=== PATIENT | male | born 1990 | race Caucasian/White ===

== ENCOUNTER 2017-10-29 21:27 | Emergency (ER) | payer MEDICAID, SELFPAY ==
[2017-10-29] VITALS (7 sets, daily range): BP systolic 128–172; BP diastolic 77–96; PULSE 71–96; RESP 14–24; TEMP 36.8; O2SAT 96–100; BMI 29.5
--- NOTE | 2017-10-29 21:34 | RAD_ITS ---
STUDY: X-RAY - LEFT ELBOW REASON FOR EXAM: Male, 26 years old. Fall. TECHNIQUE: 3 view(s) of the elbow. COMPARISON: None. FINDINGS: Exam limited by suboptimal positioning because of pain. There is fracture dislocation of the elbow. There is complete dislocation with the radius and ulna dorsal and cephalad to normal position. A displaced fracture fragment is seen probably off of the olecranon. Nondisplaced fracture of the radial head not excluded. Prominent soft tissue swelling. RAD/Elbow 2 Views IMPRESSION: Complete dislocation of the elbow along with at least one displaced fracture fragment. Note that the exam is limited by suboptimal positioning. Electronically Signed: Tyrel Velazquez MD at 22:34 EDT , Service support ,
[2017-10-29] MEDS: 0.9% Normal Saline 1,000 ML 150 ML IV (21:39)
[2017-10-29] MEDS: Ondansetron 4 MG/2 ML Vial IV (21:39)
[2017-10-29] MEDS: HYDROmorphone 1 MG/ML Syringe IV (21:40)
--- NOTE | 2017-10-29 22:53 | RAD_ITS ---
STUDY: X-RAY - LEFT ELBOW REASON FOR EXAM: Male, 26 years old. Post reduction TECHNIQUE: 2 view(s) of the elbow. COMPARISON: Prereduction study of earlier this date FINDINGS: Osseous structures are viewed through cast material. Film positioning is suboptimal. There has been interval reduction of previously noted proximal radial and ulnar dislocations. There is a small fracture fragment of the anterior elbow region, site of origin most likely the coronoid process. The soft tissue structures are unremarkable. RAD/Elbow 2 Views IMPRESSION: Interval reduction of previously noted radial and ulnar dislocations. Small calcific fragment of the anterior elbow joint, site of origin most likely the coronoid process. Electronically Signed: Vasiliy Reynoso MD at 23:45 EDT , Service support ,
--- NOTE | 2017-10-29 22:55 | ED.VISSUMM ---
- ER Visit Summary Date of Service: 10/29/17 Chief Complaint: Left elbow pain History of Present Illness: The patient is a 26 M who states he was skateboarding when he fell injuring the left elbow. EMS notes an obvious dislocation. He was placed in an air splint and transported. Patient states that he last had a cookie around 2000 hours. He states that he does not drink alcohol. He is a smoker. He denies any significant medical problems. He does note that he had prior ORIF of this elbow when he was a child at [facility]. Physical Examination: Afebrile vital signs are stable Gen: Well-nourished well-developed Head: Normocephalic atraumatic Eyes: Perrl EOMI ENT: TMs clear no rhinorrhea moist mucous membranes Neck: Supple no lymphadenopathy no JVD nontender CVS: Regular rate rhythm no murmurs normal S1-S2 Respiratory: No distress clear to auscultation bilaterally chest nontender Abdomen: Soft nontender nondistended normal bowel sounds no masses Back: Nontender Extremity: The left elbow is obviously posteriorly dislocated. There is deformity and limited range of motion. He is neurovascularly intact distally pain particular attention to the radial ulnar and median nerves and radial and ulnar pulses. He has excellent capillary refill. There does not appear to be any breaks in the skin. Skin: Normal color no rash Neuro: alert orientated ?3 CN II-XII intact normal strength sensation reflexes gait cerebellar Psych: Normal affect normal mood Test Results: X-rays revealed a complete elbow dislocation with associated fracture. Emergency Department Course and Treatment: Patient received IV fluids Dilaudid and Zofran. Patient is an ASA classification 1 as well as a Mallampati score of 1. Patient provided informed consent for the use of propofol for procedural sedation. Patient received 1 mg/kg of propofol followed by 0.5 mg/kg aliquots until adequate sedation was achieved. Once adequate sedation was achieved the elbow was easily reduced. It was splinted in a posterior Ortho-Glass splint at 90? and a small anterior piece was added for support. Postreduction films were obtained. Patient was allowed to recover. He remains neurovascularly intact. Patient will need to follow-up with orthopedics as soon as possible. The patient is a recovering heroin addict does not wish to have opiates at home. I will write for some ibuprofen and Tylenol. Impression: 1. Left elbow dislocation and fracture 2. Procedural sedation by emergency physician 3. Reduction of dislocation by emergency physician 4. Splint by emergency physician This note was generated with [employer] dictation software. It may contain incorrect words, spelling, and punctuation that were not noted in review of the chart prior to signing ED Disposition - Plan for ED Patient: Disposition: Home or Assisted Living Chief Complaint: Other, Pain/Inj Instructions: ED Fx Elbow Prescriptions: Acetaminophen [Tylenol Extra Strength] 500 - 1,000 mg PO Q6H PRN PRN #50 tab PRN Reason: Pain Ibuprofen [Motrin] 800 mg PO TID PRN PRN #30 tab PRN Reason: Pain Referrals: Fortino Adrian DO [STAFF PHYSICIAN] - (call on to arrange follow up)
[2017-10-29] MEDS: Propofol 200 MG/20 ML Vial 150 MG IV BOLUS (23:16)
[2017-10-29] MEDS: Propofol 200 MG/20 ML Vial 100 MG IV BOLUS (23:19)
[2017-10-29] MEDS: Ketorolac 30 MG/ML Syringe IV (23:24)
[2017-10-29] MEDS: Ibuprofen 400 MG Tablet 1600 MG PO (23:38)
[2017-10-29] MEDS: Acetaminophen 500 MG Tablet 1000 MG PO (23:39)
== END 2017-10-29 23:44 | disposition home or self-care (01) ==
PROVIDERS: Emergency Provider Emergency Medicine
DX: S42.402A Unspecified fracture of lower end of left humerus, initial encounter for closed fracture (principal); V00.131A Fall from skateboard, initial encounter; Y93.51 Activity, roller skating (inline) and skateboarding; Y92.9 Unspecified place or not applicable; F17.200 Nicotine dependence, unspecified, uncomplicated; F11.21 Opioid dependence, in remission
CPT/HCPCS: 24600; 29405; 73070; 96361; 96374; 96375; 99152; 99285; J7030; A4216; J2405

== ENCOUNTER 2017-10-30 13:14 | Emergency (ER) | payer MEDICAID, SELFPAY ==
[2017-10-30 13:15] VITALS: BP 146/102; PULSE 86; RESP 17; TEMP 36.3; O2SAT 99; BMI 28.3
[2017-10-30 13:30] VITALS: BP 135/80; PULSE 80; RESP 14; O2SAT 98
--- NOTE | 2017-10-30 13:45 | ED.DCSUM_ITS ---
- ER Visit Summary Date of Service: 10/30/17 Chief Complaint: [Swelling to left hand and paresthesias] History of Present Illness: The patient is a 26 M [presents the emergency department with complaint of swelling to his left hand and paresthesias to his thumb and hyperthenar eminence of his left hand. Patient was seen in the emergency department last evening after sustaining a fall and fracturing and dislocating his elbow. Patient had the elbow reduced and was splinted. Patient was advised to return if increased swelling, worsening pain, paresthesias or condition should worsen in any way. Patient states that he is a recovering drug addict and did not take the prescription of Percocet that he was offered. Patient's been using ibuprofen for the discomfort. Patient does not feel that the pain is any worse than it was last night however there is some increased swelling to his hand and he became concerned about. 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 Cranial nerves II through XII grossly intact. TMs clear. Mucous membranes moist. No adenopathy. Cardiovascular-regular rate and rhythm without murmur or ectopy Lungs-clear to auscultation, chest wall stable without crepitus or subcu emphysema Abdomen-normoactive bowel sounds, soft, nontender, no rebound or rigidity, no peritoneal signs. Extremities-intact ?4, normal range of motion, normal pulses. Left arm-patient has a long-arm splint in place and patient does have the arm in a sling. The sling was removed and patient has edema noted of the fingers of the hand. Patient has cap refill of less than 3 seconds. Patient has normal range of motion of the digits. The compartments of the forearm are soft on my examination as I was able to feel them between the posterior volar portions of the splint. Test Results: [None indicated] Emergency Department Course and Treatment: [] Treatment Plan: [Patient follow-up with orthopedics. Patient advised to keep the arm elevated and ice to the area. At this point there is no evidence for compartment syndrome.] Disposition: [Discharged home in stable condition] Impression: [Left elbow pain status post fracture dislocation of left elbow] Edema left hand This note was generated with Dragon dictation software. It may contain incorrect words, spelling, and punctuation that were not noted in review of the chart prior to signing ED Disposition - Plan for ED Patient: Chief Complaint: Upper Extremity Injury Referrals: Care Physician,No Primary [Primary Care Provider] -
--- NOTE | 2017-10-30 13:48 | ED.DEP ---
ED Disposition - Plan for ED Patient: Chief Complaint: Upper Extremity Injury Instructions: ED Fx Elbow Referrals: Care Physician,No Primary [Primary Care Provider] - Additional Instructions: see Surgeon you were advised to follow up with
[2017-10-30 13:58] VITALS: BP 128/78; PULSE 86; RESP 14; O2SAT 99
[2017-10-30] MEDS: Ibuprofen 400 MG Tablet 800 MG PO (14:04)
== END 2017-10-30 14:13 | disposition home or self-care (01) ==
LOC: ED 14:12
PROVIDERS: Emergency Provider Emergency Medicine
DX: S42.402A Unspecified fracture of lower end of left humerus, initial encounter for closed fracture (principal); W19.XXXA Unspecified fall, initial encounter; Y93.9 Activity, unspecified; Y92.9 Unspecified place or not applicable; R60.0 Localized edema; Z72.0 Tobacco use
CPT/HCPCS: 99283

== ENCOUNTER 2017-11-01 16:35 | Emergency (ER) | payer MEDICAID, SELFPAY ==
[2017-11-01 16:36] VITALS: BP 159/84; PULSE 93; RESP 16; TEMP 36.2; O2SAT 98; BMI 28.0
--- NOTE | 2017-11-01 18:02 | CT_ITS ---
CT of the left upper extremity INDICATION: Trauma TECHNIQUE: CT of the left elbow was performed in axial plane without contrast followed by sagittal and coronal reconstructions. Radiographic technique was optimized to limit patient radiation dose. DLP was 622.07. FINDINGS: There is a comminuted intraarticular fracture of the the coronoid process of the ulna with separation of the fracture fragments and tiny bony fragments within the joint space in association with joint effusion. There also appears to be a very subtle chip or avulsed cortical fracture of the anterior medial humeral epicondyle CT/Extremity Upper without Contra IMPRESSION: Limited displaced fracture of the coronoid process of the ulna and possible chip fracture of the anterior medial humeral epicondyle Electronically Signed: Octavio Mahajan MD at 18:51 EDT , Service support ,
--- NOTE | 2017-11-01 19:00 | ED.DCSUM_ITS ---
- ER Visit Summary Date of Service: 11/01/17 Chief Complaint: Need a CT of my elbow History of Present Illness: The patient is a [address] Adrian. He had a fracture dislocation of his left elbow on October 28. Saw Dr. Adrian in the office today and he ordered a CT for operative planning but they were unable to obtain this as an outpatient so is presented here for the study. Patient reports she has sharp, burning pain in his left elbow that is 10 out of 10 when he sits up is 5 out of 10 after ibuprofen and Tylenol. Denies any paresthesias distally. Physical Examination: Vitals: Stable. Afebrile. General: Well-nourished and well-developed. Head: Normocephalic atraumatic. Neck: Supple, no lymphadenopathy. No JVD. Nontender. Cardiovascular: Regular rate and rhythm. No murmurs. Respiratory: No respiratory distress. Clear to auscultation bilaterally. Abdominal: Soft, nontender, nondistended, normal bowel sounds. No guarding, rebound, or peritoneal signs. Back: Nontender. Extremities: Left arm is in a long-arm posterior splint. He has less than 2 second capillary refill in his fingers. He has normal sensation light touch. Skin: Normal color, no rash. Neurologic: Alert and oriented ?3. Cranial nerves II through XII are intact. Normal strength and sensation. Psych: Normal affect. Test Results: CT of his left elbow shows a minimally displaced fracture of the coronoid process and possible chip fracture of the anterior medial humeral epicondyle. Emergency Department Course and Treatment: Patient's resting comfortably without complaint. Treatment Plan: Patient will be discharged instructions for Dr. Adrian as previously scheduled. Disposition: To home in improved and stable condition. Impression: 1. Left elbow fracture, repeat visit. This note was generated with [employer] dictation software. It may contain incorrect words, spelling, and punctuation that were not noted in review of the chart prior to signing ED Disposition - Plan for ED Patient: Disposition: Home or Assisted Living Chief Complaint: Upper Extremity Injury Instructions: ED Fx Elbow Referrals: Fortino Adrian DO [STAFF PHYSICIAN] - Keep Gabino appointment
[2017-11-01 19:15] VITALS: RESP 18
--- NOTE | 2017-11-01 19:15 | NURSING ---
pt states he understands d/c instructions and will follow up with lashawn
== END 2017-11-01 19:15 | disposition home or self-care (01) ==
LOC: ED 18:06
PROVIDERS: Emergency Provider Emergency Medicine
DX: S42.132A Displaced fracture of coracoid process, left shoulder, initial encounter for closed fracture (principal); X58.XXXA Exposure to other specified factors, initial encounter; Z72.0 Tobacco use
CPT/HCPCS: 73200; 99282

== ENCOUNTER 2017-11-06 21:30 | Emergency (ER) | payer MEDICAID, SELFPAY ==
[2017-11-06 21:31] VITALS: BP 144/81; PULSE 62; RESP 14; TEMP 36.5; O2SAT 98; BMI 28.5
== END 2017-11-06 21:48 | disposition left against medical advice (07) ==
LOC: ED 21:45
PROVIDERS: Emergency Provider Emergency Medicine
DX: R69 Illness, unspecified (principal)

== ENCOUNTER 2019-02-06 20:12 | Observation (INO) | payer MEDICAID, SELFPAY ==
[2019-02-06 20:13] VITALS: BP 148/100; PULSE 88; RESP 16; TEMP 36.7; O2SAT 100; BMI 22.7
--- NOTE | 2019-02-06 20:47 | ED.DCSUM_ITS ---
History of Present Illness Chief Complaint: Substance Abuse Informant: Patient Context: Gradual Onset Timing: Intermittent Maximum Severity: Severe Narrative: Patient is a 28-year-old male with history of IV drug abuse and hepatitis C presenting with request for detox. He states that he has been using IV heroin multiple times a day for the past year. He is also been using meth quite regularly but not as much. He states he last use this morning. He is currently complaining of stomach cramps, headache and chills as well as nausea. He states he last detoxed in 2018 when he was in long term. At that time he was clean for 10 months. He denies any regular alcohol use. He denies any recent fever, chills or other complaints. Past Medical History - Allergies and Home Meds Allergies/Adverse Reactions: Allergies latex Allergy (Verified 11/06/17 21:36) Hives Penicillins [PCN] Allergy (Verified 11/06/17 21:36) Anaphylaxis venom-honey bee [bee venom (honey bee)] Allergy (Verified 11/06/17 21:36) Swelling Past Medical History: - - Hepatitis C, IVDU Surgical History: noncontributory, - - Cholecystectomy, R ORIF Clavicle, RUE ganglion cyst, Reconstruction LUE. Smoking Status: Current every day smoker - Family History Maternal Family History: Reports: Diabetes, Heart Disease, Hypertension Paternal Family History: Reports: Diabetes, Heart Disease, Hypertension Sibling Family History: Reports: No pertinent history Review of Systems All systems negative except as indicated General: Reports: Chills, Malaise Gastrointestinal: Reports: Abdominal pain, Nausea, Vomiting Physical Exam Vital Signs/Narrative: Vital Signs Temp Pulse Resp BP Pulse Ox 02/06/19 20:13 98.1 F 88 16 148/100 H 100 Inital Vital Signs reviewed: Yes General: Well nourished, Well developed, No Acute Distress Head: Normocephalic, Atraumatic Eyes: Perrl, EOMI ENT: Moist mucous membranes, No rhinorrhea Neck: Supple, Nontender Cardiovascular: Regular rate, Regular rhythm Respiratory: No distress, Chest nontender Abdomen: Soft, Nondistended, Normal bowel sounds, Tender - diffuse, mild . Negative for: Guarding, Rebound tenderness Back: Nontender, Normal Inspection Extremities: Nontender, No edema Skin: Normal color, No rash, - - Track ruiz on the left upper extremity, no surrounding cellulitic changes Neurological: Alert, Oriented x3, Cranial nerves II-XII grossly intact, Normal Strength, Normal Sensation Psychological: Normal affect, Normal Mood Diagnostic/Tx/Re-eval Laboratory Data 02/06/19 02/06/19 02/06/19 21:30 21:30 21:30 WBC 5.7 RBC 4.73 Hgb 13.4 Hct 42.5 MCV 89.9 MCH 28.3 MCHC 31.5 L RDW Std Deviation 47.6 H RDW Coeff of Vanesas 14.5 Plt Count 239 MPV 9.6 Immature Gran % (Auto) 0.900 Neut % (Auto) 41.5 L Lymph % (Auto) 46.4 H Coffee % (Auto) 6.5 Eos % (Auto) 4.0 Baso % (Auto) 0.7 Absolute Neuts (auto) 2.4 Absolute Lymphs (auto) 2.66 Nucleated RBC % 0 Differential Comment SCANNED PT 12.7 INR 1.0 Sodium Potassium Chloride Carbon Dioxide Anion Gap BUN Creatinine Estim Creat Clear Calc Est GFR (MDRD) Af Amer Est GFR (MDRD) Non-Af BUN/Creatinine Ratio Glucose Calcium Total Bilirubin AST ALT Alkaline Phosphatase Total Protein Albumin Globulin Albumin/Globulin Ratio Urine Opiates Screen Urine Methadone Screen Ur Barbiturates Screen Ur Phencyclidine Scrn Ur Amphetamines Screen U Methamphetamin-MDMA U Benzodiazepines Scrn Urine Cocaine Screen U Cannabinoids Screen Ur Drug Screen Comment Ethyl Alcohol 17.0 02/06/19 02/06/19 21:30 21:40 WBC RBC Hgb Hct MCV MCH MCHC RDW Std Deviation RDW Coeff of Vanessa Plt Count MPV Immature Gran % (Auto) Neut % (Auto) Lymph % (Auto) Coffee % (Auto) Eos % (Auto) Baso % (Auto) Absolute Neuts (auto) Absolute Lymphs (auto) Nucleated RBC % Differential Comment PT INR Sodium 138 Potassium 3.9 Chloride 102 Carbon Dioxide 32.0 Anion Gap 4 L BUN 12 Creatinine 0.84 Estim Creat Clear Calc 132.96 Est GFR (MDRD) Af Amer 140 Est GFR (MDRD) Non-Af 116 BUN/Creatinine Ratio 14.3 Glucose 84 Calcium 8.8 Total Bilirubin 1.60 H AST 564 H ALT 1549 H Alkaline Phosphatase 592 H Total Protein 7.2 Albumin 3.0 L Globulin 4.2 Albumin/Globulin Ratio 0.7 L Urine Opiates Screen NEGATIVE Urine Methadone Screen NEGATIVE Ur Barbiturates Screen NEGATIVE Ur Phencyclidine Scrn NEGATIVE Ur Amphetamines Screen POSITIVE H U Methamphetamin-MDMA NEGATIVE U Benzodiazepines Scrn NEGATIVE Urine Cocaine Screen NEGATIVE U Cannabinoids Screen NEGATIVE Ur Drug Screen Comment Ethyl Alcohol - Medical Decision Making Patient is evaluated for opioid withdrawal. Presentation and symptoms are consistent with this. Tox panel is negative for opioids the patient states he been using heroin. Patient also admits to methamphetamine use. She was given clonidine and Zofran for symptomatic treatment. Screening lab work is obtained which shows a transaminitis but no other acute process. Patient does have a known history of hepatitis which is likely causing this transaminitis. Patient is admitted to hospitalist service for detox. He is agreeable with this plan. He is stable for the general medical floor at time of disposition. Patient denies regular alcohol use and I am not concerned for alcohol withdrawal at this time. ED Disposition - Plan for ED Patient: Disposition: Acute Care Hospital [facility] Diagnosis: Opioid withdrawal syndrome, Polysubstance (including opioids) dependence, daily use, Transaminitis
[2019-02-06] MEDS: Ondansetron ODT 4 MG Tablet PO (21:00)
[2019-02-06] MEDS: Clonidine HCl 0.1 MG, Clonidine HCl 0.2 MG 0.3 MG PO (21:25)
[2019-02-06 21:34] LABS: Absolute Lymphocyte Count 2.66 X10^3/uL (0.83-4.51); Absolute Neutrophil Count 2.4 X10^3/uL (2.0-7.7); Basophil# 0.04 X10^3/uL; Basophil% 0.7 % (0-1); Eosinophil# 0.23 X10^3/uL; Hematocrit 42.5 % (40-54); Hemoglobin 13.4 g/dL (13.0-16.5); Lymphocyte # 2.66 X10^3/ul (4.0); Lymphocyte % 46.4 % (19-41); Mean Corp Hgb Conc 31.5 g/dL (32-36); Mean Corpuscular Hgb 28.3 pg (27.0-32.0); Mean Corpuscular Volume 89.9 fL (80-94); Mean Platelet Vol. 9.6 fl (6.2-12.0); Monocyte# 0.37 X10^3/uL; Monocyte% 6.5 % (0-10); NRBC Flagged by Analyzer 0 % (0-5); Neutrophil # 2.38 X10^3/uL (2.7-7.7); Neutrophil % 41.5 % (47-70); POSITIVE MORPHOLOGY YES; Platelet Count 239 K/mm3 (150-450); RBC Distribution Width CV 14.5 % (11.6-14.6); RBC Distribution Width SD 47.6 fl (35.1-43.9); Red Blood Count 4.73 M/mm3 (4.6-6.2); White Blood Count 5.7 K/mm3 (4.4-11.0)
[2019-02-06 21:37] LABS: Differential Indicated SCAN CRITERIA MET
[2019-02-06 21:53] LABS: Differential Comment SCANNED
[2019-02-06 21:56] LABS: Prothrombin Time (Protime)PT. 12.7 SECONDS (11.7-14.9)
[2019-02-06 22:15] LABS: ALB/GLOB Ratio 0.7 RATIO (0.9-2.4); AST(SGOT) 564 U/L (15-37); Alanine Aminotransfer ALT/SGPT 1549 U/L (16-61); Alkaline Phosphatase 592 U/L (45-117); Anion Gap 4 (5-15); BUN 12 mg/dL (7-18); BUN/Creat Ratio 14.3 RATIO (10-20); Calcium,Total 8.8 mg/dL (8.5-10.1); Chloride 102 mmol/L (98-107); Creatinine, Serum 0.84 mg/dL (0.70-1.30); EST Glomerular Filtration Rate 116 mL/min (>60); Est Glom Filt Rate - Afr Amer 140 mL/min (>60); Estimated Creatinine Clearance 132.96 ml/min; Globulin 4.2 g/dL (2.2-4.2); Glucose 84 mg/dL (74-106); Potassium 3.9 mmol/L (3.5-5.1); Protein, Total 7.2 g/dL (6.4-8.2); Sodium Level 138 mmol/L (136-145)
[2019-02-06 22:15] LABS: Amphetamine Urine VISTA POSITIVE (<1000 ng/mL); Barbiturate Urine VISTA NEGATIVE (< 200 ng/mL); Benzodiazepine Urine VISTA NEGATIVE (< 200 ng/mL); Cocaine Urine VISTA NEGATIVE (< 300 ng/mL); Ecstacy Urine VISTA NEGATIVE (< 500 ng/mL); Methadone Urine VISTA NEGATIVE (< 300 ng/mL); PCP Urine VISTA NEGATIVE (< 25 ng/mL); THC Urine VISTA NEGATIVE (< 50 ng/mL); Vista UDS pH Range 7
--- NOTE | 2019-02-06 22:56 | PCM.HP.STD ---
Problem List (1) Opioid withdrawal syndrome Status: Acute (2) Polysubstance (including opioids) dependence, daily use Status: Acute (3) Wound infection complicating hardware Status: Inactive Qualifiers: Encounter type: initial encounter Qualified Code(s): T84.7XXA - Infection and inflammatory reaction due to other internal orthopedic prosthetic devices, implants and grafts, initial encounter (4) Infection of clavicle Status: Inactive (5) Heroin abuse Status: Chronic (6) Tobacco use Status: Chronic (7) Methamphetamine abuse Status: Chronic (8) Hepatitis C Status: Chronic Qualifiers: Viral hepatitis chronicity: unspecified Hepatic coma status: without hepatic coma Qualified Code(s): B19.20 - Unspecified viral hepatitis C without hepatic coma History of Present Illness Date of Admission: 02/06/19 Chief Complaint: Opioid withdrawal symptoms The patient is a 28 year old M with history of chronic opioid use, IV heroin and methamphetamine, chronic hepatitis C came to ER for multiple symptoms of heroin withdrawal including stomach cramps, muscle aches and pains, headache, chills, nausea, restlessness and tremors. His last dose was in the morning today; more than 12 hours ago. He does have grams heroin every day since teenage. Patient also uses methamphetamine IV. Smokes a pack per day since teenage. Denies alcohol use. Patient was largest detox in 2018 when he was in the senior care. [] Past Medical History Past Medical History (Chronic Problems): Chronic Problems Heroin abuse (Chronic) Tobacco use (Chronic) Methamphetamine abuse (Chronic) Hepatitis C (Chronic) Allergies latex Allergy (Verified 11/06/17 21:36) Hives Penicillins [PCN] Allergy (Verified 11/06/17 21:36) Anaphylaxis venom-honey bee [bee venom (honey bee)] Allergy (Verified 11/06/17 21:36) Swelling Home Medications: Ambulatory Orders Medication Instructions Recorded NK 02/06/19 Surgical History: noncontributory, - - Cholecystectomy, R ORIF Clavicle, RUE ganglion cyst, Reconstruction LUE. Smoking Status: Current every day smoker - *Family History Maternal History Items: Diabetes, Heart Disease, Hypertension Paternal History Items: Diabetes, Heart Disease, Hypertension Sibling History Items: No pertinent history Review of Systems Constitutional: Reports: Chills, Malaise, Weakness HEENT: Reports: Head Aches. Denies: Sinus Congestion, Sinus Drainage Cardiovascular: Denies: Chest Pain, Palpitations Respiratory: Denies: Cough, Shortness of breath at rest, Sputum production Gastrointestinal: Reports: Abdominal Pain, Nausea. Denies: Vomiting Genitourinary: Denies: Dysuria, Frequency, Hematuria, Urgency Musculoskeletal: Reports: Muscle pain. Denies: Joint Pain, Joint Tenderness Skin: Denies: Rash, Wounds Neurological: Denies: Numbness, Tingling, Focal weakness Psychiatric: Reports: Anxiety. Denies: Depression, Homicidal Ideations, Suicidal Ideations Hematologic/ Lymphatic: Denies: Easy Bruising, Easy Bleeding VTE Information - Inpt Only VTE Present on Admission: No VTE Mechan Device Prophylaxis: None VTE Pharm Prophylaxis ordered?: No Reason prophylaxis not ordered:: Procedure Not Indicated - Low risk Patient Problems: Active and Suspected Problems Opioid withdrawal syndrome (Acute) Polysubstance (including opioids) dependence, daily use (Acute) - Physical Exam General: Alert, Oriented x3, Cooperative HEENT: Atraumatic, PERRLA, EOMI, Normocephalic Neck: Supple, No JVD, Negative Carotid Bruits Lungs: Clear to auscultation, Normal air movement, No rhonchi, No wheeze, No rales Cardiovascular: Regular rate, Regular Rhythm, Normal S1, Normal S2, No murmurs Abdomen: Bowel Sounds Present, Soft, Non Tender, Non-Distended Extremities: No edema, Capillary Refill Less than 3 Seconds Skin: No rashes, No breakdown Musculoskeletal: No Tenderness to Palpation of Joints or Extremities, Tenderness - Diffuse muscle tenderness. Neurological: Cranial nerves II-XII grossly intact, Deep Tendon Reflexes 2+/4 and Symmetrical, Neuro grossly intact, Motor Exam 5/5 strength throughout Psych/Mental Status: Normal Affect, Appropriate Vital Signs Temp Pulse Resp BP Pulse Ox 98.1 F 88 16 148/100 H 100 02/06/19 20:13 02/06/19 20:13 02/06/19 20:13 02/06/19 20:13 02/06/19 20:13 Oxygen Delivery Method Room Air Weight: 158 lb 4.67 oz Body Mass Index (BMI) 22.7 Laboratory Tests Past 24 Hrs 02/06/19 02/06/19 02/06/19 21:30 21:30 21:30 WBC 5.7 RBC 4.73 Hgb 13.4 Hct 42.5 MCV 89.9 MCH 28.3 MCHC 31.5 L RDW Std Deviation 47.6 H RDW Coeff of Vanessa 14.5 Plt Count 239 MPV 9.6 Immature Gran % (Auto) 0.900 Neut % (Auto) 41.5 L Lymph % (Auto) 46.4 H [place] % (Auto) 6.5 Eos % (Auto) 4.0 Baso % (Auto) 0.7 Absolute Neuts (auto) 2.4 Absolute Lymphs (auto) 2.66 Nucleated RBC % 0 Differential Comment SCANNED PT 12.7 INR 1.0 Sodium Potassium Chloride Carbon Dioxide Anion Gap BUN Creatinine Estim Creat Clear Calc Est GFR (MDRD) Af Amer Est GFR (MDRD) Non-Af BUN/Creatinine Ratio Glucose Calcium Total Bilirubin AST ALT Alkaline Phosphatase Total Protein Albumin Globulin Albumin/Globulin Ratio Urine Opiates Screen Urine Methadone Screen Ur Barbiturates Screen Ur Phencyclidine Scrn Ur Amphetamines Screen U Methamphetamin-MDMA U Benzodiazepines Scrn Urine Cocaine Screen U Cannabinoids Screen Ur Drug Screen Comment Ethyl Alcohol 17.0 02/06/19 02/06/19 21:30 21:40 WBC RBC Hgb Hct MCV MCH MCHC RDW Std Deviation RDW Coeff of Vanessa Plt Count MPV Immature Gran % (Auto) Neut % (Auto) Lymph % (Auto) [place] % (Auto) Eos % (Auto) Baso % (Auto) Absolute Neuts (auto) Absolute Lymphs (auto) Nucleated RBC % Differential Comment PT INR Sodium 138 Potassium 3.9 Chloride 102 Carbon Dioxide 32.0 Anion Gap 4 L BUN 12 Creatinine 0.84 Estim Creat Clear Calc 132.96 Est GFR (MDRD) Af Amer 140 Est GFR (MDRD) Non-Af 116 BUN/Creatinine Ratio 14.3 Glucose 84 Calcium 8.8 Total Bilirubin 1.60 H AST 564 H ALT 1549 H Alkaline Phosphatase 592 H Total Protein 7.2 Albumin 3.0 L Globulin 4.2 Albumin/Globulin Ratio 0.7 L Urine Opiates Screen NEGATIVE Urine Methadone Screen NEGATIVE Ur Barbiturates Screen NEGATIVE Ur Phencyclidine Scrn NEGATIVE Ur Amphetamines Screen POSITIVE H U Methamphetamin-MDMA NEGATIVE U Benzodiazepines Scrn NEGATIVE Urine Cocaine Screen NEGATIVE U Cannabinoids Screen NEGATIVE Ur Drug Screen Comment Ethyl Alcohol Assessment/Plan All Active Problems Opioid withdrawal syndrome (Acute) Polysubstance (including opioids) dependence, daily use (Acute) The patient is a 28 year old M with history of chronic opioid use, IV heroin and methamphetamine, chronic hepatitis C came to ER for multiple symptoms of heroin withdrawal including stomach cramps, muscle aches and pains, headache, chills, nausea, restlessness and tremors. 1. Acute opioid withdrawal syndrome: [facility]. Started on order set for stabilization of withdrawal syndrome with Librium scheduled and taper dose, clonidine, hydroxyzine, Motrin, methocarbamol, trazodone and clonidine. Labs reviewed. U tox positive of methamphetamine. 2. Polysubstance use including amphetamines urinary dependence, nicotine dependence/cigarette smoking: On nicotine patch. 3. Chronic hepatitis C with elevated transaminases: ALT 1549, AST 564, alkaline phosphatase 592. Albumin is 3.0. Right upper quadrant sonogram ordered for tomorrow a.m. 4. Patient has history of infection of hardware of right clavicle after clavicular fracture status post ORIF. 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 Hardware was removed on 11/07/18, wound culture consistent with MRSA. DVT prophylaxis: Low risk. Early ambulation encouraged. Laboratory Results 02/06/19 21:30: WBC 5.7, RBC 4.73, Hgb 13.4, Hct 42.5, MCV 89.9, MCH 28.3, MCHC 31.5 L, RDW Std Deviation 47.6 H, RDW Coeff of Vanessa 14.5, Plt Count 239, MPV 9.6, Immature Gran % (Auto) 0.900, Neut % (Auto) 41.5 L, Lymph % (Auto) 46.4 H, [place] % (Auto) 6.5, Eos % (Auto) 4.0, Baso % (Auto) 0.7, Absolute Neuts (auto) 2.4, Absolute Lymphs (auto) 2.66, Nucleated RBC % 0, Differential Comment SCANNED 02/06/19 21:30: PT 12.7, INR 1.0 02/06/19 21:30: Ethyl Alcohol consistent with .0 02/06/19 21:30: Sodium 138, Potassium 3.9, Chloride 102, Carbon Dioxide 32.0, Anion Gap 4 L, BUN 12, Creatinine 0.84, Estim Creat Clear Calc 132.96, Est GFR (MDRD) Af Amer 140, Est GFR (MDRD) Non-Af 116, BUN/Creatinine Ratio 14.3, Glucose 84, Calcium 8.8, Total Bilirubin 1.60 H, AST 564 H, ALT 1549 H, Alkaline Phosphatase 592 H, Total Protein 7.2, Albumin 3.0 L, Globulin 4.2, Albumin/Globulin Ratio 0.7 L 02/06/19 21:40: Urine Opiates Screen NEGATIVE, Urine Methadone Screen NEGATIVE, Ur Barbiturates Screen NEGATIVE, Ur Phencyclidine Scrn NEGATIVE, Ur Amphetamines Screen POSITIVE H, U Methamphetamin-MDMA NEGATIVE, U Benzodiazepines Scrn NEGATIVE, Urine Cocaine Screen NEGATIVE, U Cannabinoids Screen NEGATIVE, Ur Drug Screen Comment Code Visit Inpatient E&M: 67612 Init Hosp L3
[2019-02-07 00:04] VITALS: BMI 21.9; BMI 22.0
[2019-02-07 00:16] VITALS: BP 144/82; PULSE 71; RESP 20; TEMP 36.8; O2SAT 99
[2019-02-07] MEDS: traZODone 50 MG Tablet PO (00:53)
[2019-02-07] MEDS: chlordiazePOXIDE 25 MG Capsule PO ×3 (00:53→09:47)
[2019-02-07] MEDS: Buprenorphine HCl 2 MG TAB.SUBL 4 MG SL ×2 (00:55→09:47)
[2019-02-07 04:10] VITALS: BP 134/72; PULSE 50; RESP 18; TEMP 36.3; O2SAT 98
--- NOTE | 2019-02-07 06:56 | PN_ITS ---
Subjective: The patient is a 28-year-old male with a past medical history of polysubstance abuse, infection of his clavicle in the past, wound infection co mplicating orthopedic hardware in the past (hardware removed in October 2018), tobacco dependence and hep C. He presented to the emergency department at [facility] on 02/06/2019 complaining of stomach cramps, muscle aches and pains, headache, chills, nausea and restlessness presumed to be secondary to acute heroin withdrawal. He has been using heroin since he was a teenager. He also uses intravenous methamphetamine. His last detox was in 2018 when he was incarcerated and when he was released from jail he was sober for 10 months. Vital signs at presentation to the emergency department were temperature 98.1, pulse rate 88, blood pressure 148/100, respiratory rate 16 and he was 100% saturated on room air. CBC was unremarkable. CMP was significant for a total bilirubin of 1.6, AST of 564, ALT of 1549, alkaline phosphatase 592 and albumin of 3.0. Tox screen was positive for methamphetamine. He was admitted to [facility] for medical stabilization for acute opiate withdrawal. Security was called this AM because he was screaming in his room and disturbing other patients. He was also punching the keenan. His GF came in and when I attempted to enter the room he slammed the door in my face and said now is not a good time. He also thrust the door shut when the charge nurse entered the room. He had 2 knives with him and at least 1 syringe. His GF was obviously impaired. The police came up to the floor and he agreed to let them search his belongings for syringes and weapons. When the officer lifted a sweater on the ledge up he jumped up and said he wanted the muffin on the top of the sweater and then proceeded to shake the sweater and allow the muffin pieces to fall on the floor. While the door was a little open I saw ripped up paper on the floor and blankets and sheets on the floor. I felt he was a danger to the staff and myself and I suspect the GF brought drugs with her. Behavior was very bizarre and I asked the officers to please escort him out of the hospital and he was discharged. - Physical Exam Vital Signs Temp Pulse Resp BP Pulse Ox 97.3 F L 50 L 18 134/72 H 98 02/07/19 04:10 02/07/19 04:10 02/07/19 04:10 02/07/19 04:10 02/07/19 04:10 Oxygen Delivery Method Room Air Weight: 153 lb 3.54 oz Body Mass Index (BMI) 21.9 Intake and Output for Last 24 Hours 02/05/19 02/06/19 02/07/19 23:59 23:59 23:59 Intake Total 300 / 300 Balance 300 / 300 Laboratory Tests Past 24 Hrs 02/06/19 02/06/19 02/06/19 21:30 21:30 21:30 WBC 5.7 RBC 4.73 Hgb 13.4 Hct 42.5 MCV 89.9 MCH 28.3 MCHC 31.5 L RDW Std Deviation 47.6 H RDW Coeff of Vanessa 14.5 Plt Count 239 MPV 9.6 Immature Gran % (Auto) 0.900 Neut % (Auto) 41.5 L Lymph % (Auto) 46.4 H [place] % (Auto) 6.5 Eos % (Auto) 4.0 Baso % (Auto) 0.7 Absolute Neuts (auto) 2.4 Absolute Lymphs (auto) 2.66 Nucleated RBC % 0 Differential Comment SCANNED PT 12.7 INR 1.0 Sodium Potassium Chloride Carbon Dioxide Anion Gap BUN Creatinine Estim Creat Clear Calc Est GFR (MDRD) Af Amer Est GFR (MDRD) Non-Af BUN/Creatinine Ratio Glucose Calcium Total Bilirubin AST ALT Alkaline Phosphatase Total Protein Albumin Globulin Albumin/Globulin Ratio Urine Opiates Screen Urine Methadone Screen Ur Barbiturates Screen Ur Phencyclidine Scrn Ur Amphetamines Screen U Methamphetamin-MDMA U Benzodiazepines Scrn Urine Cocaine Screen U Cannabinoids Screen Ur Drug Screen Comment Ethyl Alcohol 17.0 02/06/19 02/06/19 21:30 21:40 WBC RBC Hgb Hct MCV MCH MCHC RDW Std Deviation RDW Coeff of Vanessa Plt Count MPV Immature Gran % (Auto) Neut % (Auto) Lymph % (Auto) [place] % (Auto) Eos % (Auto) Baso % (Auto) Absolute Neuts (auto) Absolute Lymphs (auto) Nucleated RBC % Differential Comment PT INR Sodium 138 Potassium 3.9 Chloride 102 Carbon Dioxide 32.0 Anion Gap 4 L BUN 12 Creatinine 0.84 Estim Creat Clear Calc 132.96 Est GFR (MDRD) Af Amer 140 Est GFR (MDRD) Non-Af 116 BUN/Creatinine Ratio 14.3 Glucose 84 Calcium 8.8 Total Bilirubin 1.60 H AST 564 H ALT 1549 H Alkaline Phosphatase 592 H Total Protein 7.2 Albumin 3.0 L Globulin 4.2 Albumin/Globulin Ratio 0.7 L Urine Opiates Screen NEGATIVE Urine Methadone Screen NEGATIVE Ur Barbiturates Screen NEGATIVE Ur Phencyclidine Scrn NEGATIVE Ur Amphetamines Screen POSITIVE H U Methamphetamin-MDMA NEGATIVE U Benzodiazepines Scrn NEGATIVE Urine Cocaine Screen NEGATIVE U Cannabinoids Screen NEGATIVE Ur Drug Screen Comment Ethyl Alcohol Medical Necessity - Tobacco Use Smoking Status: Current every day smoker Assessment/Plan All Active Problems Opioid withdrawal syndrome (Acute) Polysubstance (including opioids) dependence, daily use (Acute) Transaminitis (Acute) Impressions 1. acute opiate withdrawal 2. polysubstance abuse 3. aggressive behavior - putting hospital personnel at risk DC
--- NOTE | 2019-02-07 07:03 | US_ITS ---
STUDY: ABDOMINAL ULTRASOUND - RIGHT UPPER QUADRANT REASON FOR VISIT: Male, 28 years old hepatitis C TECHNIQUE: Ultrasound evaluation of the right upper quadrant was performed with real-time and static momin-scale imaging. TECHNICAL QUALITY: Adequate. COMPARISON: None. FINDINGS: Liver: The liver measures 16.3 cm. There is normal echogenicity of the liver. The bile ducts are within normal limits. There is hepatic color flow. The direction of portal flow is hepatopetal. There is no demonstrated mass lesion. Gallbladder: Status post cholecystectomy. Common Bile Duct (C.B.D.): The common bile duct measures 3.2 mm. Pancreas: Normal size of the head, body and tail of the pancreas. There is normal echogenicity of the pancreas. There is no demonstrated pancreatic mass or cyst. Right Kidney: Normal size of the right kidney. The right kidney measures 11.9 x 6.2 x 4.7 cm. Normal renal cortex. The right cortex measures 1.3 cm. There is no demonstrated renal mass or cyst. There is no right hydronephrosis. US/Liver IMPRESSION: Normal right upper quadrant ultrasound examination. Electronically Signed: Dillan Chavez DO at 8:47 EDT Tel [phone], Service support ,
[2019-02-07 08:38] LABS: Prothrombin Time (Protime)PT. 12.8 SECONDS (11.7-14.9)
[2019-02-07 09:40] VITALS: BP 136/94; PULSE 64; RESP 18; TEMP 36.5; O2SAT 98
[2019-02-07] MEDS: Ibuprofen 600 MG Tablet 400 MG PO (09:47)
[2019-02-07] MEDS: Methocarbamol 750 MG Tablet PO (09:47)
--- NOTE | 2019-02-07 10:10 | NURSING ---
Pt heard yelling/screaming, this nurse entered room. Pt in bathroom, talking on phone and yelling, pounded bathroom wall with arm. Pt came out of the bathroom, visitor at bedside. Pt yelled loudly at visitor to leave his room and pt began putting his clothes on stating he was leaving, stating I have to go see my girlfriend. Pt's visitor left room and went into hallway. Pt sat on floor, rocking back and forth and crying I just don't know what to do!. Pt called girlfriend again on phone, pt talking calmly at this time. Pt talked calmly to staff about wanting to see/talk to his girlfriend. Pt walking around in room with keren on, noted 2 pocket knives in pt's backpocket. When asked about them, pt easily gave them up to this nurse and 2 pocket knives were locked up in business support administrator room and pt told that he will get knives back when he leaves. Pt also pulled a syringe out of his pocket and asked if he could put syringe in sharps container. Syringe disposed of in sharps container. Pt calm at this time, told this nurse to tell his male visitor to come back at 1500. Security up on floor and talked to patient. Pt remains calm at this time.
--- NOTE | 2019-02-07 10:56 | NURSING ---
At 1005 this RN was walking near pt room and heard very loud bang- pt was in his bathroom and used his hand to hit the wall and was yelling at his friend, the one who brought pt to hospital. Due to loud yelling difficult to understand what was going on- however, pt stated something about can't live without his girl and that he doesn't want anyone else. This RN called security at 1008 and Sam came to unit. In the mean time pt exited bathroom and sat down on the floor at the end of his bed and yelled at the top of his voice that he really wants to do this but that he cannot if he doesn't have his . Other patient on unit and staff were disturbed by this interruption. Sam on unit and spoke with pt and his friend. Friend left and girlfriend agreed to come to hospital to see pt. Pt returned to bed after hearing this with no further issues. It was found that pt had 2 knives in his back pocket and a syringe that he discarded into the sharps container. Knives were locked up by primary nurse in room. Due to safety concerns for pt, staff and visitors- pt was placed on room camera. Girlfriend arrived at 1048.
--- NOTE | 2019-02-07 14:00 | NURSING ---
Police and security on floor at this time. Pt's female visitor left room and went down elevators off of 3rd floor. Security followed female visitor when she left.
--- NOTE | 2019-02-07 14:20 | NURSING ---
2 knives that had previously been locked up given to police officers at this time. Pt escorted off floor by security and two police officers.
--- NOTE | 2019-02-07 15:12 | NURSING ---
Girlfriend left pt's room to use bathroom and then came to nurses' desk inquiring what room Mark Darling is in. This RN notified her which room and then she entered room and closed door. Room camera not able to see pt and girlfriend in room and could see things moving toward bottom of camera. Papers were strewn about room- Dr. Potter attempted to enter pt's room to complete assessment and pt yelled, this is not a good time and ran toward door to close it. Staff could not see pt on camera and this RN entered room to ensure safety of patient and visitor. Pt again ran toward door yelling this is not a good time. He was holding a sheet. Girlfriend was in background and placed hands on her cheeks and states, oh my God!. Pt closed door. This RN again looked at camera and could not see pt or girlfriend. Concerned for pt safety and visitor safety security was called with police accompaniment. Dr. Potter on unit at this time and aware of situation. Dr. Potter states that due to concerns for safety for staff and patient that he will be d/c'ed at this time. Girlfriend left immediately. Pt sat in bed eating food from his tray and became upset when police picked up his sweatshirt because he voiced concern over needing the muffin. Patient d/c'ed from unit with police escort.
[2019-02-08 20:18] LABS: Hepatitis A AB, Total Positive (Negative); Hepatitis A IgM Antibody Positive (Negative); Hepatitis B Core AB IgM Negative (Negative); Hepatitis B Core Ab Total Negative (Negative); Hepatitis C Ab >11.0 s/co ratio (0.0-0.9)
--- NOTE | 2019-02-09 07:50 | DS.PCM_ITS ---
Discharge Date and Diagnosis Date of Admission: 02/06/19 Date of Discharge: 02/07/19 - Primary Discharge Diagnosis Acute opiate withdrawal Abnormal LFTs - Secondary Discharge Diagnosis Chronic Problems Opiate dependence Tobacco dependence Methamphetamine abuse (Chronic) Polysubstance abuse Hepatitis C (Chronic) Hospital Course and Treatment Imaging Results: Clinical Impression(s) from Imaging Studies Liver Ultrasound 02/07/19 07:03 IMPRESSION: Normal right upper quadrant ultrasound examination. Electronically Signed: Dillan DO Scott at 8:47 EDT Tel [phone], Service support , None Operations: None Procedures: None Summary of Care Provided: The patient is a 28-year-old male with a past medical history of polysubstance abuse, infection of his clavicle in the past following orthopedic repair of clavicle fracture (hardware removed in October 2018), tobacco dependence and hep C. He presented to the emergency department at [facility] on 02/06/2019 complaining of stomach cramps, muscle aches and pains, headache, chills, nausea and restlessness presumed to be secondary to acute heroin withdrawal. He has been using heroin since he was a teenager. He also uses intravenous methamphetamine. His last detox was in 2018 when he was incarcerated and when he was released from long-term he was sober for 10 months. Vital signs at presentation to the emergency department were temperature 98.1, pulse rate 88, blood pressure 148/100, respiratory rate 16 and he was 100% saturated on room air. CBC was unremarkable. CMP was significant for a total bilirubin of 1.6, AST of 564, ALT of 1549, alkaline phosphatase 592 and albumin of 3.0. Tox screen was positive for methamphetamine. He was admitted to [facility] for medical stabilization for acute opiate withdrawal. On 02/07/2019 in the a.m. security had to be called because he was screaming over the phone to his girlfriend, punching keenan and creating a disturbance to other patients. He was found to have syringes in the pocket of his jeans. He also had 2 knives on his person. He did surrender the knives and the syringes he offered were disposed of. The girlfriend later came in to visit and he shut the door to his room. When I knocked and attempted to enter the room the door was slammed in my face and he yelled this is not a good time. Floor was littered with torn up papers, blankets, sheets and other paraphernalia. When the charge nurse attempted to enter the room the same thing happened. The police were once again summoned and we entered the room. His GF was obviously impaired and she left the room but, could not figure out how to get off the third floor and out of the hospital and she was found wandering the halls and had to be directed out. He had glassy eyes and implored me to let him stay. I explained that in order for me to continue treating him for opiate withdrawal he would need to allow the police to search his belongings for drug paraphernalia and illegal substances, he would have to submit to a repeat drug screen and if his behavior degenerated again he would be immediately discharged. He was agreeable to my conditions. While the police were searching his belongings a sweater was lifted off the ledge and it had a muffin on top of it. He leaped off the bed grabbed a sweater and said I want that muffin and then proceeded to shake it out onto the floor. I highly suspect that the GF brought drugs to the hospital and they were both high. I felt his behavior was aggressive and he brought knives and syringes to the hospital with him. The police had to be summoned twice and I felt hospital personnel were at risk. He was discharged and the police escorted him out of the hospital. He has been seen at [facility] in the past and I suggested he follow up there if he truly wants to get clean. This note was generated with [employer] dictation software. It may contain incorrect words, spelling, and punctuation that were not noted in checking the note before signing. - Physical Exam Vital Signs Temp Pulse Resp BP Pulse Ox 97.7 F L 64 18 136/94 H 98 02/07/19 09:40 02/07/19 09:40 02/07/19 09:40 02/07/19 09:40 02/07/19 09:40 Oxygen Delivery Method Room Air Weight: 153 lb 3.54 oz Body Mass Index (BMI) 21.9 Intake and Output for Last 24 Hours 02/07/19 02/08/19 02/09/19 23:59 23:59 23:59 Intake Total 300 / 300 Balance 300 / 300 Home Medications: Medications to take at Discharge NK 02/06/19 Primary Care Physician: Care Physician,No Primary [Primary Care Provider] - Disposition: Home Minutes spent on discharge:: 30 Patient Condition:: Stable Medical Necessity - Tobacco Use Smoking Status: Current every day smoker Tobacco Use: Cigarettes Meaningful Use Info Meaningful Use Diagnoses (Choose all that apply): None applicable Code Visit Inpatient E&M: 97399 Disch Hosp
[2019-02-09 16:12] LABS: HEPATITIS B SURFACE AG Positive (Negative); Hep B Surface Antibodies Non Reactive (.)
== END 2019-02-07 14:21 | disposition home or self-care (01) ==
LOC: ED 20:50 → MS3 23:13
PROVIDERS: Admitting Provider Internal Medicine; Emergency Provider Emergency Medicine; Referring Provider Internal Medicine; Visit Provider Internal Medicine
DX: F11.23 Opioid dependence with withdrawal (principal); R94.5 Abnormal results of liver function studies; B18.2 Chronic viral hepatitis C; F15.20 Other stimulant dependence, uncomplicated; F17.210 Nicotine dependence, cigarettes, uncomplicated; Z86.14 Personal history of Methicillin resistant Staphylococcus aureus infection
CPT/HCPCS: 36415; 76705; 80053; 80307; 80320; 85025; 85610; 86704; 86705; 86706; 86708; 86709; 86803; 87340; 99218; 99284; A4216; G0378; G0480

== ENCOUNTER 2019-03-11 02:32 | Emergency (ER) | payer MEDICAID, SELFPAY ==
[2019-03-11 02:32] VITALS: BMI 22.7
[2019-03-11 02:33] VITALS: BP 161/101; PULSE 88; RESP 15; TEMP 36.4; O2SAT 98; BMI 23.6
--- NOTE | 2019-03-11 02:38 | ED.RN ---
PT REPORTS THAT HE WEARS GLASSES BUT DOES NOT HAVE THEM WITH HIM. UNABLE TO COMPLETE ACCURATE VISUAL ACUITY. DR. COHEN INFORMED.
--- NOTE | 2019-03-11 02:47 | ED.VIS.GEN ---
History of Present Illness Chief Complaint: Eye Problem Narrative: This patient is a 28-year-old male who presents with left eye pain. He was poked in the left eye with a finger yesterday. He complains of intermittent waxing and waning pain watering and blurry vision. No foreign body. 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 No history of prior similar symptoms. Past Medical History - Allergies and Home Meds Allergies/Adverse Reactions: Allergies latex Allergy (Verified 03/11/19 02:32) Hives Penicillins [PCN] Allergy (Verified 03/11/19 02:32) Anaphylaxis venom-honey bee [bee venom (honey bee)] Allergy (Verified 03/11/19 02:32) Swelling Primary Care Physician: Care Physician,No Primary [Primary Care Provider] - Past Medical History: None Surgical History: noncontributory, - - Cholecystectomy, R ORIF Clavicle, RUE ganglion cyst, Reconstruction LUE. Smoking Status: Current every day smoker - Family History Maternal Family History: Reports: Diabetes, Heart Disease, Hypertension Paternal Family History: Reports: Diabetes, Heart Disease, Hypertension Sibling Family History: Reports: No pertinent history Review of Systems All systems negative except as indicated General: Denies: Fever Eyes: Reports: Blurred vision - left, - - Left eye pain Cardiovascular: Denies: Chest pain Respiratory: Denies: Dyspnea Gastrointestinal: Denies: Nausea, Vomiting Skin: Denies: Rash Neurological: Denies: Headache Physical Exam Vital Signs/Narrative: Vital Signs Temp Pulse Resp BP Pulse Ox 03/11/19 02:33 97.6 F L 88 15 161/101 H 98 Inital Vital Signs reviewed: Yes General: Well nourished, Well developed Head: Normocephalic Eyes: EOMI, - - Left eye conjunctival injection, extraocular motion intact without pain or palsy, light sensitivity noted, pupils are equally round and reactive to light, no hyphema, slit-lamp examination shows a large area of dye uptake consistent with a large corneal abrasion from approximately the 2:00 to 5 o'clock position Cardiovascular: Regular rate Respiratory: No distress Skin: Normal color Neurological: Alert Psychological: Normal affect Diagnostic/Tx/Re-eval - Medical Decision Making Patient had tetracaine instilled left eye and had marked relief of symptoms. Floor seen instilled and slit-lamp examination performed which does show a corneal abrasion. Patient was given ophthalmic antibiotics here instructed on their use and referred to ophthalmology for follow-up ED Disposition - Plan for ED Patient: Disposition: Home or Assisted Living Diagnosis: Corneal abrasion Instructions: ED Corneal Abrasion Referrals: Care Physician,No Primary [Primary Care Provider] - Octavio Mccall MD [STAFF PHYSICIAN] -
[2019-03-11] MEDS: Fluorescein 1 MG STRIP 1 STRIP EACH EYE (02:49)
[2019-03-11] MEDS: Tetracaine 0.5% Ophthalmic Bottle 1 DRP EACH EYE (02:50)
[2019-03-11] MEDS: Gentamicin Sulfate 1 OPTH.BTL 1 DRP LEFT EYE (03:02)
== END 2019-03-11 03:12 | disposition home or self-care (01) ==
PROVIDERS: Emergency Provider Emergency Medicine
DX: S05.02XA Injury of conjunctiva and corneal abrasion without foreign body, left eye, initial encounter (principal); X58.XXXA Exposure to other specified factors, initial encounter; Y93.9 Activity, unspecified; Y92.9 Unspecified place or not applicable; F17.200 Nicotine dependence, unspecified, uncomplicated
CPT/HCPCS: 99283

== ENCOUNTER 2019-04-19 23:15 | Emergency (ER) | payer MEDICAID, SELFPAY ==
[2019-04-19 23:16] VITALS: BP 171/98; PULSE 115; RESP 16; TEMP 37.3; O2SAT 99; BMI 23.4
--- NOTE | 2019-04-20 00:08 | ED.DCSUM_ITS ---
History of Present Illness Chief Complaint: Substance Abuse Informant: Patient Onset: Hours - 12 Context: Gradual Onset Timing: Continuous Quality: shaky, malaise, achy Location: all over Current Severity: Moderate Maximum Severity: Moderate Worsened by: nothing Relieved by: typically by IV narcotic Narrative: Patient presents in withdrawal, he has not used in 12 hours and usually feels withdrawal symptoms starting in 4 or 5 after use, daily use for 10 months now, l onger history of using heroin/fentanyl. He is wanting detox. No recent illness. Takes no prescriptions. Has history of hepatitis C. No suicidal ideation. - Past Medical History (1) Polysubstance (including opioids) dependence, daily use Status: Chronic (2) Hepatitis C Status: Chronic (3) Methamphetamine abuse Status: Suspected Past Medical History - Allergies and Home Meds Allergies/Adverse Reactions: Allergies latex Allergy (Verified 04/19/19 23:17) Hives Penicillins [PCN] Allergy (Verified 04/19/19 23:17) Anaphylaxis venom-honey bee [bee venom (honey bee)] Allergy (Verified 04/19/19 23:17) Swelling Primary Care Physician: Care Physician,No Primary [Primary Care Provider] - Surgical History: noncontributory, - - Cholecystectomy, R ORIF Clavicle, RUE ganglion cyst, Reconstruction LUE. Lives: Alone Smoking Status: Current every day smoker Drugs: Heroin - Family History Maternal Family History: Reports: Diabetes, Heart Disease, Hypertension Paternal Family History: Reports: Diabetes, Heart Disease, Hypertension Sibling Family History: Reports: No pertinent history Review of Systems General: Reports: Malaise. Denies: Chills, Fever, Sweats Eyes: Denies: Visual changes - bilaterally, Diplopia ENT: Denies: Rhinorrhea, Sore throat Cardiovascular: Denies: Chest pain, Palpitations Respiratory: Denies: Dyspnea, Cough, Dyspnea on exertion Gastrointestinal: Denies: Abdominal pain, Nausea, Vomiting, Diarrhea, Melena, Hematochezia Genitourinary: Denies: Dysuria, Hematuria, Frequency Musculoskeletal: Reports: Arthralgias, Back pain. Denies: Extremity Pain Skin: Denies: Rash, Wounds Neurological: Reports: - - shaky. Denies: Headache, Weakness, Numbness Physical Exam Vital Signs/Narrative: Vital Signs Temp Pulse Resp BP Pulse Ox 04/19/19 23:16 99.1 F 115 H 16 171/98 H 99 Inital Vital Signs reviewed: Yes General: Well nourished, Well developed, No Acute Distress Head: Normocephalic, Atraumatic Eyes: Perrl, EOMI ENT: Moist mucous membranes, No rhinorrhea Neck: Supple, Nontender Cardiovascular: Regular rate, Regular rhythm, No murmurs, Tachycardia Respiratory: No distress, CTA bilaterally, Chest nontender Abdomen: Soft, Nontender, Nondistended, Normal bowel sounds Back: Nontender, Normal Inspection Extremities: Nontender, No edema Skin: Normal color, No rash, No Trauma Neurological: Alert, Oriented x3, Cranial nerves II-XII grossly intact, Normal Strength, Normal Sensation, Normal Gait Psychological: Normal affect, Normal Mood Diagnostic/Tx/Re-eval - Medical Decision Making I discussed with hospitalist Dr. Potter. She refuses to admit the patient, due to relatively recent admission for same in which his behavior was aggressive and inappropriate, and he threatened staff. The patient remembers this and understands that his behavior was inappropriate, he thought that he was allowed to come back after he fixed his behavior. At this point since I am unable to admit the patient, he will need to be referred to outpatient rehabilitation services. He was given medications for his withdrawal tonight. ED Disposition - Plan for ED Patient: Disposition: Home or Assisted Living Diagnosis: Opiate abuse, continuous, Opiate withdrawal Instructions: Opiate Abuse, Narcotic Withdrawal Referrals: [facility] [STAFF PHYSICIAN] - As soon as possible
[2019-04-20 00:36] VITALS: RESP 15
== END 2019-04-20 00:30 | disposition home or self-care (01) ==
PROVIDERS: Emergency Provider Emergency Medicine
DX: F11.23 Opioid dependence with withdrawal (principal); F15.10 Other stimulant abuse, uncomplicated; F17.200 Nicotine dependence, unspecified, uncomplicated; B19.20 Unspecified viral hepatitis C without hepatic coma
CPT/HCPCS: 99282

== ENCOUNTER 2019-04-24 14:13 | Emergency (ER) | payer MEDICAID, SELFPAY ==
[2019-04-24 14:15] VITALS: BP 156/110; PULSE 120; RESP 17; TEMP 36.8; O2SAT 99; BMI 22.6
--- NOTE | 2019-04-24 14:27 | RAD_ITS ---
STUDY: X-RAY - RIGHT FOOT CLINICAL: Male, 28 years old. Bilateral foot pain. TECHNIQUE: 3 view(s) of the foot. COMPARISON: None. FINDINGS: Normal talus, calcaneus, and tarsal bones. Normal visualized subtalar, talonavicular, calcaneocuboid, tarsal and tarsometatarsal articulations. Normal metatarsi. Normal metatarsophalangeal joint of the great toe. Normal tibial and fibular sesamoid bones. Normal interphalangeal joint of the great toe. Normal phalanges of the great toe. Normal second through fifth metatarsophalangeal joints. Normal interphalangeal joints and phalanges of the lesser toes. The soft tissue structures are unremarkable. RAD/Foot min 3 Views IMPRESSION: No acute abnormality. Electronically Signed: Kurt Reid MD at 15:22 EST , Service support ,
--- NOTE | 2019-04-24 14:27 | RAD_ITS ---
STUDY: X-RAY - LEFT FOOT CLINICAL: Male, 28 years old. Bilateral foot pain, getting worse. TECHNIQUE: 3 view(s) of the foot. COMPARISON: None. FINDINGS: Generalized osteopenia. Normal talus, calcaneus, and tarsal bones. Normal visualized subtalar, talonavicular, calcaneocuboid, tarsal and tarsometatarsal articulations. Normal metatarsi. Normal metatarsophalangeal joint of the great toe. Normal tibial and fibular sesamoid bones. Normal interphalangeal joint of the great toe. Normal phalanges of the great toe. Normal second through fifth metatarsophalangeal joints. Normal interphalangeal joints and phalanges of the lesser toes. The soft tissue structures are unremarkable. RAD/Foot min 3 Views IMPRESSION: Osteopenia with no acute finding. Electronically Signed: Kurt Reid MD at 15:17 EST , Service support ,
--- NOTE | 2019-04-24 14:29 | ED.VISSUMM ---
- ER Visit Summary Date of Service: 04/24/19 Chief Complaint: Nausea vomiting History of Present Illness: The patient is a 28 M who presents with nausea and vomiting that began today. Patient states he is unable to keep anything down. Patient states that the emesis is stomach contents and undigested food. Patient also admits to loose and watery diarrhea. Patient denies any melena or hematochezia. Patient denies any abdominal pain. Patient denies any dysuria or hematuria. Patient also complains of bilateral foot pain. Patient states that all of his toes hurt with palpation. Patient denies any trauma or injury. Patient has a history of hepatitis C. Physical Examination: Vital signs are stable except for tachycardia of 120. Patient is afebrile. Patient is in no acute distress. Oral mucosa is pink and moist. Neck is supple. Trachea is midline. There is no JVD. Heart was regular and tachycardic. Lungs are clear and equal bilaterally. Abdomen is soft. Bowel sounds are normal. There is mild diffuse tenderness. There is no rebound or guarding noted. Cranial nerves II through XII are intact. There are no focal motor or sensory deficits noted. Musculoskeletal exam reveals tenderness and mild erythema of the digits of both feet. There is no deformity. There is no warmth noted. Pedal pulses are equal bilaterally. Capillary refill was less than 2 seconds in all digits. Test Results: CBC and basic metabolic profile were obtained and were within normal limits. X-rays of both feet were obtained. There is no acute process noted. There is no evidence of osteomyelitis. These were interpreted by the radiologist and myself. Emergency Department Course and Treatment: Patient was given IV fluids here. Patient was feeling better on reevaluation. Patient was instructed to follow-up with his primary care physician in 5 to 7 days. Patient understood and was agreeable with the plan. All questions were answered. Disposition: Discharge home Impression: 1. Nausea and vomiting 2. Bilateral foot pain This note was generated with [employer] dictation software. It may contain incorrect words, spelling, and punctuation that were not noted in review of the chart prior to signing ED Disposition - Plan for ED Patient: Disposition: Home or Assisted Living Diagnosis: Nausea and vomiting, Bilateral foot pain Instructions: VOMITING (6y-Adult) Referrals: Care Physician,Macy Primary [Primary Care Provider] - Susan Sousa [NON-STAFF] - 5-7 Days
[2019-04-24] MEDS: 0.9% Normal Saline 1,000 ML 1000 ML IV (14:49)
[2019-04-24 15:14] LABS: Absolute Lymphocyte Count 0.77 X10^3/uL (0.83-4.51); Absolute Neutrophil Count 7.2 X10^3/uL (2.0-7.7); Basophil# 0.04 X10^3/uL; Basophil% 0.5 % (0-1); Eosinophil# 0.23 X10^3/uL; Eosinophils% 2.6 % (0-5); Hematocrit 47.4 % (40-54); Hemoglobin 15.4 g/dL (13.0-16.5); Lymphocyte # 0.77 X10^3/ul (4.0); Lymphocyte % 8.8 % (19-41); Mean Corp Hgb Conc 32.5 g/dL (32-36); Mean Corpuscular Hgb 28.8 pg (27.0-32.0); Mean Corpuscular Volume 88.6 fL (80-94); Mean Platelet Vol. 9.6 fl (6.2-12.0); Monocyte# 0.49 X10^3/uL; Monocyte% 5.6 % (0-10); NRBC Flagged by Analyzer 0 % (0-5); Neutrophil # 7.17 X10^3/uL (2.7-7.7); Platelet Count 229 K/mm3 (150-450); RBC Distribution Width SD 42.2 fl (35.1-43.9); Red Blood Count 5.35 M/mm3 (4.6-6.2); White Blood Count 8.7 K/mm3 (4.4-11.0)
--- NOTE | 2019-04-24 15:16 | ED.RN ---
PT DROWSY, HAS TO BE AWAKENED FREQUENTLY DURING ASSESSMENT. AWAKENS AND ANSWERS APPROPRIATELY TO VOICE.
[2019-04-24 15:21] LABS: Anion Gap 5 (5-15); BUN 19 mg/dL (7-18); BUN/Creat Ratio 20.8 RATIO (10-20); Calcium,Total 9.2 mg/dL (8.5-10.1); Chloride 99 mmol/L (98-107); Creatinine, Serum 0.91 mg/dL (0.70-1.30); EST Glomerular Filtration Rate 105 mL/min (>60); Est Glom Filt Rate - Afr Amer 127 mL/min (>60); Estimated Creatinine Clearance 122.51 ml/min; Glucose 93 mg/dL (74-106); Sodium Level 139 mmol/L (136-145)
--- NOTE | 2019-04-24 15:40 | ED.RN ---
pt left prior to receiving discharge instructions. pt removed own IV.
== END 2019-04-24 15:42 | disposition home or self-care (01) ==
PROVIDERS: Emergency Provider Emergency Medicine
DX: R11.2 Nausea with vomiting, unspecified (principal); M79.672 Pain in left foot; M79.671 Pain in right foot; B19.20 Unspecified viral hepatitis C without hepatic coma; F11.90 Opioid use, unspecified, uncomplicated; F15.90 Other stimulant use, unspecified, uncomplicated; Z72.0 Tobacco use
CPT/HCPCS: 73630; 80048; 85025; 96360; 99285; J7030; A4216

== ENCOUNTER 2019-07-14 12:40 | Inpatient (IN) | payer SELFPAY ==
[2019-07-14 12:41] VITALS: BP 156/89; PULSE 105; RESP 16; TEMP 36.8; O2SAT 99; BMI 23.6
--- NOTE | 2019-07-14 13:09 | ED.DCSUM_ITS ---
- ER Visit Summary Date of Service: 07/14/19 Chief Complaint: [Request for detox from alcohol and opiates] History of Present Illness: The patient is a 28 M [presents to the emergency department asking for detox for alcohol and opiates. Patient states that over the last 3 weeks he has been drinking about 1/5 of vodka daily. He last used around 1 AM. Patient also has been using opiates for the last year daily. He has been using fentanyl and heroin. Patient also has a slight cough that has had for about a week and a half. He denies fever. He denies exposure to coronavirus or recent travel. Patient complains of some slight jitteriness and mild nausea. His last detox/rehab was about 3 years ago.] Physical Examination: [HEENT-PERRLA, EOMI. Cranial nerves II through XII grossly intact. TMs clear. Mucous membranes moist. No adenopathy. Cardiovascular-regular rate and rhythm without murmur or ectopy Lungs-clear to auscultation, chest wall stable without crepitus or subcu emphysema Abdomen-normoactive bowel sounds, soft, nontender, no rebound or rigidity, no peritoneal signs. Extremities-intact ?4, normal range of motion, normal pulses, atraumatic] Test Results: [Urine toxicology screen ordered and pending] Emergency Department Course and Treatment: [] Treatment Plan: [Patient case was discussed with Dr. Piter To who is the hospitalist on-call and he will admit patient.] Disposition: [Admit] Impression: [Detox from alcohol and opiates Alcohol abuse with risk of alcohol withdrawal Opiate abuse] This note was generated with [employer] dictation software. It may contain incorrect words, spelling, and punctuation that were not noted in review of the chart prior to signing ED Disposition - Plan for ED Patient: Referrals: Care Physician,No Primary [Primary Care Provider] -
--- NOTE | 2019-07-14 13:32 | NURSING ---
MED SURG ETOH ABUSE, OPIATE ABUSE, DETOX RAMY
--- NOTE | 2019-07-14 13:39 | HP.PCM_ITS ---
Problem List (1) Opioid withdrawal syndrome Status: Acute History of Present Illness Date of Admission: 07/14/19 Chief Complaint: alcohol and opiate withdrawl The patient is a 28 year old M who presents today seeking treatment for alcohol and opiate withdrawal. Patient drinks 1/5 of vodka per day and injects roughly a gram of heroin and/or fentanyl per day. Last use was 12 and 14 hours ago respectively. Since then, patient has been having congestion, rhinorrhea, abdominal cramps, nausea, myalgias. Patient states that he wants to get back to his family and wants to undergo treatment. Patient last quit about 12 months ago and was clean for 10 months and then resume to using opiates and then start adding alcohol on top of that. He said he is never quit both of them simultaneously before. Patient also states that he has been having some upper respiratory type symptoms. Denies any fever. And that is having a cough but is nonproductive. [] Past Medical History Past Medical History (Chronic Problems): Chronic Problems Polysubstance (including opioids) dependence, daily use (Chronic) Heroin abuse (Chronic) Tobacco use (Chronic) Hepatitis C (Chronic) Allergies latex Allergy (Verified 07/14/19 12:42) Hives Penicillins [PCN] Allergy (Verified 07/14/19 12:42) Anaphylaxis venom-honey bee [bee venom (honey bee)] Allergy (Verified 07/14/19 12:42) Swelling Home Medications: Ambulatory Orders Medication Instructions Recorded NK 02/06/19 Surgical History: noncontributory, - - Cholecystectomy, R ORIF Clavicle, RUE ganglion cyst, Reconstruction LUE. Smoking Status: Current every day smoker Tobacco Use: Cigarettes, Chew - *Family History Maternal History Items: Diabetes, Heart Disease, Hypertension Paternal History Items: Diabetes, Heart Disease, Hypertension Sibling History Items: No pertinent history Review of Systems Constitutional: Denies: Anorexia, Chills, Fever, Night Sweats Eyes: Denies: Blurred vision, Double vision HEENT: Reports: Head Aches, Sinus Congestion. Denies: Sinus Drainage Cardiovascular: Denies: Chest Pain, Palpitations Respiratory: Reports: Cough. Denies: Shortness of Breath, Sputum production Gastrointestinal: Reports: Abdominal Pain, Nausea. Denies: Vomiting Genitourinary: Denies: Dysuria Musculoskeletal: Denies: Joint Pain, Joint Tenderness Skin: Denies: Rash, Wounds Neurological: Denies: Numbness, Tingling, Focal weakness Psychiatric: Denies: Anxiety, Depression Hematologic/ Lymphatic: Denies: Easy Bruising, Easy Bleeding, Hx of blood clot Comment: All review of systems were negative except as mentioned above in the history of present illness and the other review of systems. VTE Information - Inpt Only VTE Present on Admission: No VTE Pharm Prophylaxis ordered?: No Reason prophylaxis not ordered:: Treatment Not Indicated - Physical Exam Vitals/I&O's: Vital Signs Temp Pulse Resp BP Pulse Ox 36.8 C 105 H 16 156/89 H 99 07/14/19 12:41 07/14/19 12:41 07/14/19 12:41 07/14/19 12:41 07/14/19 12:41 Oxygen Delivery Method Room Air Weight: 72.575 kg Body Mass Index (BMI) 23.6 General: Alert, Cooperative, No apparent distress HEENT: Atraumatic, Normocephalic Oral: Moist Mucosa, No Gingival or Mucosal Lesions/ Ulcerations Neck: No Nodes, Trachea Midline Lungs: Clear to auscultation, Normal air movement, No rhonchi, No wheeze, No rales Cardiovascular: Regular rate, Regular Rhythm, Normal S1, Normal S2, No murmurs Abdomen: Bowel Sounds Present, Soft, Non Tender, Non-Distended, No Hepato- splenomegaly Extremities: No edema, No Calf Tenderness Skin: No rashes, No breakdown Musculoskeletal: No Tenderness to Palpation of Joints or Extremities, No Muscle Wasting Psych/Mental Status: Normal Affect, Agitated Assessment/Plan All Active Problems Opioid withdrawal syndrome (Acute) Transaminitis (Acute) 1. Acute opiate withdrawal: I feel most of his symptoms are prime more attributable to opiate withdrawal rather than alcohol withdrawal, least at this time. Plan is to initiate buprenorphine taper. Patient is open to returning to [facility] as he states that he had help with that when he saw them previously. Patient will have other agents to help other somatic complaints. Informed that he would not be receiving buprenorphine upon discharge from this hospitalization 2. Acute alcohol withdrawal: As above, cannot delineate the opiate versus alcohol withdrawal symptoms though I feel that most of his symptoms, now, are attributable to opiate withdrawal. Patient will be on phenobarbital taper. Thiamine and folate 3. Hepatitis C: Patient has shared needles in the past but none recently. States that he has been checked for HIV in the past but that is been negative. Patient states that he very seldomly reuses needles. Will check HIV but also hepatitis C viral load. And if elevated patient will need to follow-up with the appropriate specialist. 4. VTE prophylaxis: Low risk and not indicated. 5. Advanced care planning: Asked patient if he want CPR in the event of cardiac arrest. He stated that he would not. Stated that if it is his heart goes out than it is time to go. I did tell him that I would encourage him to be full CODE STATUS but he continue to insist on being DNR Comfort Care arrest. I told him that he is certainly able and willing to change his mind any time. Inpatient E&M: 44899 Init Hosp L2
[2019-07-14 13:43] VITALS: BP 156/98; PULSE 91; RESP 16; TEMP 36.6; O2SAT 100
--- NOTE | 2019-07-14 14:02 | CM.ED ---
Social Work Consult: Substance Abuse Informant: Self-Referral Patient left for acute unit prior to this social services being able to speak with patient. Per medical team patient being admitted for medical management of withdrawal symptoms. Telephone call to Christine at [facility], voicemail left that patient needs to be assessed. Updated Gael Valle social services on [facility] on above information. Dianne Alarcon [employer], [place]
--- NOTE | 2019-07-14 14:12 | NURSING ---
This nurse into room to start admission process. This nurse explained to patient that all of his belongings were to be locked in tote in room. Patient stated that he was keeping his cell phone. This nurse reminded patient of the Plan of Care Agreement for Addiction Medicine Program and that he signed form in ER and agreed to this. Pt stated that it says nothing about his cell phone. This nurse then stated that she would go print a copy for the patient for him to have. Pt grabbed his belonging and left. This nurse asked patient to sign AMA form, patient stated I don't have to sign anything. Pt left unit with all belongings.
--- NOTE | 2019-07-14 14:20 | CM.ED ---
Social Work Updated that patient left the hospital due to not wanting to following the treatment plan for medically assisted withdrawal management. Confirmed with nursing staff in ED that agreement for [facility] was read and gone over with patient and patient did verbalize understanding to this. Patient did sign the treatment plan/agreement while in ED. Telephone call to Christine King updated on above information. Dianne Alarcon MSW, NEAL
--- NOTE | 2019-07-14 14:24 | PCM.DC.SUM ---
Discharge Date and Diagnosis Date of Admission: 07/14/19 Date of Discharge: 07/14/19 - Primary Discharge Diagnosis opiate withdrawal alcohol withdrawal - Secondary Discharge Diagnosis Chronic Problems Polysubstance (including opioids) dependence, daily use (Chronic) Heroin abuse (Chronic) Tobacco use (Chronic) Hepatitis C (Chronic) Hospital Course and Treatment Operations: None Summary of Care Provided: The patient is a 28 year old M presents seeking treatment for alcohol and opiate withdrawal. Please see the history and physical for further details. Patient was told that he was given phenobarbital as well as buprenorphine. History is a patient at the floor, he was told that he is can have his belongings locked up and then stated that he was leaving and left AGAINST MEDICAL ADVICE. [] - Physical Exam Vitals/I&O's: Vital Signs Temp Pulse Resp BP Pulse Ox 36.6 C 91 16 156/98 H 100 07/14/19 13:43 07/14/19 13:43 07/14/19 13:43 07/14/19 13:43 07/14/19 13:43 Oxygen Delivery Method Room Air Weight: 72.575 kg Body Mass Index (BMI) 23.6 Home Medications: Medications to take at Discharge NK 02/06/19 Primary Care Physician: Care Physician,No Primary [Primary Care Provider] - Minutes spent on discharge:: 32 Medical Necessity - Tobacco Use Smoking Status: Current every day smoker Tobacco Use: Cigarettes, Chew Meaningful Use Info Meaningful Use Diagnoses (Choose all that apply): None applicable OBSV E&M: 18442 Observ/hosp same date L2
== END 2019-07-14 14:10 | disposition left against medical advice (07) | DRG 894 ==
LOC: ED 13:16 → MS3 14:14
PROVIDERS: Emergency Provider Emergency Medicine
DX: F11.23 Opioid dependence with withdrawal (principal); F10.239 Alcohol dependence with withdrawal, unspecified; B19.20 Unspecified viral hepatitis C without hepatic coma; F17.210 Nicotine dependence, cigarettes, uncomplicated; Z66 Do not resuscitate
CPT/HCPCS: 99285

== ENCOUNTER 2019-07-19 12:55 | Emergency (ER) | payer SELFPAY ==
[2019-07-19 12:55] VITALS: BP 160/87; PULSE 106; RESP 18; TEMP 36.4; O2SAT 96; BMI 23.6
--- NOTE | 2019-07-19 13:14 | ED.DCSUM_ITS ---
History of Present Illness Chief Complaint: Substance Abuse Detail of Chief Complaint: Opiates, methamphetamine and alcohol use Informant: Patient Onset: - - Patient has been using for years Context: Sudden Onset Timing: Continuous Quality: Patient is asking for help Location: Not applicable Current Severity: Moderate Maximum Severity: Moderate Worsened by: Homeless, and left AMA 07/14/2019 Relieved by: Nothing Associated Symptoms: No social support Narrative: Patient is 28-year-old male who has been homeless for the past 2 to 3 months. States he has not seen his 3 or 12-year-old child in 1 year. 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 He has no steady employment. He does admit to smoking and illicit drug use. He states he has been injecting for 4 years. He injected at 0400. He had knowledge that he was seen here at the hospital and had left. He left AGAINST MEDICAL ADVICE prior to going to the floor. Patient states he is homeless. He states he needs help. He is come to the realization if he does not get help he probably will . Prior similar symptoms: Yes Recent Illness/Hospitalization: Yes - Past Medical History (1) Hepatitis C Status: Chronic (2) Heroin abuse Status: Chronic (3) Polysubstance (including opioids) dependence, daily use Status: Chronic (4) Tobacco use Status: Chronic (5) Methamphetamine abuse Status: Suspected (6) Infection of clavicle Status: Inactive Past Medical History - Allergies and Home Meds Allergies/Adverse Reactions: Allergies latex Allergy (Verified 07/19/19 12:58) Hives Penicillins [PCN] Allergy (Verified 07/19/19 12:58) Anaphylaxis venom-honey bee [bee venom (honey bee)] Allergy (Verified 07/19/19 12:58) Swelling Primary Care Physician: Care Physician,No Primary [Primary Care Provider] - Prior records reviewed: Yes Surgical History: noncontributory, - - Cholecystectomy, R ORIF Clavicle, RUE ganglion cyst, Reconstruction LUE. Lives: Homeless Smoking Status: Current every day smoker Alcohol: Occasional Drugs: Heroin, - - Methamphetamine - Family History Maternal Family History: Reports: Diabetes, Heart Disease, Hypertension Paternal Family History: Reports: Diabetes, Heart Disease, Hypertension Sibling Family History: Reports: No pertinent history Review of Systems General: Reports: Malaise. Denies: Chills, Fever, Subjective, Sweats Eyes: Denies: Visual changes - bilaterally, Blurred Vision - bilaterally ENT: Denies: Bilateral ear pain, Rhinorrhea, Sore throat Cardiovascular: Denies: Chest pain, Palpitations Respiratory: Denies: Dyspnea, Cough, Sputum, Dyspnea on exertion Gastrointestinal: Denies: Abdominal pain, Nausea, Vomiting, Diarrhea Genitourinary: Denies: Dysuria, Hematuria, Frequency Musculoskeletal: Denies: Myalgias, Arthralgias, Neck pain, Back pain, Swelling, Extremity Pain Skin: Denies: Rash, Wounds Neurological: Denies: Headache, Weakness, Numbness Psych: Reports: Depression. Denies: Suicidal thoughts, Suicidal ideations Hematologic: Denies: Easy bruising, Easy bleeding Physical Exam Vital Signs/Narrative: Vital Signs Temp Pulse Resp BP Pulse Ox 07/19/19 12:55 97.6 F L 106 H 18 160/87 H 96 Inital Vital Signs reviewed: Yes General: Well nourished, Well developed, No Acute Distress Head: Normocephalic, Atraumatic Eyes: Perrl, EOMI ENT: Moist mucous membranes, No rhinorrhea Neck: Supple, Nontender Cardiovascular: Regular rate, Regular rhythm, No murmurs Respiratory: No distress, CTA bilaterally, Chest nontender Abdomen: Soft, Nontender, Nondistended, Normal bowel sounds Back: Nontender, Normal Inspection Extremities: Nontender, No edema, - - Has bruising secondary to injection left antecubital fossa. There is no erythema, warmth, induration or lymphangitis. There is no lymphadenopathy. Skin: Normal color, No rash Neurological: Alert, Oriented x3, Cranial nerves II-XII grossly intact, Normal Strength, Normal Sensation Psychological: Normal affect, Normal Mood Diagnostic/Tx/Re-eval - Medical Decision Making Since patient left AMA he is not a candidate for inpatient detox at the present time. [facility] was called and they take calls only Saturday through Saturday. Charge nurse is working on other options. I was informed there is no delinquency prevention social worker restrictive preparation operator. There are no resources presently to help patient will have him contact [facility] tomorrow. I ED Disposition - Plan for ED Patient: Disposition: Home or Assisted Living Diagnosis: Use of nonprescription opiate drugs Instructions: Opiate Abuse Referrals: Care Physician,No Primary [Primary Care Provider] - [facility] [STAFF PHYSICIAN] - 1 Day
--- NOTE | 2019-07-19 13:21 | NURSING ---
CALLED [facility], NO ONE AVAILABLE AFTER HOURS NO WORM FARMER OR CASE MANAGEMENT AVAILABLE
--- NOTE | 2019-07-19 14:52 | ED.RN ---
Pt refused to leave department at discharge stating he wanted to be admitted to detox. He was informed he was not being admitted to the program related to his recent history in the program. Pt was tearful and stated he was leaving the hospital without being admitted. He was escorted out of department by HRO.
== END 2019-07-19 14:45 | disposition home or self-care (01) ==
PROVIDERS: Emergency Provider Emergency Medicine
DX: F11.90 Opioid use, unspecified, uncomplicated (principal); F15.90 Other stimulant use, unspecified, uncomplicated; F10.99 Alcohol use, unspecified with unspecified alcohol-induced disorder; Z86.19 Personal history of other infectious and parasitic diseases; Z59.0 Homelessness; F17.200 Nicotine dependence, unspecified, uncomplicated
CPT/HCPCS: 99281; 99282

== ENCOUNTER 2019-07-28 21:33 | Emergency (ER) | payer SELFPAY ==
[2019-07-28 21:36] VITALS: BP 179/111; PULSE 108; RESP 16; TEMP 35.6; O2SAT 96; BMI 25.4
[2019-07-28 22:40] VITALS: RESP 16
[2019-07-28 22:47] LABS: Absolute Lymphocyte Count 2.01 X10^3/uL (0.83-4.51); Absolute Neutrophil Count 5.1 X10^3/uL (2.0-7.7); Basophil# 0.06 X10^3/uL; Basophil% 0.8 % (0-1); Eosinophils% 2.5 % (0-5); Hematocrit 41.6 % (40-54); Hemoglobin 13.8 g/dL (13.0-16.5); Lymphocyte # 2.01 X10^3/ul (4.0); Lymphocyte % 25.2 % (19-41); Mean Corp Hgb Conc 33.2 g/dL (32-36); Mean Corpuscular Hgb 29.7 pg (27.0-32.0); Mean Corpuscular Volume 89.5 fL (80-94); Mean Platelet Vol. 8.7 fl (6.2-12.0); Monocyte# 0.58 X10^3/uL; Monocyte% 7.3 % (0-10); NRBC Flagged by Analyzer 0 % (0-5); Neutrophil # 5.09 X10^3/uL (2.7-7.7); Neutrophil % 63.8 % (47-70); Platelet Count 234 K/mm3 (150-450); RBC Distribution Width SD 42.5 fl (35.1-43.9); Red Blood Count 4.65 M/mm3 (4.6-6.2)
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
[2019-07-28 23:06] LABS: Anion Gap 5 (5-15); BUN 21 mg/dL (7-18); BUN/Creat Ratio 27.2 RATIO (10-20); Calcium,Total 9.5 mg/dL (8.5-10.1); Chloride 101 mmol/L (98-107); Creatinine, Serum 0.77 mg/dL (0.70-1.30); EST Glomerular Filtration Rate 127 mL/min (>60); Est Glom Filt Rate - Afr Amer 153 mL/min (>60); Estimated Creatinine Clearance 142.83 ml/min; Glucose 107 mg/dL (74-106); Potassium 4.3 mmol/L (3.5-5.1); Sodium Level 138 mmol/L (136-145)
--- NOTE | 2019-07-28 23:14 | ED.RN ---
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
--- NOTE | 2019-07-28 23:21 | ED.DCSUM_ITS ---
History of Present Illness Chief Complaint: Substance Abuse Detail of Chief Complaint: Substance abuse/dependency and suicidal ideation Informant: Patient Onset: Days Conflict: Family, Financial Timing: - - Uncertain Current Severity: Moderate Maximum Severity: Severe Worsened by: Situational factors Relieved by: Nothing Associated Symptoms: Depressed, Change in Eating, Change in sleeping, Decreased Interest, Guilt, Suicidal Thoughts, Angry. Negative for: Decreased Concentration, Hopelessness, Increased activity, Pressured Speech, Agitated, Hostile, Threatening, Confusion, Paranoia, Visual Hallucinations, Auditory Hallucinations Specific plan (suicidal thought): No specific plan Narrative: Patient is a 28-year-old male who has history of polysubstance abuse. He was seen earlier this month and admitted for detox. He left after he was seen by the hospitalist. He was seen by me on July 18 and left because there was no options for outpatient treatment. He was referred to [facility] and they have been working with him. Multiple attempts have been made to place him. He apparently left prior to placement at [facility]. He presents now tearful, depressed, sad and states he will harm himself if he does not get help. He does have 2 children. Is not seeing this children some time. He is not employed presently. He does admit to IV drug use i.e. opiates and methamphetamine. He has no signs or symptoms of infection. Prior similar symptoms: Yes Recent Illness/Hospitalization: Yes - Past Medical History (1) Hepatitis C Status: Chronic (2) Heroin abuse Status: Chronic (3) Polysubstance (including opioids) dependence, daily use Status: Chronic (4) Tobacco use Status: Chronic (5) Methamphetamine abuse Status: Suspected (6) Infection of clavicle Status: Inactive (7) Wound infection complicating hardware Status: Inactive Past Medical History - Allergies and Home Meds Allergies/Adverse Reactions: Allergies latex Allergy (Verified 07/28/19 21:41) Hives Penicillins [PCN] Allergy (Verified 07/28/19 21:41) Anaphylaxis venom-honey bee [bee venom (honey bee)] Allergy (Verified 07/28/19 21:41) Swelling Primary Care Physician: Care Physician,No Primary [Primary Care Provider] - Prior records reviewed: Yes Surgical History: noncontributory, - - Cholecystectomy, R ORIF Clavicle, RUE ganglion cyst, Reconstruction LUE. Lives: Alone Smoking Status: Current some day smoker Alcohol: Occasional Drugs: Heroin, - - Amphetamine - Family History Maternal Family History: Reports: Diabetes, Heart Disease, Hypertension Paternal Family History: Reports: Diabetes, Heart Disease, Hypertension Sibling Family History: Reports: No pertinent history Review of Systems General: Denies: Chills, Fever, Malaise, Sweats Eyes: Denies: Visual changes - bilaterally, Blurred Vision - bilaterally ENT: Denies: Rhinorrhea, Sore throat Cardiovascular: Denies: Chest pain, Palpitations Respiratory: Denies: Dyspnea, Cough, Sputum, Dyspnea on exertion Gastrointestinal: Denies: Abdominal pain, Nausea, Vomiting, Diarrhea Musculoskeletal: Denies: Myalgias, Arthralgias, Neck pain, Back pain, Extremity Pain Skin: Denies: Rash, Wounds Neurological: Denies: Headache, Weakness, Numbness Psych: Reports: Depression, Anxiety, Suicidal thoughts, Suicidal ideations Endocrine: Denies: Polyuria, Polydipsia Hematologic: Denies: Easy bruising, Easy bleeding Physical Exam Vital Signs/Narrative: Vital Signs Temp Pulse Resp BP Pulse Ox 07/28/19 22:40 16 07/28/19 21:36 96.1 F L 108 H 16 179/111 H 96 Inital Vital Signs reviewed: Yes General: Well nourished, Well developed Head: Normocephalic, Atraumatic Eyes: Perrl, EOMI ENT: Moist mucous membranes, No rhinorrhea Neck: Supple, Nontender Cardiovascular: Regular rate, Regular rhythm, No murmurs Respiratory: No distress, CTA bilaterally, Chest nontender Abdomen: Soft, Nontender, Nondistended, Normal bowel sounds Back: Nontender, Normal Inspection Extremities: Nontender, No Edema Skin: Normal color, No rash Neurological: Alert, Oriented x3, Cranial nerves II-XII grossly intact, Normal Strength, Normal Sensation Psych: Depressed, Irritable, Labile, Poverty of Speech, Suicidal thoughts, Limited Insight, Poor Judgement. Negative for: Normal Speech Pattern, Logical sequential goal directed thoughts, No suicidal or homicidal ideation, Normal Stable Appropriate Affect, Good Insight, Good Judgement, Normal Appearance, Homicidal thoughts, Hallucinations, Delusions, Paranoid Ideation Diagnostic/Tx/Re-eval Laboratory Results 07/28/19 07/28/19 07/28/19 22:40 22:40 22:40 WBC 8.0 RBC 4.65 Hgb 13.8 Hct 41.6 MCV 89.5 MCH 29.7 MCHC 33.2 RDW Std Deviation 42.5 RDW Coeff of Vanessa 13.0 Plt Count 234 MPV 8.7 Immature Gran % (Auto) 0.400 Neut % (Auto) 63.8 Lymph % (Auto) 25.2 [place] % (Auto) 7.3 Eos % (Auto) 2.5 Baso % (Auto) 0.8 Absolute Neuts (auto) 5.1 Absolute Lymphs (auto) 2.01 Nucleated RBC % 0 Sodium 138 Potassium 4.3 Chloride 101 Carbon Dioxide 32.0 Anion Gap 5 BUN 21 H Creatinine 0.77 Estim Creat Clear Calc 142.83 Est GFR (MDRD) Af Amer 153 Est GFR (MDRD) Non-Af 127 BUN/Creatinine Ratio 27.2 H Glucose 107 H Calcium 9.5 Urine Opiates Screen Urine Methadone Screen Ur Barbiturates Screen Ur Phencyclidine Scrn Ur Amphetamines Screen U Methamphetamin-MDMA U Benzodiazepines Scrn Urine Cocaine Screen U Cannabinoids Screen Ur Drug Screen Comment Ethyl Alcohol 3.0 07/28/19 23:10 WBC RBC Hgb Hct MCV MCH MCHC RDW Std Deviation RDW Coeff of Vanessa Plt Count MPV Immature Gran % (Auto) Neut % (Auto) Lymph % (Auto) [place] % (Auto) Eos % (Auto) Baso % (Auto) Absolute Neuts (auto) Absolute Lymphs (auto) Nucleated RBC % Sodium Potassium Chloride Carbon Dioxide Anion Gap BUN Creatinine Estim Creat Clear Calc Est GFR (MDRD) Af Amer Est GFR (MDRD) Non-Af BUN/Creatinine Ratio Glucose Calcium Urine Opiates Screen NEGATIVE Urine Methadone Screen NEGATIVE Ur Barbiturates Screen NEGATIVE Ur Phencyclidine Scrn NEGATIVE Ur Amphetamines Screen POSITIVE H U Methamphetamin-MDMA NEGATIVE U Benzodiazepines Scrn NEGATIVE Urine Cocaine Screen NEGATIVE U Cannabinoids Screen NEGATIVE Ur Drug Screen Comment Ethyl Alcohol [place] tests are remarkable for positive amphetamine screen. EKG was done 1 week ago and reason why it was not repeated. EKG was unremarkable at that time. Restraints applied: No Patient was seen by case management. They believe he would benefit from in hospital psychiatric treatment. In light of this appropriate tests were ordered to facilitate placement in psychiatric facility. The social security specialist on for the counseling center/crisis center is presently interviewing patient by phone because of the pandemic. Disposition to be made by night physician once the compressed gas plant worker has completed his or her evaluation of patient. ED Disposition - Plan for ED Patient: Diagnosis: Depression with suicidal ideation, Drug addiction Referrals: Care Physician,No Primary [Primary Care Provider] -
[2019-07-28 23:37] LABS: Amphetamine Urine VISTA POSITIVE (<1000 ng/mL); Barbiturate Urine VISTA NEGATIVE (< 200 ng/mL); Benzodiazepine Urine VISTA NEGATIVE (< 200 ng/mL); Cocaine Urine VISTA NEGATIVE (< 300 ng/mL); Ecstacy Urine VISTA NEGATIVE (< 500 ng/mL); Methadone Urine VISTA NEGATIVE (< 300 ng/mL); PCP Urine VISTA NEGATIVE (< 25 ng/mL); THC Urine VISTA NEGATIVE (< 50 ng/mL); Vista UDS pH Range 7
[2019-07-29] VITALS (10 sets, daily range): BP systolic 133–164; BP diastolic 74–132; PULSE 14–110; RESP 16–18; TEMP 37; O2SAT 98–100
[2019-07-29 05:54] LABS: AST(SGOT) 144 U/L (15-37); Alanine Aminotransfer ALT/SGPT 121 U/L (16-61); Albumin, Serum 3.6 g/dL (3.2-5.0); Alkaline Phosphatase 129 U/L (45-117); Bilirubin, Direct 0.12 mg/dL (0.00-0.30); Globulin 3.5 g/dL (2.2-4.2); Protein, Total 7.1 g/dL (6.4-8.2)
[2019-07-29] MEDS: Clonidine HCl 0.1 MG, Clonidine HCl 0.2 MG 0.3 MG PO (05:56)
[2019-07-29] MEDS: Ondansetron ODT 4 MG Tablet PO (05:57)
--- NOTE | 2019-07-29 05:57 | EKG12_ITS ---
Test Reason : MHC Blood Pressure : / mmHG Vent. Rate : 080 BPM Atrial Rate : 080 BPM P-R Int : 158 ms QRS Dur : 110 ms QT Int : 364 ms P-R-T Axes : 064 051 058 degrees QTc Int : 419 ms Normal sinus rhythm Normal ECG Confirmed by DANNY MEZA, MATHEW ([id number]), image editor CHUY JAMES ([id number]) on 08/04/2019 2:01:33 PM Referred By: DARRELL Confirmed By:EILEEN DELGADO MD
--- NOTE | 2019-07-29 06:15 | ED.RN ---
ADDITIONAL LABS AND TESTING REQUESTED BY [facility] WAS SENT AND RECEIVED VIA FAX
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
[2019-07-29] MEDS: Ziprasidone IM 20 MG/ML VIAL IM (07:22)
--- NOTE | 2019-07-29 07:59 | ED.RN ---
PER MARIA LUISA THE DOCTOR IS REVIEWING HIS CHART CURRENTLY AND I WILL CALL YOU.
--- NOTE | 2019-07-29 10:11 | CM.ED ---
Social Work Florinda from Crisis informing this social and political studies professor that [facility] is declining patient due to stating that patient needs to go through detox. This social and political studies professor updating Florinda on social work assessment and that patient has been admitted at [facility] multiple times in the recent past and walked out prior to finishing the detox program and also [facility] and patient walked out on prior to a determination, but then [facility] called patient and informed patient that [facility] would not accept patient at this time. Florinda was not aware of above information and plans to call [facility] back. Updated medical team. Dianne Alarcon MSW, NEAL
--- NOTE | 2019-07-29 11:25 | CM.ED ---
Social Work Telephone call from Florinda at crisis. Patient is currently on waiting list at [facility]. Dianne DANIEL, NEAL
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
--- NOTE | 2019-07-29 16:00 | CM.ED ---
Social Work Telephone call to Florinda Santiago. Florinda has not received an update on patient case at this time. Patient continues to be on waiting list. Dianne DANIEL, NEAL
--- NOTE | 2019-07-29 18:39 | CM.ED ---
Social Work Telephone call to Jack, Mark. Patient continues to be 5th on list at [facility]. Updated medical team. Dianne Alarcon TRANSFER CAR OPERATOR, NELA
[2019-07-29] MEDS: MELATONIN 3 MG TABLET PO (22:49)
[2019-07-30] VITALS (14 sets, daily range): BP systolic 146–168; BP diastolic 90–94; PULSE 88–108; RESP 14–16; TEMP 37.2; O2SAT 97–99
[2019-07-30] MEDS: MELATONIN 3 MG TABLET PO (00:25)
--- NOTE | 2019-07-30 09:21 | ED.RN ---
SEE DOWNTIME DOCUMENTATION FROM [id number]
--- NOTE | 2019-07-30 09:29 | ED.RN ---
LUKAS WITH CRISIS IS CALLING [facility] TO FIND OUT IF THEY HAVE ANY UPDATED INFORMATION ON A BED FOR THE PT
[2019-07-30] MEDS: LORazepam 1 MG Tablet PO (09:57)
--- NOTE | 2019-07-30 15:00 | CM.ED ---
SOCIAL WORK RECEIVED CALL FROM DIANNE WITH [facility]. PER DIANNE, UNABLE TO FIND PLACEMENT FOR PATIENT. AWAITING BED AT [facility] PER CRISIS. Oliva RAUSCH, RAISER HELPER, MORTGAGE OR LOAN UNDERWRITER.
--- NOTE | 2019-07-30 17:24 | ED.RN ---
PER TOY WITH CRISIS; [facility] IS CHANGING THE WAY THEY ARE ADMITTING PTS BECAUSE OF COVID 19. THEY ARE ONLY ACCEPTING ONE PT A DAY, SO HE WILL BE HERE UNTIL AT LEAST SATURDAY
[2019-07-30] MEDS: Ziprasidone IM 20 MG/ML VIAL IM (18:53)
[2019-07-31] VITALS (15 sets, daily range): BP systolic 136–156; BP diastolic 60–108; PULSE 72–87; RESP 14–19; O2SAT 95–99
--- NOTE | 2019-07-31 00:08 | ED.RN ---
MELATONIN NOT GIVEN PT HAS BEEN SLEEPING IN BED.
[2019-07-31] MEDS: MELATONIN 3 MG TABLET PO ×2 (01:32→19:38)
--- NOTE | 2019-07-31 05:07 | ED.RN ---
PT REMAINS SLEEPING,SITTER AT THE BEDSIDE.
[2019-07-31] MEDS: Ziprasidone IM 20 MG/ML VIAL IM (11:18)
--- NOTE | 2019-07-31 11:49 | CM.ED ---
Social Work Spoke with Shanti at the [facility], Shanti speaking with the director at [facility] to assist in placement due to the extended period of waiting on bed. Dianne DANIEL, NEAL
[2019-07-31] MEDS: DiphenhydrAMINE 25 MG Capsule 50 MG PO (13:57)
[2019-07-31] MEDS: LORazepam 1 MG Tablet PO (13:57)
--- NOTE | 2019-07-31 21:17 | CM.ED ---
Social Work Telephone call from Gisela bailon. Gisela asking to speak with patient. Gisela speaking with patient and then speaking with this home health care social worker. Gisela stating that patient continues to be on list at [facility]. Updated medical team. Dianne DANIEL, NEAL
[2019-08-01] VITALS (10 sets, daily range): BP systolic 124–150; BP diastolic 64–78; PULSE 75–81; RESP 14–18; O2SAT 96–98
[2019-08-01] MEDS: DiphenhydrAMINE 25 MG Capsule 50 MG PO (02:01)
[2019-08-01] MEDS: MELATONIN 3 MG TABLET PO (02:01)
[2019-08-01] MEDS: LORazepam 1 MG Tablet PO (05:40)
--- NOTE | 2019-08-01 08:46 | ED.RN ---
ADRIEL WITH CRISIS ALLA CALL [facility] TO SEE ABOUT THEIR BED ASSIGNMENTS AFTER SHIFT CHANGE
[2019-08-01] MEDS: LORazepam 0.5 MG Tablet PO (14:22)
--- NOTE | 2019-08-01 14:51 | CM.ED ---
SOCIAL WORK UPDATED BY AUDIO PRODUCTION INSTRUCTORADRIEL- PATIENT TO BE SAFETY PLANNED HOME WITH FOLLOW UP FROM [facility] AND THE [facility]SELING [facility]. STAFF UPDATED. Oliva RAUSCH, LARD RENDERER, [employer] [facility].
--- NOTE | 2019-08-01 16:17 | ED.RN ---
Discussed discharge paperwork with pt, pt gives verbal understanding of paperwork, denies any questions. Safety plan discussed over the phone with reinforcing steel worker, then handed to pt by karen social work coordinator.
== END 2019-08-01 16:22 | disposition home or self-care (01) ==
PROVIDERS: Emergency Medicine; Emergency Provider Emergency Medicine
DX: R45.851 Suicidal ideations (principal); F19.10 Other psychoactive substance abuse, uncomplicated; F32.9 Major depressive disorder, single episode, unspecified; F17.200 Nicotine dependence, unspecified, uncomplicated
CPT/HCPCS: 80048; 80076; 80307; 80320; 85025; 93005; 96372; 99285; G0480; J3486

== ENCOUNTER 2019-08-09 22:20 | Emergency (ER) | payer SELFPAY ==
[2019-08-09 22:21] VITALS: BP 166/111; PULSE 113; RESP 18; TEMP 36.1; O2SAT 99; BMI 24.3
--- NOTE | 2019-08-09 22:44 | ED.VIS.UPPEX ---
History of Present Illness Chief Complaint: Upper Extremity Injury Informant: Patient Onset: Yesterday Context: Gradual Onset Timing: Continuous Quality of Pain: - - sore and itchy Location: left wrist/hand Current Severity: Moderate Maximum Severity: Moderate Worsened by: palpation Relieved by: leaving alone Associated Symptoms: Negative for: Parasthesia, Weakness, Loss of Funtion Narrative: IV drug abuser with history of hepatitis C he states that he is right-hand dominant and only injects at the left antecubital fossa and did not inject in the area of interest, developed redness that is painful and itchy at the dorsum of his left wrist, more ulnar aspect, also involving the dorsum of the hand just proximal to the affected area of the wrist. He denies any fevers or systemic symptoms. Denies any obvious etiology of this, like something touching the area. He has an unknown allergy to penicillins that was when I was young. He had MRSA abscess in the past. - Past Medical History (1) Hepatitis C Status: Chronic (2) Heroin abuse Status: Chronic (3) Polysubstance (including opioids) dependence, daily use Status: Chronic (4) Methamphetamine abuse Status: Chronic Past Medical History - Allergies and Home Meds Allergies/Adverse Reactions: Allergies latex Allergy (Verified 08/09/19 22:23) Hives Penicillins [PCN] Allergy (Verified 08/09/19 22:23) Anaphylaxis venom-honey bee [bee venom (honey bee)] Allergy (Verified 08/09/19 22:23) Swelling Primary Care Physician: Care Physician,No Primary [Primary Care Provider] - Surgical History: noncontributory, - - Cholecystectomy, R ORIF Clavicle, RUE ganglion cyst, Reconstruction LUE. Smoking Status: Current some day smoker Drugs: Heroin - Family History Maternal Family History: Reports: Diabetes, Heart Disease, Hypertension Paternal Family History: Reports: Diabetes, Heart Disease, Hypertension Sibling Family History: Reports: No pertinent history Review of Systems General: Denies: Chills, Fever, Sweats Musculoskeletal: Reports: Extremity Pain Skin: Reports: Rash. Denies: Abscess Neurological: Denies: Headache, Weakness, Numbness Physical Exam Vital Signs/Narrative: Vital Signs Temp Pulse Resp BP Pulse Ox 08/09/19 22:21 96.9 F L 113 H 18 166/111 H 99 General: Well nourished, Well developed, - - nad Head: Normocephalic, Atraumatic Extremeties: Full range of motion of the left wrist and all digits of the hand. There is no erythema over the finger joints or MCP J's. Skin: Rash - Erythema to the dorsum of the left wrist as per HPI. There is a tattoo over this area it is not new. There is one point in the middle of the tattoo, the center of the erythema, that is the most tender. The other areas of erythema are very minimally tender. There is no induration, there is no palpable early abscess underneath of this. It is mildly swollen, and there is no fluctuance. There is no lymphangitis. There is no epitrochlear lymphadenopathy. Neurological: Alert, Oriented x3, Cranial nerves II-XII grossly intact, Normal Strength, Normal Sensation, Normal Gait Psychological: Normal affect, Normal Mood Diagnostic/Tx/Re-eval - Medical Decision Making I advised patient that the possibilities are a strep cellulitis or an early MRSA infection although I can palpate nothing underneath to suggest this is definitely an early abscess. Attempting I&D would be pointless given the exam at this time. The erythema is approximately 6-8 cm in length, so I think strep is more likely than staph if this is infectious. However given his history of MRSA, I think it would be chen to cover for both. Therefore as I advised the patient, I recommend taking and finishing 10-day prescriptions for both cephalexin and Bactrim. He tells me I am broke. Therefore I offered an injection of Ancef, and a good Rx card to help him cover these inexpensive antibiotics. For unknown reasons, prior to receiving any medications here in the ER, the patient left prior to treatment or discharge. ED Disposition - Plan for ED Patient: Disposition: Home or Assisted Living Diagnosis: Cellulitis of left wrist Instructions: ED Cellulitis Prescriptions: Smz/Tmp Ds [Bactrim Ds] 1 tab PO BID #20 tab Prescription Printed Cephalexin [Keflex] 500 mg PO Q6 #40 cap Prescription Printed Referrals: Susan Sousa [NON-STAFF] - 3-5 Days if not improving (or may return to ER)
--- NOTE | 2019-08-09 22:57 | ED.RN ---
PT WALKED OUT, AMA, TOLD THE ETIQUETTE COACH HE WAS LEAVING. WAS SEEN BY THE DR. DID NOT GET ANY MEDS.
== END 2019-08-09 22:59 | disposition home or self-care (01) ==
LOC: ED 22:52
PROVIDERS: Emergency Provider Emergency Medicine
DX: L03.114 Cellulitis of left upper limb (principal); F15.10 Other stimulant abuse, uncomplicated; B19.20 Unspecified viral hepatitis C without hepatic coma; Z86.14 Personal history of Methicillin resistant Staphylococcus aureus infection; F17.200 Nicotine dependence, unspecified, uncomplicated
CPT/HCPCS: 99281

== ENCOUNTER 2019-09-17 02:22 | Emergency (ER) | payer SELFPAY ==
[2019-09-17 02:23] VITALS: BP 154/107; PULSE 95; RESP 16; TEMP 36.9; O2SAT 100; BMI 25.7
--- NOTE | 2019-09-17 02:42 | ED.VIS.EYE ---
History of Present Illness Chief Complaint: Eye Problem Informant: Patient Location: Left Eye Onset: Days - 2 Context: Gradual Onset Timing: Continuous Current Severity: Moderate Maximum Severity: Moderate Worsened by: nothing Relieved by: nothing Associated Symptoms - Eyes: Drainage, Eyelid swelling, Redness Visual Changes: left: Blurred vision - only when watering History of injury: No Visual correction: None Narrative: No URI symptoms or cold symptoms. He has been painting a house for the last couple weeks, states he had no pain to her chemical splash into his eyes. The right eye is unaffected. He is healthy otherwise. Does not wear glasses or contacts. Does not have foreign body sensation. Sometimes discharge is thick sometimes it is watery. - Past Medical History (1) Hepatitis C Status: Chronic (2) Heroin abuse Status: Chronic (3) Methamphetamine abuse Status: Chronic (4) Polysubstance (including opioids) dependence, daily use Status: Chronic Past Medical History - Allergies and Home Meds Allergies/Adverse Reactions: Allergies latex Allergy (Verified 08/09/19 22:23) Hives Penicillins [PCN] Allergy (Verified 08/09/19 22:23) Anaphylaxis venom-honey bee [bee venom (honey bee)] Allergy (Verified 08/09/19 22:23) Swelling Primary Care Physician: Care Physician,No Primary [Primary Care Provider] - Surgical History: noncontributory, - - Cholecystectomy, R ORIF Clavicle, RUE ganglion cyst, Reconstruction LUE. Smoking Status: Current every day smoker - Family History Maternal Family History: Reports: Diabetes, Heart Disease, Hypertension Paternal Family History: Reports: Diabetes, Heart Disease, Hypertension Sibling Family History: Reports: No pertinent history Review of Systems General: Denies: Chills, Fever, Sweats Eyes: Reports: - - Left eye redness, swelling, discharge. See HPI. ENT: Denies: Bilateral ear pain, Rhinorrhea, Sore throat Respiratory: Denies: Cough Skin: Denies: Rash, Wounds Physical Exam Eyelid: Left eyelid everted, No foreign body, Edema to left eyelid - Diffuse without tenderness; no external cellulitis Left Conjunctiva/Sclera: No foreign body, Chemosis - Mild, Diffuse focal injection - Diffuse injection both bulbar and palpebral, - - Watery, without purulent exudate Left Cornea: Normal inspection - Grossly, No foreign body Extraocular Motion: Normal exam, No pain, No palsy, No nystagmus Pupils: Normal accomodation, PERRL Vital Signs/Narrative: Vital Signs Temp Pulse Resp BP Pulse Ox 09/17/19 02:23 98.5 F 95 16 154/107 H 100 General: Well nourished, Well developed Head: Normocephalic, Atraumatic Skin: Normal color, No rash, No Trauma Neurological: Alert, Oriented x3, Cranial nerves II-XII grossly intact, Normal Strength, Normal Sensation, Normal Gait Psychological: Normal affect, Normal Mood Diagnostic/Tx/Re-eval - Medical Decision Making I discussed with patient that we would be getting his visual acuity prior to assuming that this is conjunctivitis and giving him antibiotic ointment. However, less than 10 minutes after that, the patient was tired of waiting and eloped, according to staff. Physician: Elopement ED Disposition - Plan for ED Patient: Diagnosis: Conjunctivitis, left eye
--- OUTSIDE RECORDS SUMMARY | 2020-02-09 15:09 | XMS RPT_ITS | CCD ---
:1990 External Reference #:[id number] Author Organization [facility] Care Team Providers Name Role Phone ALANNALISA, R Unavailable Unavailable PHYSICIAN Unavailable Unavailable Annie DIMAS Unavailable Unavailable Kim Dooley Unavailable Curtis Gilman Unavailable Unavailable Андрей Unavailable Unavailable PROVIDER Unavailable Unavailable No Unavailable Unavailable Kim Dooley Unavailable Allergies Reported Allergen Reaction(s) Severity Date of Onset Location Bee anaphylaxis Critical, Critical 09-13-2016 - [facility] (1 4830) penicillin anaphylaxis Critical, Critical 09-13-2016 [facility] (5 8168) Problems Active Problems Category Problem Name Status Date Location Fracture of upper limb Displaced fracture of Active [address] [place] [address] shaft of right Sports Medici ne and clavicle, initial Orthopaedi cs (79050) encounter for closed fracture Hepatitis Unspecified viral Active 11-12-2017 - [facility] hepatitis C without (36234) hepatic coma Sprains and strains Ulnar collateral Active 11-12-2017 - [facility] ligament sprain of (83873) left elbow, initial encounter Substance-related Nicotine dependence, Active 11-12-2017 - [facility] disorders unspecified, (28033) uncomplicated Unclassified Acquired absence of Active 11-12-2017 - [facility] other specified parts (27038 ) of digestive tract Unclassified Unknown / UNK(Unknown) Active 10-24-[address] - [facility] [place] [place] ([address]45) Past or Other Problems Category Problem Name Status Date Location Unclassified RIGHT CLAVICLE 11-13-[address] - [facility] BREAK,WOUND CARE,WOUND (0000 0) VAC,MRSA Unclassified POST SURGICAL 10-24-2016 - [facility] INFECTION/FRACTURE OF (53874 ) CLAVICLE,... Results Result Name Value Range Unit Interpretation Flag Date [facility] 2019[facility] CNPN Telephone (UCWSTR) Normal 12-29-2019 [facility] MARIELAAMOSENSLINDSAY ([id number]) 1990 [facility] Date Time Provider Department (16253) 12/29/19 LINETTE BRITO) [facility] During your visit today, we recorded the following informati on about you: Noelle French Ma 12/29/2019 11:34 AM Signed ----- Message from Linette Brito (Pa) sent at 12/29/2019 11:30 A M EDT ----- Let patient know syphilis testing negative. Noelle French Ma 12/29/2019 11:35 AM Signed Patient given results and verbalized understanding of instru ctions given.; Noelle Stephenson RN, RN 12/29/2019 12:56 PM Signed Patient notified of results and provider's instructions. P atient verbalizes understanding. Jessica Stephenson RN Allergies As of Date: 12/29/2019 Noted Allergy Reaction LATEX 11/18/2017 4 - Hives PENICILLINS 11/11/2017 16 - Unknown VENOM-HONEY BEE 07/13/2016 7 - Swelling Date Reviewed: 12/28/2019 Reviewed by: Danica Ferrari Ma - Fully Assessed Reason for Visit: Results [95] Problem List As Of Date 12/29/2019 Noted Resolved Depressive disorder [F32.9] 08/30/2015 Anxiety disorder [F41.9] 08/30/2015 Daytime somnolence [R40.0] 08/30/2015 Hepatitis C virus infection without hepatic com*08/30/2015 Opioid dependence in remission (HCC) [F11.21] 08/30/2015 Encounter Status:Closed by JESSICA STEPHENSON on 12/29/19 syphilis ttl w/reflx on 2019-12-28 Syphilis Interp Cannot exclude recent Normal [facility] Treponemal infection if [place] (42585) specimen collected within 7 to 10 days after appearance of suspect lesions or 2 to 3 weeks after an exposure. Clinical correlation is required. Comment: Performed By: #### SYPHTX ## ## [facility] [address] [place], [place] [address] Syphilis Screen Non Reactive Non Reactive Normal 12-28-19 [facility] [place] (65139) Comment: Performed By: #### SYPHTX ## ## [facility] [address] [place], [place] [address] progress on 2019-11 PROGRESS HNO ID: [id number] Normal 12-28-2019 [place] Author: Tristan Zhang [facility] Service: ? [place] Author Type: Physician ([id number]) Type: Progress Notes Filed: 12/28/2019 10:05 AM Note Text: Patient presents with: Rash: MARÍA hands x 2 days HPI: Rash: Location: Worst on the left palm, also between the right fin gers, few scattered spots on body, lower legs, feet. Duration: 2 days Pruritis: Yes Pain: No Change: NO Bleeding/ulceration/blister/pustule: Red bumps Contacts with rash: No Exposure: No new soaps, detergents, fabric softeners, lotion s. 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 Mayte nge in medications: No. Recent illness: No; denies fever, malaise, or sore throat. Treatment: None. PAST MEDICAL HISTORY Diagnosis Date - Anxiety disorder 08/30/2015 - Depressive disorder 08/30/2015 - Hepatitis C virus infection without hepatic coma 08/30/2015 - Opioid dependence in remission (HCC) 08/30/2015 10 years since 2005 - Renal calculi MEDICATIONS: No prescriptions on file. ALLERGIES: ALLERGIES Allergen Reactions - Latex Hives - Penicillins Unknown - Venom-Honey Bee Swelling VITALS: BP 136/86 Pulse 73 Temp 36.5 ?C (97.7 ?F) (Left Tympanic ) Resp 16 Wt 84.4 kg (186 lb) SpO2 97% BMI 28.07 kg/m? PHYSICAL EXAM: GEN: pleasant, no acute distress, alert SKIN: Left palm has deep erythematous 2-3mm papular rash con centrated over the thenar eminence, potentially evolving into vesicles . There are a few tiny erythematous spots on the right hand interdigital s kin, dorsal and lateral right foot, and lower leg. ASSESSMENT/PLAN: 1. Rash of hands - ICD9: 782.1, ICD10: R21 (primary diagnosi s) Few rashes erupt on the palms and feet. Discussed hand foot and mouth disease and methods to reduce spread. Differential also incl udes contact dermatitis, dyshidrotic eczema, syphilis, and id reaction. - SYPHILIS TOTAL W/REFLEX 2. History of hepatitis - ICD9: V12.09, ICD10: Z86.19 Type not specified. Reports infection resolved without treat ment. HIV testing has been negative. With the same partner for 2 years . - SYPHILIS TOTAL W/REFLEX 3. Genital warts - ICD9: 078.11, ICD10: A63.0 Requests help with treatment for genital warts. He has no PC P. - CONSULT TO UROLOGY Tristan Zhang MD cnov on 2019-12-28 CNOV Office Visit (UCWSTR) Normal 12-28-[address] [place] [address] LINDSAY Malagon ([id number]) 1990 [facility] Date Time Provider Department ([id number]) 12/28/19 9:30 AM TRISTAN ZHANG [facility] During your visit today, we recorded the following informati on about you: Temperature Pulse Respiration Blood pressure 97.7 degrees 73/minute 16/minute 136/86 Weight 84.4 kg Tristan Zhang MD 12/28/2019 10:05 AM Signed Patient presents with: Rash: MARÍA hands x 2 days HPI: Rash: Location: Worst on the left palm, also between the right fin gers, few scattered spots on body, lower legs, feet. Duration: 2 days Pruritis: Yes Pain: No Change: NO Bleeding/ulceration/blister/pustule: Red bumps Contacts with rash: No Exposure: No new soaps, detergents, fabric softeners, lotion s. 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 Change in medications: No. Recent illness: No; denies fever, malaise, or sore throat. Treatment: None. PAST MEDICAL HISTORY Diagnosis Date - Anxiety disorder 08/30/2015 - Depressive disorder 08/30/2015 - Hepatitis C virus infection without hepatic coma 08/30/2015 - Opioid dependence in remission (HCC) 08/30/2015 10 years since 2005 - Renal calculi MEDICATIONS: No prescriptions on file. ALLERGIES: ALLERGIES Allergen Reactions - Latex Hives - Penicillins Unknown - Venom-Honey Bee Swelling VITALS: BP 136/86 Pulse 73 Temp 36.5 ?C (97.7 ?F) (Left Tympanic ) Resp 16 Wt 84.4 kg (186 lb) SpO2 97% BMI 28.07 kg/m? PHYSICAL EXAM: GEN: pleasant, no acute distress, alert SKIN: Left palm has deep erythematous 2-3mm papular rash con centrated over the thenar eminence, potentially evolving into v esicles. There are a few tiny erythematous spots on the right hand interdigital skin, dors al and lateral right foot, and lower leg. ASSESSMENT/PLAN: 1. Rash of hands - ICD9: 782.1, ICD10: R21 (primary diagnosi s) Few rashes erupt on the palms and feet. Discusse d hand foot and mouth disease and methods to reduce spread. Differential also includ es contact dermatitis, dyshidrotic eczema, syphilis, and id reaction. - SYPHILIS TOTAL W/REFLEX 2. History of hepatitis - ICD9: V12.09, ICD10: Z86.19 Type not specified. Reports infection resolved w ithout treatment. HIV testing has been negative. With the same partner for 2 years. - SYPHILIS TOTAL W/REFLEX 3. Genital warts - ICD9: 078.11, ICD10: A63.0 Requests help with treatment for genital warts. He has no PC P. - CONSULT TO UROLOGY Tristan Zhang MD Referring Provider: SELF [200] Allergies As of Date: 12/28/2019 Noted Allergy Reaction LATEX 11/18/2017 4 - Hives PENICILLINS 11/11/2017 16 - Unknown VENOM-HONEY BEE 07/13/2016 7 - Swelling Date Reviewed: 12/28/2019 Reviewed by: Danica Ferrari Ma - Fully Assessed Reason for Visit: Rash [1087] Cmt: MARÍA hands x 2 days Primary Visit Diagnosis:Rash of hands [R21] Other Visit Diagnoses:History of hepatitis [Z86.19] Genital warts [A63.0] Order(s):SYPHILIS TOTAL W/REFLEX [SQSYPHTX] Order #: [id number] FUTURE CONSULT TO UROLOGY [9041] Order #: [id number]: 1 FUTURE Problem List As Of Date 12/28/2019 Noted Resolved Depressive disorder [F32.9] 08/30/2015 Anxiety disorder [F41.9] 08/30/2015 Daytime somnolence [R40.0] 08/30/2015 Hepatitis C virus infection without hepatic com*08/30/2015 Opioid dependence in remission (HCC) [F11.21] 08/30/2015 Medications Discontinued During This Encounter Prescriptions - escitalopram oxalate (LEXAPRO) 10 mg tablet (Discontinued) Take 1 tablet by mouth once daily. - escitalopram oxalate (LEXAPRO) 10 mg tablet (Discontinued) Take 10 mg by mouth once daily. - buPROPion XL (WELLBUTRIN XL) 150 mg 24 hr tablet (Disconti nued) Take 1 tablet by mouth once daily. - IBUPROFEN IB ORAL (Discontinued) Take by mouth. Letter Text Encounter Status:Closed by TRISTAN ZHANG MD on 12/28/19 culture urine on 14-11-10 CULTURE URINE CULTURE URINE --> Status: F [facility] growth (<1,000 CFU/ml). (75640) Comment: Order Comment: Specimen Sour ce Comment:Urine, clean catch Performed By: #### C/UR #### [employer] [address] [place] [id number] drugs of abuse on Opiates, Ur Negative Normal 11-05-2018 [facility] (23327) Comment: Performed By: #### CUA2, DRG A4 #### [address] [place] [address] Phencyclidine (PCP), Ur Negative Normal 2018 [facility] (45459) Comment: Result Comment: The expected value for all of the drugs listed above is Negative. The following drugs or drug groups have been screened for by Immunoassay at the fo llowing thresholds: Amphetamine class (1000 ng/m L), Barbiturates (200 ng/mL), Benzodiazepines (200 ng/mL), Cocaine (300 ng/mL), Methadone (300 ng/mL), Opiat es (300 ng/mL), Oxycodone (100 ng/mL), and P CP (25 ng/mL). NOTE: These results are for medical treatment only. Analysis performed using non -forensic procedures. POSITIVE results are NOT con firmed by a more specific alternative method unless re quested. If confirmation is needed, request confirmation under separate order. Performed By: #### CUA2, DRG A4 #### [address] [address] Methadone, Ur Negative Normal 11-05-2018 [facility] (65123) Comment: Performed By: #### CUA2, DRG A4 #### [address] [place] [address] Benzodiazepines, Ur Negative Normal 11-05-2018 [facility] (39282) Comment: Performed By: #### CUA2, DRG A4 #### [address] [place] [address] Cocaine, Ur Negative Normal 11-05-2018 [facility] (81602) Comment: Performed By: #### CUA2, DRG A4 #### [address] [place] [address] Amphetamines, Ur Negative Normal 11-05-2018 [facility] (25535) Comment: Performed By: #### CUA2, DRG A4 #### [address] [place] [address] Barbiturates, Ur Negative Normal 11-05-2018 [facility] (61592) Comment: Performed By: #### CUA2, DRG A4 #### [facility] [address] [place] [address] Oxycodone/Oxymorphine,Ur Negative Normal 11-05 [facility] (39632) Comment: Performed By: #### CUA2, DRG A4 #### [facility] [address] [place] [address] ct abdomen/pelvis w/o contrast on 2018-11-05 CT Abdomen/Pelvis w/o Patient Name: LINDSAY DARLING Normal 11-05-2018 [facility] (74209) CT Exam Date/Time 11/05/2018 12:58:[address] Abdomen/Pelvis (No PO, No IV) Ordering Physician MD ALEXYS, [facility] Accession Number [id number] CPT4 Codes 09931 (CT Abdomen/Pelvis (No PO, No IV)) Reason For Exam FLANK PAIN, STONE DISEASE SUSPECTED Report CT abdomen and pelvis without contrast HISTORY: Flank pain Protocol: 3 mm axial images without intravenous contrast The liver, spleen, pancreas, adrenals, and kidneys are maira l. Gallbladder has been removed. No evidence of bowel inflammat ion or bowel obstruction. No free fluid. Bladder is unremarkable. IMPRESSION: Normal examination. Report Dictated on Final Dictated: 11/05/2018 1:35 pm Dictating Physician: MD RICHARDS MALAY Signed Date and Time: 11/05/2018 1:37 pm Signed by: MD RICHARDS MALAY Transcribed Date and Time: 11/05/2018 1:35 complete urinalysis on 2018-11-05 Appearance (U) Sl. Cloudy Normal 11-05-2018 [facility] (16419) Comment: Result Comment: Reference Ra nge: Clear Performed By: #### CUA2, DRG A4 #### [facility] [address] [place] [address] Bilirubin,Urine Negative Normal 11-05-2018 [facility] (96020) Comment: Result Comment: Reference Ra nge: Negative Performed By: #### CUA2, DRG A4 #### [facility] [address] [place] [address] Color (U) Yellow Normal 11-05-2018 [facility] (72012) Comment: Result Comment: Reference Ra nge: Lt. Yellow Performed By: #### CUA2, DRG A4 #### [address] [place] [address] Glucose Ql (U) NEG (Normal) Normal 11-05-2018 [facility] (64483) Comment: Result Comment: Reference Ra nge: Normal (<70) Performed By: #### CUA2, DRG A4 #### [address] [address] Ketone,Urine Negative Normal 11-05-2018 [facility] (96933) Comment: Result Comment: Reference Ra nge: Negative Performed By: #### CUA2, DRG A4 #### [address] [address] Leukocytes,Urine NEG Normal 11-05-2018 [facility] (27583) Comment: Result Comment: Reference Ra nge: Negative Performed By: #### CUA2, DRG A4 #### [address] [address] Nitrites,Urine NEG Normal 11-05-2018 [facility] (96533) Comment: Result Comment: Reference Ra nge: Negative Performed By: #### CUA2, DRG A4 #### [address] [place] [address] Occult Blood,Urine Negative Normal 11-05-2018 [facility] (51868) Comment: Result Comment: Reference Ra nge: Negative Performed By: #### CUA2, DRG A4 #### [address] [place] [address] pH (U) 8.0 5.0-8.0 Normal 11-05-2018 [facility] (43466) Comment: Performed By: #### CUA2, DRG A4 #### [address] [address] Protein (U) [Mass/Vol] NEG mg/dL Normal 019 [facility] (03226) Comment: Result Comment: Reference Ra nge: Negative Performed By: #### CUA2, DRG A4 #### [address] [place] [address] Specific Hatley,Urine 1.010 1.005-1.030 Normal 11-05 [facility] (65882) Comment: Performed By: #### CUA2, DRG A4 #### [address] [place] [address] Urobilinogen,Urine Normal (0.2) Normal 11-06-19 [facility] (79660) Comment: Result Comment: Reference Ra nge: Normal (0-1) Performed By: #### CUA2, DRG A4 #### [address] [address] basic metabolic panel on 2018-11-05 Calcium [Mass/Vol] 9.4 8.4-10.4 mg/dL Normal 11-05-2018 [facility] (41665) Comment: Performed By: #### BMP3 #### [address] [address] Anion gap [Moles/Vol] 7 Normal 11-06-19 [facility] (22637) Comment: Performed By: #### BMP3 #### [address] [address] CO2 [Moles/Vol] 30 22-30 mmol/L Normal 11-05-2018 [facility] (32281) Comment: Performed By: #### BMP3 #### [address] [place] [address] Creatinine [Mass/Vol] 0.59 0.52-1.25 mg/dL Normal 11-06-19 [facility] (77061) Comment: Performed By: #### BMP3 #### [address] [place] [address] GFR/1.73 sq M > 60.0 >60 mL/min/{1.73_m2} Normal 9 [facility] predicted among Syst em (16803) blacks MDRD (S/P/Bld) [Vol rate/Area] Comment: Performed By: #### BMP3 #### [employer] [address] [place] [address] GFR/1.73 sq M > 60.0 >60 mL/min/{1.73_m2} Normal 9 [facility] predicted among Syst em (77045) non-blacks MDRD (S/P/Bld) [Vol rate/Area] Comment: Result Comment: Source- MDRD equation with creatinine calibration to IDMS(NKDEP) eGFR not recommended for carmine g dose adjustment Performed By: #### BMP3 #### [employer] [facility] [address] Glucose [Mass/Vol] 105 70-100 mg/dL High 11-05-2018 [employer] (39881) Comment: Performed By: #### BMP3 #### [employer] [facility] [address] Urea nitrogen [Mass/Vol] 12 7-20 mg/dL Normal 11-05 [employer] (04545) Comment: Performed By: #### BMP3 #### [employer] [facility] [address] Chloride [Moles/Vol] 101 98-107 mmol/L Normal 9 [employer] (17515) Comment: Performed By: #### BMP3 #### [employer] [address] [place] [address] Potassium [Moles/Vol] 3.9 3.5-5.1 mmol/L Normal 11-06-19 19 [employer] (79701) Comment: Performed By: #### BMP3 #### [employer] [address] [place] [address] Sodium [Moles/Vol] 137 135-145 mmol/L Normal 11-05-2018 [employer] (96291) Comment: Performed By: #### BMP3 #### [employer] [address] [place] [address], [place] [address] replaced document: (p) culture, fungus w / [id number] on 2016-12-21 GE use only - for . Invalid Interpretation 12-21-2016 - [facility] [employer] import Code 12-21-2016 [facility] and when terms are not O rthopaedics (17036) otherwise specified wound culture on 13-12-18 WOUND CULTURE GRAM STAIN Normal 12-15-2016 [facility] FEW WBC'S [place] (00 000) FEW GRAM POSITIVE COCCI FEW GRAM POSITIVE BACILLUS ORGANISM 1: DIPHTHEROIDS QUANTITATION MODERATE ID TO FOLLOW NOT VIABLE FOR SENSITIVITY Comment: Order Comment: [place]: M Performed By: #### L500.0140 0, L500.30726, L500.47790, L500.53131, L550.00839 ####[facility] [id number] [place], [place] [address]Zy# [phone] gfr est on IF AMER Greater than 60 Normal 12-16-[address] [place] [address] (56659) Comment: Order Comment: [place]: M Performed By: #### L500.0140 0, L500.38429, L500.66285, L500.75265, L550.04546 ####[facility] [id number] [place] [address]Ty# [phone] IF non-AFR AMER Greater than 60 Normal 12-16-[address] [place] [address] (66028) Comment: Order Comment: [place]: M Performed By: #### L500.0140 0, L500.65988, L500.42313, L500.89671, L550.17738 ####[facility] [id number] [place], [place] [address]Rq# [phone] cmp on 2016-12-15 Alanine aminotransferase (ALT) 45 13-61 IU/L Normal 12-15-[address] [facility] [place] (00 000) Comment: Order Comment: [place]: M Performed By: #### L500.0140 0, L500.10478, L500.13193, L500.96729, L550.83933 ####[facility] [id number] [place], [place] [address]Hl# [phone] Albumin 3.4 3.2-5.0 GM/DL Normal 12-15-2016 [facility] (45158) Comment: Order Comment: [place]: M Performed By: #### L500.0140 0, L500.36443, L500.16953, L500.65267, L550.41504 ####[facility] [id number] [place], [place] [address]Df# [phone] Albumin/Globulin Ratio 0.9 0.8-2.0 {ratio} Normal 017 [facility] (00 000) Comment: Order Comment: [place]: M Performed By: #### L500.0140 0, L500.01436, L500.08813, L500.89606, L550.13862 ####[facility] [id number] [place], [place] [address]Kj# [phone] ALK PHOS 130 45-117 U/L High 12-15-2016 [facility] (72341) Comment: Order Comment: [place]: M Performed By: #### L500.0140 0, L500.49082, L500.18409, L500.51755, L550.53582 ####[facility] [id number] [place], [place] [address]Oq# [phone] Anion gap 9 5-16 MMOL/L Normal 12-15-2016 [facility] (89801) Comment: Order Comment: [place]: M Performed By: #### L500.0140 0, L500.96043, L500.96818, L500.33871, L550.58359 ####[facility] [id number] [place], [place] [address]Ie# [phone] BILI TOTAL 0.3 0.2-1.0 MG/DL Normal 12-15-2016 [facility] (12014) Comment: Order Comment: [place]: M Performed By: #### L500.0140 0, L500.84955, L500.57536, L500.50440, L550.79914 ####[facility] [id number] [place], [place] [address]Xa# [phone] BUN/Creatinine Ratio 18 15-24 mg/mg Normal 7 [facility] (12365) Comment: Order Comment: [place]: M Performed By: #### L500.0140 0, L500.45426, L500.40027, L500.41164, L550.39026 ####[facility] [id number] [place], [place] [address]Sv# [phone] Calcium 9.8 8.5-10.1 MG/DL Normal 12-15-2016 [facility] (97564) Comment: Order Comment: [place]: M Performed By: #### L500.0140 0, L500.99766, L500.91607, L500.81511, L550.67029 ####[facility] [id number] [place], [place] [address]Fw# [phone] Chloride 100 98-107 MMOL/L Normal 12-15-2016 [facility] (33750) Comment: Order Comment: [place]: M Performed By: #### L500.0140 0, L500.13753, L500.89157, L500.24804, L550.10148 ####[facility] [id number] [place], [place] [address]Ow# [phone] CO2 30 21-32 MMOL/L Normal 12-15-2016 [facility] (57252) Comment: Order Comment: [place]: M Performed By: #### L500.0140 0, L500.58733, L500.39280, L500.18787, L550.33061 ####[facility] [id number] [place], [place] [address]Dc# [phone] Creatinine 0.867 0.670-1.170 MG/DL Normal 12-15-2016 [facility] (38981) Comment: Order Comment: [place]: M Result Comment: Patients rec eiving either N-Acetylcysteine (NAC) orMetamizole prior to venipu ncture, may have falsely depressedresults. Performed By: #### L500.0140 0, L500.37653, L500.81487, L500.26469, L550.26775 ####[facility] [id number] [place], [place] [address]Es# [phone] Globulin 3.6 2.2-4.2 GM/DL Normal 12-15-2016 [facility] (57516) Comment: Order Comment: [place]: M Performed By: #### L500.0140 0, L500.87712, L500.79833, L500.99199, L550.51661 ####[facility] [id number] [place], [place] [address]Mw# [phone] Glucose mass conc 98 70-100 MG/DL Normal 12-15-2016 [facility] (25262) Comment: Order Comment: [place]: M Result Comment: 95-342-Tndno l Fasting; 184-256-Qpuaxwtn Fasting; greaterthan 126 on more than one result- Diabetes. ADA guidelines Performed By: #### L500.0140 0, L500.62479, L500.22385, L500.94228, L550.44178 ####[facility] [id number] [place], [place] [address]Og# [phone] Potassium molar conc 4.3 3.5-5.1 MMOL/L Normal 7 [facility] (74497) Comment: Order Comment: [place]: M Performed By: #### L500.0140 0, L500.68597, L500.57463, L500.62536, L550.25047 ####[facility] [facility] [id number] [place], [place] [address]Ad# [phone] Protein 7.0 6.0-8.5 GM/DL Normal 12-15-2016 [facility] (24789) Comment: Order Comment: [place]: M Performed By: #### L500.0140 0, L500.07716, L500.05992, L500.55388, L550.64207 ####[facility] TOTXIVGMSU7771 [place], [place] [address]Hr# [phone] SGOT (AST) 30 8-34 U/L Normal 12-15-2016 [facility] (59754) Comment: Order Comment: [place]: M Performed By: #### L500.0140 0, L500.59211, L500.65338, L500.63656, L550.89644 ####[facility] [place] [address]Ed# [phone] Sodium 139 136-145 MMOL/L Normal 12-15-2016 [facility] (96941) Comment: Order Comment: [place]: M Performed By: #### L500.0140 0, L500.92530, L500.97144, L500.74462, L550.21724 ####[address] [address]Jx# [phone] Urea nitrogen 16 7-26 MG/DL Normal 12-15-2016 [facility] (49444) Comment: Order Comment: [place]: M Performed By: #### L500.0140 0, L500.14512, L500.66654, L500.08459, L550.10903 ####[facility] [place] [address]Lu# [phone] cbc w/diff on 12-15 BASO ABS 0.10 0-0.2 K/CU MM Normal 12-15-2016 [facility] (45001) Comment: Order Comment: [place]: M Performed By: #### L500.0140 0, L500.11565, L500.11371, L500.70181, L550.92640 ####[place] [place], [place] [address]Fh# [phone] Basophils/100 WBC Auto (Bld) 1.4 0-2 % Normal 0 12-15-2016 [facility] (72835) Comment: Order Comment: [place]: M Performed By: #### L500.0140 0, L500.62614, L500.89086, L500.56086, L550.40938 ####[facility] JNJXCMREIG2109 [place], [place] [address]Xr# [phone] EOS ABS 0.40 0-0.5 K/CU MM Normal 12-15-2016 [facility] [place] (86553) Comment: Order Comment: [place]: M Performed By: #### L500.0140 0, L500.32064, L500.71263, L500.43152, L550.29438 ####[facility] RLLCUBQKOZ9891 [place], [place] [address]Ud# [phone] Eosinophils/100 leukocytes 6.1 0-5 % High [facility] (00784) Comment: Order Comment: [place]: M Performed By: #### L500.0140 0, L500.16317, L500.47497, L500.24758, L550.65225 ####[facility] NEBHTITGZS6659 [place], [place] [address]Vk# [phone] Erythrocyte distribution 13.1 11-14.5 % Normal 12-[address] [facility] width Auto Ratio (RBC) [place] (42973) Comment: Order Comment: [place]: M Performed By: #### L500.0140 0, L500.19322, L500.74543, L500.80693, L550.94705 ####[facility] SVAEWIFZRC4962 [place], [place] [address]Rb# [phone] Erythrocytes (RBC) 4.41 4.50-6.00 M/CU MM Low 12-15-2016 [facility] (87143) Comment: Order Comment: [place]: M Performed By: #### L500.0140 0, L500.27927, L500.43262, L500.07059, L550.80412 ####[facility] OMFYHHJOCA4739 [place], [place] [address]Kf# [phone] Erythrocytes (RBC) 0.0 Less than 1 % Normal [address] [place] [address] (96961) Comment: Order Comment: [place]: M Performed By: #### L500.0140 0, L500.43237, L500.96378, L500.33608, L550.50762 ####[facility] SBTVFJSNJN2707 [place], [place] [address]Ll# [phone] Hematocrit (HCT) 37.4 41.0-53.0 % Low 12-15-2016 [facility] (58197) Comment: Order Comment: [place]: M Performed By: #### L500.0140 0, L500.44462, L500.35420, L500.93442, L550.12858 ####[address] [address]Sk# [phone] Hemoglobin mass conc (Bld) 12.4 13.5-17.5 G/DL Low [facility] (00 000) Comment: Order Comment: [place]: M Performed By: #### L500.0140 0, L500.04130, L500.25714, L500.60024, L550.41687 ####[facility] [id number] [place], [place] [address]Af# [phone] IMMATR GRAN ABS 0.10 Less than 2 K/CU MM Normal 12-15-2016 [facility] (00 000) Comment: Order Comment: [place]: M Performed By: #### L500.0140 0, L500.54402, L500.58472, L500.22069, L550.46285 ####[facility] EUHEWHNNLO7093 [place], [place] [address]Et# [phone] IMMATURE GRAN % 0.8 Less than 2 % Normal 12-15-2016 [facility] (50766) Comment: Order Comment: [place]: M Performed By: #### L500.0140 0, L500.20604, L500.39743, L500.21284, L550.72565 ####[facility] SSBICGJLRS6026 [place], [place] [address]Ad# [phone] Lymphocytes 3.60 0.9-4.4 K/CU MM Normal 12-15-2016 [facility] (22660) Comment: Order Comment: [place]: M Performed By: #### L500.0140 0, L500.06505, L500.18801, L500.10576, L550.96544 ####[facility] [place], [place] [address]Bi# [phone] Lymphocytes/100 leukocytes 56.6 20-40 % High [facility] (04712) Comment: Order Comment: [place]: M Performed By: #### L500.0140 0, L500.33679, L500.05420, L500.58975, L550.37937 ####[address] [place], [place] [address]Iv# [phone] MCHC mass conc (RBC) 33.2 32.0-36.0 GM/DL Normal 7 [facility] (00 000) Comment: Order Comment: [place]: M Performed By: #### L500.0140 0, L500.86426, L500.20230, L500.32854, L550.35314 ####[facility] SQLYBCZQEE0969 [place], [place] [address]Ql# [phone] MCV 84.8 80.0-99.0 fl Normal 12-15-2016 [facility] (01039) Comment: Order Comment: [place]: M Performed By: #### L500.0140 0, L500.68078, L500.76796, L500.02856, L550.60540 ####[facility] ULZYKOTZJB9003 [place], [place] [address]Qa# [phone] MONO ABS 0.50 0.1-1.1 K/CU MM Normal 12-15-2016 [facility] (80052) Comment: Order Comment: [place]: M Performed By: #### L500.0140 0, L500.13983, L500.50252, L500.77316, L550.39741 ####[facility] LKEBWVOYPA3061 [place], [place] [address]Mk# [phone] Monocytes/100 leukocytes 8.5 2-10 % Normal 12-15 [facility] (40773) Comment: Order Comment: [place]: M Performed By: #### L500.0140 0, L500.28428, L500.89088, L500.89863, L550.46161 ####[facility] XEVBPADCRS6074 [place], [place] [address]Xh# [phone] Neutrophils 1.70 2.0-8.3 K/CU MM Low 12-15-2016 [facility] (68697) Comment: Order Comment: [place]: M Performed By: #### L500.0140 0, L500.23359, L500.28619, L500.30398, L550.77557 ####[facility] [address]GBYL[address] [place] [address]Gf# [phone] Neutrophils/100 WBC Auto (Bld) 26.6 45-75 % Low 12-15-2016 [facility] (00 000) Comment: Order Comment: [place]: M Performed By: #### L500.0140 0, L500.79060, L500.78739, L500.00360, L550.24937 ####[facility] VJBTXIECLL8093 [place], [place] [address]Dr# [phone] Platelet mean volume (PMV) 8.8 9.4-12.4 fL Low [facility] (67030) Comment: Order Comment: [place]: M Performed By: #### L500.0140 0, L500.83240, L500.68551, L500.18044, L550.51001 ####[facility] VIKZARTSRB6989 [place], [place] [address]Eb# [phone] Platelets 242 150-450 K/CU MM Normal 12-15-2016 [facility] (83423) Comment: Order Comment: [place]: M Performed By: #### L500.0140 0, L500.69925, L500.42340, L500.17416, L550.13722 ####[facility] NMNSFZFDLT5672 [place], [place] [address]Yz# [phone] WBC (Leukocytes) 6.4 4.5-11.0 K/CU MM Normal 12-15-2016 [facility] (76584) Comment: Order Comment: [place]: M Performed By: #### L500.0140 0, L500.20308, L500.85082, L500.01048, L550.64090 ####[facility] RHWMVTWYIL1881 [place], [place] [address]Zn# [phone] gfr est on IF AMER Greater than 60 Normal 12-14-[address] [place] [address] (42566) Comment: Order Comment: [place]: M Performed By: #### L500.0140 0, L500.22711, L500.68136, L500.60490, L550.09144 ####[facility] VTMVJXGYCP3315 [place], [place] [address]Yh# [phone] IF non-AFR AMER Greater than 60 Normal 12-14-[address] [place] [address] (59812) Comment: Order Comment: [place]: M Performed By: #### L500.0140 0, L500.96749, L500.76686, L500.82961, L550.79148 ####[facility] [address]YNL[address] [place] [address]Lq# [phone] cmp on 2016-12-13 Alanine aminotransferase (ALT) 46 13-61 IU/L Normal 12-13-2016 [facility] (00 000) Comment: Order Comment: [place]: M Performed By: #### L500.0140 0, L500.59058, L500.66384, L500.45471, L550.80174 ####[facility] NLBDLIXUZM8394 [place], [place] [address]Zr# [phone] Albumin 3.4 3.2-5.0 GM/DL Normal 12-13-2016 [facility] (44712) Comment: Order Comment: [place]: M Performed By: #### L500.0140 0, L500.43563, L500.62055, L500.85190, L550.72391 ####[facility] BRHLJQJUMP6186 [place], [place] [address]Lf# [phone] Albumin/Globulin Ratio 1.0 0.8-2.0 {ratio} Normal 017 [facility] (00 000) Comment: Order Comment: [place]: M Performed By: #### L500.0140 0, L500.78199, L500.68176, L500.66831, L550.15022 ####[facility] VUNBZINYOQ1233 [place], [place] [address]Qh# [phone] ALK PHOS 114 45-117 U/L Normal 12-13-2016 [facility] (07879) Comment: Order Comment: [place]: M Performed By: #### L500.0140 0, L500.96316, L500.97629, L500.03412, L550.19969 ####[facility] FOMTXSSQTB6026 [place], [place] [address]Ac# [phone] Anion gap 9 5-16 MMOL/L Normal 12-13-2016 [facility] (08884) Comment: Order Comment: [place]: M Performed By: #### L500.0140 0, L500.48041, L500.48614, L500.63879, L550.12893 ####[facility] WDGXXODFND8994 [place], [place] [address]Jd# [phone] BILI TOTAL 0.3 0.2-1.0 MG/DL Normal 12-13-2016 [facility] (98657) Comment: Order Comment: [place]: M Performed By: #### L500.0140 0, L500.50282, L500.28448, L500.95318, L550.96426 ####[facility] FNQPMQLTGX4176 [place], [place] [address]Ix# [phone] BUN/Creatinine Ratio 19 15-24 mg/mg Normal 7 [facility] (15206) Comment: Order Comment: [place]: M Performed By: #### L500.0140 0, L500.91265, L500.81233, L500.50960, L550.71128 ####[facility] BXEZZDZZUV8945 [place], [place] [address]Ji# [phone] Calcium 9.2 8.5-10.1 MG/DL Normal 12-13-2016 [facility] (47105) Comment: Order Comment: [place]: M Performed By: #### L500.0140 0, L500.00396, L500.40722, L500.48122, L550.89923 ####[facility] TVLYDRADRF4504 [place], [place] [address]Ug# [phone] Chloride 102 98-107 MMOL/L Normal 12-13-2016 [facility] (24023) Comment: Order Comment: [place]: M Performed By: #### L500.0140 0, L500.03785, L500.74626, L500.28184, L550.40857 ####[facility] JQMVHGFWSQ7496 [place], [place] [address]Ay# [phone] CO2 27 21-32 MMOL/L Normal 12-13-2016 [facility] (14810) Comment: Order Comment: [place]: M Performed By: #### L500.0140 0, L500.08951, L500.13764, L500.93520, L550.58188 ####[facility] ARWJTIQUED1753 [place], [place] [address]Pg# [phone] Creatinine 0.774 0.670-1.170 MG/DL Normal 12-13-2016 [facility] (54648) Comment: Order Comment: [place]: M Result Comment: Patients rec eiving either N-Acetylcysteine (NAC) orMetamizole prior to venipu ncture, may have falsely depressedresults. Performed By: #### L500.0140 0, L500.68051, L500.84939, L500.74644, L550.91504 ####[facility] BRDEVIWFLE9342 [place], [place] [address]Gr# [phone] Globulin 3.3 2.2-4.2 GM/DL Normal 12-13-2016 [facility] (68415) Comment: Order Comment: [place]: M Performed By: #### L500.0140 0, L500.77119, L500.48130, L500.60398, L550.94514 ####[facility] OZNUMMMKJS0052 [place], [place] [address]Na# [phone] Glucose mass conc 83 70-100 MG/DL Normal 12-13-2016 [facility] (93932) Comment: Order Comment: [place]: M Result Comment: 09-403-Qstcf l Fasting; 452-287-Rxenfqmq Fasting; greaterthan 126 on more than one result- Diabetes. ADA guidelines Performed By: #### L500.0140 0, L500.44398, L500.96269, L500.54715, L550.56625 ####[facility] WORGHYQBBP7194 [place], [place] [address]Es# [phone] Potassium molar conc 4.5 3.5-5.1 MMOL/L Normal 7 [facility] (72414) Comment: Order Comment: [place]: M Performed By: #### L500.0140 0, L500.47196, L500.77689, L500.63993, L550.80287 ####[facility] RBRSTLXKLC1314 [place], [place] [address]Jb# [phone] Protein 6.7 6.0-8.5 GM/DL Normal 12-13-2016 [facility] (97142) Comment: Order Comment: [place]: M Performed By: #### L500.0140 0, L500.03355, L500.87891, L500.95140, L550.21532 ####[facility] QIUXMUGIYG3934 [place], [place] [address]Io# [phone] SGOT (AST) 30 8-34 U/L Normal 12-13-2016 [facility] (85291) Comment: Order Comment: [place]: M Performed By: #### L500.0140 0, L500.20740, L500.92718, L500.60806, L550.81468 ####[facility] AFJDTGYXUC3956 [place], [place] [address]Es# [phone] Sodium 137 136-145 MMOL/L Normal 12-13-2016 [facility] (24536) Comment: Order Comment: [place]: M Performed By: #### L500.0140 0, L500.49401, L500.13261, L500.12494, L550.43349 ####[facility] CGMCHIWODJ1659 [place], [place] [address]Tq# [phone] Urea nitrogen 15 7-26 MG/DL Normal 12-13-2016 [facility] (88391) Comment: Order Comment: [place]: M Performed By: #### L500.0140 0, L500.10808, L500.60758, L500.42331, L550.57252 ####[facility] ZLUIVYCAHA8714 [place], [place] [address]Zu# [phone] cbc w/diff on 12-13 BASO ABS 0.10 0-0.2 K/CU MM Normal 12-13-2016 [facility] (25176) Comment: Order Comment: [place]: M Performed By: #### L500.0140 0, L500.27694, L500.39255, L500.10217, L550.20555 ####[facility] JAETSMHDUU5996 [place], [place] [address]Dn# [phone] Basophils/100 WBC Auto (Bld) 1.2 0-2 % Normal 0 12-13-2016 [facility] (11906) Comment: Order Comment: [place]: M Performed By: #### L500.0140 0, L500.63750, L500.00502, L500.11850, L550.32189 ####[facility] APPSLEJFUP1881 [place], [place] [address]Nk# [phone] EOS ABS 0.30 0-0.5 K/CU MM Normal 12-13-2016 [facility] [place] (70855) Comment: Order Comment: [place]: M Performed By: #### L500.0140 0, L500.26876, L500.64224, L500.39485, L550.74842 ####[address] [address]Fo# [phone] Eosinophils/100 leukocytes 4.5 0-5 % Normal [facility] (04924) Comment: Order Comment: [place]: M Performed By: #### L500.0140 0, L500.95934, L500.32483, L500.45527, L550.65122 ####[facility] WTJVCJBLJZ5464 [place], [place] [address]Hk# [phone] Erythrocyte distribution 13.3 11-14.5 % Normal 12-[address] [facility] width Auto Ratio (RBC) [place] (55650) Comment: Order Comment: [place]: M Performed By: #### L500.0140 0, L500.80385, L500.17444, L500.77978, L550.65676 ####[facility] BVVCXEPNTG[address] [place] [address]Rm# [phone] Erythrocytes (RBC) 0.0 Less than 1 % Normal 7 [facility] (65812) Comment: Order Comment: [place]: M Performed By: #### L500.0140 0, L500.69379, L500.55829, L500.27250, L550.58782 ####[facility] EKTSOCDVTK6929 [place], [place] [address]Xf# [phone] Erythrocytes (RBC) 4.24 4.50-6.00 M/CU MM Low 12-13-2016 [facility] (48191) Comment: Order Comment: [place]: M Performed By: #### L500.0140 0, L500.08878, L500.19735, L500.86827, L550.36300 ####[facility] VXDJEQTLTO2971 [place], [place] [address]Gq# [phone] Hematocrit (HCT) 36.8 41.0-53.0 % Low 12-13-2016 [facility] (24089) Comment: Order Comment: [place]: M Performed By: #### L500.0140 0, L500.77547, L500.01068, L500.93039, L550.89426 ####[facility] FNTVBBZODN0434 [place], [place] [address]Ca# [phone] Hemoglobin mass conc (Bld) 12.0 13.5-17.5 G/DL Low [facility] (00 000) Comment: Order Comment: [place]: M Performed By: #### L500.0140 0, L500.49744, L500.20609, L500.53320, L550.34930 ####[facility] JLMTAWXPIR0174 [place], [place] [address]Ns# [phone] IMMATR GRAN ABS 0.00 Less than 2 K/CU MM Normal 12-13-2016 [facility] (00 000) Comment: Order Comment: [place]: M Performed By: #### L500.0140 0, L500.87817, L500.11159, L500.18283, L550.18467 ####[facility] UPDMMGOBFQ6628 [place], [place] [address]Xz# [phone] IMMATURE GRAN % 0.5 Less than 2 % Normal 12-13-2016 [facility] (47776) Comment: Order Comment: [place]: M Performed By: #### L500.0140 0, L500.38680, L500.64584, L500.36544, L550.65666 ####[facility] HLNQQILERA9059 [place], [place] [address]Ce# [phone] Lymphocytes 4.10 0.9-4.4 K/CU MM Normal 12-13-2016 [facility] (77708) Comment: Order Comment: [place]: M Performed By: #### L500.0140 0, L500.67609, L500.05644, L500.81508, L550.73076 ####[facility] [place], [place] [address]Dj# [phone] Lymphocytes/100 leukocytes 63.2 20-40 % High [facility] (68702) Comment: Order Comment: [place]: M Performed By: #### L500.0140 0, L500.31156, L500.04319, L500.25075, L550.51313 ####[facility] PAJLLCNWCA2626 [place], [place] [address]Jn# [phone] MCHC mass conc (RBC) 32.6 32.0-36.0 GM/DL Normal 7 [facility] (00 000) Comment: Order Comment: [place]: M Performed By: #### L500.0140 0, L500.31014, L500.35441, L500.29525, L550.75681 ####[facility] JWJTGEVAQQ7295 [place], [place] [address]Mi# [phone] MCV 86.8 80.0-99.0 fl Normal 12-13-2016 [facility] (95517) Comment: Order Comment: [place]: M Performed By: #### L500.0140 0, L500.88155, L500.41389, L500.83191, L550.41297 ####[facility] HTYEWNLVUD3102 [place], [place] [address]Gh# [phone] MONO ABS 0.50 0.1-1.1 K/CU MM Normal 12-13-2016 [facility] (59159) Comment: Order Comment: [place]: M Performed By: #### L500.0140 0, L500.63442, L500.20927, L500.54849, L550.73050 ####[facility] GAFUKPTEHY2242 [place], [place] [address]Uy# [phone] Monocytes/100 leukocytes 7.6 2-10 % Normal 12-13 [facility] (85047) Comment: Order Comment: [place]: M Performed By: #### L500.0140 0, L500.40850, L500.90092, L500.11097, L550.28948 ####[address] [address]Pk# [phone] Neutrophils 1.50 2.0-8.3 K/CU MM Low 12-13-2016 [facility] (30688) Comment: Order Comment: [place]: M Performed By: #### L500.0140 0, L500.12332, L500.60221, L500.97975, L550.94618 ####[address] [address]Ya# [phone] Neutrophils/100 WBC Auto (Bld) 23.0 45-75 % Low 12-13-2016 [facility] (00 000) Comment: Order Comment: [place]: M Performed By: #### L500.0140 0, L500.96538, L500.47412, L500.28826, L550.53035 ####[address] [address]Na# [phone] Platelet mean volume (PMV) 9.1 9.4-12.4 fL Low [facility] (65039) Comment: Order Comment: [place]: M Performed By: #### L500.0140 0, L500.71873, L500.42492, L500.15909, L550.86953 ####[facility] AKSTXOITUU0113 [place], [place] [address]Xd# [phone] Platelets 233 150-450 K/CU MM Normal 12-13-2016 [facility] (17859) Comment: Order Comment: [place]: M Performed By: #### L500.0140 0, L500.91595, L500.92551, L500.64714, L550.38876 ####[facility] YURKLPOPFI4853 [place], [place] [address]Tu# [phone] WBC (Leukocytes) 6.5 4.5-11.0 K/CU MM Normal 12-13-2016 [facility] (74049) Comment: Order Comment: [place]: M Performed By: #### L500.0140 0, L500.96281, L500.70786, L500.14234, L550.68987 ####[address] [address]Mc# [phone] mrsa pcr on 2016-11 MRSA PCR NEGATIVE NEGATIVE Normal 12-08-2016 [facility] (08322) Comment: Order Comment: [place]: M Result Comment: PLEASE NOTE: TESTING DONE BY PCR TECHNOLOGY. Performed By: #### L500.0140 0, L500.53857, L500.03112, L500.93337, L550.52136 ####[facility] [id number] [place], [place] [address]Lw# [phone] SA PCR NEGATIVE NEGATIVE Normal 12-08-2016 [facility] (58242) Comment: Order Comment: [place]: M Result Comment: PLEASE NOTE: TESTING DONE BY PCR TECHNOLOGY. Performed By: #### L500.0140 0, L500.78712, L500.81492, L500.50465, L550.93086 ####[facility] [id number] [place] [address]Bh# [phone] gfr est on IF AMER Greater than 60 Normal 12-09-[address] [place] [address] ([id number]) Comment: Order Comment: [place]: M Performed By: #### L500.0140 0, L500.68485, L500.14302, L500.11917, L550.99816 ####[facility] [id number] [place], [place] [address]Hb# [phone] IF non-AFR AMER Greater than 60 Normal 12-09-[address] [place] [address] ([id number]) Comment: Order Comment: [place]: M Performed By: #### L500.0140 0, L500.41882, L500.61246, L500.94640, L550.73406 ####[facility] [id number] [place], [place] [address]Si# [phone] cmp on 2016-12-08 Alanine aminotransferase (ALT) 61 13-61 IU/L Normal 12-08-2016 [facility] (00 000) Comment: Order Comment: [place]: M Performed By: #### L500.0140 0, L500.03090, L500.06667, L500.10913, L550.69878 ####[facility] [id number] [place], [place] [address]Ve# [phone] Albumin 4.0 3.2-5.0 GM/DL Normal 12-08-2016 [facility] (17176) Comment: Order Comment: [place]: M Performed By: #### L500.0140 0, L500.67739, L500.38722, L500.85622, L550.88095 ####[facility] [id number] [place], [place] [address]Zb# [phone] Albumin/Globulin Ratio 1.0 0.8-2.0 {ratio} Normal [address] [place] [address] (00 000) Comment: Order Comment: [place]: M Performed By: #### L500.0140 0, L500.78590, L500.00673, L500.26704, L550.14203 ####[facility] [id number] [place], [place] [address]Nl# [phone] ALK PHOS 139 45-117 U/L High 12-08-2016 [facility] ([id number]) Comment: Order Comment: [place]: M Performed By: #### L500.0140 0, L500.80625, L500.78217, L500.33775, L550.02022 ####[facility] [id number] [place], [place] [address]Dq# [phone] Anion gap 5 5-16 MMOL/L Normal 12-08-2016 [facility] (67027) Comment: Order Comment: [place]: M Performed By: #### L500.0140 0, L500.18968, L500.99778, L500.89803, L550.47341 ####[facility] [id number] [place] [address]In# [phone] BILI TOTAL 0.4 0.2-1.0 MG/DL Normal 12-08-2016 [facility] (28404) Comment: Order Comment: [place]: M Performed By: #### L500.0140 0, L500.51637, L500.36282, L500.17623, L550.81107 ####[facility] [id number] [place], [place] [address]Bl# [phone] BUN/Creatinine Ratio 17 15-24 mg/mg Normal 7 [facility] (62057) Comment: Order Comment: [place]: M Performed By: #### L500.0140 0, L500.32796, L500.97020, L500.54209, L550.07302 ####[facility] [id number] [place], [place] [address]Yq# [phone] Calcium 9.4 8.5-10.1 MG/DL Normal 12-08-2016 [facility] (57059) Comment: Order Comment: [place]: M Performed By: #### L500.0140 0, L500.93360, L500.17345, L500.76847, L550.68758 ####[facility] [id number] [place], [place] [address]Fs# [phone] Chloride 99 98-107 MMOL/L Normal 12-08-2016 [facility] (09909) Comment: Order Comment: [place]: M Performed By: #### L500.0140 0, L500.61274, L500.49371, L500.04316, L550.69734 ####[facility] [id number] [place], [place] [address]Gc# [phone] CO2 32 21-32 MMOL/L Normal 12-08-2016 [facility] (40127) Comment: Order Comment: [place]: M Performed By: #### L500.0140 0, L500.70340, L500.64375, L500.54359, L550.37866 ####[facility] [id number] [place], [place] [address]Ro# [phone] Creatinine 0.784 0.670-1.170 MG/DL Normal 12-08-2016 [facility] (11604) Comment: Order Comment: [place]: M Result Comment: Patients rec eiving either N-Acetylcysteine (NAC) orMetamizole prior to venipu ncture, may have falsely depressedresults. Performed By: #### L500.0140 0, L500.49869, L500.69793, L500.65103, L550.66931 ####[facility] KWMYNMMJOZ8714 [place], [place] [address]Wv# [phone] Globulin 4.1 2.2-4.2 GM/DL Normal 12-08-2016 [facility] (95129) Comment: Order Comment: [place]: M Performed By: #### L500.0140 0, L500.47206, L500.19640, L500.73662, L550.75218 ####[facility] QWZQWBDEOT2488 [place], [place] [address]In# [phone] Glucose mass conc 89 70-100 MG/DL Normal 12-08-2016 [facility] (43999) Comment: Order Comment: [place]: M Result Comment: 50-048-Asdhc l Fasting; 959-072-Appcqcbo Fasting; greaterthan 126 on more than one result- Diabetes. ADA guidelines Performed By: #### L500.0140 0, L500.55082, L500.14263, L500.17564, L550.65765 ####[facility] JVCIJJAPKE1158 [place], [place] [address]Hu# [phone] Potassium molar conc 4.5 3.5-5.1 MMOL/L Normal 7 [facility] (16326) Comment: Order Comment: [place]: M Performed By: #### L500.0140 0, L500.92256, L500.07441, L500.92711, L550.58603 ####[facility] [id number] [place], [place] [address]Kw# [phone] Protein 8.1 6.0-8.5 GM/DL Normal 12-08-2016 [facility] (33083) Comment: Order Comment: [place]: M Performed By: #### L500.0140 0, L500.99876, L500.97484, L500.85707, L550.33918 ####[facility] [id number] [place], [place] [address]Kz# [phone] SGOT (AST) 42 8-34 U/L High 12-08-2016 [facility] (31603) Comment: Order Comment: [place]: M Performed By: #### L500.0140 0, L500.72361, L500.02964, L500.27406, L550.32932 ####[facility] QWUFNGHKIE8026 [place], [place] [address]Of# [phone] Sodium 136 136-145 MMOL/L Normal 12-08-2016 [facility] (10508) Comment: Order Comment: [place]: M Performed By: #### L500.0140 0, L500.18635, L500.43305, L500.93828, L550.85307 ####[facility] HOFDZCYRVW4862 [place], [place] [address]Ns# [phone] Urea nitrogen 13 7-26 MG/DL Normal 12-08-2016 [facility] (83001) Comment: Order Comment: [place]: M Performed By: #### L500.0140 0, L500.89894, L500.64433, L500.79576, L550.02326 ####[facility] GWPONZRUMJ4373 [place], [place] [address]Ud# [phone] cbc w/diff on 12-08 BASO ABS 0.10 0-0.2 K/CU MM Normal 12-08-2016 [facility] (47854) Comment: Order Comment: [place]: M Performed By: #### L500.0140 0, L500.68142, L500.16148, L500.34403, L550.49904 ####[facility] [id number] [place], [place] [address]Ko# [phone] Basophils/100 WBC Auto (Bld) 1.1 0-2 % Normal 0 12-08-2016 [facility] (17185) Comment: Order Comment: [place]: M Performed By: #### L500.0140 0, L500.63040, L500.21704, L500.72161, L550.64962 ####[facility] [id number] [place], [place] [address]Sb# [phone] EOS ABS 0.30 0-0.5 K/CU MM Normal 12-08-2016 [facility] (69794) Comment: Order Comment: [place]: M Performed By: #### L500.0140 0, L500.97662, L500.57309, L500.32733, L550.56345 ####[facility] TIYKHFXVZS5041 [place], [place] [address]On# [phone] Eosinophils/100 leukocytes 3.3 0-5 % Normal [facility] (09991) Comment: Order Comment: [place]: M Performed By: #### L500.0140 0, L500.80883, L500.32870, L500.98244, L550.13434 ####[facility] [id number] [place], [place] [address]Eq# [phone] Erythrocyte distribution 13.3 11-14.5 % Normal 12-[address] [facility] width Auto Ratio (RBC) [place] (19535) Comment: Order Comment: [place]: M Performed By: #### L500.0140 0, L500.97362, L500.84463, L500.18666, L550.55639 ####[facility] JDPAOVDNRS8728 [place], [place] [address]Vg# [phone] Erythrocytes (RBC) 4.66 4.50-6.00 M/CU MM Normal 12-08-2016 [facility] (00 000) Comment: Order Comment: [place]: M Performed By: #### L500.0140 0, L500.80522, L500.50848, L500.42745, L550.32474 ####[facility] JDSDQPVQKZ9545 [place], [place] [address]Sz# [phone] Erythrocytes (RBC) 0.0 Less than 1 % Normal [address] [place] [address] ([address]70) Comment: Order Comment: [place]: M Performed By: #### L500.0140 0, L500.29589, L500.64036, L500.31139, L550.07890 ####[facility] [id number] [place], [place] [address]At# [phone] Hematocrit (HCT) 39.8 41.0-53.0 % Low 12-08-2016 [facility] (91751) Comment: Order Comment: [place]: M Performed By: #### L500.0140 0, L500.28282, L500.07022, L500.17110, L550.56361 ####[facility] XJTVHFVBNH4204 [place], [place] [address]Ph# [phone] Hemoglobin mass conc (Bld) 13.1 13.5-17.5 G/DL Low [facility] (00 000) Comment: Order Comment: [place]: M Performed By: #### L500.0140 0, L500.07080, L500.05798, L500.44298, L550.40887 ####[facility] ZFMHVYOVSE2471 [place], [place] [address]Yp# [phone] IMMATR GRAN ABS 0.00 Less than 2 K/CU MM Normal 12-08-2016 [facility] (00 000) Comment: Order Comment: [place]: M Performed By: #### L500.0140 0, L500.58264, L500.40133, L500.00656, L550.82903 ####[address] [place], [place] [address]Ml# [phone] IMMATURE GRAN % 0.5 Less than 2 % Normal 12-08-2016 [facility] (34523) Comment: Order Comment: [place]: M Performed By: #### L500.0140 0, L500.32251, L500.29624, L500.55399, L550.85703 ####[facility] ODWSPMGXFH9065 [place], [place] [address]Rh# [phone] Lymphocytes 3.90 0.9-4.4 K/CU MM Normal 12-08-2016 [facility] (47646) Comment: Order Comment: [place]: M Performed By: #### L500.0140 0, L500.75224, L500.66105, L500.72229, L550.70798 ####[facility] [id number] [place] [address]Lv# [phone] Lymphocytes/100 leukocytes 52.3 20-40 % High [facility] (16070) Comment: Order Comment: [place]: M Performed By: #### L500.0140 0, L500.77219, L500.24217, L500.26803, L550.54716 ####[facility] HYRCXGAMWP6376 [place], [place] [address]Xk# [phone] MCHC mass conc (RBC) 32.9 32.0-36.0 GM/DL Normal 7 [facility] (00 000) Comment: Order Comment: [place]: M Performed By: #### L500.0140 0, L500.71386, L500.05356, L500.19942, L550.63512 ####[facility] IKQBLXHXMG4994 [place], [place] [address]Hl# [phone] MCV 85.4 80.0-99.0 fl Normal 12-08-2016 [facility] (15738) Comment: Order Comment: [place]: M Performed By: #### L500.0140 0, L500.71323, L500.07903, L500.03387, L550.62606 ####[facility] OBYHBBKHPO1342 [place], [place] [address]Uk# [phone] MONO ABS 0.70 0.1-1.1 K/CU MM Normal 12-08-2016 [facility] (06262) Comment: Order Comment: [place]: M Performed By: #### L500.0140 0, L500.44569, L500.99831, L500.04362, L550.38687 ####[facility] HYZLWVGMON3869 [place], [place] [address]Bo# [phone] Monocytes/100 leukocytes 9.6 2-10 % Normal 12-08 [facility] (46632) Comment: Order Comment: [place]: M Performed By: #### L500.0140 0, L500.02267, L500.05800, L500.62949, L550.49430 ####[facility] AMIUFTDNEO1478 [place], [place] [address]Qd# [phone] Neutrophils 2.50 2.0-8.3 K/CU MM Normal 12-08-2016 [facility] (19406) Comment: Order Comment: [place]: M Performed By: #### L500.0140 0, L500.85277, L500.02853, L500.62266, L550.50298 ####[facility] DMDYNPNSFG4883 [place], [place] [address]Re# [phone] Neutrophils/100 WBC Auto (Bld) 33.2 45-75 % Low 12-08-2016 [facility] (00 000) Comment: Order Comment: [place]: M Performed By: #### L500.0140 0, L500.23879, L500.49604, L500.25969, L550.54778 ####[facility] QFKOAXJEXI2203 [place], [place] [address]Mu# [phone] Platelet mean volume (PMV) 8.4 9.4-12.4 fL Low [facility] (17883) Comment: Order Comment: [place]: M Performed By: #### L500.0140 0, L500.02434, L500.18994, L500.74292, L550.86906 ####[facility] NICWYGAPXH5899 [place], [place] [address]Ub# [phone] Platelets 309 150-450 K/CU MM Normal 12-08-2016 [facility] [place] (57355) Comment: Order Comment: [place]: M Performed By: #### L500.0140 0, L500.89509, L500.95506, L500.75335, L550.54808 ####[facility] TZCIUYQEWP3273 [place], [place] [address]Yb# [phone] WBC (Leukocytes) 7.5 4.5-11.0 K/CU MM Normal 12-08-2016 [facility] [place] (35200) Comment: Order Comment: [place]: M Performed By: #### L500.0140 0, L500.02702, L500.55319, L500.66100, L550.22114 ####[facility] DATUUXVJRS8212 [place], [place] [address]Vj# [phone] gfr est on IF AMER Greater than 60 Normal 12-07-[address] [place] [address] (57[address]) Comment: Order Comment: [place]: M Performed By: #### L500.0140 0, L500.02733, L500.56093, L500.37756, L550.79147 ####[facility] VUHZZTGHJL1742 [place], [place] [address]Hg# [phone] IF non-AFR AMER Greater than 60 Normal 12-07-[address] [place] [address] (40231) Comment: Order Comment: [place]: M Performed By: #### L500.0140 0, L500.05350, L500.91841, L500.04537, L550.90545 ####[facility] IRLWHPURGE[address] [place] [address]Py# [phone] cmp on 2016-12-06 Alanine aminotransferase (ALT) 52 13-61 IU/L Normal 12-06-2016 [facility] (00 000) Comment: Order Comment: [place]: M Performed By: #### L500.0140 0, L500.54184, L500.23656, L500.01669, L550.19979 ####[facility] [id number] [place], [place] [address]Cu# [phone] Albumin 3.2 3.2-5.0 GM/DL Normal 12-06-2016 [facility] (49278) Comment: Order Comment: [place]: M Performed By: #### L500.0140 0, L500.37672, L500.71423, L500.54958, L550.40617 ####[facility] POAMHIRGCH9185 [place], [place] [address]Qe# [phone] Albumin/Globulin Ratio 0.9 0.8-2.0 {ratio} Normal [address] [place] [address] (00 000) Comment: Order Comment: [place]: M Performed By: #### L500.0140 0, L500.28437, L500.70715, L500.75113, L550.10896 ####[facility] XLRLBDLWZL8205 [place], [place] [address]Am# [phone] ALK PHOS 127 45-117 U/L High 12-06-2016 [facility] (16330) Comment: Order Comment: [place]: M Performed By: #### L500.0140 0, L500.93257, L500.83841, L500.12410, L550.96150 ####[facility] NFZNGVNMBA5373 [place], [place] [address]Bn# [phone] Anion gap 9 5-16 MMOL/L Normal 12-06-2016 [facility] (61616) Comment: Order Comment: [place]: M Performed By: #### L500.0140 0, L500.59358, L500.11865, L500.04722, L550.16358 ####[facility] SVVQKDSNRH8872 [place], [place] [address]Te# [phone] BILI TOTAL 0.4 0.2-1.0 MG/DL Normal 12-06-2016 [facility] (74031) Comment: Order Comment: [place]: M Performed By: #### L500.0140 0, L500.84866, L500.81122, L500.72477, L550.49696 ####[facility] NXSHZPFJBA4112 [place], [place] [address]Yo# [phone] BUN/Creatinine Ratio 23 15-24 mg/mg Normal 7 [facility] (18009) Comment: Order Comment: [place]: M Performed By: #### L500.0140 0, L500.00535, L500.74486, L500.75300, L550.01265 ####[facility] HNTTSRQPYG3378 [place], [place] [address]Mp# [phone] Calcium 9.2 8.5-10.1 MG/DL Normal 12-06-2016 [facility] (49103) Comment: Order Comment: [place]: M Performed By: #### L500.0140 0, L500.09562, L500.72371, L500.17578, L550.77135 ####[facility] ZZMSPHUAPM8707 [place], [place] [address]To# [phone] Chloride 101 98-107 MMOL/L Normal 12-06-2016 [facility] (98165) Comment: Order Comment: [place]: M Performed By: #### L500.0140 0, L500.88406, L500.45084, L500.87299, L550.90551 ####[facility] NTCWOHTNOR2268 [place], [place] [address]Ht# [phone] CO2 28 21-32 MMOL/L Normal 12-06-2016 [facility] (62716) Comment: Order Comment: [place]: M Performed By: #### L500.0140 0, L500.87129, L500.93629, L500.88771, L550.53908 ####[facility] IEKGZWENHT6773 [place], [place] [address]Nn# [phone] Creatinine 0.726 0.670-1.170 MG/DL Normal 12-06-2016 [facility] (97299) Comment: Order Comment: [place]: M Result Comment: Patients rec eiving either N-Acetylcysteine (NAC) orMetamizole prior to venipu ncture, may have falsely depressedresults. Performed By: #### L500.0140 0, L500.61346, L500.30839, L500.55699, L550.49792 ####[facility] EWYAQQWROV5628 [place], [place] [address]Gr# [phone] Globulin 3.5 2.2-4.2 GM/DL Normal 12-06-2016 [facility] (75042) Comment: Order Comment: [place]: M Performed By: #### L500.0140 0, L500.05837, L500.26633, L500.49417, L550.53195 ####[facility] MTGHSZFFVV5036 [place], [place] [address]Cz# [phone] Glucose mass conc 85 70-100 MG/DL Normal 12-06-2016 [facility] (13218) Comment: Order Comment: [place]: M Result Comment: 04-644-Sdmzk l Fasting; 595-760-Dhhzdkxz Fasting; greaterthan 126 on more than one result- Diabetes. ADA guidelines Performed By: #### L500.0140 0, L500.48056, L500.60702, L500.87572, L550.10448 ####[facility] HFEQEVBWSY5659 [place], [place] [address]Yo# [phone] Potassium molar conc 4.4 3.5-5.1 MMOL/L Normal 7 [facility] (20546) Comment: Order Comment: [place]: M Performed By: #### L500.0140 0, L500.63180, L500.20180, L500.54343, L550.95448 ####[facility] WETCXTKMTY7713 [place], [place] [address]Zd# [phone] Protein 6.7 6.0-8.5 GM/DL Normal 12-06-2016 [facility] (59076) Comment: Order Comment: [place]: M Performed By: #### L500.0140 0, L500.31705, L500.61094, L500.14109, L550.19450 ####[facility] FOFIXFEOPR6267 [place], [place] [address]Bk# [phone] SGOT (AST) 37 8-34 U/L High 12-06-2016 [facility] (16809) Comment: Order Comment: [place]: M Performed By: #### L500.0140 0, L500.27319, L500.01955, L500.74023, L550.12618 ####[facility] [id number] [place], [place] [address]Pg# [phone] Sodium 138 136-145 MMOL/L Normal 12-06-2016 [facility] (87681) Comment: Order Comment: [place]: M Performed By: #### L500.0140 0, L500.80959, L500.12483, L500.95590, L550.12785 ####[address] [place], [place] [address]Os# [phone] Urea nitrogen 17 7-26 MG/DL Normal 12-06-2016 [facility] (22306) Comment: Order Comment: [place]: M Performed By: #### L500.0140 0, L500.08405, L500.53366, L500.40148, L550.52076 ####[address] [address]Wk# [phone] cbc w/diff on 12-06 EOS ABS 0.29 0-0.5 K/CU MM Normal 12-06-2016 [facility] (63801) Comment: Order Comment: [place]: M Performed By: #### L500.0140 0, L500.61397, L500.47494, L500.38502, L550.57650 ####[address] [place], [place] [address]Fl# [phone] Eosinophils/100 leukocytes 4.0 0-5 % Normal [facility] (29902) Comment: Order Comment: [place]: M Performed By: #### L500.0140 0, L500.20722, L500.11363, L500.75594, L550.49491 ####[facility] [place], [place] [address]Cx# [phone] Lymphocytes 3.96 0.9-4.4 K/CU MM Normal 12-06-2016 [facility] (32341) Comment: Order Comment: [place]: M Performed By: #### L500.0140 0, L500.46890, L500.16448, L500.76922, L550.66874 ####[address] [address]Ti# [phone] Lymphocytes PRESENT Normal 12-06-2016 [facility] (29566) Comment: Order Comment: [place]: M Performed By: #### L500.0140 0, L500.88821, L500.83257, L500.75593, L550.94290 ####[address] [address]Uy# [phone] Lymphocytes/100 leukocytes 55.0 20-40 % High [facility] (90156) Comment: Order Comment: [place]: M Performed By: #### L500.0140 0, L500.88524, L500.41497, L500.36282, L550.72589 ####[address] [address]Vt# [phone] MONO ABS 0.72 0.1-1.1 K/CU MM Normal 12-06-2016 [facility] (06852) Comment: Order Comment: [place]: M Performed By: #### L500.0140 0, L500.10821, L500.91145, L500.72741, L550.87763 ####[address] [address]Aa# [phone] Monocytes/100 leukocytes 10.0 2-10 % Normal 12-06 [facility] (38339) Comment: Order Comment: [place]: M Performed By: #### L500.0140 0, L500.77823, L500.40048, L500.54498, L550.38697 ####[address] [address]Yj# [phone] Neutrophils 2.23 2.0-8.3 K/CU MM Normal 12-06-2016 [facility] (39349) Comment: Order Comment: [place]: M Performed By: #### L500.0140 0, L500.45027, L500.11718, L500.40480, L550.99083 ####[address] [address]Tg# [phone] Neutrophils/100 WBC Auto (Bld) 31.0 45-75 % Low 12-06-2016 [facility] (00 000) Comment: Order Comment: [place]: M Performed By: #### L500.0140 0, L500.75021, L500.21857, L500.53188, L550.20163 ####[facility] NWWBCLNAUF4212 [place], [place] [address]Fo# [phone] PLT EST ADEQUATE Normal 12-06-2016 [facility] (70623) Comment: Order Comment: [place]: M Performed By: #### L500.0140 0, L500.57923, L500.19230, L500.26660, L550.00424 ####[facility] YSDYMJGHWQ5103 [place], [place] [address]Yf# [phone] POLY 1+ Normal 12-06-2016 [facility] (97685) Comment: Order Comment: [place]: M Performed By: #### L500.0140 0, L500.24768, L500.98553, L500.46067, L550.02478 ####[facility] [id number] [place], [place] [address]Vf# [phone] Erythrocyte distribution 13.2 11-14.5 % Normal 12-[address] [facility] width Auto Ratio (RBC) [place] (19955) Comment: Order Comment: [place]: M Performed By: #### L500.0140 0, L500.45582, L500.83020, L500.22945, L550.61167 ####[facility] VVGGRXWQPO6148 [place], [place] [address]Bj# [phone] Erythrocytes (RBC) 0.0 Less than 1 % Normal 7 [facility] (73039) Comment: Order Comment: [place]: M Performed By: #### L500.0140 0, L500.81797, L500.92162, L500.91645, L550.42214 ####[facility] [id number] [place], [place] [address]Fq# [phone] Erythrocytes (RBC) 4.25 4.50-6.00 M/CU MM Low 12-06-2016 [facility] (52317) Comment: Order Comment: [place]: M Performed By: #### L500.0140 0, L500.80001, L500.57525, L500.75092, L550.27563 ####[facility] UWBFXYYKCT6075 [place], [place] [address]Uc# [phone] Hematocrit (HCT) 36.3 41.0-53.0 % Low 12-06-2016 [facility] (47962) Comment: Order Comment: [place]: M Performed By: #### L500.0140 0, L500.74180, L500.47149, L500.04702, L550.31625 ####[facility] VDETLCWBJH5181 [place], [place] [address]Du# [phone] Hemoglobin mass conc (Bld) 12.1 13.5-17.5 G/DL Low [facility] (00 000) Comment: Order Comment: [place]: M Performed By: #### L500.0140 0, L500.82811, L500.46605, L500.43506, L550.83251 ####[facility] XLUUTANVLG5851 [place], [place] [address]Zk# [phone] MCHC mass conc (RBC) 33.3 32.0-36.0 GM/DL Normal 7 [facility] (00 000) Comment: Order Comment: [place]: M Performed By: #### L500.0140 0, L500.29648, L500.39282, L500.57645, L550.67685 ####[facility] [id number] [place], [place] [address]Pd# [phone] MCV 85.4 80.0-99.0 fl Normal 12-06-2016 [facility] (70278) Comment: Order Comment: [place]: M Performed By: #### L500.0140 0, L500.90457, L500.29928, L500.56551, L550.29866 ####[facility] [id number] [place], [place] [address]Gf# [phone] Platelet mean volume (PMV) 9.1 9.4-12.4 fL Low [facility] (72270) Comment: Order Comment: [place]: M Performed By: #### L500.0140 0, L500.79916, L500.53079, L500.97026, L550.31861 ####[facility] [id number] [place], [place] [address]El# [phone] Platelets 259 150-450 K/CU MM Normal 12-06-2016 [facility] (38467) Comment: Order Comment: [place]: M Performed By: #### L500.0140 0, L500.47468, L500.94725, L500.99327, L550.36019 ####[facility] [id number] [place], [place] [address]Ek# [phone] WBC (Leukocytes) 7.2 4.5-11.0 K/CU MM Normal 12-06-2016 [facility] (55539) Comment: Order Comment: [place]: M Performed By: #### L500.0140 0, L500.81828, L500.91656, L500.74500, L550.69130 ####[facility] [id number] [place], [place] [address]Qk# [phone] hcv genotyping on 2 HCV GENOTYPE TNP Normal 11-26-2016 [facility] (10114) Comment: Order Comment: [place]: M Result Comment: Specimen has insufficient hepatitis C virus RNA to obtaingenotyping results. Th is genotyping assay should only beused for known HCV positive patients with H CV RNA levelsabove 1000 IU/mL. Performed By: #### L500.0140 0, L500.97977, L500.68955, L500.33188, L550.53402 ####[facility] [id number] [place], [place] [address]Yp# [phone] NOTE HCV GTYPE: TNP Normal 11-26-2016 [facility] (99946) Comment: Order Comment: [place]: M Result Comment: This test wa s developed and its performance characteristicsdetermined by [facility]. It has not been cleared or approvedby the U.S. Food and Drug Admin istration.The FDA has determined that such clearance or approval isnot necessary. This test is used for clinical purposes. Itshould not be re garded as investigational or for research.Performed At: [facility] [address] [id number] Joaquín Dougherty [id number] Performed By: #### L500.0140 0, L500.95212, L500.68181, L500.69996, L550.49009 ####[facility] [id number] [place], [place] [address]Dz# [phone] gfr est on IF AMER Greater than 60 Normal 11-27-[address] [place] [address] ([address]) Comment: Order Comment: [place]: M Performed By: #### L500.0140 0, L500.62551, L500.56886, L500.87845, L550.07984 ####[facility] [id number] [place], [place] [address]Rc# [phone] IF non-AFR AMER Greater than 60 Normal 11-27-[address] [place] [address] ([address]) Comment: Order Comment: [place]: M Performed By: #### L500.0140 0, L500.73174, L500.31104, L500.79298, L550.18684 ####[facility] [id number] [place], [place] [address]Ic# [phone] cmp on 2016-11-26 Alanine aminotransferase (ALT) 37 13-61 IU/L Normal 11-26-2016 [facility] (00 000) Comment: Order Comment: [place]: M Performed By: #### L500.0140 0, L500.44562, L500.65405, L500.31190, L550.86605 ####[facility] [id number] [place], [place] [address]Sg# [phone] Albumin 2.9 3.2-5.0 GM/DL Low 11-26-2016 [facility] (74853) Comment: Order Comment: [place]: M Performed By: #### L500.0140 0, L500.72834, L500.48987, L500.63176, L550.94178 ####[facility] HOSP[facility] [id number] [place], [place] [address]Em# [phone] Albumin/Globulin Ratio 0.9 0.8-2.0 {ratio} Normal 017 [facility] (00 000) Comment: Order Comment: [place]: M Performed By: #### L500.0140 0, L500.53494, L500.34775, L500.66188, L550.14204 ####[facility] JJXWTALYSH6034 [place], [place] [address]Dq# [phone] ALK PHOS 127 45-117 U/L High 11-26-2016 [facility] (51120) Comment: Order Comment: [place]: M Performed By: #### L500.0140 0, L500.96076, L500.06873, L500.07531, L550.93128 ####[facility] COBDMKIGKY8669 [place], [place] [address]Sq# [phone] Anion gap 7 5-16 MMOL/L Normal 11-26-2016 [facility] (66913) Comment: Order Comment: [place]: M Performed By: #### L500.0140 0, L500.28320, L500.56665, L500.47466, L550.33207 ####[facility] [id number] [place], [place] [address]Bx# [phone] BILI TOTAL 0.3 0.2-1.0 MG/DL Normal 11-26-2016 [facility] (41829) Comment: Order Comment: [place]: M Performed By: #### L500.0140 0, L500.86947, L500.66169, L500.84279, L550.63738 ####[facility] HJMPMMXSFT0291 [place], [place] [address]Ys# [phone] BUN/Creatinine Ratio 12 15-24 mg/mg Low 7 [facility] (86479) Comment: Order Comment: [place]: M Performed By: #### L500.0140 0, L500.98642, L500.39367, L500.01462, L550.40069 ####[facility] ZZLRRMGVPW4812 [place], [place] [address]Ba# [phone] Calcium 8.5 8.5-10.1 MG/DL Normal 11-26-2016 [facility] (93448) Comment: Order Comment: [place]: M Performed By: #### L500.0140 0, L500.99582, L500.78524, L500.14951, L550.04856 ####[facility] KMRYGLONPN9503 [place], [place] [address]Av# [phone] Chloride 105 98-107 MMOL/L Normal 11-26-2016 [facility] (26367) Comment: Order Comment: [place]: M Performed By: #### L500.0140 0, L500.29480, L500.44584, L500.20046, L550.68185 ####[facility] JNQBUHPUSP8911 [place], [place] [address]Rq# [phone] CO2 28 21-32 MMOL/L Normal 11-26-2016 [facility] (39314) Comment: Order Comment: [place]: M Performed By: #### L500.0140 0, L500.47930, L500.40921, L500.23977, L550.83690 ####[facility] HQKEXXJMNR2839 [place], [place] [address]Ft# [phone] Creatinine 0.646 0.670-1.170 MG/DL Low 11-26-2016 [facility] (91259) Comment: Order Comment: [place]: M Result Comment: Patients rec eiving either N-Acetylcysteine (NAC) orMetamizole prior to venipu ncture, may have falsely depressedresults. Performed By: #### L500.0140 0, L500.37191, L500.74893, L500.17989, L550.10601 ####[facility] IQMIUCLGLN2996 [place], [place] [address]Uo# [phone] Globulin 3.1 2.2-4.2 GM/DL Normal 11-26-2016 [facility] (08757) Comment: Order Comment: [place]: M Performed By: #### L500.0140 0, L500.07798, L500.22745, L500.81369, L550.96505 ####[facility] PQBQUTCMRT1277 [place], [place] [address]Hv# [phone] Glucose mass conc 91 70-100 MG/DL Normal 11-26-2016 [facility] (90449) Comment: Order Comment: [place]: M Result Comment: 43-440-Mpuzz l Fasting; 127-453-Rgycdadf Fasting; greaterthan 126 on more than one result- Diabetes. ADA guidelines Performed By: #### L500.0140 0, L500.10889, L500.99278, L500.07103, L550.10153 ####[facility] WWDISFXLUZ2113 [place], [place] [address]Ie# [phone] Potassium molar conc 4.0 3.5-5.1 MMOL/L Normal 7 [facility] (06889) Comment: Order Comment: [place]: M Performed By: #### L500.0140 0, L500.24861, L500.02298, L500.08641, L550.38107 ####[facility] NBTNSTUONE5924 [place], [place] [address]Mb# [phone] Protein 6.0 6.0-8.5 GM/DL Normal 11-26-2016 [facility] (80839) Comment: Order Comment: [place]: M Performed By: #### L500.0140 0, L500.67812, L500.13969, L500.21314, L550.72273 ####[facility] PSJRXXNLNF5002 [place], [place] [address]Wm# [phone] SGOT (AST) 27 8-34 U/L Normal 11-26-2016 [facility] (13406) Comment: Order Comment: [place]: M Performed By: #### L500.0140 0, L500.34253, L500.33936, L500.23129, L550.45177 ####[facility] ATGYQJAGCQ1824 [place], [place] [address]Co# [phone] Sodium 140 136-145 MMOL/L Normal 11-26-2016 [facility] (57056) Comment: Order Comment: [place]: M Performed By: #### L500.0140 0, L500.07860, L500.03270, L500.96738, L550.52257 ####[facility] EGPDFIKMXR5146 [place], [place] [address]Zl# [phone] Urea nitrogen 8 7-26 MG/DL Normal 11-26-2016 [facility] (66060) Comment: Order Comment: [place]: M Performed By: #### L500.0140 0, L500.02817, L500.03498, L500.44581, L550.00495 ####[facility] QCTPZODYEZ0165 [place], [place] [address]Zu# [phone] cbc w/diff on 11-26 BASO ABS 0.10 0-0.2 K/CU MM Normal 11-26-2016 [facility] (79557) Comment: Order Comment: [place]: M Performed By: #### L500.0140 0, L500.03888, L500.28700, L500.64620, L550.61626 ####[facility] CFJJXZHCKZ7173 [place], [place] [address]Nx# [phone] Basophils/100 WBC Auto (Bld) 1.0 0-2 % Normal 0 11-26-2016 [facility] (05018) Comment: Order Comment: [place]: M Performed By: #### L500.0140 0, L500.56325, L500.10097, L500.04868, L550.05988 ####[address] [address]Oq# [phone] EOS ABS 0.50 0-0.5 K/CU MM Normal 11-26-2016 [facility] (94494) Comment: Order Comment: [place]: M Performed By: #### L500.0140 0, L500.42401, L500.09464, L500.93276, L550.42468 ####[address] [address]Ca# [phone] Eosinophils/100 leukocytes 11.0 0-5 % High [facility] (91565) Comment: Order Comment: [place]: M Performed By: #### L500.0140 0, L500.80262, L500.61530, L500.96618, L550.19896 ####[address] [address]Ce# [phone] IMMATR GRAN ABS 0.00 Less than 2 K/CU MM Normal 11-26-2016 [facility] (00 000) Comment: Order Comment: [place]: M Performed By: #### L500.0140 0, L500.50353, L500.51553, L500.10313, L550.40511 ####[address] [address]Zw# [phone] IMMATURE GRAN % 0.8 Less than 2 % Normal 11-26-2016 [facility] (53582) Comment: Order Comment: [place]: M Performed By: #### L500.0140 0, L500.75913, L500.97730, L500.37689, L550.31096 ####[facility] [place], [place] [address]Io# [phone] Lymphocytes PRESENT Normal 11-26-2016 [facility] (75277) Comment: Order Comment: [place]: M Performed By: #### L500.0140 0, L500.23924, L500.80593, L500.30038, L550.42748 ####[address] [address]Rn# [phone] Lymphocytes 2.30 0.9-4.4 K/CU MM Normal 11-26-2016 [facility] (12436) Comment: Order Comment: [place]: M Performed By: #### L500.0140 0, L500.97141, L500.23983, L500.61786, L550.58450 ####[address] [address]Da# [phone] Lymphocytes/100 leukocytes 47.9 20-40 % High [facility] (11144) Comment: Order Comment: [place]: M Performed By: #### L500.0140 0, L500.25239, L500.82900, L500.04398, L550.65855 ####[address] [place], [place] [address]Hc# [phone] MONO ABS 0.30 0.1-1.1 K/CU MM Normal 11-26-2016 [facility] (83349) Comment: Order Comment: [place]: M Performed By: #### L500.0140 0, L500.99483, L500.27375, L500.27211, L550.38249 ####[address] [place], [place] [address]Vx# [phone] Monocytes/100 leukocytes 7.0 2-10 % Normal 11-26 [facility] (27612) Comment: Order Comment: [place]: M Performed By: #### L500.0140 0, L500.05634, L500.45543, L500.03693, L550.77333 ####[facility] HLYGJAOBLH2238 [place], [place] [address]Wc# [phone] Neutrophils 1.60 2.0-8.3 K/CU MM Low 11-26-2016 [facility] (40550) Comment: Order Comment: [place]: M Performed By: #### L500.0140 0, L500.59344, L500.48925, L500.96267, L550.92426 ####[facility] FUQXGAEVIO6593 [place], [place] [address]Hf# [phone] Neutrophils/100 WBC Auto (Bld) 32.3 45-75 % Low 11-26-2016 [facility] (00 000) Comment: Order Comment: [place]: M Performed By: #### L500.0140 0, L500.52083, L500.88767, L500.26166, L550.01918 ####[facility] ITBWTDHHJK0055 [place], [place] [address]Kc# [phone] PLT EST SLT DECREASED Normal 11-26-2016 [facility] (18171) Comment: Order Comment: [place]: M Performed By: #### L500.0140 0, L500.63065, L500.82417, L500.28206, L550.32590 ####[facility] EVHRZFIMVQ1823 [place], [place] [address]Ss# [phone] POLY 1+ Normal 11-26-2016 [facility] (48519) Comment: Order Comment: [place]: M Performed By: #### L500.0140 0, L500.93621, L500.28731, L500.31442, L550.83982 ####[facility] WRNCSUEACC4786 [place], [place] [address]Dm# [phone] Erythrocyte distribution 12.9 11-14.5 % Normal 11-[address] [facility] width Auto Ratio (RBC) [place] (36331) Comment: Order Comment: [place]: M Performed By: #### L500.0140 0, L500.28518, L500.82257, L500.43312, L550.35812 ####[facility] KMTIPXTNLS0055 [place], [place] [address]Zt# [phone] Erythrocytes (RBC) 3.81 4.50-6.00 M/CU MM Low 11-26-2016 [facility] (66061) Comment: Order Comment: [place]: M Performed By: #### L500.0140 0, L500.10005, L500.12768, L500.71797, L550.71418 ####[facility] ZYSOZUKPSN8813 [place], [place] [address]Zq# [phone] Erythrocytes (RBC) 0.0 Less than 1 % Normal 7 [facility] (77182) Comment: Order Comment: [place]: M Performed By: #### L500.0140 0, L500.89242, L500.18175, L500.08762, L550.22169 ####[facility] NHXVZJPHKR0026 [place], [place] [address]Yt# [phone] Hematocrit (HCT) 31.9 41.0-53.0 % Low 11-26-2016 [facility] (93978) Comment: Order Comment: [place]: M Performed By: #### L500.0140 0, L500.31680, L500.63776, L500.33735, L550.15752 ####[facility] XYOZJJIMBA4267 [place], [place] [address]Oh# [phone] Hemoglobin mass conc (Bld) 11.0 13.5-17.5 G/DL Low [facility] (00 000) Comment: Order Comment: [place]: M Performed By: #### L500.0140 0, L500.08061, L500.06734, L500.98264, L550.30243 ####[facility] XMLRSBGZWO9848 [place], [place] [address]Qu# [phone] MCHC mass conc (RBC) 34.5 32.0-36.0 GM/DL Normal 7 [facility] (00 000) Comment: Order Comment: [place]: M Performed By: #### L500.0140 0, L500.59169, L500.55117, L500.69906, L550.29210 ####[facility] FQTEDTHIQV1302 [place], [place] [address]Bl# [phone] MCV 83.7 80.0-99.0 fl Normal 11-26-2016 [facility] (72256) Comment: Order Comment: [place]: M Performed By: #### L500.0140 0, L500.07224, L500.93157, L500.70191, L550.29842 ####[address] [place], [place] [address]Wm# [phone] Platelet mean volume (PMV) 9.3 9.4-12.4 fL Low [facility] (00854) Comment: Order Comment: [place]: M Performed By: #### L500.0140 0, L500.57921, L500.25011, L500.37357, L550.19202 ####[facility] BRSMJICEZS2588 [place], [place] [address]Zn# [phone] Platelets 148 150-450 K/CU MM Low 11-26-2016 [facility] (66314) Comment: Order Comment: [place]: M Performed By: #### L500.0140 0, L500.57423, L500.68699, L500.48623, L550.73061 ####[facility] LPNYZWYNBM5733 [place], [place] [address]Jr# [phone] WBC (Leukocytes) 4.8 4.5-11.0 K/CU MM Normal 11-26-2016 [facility] (52806) Comment: Order Comment: [place]: M Performed By: #### L500.0140 0, L500.64049, L500.12976, L500.55087, L550.18842 ####[facility] CNTPUJDWJB3402 [place], [place] [address]Nd# [phone] gfr est on IF AMER Greater than 60 Normal 11-25-[address] [place] [address] (70[address]) Comment: Order Comment: [place]: M Performed By: #### L500.0140 0, L500.50381, L500.87997, L500.63008, L550.79710 ####[facility] UZJXECSSDN6437 [place], [place] [address]Tv# [phone] IF non-AFR AMER Greater than 60 Normal 11-25-[address] [place] [address] ([address]) Comment: Order Comment: [place]: M Performed By: #### L500.0140 0, L500.89663, L500.14756, L500.28953, L550.95445 ####[facility] HTHHHMHBDC5950 [place], [place] [address]Yt# [phone] cmp on 2016-11-24 Alanine aminotransferase (ALT) 36 13-61 IU/L Normal 11-24-2016 [facility] (00 000) Comment: Order Comment: [place]: M Performed By: #### L500.0140 0, L500.67428, L500.91196, L500.54906, L550.75124 ####[facility] BXYFRHFDKU3366 [place], [place] [address]Yg# [phone] Albumin 3.1 3.2-5.0 GM/DL Low 11-24-2016 [facility] (42068) Comment: Order Comment: [place]: M Performed By: #### L500.0140 0, L500.41029, L500.69057, L500.05964, L550.39655 ####[facility] DOSZSYRXHS7241 [place], [place] [address]Fy# [phone] Albumin/Globulin Ratio 1.0 0.8-2.0 {ratio} Normal [address] [place] [address] (00 000) Comment: Order Comment: [place]: M Performed By: #### L500.0140 0, L500.25374, L500.89390, L500.71672, L550.18465 ####[facility] CMCSMNXNPX9552 [place], [place] [address]Dz# [phone] ALK PHOS 136 45-117 U/L High 11-24-2016 [facility] (39442) Comment: Order Comment: [place]: M Performed By: #### L500.0140 0, L500.63532, L500.63445, L500.87002, L550.51054 ####[facility] HRTPLDALWX9744 [place], [place] [address]Cq# [phone] Anion gap 6 5-16 MMOL/L Normal 11-24-2016 [facility] (71406) Comment: Order Comment: [place]: M Performed By: #### L500.0140 0, L500.29850, L500.76450, L500.29529, L550.15085 ####[facility] GDFOEVODPT0341 [place], [place] [address]Kn# [phone] BILI TOTAL 0.4 0.2-1.0 MG/DL Normal 11-24-2016 [facility] (99584) Comment: Order Comment: [place]: M Performed By: #### L500.0140 0, L500.85498, L500.17162, L500.58943, L550.46381 ####[facility] JSFTQDNUQC1226 [place], [place] [address]Rp# [phone] BUN/Creatinine Ratio 12 15-24 mg/mg Low 7 [facility] (19463) Comment: Order Comment: [place]: M Performed By: #### L500.0140 0, L500.45694, L500.80149, L500.32056, L550.45043 ####[facility] BDSFTIYGBD9601 [place], [place] [address]Ky# [phone] Calcium 8.6 8.5-10.1 MG/DL Normal 11-24-2016 [facility] (47532) Comment: Order Comment: [place]: M Performed By: #### L500.0140 0, L500.33820, L500.58995, L500.93808, L550.52462 ####[facility] DJVWULUBFY4173 [place], [place] [address]Ks# [phone] Chloride 103 98-107 MMOL/L Normal 11-24-2016 [facility] (49324) Comment: Order Comment: [place]: M Performed By: #### L500.0140 0, L500.36176, L500.45614, L500.93304, L550.56381 ####[facility] SXWVIMNXGQ2852 [place], [place] [address]Vg# [phone] CO2 30 21-32 MMOL/L Normal 11-24-2016 [facility] (48327) Comment: Order Comment: [place]: M Performed By: #### L500.0140 0, L500.94471, L500.77048, L500.45063, L550.09316 ####[facility] HENMPOSEDZ4251 [place], [place] [address]Vm# [phone] Creatinine 0.992 0.670-1.170 MG/DL Normal 11-24-2016 [facility] (09644) Comment: Order Comment: [place]: M Result Comment: Patients rec eiving either N-Acetylcysteine (NAC) orMetamizole prior to venipu ncture, may have falsely depressedresults. Performed By: #### L500.0140 0, L500.12515, L500.00119, L500.40460, L550.26899 ####[facility] TLFTUAWSKD4369 [place], [place] [address]Up# [phone] Globulin 3.2 2.2-4.2 GM/DL Normal 11-24-2016 [facility] (76158) Comment: Order Comment: [place]: M Performed By: #### L500.0140 0, L500.58677, L500.28395, L500.69570, L550.73535 ####[facility] NMEPLVXVFG9340 [place], [place] [address]Gn# [phone] Glucose mass conc 99 70-100 MG/DL Normal 11-24-2016 [facility] (22824) Comment: Order Comment: [place]: M Result Comment: 76-233-Dhnrk l Fasting; 731-757-Vfgybfck Fasting; greaterthan 126 on more than one result- Diabetes. ADA guidelines Performed By: #### L500.0140 0, L500.46952, L500.98155, L500.99545, L550.78800 ####[facility] UNXLLYOLBS0429 [place], [place] [address]Bg# [phone] Potassium molar conc 4.0 3.5-5.1 MMOL/L Normal 7 [facility] (50174) Comment: Order Comment: [place]: M Performed By: #### L500.0140 0, L500.32070, L500.84003, L500.39901, L550.36103 ####[facility] EYWLGDRZEG8254 [place], [place] [address]Ic# [phone] Protein 6.3 6.0-8.5 GM/DL Normal 11-24-2016 [facility] (65742) Comment: Order Comment: [place]: M Performed By: #### L500.0140 0, L500.84804, L500.20666, L500.67167, L550.98117 ####[facility] HMTNGVSVII0600 [place], [place] [address]Eb# [phone] SGOT (AST) 27 8-34 U/L Normal 11-24-2016 [facility] (67186) Comment: Order Comment: [place]: M Performed By: #### L500.0140 0, L500.47064, L500.99645, L500.34123, L550.92602 ####[facility] NOQLBXSMER4038 [place], [place] [address]Oc# [phone] Sodium 139 136-145 MMOL/L Normal 11-24-2016 [facility] (09614) Comment: Order Comment: [place]: M Performed By: #### L500.0140 0, L500.62170, L500.13797, L500.80517, L550.34307 ####[facility] ATBSJYTINJ2913 [place], [place] [address]Eo# [phone] Urea nitrogen 12 7-26 MG/DL Normal 11-24-2016 [facility] (22943) Comment: Order Comment: [place]: M Performed By: #### L500.0140 0, L500.36559, L500.91132, L500.10540, L550.16417 ####[address] [place], [place] [address]Ug# [phone] cbc w/diff on 11-24 BAND % 20.0 0-7 % High 11-24-2016 [facility] (95732) Comment: Order Comment: [place]: M Performed By: #### L500.0140 0, L500.70742, L500.15600, L500.70098, L550.47192 ####[facility] [place], [place] [address]Iz# [phone] BAND ABS 0.90 K/CU MM Normal 11-24-2016 [facility] (83357) Comment: Order Comment: [place]: M Performed By: #### L500.0140 0, L500.55145, L500.91351, L500.20878, L550.87798 ####[facility] RQOGKUXZBJ4458 [place], [place] [address]Au# [phone] EOS ABS 0.50 0-0.5 K/CU MM Normal 11-24-2016 [facility] (96581) Comment: Order Comment: [place]: M Performed By: #### L500.0140 0, L500.17570, L500.07717, L500.95773, L550.16165 ####[facility] NUZWSSEQCQ9202 [place], [place] [address]Ob# [phone] Eosinophils/100 leukocytes 11.0 0-5 % High [facility] (22542) Comment: Order Comment: [place]: M Performed By: #### L500.0140 0, L500.54496, L500.39458, L500.89036, L550.84696 ####[facility] [id number] [place] [address]Zn# [phone] Lymphocytes PRESENT Normal 11-24-2016 [facility] (25213) Comment: Order Comment: [place]: M Performed By: #### L500.0140 0, L500.34233, L500.74077, L500.82780, L550.97353 ####[address] [address]Cm# [phone] Lymphocytes 1.98 0.9-4.4 K/CU MM Normal 11-24-2016 [facility] (49481) Comment: Order Comment: [place]: M Performed By: #### L500.0140 0, L500.05456, L500.63571, L500.42697, L550.72882 ####[address] [place], [place] [address]Dm# [phone] Lymphocytes/100 leukocytes 44.0 20-40 % High [facility] (27677) Comment: Order Comment: [place]: M Performed By: #### L500.0140 0, L500.37917, L500.51524, L500.30533, L550.86012 ####[address] [address]Cg# [phone] MONO ABS 0.27 0.1-1.1 K/CU MM Normal 11-24-2016 [facility] (62292) Comment: Order Comment: [place]: M Performed By: #### L500.0140 0, L500.25433, L500.03307, L500.26556, L550.77877 ####[facility] EMTHJFGYCS5206 [place], [place] [address]Zd# [phone] Monocytes/100 leukocytes 6.0 2-10 % Normal 11-24 [facility] (39274) Comment: Order Comment: [place]: M Performed By: #### L500.0140 0, L500.57848, L500.77300, L500.45386, L550.41898 ####[address] [place], [place] [address]Sb# [phone] Neutrophils 0.86 2.0-8.3 K/CU MM Low 11-24-2016 [facility] (90485) Comment: Order Comment: [place]: M Performed By: #### L500.0140 0, L500.75930, L500.83155, L500.95455, L550.19382 ####[address] [place], [place] [address]Ot# [phone] Neutrophils/100 WBC Auto (Bld) 19.0 45-75 % Low 11-24-2016 [facility] (00 000) Comment: Order Comment: [place]: M Performed By: #### L500.0140 0, L500.90981, L500.95564, L500.79760, L550.40755 ####[facility] [id number] [place], [place] [address]Kn# [phone] PLT EST ADEQUATE Normal 11-24-2016 [facility] (25423) Comment: Order Comment: [place]: M Performed By: #### L500.0140 0, L500.89200, L500.81888, L500.74436, L550.23938 ####[facility] [id number] [place], [place] [address]Va# [phone] POLY 1+ Normal 11-24-2016 [facility] (05347) Comment: Order Comment: [place]: M Performed By: #### L500.0140 0, L500.38509, L500.20974, L500.50589, L550.39546 ####[facility] [id number] [place], [place] [address]Qi# [phone] Erythrocyte distribution 13.1 11-14.5 % Normal 11-[address] [facility] width Auto Ratio (RBC) [place] (36111) Comment: Order Comment: [place]: M Performed By: #### L500.0140 0, L500.83237, L500.80909, L500.87270, L550.04251 ####[facility] [id number] [place], [place] [address]Oy# [phone] Erythrocytes (RBC) 3.85 4.50-6.00 M/CU MM Low 11-24-2016 [facility] (73523) Comment: Order Comment: [place]: M Performed By: #### L500.0140 0, L500.07971, L500.30266, L500.71960, L550.20462 ####[facility] [id number] [place], [place] [address]Ce# [phone] Erythrocytes (RBC) 0.0 Less than 1 % Normal [address] [place] [address] ([address]) Comment: Order Comment: [place]: M Performed By: #### L500.0140 0, L500.43626, L500.21348, L500.02350, L550.45850 ####[facility] [id number] [place], [place] [address]Tc# [phone] Hematocrit (HCT) 33.0 41.0-53.0 % Low 11-24-2016 [facility] (96215) Comment: Order Comment: [place]: M Performed By: #### L500.0140 0, L500.17066, L500.56305, L500.03482, L550.50731 ####[facility] [id number] [place], [place] [address]Bf# [phone] Hemoglobin mass conc (Bld) 11.1 13.5-17.5 G/DL Low [facility] (00 000) Comment: Order Comment: [place]: M Performed By: #### L500.0140 0, L500.79147, L500.17365, L500.86522, L550.50978 ####[facility] [id number] [place], [place] [address]At# [phone] MCHC mass conc (RBC) 33.6 32.0-36.0 GM/DL Normal 201 7 [facility] ( 000) Comment: Order Comment: [place]: M Performed By: #### L500.0140 0, L500.18353, L500.35028, L500.82830, L550.51986 ####[facility] [id number] [place], [place] [address]Gu# [phone] MCV 85.7 80.0-99.0 fl Normal 11-24-2016 [facility] (96616) Comment: Order Comment: [place]: M Performed By: #### L500.0140 0, L500.42088, L500.68220, L500.92523, L550.53415 ####[facility] [id number] [place], [place] [address]Vy# [phone] Platelet mean volume (PMV) 9.4 9.4-12.4 fL Normal [facility] ( 000) Comment: Order Comment: [place]: M Performed By: #### L500.0140 0, L500.75459, L500.49023, L500.40174, L550.28364 ####[facility] [id number] [place], [place] [address]Ji# [phone] Platelets 163 150-450 K/CU MM Normal 11-24-2016 [facility] (71967) Comment: Order Comment: [place]: M Performed By: #### L500.0140 0, L500.87435, L500.78013, L500.93755, L550.16461 ####[facility] YNDRNYYORS2926 [place], [place] [address]Et# [phone] WBC (Leukocytes) 4.5 4.5-11.0 K/CU MM Normal 11-24-2016 [facility] [place] (37751) Comment: Order Comment: [place]: M Performed By: #### L500.0140 0, L500.15597, L500.60573, L500.74452, L550.81165 ####[facility] [id number] [place], [place] [address]Nf# [phone] wound culture on 13-11-27 WOUND CULTURE GRAM STAIN RARE WBC'S NO ORGANISMS N ormal 11-23-2016 [facility] SEENORGANISM 1: [facility] AUREUS,METHICILLIN ( 66154) RESISQUANTITATION FEWSTAPH AUREUS,METHICILLIN RESIS: REACTION AMPICILLIN >8 R AMP/SULBACTAM (UNASYN) 16/8 R AUGMENTIN (AMOX/K CLVULANATE) <4/2 R CEFAZOLIN <8 R CHLORAMPHENICOL <8 S CLINDAMYCIN <0.5 R ERYTHROMYCIN >4 R GENTAMICIN <4 S IMIPENEM <4 R LINEZOLID 2 S OXACILLIN >2 R PENICILLIN >8 R RIFAMPIN <1 S TETRACYCLINE <4 S TRIMETH/SULFA <0.5/9.5 S VANCOMYCIN 2 S LEVOFLOXACIN <2 S MEROPENEM <4 R DAPTOMYCIN <0.5 S MOXIFLOXACIN <2 SORGANISM 2: STAPHYLOCOCCUS COAGULASE NEGQUANTITATION RAREID TO FOLLOW SENSITIVITY NOT DONE ; NORMAL SKIN FLORAORGANISM 3: GAMMA HEMOLYTIC STREPTOCOCCUSQUANTITATION FEWID TO FOLLOW NOT VIABLE FOR SENSITIVITY ; NORMAL SKIN KRISHNA Comment: Order Comment: [place]: M Performed By: #### L500.0140 0, L500.87872, L500.52483, L500.71015, L550.04666 ####[facility] [id number] [place], [place] [address]Vx# [phone] microbiology: (p) acid fast bact cult/sm on 2016-11-23 AFBCS . 11-23-11-23-2 017 [facility] (97609) gfr est on IF AMER Greater than 60 Normal 11-23-[address] [place] [address] (57589) Comment: Order Comment: [place]: M Performed By: #### L500.0140 0, L500.51032, L500.14044, L500.22811, L550.94172 ####[facility] [id number] [place], [place] [address]Kz# [phone] IF non-AFR AMER Greater than 60 Normal 11-23-[address] [place] [address] (54681) Comment: Order Comment: [place]: M Performed By: #### L500.0140 0, L500.99916, L500.05682, L500.58402, L550.34752 ####[facility] [id number] [place], [place] [address]Ht# [phone] cmp on 2016-11-22 Alanine aminotransferase (ALT) 37 13-61 IU/L Normal 11-22-2016 [facility] (00 000) Comment: Order Comment: [place]: M Performed By: #### L500.0140 0, L500.69675, L500.35887, L500.10083, L550.99802 ####[facility] [id number] [place], [place] [address]Tk# [phone] Albumin 3.4 3.2-5.0 GM/DL Normal 11-22-2016 [facility] (79795) Comment: Order Comment: [place]: M Performed By: #### L500.0140 0, L500.93571, L500.15575, L500.13817, L550.39914 ####[facility] QOPZXRHAQF4556 [place], [place] [address]Dp# [phone] Albumin/Globulin Ratio 1.0 0.8-2.0 {ratio} Normal [address] [place] [address] (00 000) Comment: Order Comment: [place]: M Performed By: #### L500.0140 0, L500.45803, L500.66617, L500.91631, L550.45961 ####[facility] KWUGANZXFO7942 [place], [place] [address]Rz# [phone] ALK PHOS 148 45-117 U/L High 11-22-2016 [facility] (37502) Comment: Order Comment: [place]: M Performed By: #### L500.0140 0, L500.34553, L500.94054, L500.94420, L550.00642 ####[facility] BLEUDBHGMS7839 [place], [place] [address]Lu# [phone] Anion gap 5 5-16 MMOL/L Normal 11-22-2016 [facility] (37057) Comment: Order Comment: [place]: M Performed By: #### L500.0140 0, L500.46500, L500.44066, L500.53856, L550.08589 ####[facility] PXHYSKPJGB7018 [place], [place] [address]Mn# [phone] BILI TOTAL 0.4 0.2-1.0 MG/DL Normal 11-22-2016 [facility] (68392) Comment: Order Comment: [place]: M Performed By: #### L500.0140 0, L500.81380, L500.11911, L500.81688, L550.84001 ####[facility] PYJSQEBSBW9144 [place], [place] [address]Am# [phone] BUN/Creatinine Ratio 19 15-24 mg/mg Normal 7 [facility] (15196) Comment: Order Comment: [place]: M Performed By: #### L500.0140 0, L500.96960, L500.50089, L500.23886, L550.44544 ####[facility] [id number] [place], [place] [address]Bt# [phone] Calcium 9.1 8.5-10.1 MG/DL Normal 11-22-2016 [facility] (27593) Comment: Order Comment: [place]: M Performed By: #### L500.0140 0, L500.51140, L500.76737, L500.18927, L550.81900 ####[facility] [id number] [place], [place] [address]Ma# [phone] Chloride 101 98-107 MMOL/L Normal 11-22-2016 [facility] (43326) Comment: Order Comment: [place]: M Performed By: #### L500.0140 0, L500.84733, L500.35440, L500.15092, L550.39477 ####[facility] [id number] [place], [place] [address]Aa# [phone] CO2 31 21-32 MMOL/L Normal 11-22-2016 [facility] (80043) Comment: Order Comment: [place]: M Performed By: #### L500.0140 0, L500.33441, L500.36983, L500.97443, L550.33491 ####[facility] IMIOTRZGRH1287 [place], [place] [address]Wx# [phone] Creatinine 0.738 0.670-1.170 MG/DL Normal 11-22-2016 [facility] (49223) Comment: Order Comment: [place]: M Result Comment: Patients rec eiving either N-Acetylcysteine (NAC) orMetamizole prior to venipu ncture, may have falsely depressedresults. Performed By: #### L500.0140 0, L500.76191, L500.75680, L500.79094, L550.71818 ####[facility] [id number] [place], [place] [address]Zk# [phone] Globulin 3.3 2.2-4.2 GM/DL Normal 11-22-2016 [facility] (73945) Comment: Order Comment: [place]: M Performed By: #### L500.0140 0, L500.76386, L500.96759, L500.78118, L550.52918 ####[facility] ESFVBEQVAI5759 [place], [place] [address]Tp# [phone] Glucose mass conc 97 70-100 MG/DL Normal 11-22-2016 [facility] (54135) Comment: Order Comment: [place]: M Result Comment: 89-434-Qyqyg l Fasting; 816-169-Cysdqkcr Fasting; greaterthan 126 on more than one result- Diabetes. ADA guidelines Performed By: #### L500.0140 0, L500.52580, L500.03360, L500.68755, L550.43124 ####[facility] WNVBGNSTVG9758 [place], [place] [address]Mj# [phone] Potassium molar conc 4.1 3.5-5.1 MMOL/L Normal 7 [facility] (24877) Comment: Order Comment: [place]: M Performed By: #### L500.0140 0, L500.13571, L500.29818, L500.72670, L550.33512 ####[facility] NUVSXVTFUO3078 [place], [place] [address]Xy# [phone] Protein 6.7 6.0-8.5 GM/DL Normal 11-22-2016 [facility] (18147) Comment: Order Comment: [place]: M Performed By: #### L500.0140 0, L500.22337, L500.81167, L500.87354, L550.15740 ####[facility] [id number] [place], [place] [address]Np# [phone] SGOT (AST) 30 8-34 U/L Normal 11-22-2016 [facility] (43997) Comment: Order Comment: [place]: M Performed By: #### L500.0140 0, L500.78496, L500.09618, L500.69278, L550.48020 ####[facility] [id number] [place], [place] [address]Um# [phone] Sodium 136 136-145 MMOL/L Normal 11-22-2016 [facility] (42787) Comment: Order Comment: [place]: M Performed By: #### L500.0140 0, L500.87351, L500.38462, L500.48631, L550.53875 ####[address] [place], [place] [address]Yu# [phone] Urea nitrogen 14 7-26 MG/DL Normal 11-22-2016 [facility] (30317) Comment: Order Comment: [place]: M Performed By: #### L500.0140 0, L500.12896, L500.81840, L500.44777, L550.63303 ####[address] [address]Nm# [phone] cbc w/diff on 11-22 BASO ABS 0.10 0-0.2 K/CU MM Normal 11-22-2016 [facility] (93536) Comment: Order Comment: [place]: M Performed By: #### L500.0140 0, L500.10943, L500.40528, L500.85506, L550.26998 ####[address] [address]Ri# [phone] Basophils/100 WBC Auto (Bld) 1.5 0-2 % Normal 0 11-22-2016 [facility] (14526) Comment: Order Comment: [place]: M Performed By: #### L500.0140 0, L500.26255, L500.80412, L500.64785, L550.67743 ####[facility] AFMEFFULPA4493 [place], [place] [address]Uu# [phone] EOS ABS 0.50 0-0.5 K/CU MM Normal 11-22-2016 [facility] (26722) Comment: Order Comment: [place]: M Performed By: #### L500.0140 0, L500.04574, L500.49685, L500.44350, L550.85476 ####[address] [address]Su# [phone] Eosinophils/100 leukocytes 9.0 0-5 % High [facility] (98083) Comment: Order Comment: [place]: M Performed By: #### L500.0140 0, L500.14361, L500.07322, L500.05897, L550.26814 ####[facility] JFHJZLYWIU7679 [place], [place] [address]Pf# [phone] IMMATR GRAN ABS 0.00 Less than 2 K/CU MM Normal 11-22-2016 [facility] (00 000) Comment: Order Comment: [place]: M Performed By: #### L500.0140 0, L500.24123, L500.96675, L500.96536, L550.13198 ####[address] [address]Jy# [phone] IMMATURE GRAN % 0.8 Less than 2 % Normal 11-22-2016 [facility] (89059) Comment: Order Comment: [place]: M Performed By: #### L500.0140 0, L500.24126, L500.11637, L500.39608, L550.65319 ####[address] [address]Qs# [phone] Lymphocytes 2.40 0.9-4.4 K/CU MM Normal 11-22-2016 [facility] (51938) Comment: Order Comment: [place]: M Performed By: #### L500.0140 0, L500.66029, L500.28200, L500.26118, L550.86913 ####[address] [address]Lk# [phone] Lymphocytes/100 leukocytes 46.3 20-40 % High [facility] (95206) Comment: Order Comment: [place]: M Performed By: #### L500.0140 0, L500.07342, L500.72254, L500.86928, L550.25548 ####[address] [address]Rj# [phone] MONO ABS 0.40 0.1-1.1 K/CU MM Normal 11-22-2016 [facility] (84989) Comment: Order Comment: [place]: M Performed By: #### L500.0140 0, L500.85624, L500.36733, L500.76893, L550.46077 ####[address] [place], [place] [address]Vb# [phone] Monocytes/100 leukocytes 7.5 2-10 % Normal 11-22 [facility] (49878) Comment: Order Comment: [place]: M Performed By: #### L500.0140 0, L500.57358, L500.19169, L500.12342, L550.17169 ####[address] [address]Xa# [phone] NC/NC NORMOCYTIC Normal 11-22-2016 [facility] (05451) Comment: Order Comment: [place]: M Performed By: #### L500.0140 0, L500.23706, L500.24980, L500.24994, L550.87092 ####[facility] [place], [place] [address]Qk# [phone] Neutrophils 1.80 2.0-8.3 K/CU MM Low 11-22-2016 [facility] (57176) Comment: Order Comment: [place]: M Performed By: #### L500.0140 0, L500.16993, L500.97390, L500.47778, L550.93599 ####[facility] [id number] [place], [place] [address]Dk# [phone] Neutrophils/100 WBC Auto (Bld) 34.9 45-75 % Low 11-22-2016 [facility] (00 000) Comment: Order Comment: [place]: M Performed By: #### L500.0140 0, L500.34620, L500.32927, L500.32189, L550.28202 ####[facility] GSPQRQIBGI3998 [place], [place] [address]Pd# [phone] PLT EST ADEQUATE Normal 11-22-2016 [facility] (55519) Comment: Order Comment: [place]: M Performed By: #### L500.0140 0, L500.22455, L500.69682, L500.28743, L550.73954 ####[facility] [id number] [place], [place] [address]Ev# [phone] POLY 1+ Normal 11-22-2016 [facility] (07348) Comment: Order Comment: [place]: M Performed By: #### L500.0140 0, L500.98839, L500.87608, L500.51250, L550.46450 ####[address] [address]Mw# [phone] Erythrocyte distribution 12.8 11-14.5 % Normal 11-[address] [facility] width Auto Ratio (RBC) [place] (63367) Comment: Order Comment: [place]: M Performed By: #### L500.0140 0, L500.28142, L500.13012, L500.40196, L550.63733 ####[facility] BKSKHAUULQ5795 [place], [place] [address]Jf# [phone] Erythrocytes (RBC) 4.24 4.50-6.00 M/CU MM Low 11-22-2016 [facility] (84019) Comment: Order Comment: [place]: M Performed By: #### L500.0140 0, L500.15743, L500.17833, L500.49455, L550.92364 ####[facility] JSJEVQBOQF0576 [place], [place] [address]Bu# [phone] Erythrocytes (RBC) 0.0 Less than 1 % Normal [address] [facility] [place] (95840) Comment: Order Comment: [place]: M Performed By: #### L500.0140 0, L500.96671, L500.05571, L500.66935, L550.98169 ####[facility] GHHIUBYTRU4141 [place], [place] [address]Xk# [phone] Hematocrit (HCT) 35.9 41.0-53.0 % Low 11-22-2016 [facility] (54839) Comment: Order Comment: [place]: M Performed By: #### L500.0140 0, L500.50400, L500.43623, L500.22301, L550.03975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 Facility:[facility] 12-18-2016 [facility] CARE,WOUND VAC,MRSA 10-24-2016 - Emergency POST SURGICAL BETINA R ALANNALISA Facility:[facility] 10-24-2016 department patient INFECTION/FRACTURE NONE PHYSICIAN E MAIN visit OF CLAVICLE,... JOSEMANUEL DIMAS 11-12-2017 Patient encounter Nondisplaced Rogelio Chiang [facility] Heal th fracture of head of UNKNOWN PROVIDER Syst em (08897) left radius, initial PCP No encounter for closed fracture Procedures Procedure Name Date Provider Location Urinalysis 09-14-2016 - 09-14-2016 [facility] (97283) Plan of Treatment Plan Description Date Location Appointment Appointment 09-27-2016 - 09-27-2016 [facility] (85297) Appointment Appointment 09-14-2016 - 09-14-2016 [facility] (34323) Appointment Appointment 09-13-2016 - 09-13-2016 [facility] (54974) no information [facility] and Orth[facility]ics ([id number]) Payers Payer Name Policy Number Location [facility] [id number] [facility] hospital ([id number]) [employer] [facility] ([id number]) [facility] [id number] [facility] ([id number]) The following information is from the original human readable contentNo Payer Records FoundNo Payer Records FoundNo Payer Records Found Summary Purpose Family History No Family History Records FoundNo Family History Records FoundNo Family History Records FoundNo Family History Records FoundNo Family History Records Found Advance Directives No Advanced Directives Records FoundNo Advanced Directives Records FoundNo Advanced Directives Records FoundNo Advanced Directives Records FoundNo Advanced Directives Records Found Additional Source Comments FOR RECORDS PERTAINING TO PATIENTS WHO ARE OR HAVE BEEN ENROLLED IN A CHEMICAL DEPENDENCY/SUBSTANCE ABUSE PROGRAM, SOME INFORMATION MAY BE OMITTED. This clinical summary was aggregated from multiple sources. Caution should be exercised in using it in the provision of clinical care. This summary normalizes information from multiple sources, and as a consequence, information in this document may materially changethe coding, format and clinical context of patient data. In addition, data may be omittedin some cases. CLINICAL DECISIONS SHOULD BE BASED ON THE PRIMARY CLINICAL RECORDS. [facility] provides no warranty or guarantee of the accuracy or completeness of information in this document. UNRECOGNIZED CONTENT PROVIDED BELOW FOR UNRECOGNIZED SECTION No Status Records FoundNo Status Records FoundNo Status Records FoundNo Status Records FoundNo Status Records Found UNRECOGNIZED CONTENT PROVIDED BELOW FOR UNRECOGNIZED SECTION INFORMATION SOURCE DATE CREATED AUTHOR AUTHOR'S ORGANIZATIO N 10/23/2017 [facility] ation DATE CREATED AUTHOR AUTHOR'S ORGANIZATIO N 10/23/2017 [facility] DATE CREATED AUTHOR AUTHOR'S ORGANIZATIO N 11/16/2017 [facility] DATE CREATED AUTHOR AUTHOR'S ORGANIZATIO N 11/12/2018 [facility] DATE CREATED AUTHOR AUTHOR'S ORGANIZATIO N 12/29/2019 [facility] black
--- OUTSIDE RECORDS SUMMARY | 2020-02-09 15:10 | XMS RPT_ITS | CCD ---
:1990 External Reference #:[id number] Author Organization [facility] Care Team Providers Name Role Phone ALANNALISA, R Unavailable Unavailable PHYSICIAN Unavailable Unavailable Annie DIMAS Unavailable Unavailable Kim Dooley Unavailable Curtis Gilman Unavailable Unavailable Андрей Unavailable Unavailable PROVIDER Unavailable Unavailable No Unavailable Unavailable Kim Dooley Unavailable Allergies Reported Allergen Reaction(s) Severity Date of Onset Location Bee anaphylaxis Critical, Critical 09-13-2016 - [facility] (9 0509) penicillin anaphylaxis Critical, Critical 09-13-2016 [facility] (1 5692) Problems Active Problems Category Problem Name Status Date Location Fracture of upper limb Displaced fracture of Active [address] [place] [address] shaft of right Sports Medici ne and clavicle, initial Orthopaedi cs (01847) encounter for closed fracture Hepatitis Unspecified viral Active 11-12-2017 - 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 Results Result Name Value Range Unit Interpretation Flag Date [facility] CNPN Telephone (UCWSTR) Normal 12-29-2019 [place] [facility] MARIELAAMOSENSLINDSAY ([id number]) 1990 [facility] Date Time Provider Department (98940) 12/29/19 LINETTE BRITO) [facility] During your visit today, we recorded the [...] 2019-12-28 Syphilis Interp Cannot exclude recent Normal [facility] Treponemal infection if [place] (57911) specimen collected within 7 to 10 days after appearance of suspect lesions or 2 to 3 weeks after an exposure. Clinical correlation is required. Comment: Performed By: #### SYPHTX ## ## [facility] [address] [place], [place] [address] Syphilis Screen Non Reactive Non Reactive Normal 12-28-19 [facility] Rslt [place] (16451) Comment: Performed By: #### SYPHTX ## ## [facility] [address] [place], [place] [address] progress on 2019-11 PROGRESS HNO ID: [id number] Normal 12-28-2019 [place] Author: Tristan Zhang [facility] Service: ? [place] Author Type: Physician ([id number]) Type: Progress Notes Filed: 12/28/2019 10:05 AM [...] CNOV Office Visit (UCWSTR) Normal 12-28-[address] [place] [address] LINDSAY Malagon ([id number]) 1990 [facility] Date Time Provider Department (88950) 12/28/19 9:30 AM TRISTAN ZHANG [facility] During your visit today, we recorded the [...] - Swelling Date Reviewed: 12/28/2019 Reviewed by: Daniac Ferrari Ma - Fully Assessed Reason for Visit: Rash [1087] Cmt: MARÍA hands x 2 days Primary Visit Diagnosis:Rash of hands [R21] Other Visit Diagnoses:History of hepatitis [Z86.19] Genital warts [A63.0] Order(s):SYPHILIS TOTAL W/REFLEX [SQSYPHTX] Order #: [id number] FUTURE CONSULT TO UROLOGY [9041] Order #: [id number]: 1 FUTURE Problem List As Of Date [...] CULTURE URINE --> Status: F [facility] (<1,000 CFU/ml). (24688) Comment: Order Comment: Specimen Sour ce Comment:Urine, clean catch Performed By: #### C/UR #### [facility] [address] [place] [id number] drugs of abuse on Opiates, Ur Negative Normal 11-05-2018 [facility] (19322) Comment: Performed By: #### CUA2, DRG A4 #### [address] [place] [address] Phencyclidine (PCP), Ur Negative Normal 2018 [facility] (40666) Comment: Result Comment: The expected value for [...] Performed By: #### CUA2, DRG A4 #### [address] [address] Methadone, Ur Negative Normal 11-05-2018 [facility] (46079) Comment: Performed By: #### CUA2, DRG A4 #### [address] [place] [address] Benzodiazepines, Ur Negative Normal 11-05-2018 [facility] (09169) Comment: Performed By: #### CUA2, DRG A4 #### [address] [place] [address] Cocaine, Ur Negative Normal 11-05-[address] [facility] (97090) Comment: Performed By: #### CUA2, DRG A4 #### [address] [place] [address] Amphetamines, Ur Negative Normal 11-05-2018 [facility] (09746) Comment: Performed By: #### CUA2, DRG A4 #### [address] [place] [address] Barbiturates, Ur Negative Normal 11-05-2018 [facility] (80040) Comment: Performed By: #### CUA2, DRG A4 #### [facility] [address] [place] [address] Oxycodone/Oxymorphine,Ur Negative Normal 11-05 [facility] (37621) Comment: Performed By: #### CUA2, DRG A4 #### [facility] [address] [place] [address] ct abdomen/pelvis w/o contrast on 2018-11-05 CT Abdomen/Pelvis w/o Patient Name: LINDSAY DARLING Normal 11-05-2018 [facility] (80725) CT Exam Date/Time 11/05/2018 12:58:[address] Abdomen/Pelvis (No PO, No IV) Ordering Physician MD ALEXYS, [facility] Accession Number [id number] CPT4 Codes 42723 (CT Abdomen/Pelvis (No PO, No IV)) Reason [...] 2018-11-05 Appearance (U) Sl. Cloudy Normal 11-05-2018 [facility] (49562) Comment: Result Comment: Reference Ra nge: Clear Performed By: #### CUA2, DRG A4 #### [facility] [address] [place] [address] Bilirubin,Urine Negative Normal 11-05-2018 [facility] (54188) Comment: Result Comment: Reference Ra nge: Negative Performed By: #### CUA2, DRG A4 #### [facility] [address] [place] [address] Color (U) Yellow Normal 11-05-2018 [facility] (23231) Comment: Result Comment: Reference Ra nge: Lt. Yellow Performed By: #### CUA2, DRG A4 #### [address] [place] [address] Glucose Ql (U) NEG (Normal) Normal 11-05-2018 [facility] (22346) Comment: Result Comment: Reference Ra nge: Normal (<70) Performed By: #### CUA2, DRG A4 #### [address] [address] Ketone,Urine Negative Normal 11-05-2018 [facility] (36850) Comment: Result Comment: Reference Ra nge: Negative Performed By: #### CUA2, DRG A4 #### [address] [address] Leukocytes,Urine NEG Normal 11-05-2018 [facility] (25778) Comment: Result Comment: Reference Ra nge: Negative Performed By: #### CUA2, DRG A4 #### [address] [address] Nitrites,Urine NEG Normal 11-05-2018 [facility] (88966) Comment: Result Comment: Reference Ra nge: Negative Performed By: #### CUA2, DRG A4 #### [address] [place] [address] Occult Blood,Urine Negative Normal 11-05-2018 [facility] (08090) Comment: Result Comment: Reference Ra nge: Negative Performed By: #### CUA2, DRG A4 #### [address] [place] [address] pH (U) 8.0 5.0-8.0 Normal 11-05-2018 [facility] (20959) Comment: Performed By: #### CUA2, DRG A4 #### [address] [address] Protein (U) [Mass/Vol] NEG mg/dL Normal 019 [facility] (23860) Comment: Result Comment: Reference Ra nge: Negative Performed By: #### CUA2, DRG A4 #### [address] [place] [address] Specific [place],Urine 1.010 1.005-1.030 Normal 11-05 [facility] (74141) Comment: Performed By: #### CUA2, DRG A4 #### [address] [place] [address] Urobilinogen,Urine Normal (0.2) Normal 11-06-19 [facility] (08064) Comment: Result Comment: Reference Ra nge: Normal (0-1) Performed By: #### CUA2, DRG A4 #### [address] [address] basic metabolic panel on 2018-11-05 Calcium [Mass/Vol] 9.4 8.4-10.4 mg/dL Normal 11-05-2018 [facility] (36976) Comment: Performed By: #### BMP3 #### [address] [address] Anion gap [Moles/Vol] 7 Normal 11-06-19 [facility] (39119) Comment: Performed By: #### BMP3 #### [address] [address] CO2 [Moles/Vol] 30 22-30 mmol/L Normal 11-05-2018 [facility] (63760) Comment: Performed By: #### BMP3 #### [address] [place] [address] Creatinine [Mass/Vol] 0.59 0.52-1.25 mg/dL Normal 11-06-19 [facility] (85496) Comment: Performed By: #### BMP3 #### [address] [place] [address] GFR/1.73 sq M > 60.0 >60 mL/min/{1.73_m2} Normal 9 [facility] predicted among Syst em (21241) blacks MDRD (S/P/Bld) [Vol rate/Area] Comment: Performed By: #### BMP3 #### [facility] [employer] [address] [place] [address] GFR/1.73 sq M > 60.0 >60 mL/min/{1.73_m2} Normal 9 [facility] predicted among Syst em (01982) non-blacks MDRD (S/P/Bld) [Vol rate/Area] Comment: Result Comment: Source- MDRD equation with creatinine calibration to IDMS(NKDEP) eGFR not recommended for carmine g dose adjustment Performed By: #### BMP3 #### [employer] [place] [address] Glucose [Mass/Vol] 105 70-100 mg/dL High 11-05-2018 [employer] [employer] (47797) Comment: Performed By: #### BMP3 #### [employer] [facility] [place] [address] Urea nitrogen [Mass/Vol] 12 7-20 mg/dL Normal 11-05 [facility] (75878) Comment: Performed By: #### BMP3 #### [employer] [place] [address] Chloride [Moles/Vol] 101 98-107 mmol/L Normal 9 [facility] (25966) Comment: Performed By: #### BMP3 #### [facility] [address] [place] [address] Potassium [Moles/Vol] 3.9 3.5-5.1 mmol/L Normal 11-06-19 19 [facility] [employer] (52404) Comment: Performed By: #### BMP3 #### [facility] [address] [place] [address] Sodium [Moles/Vol] 137 135-145 mmol/L Normal 11-05-2018 [facility] (77463) Comment: Performed By: #### BMP3 #### [employer] [employer] [address] [place] [address], [place] [address] replaced document: (p) culture, fungus w / [id number] on 2016-12-21 GE use only - for . Invalid Interpretation 12-21-2016 - [facility] [employer] import Code 12-21-2016 [facility] and when terms are not O rthopaedics (40177) otherwise specified wound culture on 13-12-18 WOUND CULTURE GRAM STAIN Normal 12-15-2016 [facility] FEW WBC'S [place] (00 000) FEW GRAM POSITIVE COCCI FEW GRAM POSITIVE BACILLUS ORGANISM 1: DIPHTHEROIDS QUANTITATION MODERATE ID TO FOLLOW NOT VIABLE FOR SENSITIVITY Comment: Order Comment: [place]: M Performed By: #### L500.0140 0, L500.06015, L500.99565, L500.25287, L550.11293 ####[facility] MLGZABXRYH7045 [place], [place] [address]Oz# [phone] gfr est on IF AMER Greater than 60 Normal 12-16-[address] [place] [address] (20663) Comment: Order Comment: [place]: M Performed By: #### L500.0140 0, L500.59706, L500.79304, L500.26143, L550.67684 ####[facility] [address] [place] [address]Ro# [phone] IF non-AFR AMER Greater than 60 Normal 12-16-[address] [place] [address] (07140) Comment: Order Comment: [place]: M Performed By: #### L500.0140 0, L500.54591, L500.17957, L500.09616, L550.98104 ####[facility] XEXTBUGWXZ2161 [place], [place] [address]Vh# [phone] cmp on 2016-12-15 Alanine aminotransferase (ALT) 45 13-61 IU/L Normal 12-15-2016 [facility] [place] (00 000) Comment: Order Comment: [place]: M Performed By: #### L500.0140 0, L500.59450, L500.33062, L500.51802, L550.45092 ####[facility] KXXVMJCSZR4187 [place], [place] [address]Js# [phone] Albumin 3.4 3.2-5.0 GM/DL Normal 12-15-2016 [facility] (52297) Comment: Order Comment: [place]: M Performed By: #### L500.0140 0, L500.19780, L500.36347, L500.61046, L550.01255 ####[facility] UKGMOUWSOP3648 [place], [place] [address]Jx# [phone] Albumin/Globulin Ratio 0.9 0.8-2.0 {ratio} Normal 017 [facility] (00 000) Comment: Order Comment: [place]: M Performed By: #### L500.0140 0, L500.86646, L500.82971, L500.44487, L550.35156 ####[facility] NLDOHUBUBR2722 [place], [place] [address]Bk# [phone] ALK PHOS 130 45-117 U/L High 12-15-2016 [facility] (53497) Comment: Order Comment: [place]: M Performed By: #### L500.0140 0, L500.94813, L500.83688, L500.64367, L550.61632 ####[facility] VHWFORRRFR3903 [place], [place] [address]Zv# [phone] Anion gap 9 5-16 MMOL/L Normal 12-15-2016 [facility] (96227) Comment: Order Comment: [place]: M Performed By: #### L500.0140 0, L500.38949, L500.02305, L500.65478, L550.82627 ####[facility] HMEITOZZKY5936 [place], [place] [address]Iw# [phone] BILI TOTAL 0.3 0.2-1.0 MG/DL Normal 12-15-2016 [facility] (52665) Comment: Order Comment: [place]: M Performed By: #### L500.0140 0, L500.60996, L500.25292, L500.36663, L550.53100 ####[facility] QFMLCSFEEA4606 [place], [place] [address]Re# [phone] BUN/Creatinine Ratio 18 15-24 mg/mg Normal 7 [facility] (68196) Comment: Order Comment: [place]: M Performed By: #### L500.0140 0, L500.92451, L500.23436, L500.64111, L550.61392 ####[facility] PMVGWJIMRI5845 [place], [place] [address]Vr# [phone] Calcium 9.8 8.5-10.1 MG/DL Normal 12-15-2016 [facility] (64521) Comment: Order Comment: [place]: M Performed By: #### L500.0140 0, L500.97601, L500.98263, L500.14328, L550.88545 ####[facility] FQYCVBJLSX3147 [place], [place] [address]Hi# [phone] Chloride 100 98-107 MMOL/L Normal 12-15-2016 [facility] (95515) Comment: Order Comment: [place]: M Performed By: #### L500.0140 0, L500.02150, L500.30279, L500.90195, L550.43792 ####[facility] ULGTLAAZIE4933 [place], [place] [address]Fh# [phone] CO2 30 21-32 MMOL/L Normal 12-15-2016 [facility] (16272) Comment: Order Comment: [place]: M Performed By: #### L500.0140 0, L500.41583, L500.11098, L500.66783, L550.44662 ####[facility] YLWUAEBDYJ3831 [place], [place] [address]Bm# [phone] Creatinine 0.867 0.670-1.170 MG/DL Normal 12-15-2016 [facility] (09664) Comment: Order Comment: [place]: M Result Comment: Patients rec eiving either N-Acetylcysteine (NAC) orMetamizole prior to venipu ncture, may have falsely depressedresults. Performed By: #### L500.0140 0, L500.50353, L500.68085, L500.44311, L550.87023 ####[facility] VDYYLVESMI3351 [place], [place] [address]Tt# [phone] Globulin 3.6 2.2-4.2 GM/DL Normal 12-15-2016 [facility] (07623) Comment: Order Comment: [place]: M Performed By: #### L500.0140 0, L500.21428, L500.86102, L500.11165, L550.83439 ####[facility] SIUMUSOVHV6687 [place], [place] [address]Ds# [phone] Glucose mass conc 98 70-100 MG/DL Normal 12-15-2016 [facility] (39015) Comment: Order Comment: [place]: M Result Comment: 87-623-Iumpe l Fasting; 688-254-Ieeeooxz Fasting; greaterthan 126 on more than one result- Diabetes. ADA guidelines Performed By: #### L500.0140 0, L500.13150, L500.39130, L500.25506, L550.78265 ####[facility] CVJPHZZENW2508 [place], [place] [address]Lx# [phone] Potassium molar conc 4.3 3.5-5.1 MMOL/L Normal 7 [facility] (73992) Comment: Order Comment: [place]: M Performed By: #### L500.0140 0, L500.24721, L500.04406, L500.64002, L550.12731 ####[facility] UUMRNNGMTS1163 [place], [place] [address]Ut# [phone] Protein 7.0 6.0-8.5 GM/DL Normal 12-15-2016 [facility] (62102) Comment: Order Comment: [place]: M Performed By: #### L500.0140 0, L500.92888, L500.59267, L500.89355, L550.94677 ####[facility] MMZYFBQLOA4755 [place], [place] [address]Sj# [phone] SGOT (AST) 30 8-34 U/L Normal 12-15-2016 [facility] (00887) Comment: Order Comment: [place]: M Performed By: #### L500.0140 0, L500.22658, L500.18687, L500.57931, L550.10121 ####[facility] [place] [address]Sq# [phone] Sodium 139 136-145 MMOL/L Normal 12-15-2016 [facility] (95720) Comment: Order Comment: [place]: M Performed By: #### L500.0140 0, L500.55437, L500.96867, L500.44143, L550.59877 ####[address] [address]Zf# [phone] Urea nitrogen 16 7-26 MG/DL Normal 12-15-2016 [facility] (64544) Comment: Order Comment: [place]: M Performed By: #### L500.0140 0, L500.72113, L500.46761, L500.72612, L550.19391 ####[facility] [place] [address]Af# [phone] cbc w/diff on 12-15 BASO ABS 0.10 0-0.2 K/CU MM Normal 12-15-2016 [facility] (82273) Comment: Order Comment: [place]: M Performed By: #### L500.0140 0, L500.29559, L500.02682, L500.01453, L550.39677 ####[address] [place], [place] [address]Go# [phone] Basophils/100 WBC Auto (Bld) 1.4 0-2 % Normal 0 12-15-2016 [facility] (61345) Comment: Order Comment: [place]: M Performed By: #### L500.0140 0, L500.28424, L500.19430, L500.11760, L550.17875 ####[facility] VQWPEZPZER3275 [place], [place] [address]Fu# [phone] EOS ABS 0.40 0-0.5 K/CU MM Normal 12-15-2016 [facility] [place] (09989) Comment: Order Comment: [place]: M Performed By: #### L500.0140 0, L500.60364, L500.97105, L500.41878, L550.08849 ####[facility] DAZZXCHAXE1728 [place], [place] [address]Ve# [phone] Eosinophils/100 leukocytes 6.1 0-5 % High [facility] (26568) Comment: Order Comment: [place]: M Performed By: #### L500.0140 0, L500.86307, L500.29577, L500.76097, L550.36356 ####[facility] YQJUUSPRCX0517 [place], [place] [address]Sy# [phone] Erythrocyte distribution 13.1 11-14.5 % Normal 12-15 [facility] width Auto Ratio (RBC) [place] (07245) Comment: Order Comment: [place]: M Performed By: #### L500.0140 0, L500.54152, L500.23550, L500.25445, L550.91219 ####[facility] CWZIABNRSA3830 [place], [place] [address]Cy# [phone] Erythrocytes (RBC) 4.41 4.50-6.00 M/CU MM Low 12-15-2016 [facility] (70301) Comment: Order Comment: [place]: M Performed By: #### L500.0140 0, L500.79577, L500.93008, L500.13076, L550.30247 ####[facility] YSIBBKYZGO4524 [place], [place] [address]Jt# [phone] Erythrocytes (RBC) 0.0 Less than 1 % Normal [address] [place] [address] (17157) Comment: Order Comment: [place]: M Performed By: #### L500.0140 0, L500.48028, L500.55870, L500.22383, L550.57145 ####[facility] SDOQJHVQHO4494 [place], [place] [address]Nj# [phone] Hematocrit (HCT) 37.4 41.0-53.0 % Low 12-15-2016 [facility] (16270) Comment: Order Comment: [place]: M Performed By: #### L500.0140 0, L500.26753, L500.80117, L500.53724, L550.37838 ####[address] [address]Xm# [phone] Hemoglobin mass conc (Bld) 12.4 13.5-17.5 G/DL Low [facility] (00 000) Comment: Order Comment: [place]: M Performed By: #### L500.0140 0, L500.88611, L500.62881, L500.50368, L550.81797 ####[facility] DULYBOXLPY5732 [place], [place] [address]Lf# [phone] IMMATR GRAN ABS 0.10 Less than 2 K/CU MM Normal 12-15-2016 [facility] (00 000) Comment: Order Comment: [place]: M Performed By: #### L500.0140 0, L500.33261, L500.01876, L500.67844, L550.74824 ####[facility] MLXBMDNRIN0826 [place], [place] [address]Dj# [phone] IMMATURE GRAN % 0.8 Less than 2 % Normal 12-15-2016 [facility] (81116) Comment: Order Comment: [place]: M Performed By: #### L500.0140 0, L500.04086, L500.17499, L500.93131, L550.64980 ####[facility] OIKWSWHHKQ5896 [place], [place] [address]Kl# [phone] Lymphocytes 3.60 0.9-4.4 K/CU MM Normal 12-15-2016 [facility] (11672) Comment: Order Comment: [place]: M Performed By: #### L500.0140 0, L500.23541, L500.73604, L500.19901, L550.87483 ####[facility] [place], [place] [address]Nr# [phone] Lymphocytes/100 leukocytes 56.6 20-40 % High [facility] (67898) Comment: Order Comment: [place]: M Performed By: #### L500.0140 0, L500.59243, L500.68708, L500.58389, L550.95993 ####[address] [place], [place] [address]Ot# [phone] MCHC mass conc (RBC) 33.2 32.0-36.0 GM/DL Normal 7 [facility] (00 000) Comment: Order Comment: [place]: M Performed By: #### L500.0140 0, L500.12938, L500.00427, L500.99104, L550.09405 ####[facility] RYJIZAQKNM3433 [place], [place] [address]Fx# [phone] MCV 84.8 80.0-99.0 fl Normal 12-15-2016 [facility] (46243) Comment: Order Comment: [place]: M Performed By: #### L500.0140 0, L500.33156, L500.94743, L500.29287, L550.02692 ####[facility] BAIOFDUAFH1398 [place], [place] [address]Dr# [phone] MONO ABS 0.50 0.1-1.1 K/CU MM Normal 12-15-2016 [facility] (12160) Comment: Order Comment: [place]: M Performed By: #### L500.0140 0, L500.60393, L500.18664, L500.78584, L550.21207 ####[facility] SEJTGMSURP0579 [place], [place] [address]Hq# [phone] Monocytes/100 leukocytes 8.5 2-10 % Normal 12-15 [facility] (41671) Comment: Order Comment: [place]: M Performed By: #### L500.0140 0, L500.60070, L500.45494, L500.08551, L550.75212 ####[facility] SPXJZZAMAU0507 [place], [place] [address]Wc# [phone] Neutrophils 1.70 2.0-8.3 K/CU MM Low 12-15-2016 [facility] (69437) Comment: Order Comment: [place]: M Performed By: #### L500.0140 0, L500.36666, L500.39151, L500.60675, L550.65672 ####[facility] ZBGBMCDCQU[address] [place] [address]Ku# [phone] Neutrophils/100 WBC Auto (Bld) 26.6 45-75 % Low 12-15-2016 [facility] (00 000) Comment: Order Comment: [place]: M Performed By: #### L500.0140 0, L500.10608, L500.07003, L500.09228, L550.85486 ####[facility] WRUEVUILVH9714 [place], [place] [address]Lp# [phone] Platelet mean volume (PMV) 8.8 9.4-12.4 fL Low [facility] (31826) Comment: Order Comment: [place]: M Performed By: #### L500.0140 0, L500.24970, L500.80778, L500.85193, L550.71516 ####[facility] DEWHOAHJKT9104 [place], [place] [address]Lx# [phone] Platelets 242 150-450 K/CU MM Normal 12-15-2016 [facility] (37697) Comment: Order Comment: [place]: M Performed By: #### L500.0140 0, L500.89899, L500.48695, L500.18289, L550.07652 ####[facility] WXDMEIBQLI6663 [place], [place] [address]Tv# [phone] WBC (Leukocytes) 6.4 4.5-11.0 K/CU MM Normal 12-15-2016 [facility] (24617) Comment: Order Comment: [place]: M Performed By: #### L500.0140 0, L500.92787, L500.77544, L500.77093, L550.05773 ####[facility] [id number] [place], [place] [address]Wy# [phone] gfr est on IF AMER Greater than 60 Normal 12-14-[address] [place] [address] ([id number]) Comment: Order Comment: [place]: M Performed By: #### L500.0140 0, L500.96751, L500.94869, L500.58589, L550.87678 ####[facility] [id number] [place], [place] [address]Va# [phone] IF non-AFR AMER Greater than 60 Normal 12-14-[address] [place] [address] ([id number]) Comment: Order Comment: [place]: M Performed By: #### L500.0140 0, L500.66538, L500.98480, L500.07220, L550.83288 ####[facility] [id number] [place] [address]Vn# [phone] cmp on 2016-12-13 Alanine aminotransferase (ALT) 46 13-61 IU/L Normal 12-13-2016 [facility] (00 000) Comment: Order Comment: [place]: M Performed By: #### L500.0140 0, L500.29469, L500.42385, L500.36205, L550.45093 ####[facility] EVOGRGCBPL6807 [place], [place] [address]Xv# [phone] Albumin 3.4 3.2-5.0 GM/DL Normal 12-13-2016 [facility] (32186) Comment: Order Comment: [place]: M Performed By: #### L500.0140 0, L500.67318, L500.50637, L500.56724, L550.00149 ####[facility] OKRSLOEMRK0059 [place], [place] [address]Tr# [phone] Albumin/Globulin Ratio 1.0 0.8-2.0 {ratio} Normal 017 [facility] (00 000) Comment: Order Comment: [place]: M Performed By: #### L500.0140 0, L500.82076, L500.58406, L500.26138, L550.78663 ####[facility] WAHFSUKJBL0146 [place], [place] [address]Ld# [phone] ALK PHOS 114 45-117 U/L Normal 12-13-2016 [facility] (56914) Comment: Order Comment: [place]: M Performed By: #### L500.0140 0, L500.09828, L500.75849, L500.35940, L550.13641 ####[facility] GCIAGHSJDQ8397 [place], [place] [address]Uu# [phone] Anion gap 9 5-16 MMOL/L Normal 12-13-2016 [facility] (82423) Comment: Order Comment: [place]: M Performed By: #### L500.0140 0, L500.08589, L500.11558, L500.91533, L550.66764 ####[facility] GBEQFTKJHC0079 [place], [place] [address]Os# [phone] BILI TOTAL 0.3 0.2-1.0 MG/DL Normal 12-13-2016 [facility] (06991) Comment: Order Comment: [place]: M Performed By: #### L500.0140 0, L500.70580, L500.58998, L500.14989, L550.54841 ####[facility] LIXOPSMSUY2325 [place], [place] [address]Pu# [phone] BUN/Creatinine Ratio 19 15-24 mg/mg Normal 7 [facility] (39283) Comment: Order Comment: [place]: M Performed By: #### L500.0140 0, L500.05198, L500.31123, L500.20315, L550.04282 ####[facility] YOICQFAQLV2939 [place], [place] [address]If# [phone] Calcium 9.2 8.5-10.1 MG/DL Normal 12-13-2016 [facility] (44013) Comment: Order Comment: [place]: M Performed By: #### L500.0140 0, L500.99050, L500.75299, L500.90882, L550.27021 ####[facility] SNDLIYSEHK8208 [place], [place] [address]Ky# [phone] Chloride 102 98-107 MMOL/L Normal 12-13-2016 [facility] (45540) Comment: Order Comment: [place]: M Performed By: #### L500.0140 0, L500.92532, L500.43777, L500.73177, L550.48401 ####[facility] ZACOTPYBLX4239 [place], [place] [address]Se# [phone] CO2 27 21-32 MMOL/L Normal 12-13-2016 [facility] (30791) Comment: Order Comment: [place]: M Performed By: #### L500.0140 0, L500.77570, L500.86823, L500.50724, L550.68546 ####[facility] YBWNXHMLRC4902 [place], [place] [address]Iw# [phone] Creatinine 0.774 0.670-1.170 MG/DL Normal 12-13-2016 [facility] (65823) Comment: Order Comment: [place]: M Result Comment: Patients rec eiving either N-Acetylcysteine (NAC) orMetamizole prior to venipu ncture, may have falsely depressedresults. Performed By: #### L500.0140 0, L500.61494, L500.00726, L500.66370, L550.23371 ####[facility] KACVNHVOUH4733 [place], [place] [address]Of# [phone] Globulin 3.3 2.2-4.2 GM/DL Normal 12-13-2016 [facility] (26296) Comment: Order Comment: [place]: M Performed By: #### L500.0140 0, L500.44683, L500.95506, L500.56410, L550.70141 ####[facility] QQUYJGSOZX1220 [place], [place] [address]Pb# [phone] Glucose mass conc 83 70-100 MG/DL Normal 12-13-2016 [facility] (60312) Comment: Order Comment: [place]: M Result Comment: 06-903-Vyriq l Fasting; 755-214-Kmfrqswp Fasting; greaterthan 126 on more than one result- Diabetes. ADA guidelines Performed By: #### L500.0140 0, L500.33916, L500.97486, L500.14326, L550.86201 ####[facility] NXLDPEEGPU0123 [place], [place] [address]Cf# [phone] Potassium molar conc 4.5 3.5-5.1 MMOL/L Normal 7 [facility] (18375) Comment: Order Comment: [place]: M Performed By: #### L500.0140 0, L500.90044, L500.88462, L500.60382, L550.93862 ####[facility] CLFLFPXUOG1245 [place], [place] [address]Vy# [phone] Protein 6.7 6.0-8.5 GM/DL Normal 12-13-2016 [facility] (41159) Comment: Order Comment: [place]: M Performed By: #### L500.0140 0, L500.01507, L500.90541, L500.76629, L550.31751 ####[facility] BMRMGFIIYN4545 [place], [place] [address]As# [phone] SGOT (AST) 30 8-34 U/L Normal 12-13-2016 [facility] (65936) Comment: Order Comment: [place]: M Performed By: #### L500.0140 0, L500.82877, L500.02636, L500.65816, L550.89891 ####[facility] HQDEHYZKDJ1883 [place], [place] [address]Hx# [phone] Sodium 137 136-145 MMOL/L Normal 12-13-2016 [facility] (46015) Comment: Order Comment: [place]: M Performed By: #### L500.0140 0, L500.66662, L500.30607, L500.94028, L550.56606 ####[facility] KBUVYNNPWL1776 [place], [place] [address]Tm# [phone] Urea nitrogen 15 7-26 MG/DL Normal 12-13-2016 [facility] (17729) Comment: Order Comment: [place]: M Performed By: #### L500.0140 0, L500.46915, L500.88954, L500.67974, L550.90763 ####[facility] JWIVMXHKCC1203 [place], [place] [address]Jy# [phone] cbc w/diff on 12-13 BASO ABS 0.10 0-0.2 K/CU MM Normal 12-13-2016 [facility] (17981) Comment: Order Comment: [place]: M Performed By: #### L500.0140 0, L500.79983, L500.20244, L500.65543, L550.20868 ####[facility] MXPSMGTSUT6607 [place], [place] [address]Xa# [phone] Basophils/100 WBC Auto (Bld) 1.2 0-2 % Normal 0 12-13-2016 [facility] (66249) Comment: Order Comment: [place]: M Performed By: #### L500.0140 0, L500.70355, L500.14356, L500.82313, L550.79153 ####[facility] CERCTUXVPJ0419 [place], [place] [address]Nj# [phone] EOS ABS 0.30 0-0.5 K/CU MM Normal 12-13-2016 [facility] [place] (04767) Comment: Order Comment: [place]: M Performed By: #### L500.0140 0, L500.91753, L500.61810, L500.85713, L550.88591 ####[address] [address]Ad# [phone] Eosinophils/100 leukocytes 4.5 0-5 % Normal [facility] (09733) Comment: Order Comment: [place]: M Performed By: #### L500.0140 0, L500.50044, L500.88120, L500.99151, L550.04452 ####[facility] EHNHCBUROS1133 [place], [place] [address]Lk# [phone] Erythrocyte distribution 13.3 11-14.5 % Normal 12-13 [facility] width Auto Ratio (RBC) [place] (52252) Comment: Order Comment: [place]: M Performed By: #### L500.0140 0, L500.55798, L500.87717, L500.19714, L550.84987 ####[facility] [address]IMX[address]MO[address] [place] [address]Wg# [phone] Erythrocytes (RBC) 0.0 Less than 1 % Normal 7 [facility] (25448) Comment: Order Comment: [place]: M Performed By: #### L500.0140 0, L500.51529, L500.63672, L500.23220, L550.74218 ####[facility] YXRXJPHKOE8970 [place], [place] [address]Kd# [phone] Erythrocytes (RBC) 4.24 4.50-6.00 M/CU MM Low 12-13-2016 [facility] (06021) Comment: Order Comment: [place]: M Performed By: #### L500.0140 0, L500.94882, L500.03909, L500.35904, L550.05852 ####[facility] VXHMZIOKWE8582 [place], [place] [address]Ki# [phone] Hematocrit (HCT) 36.8 41.0-53.0 % Low 12-13-2016 [facility] (09496) Comment: Order Comment: [place]: M Performed By: #### L500.0140 0, L500.90630, L500.97916, L500.37322, L550.45759 ####[facility] TXRWEZWVKF3006 [place], [place] [address]Dw# [phone] Hemoglobin mass conc (Bld) 12.0 13.5-17.5 G/DL Low [facility] (00 000) Comment: Order Comment: [place]: M Performed By: #### L500.0140 0, L500.81152, L500.20067, L500.42203, L550.56238 ####[facility] QBNWCYERJL7795 [place], [place] [address]At# [phone] IMMATR GRAN ABS 0.00 Less than 2 K/CU MM Normal 12-13-2016 [facility] (00 000) Comment: Order Comment: [place]: M Performed By: #### L500.0140 0, L500.34556, L500.96912, L500.29774, L550.64491 ####[facility] IFVCSASEFE1871 [place], [place] [address]Ru# [phone] IMMATURE GRAN % 0.5 Less than 2 % Normal 12-13-2016 [facility] (98935) Comment: Order Comment: [place]: M Performed By: #### L500.0140 0, L500.92063, L500.43573, L500.37427, L550.06637 ####[facility] JIZZLXALZB1513 [place], [place] [address]Iw# [phone] Lymphocytes 4.10 0.9-4.4 K/CU MM Normal 12-13-2016 [facility] (17941) Comment: Order Comment: [place]: M Performed By: #### L500.0140 0, L500.58524, L500.55408, L500.83186, L550.46633 ####[facility]1320 [place], [place] [address]Yp# [phone] Lymphocytes/100 leukocytes 63.2 20-40 % High [facility] (41719) Comment: Order Comment: [place]: M Performed By: #### L500.0140 0, L500.15269, L500.91102, L500.55421, L550.34693 ####[facility] MHCSBNCLOH8460 [place], [place] [address]Rr# [phone] MCHC mass conc (RBC) 32.6 32.0-36.0 GM/DL Normal 7 [facility] (00 000) Comment: Order Comment: [place]: M Performed By: #### L500.0140 0, L500.00943, L500.66539, L500.70982, L550.71332 ####[facility] ZCPSQFRNDD4479 [place], [place] [address]Dh# [phone] MCV 86.8 80.0-99.0 fl Normal 12-13-2016 [facility] (52798) Comment: Order Comment: [place]: M Performed By: #### L500.0140 0, L500.36292, L500.44615, L500.00713, L550.08466 ####[facility] OJIPVBFIVF8794 [place], [place] [address]Ta# [phone] MONO ABS 0.50 0.1-1.1 K/CU MM Normal 12-13-2016 [facility] (86865) Comment: Order Comment: [place]: M Performed By: #### L500.0140 0, L500.66057, L500.08974, L500.38576, L550.36648 ####[facility] INFCATZUPT5705 [place], [place] [address]Yo# [phone] Monocytes/100 leukocytes 7.6 2-10 % Normal 12-13 [facility] (43012) Comment: Order Comment: [place]: M Performed By: #### L500.0140 0, L500.35936, L500.21009, L500.41574, L550.86424 ####[address] [address]Wd# [phone] Neutrophils 1.50 2.0-8.3 K/CU MM Low 12-13-2016 [facility] (27459) Comment: Order Comment: [place]: M Performed By: #### L500.0140 0, L500.61906, L500.11958, L500.72211, L550.77970 ####[address] [address]Zc# [phone] Neutrophils/100 WBC Auto (Bld) 23.0 45-75 % Low 12-13-2016 [facility] (00 000) Comment: Order Comment: [place]: M Performed By: #### L500.0140 0, L500.78459, L500.46750, L500.61514, L550.13181 ####[address] [address]Vn# [phone] Platelet mean volume (PMV) 9.1 9.4-12.4 fL Low [facility] (18425) Comment: Order Comment: [place]: M Performed By: #### L500.0140 0, L500.17866, L500.59690, L500.47533, L550.08265 ####[facility] KAQQVBHZFW5335 [place], [place] [address]Bi# [phone] Platelets 233 150-450 K/CU MM Normal 12-13-2016 [facility] (55918) Comment: Order Comment: [place]: M Performed By: #### L500.0140 0, L500.27734, L500.25795, L500.67504, L550.14705 ####[facility] ALPJASRNVI1233 [place], [place] [address]Hw# [phone] WBC (Leukocytes) 6.5 4.5-11.0 K/CU MM Normal 12-13-2016 [facility] (70664) Comment: Order Comment: [place]: M Performed By: #### L500.0140 0, L500.90706, L500.03246, L500.30333, L550.79671 ####[address] [address]Te# [phone] mrsa pcr on 2016-11 MRSA PCR NEGATIVE NEGATIVE Normal 12-08-2016 [facility] (55602) Comment: Order Comment: [place]: M Result Comment: PLEASE NOTE: TESTING DONE BY PCR TECHNOLOGY. Performed By: #### L500.0140 0, L500.09061, L500.28964, L500.47255, L550.24126 ####[facility] RGZIBJLZZM3422 [place], [place] [address]Dg# [phone] SA PCR NEGATIVE NEGATIVE Normal 12-08-2016 [facility] (53284) Comment: Order Comment: [place]: M Result Comment: PLEASE NOTE: TESTING DONE BY PCR TECHNOLOGY. Performed By: #### L500.0140 0, L500.15308, L500.53684, L500.91308, L550.89933 ####[facility] SUBCOFOCAN[address] [place] [address]Dp# [phone] gfr est on IF AMER Greater than 60 Normal 12-09-[address] [place] [address] (71281) Comment: Order Comment: [place]: M Performed By: #### L500.0140 0, L500.68615, L500.07258, L500.27322, L550.54465 ####[facility] ZRJEADTVTL7951 [place], [place] [address]Im# [phone] IF non-AFR AMER Greater than 60 Normal 12-09-[address] [place] [address] ([address]) Comment: Order Comment: [place]: M Performed By: #### L500.0140 0, L500.57739, L500.68404, L500.87211, L550.12283 ####[facility] VYBESROYJX4853 [place], [place] [address]Cp# [phone] cmp on 2016-12-08 Alanine aminotransferase (ALT) 61 13-61 IU/L Normal 12-08-2016 [facility] (00 000) Comment: Order Comment: [place]: M Performed By: #### L500.0140 0, L500.37485, L500.45250, L500.12756, L550.15608 ####[facility] XWJLSWOEIL0028 [place], [place] [address]Ai# [phone] Albumin 4.0 3.2-5.0 GM/DL Normal 12-08-2016 [facility] (46707) Comment: Order Comment: [place]: M Performed By: #### L500.0140 0, L500.34451, L500.79386, L500.96507, L550.35011 ####[facility] CZBOOUKRZZ2920 [place], [place] [address]Fd# [phone] Albumin/Globulin Ratio 1.0 0.8-2.0 {ratio} Normal [address] [place] [address] (00 000) Comment: Order Comment: [place]: M Performed By: #### L500.0140 0, L500.77181, L500.12206, L500.77229, L550.59804 ####[facility] KPLAZZAHDR5542 [place], [place] [address]Sc# [phone] ALK PHOS 139 45-117 U/L High 12-08-2016 [facility] (30502) Comment: Order Comment: [place]: M Performed By: #### L500.0140 0, L500.25091, L500.49963, L500.93614, L550.02760 ####[facility] TOVOGIJLRW0532 [place], [place] [address]Ke# [phone] Anion gap 5 5-16 MMOL/L Normal 12-08-2016 [facility] (67094) Comment: Order Comment: [place]: M Performed By: #### L500.0140 0, L500.76370, L500.80761, L500.25895, L550.39710 ####[facility] [address]KSVCAEVT[address] [place] [address]Cw# [phone] BILI TOTAL 0.4 0.2-1.0 MG/DL Normal 12-08-2016 [facility] (88415) Comment: Order Comment: [place]: M Performed By: #### L500.0140 0, L500.14076, L500.59124, L500.45282, L550.97149 ####[facility] DXOXPDJPKI6115 [place], [place] [address]Gd# [phone] BUN/Creatinine Ratio 17 15-24 mg/mg Normal 7 [facility] (95389) Comment: Order Comment: [place]: M Performed By: #### L500.0140 0, L500.79138, L500.36685, L500.40381, L550.44143 ####[facility] LQNSRZJMRO5366 [place], [place] [address]Qk# [phone] Calcium 9.4 8.5-10.1 MG/DL Normal 12-08-2016 [facility] (12155) Comment: Order Comment: [place]: M Performed By: #### L500.0140 0, L500.46662, L500.82883, L500.57052, L550.35458 ####[facility] ZKLMHVRSEX5801 [place], [place] [address]Aw# [phone] Chloride 99 98-107 MMOL/L Normal 12-08-2016 [facility] (35556) Comment: Order Comment: [place]: M Performed By: #### L500.0140 0, L500.69835, L500.69833, L500.35651, L550.18182 ####[facility] UUUMKDDUCC8696 [place], [place] [address]Pn# [phone] CO2 32 21-32 MMOL/L Normal 12-08-2016 [facility] (65276) Comment: Order Comment: [place]: M Performed By: #### L500.0140 0, L500.96729, L500.79271, L500.72103, L550.92052 ####[facility] UPIJSBWXYU4815 [place], [place] [address]Xh# [phone] Creatinine 0.784 0.670-1.170 MG/DL Normal 12-08-2016 [facility] (35530) Comment: Order Comment: [place]: M Result Comment: Patients rec eiving either N-Acetylcysteine (NAC) orMetamizole prior to venipu ncture, may have falsely depressedresults. Performed By: #### L500.0140 0, L500.89082, L500.20801, L500.30691, L550.59953 ####[facility] ELUAQGUFAW9903 [place], [place] [address]Hj# [phone] Globulin 4.1 2.2-4.2 GM/DL Normal 12-08-2016 [facility] (17141) Comment: Order Comment: [place]: M Performed By: #### L500.0140 0, L500.15243, L500.55537, L500.29803, L550.29052 ####[facility] EHMLNDIYOG3475 [place], [place] [address]Oh# [phone] Glucose mass conc 89 70-100 MG/DL Normal 12-08-2016 [facility] (28803) Comment: Order Comment: [place]: M Result Comment: 73-382-Smprk l Fasting; 372-014-Qxpahmbo Fasting; greaterthan 126 on more than one result- Diabetes. ADA guidelines Performed By: #### L500.0140 0, L500.43030, L500.66296, L500.07496, L550.29270 ####[facility] VCDZENSEJJ3374 [place], [place] [address]Yl# [phone] Potassium molar conc 4.5 3.5-5.1 MMOL/L Normal 7 [facility] (96132) Comment: Order Comment: [place]: M Performed By: #### L500.0140 0, L500.51393, L500.00461, L500.11672, L550.01625 ####[facility] IQMRBALAKE9498 [place], [place] [address]Rf# [phone] Protein 8.1 6.0-8.5 GM/DL Normal 12-08-2016 [facility] (24129) Comment: Order Comment: [place]: M Performed By: #### L500.0140 0, L500.30528, L500.38257, L500.59498, L550.35317 ####[facility] SQNGMCLBDS1146 [place], [place] [address]Jm# [phone] SGOT (AST) 42 8-34 U/L High 12-08-2016 [facility] (67671) Comment: Order Comment: [place]: M Performed By: #### L500.0140 0, L500.25351, L500.73757, L500.36346, L550.63803 ####[facility] EWVMPSGUVW8054 [place], [place] [address]Xc# [phone] Sodium 136 136-145 MMOL/L Normal 12-08-2016 [facility] (30402) Comment: Order Comment: [place]: M Performed By: #### L500.0140 0, L500.51541, L500.25781, L500.14642, L550.46180 ####[facility] FRMSPKMAIH1933 [place], [place] [address]Mh# [phone] Urea nitrogen 13 7-26 MG/DL Normal 12-08-2016 [facility] (83396) Comment: Order Comment: [place]: M Performed By: #### L500.0140 0, L500.68326, L500.03033, L500.68334, L550.98068 ####[facility] JGWFBOYERG5017 [place], [place] [address]Db# [phone] cbc w/diff on 12-08 BASO ABS 0.10 0-0.2 K/CU MM Normal 12-08-2016 [facility] (99508) Comment: Order Comment: [place]: M Performed By: #### L500.0140 0, L500.00636, L500.42819, L500.12229, L550.58351 ####[facility] QJDILRIPDQ5691 [place], [place] [address]St# [phone] Basophils/100 WBC Auto (Bld) 1.1 0-2 % Normal 0 12-08-2016 [facility] (73322) Comment: Order Comment: [place]: M Performed By: #### L500.0140 0, L500.30333, L500.32784, L500.51704, L550.60490 ####[facility] YAIJNZOCTS0669 [place], [place] [address]Xp# [phone] EOS ABS 0.30 0-0.5 K/CU MM Normal 12-08-2016 [facility] (46352) Comment: Order Comment: [place]: M Performed By: #### L500.0140 0, L500.14632, L500.54599, L500.48255, L550.65982 ####[facility] OUGRONVOKA1360 [place], [place] [address]Iu# [phone] Eosinophils/100 leukocytes 3.3 0-5 % Normal [facility] (85631) Comment: Order Comment: [place]: M Performed By: #### L500.0140 0, L500.62218, L500.57927, L500.06067, L550.09426 ####[facility] SZBJEUJNHW7776 [place], [place] [address]Aq# [phone] Erythrocyte distribution 13.3 11-14.5 % Normal 12-08 [facility] width Auto Ratio (RBC) [place] (06533) Comment: Order Comment: [place]: M Performed By: #### L500.0140 0, L500.37143, L500.15600, L500.43556, L550.06808 ####[facility] JHCZHORQFN3395 [place], [place] [address]Kv# [phone] Erythrocytes (RBC) 4.66 4.50-6.00 M/CU MM Normal 12-08-2016 [facility] (00 000) Comment: Order Comment: [place]: M Performed By: #### L500.0140 0, L500.22826, L500.45376, L500.17741, L550.74159 ####[facility] EGQMWCXAKI3007 [place], [place] [address]Cx# [phone] Erythrocytes (RBC) 0.0 Less than 1 % Normal [address] [place] [address] ([address]) Comment: Order Comment: [place]: M Performed By: #### L500.0140 0, L500.49620, L500.86853, L500.50747, L550.34873 ####[facility] EMBCAPJNMS9254 [place], [place] [address]Az# [phone] Hematocrit (HCT) 39.8 41.0-53.0 % Low 12-08-2016 [facility] (11443) Comment: Order Comment: [place]: M Performed By: #### L500.0140 0, L500.38010, L500.24296, L500.17887, L550.10669 ####[facility] ALIOCKWPID8732 [place], [place] [address]Mm# [phone] Hemoglobin mass conc (Bld) 13.1 13.5-17.5 G/DL Low [facility] (00 000) Comment: Order Comment: [place]: M Performed By: #### L500.0140 0, L500.10400, L500.51830, L500.12291, L550.45650 ####[facility] RBROWAJRWO2146 [place], [place] [address]Di# [phone] IMMATR GRAN ABS 0.00 Less than 2 K/CU MM Normal 12-08-2016 [facility] (00 000) Comment: Order Comment: [place]: M Performed By: #### L500.0140 0, L500.62849, L500.33860, L500.03924, L550.24688 ####[place] [address] [place], [place] [address]Mc# [phone] IMMATURE GRAN % 0.5 Less than 2 % Normal 12-08-2016 [facility] (21507) Comment: Order Comment: [place]: M Performed By: #### L500.0140 0, L500.30747, L500.83985, L500.24892, L550.75073 ####[facility] [id number] [place], [place] [address]Ez# [phone] Lymphocytes 3.90 0.9-4.4 K/CU MM Normal 12-08-2016 [facility] ([address]407) Comment: Order Comment: [place]: M Performed By: #### L500.0140 0, L500.39292, L500.34018, L500.36460, L550.63402 ####[facility] [id number] [place] [address]Of# [phone] Lymphocytes/100 leukocytes 52.3 20-40 % High [facility] ([address]) Comment: Order Comment: [place]: M Performed By: #### L500.0140 0, L500.90744, L500.78887, L500.00759, L550.34012 ####[facility] [id number] [place], [place] [address]Dh# [phone] MCHC mass conc (RBC) 32.9 32.0-36.0 GM/DL Normal 7 [facility] (00 000) Comment: Order Comment: [place]: M Performed By: #### L500.0140 0, L500.98362, L500.42537, L500.56170, L550.27125 ####[facility] [id number] [place], [place] [address]Jv# [phone] MCV 85.4 80.0-99.0 fl Normal 12-08-2016 [facility] (18573) Comment: Order Comment: [place]: M Performed By: #### L500.0140 0, L500.98223, L500.83845, L500.49709, L550.19004 ####[facility] [id number] [place], [place] [address]Wj# [phone] MONO ABS 0.70 0.1-1.1 K/CU MM Normal 12-08-2016 [facility] (86329) Comment: Order Comment: [place]: M Performed By: #### L500.0140 0, L500.43782, L500.52251, L500.76499, L550.71597 ####[facility] [id number] [place], [place] [address]Lp# [phone] Monocytes/100 leukocytes 9.6 2-10 % Normal 12-08 [facility] (44690) Comment: Order Comment: [place]: M Performed By: #### L500.0140 0, L500.25726, L500.18578, L500.02987, L550.81935 ####[facility] [id number] [place], [place] [address]Yj# [phone] Neutrophils 2.50 2.0-8.3 K/CU MM Normal 12-08-2016 [facility] (76074) Comment: Order Comment: [place]: M Performed By: #### L500.0140 0, L500.56143, L500.68558, L500.52090, L550.94627 ####[facility] [id number] [place], [place] [address]Zq# [phone] Neutrophils/100 WBC Auto (Bld) 33.2 45-75 % Low 12-08-2016 [facility] (00 000) Comment: Order Comment: [place]: M Performed By: #### L500.0140 0, L500.67481, L500.86288, L500.86727, L550.02270 ####[facility] [id number] [place], [place] [address]Sg# [phone] Platelet mean volume (PMV) 8.4 9.4-12.4 fL Low [facility] (95666) Comment: Order Comment: [place]: M Performed By: #### L500.0140 0, L500.83239, L500.79884, L500.63527, L550.39821 ####[facility] [id number] [place], [place] [address]Km# [phone] Platelets 309 150-450 K/CU MM Normal 12-08-2016 [facility] ([address]) Comment: Order Comment: [place]: M Performed By: #### L500.0140 0, L500.77006, L500.28317, L500.70485, L550.73219 ####[facility] [id number] [place], [place] [address]Cx# [phone] WBC (Leukocytes) 7.5 4.5-11.0 K/CU MM Normal 12-08-2016 [facility] [place] ([address]) Comment: Order Comment: [place]: M Performed By: #### L500.0140 0, L500.03902, L500.40952, L500.16595, L550.41149 ####[facility] [id number] [place], [place] [address]Yn# [phone] gfr est on IF AMER Greater than 60 Normal 12-07-[address] [place] [address] (88502) Comment: Order Comment: [place]: M Performed By: #### L500.0140 0, L500.95549, L500.30511, L500.07412, L550.72799 ####[facility] QBLYWFNTYD4950 [place], [place] [address]Qf# [phone] IF non-AFR AMER Greater than 60 Normal 12-07-[address] [place] [address] (67765) Comment: Order Comment: [place]: M Performed By: #### L500.0140 0, L500.92919, L500.85051, L500.96917, L550.93175 ####[facility] [address]UN[address] [place] [address]Rk# [phone] cmp on 2016-12-06 Alanine aminotransferase (ALT) 52 13-61 IU/L Normal 12-06-2016 [facility] (00 000) Comment: Order Comment: [place]: M Performed By: #### L500.0140 0, L500.33715, L500.22874, L500.48500, L550.67696 ####[facility] YJYCZHCNZD9022 [place], [place] [address]Mw# [phone] Albumin 3.2 3.2-5.0 GM/DL Normal 12-06-2016 [facility] (85147) Comment: Order Comment: [place]: M Performed By: #### L500.0140 0, L500.89173, L500.79110, L500.04126, L550.56064 ####[facility] ELIDULHQPQ4480 [place], [place] [address]Yd# [phone] Albumin/Globulin Ratio 0.9 0.8-2.0 {ratio} Normal [address] [place] [address] (00 000) Comment: Order Comment: [place]: M Performed By: #### L500.0140 0, L500.94528, L500.60231, L500.84913, L550.27721 ####[facility] RRRHBUOIFF8945 [place], [place] [address]Nw# [phone] ALK PHOS 127 45-117 U/L High 12-06-2016 [facility] (85734) Comment: Order Comment: [place]: M Performed By: #### L500.0140 0, L500.81996, L500.54809, L500.66900, L550.00412 ####[facility] WPYCRLLFLN6801 [place], [place] [address]Sk# [phone] Anion gap 9 5-16 MMOL/L Normal 12-06-2016 [facility] (24355) Comment: Order Comment: [place]: M Performed By: #### L500.0140 0, L500.44738, L500.94179, L500.25563, L550.25452 ####[facility] KWFSEVTFYJ1165 [place], [place] [address]Dr# [phone] BILI TOTAL 0.4 0.2-1.0 MG/DL Normal 12-06-2016 [facility] (77837) Comment: Order Comment: [place]: M Performed By: #### L500.0140 0, L500.50183, L500.12823, L500.36558, L550.82633 ####[facility] UJIGTBPWJX0973 [place], [place] [address]Rd# [phone] BUN/Creatinine Ratio 23 15-24 mg/mg Normal 7 [facility] (22448) Comment: Order Comment: [place]: M Performed By: #### L500.0140 0, L500.85276, L500.05147, L500.74624, L550.58189 ####[facility] SBVYZYPYQY3610 [place], [place] [address]Ks# [phone] Calcium 9.2 8.5-10.1 MG/DL Normal 12-06-2016 [facility] (19399) Comment: Order Comment: [place]: M Performed By: #### L500.0140 0, L500.57935, L500.35475, L500.20668, L550.88367 ####[facility] NVQWATULTT5669 [place], [place] [address]Ed# [phone] Chloride 101 98-107 MMOL/L Normal 12-06-2016 [facility] (35115) Comment: Order Comment: [place]: M Performed By: #### L500.0140 0, L500.25415, L500.97159, L500.29883, L550.61350 ####[facility] FTPZLAFFLI8728 [place], [place] [address]Je# [phone] CO2 28 21-32 MMOL/L Normal 12-06-2016 [facility] (04574) Comment: Order Comment: [place]: M Performed By: #### L500.0140 0, L500.57048, L500.96914, L500.03410, L550.50012 ####[facility] OXTZIVNBDB5383 [place], [place] [address]Rm# [phone] Creatinine 0.726 0.670-1.170 MG/DL Normal 12-06-2016 [facility] (28249) Comment: Order Comment: [place]: M Result Comment: Patients rec eiving either N-Acetylcysteine (NAC) orMetamizole prior to venipu ncture, may have falsely depressedresults. Performed By: #### L500.0140 0, L500.41649, L500.61590, L500.26592, L550.41391 ####[facility] COTQVIXIGT0544 [place], [place] [address]Jf# [phone] Globulin 3.5 2.2-4.2 GM/DL Normal 12-06-2016 [facility] (82003) Comment: Order Comment: [place]: M Performed By: #### L500.0140 0, L500.51540, L500.41851, L500.28158, L550.71130 ####[facility] RCFDYBCGFO6805 [place], [place] [address]Ut# [phone] Glucose mass conc 85 70-100 MG/DL Normal 12-06-2016 [facility] (70254) Comment: Order Comment: [place]: M Result Comment: 66-232-Ohuhr l Fasting; 741-193-Furetewu Fasting; greaterthan 126 on more than one result- Diabetes. ADA guidelines Performed By: #### L500.0140 0, L500.52476, L500.58226, L500.06370, L550.46266 ####[facility] HJUIKLDAUQ1636 [place], [place] [address]Oc# [phone] Potassium molar conc 4.4 3.5-5.1 MMOL/L Normal 7 [facility] (68580) Comment: Order Comment: [place]: M Performed By: #### L500.0140 0, L500.33666, L500.20448, L500.19189, L550.80192 ####[facility] RGKAEAHVHO9629 [place], [place] [address]Pr# [phone] Protein 6.7 6.0-8.5 GM/DL Normal 12-06-2016 [facility] (96417) Comment: Order Comment: [place]: M Performed By: #### L500.0140 0, L500.50735, L500.54665, L500.77587, L550.10969 ####[facility] IDVCBJJFWQ0494 [place], [place] [address]Pd# [phone] SGOT (AST) 37 8-34 U/L High 12-06-2016 [facility] (69811) Comment: Order Comment: [place]: M Performed By: #### L500.0140 0, L500.11757, L500.54798, L500.41964, L550.60478 ####[facility] DMYXKJAZUT3232 [place], [place] [address]Mk# [phone] Sodium 138 136-145 MMOL/L Normal 12-06-2016 [facility] (19277) Comment: Order Comment: [place]: M Performed By: #### L500.0140 0, L500.54472, L500.06068, L500.14177, L550.02036 ####[address] [place], [place] [address]Nl# [phone] Urea nitrogen 17 7-26 MG/DL Normal 12-06-2016 [facility] (36304) Comment: Order Comment: [place]: M Performed By: #### L500.0140 0, L500.63316, L500.26786, L500.38643, L550.85499 ####[address] [address]Xq# [phone] cbc w/diff on 12-06 EOS ABS 0.29 0-0.5 K/CU MM Normal 12-06-2016 [facility] (25632) Comment: Order Comment: [place]: M Performed By: #### L500.0140 0, L500.38612, L500.63333, L500.47182, L550.83701 ####[address] [place], [place] [address]Wd# [phone] Eosinophils/100 leukocytes 4.0 0-5 % Normal [facility] (35748) Comment: Order Comment: [place]: M Performed By: #### L500.0140 0, L500.61786, L500.32426, L500.80237, L550.01654 ####[facility]13[address] [place], [place] [address]Lt# [phone] Lymphocytes 3.96 0.9-4.4 K/CU MM Normal 12-06-2016 [facility] (68541) Comment: Order Comment: [place]: M Performed By: #### L500.0140 0, L500.65118, L500.43162, L500.31856, L550.32791 ####[address] [address]Yd# [phone] Lymphocytes PRESENT Normal 12-06-2016 [facility] (58226) Comment: Order Comment: [place]: M Performed By: #### L500.0140 0, L500.00430, L500.00102, L500.03234, L550.84844 ####[address] [address]Ld# [phone] Lymphocytes/100 leukocytes 55.0 20-40 % High [facility] (73163) Comment: Order Comment: [place]: M Performed By: #### L500.0140 0, L500.68704, L500.07634, L500.22464, L550.57501 ####[address] [address]Gx# [phone] MONO ABS 0.72 0.1-1.1 K/CU MM Normal 12-06-2016 [facility] (08608) Comment: Order Comment: [place]: M Performed By: #### L500.0140 0, L500.96342, L500.75013, L500.03112, L550.66209 ####[address] [address]Pr# [phone] Monocytes/100 leukocytes 10.0 2-10 % Normal 12-06 [facility] (06263) Comment: Order Comment: [place]: M Performed By: #### L500.0140 0, L500.12808, L500.17169, L500.40496, L550.07891 ####[address] [address]Eu# [phone] Neutrophils 2.23 2.0-8.3 K/CU MM Normal 12-06-2016 [facility] (97013) Comment: Order Comment: [place]: M Performed By: #### L500.0140 0, L500.28424, L500.83102, L500.19223, L550.50752 ####[address] [address]Ex# [phone] Neutrophils/100 WBC Auto (Bld) 31.0 45-75 % Low 12-06-2016 [facility] (00 000) Comment: Order Comment: [place]: M Performed By: #### L500.0140 0, L500.90347, L500.48854, L500.09772, L550.08427 ####[facility] MRQDMAGUSM0436 [place], [place] [address]Rt# [phone] PLT EST ADEQUATE Normal 12-06-2016 [facility] (41983) Comment: Order Comment: [place]: M Performed By: #### L500.0140 0, L500.03483, L500.09350, L500.16969, L550.98424 ####[facility] CTXDEUJKLK5589 [place], [place] [address]Qs# [phone] POLY 1+ Normal 12-06-2016 [facility] (95948) Comment: Order Comment: [place]: M Performed By: #### L500.0140 0, L500.81737, L500.40007, L500.40502, L550.05476 ####[facility] SHTMZZXLAT8843 [place], [place] [address]We# [phone] Erythrocyte distribution 13.2 11-14.5 % Normal 12-06 [facility] width Auto Ratio (RBC) [place] (33497) Comment: Order Comment: [place]: M Performed By: #### L500.0140 0, L500.32480, L500.77688, L500.56152, L550.16923 ####[facility] LWXLLSLOTM2816 [place], [place] [address]Li# [phone] Erythrocytes (RBC) 0.0 Less than 1 % Normal 7 [facility] (27257) Comment: Order Comment: [place]: M Performed By: #### L500.0140 0, L500.87761, L500.58025, L500.59839, L550.54918 ####[facility] TPAHAPCDYI0917 [place], [place] [address]Vg# [phone] Erythrocytes (RBC) 4.25 4.50-6.00 M/CU MM Low 12-06-2016 [facility] (30087) Comment: Order Comment: [place]: M Performed By: #### L500.0140 0, L500.03301, L500.19870, L500.38040, L550.49776 ####[facility] JRPTLYMUNY0244 [place], [place] [address]Av# [phone] Hematocrit (HCT) 36.3 41.0-53.0 % Low 12-06-2016 [facility] (61313) Comment: Order Comment: [place]: M Performed By: #### L500.0140 0, L500.35151, L500.77679, L500.02953, L550.05046 ####[facility] WWCZNWKFHP0303 [place], [place] [address]Zt# [phone] Hemoglobin mass conc (Bld) 12.1 13.5-17.5 G/DL Low [facility] (00 000) Comment: Order Comment: [place]: M Performed By: #### L500.0140 0, L500.34950, L500.37315, L500.87225, L550.21172 ####[facility] MQHMHZQTXL0392 [place], [place] [address]Zq# [phone] MCHC mass conc (RBC) 33.3 32.0-36.0 GM/DL Normal 7 [facility] (00 000) Comment: Order Comment: [place]: M Performed By: #### L500.0140 0, L500.22441, L500.73974, L500.86860, L550.85383 ####[facility] ULAOLWAXUM9983 [place], [place] [address]Tp# [phone] MCV 85.4 80.0-99.0 fl Normal 12-06-2016 [facility] (36209) Comment: Order Comment: [place]: M Performed By: #### L500.0140 0, L500.41727, L500.54964, L500.20733, L550.33249 ####[facility] NXFHNKEZNV9403 [place], [place] [address]Kd# [phone] Platelet mean volume (PMV) 9.1 9.4-12.4 fL Low [facility] (89582) Comment: Order Comment: [place]: M Performed By: #### L500.0140 0, L500.50034, L500.47421, L500.00478, L550.16769 ####[facility] WQXLFOHDIM2353 [place], [place] [address]Dw# [phone] Platelets 259 150-450 K/CU MM Normal 12-06-2016 [facility] (67260) Comment: Order Comment: [place]: M Performed By: #### L500.0140 0, L500.71297, L500.09141, L500.80616, L550.57437 ####[facility] MGKVBBJFPE9139 [place], [place] [address]Wc# [phone] WBC (Leukocytes) 7.2 4.5-11.0 K/CU MM Normal 12-06-2016 [facility] (61147) Comment: Order Comment: [place]: M Performed By: #### L500.0140 0, L500.57688, L500.30902, L500.02476, L550.52769 ####[facility] TIKIKEFZSH1483 [place], [place] [address]Al# [phone] hcv genotyping on 2 HCV GENOTYPE TNP Normal 11-26-2016 [facility] (28259) Comment: Order Comment: [place]: M Result Comment: Specimen has insufficient hepatitis C virus RNA to obtaingenotyping results. Th is genotyping assay should only beused for known HCV positive patients with H CV RNA levelsabove 1000 IU/mL. Performed By: #### L500.0140 0, L500.61379, L500.28881, L500.37173, L550.76158 ####[facility] TGKUJRKAGG5874 [place], [place] [address]Ne# [phone] NOTE HCV GTYPE: TNP Normal 11-26-2016 [facility] (14017) Comment: Order Comment: [place]: M Result Comment: This test wa s developed and its performance characteristicsdetermined by [facility]. It has not been cleared or approvedby the U.S. Food and Drug Admin istration.The FDA has determined that such clearance or approval isnot necessary. This test is used for clinical purposes. Itshould not be re garded as investigational or for research.Performed At: [facility] [address] [id number] Joaquín Dougherty [id number] Performed By: #### L500.0140 0, L500.64403, L500.67245, L500.35482, L550.19250 ####[facility] GXDEOENTEB8399 [place], [place] [address]Ed# [phone] gfr est on IF AMER Greater than 60 Normal 11-27-[address] [place] [address] (97866) Comment: Order Comment: [place]: M Performed By: #### L500.0140 0, L500.05011, L500.01532, L500.58213, L550.13985 ####[facility] NOWOWTQGYS3574 [place], [place] [address]Ze# [phone] IF non-AFR AMER Greater than 60 Normal 11-27-[address] [place] [address] (51162) Comment: Order Comment: [place]: M Performed By: #### L500.0140 0, L500.48229, L500.88359, L500.02728, L550.01915 ####[facility] XRNWGNANSX0523 [place], [place] [address]Vq# [phone] cmp on 2016-11-26 Alanine aminotransferase (ALT) 37 13-61 IU/L Normal 11-26-2016 [facility] (00 000) Comment: Order Comment: [place]: M Performed By: #### L500.0140 0, L500.83785, L500.74273, L500.27324, L550.34835 ####[facility] WDRNBACSCC2471 [place], [place] [address]Bs# [phone] Albumin 2.9 3.2-5.0 GM/DL Low 11-26-2016 [facility] (32513) Comment: Order Comment: [place]: M Performed By: #### L500.0140 0, L500.63167, L500.47461, L500.19399, L550.47872 ####[facility] IOHAMHCEGB3166 [place], [place] [address]Zh# [phone] Albumin/Globulin Ratio 0.9 0.8-2.0 {ratio} Normal 017 [facility] (00 000) Comment: Order Comment: [place]: M Performed By: #### L500.0140 0, L500.24016, L500.30860, L500.84927, L550.02187 ####[facility] KOHHKWRMSN4391 [place], [place] [address]Af# [phone] ALK PHOS 127 45-117 U/L High 11-26-2016 [facility] (53686) Comment: Order Comment: [place]: M Performed By: #### L500.0140 0, L500.52157, L500.76160, L500.69979, L550.46601 ####[facility] GFEQCFJAWG3040 [place], [place] [address]Yu# [phone] Anion gap 7 5-16 MMOL/L Normal 11-26-2016 [facility] (66507) Comment: Order Comment: [place]: M Performed By: #### L500.0140 0, L500.91875, L500.21254, L500.22829, L550.18296 ####[facility] XAZUBFQGQG7983 [place], [place] [address]Na# [phone] BILI TOTAL 0.3 0.2-1.0 MG/DL Normal 11-26-2016 [facility] (61087) Comment: Order Comment: [place]: M Performed By: #### L500.0140 0, L500.11172, L500.92639, L500.41028, L550.34413 ####[facility] LTHIJHYCBK2544 [place], [place] [address]Tj# [phone] BUN/Creatinine Ratio 12 15-24 mg/mg Low 7 [facility] (79530) Comment: Order Comment: [place]: M Performed By: #### L500.0140 0, L500.43296, L500.93058, L500.19376, L550.27289 ####[facility] XMYIUWQTEL4293 [place], [place] [address]Px# [phone] Calcium 8.5 8.5-10.1 MG/DL Normal 11-26-2016 [facility] (14155) Comment: Order Comment: [place]: M Performed By: #### L500.0140 0, L500.06934, L500.05048, L500.23254, L550.99777 ####[facility] PQJCIMTCPR7630 [place], [place] [address]Zo# [phone] Chloride 105 98-107 MMOL/L Normal 11-26-2016 [facility] (07541) Comment: Order Comment: [place]: M Performed By: #### L500.0140 0, L500.15254, L500.03305, L500.84870, L550.74777 ####[facility] GBFZXYSUZG8124 [place], [place] [address]Hx# [phone] CO2 28 21-32 MMOL/L Normal 11-26-2016 [facility] (79145) Comment: Order Comment: [place]: M Performed By: #### L500.0140 0, L500.09220, L500.40421, L500.98625, L550.07193 ####[facility] LCIJDOWPUW6789 [place], [place] [address]Nn# [phone] Creatinine 0.646 0.670-1.170 MG/DL Low 11-26-2016 [facility] (07680) Comment: Order Comment: [place]: M Result Comment: Patients rec eiving either N-Acetylcysteine (NAC) orMetamizole prior to venipu ncture, may have falsely depressedresults. Performed By: #### L500.0140 0, L500.25600, L500.27963, L500.79764, L550.49294 ####[facility] HGHLEEJFVH3407 [place], [place] [address]Wa# [phone] Globulin 3.1 2.2-4.2 GM/DL Normal 11-26-2016 [facility] (36631) Comment: Order Comment: [place]: M Performed By: #### L500.0140 0, L500.84088, L500.13263, L500.27492, L550.05774 ####[facility] RZCHMCNHRY5189 [place], [place] [address]On# [phone] Glucose mass conc 91 70-100 MG/DL Normal 11-26-2016 [facility] (04353) Comment: Order Comment: [place]: M Result Comment: 30-222-Tokhm l Fasting; 859-073-Djhnissv Fasting; greaterthan 126 on more than one result- Diabetes. ADA guidelines Performed By: #### L500.0140 0, L500.06836, L500.96088, L500.76804, L550.93106 ####[facility] XDILHGCYJV2630 [place], [place] [address]Nv# [phone] Potassium molar conc 4.0 3.5-5.1 MMOL/L Normal 7 [facility] (05261) Comment: Order Comment: [place]: M Performed By: #### L500.0140 0, L500.87326, L500.85136, L500.37707, L550.25754 ####[facility] MLPZKLPFNI0135 [place], [place] [address]Hz# [phone] Protein 6.0 6.0-8.5 GM/DL Normal 11-26-2016 [facility] (20006) Comment: Order Comment: [place]: M Performed By: #### L500.0140 0, L500.19434, L500.80282, L500.48680, L550.55166 ####[facility] KJIMVUZOLM5815 [place], [place] [address]Ps# [phone] SGOT (AST) 27 8-34 U/L Normal 11-26-2016 [facility] (51824) Comment: Order Comment: [place]: M Performed By: #### L500.0140 0, L500.26806, L500.37995, L500.46057, L550.54018 ####[facility] BBJPNSAXWN8156 [place], [place] [address]Vh# [phone] Sodium 140 136-145 MMOL/L Normal 11-26-2016 [facility] (37127) Comment: Order Comment: [place]: M Performed By: #### L500.0140 0, L500.49110, L500.14097, L500.42611, L550.40157 ####[facility] FUYWEEUGCQ5933 [place], [place] [address]Wo# [phone] Urea nitrogen 8 7-26 MG/DL Normal 11-26-2016 [facility] (33525) Comment: Order Comment: [place]: M Performed By: #### L500.0140 0, L500.22957, L500.08473, L500.57703, L550.93235 ####[facility] AUQJSVOHNA3007 [place], [place] [address]Zo# [phone] cbc w/diff on 11-26 BASO ABS 0.10 0-0.2 K/CU MM Normal 11-26-2016 [facility] (75905) Comment: Order Comment: [place]: M Performed By: #### L500.0140 0, L500.96597, L500.58626, L500.96413, L550.57832 ####[facility] ZUXHHIDKRC6230 [place], [place] [address]Ps# [phone] Basophils/100 WBC Auto (Bld) 1.0 0-2 % Normal 0 11-26-2016 [facility] (90992) Comment: Order Comment: [place]: M Performed By: #### L500.0140 0, L500.56391, L500.81007, L500.99478, L550.67518 ####[address] [address]Ak# [phone] EOS ABS 0.50 0-0.5 K/CU MM Normal 11-26-2016 [facility] (52544) Comment: Order Comment: [place]: M Performed By: #### L500.0140 0, L500.35428, L500.75162, L500.92085, L550.33865 ####[address] [address]Vw# [phone] Eosinophils/100 leukocytes 11.0 0-5 % High [facility] (33985) Comment: Order Comment: [place]: M Performed By: #### L500.0140 0, L500.52303, L500.22026, L500.74996, L550.42816 ####[address] [address]Ri# [phone] IMMATR GRAN ABS 0.00 Less than 2 K/CU MM Normal 11-26-2016 [facility] (00 000) Comment: Order Comment: [place]: M Performed By: #### L500.0140 0, L500.29791, L500.79574, L500.62089, L550.91825 ####[address] [address]Cq# [phone] IMMATURE GRAN % 0.8 Less than 2 % Normal 11-26-2016 [facility] (15631) Comment: Order Comment: [place]: M Performed By: #### L500.0140 0, L500.47875, L500.97263, L500.39271, L550.23219 ####[facility]13[address] [place], [place] [address]Lw# [phone] Lymphocytes PRESENT Normal 11-26-2016 [facility] (78345) Comment: Order Comment: [place]: M Performed By: #### L500.0140 0, L500.69072, L500.85364, L500.55751, L550.22162 ####[address] [address]Zg# [phone] Lymphocytes 2.30 0.9-4.4 K/CU MM Normal 11-26-2016 [facility] (89511) Comment: Order Comment: [place]: M Performed By: #### L500.0140 0, L500.33404, L500.90644, L500.50562, L550.34232 ####[address] [address]Yj# [phone] Lymphocytes/100 leukocytes 47.9 20-40 % High [facility] (39041) Comment: Order Comment: [place]: M Performed By: #### L500.0140 0, L500.71012, L500.60355, L500.05900, L550.91962 ####[address] [place], [place] [address]Xr# [phone] MONO ABS 0.30 0.1-1.1 K/CU MM Normal 11-26-2016 [facility] (84703) Comment: Order Comment: [place]: M Performed By: #### L500.0140 0, L500.44566, L500.90260, L500.13750, L550.40868 ####[address] [place], [place] [address]Cb# [phone] Monocytes/100 leukocytes 7.0 2-10 % Normal 11-26 [facility] (87167) Comment: Order Comment: [place]: M Performed By: #### L500.0140 0, L500.81327, L500.34524, L500.63941, L550.23535 ####[facility] [id number] [place], [place] [address]Qm# [phone] Neutrophils 1.60 2.0-8.3 K/CU MM Low 11-26-2016 [facility] ([address]) Comment: Order Comment: [place]: M Performed By: #### L500.0140 0, L500.22779, L500.88840, L500.90364, L550.91857 ####[facility] [id number] [place], [place] [address]At# [phone] Neutrophils/100 WBC Auto (Bld) 32.3 45-75 % Low 11-26-2016 [facility] (00 000) Comment: Order Comment: [place]: M Performed By: #### L500.0140 0, L500.55691, L500.79919, L500.75740, L550.37449 ####[facility] [id number] [place], [place] [address]Tl# [phone] PLT EST SLT DECREASED Normal 11-26-2016 [facility] ([address]) Comment: Order Comment: [place]: M Performed By: #### L500.0140 0, L500.16946, L500.87005, L500.41902, L550.51164 ####[facility] [id number] [place], [place] [address]Vf# [phone] POLY 1+ Normal 11-26-2016 [facility] ([address]84) Comment: Order Comment: [place]: M Performed By: #### L500.0140 0, L500.52930, L500.21931, L500.56386, L550.66185 ####[facility] [id number] [place], [place] [address]Kr# [phone] Erythrocyte distribution 12.9 11-14.5 % Normal 11-26 [facility] width Auto Ratio (RBC) [place] ([address]) Comment: Order Comment: [place]: M Performed By: #### L500.0140 0, L500.33794, L500.49636, L500.62648, L550.76501 ####[facility] [id number] [place], [place] [address]Yp# [phone] Erythrocytes (RBC) 3.81 4.50-6.00 M/CU MM Low 11-26-2016 [facility] ([address]) Comment: Order Comment: [place]: M Performed By: #### L500.0140 0, L500.52141, L500.07406, L500.87482, L550.89448 ####[facility] [id number] [place], [place] [address]Mo# [phone] Erythrocytes (RBC) 0.0 Less than 1 % Normal 7 [facility] ([address]) Comment: Order Comment: [place]: M Performed By: #### L500.0140 0, L500.74360, L500.47701, L500.04855, L550.53159 ####[facility] [id number] [place], [place] [address]Vc# [phone] Hematocrit (HCT) 31.9 41.0-53.0 % Low 11-26-2016 [facility] ([address]) Comment: Order Comment: [place]: M Performed By: #### L500.0140 0, L500.54542, L500.54707, L500.95146, L550.92793 ####[facility] [id number] [place], [place] [address]Pu# [phone] Hemoglobin mass conc (Bld) 11.0 13.5-17.5 G/DL Low [facility] (00 000) Comment: Order Comment: [place]: M Performed By: #### L500.0140 0, L500.77116, L500.41789, L500.79501, L550.08203 ####[facility] [id number] [place], [place] [address]Lx# [phone] MCHC mass conc (RBC) 34.5 32.0-36.0 GM/DL Normal 7 [facility] (00 000) Comment: Order Comment: [place]: M Performed By: #### L500.0140 0, L500.30641, L500.63978, L500.60438, L550.87033 ####[facility] [id number] [place], [place] [address]Lt# [phone] MCV 83.7 80.0-99.0 fl Normal 11-26-2016 [facility] [facility] (31782) Comment: Order Comment: [place]: M Performed By: #### L500.0140 0, L500.68501, L500.61639, L500.33175, L550.31997 ####[address] [place], [place] [address]Hh# [phone] Platelet mean volume (PMV) 9.3 9.4-12.4 fL Low [facility] (80752) Comment: Order Comment: [place]: M Performed By: #### L500.0140 0, L500.98044, L500.94568, L500.08979, L550.52613 ####[facility] PIMTIOEBTW0152 [place], [place] [address]Ko# [phone] Platelets 148 150-450 K/CU MM Low 11-26-2016 [facility] (54749) Comment: Order Comment: [place]: M Performed By: #### L500.0140 0, L500.89659, L500.94153, L500.50665, L550.93800 ####[facility] RUQRVSPIZC7480 [place], [place] [address]Ku# [phone] WBC (Leukocytes) 4.8 4.5-11.0 K/CU MM Normal 11-26-2016 [facility] (23380) Comment: Order Comment: [place]: M Performed By: #### L500.0140 0, L500.30560, L500.57853, L500.41658, L550.21724 ####[facility] GWKXIEFVNM9638 [place], [place] [address]Ei# [phone] gfr est on IF AMER Greater than 60 Normal 11-25-[address] [place] [address] (68395) Comment: Order Comment: [place]: M Performed By: #### L500.0140 0, L500.63680, L500.49235, L500.86544, L550.63129 ####[facility] JQMRTCGZEZ3067 [place], [place] [address]Gi# [phone] IF non-AFR AMER Greater than 60 Normal 11-25-[address] [place] [address] (05151) Comment: Order Comment: [place]: M Performed By: #### L500.0140 0, L500.99095, L500.96020, L500.96313, L550.23187 ####[facility] TIDURYCESK3375 [place], [place] [address]Tl# [phone] cmp on 2016-11-24 Alanine aminotransferase (ALT) 36 13-61 IU/L Normal 11-24-2016 [facility] (00 000) Comment: Order Comment: [place]: M Performed By: #### L500.0140 0, L500.44676, L500.65584, L500.47165, L550.76694 ####[facility] KHHIBICDXU5077 [place], [place] [address]Gs# [phone] Albumin 3.1 3.2-5.0 GM/DL Low 11-24-2016 [facility] (03035) Comment: Order Comment: [place]: M Performed By: #### L500.0140 0, L500.36465, L500.43404, L500.80183, L550.16371 ####[facility] AAIDOURMNF8977 [place], [place] [address]Mz# [phone] Albumin/Globulin Ratio 1.0 0.8-2.0 {ratio} Normal [address] [place] [address] (00 000) Comment: Order Comment: [place]: M Performed By: #### L500.0140 0, L500.93814, L500.02348, L500.96484, L550.51538 ####[facility] ZISNLFLBEM5921 [place], [place] [address]Ij# [phone] ALK PHOS 136 45-117 U/L High 11-24-2016 [facility] (33979) Comment: Order Comment: [place]: M Performed By: #### L500.0140 0, L500.22589, L500.86185, L500.26631, L550.64014 ####[facility] YFFRWCHXBR4514 [place], [place] [address]Gl# [phone] Anion gap 6 5-16 MMOL/L Normal 11-24-2016 [facility] (32010) Comment: Order Comment: [place]: M Performed By: #### L500.0140 0, L500.91805, L500.58446, L500.01066, L550.03056 ####[facility] AIIMGMVCCY9658 [place], [place] [address]Gc# [phone] BILI TOTAL 0.4 0.2-1.0 MG/DL Normal 11-24-2016 [facility] (68659) Comment: Order Comment: [place]: M Performed By: #### L500.0140 0, L500.32673, L500.29388, L500.87381, L550.90831 ####[facility] NCSQFETRCG3338 [place], [place] [address]Ng# [phone] BUN/Creatinine Ratio 12 15-24 mg/mg Low 7 [facility] (44092) Comment: Order Comment: [place]: M Performed By: #### L500.0140 0, L500.93322, L500.64343, L500.29186, L550.37837 ####[facility] RLNRNFRFQP1360 [place], [place] [address]Xq# [phone] Calcium 8.6 8.5-10.1 MG/DL Normal 11-24-2016 [facility] (18222) Comment: Order Comment: [place]: M Performed By: #### L500.0140 0, L500.04246, L500.52476, L500.52792, L550.26036 ####[facility] HHFKENZPXE9220 [place], [place] [address]Kj# [phone] Chloride 103 98-107 MMOL/L Normal 11-24-2016 [facility] (24217) Comment: Order Comment: [place]: M Performed By: #### L500.0140 0, L500.56501, L500.76508, L500.85038, L550.18536 ####[facility] AUTJNUXPYB3714 [place], [place] [address]Le# [phone] CO2 30 21-32 MMOL/L Normal 11-24-2016 [facility] (48644) Comment: Order Comment: [place]: M Performed By: #### L500.0140 0, L500.35978, L500.73731, L500.19662, L550.12509 ####[facility] EXZAEQNSKN5714 [place], [place] [address]Ww# [phone] Creatinine 0.992 0.670-1.170 MG/DL Normal 11-24-2016 [facility] (95168) Comment: Order Comment: [place]: M Result Comment: Patients rec eiving either N-Acetylcysteine (NAC) orMetamizole prior to venipu ncture, may have falsely depressedresults. Performed By: #### L500.0140 0, L500.24344, L500.29511, L500.32019, L550.78714 ####[facility] PGUALKQUKI1860 [place], [place] [address]Qy# [phone] Globulin 3.2 2.2-4.2 GM/DL Normal 11-24-2016 [facility] (08890) Comment: Order Comment: [place]: M Performed By: #### L500.0140 0, L500.61782, L500.27426, L500.96752, L550.71076 ####[facility] EBNJDQKNUH6413 [place], [place] [address]Oj# [phone] Glucose mass conc 99 70-100 MG/DL Normal 11-24-2016 [facility] (80819) Comment: Order Comment: [place]: M Result Comment: 78-633-Etydl l Fasting; 781-381-Owntmpvk Fasting; greaterthan 126 on more than one result- Diabetes. ADA guidelines Performed By: #### L500.0140 0, L500.23327, L500.67798, L500.56042, L550.67461 ####[facility] FVSUXLUZGS7410 [place], [place] [address]Zg# [phone] Potassium molar conc 4.0 3.5-5.1 MMOL/L Normal 7 [facility] (01864) Comment: Order Comment: [place]: M Performed By: #### L500.0140 0, L500.17323, L500.94469, L500.04376, L550.12229 ####[facility] ECQRRBKCTH3640 [place], [place] [address]Jj# [phone] Protein 6.3 6.0-8.5 GM/DL Normal 11-24-2016 [facility] (58195) Comment: Order Comment: [place]: M Performed By: #### L500.0140 0, L500.54393, L500.67265, L500.80258, L550.54462 ####[facility] AIGIPZHXDH5087 [place], [place] [address]Vr# [phone] SGOT (AST) 27 8-34 U/L Normal 11-24-2016 [facility] (73802) Comment: Order Comment: [place]: M Performed By: #### L500.0140 0, L500.19168, L500.90380, L500.37023, L550.29605 ####[facility] JJJRXELEXA0060 [place], [place] [address]Lo# [phone] Sodium 139 136-145 MMOL/L Normal 11-24-2016 [facility] (15971) Comment: Order Comment: [place]: M Performed By: #### L500.0140 0, L500.05854, L500.32466, L500.31080, L550.59634 ####[facility] AOOSZZTFZJ2054 [place], [place] [address]Ec# [phone] Urea nitrogen 12 7-26 MG/DL Normal 11-24-2016 [facility] (03156) Comment: Order Comment: [place]: M Performed By: #### L500.0140 0, L500.61969, L500.38620, L500.57206, L550.23723 ####[address] [place], [place] [address]Un# [phone] cbc w/diff on 11-24 BAND % 20.0 0-7 % High 11-24-2016 [facility] (93502) Comment: Order Comment: [place]: M Performed By: #### L500.0140 0, L500.48366, L500.24841, L500.91070, L550.14333 ####[facility]13[address] [place], [place] [address]Zx# [phone] BAND ABS 0.90 K/CU MM Normal 11-24-2016 [facility] (21988) Comment: Order Comment: [place]: M Performed By: #### L500.0140 0, L500.47385, L500.11132, L500.14183, L550.19584 ####[facility] TXACRDZTIK2896 [place], [place] [address]Ie# [phone] EOS ABS 0.50 0-0.5 K/CU MM Normal 11-24-2016 [facility] (43244) Comment: Order Comment: [place]: M Performed By: #### L500.0140 0, L500.23822, L500.59057, L500.04945, L550.76996 ####[facility] TKJBSIYOGQ8203 [place], [place] [address]Uh# [phone] Eosinophils/100 leukocytes 11.0 0-5 % High [facility] (18959) Comment: Order Comment: [place]: M Performed By: #### L500.0140 0, L500.86221, L500.40206, L500.32181, L550.19000 ####[facility] [address]QNV[address]LKEM[address] [place] [address]Dd# [phone] Lymphocytes PRESENT Normal 11-24-2016 [facility] (85819) Comment: Order Comment: [place]: M Performed By: #### L500.0140 0, L500.97815, L500.13659, L500.67697, L550.68101 ####[address] [address]Wb# [phone] Lymphocytes 1.98 0.9-4.4 K/CU MM Normal 11-24-2016 [facility] (07332) Comment: Order Comment: [place]: M Performed By: #### L500.0140 0, L500.05335, L500.22992, L500.67860, L550.23524 ####[address] [place], [place] [address]El# [phone] Lymphocytes/100 leukocytes 44.0 20-40 % High [facility] (39427) Comment: Order Comment: [place]: M Performed By: #### L500.0140 0, L500.50572, L500.22597, L500.68781, L550.62734 ####[address] [address]Bm# [phone] MONO ABS 0.27 0.1-1.1 K/CU MM Normal 11-24-2016 [facility] (64214) Comment: Order Comment: [place]: M Performed By: #### L500.0140 0, L500.51059, L500.44499, L500.41211, L550.05912 ####[facility] PFYEAPQAUW0812 [place], [place] [address]Cx# [phone] Monocytes/100 leukocytes 6.0 2-10 % Normal 11-24 [facility] (31129) Comment: Order Comment: [place]: M Performed By: #### L500.0140 0, L500.33858, L500.53666, L500.38222, L550.96251 ####[address] [place], [place] [address]Gl# [phone] Neutrophils 0.86 2.0-8.3 K/CU MM Low 11-24-2016 [facility] (77239) Comment: Order Comment: [place]: M Performed By: #### L500.0140 0, L500.45190, L500.39105, L500.91731, L550.55342 ####[address] [place], [place] [address]Gc# [phone] Neutrophils/100 WBC Auto (Bld) 19.0 45-75 % Low 11-24-2016 [facility] (00 000) Comment: Order Comment: [place]: M Performed By: #### L500.0140 0, L500.17813, L500.51136, L500.71623, L550.14763 ####[facility] CEOAZKBIVR5441 [place], [place] [address]Nh# [phone] PLT EST ADEQUATE Normal 11-24-2016 [facility] (15011) Comment: Order Comment: [place]: M Performed By: #### L500.0140 0, L500.43046, L500.81093, L500.83409, L550.30875 ####[facility] DVGAHRYBTY7549 [place], [place] [address]Rv# [phone] POLY 1+ Normal 11-24-2016 [facility] (73425) Comment: Order Comment: [place]: M Performed By: #### L500.0140 0, L500.50189, L500.86632, L500.94414, L550.09548 ####[facility] EKMBOEROMU6611 [place], [place] [address]Cd# [phone] Erythrocyte distribution 13.1 11-14.5 % Normal 11-24 [facility] width Auto Ratio (RBC) [place] (57680) Comment: Order Comment: [place]: M Performed By: #### L500.0140 0, L500.18292, L500.34378, L500.23196, L550.55252 ####[facility] FVGXWHXHCR3170 [place], [place] [address]Tc# [phone] Erythrocytes (RBC) 3.85 4.50-6.00 M/CU MM Low 11-24-2016 [facility] (58408) Comment: Order Comment: [place]: M Performed By: #### L500.0140 0, L500.76415, L500.07548, L500.04600, L550.65643 ####[facility] AAPAJUYTVX2186 [place], [place] [address]Yk# [phone] Erythrocytes (RBC) 0.0 Less than 1 % Normal [address] [place] [address] (27439) Comment: Order Comment: [place]: M Performed By: #### L500.0140 0, L500.89473, L500.17128, L500.82380, L550.74237 ####[facility] EYIATVQIXJ0976 [place], [place] [address]Fn# [phone] Hematocrit (HCT) 33.0 41.0-53.0 % Low 11-24-2016 [facility] (55998) Comment: Order Comment: [place]: M Performed By: #### L500.0140 0, L500.63495, L500.57534, L500.44759, L550.36737 ####[facility] UIUFRMXYQF0457 [place], [place] [address]Nl# [phone] Hemoglobin mass conc (Bld) 11.1 13.5-17.5 G/DL Low [facility] (00 000) Comment: Order Comment: [place]: M Performed By: #### L500.0140 0, L500.88830, L500.99104, L500.11740, L550.01443 ####[facility] ZFEODBRFPN4606 [place], [place] [address]Tc# [phone] MCHC mass conc (RBC) 33.6 32.0-36.0 GM/DL Normal 201 7 [facility] ( 000) Comment: Order Comment: [place]: M Performed By: #### L500.0140 0, L500.94138, L500.64681, L500.74194, L550.70387 ####[facility] DPVFHKHGMR8320 [place], [place] [address]Up# [phone] MCV 85.7 80.0-99.0 fl Normal 11-24-2016 [facility] (11424) Comment: Order Comment: [place]: M Performed By: #### L500.0140 0, L500.25506, L500.12400, L500.82294, L550.63741 ####[facility] VORUFTXBWV4609 [place], [place] [address]Ot# [phone] Platelet mean volume (PMV) 9.4 9.4-12.4 fL Normal [facility] ( 000) Comment: Order Comment: [place]: M Performed By: #### L500.0140 0, L500.82936, L500.95591, L500.70106, L550.51188 ####[facility] NJQSMUANCD3759 [place], [place] [address]Xm# [phone] Platelets 163 150-450 K/CU MM Normal 11-24-2016 [facility] (14589) Comment: Order Comment: [place]: M Performed By: #### L500.0140 0, L500.93082, L500.82066, L500.54005, L550.18055 ####[facility] MIDWFKXNFL4850 [place], [place] [address]Fu# [phone] WBC (Leukocytes) 4.5 4.5-11.0 K/CU MM Normal 11-24-2016 [facility] [place] (35977) Comment: Order Comment: [place]: M Performed By: #### L500.0140 0, L500.06743, L500.56979, L500.32229, L550.91806 ####[facility] LJDFZVDXTZ8530 [place], [place] [address]Um# [phone] wound culture on 13-11-27 WOUND CULTURE GRAM STAIN RARE WBC'S NO ORGANISMS N ormal 11-23-2016 [facility] SEENORGANISM 1: 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 11-23-11-23-2 017 [facility] (33459) gfr est on IF AMER Greater than 60 Normal 11-23-[address] [place] [address] (58561) Comment: Order Comment: [place]: M Performed By: #### L500.0140 0, L500.63987, L500.63788, L500.42815, L550.66245 ####[facility] EVZDRMQRJL9383 [place], [place] [address]Kq# [phone] IF non-AFR AMER Greater than 60 Normal 11-23-[address] [place] [address] (06583) Comment: Order Comment: [place]: M Performed By: #### L500.0140 0, L500.77389, L500.64751, L500.02076, L550.84747 ####[facility] IPLMHZRJRX9165 [place], [place] [address]Bl# [phone] cmp on 2016-11-22 Alanine aminotransferase (ALT) 37 13-61 IU/L Normal 11-22-2016 [facility] (00 000) Comment: Order Comment: [place]: M Performed By: #### L500.0140 0, L500.63221, L500.64485, L500.15956, L550.52637 ####[facility] DGZUAUDWUO7112 [place], [place] [address]Qa# [phone] Albumin 3.4 3.2-5.0 GM/DL Normal 11-22-2016 [facility] (68643) Comment: Order Comment: [place]: M Performed By: #### L500.0140 0, L500.67072, L500.05368, L500.16870, L550.08160 ####[facility] QQQLRRSPFB8947 [place], [place] [address]Fr# [phone] Albumin/Globulin Ratio 1.0 0.8-2.0 {ratio} Normal [address] [place] [address] (00 000) Comment: Order Comment: [place]: M Performed By: #### L500.0140 0, L500.11659, L500.13147, L500.06439, L550.05770 ####[facility] INENCMBKSI4099 [place], [place] [address]Pq# [phone] ALK PHOS 148 45-117 U/L High 11-22-2016 [facility] (17529) Comment: Order Comment: [place]: M Performed By: #### L500.0140 0, L500.20174, L500.28765, L500.14691, L550.09336 ####[facility] MDRYOMZZAA0212 [place], [place] [address]Xb# [phone] Anion gap 5 5-16 MMOL/L Normal 11-22-2016 [facility] (30895) Comment: Order Comment: [place]: M Performed By: #### L500.0140 0, L500.40342, L500.01501, L500.99026, L550.18758 ####[facility] VZREJGZTVV3691 [place], [place] [address]Cf# [phone] BILI TOTAL 0.4 0.2-1.0 MG/DL Normal 11-22-2016 [facility] (92229) Comment: Order Comment: [place]: M Performed By: #### L500.0140 0, L500.50890, L500.46928, L500.60914, L550.61051 ####[facility] PIHWRCCHLA8326 [place], [place] [address]Dr# [phone] BUN/Creatinine Ratio 19 15-24 mg/mg Normal 7 [facility] (29165) Comment: Order Comment: [place]: M Performed By: #### L500.0140 0, L500.69067, L500.26994, L500.61917, L550.81198 ####[facility] VBWUEPPLVR9919 [place], [place] [address]Yq# [phone] Calcium 9.1 8.5-10.1 MG/DL Normal 11-22-2016 [facility] (30471) Comment: Order Comment: [place]: M Performed By: #### L500.0140 0, L500.02372, L500.67551, L500.92343, L550.94448 ####[facility] KEOVATCSKN9506 [place], [place] [address]Ke# [phone] Chloride 101 98-107 MMOL/L Normal 11-22-2016 [facility] (69646) Comment: Order Comment: [place]: M Performed By: #### L500.0140 0, L500.94297, L500.25522, L500.35639, L550.47169 ####[facility] RNPRBTLRWO0495 [place], [place] [address]Do# [phone] CO2 31 21-32 MMOL/L Normal 11-22-2016 [facility] (28103) Comment: Order Comment: [place]: M Performed By: #### L500.0140 0, L500.06095, L500.29743, L500.57136, L550.26910 ####[facility] MQBDAIHGRE3742 [place], [place] [address]Xg# [phone] Creatinine 0.738 0.670-1.170 MG/DL Normal 11-22-2016 [facility] (15921) Comment: Order Comment: [place]: M Result Comment: Patients rec eiving either N-Acetylcysteine (NAC) orMetamizole prior to venipu ncture, may have falsely depressedresults. Performed By: #### L500.0140 0, L500.15226, L500.26321, L500.27956, L550.58555 ####[facility] PHEXWKTDJR9068 [place], [place] [address]Jv# [phone] Globulin 3.3 2.2-4.2 GM/DL Normal 11-22-2016 [facility] (69252) Comment: Order Comment: [place]: M Performed By: #### L500.0140 0, L500.19160, L500.07249, L500.57593, L550.36546 ####[facility] HTNXPJUMEE1037 [place], [place] [address]Ip# [phone] Glucose mass conc 97 70-100 MG/DL Normal 11-22-2016 [facility] (77754) Comment: Order Comment: [place]: M Result Comment: 07-861-Gvuxv l Fasting; 819-423-Fujvftgj Fasting; greaterthan 126 on more than one result- Diabetes. ADA guidelines Performed By: #### L500.0140 0, L500.15950, L500.39228, L500.78396, L550.52157 ####[facility] ICQQLOWICX0757 [place], [place] [address]Ax# [phone] Potassium molar conc 4.1 3.5-5.1 MMOL/L Normal 7 [facility] (93072) Comment: Order Comment: [place]: M Performed By: #### L500.0140 0, L500.12321, L500.45282, L500.95246, L550.44799 ####[facility] LPUACAEDCO4535 [place], [place] [address]Vq# [phone] Protein 6.7 6.0-8.5 GM/DL Normal 11-22-2016 [facility] (42319) Comment: Order Comment: [place]: M Performed By: #### L500.0140 0, L500.59257, L500.47172, L500.53212, L550.88483 ####[facility] DTEGRYXXNM1293 [place], [place] [address]Hx# [phone] SGOT (AST) 30 8-34 U/L Normal 11-22-2016 [facility] (87840) Comment: Order Comment: [place]: M Performed By: #### L500.0140 0, L500.50716, L500.35218, L500.24997, L550.75926 ####[facility] RUEBPKJFBL9713 [place], [place] [address]El# [phone] Sodium 136 136-145 MMOL/L Normal 11-22-2016 [facility] (02132) Comment: Order Comment: [place]: M Performed By: #### L500.0140 0, L500.73102, L500.16013, L500.15581, L550.90710 ####[address] [place], [place] [address]Ig# [phone] Urea nitrogen 14 7-26 MG/DL Normal 11-22-2016 [facility] (56048) Comment: Order Comment: [place]: M Performed By: #### L500.0140 0, L500.87939, L500.82259, L500.77548, L550.74740 ####[address] [address]Zo# [phone] cbc w/diff on 11-22 BASO ABS 0.10 0-0.2 K/CU MM Normal 11-22-2016 [facility] (92015) Comment: Order Comment: [place]: M Performed By: #### L500.0140 0, L500.93990, L500.41204, L500.09666, L550.26117 ####[address] [address]Lq# [phone] Basophils/100 WBC Auto (Bld) 1.5 0-2 % Normal 0 11-22-2016 [facility] (22447) Comment: Order Comment: [place]: M Performed By: #### L500.0140 0, L500.01056, L500.76455, L500.54740, L550.59390 ####[facility] BWSDEEXJEC7529 [place], [place] [address]Hm# [phone] EOS ABS 0.50 0-0.5 K/CU MM Normal 11-22-2016 [facility] (99871) Comment: Order Comment: [place]: M Performed By: #### L500.0140 0, L500.92415, L500.61918, L500.13003, L550.83058 ####[address] [address]Qz# [phone] Eosinophils/100 leukocytes 9.0 0-5 % High [facility] (71968) Comment: Order Comment: [place]: M Performed By: #### L500.0140 0, L500.54088, L500.45014, L500.20692, L550.97856 ####[facility] GUHIOHDTRN0088 [place], [place] [address]Ac# [phone] IMMATR GRAN ABS 0.00 Less than 2 K/CU MM Normal 11-22-2016 [facility] (00 000) Comment: Order Comment: [place]: M Performed By: #### L500.0140 0, L500.32651, L500.97289, L500.69667, L550.61261 ####[address] [address]Gd# [phone] IMMATURE GRAN % 0.8 Less than 2 % Normal 11-22-2016 [facility] (60881) Comment: Order Comment: [place]: M Performed By: #### L500.0140 0, L500.77476, L500.69698, L500.63403, L550.81698 ####[address] [address]Zf# [phone] Lymphocytes 2.40 0.9-4.4 K/CU MM Normal 11-22-2016 [facility] (97870) Comment: Order Comment: [place]: M Performed By: #### L500.0140 0, L500.02278, L500.95511, L500.40119, L550.58846 ####[address] [address]Js# [phone] Lymphocytes/100 leukocytes 46.3 20-40 % High [facility] ([address]65) Comment: Order Comment: [place]: M Performed By: #### L500.0140 0, L500.28251, L500.13283, L500.26053, L550.97563 ####[address] [address]La# [phone] MONO ABS 0.40 0.1-1.1 K/CU MM Normal 11-22-2016 [facility] (81302) Comment: Order Comment: [place]: M Performed By: #### L500.0140 0, L500.61844, L500.59386, L500.21406, L550.06790 ####[id number] [place], [place] [address]Dj# [phone] Monocytes/100 leukocytes 7.5 2-10 % Normal 11-22 [facility] (66601) Comment: Order Comment: [place]: M Performed By: #### L500.0140 0, L500.13087, L500.53932, L500.16136, L550.39011 ####[address] [address]Sh# [phone] [place] NORMOCYTIC Normal 11-22-2016 [facility] ([address]791) Comment: Order Comment: [place]: M Performed By: #### L500.0140 0, L500.46511, L500.88428, L500.84253, L550.51995 ####[facility] [place], [place] [address]Gq# [phone] Neutrophils 1.80 2.0-8.3 K/CU MM Low 11-22-2016 [facility] ([address]4775) Comment: Order Comment: [place]: M Performed By: #### L500.0140 0, L500.49343, L500.47832, L500.01791, L550.14542 ####[facility] [id number] [place], [place] [address]Ei# [phone] Neutrophils/100 WBC Auto (Bld) 34.9 45-75 % Low 11-22-2016 [facility] (00 000) Comment: Order Comment: [place]: M Performed By: #### L500.0140 0, L500.03894, L500.99686, L500.71767, L550.32795 ####[facility] [id number] [place], [place] [address]Og# [phone] PLT EST ADEQUATE Normal 11-22-2016 [facility] (85533) Comment: Order Comment: [place]: M Performed By: #### L500.0140 0, L500.63686, L500.10022, L500.53265, L550.61236 ####[facility] [id number] [place], [place] [address]If# [phone] POLY 1+ Normal 11-22-2016 [facility] (12146) Comment: Order Comment: [place]: M Performed By: #### L500.0140 0, L500.88540, L500.14153, L500.67047, L550.96725 ####[address] [address]Wj# [phone] Erythrocyte distribution 12.8 11-14.5 % Normal 11-22 [facility] width Auto Ratio (RBC) [place] ([address]) Comment: Order Comment: [place]: M Performed By: #### L500.0140 0, L500.14449, L500.36706, L500.02983, L550.80894 ####[facility] [id number] [place], [place] [address]Kh# [phone] Erythrocytes (RBC) 4.24 4.50-6.00 M/CU MM Low 11-22-2016 [facility] (74049) Comment: Order Comment: [place]: M Performed By: #### L500.0140 0, L500.03895, L500.04489, L500.78767, L550.71037 ####[facility] [id number] [place], [place] [address]Rz# [phone] Erythrocytes (RBC) 0.0 Less than 1 % Normal 7 [facility] [place] ([address]) Comment: Order Comment: [place]: M Performed By: #### L500.0140 0, L500.06123, L500.82505, L500.74639, L550.51445 ####[facility] [address]FN[address]IUT8878 [place], [place] [address]Se# [phone] Hematocrit (HCT) 35.9 41.0-53.0 % Low 11-22-2016 [facility] (21061) Comment: Order Comment: [place]: M Performed By: #### L500.0140 0, L500.95901, L500.06460, L500.01297, L550.42407 ####[facility] YSBMAUTDLP9367 [place], [place] [address]Tl# [phone] Hemoglobin mass conc (Bld) 12.2 13.5-17.5 G/DL Low [facility] (00 000) Comment: Order Comment: [place]: M Performed By: #### L500.0140 0, L500.98997, L500.62849, L500.86127, L550.66745 ####[facility] SSDRAWDWAK7006 [place], [place] [address]De# [phone] MCHC mass conc (RBC) 34.0 32.0-36.0 GM/DL Normal 7 [facility] (00 000) Comment: Order Comment: [place]: M Performed By: #### L500.0140 0, L500.28188, L500.45908, L500.53925, L550.22701 ####[facility] ZWEARYMYNS0005 [place], [place] [address]Fm# [phone] MCV 84.7 80.0-99.0 fl Normal 11-22-2016 [facility] (15918) Comment: Order Comment: [place]: M Performed By: #### L500.0140 0, L500.54398, L500.38178, L500.58878, L550.41717 ####[facility] ZFKJBUPSCD8580 [place], [place] [address]Gv# [phone] Platelet mean volume (PMV) 9.0 9.4-12.4 fL Low [facility] (12577) Comment: Order Comment: [place]: M Performed By: #### L500.0140 0, L500.70582, L500.80332, L500.24817, L550.14155 ####[facility] SUAUPUXUTB8924 [place], [place] [address]Em# [phone] Platelets 189 150-450 K/CU MM Normal 11-22-2016 [facility] (63738) Comment: Order Comment: [place]: M Performed By: #### L500.0140 0, L500.87885, L500.21313, L500.30622, L550.91258 ####[address] [address]Mm# [phone] WBC (Leukocytes) 5.2 4.5-11.0 K/CU MM Normal 11-22-2016 [facility] (89299) Comment: Order Comment: [place]: M Performed By: #### L500.0140 0, L500.51745, L500.59009, L500.93051, L550.73784 ####[address] [address]Yt# [phone] ur drug abuse on 12-11-24 UR AMPH NEGATIVE Epoojg=5482 Normal 11-20-2016 [facility] (76722) Comment: Order Comment: [place]: M Performed By: #### L500.0140 0, L500.76824, L500.15920, L500.18149, L550.09211 ####[facility] EPLPAFYVQY5814 [place], [place] [address]Ss# [phone] UR ANNA NEGATIVE Cvafzd=851 Normal 11-20-2016 [facility] (91126) Comment: Order Comment: [place]: M Performed By: #### L500.0140 0, L500.10023, L500.37324, L500.01308, L550.76753 ####[facility] ENAMO[address] [place] [address]Vx# [phone] UR JANIS NEGATIVE Xhmmnp=733 Normal 11-20-2016 [facility] (32257) Comment: Order Comment: [place]: M Performed By: #### L500.0140 0, L500.61271, L500.68138, L500.26449, L550.16367 ####[facility] PCAAANOXLR4863 [place], [place] [address]Et# [phone] UR MOY/THC NEGATIVE Cutoff=50 Normal 11-20-2016 [facility] (62318) Comment: Order Comment: [place]: M Performed By: #### L500.0140 0, L500.93120, L500.94202, L500.31939, L550.96452 ####[address] [place], [place] [address]Gf# [phone] UR AFSHIN NEGATIVE Tlbvuu=873 Normal 11-20-2016 [facility] (69123) Comment: Order Comment: [place]: M Performed By: #### L500.0140 0, L500.10628, L500.21316, L500.67689, L550.27936 ####[facility] TMYDUZPDHI9038 [place], [place] [address]Mh# [phone] UR OPIAT POSITIVE Qusfeo=602 Normal 11-20-2016 [facility] (19118) Comment: Order Comment: [place]: M Performed By: #### L500.0140 0, L500.28795, L500.53348, L500.80771, L550.11545 ####[facility] FZPQYFJORO0659 [place], [place] [address]Hd# [phone] UR PCP NEGATIVE Cutoff=25 Normal 11-20-2016 [facility] (45038) Comment: Order Comment: [place]: M Performed By: #### L500.0140 0, L500.44193, L500.87808, L500.51651, L550.89299 ####[facility] YBUAOJLZWY5073 [place], [place] [address]Jy# [phone] DRAB COMMENT Normal 11-20-2016 [facility] (52279) Comment: Order Comment: [place]: M Result Comment: Urine Drugs of Abuse results are qualitative, providing apreliminary analytical resu lt. A positive result for anassay should be confirmed by another nonimmu nological,reference method. A negative result indicates that theassay mate rial is either not present, or present at levelsbelow the cutoff thres hold for the analytical method range(AMR) validation. Performed By: #### L500.0140 0, L500.78346, L500.94666, L500.11824, L550.02008 ####[facility] VOBTWKLFAQ5277 [place], [place] [address]Ja# [phone] wsr/mod on WSR/MOD 16 0-15 MM/HR High 11-17-2016 [facility] (30770) Comment: Order Comment: [place]: M: \ Performed By: #### L200.0720 0 ####[facility] LGMCBOQWZJ0603 [place], [place] [address]Hm# zinc on 2016-11-16 ZINC 79 56-134 ug/dL Normal 11-16-2016 [facility] (02922) Comment: Order Comment: [place]: M Result Comment: Detection Li jesus alberto = 5Performed At: [facility] Hqlchscamd9114 [place], [place] [address]Dqjpeew Joaquín Hayden [id number] Performed By: #### L550.0740 0 ####[facility] UEOQHGS4815 [place] [address]Qo# prealb on 2016-10-27 9 PREALB 30 20-40 MG/DL Normal 11-14-2016 [facility] (78122) Comment: Order Comment: [place]: M Performed By: #### L500.0140 0, L500.22882, L500.52960, L500.04979, L550.47532 ####[facility] XQLYZVHXEQ5760 [place], [place] [address]Sg# [phone] phos on 2016-11-14 Phosphate 4.9 2.5-4.9 MG/DL Normal 11-14-2016 [facility] (97404) Comment: Order Comment: [place]: M Performed By: #### L500.0140 0, L500.90717, L500.69965, L500.57349, L550.24572 ####[facility] SWHNJSMTWE3300 [place], [place] [address]Ep# [phone] magnesium on 11-14 Magnesium 2.2 1.6-2.6 MG/DL Normal 11-14-2016 [facility] (38735) Comment: Order Comment: [place]: M Performed By: #### L500.0140 0, L500.95251, L500.85104, L500.28697, L550.52262 ####[facility] FLSWKXGKUP4252 [place], [place] [address]Nh# [phone] hp.ims.con on 11-14 CONSULTATION-H&P This is a preliminary report Norm al 11-14-2016 [facility] only, as the practitioner review [place] and authentication has not ([address]) occurred. HP.IMS.CON [facility] Patient Normal 11-14-2016 [facility] Name: LINDSAY DARLING [address] [facility] [address] Date of : ([address]) [address] [address] Unit Number: [id number] Number: [id number] Patient Status: REG RCRAttending Doctor: Jeane Gilman DOService Date: 11/14/16 1258History of Present IllnessConsulted ProviderFiSierra murry MDHistory of Present IllnessSara is a 26 yr old male, with a history of IVDU as well as chronic Hep C (untreated), who has been transferred here from [facility] due to osteomyelitis of the rightclavicle, [...] fevers.Finally, he went to the hospital in [place], where he was taken up to the [...] fracture) MRSA wound infection.He was admitted at [place] and is now s.p removal of hardware from the right clavicle, on11/07.He was treated with IV Vanc while at [place], and a wound vac has been placed.Today, [...] IF AMER Greater than 60 Normal 11-15-[address] [place] [address] ([address]) Comment: Order Comment: [place]: M Performed By: #### L500.0140 0, L500.86219, L500.59938, L500.60277, L550.21605 ####[facility] XWIGDMNLUU6295 [place], [place] [address]Jj# [phone] IF non-AFR AMER Greater than 60 Normal 11-15-[address] [place] [address] ([address]) Comment: Order Comment: [place]: M Performed By: #### L500.0140 0, L500.82594, L500.13278, L500.95495, L550.81638 ####[facility] DYORFOFJPZ1611 [place], [place] [address]Tn# [phone] cmp on 2016-11-14 Alanine aminotransferase (ALT) 33 13-61 IU/L Normal 11-14-2016 [facility] (00 000) Comment: Order Comment: [place]: M Performed By: #### L500.0140 0, L500.64474, L500.52438, L500.39796, L550.01398 ####[facility] UJZQOZVXRD9426 [place], [place] [address]Lk# [phone] Albumin 3.8 3.2-5.0 GM/DL Normal 11-14-2016 [facility] (80018) Comment: Order Comment: [place]: M Performed By: #### L500.0140 0, L500.85216, L500.63998, L500.47435, L550.98588 ####[facility] SYCNWAEAXJ4733 [place], [place] [address]Lq# [phone] Albumin/Globulin Ratio 1.0 0.8-2.0 {ratio} Normal 017 [facility] (00 000) Comment: Order Comment: [place]: M Performed By: #### L500.0140 0, L500.67303, L500.60247, L500.29237, L550.45827 ####[facility] HRIZLJWQQK9985 [place], [place] [address]Re# [phone] ALK PHOS 123 45-117 U/L High 11-14-2016 [facility] (58701) Comment: Order Comment: [place]: M Performed By: #### L500.0140 0, L500.90794, L500.02066, L500.54584, L550.21761 ####[facility]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 Payers Payer Name Policy Number Location [facility] [id number] [facility] ([id number]) [employer] [facility] ([id number]) [facility] [id number] [facility] ([id number]) The following information is from the original [...] BE BASED ON THE PRIMARY CLINICAL RECORDS. [facility] provides no warranty or guarantee of the accuracy or completeness of information in this document. UNRECOGNIZED CONTENT PROVIDED BELOW FOR UNRECOGNIZED SECTION No Status Records FoundNo Status Records FoundNo Status Records FoundNo Status Records FoundNo Status Records Found UNRECOGNIZED CONTENT PROVIDED BELOW FOR UNRECOGNIZED SECTION INFORMATION SOURCE DATE CREATED AUTHOR AUTHOR'S ORGANIZATIO N 10/23/2017 [facility] DATE CREATED AUTHOR AUTHOR'S ORGANIZATIO N 10/23/2017 [facility] DATE CREATED AUTHOR AUTHOR'S ORGANIZATIO N 11/16/2017 [facility] DATE CREATED AUTHOR AUTHOR'S ORGANIZATIO N 11/12/2018 [facility] DATE CREATED AUTHOR AUTHOR'S ORGANIZATIO N 12/29/2019 [facility] black
== END 2019-09-17 03:04 | disposition home or self-care (01) ==
PROVIDERS: Emergency Provider Emergency Medicine
DX: H10.9 Unspecified conjunctivitis (principal); Z86.19 Personal history of other infectious and parasitic diseases; F17.200 Nicotine dependence, unspecified, uncomplicated
CPT/HCPCS: 99283

== ENCOUNTER 2019-09-21 23:31 | Inpatient (IN) | payer SELFPAY ==
[2019-09-21 23:32] VITALS: BP 151/100; PULSE 84; RESP 18; TEMP 36.7; O2SAT 97; BMI 23.8
[2019-09-22] VITALS (7 sets, daily range): BP systolic 134–158; BP diastolic 92–111; PULSE 71–82; RESP 16–18; TEMP 36.6–37.1; O2SAT 97–100; BMI 23.6
[2019-09-22] MEDS: LORazepam 1 MG Tablet PO (01:12)
[2019-09-22] MEDS: cloNIDine HCl 0.1 MG Tablet PO ×3 (01:12→21:39)
[2019-09-22] MEDS: traMADol 50 MG Tablet 100 MG PO (01:12)
--- NOTE | 2019-09-22 01:14 | ED.VIS.GEN ---
History of Present Illness Chief Complaint: Eye Problem Informant: Patient Onset: Weeks - 1-2 Timing: Continuous Quality: Irritated, red Location: Left thigh, now also the right for several days Current Severity: Moderate Maximum Severity: Moderate Worsened by: Nothing in particular Relieved by: Nothing. Using antibiotics have x5 days. Associated Symptoms: Discharge from left eye at times Narrative: Patient presents for several reasons. He states that he had paint accidentally get into his left eye a couple weeks ago, he was seen here in the emergency department by myself, he eloped but apparently he was given the antibiotic prior to leaving, he states he has been using it a couple times a day for the last 5 days and his eye continues to get worse without improvement. Now his right eye is bothering him. He has vision difficulty in the left only when he has discharge otherwise vision unaffected. No headaches with it. He is concerned about his eyes. He has not seen anybody else or seen an eye doctor for this. Additionally, he states if possible he would like to be admitted to detox to help get off of opiates. He has been using IV heroin/opiates daily for over 6 months, and states that he is concerned that if he does not get off of the street and stop using drugs, he will not be able to take care of his eyes. His last use was between 12 and 24 hours ago, and he feels like he is in withdrawal. He is very restless, a little nausea, yawning a lot, shaky/anxious. He denies any suicidal ideation or any other psychiatric issues. Denies any other physical issues. - Past Medical History (1) Hepatitis C Status: Chronic (2) Polysubstance (including opioids) dependence, daily use Status: Chronic Past Medical History - Allergies and Home Meds Allergies/Adverse Reactions: Allergies latex Allergy (Verified 09/21/19 23:35) Hives Penicillins [PCN] Allergy (Verified 09/21/19 23:35) Anaphylaxis venom-honey bee [bee venom (honey bee)] Allergy (Verified 09/21/19 23:35) Swelling Primary Care Physician: Care Physician,No Primary [Primary Care Provider] - Surgical History: - - Cholecystectomy, R ORIF Clavicle, RUE ganglion cyst, Reconstruction LUE. Smoking Status: Current every day smoker Drugs: Heroin - Family History Maternal Family History: Reports: Diabetes, Heart Disease, Hypertension Paternal Family History: Reports: Diabetes, Heart Disease, Hypertension Sibling Family History: Reports: No pertinent history Review of Systems General: Reports: Malaise - Shaky and restless. Denies: Chills, Fever, Sweats Eyes: Reports: Blurred vision - left - When discharge present, - - Red, swollen, irritated, painful eyes bilaterally. Denies: Diplopia ENT: Denies: Rhinorrhea, Sore throat Cardiovascular: Denies: Chest pain, Palpitations Respiratory: Denies: Dyspnea, Cough, Dyspnea on exertion Gastrointestinal: Reports: Nausea. Denies: Abdominal pain, Vomiting, Diarrhea, Melena, Hematochezia Genitourinary: Denies: Dysuria, Hematuria, Frequency Musculoskeletal: Denies: Back pain, Extremity Pain Skin: Denies: Rash, Wounds Neurological: Denies: Headache, Weakness, Numbness Psych: Reports: Anxiety. Denies: Suicidal thoughts Physical Exam Vital Signs/Narrative: Vital Signs Temp Pulse Resp BP Pulse Ox 09/21/19 23:32 98.1 F 84 18 151/100 H 97 Inital Vital Signs reviewed: Yes General: Well nourished, Well developed, No Acute Distress - But very restless with increased psychomotor activity. Lies down, sits up, gets out of bed, lies back down, throughout the entire evaluation Head: Normocephalic, Atraumatic Eyes: Perrl, EOMI, - - There is swelling of both palpebral and bulbar conjunctivae, especially on the left. Less prominent on the right. Chemosis is present bilaterally as well as significant conjunctival injection. There is no purulent discharge present. There is no tenderness in the periorbital areas or the eyelids. The left eyelids are a little swollen, it appears to be related to palpebral conjunctival inflammation. No significant photophobia. ENT: Moist mucous membranes, No rhinorrhea Neck: Supple, Nontender, No lymphadenopathy Cardiovascular: Regular rate, Regular rhythm, No murmurs Respiratory: No distress, CTA bilaterally, Chest nontender Abdomen: Soft, Nontender, Nondistended, Normal bowel sounds Back: Nontender, Normal Inspection Extremities: Nontender, No edema Skin: Normal color, No rash, No Trauma - No sign of infected track ruiz Neurological: Alert, Oriented x3, Cranial nerves II-XII grossly intact, Normal Strength, Normal Sensation, Normal Gait Psychological: Agitated Diagnostic/Tx/Re-eval Laboratory Results 09/22/19 09/22/19 09/22/19 01:20 01:20 01:20 WBC 7.6 RBC 4.96 Hgb 14.5 Hct 44.8 MCV 90.3 MCH 29.2 MCHC 32.4 RDW Std Deviation 41.4 RDW Coeff of Vanessa 12.5 Plt Count 232 MPV 9.4 Immature Gran % (Auto) 0.800 Neut % (Auto) 47.2 Lymph % (Auto) 41.2 H Traverse % (Auto) 7.6 Eos % (Auto) 2.4 Baso % (Auto) 0.8 Absolute Neuts (auto) 3.6 Absolute Lymphs (auto) 3.14 Nucleated RBC % 0 Differential Comment SCANNED Atypical Lymphocytes 1+ Sodium 141 Potassium 4.0 Chloride 106 Carbon Dioxide 33.0 H Anion Gap 2 L BUN 17 Creatinine 0.74 Estim Creat Clear Calc 148.62 Est GFR (MDRD) Af Amer 162 Est GFR (MDRD) Non-Af 134 BUN/Creatinine Ratio 23.1 H Glucose 99 Calcium 9.1 Total Bilirubin 0.30 Direct Bilirubin 0.08 AST 36 ALT 43 Alkaline Phosphatase 140 H Total Protein 7.5 Albumin 3.6 Globulin 3.9 Urine Opiates Screen Urine Methadone Screen Ur Barbiturates Screen Ur Phencyclidine Scrn Ur Amphetamines Screen U Methamphetamin-MDMA U Benzodiazepines Scrn Urine Cocaine Screen U Cannabinoids Screen Ur Drug Screen Comment Ethyl Alcohol < 3.0 09/22/19 01:20 WBC RBC Hgb Hct MCV MCH MCHC RDW Std Deviation RDW Coeff of Vanessa Plt Count MPV Immature Gran % (Auto) Neut % (Auto) Lymph % (Auto) Traverse % (Auto) Eos % (Auto) Baso % (Auto) Absolute Neuts (auto) Absolute Lymphs (auto) Nucleated RBC % Differential Comment Atypical Lymphocytes Sodium Potassium Chloride Carbon Dioxide Anion Gap BUN Creatinine Estim Creat Clear Calc Est GFR (MDRD) Af Amer Est GFR (MDRD) Non-Af BUN/Creatinine Ratio Glucose Calcium Total Bilirubin Direct Bilirubin AST ALT Alkaline Phosphatase Total Protein Albumin Globulin Urine Opiates Screen NEGATIVE Urine Methadone Screen NEGATIVE Ur Barbiturates Screen NEGATIVE Ur Phencyclidine Scrn NEGATIVE Ur Amphetamines Screen POSITIVE H U Methamphetamin-MDMA NEGATIVE U Benzodiazepines Scrn NEGATIVE Urine Cocaine Screen NEGATIVE U Cannabinoids Screen POSITIVE H Ur Drug Screen Comment Ethyl Alcohol - Medical Decision Making Drug screen as above, given that his opiate screen is negative he has probably been using mostly fentanyl or derivatives. He was treated for his withdrawal symptoms with Ativan, clonidine, Ultram. This did help. Still waiting on visual acuities, but since we are admitting him for detox after discussion with the hospitalist, I will not necessarily wait on them for disposition. ED Disposition - Plan for ED Patient: Disposition: Acute Care Hospital [facility] Diagnosis: Opioid withdrawal syndrome, Polysubstance (including opioids) dependence, daily use, Conjunctivitis, acute, bilateral Referrals: Care Physician,No Primary [Primary Care Provider] -
[2019-09-22 01:28] LABS: Absolute Lymphocyte Count 3.14 X10^3/uL (0.83-4.51); Absolute Neutrophil Count 3.6 X10^3/uL (2.0-7.7); Basophil# 0.06 X10^3/uL; Basophil% 0.8 % (0-1); Eosinophil# 0.18 X10^3/uL; Eosinophils% 2.4 % (0-5); Hematocrit 44.8 % (40-54); Hemoglobin 14.5 g/dL (13.0-16.5); Lymphocyte # 3.14 X10^3/ul (4.0); Lymphocyte % 41.2 % (19-41); Mean Corp Hgb Conc 32.4 g/dL (32-36); Mean Corpuscular Hgb 29.2 pg (27.0-32.0); Mean Corpuscular Volume 90.3 fL (80-94); Mean Platelet Vol. 9.4 fl (6.2-12.0); Monocyte# 0.58 X10^3/uL; Monocyte% 7.6 % (0-10); NRBC Flagged by Analyzer 0 % (0-5); Neutrophil # 3.61 X10^3/uL (2.7-7.7); Neutrophil % 47.2 % (47-70); POSITIVE MORPHOLOGY YES; Platelet Count 232 K/mm3 (150-450); RBC Distribution Width CV 12.5 % (11.6-14.6); RBC Distribution Width SD 41.4 fl (35.1-43.9); Red Blood Count 4.96 M/mm3 (4.6-6.2); White Blood Count 7.6 K/mm3 (4.4-11.0)
[2019-09-22 01:30] LABS: Differential Indicated SCAN CRITERIA MET
[2019-09-22 01:40] LABS: Amphetamine Urine VISTA POSITIVE (<1000 ng/mL); Barbiturate Urine VISTA NEGATIVE (< 200 ng/mL); Benzodiazepine Urine VISTA NEGATIVE (< 200 ng/mL); Cocaine Urine VISTA NEGATIVE (< 300 ng/mL); Ecstacy Urine VISTA NEGATIVE (< 500 ng/mL); Methadone Urine VISTA NEGATIVE (< 300 ng/mL); PCP Urine VISTA NEGATIVE (< 25 ng/mL); THC Urine VISTA POSITIVE (< 50 ng/mL); Vista UDS pH Range 6
[2019-09-22 01:53] LABS: AST(SGOT) 36 U/L (15-37); Alanine Aminotransfer ALT/SGPT 43 U/L (16-61); Albumin, Serum 3.6 g/dL (3.2-5.0); Alkaline Phosphatase 140 U/L (45-117); Anion Gap 2 (5-15); BUN 17 mg/dL (7-18); BUN/Creat Ratio 23.1 RATIO (10-20); Bilirubin, Direct 0.08 mg/dL (0.00-0.30); Calcium,Total 9.1 mg/dL (8.5-10.1); Chloride 106 mmol/L (98-107); Creatinine, Serum 0.74 mg/dL (0.70-1.30); EST Glomerular Filtration Rate 134 mL/min (>60); Est Glom Filt Rate - Afr Amer 162 mL/min (>60); Estimated Creatinine Clearance 148.62 ml/min; Globulin 3.9 g/dL (2.2-4.2); Glucose 99 mg/dL (74-106); Protein, Total 7.5 g/dL (6.4-8.2); Sodium Level 141 mmol/L (136-145)
[2019-09-22 01:56] LABS: Alcohol, Blood (Medical)-Serum < 3.0 mg/dL
[2019-09-22 02:09] LABS: Atypical Lymphocyte 1+ %; Differential Comment SCANNED
[2019-09-22 02:23] LABS: Prothrombin Time (Protime)PT. 12.9 SECONDS (11.7-14.9)
--- NOTE | 2019-09-22 03:13 | HP.PCM_ITS ---
Problem List (1) Opioid withdrawal syndrome Status: Acute (2) Polysubstance (including opioids) dependence, daily use Status: Chronic (3) Conjunctivitis, acute, bilateral Status: Acute (4) Heroin abuse Status: Chronic (5) Tobacco use Status: Chronic (6) Methamphetamine abuse Status: Chronic (7) Hepatitis C Status: Chronic Qualifiers: Viral hepatitis chronicity: unspecified Hepatic coma status: without hepatic coma Qualified Code(s): B19.20 - Unspecified viral hepatitis C without hepatic coma History of Present Illness Date of Admission: 09/22/19 Chief Complaint: Eye problem, acute opiate withdrawal. The patient is a 28 year old M with past medical history as mentioned above presented to the emergency room because of eye problems. His main presenting complaint was redness and irritation of the left eye that started around 2 weeks ago and now, he is having same symptoms on the right. Patient mentioned that he was painting at home and after that, he started having redness of the left thigh with itching for several days. He came to the emergency department 4 days ago when he left the ED AGAINST MEDICAL ADVICE but he was prescribed with antibiotic ointment and he has been using for 5 days. He mentioned that using the antibiotic ointment, there was no improvement and now he has the same problem with his right eye. Reported intermittent blurry vision and photophobia. He denied fever chills. He denied trauma to the eyes or splash. When he was down in the emergency department, he did mention to the ED physician that he wanted to be admitted for acute opioid withdrawal for medical stabilization. He has been using IV heroin daily for almost 4 years. His last use was yesterday which is around 24 hours ago. He mentioned that he was admitted twice last year for detoxification but he left AGAINST MEDICAL ADVICE on both times. At this time, he complained of being very restless, anxious, not able to sleep as well as only nausea and watery eyes. He complains of back ache that has been going on for several hours now. He did admit that he has been using methamphetamines as well. In the emergency department, his vital signs were stable. His routine blood work was unremarkable. Urine drug screen was positive for amphetamines and cannabinoids. Blood alcohol level was less than 3. He is being admitted for acute opioid withdrawal for medical stabilization and acute bilateral conjunctivitis. Past Medical History Past Medical History (Chronic Problems): Chronic Problems Polysubstance (including opioids) dependence, daily use (Chronic) Heroin abuse (Chronic) Tobacco use (Chronic) Methamphetamine abuse (Chronic) Hepatitis C (Chronic) Allergies latex Allergy (Verified 09/21/19 23:35) Hives Penicillins [PCN] Allergy (Verified 09/21/19 23:35) Anaphylaxis venom-honey bee [bee venom (honey bee)] Allergy (Verified 09/21/19 23:35) Swelling Home Medications: Ambulatory Orders Medication Instructions Recorded NK 09/21/19 Surgical History: cholecystectomy, - - Cholecystectomy, R ORIF Clavicle, RUE ganglion cyst, Reconstruction LUE. Psychiatric History: No pertinent psych hx Smoking Status: Current every day smoker Tobacco Use: Cigarettes Drugs: Heroin, - - Amphetamines. - *Family History Maternal History Items: Diabetes, Heart Disease, Hypertension Paternal History Items: Diabetes, Heart Disease, Hypertension Sibling History Items: No pertinent history Review of Systems Constitutional: Reports: Malaise. Denies: Anorexia, Chills, Fever, Weakness Eyes: Reports: Blurred vision, Conjunctivae Inflammation, Drainage, Pain. Denies: Double vision HEENT: Denies: Difficulty Hearing, Ear Pain, Nasal bleeding, Nasal Congestion, Sore Throat Cardiovascular: Denies: Chest Pain, Chest Pressure, Chest Tightness, Edema, Heaviness, Palpitations, Syncope Respiratory: Denies: Cough, Pleuritic Pain, Shortness of Breath, Sputum production, Wheezing Gastrointestinal: Denies: Abdominal Pain, Constipation, Diarrhea, Nausea, Vomiting Genitourinary: Denies: Dysuria, Frequency, Hematuria Musculoskeletal: Reports: Back Pain. Denies: Arm Pain, Foot Pain Skin: Denies: Dryness, Rash Neurological: Denies: Balance problems, Change in Speech, Slurred speech, Confusion, Focal weakness, Headaches, Incoordination, Numbness Psychiatric: Denies: Anxiety, Depression Endocrine: Denies: Change in Body Habitus, Polydipsia, Polyuria VTE Information - Inpt Only VTE Present on Admission: No VTE Mechan Device Prophylaxis: None VTE Pharm Prophylaxis ordered?: No Patient Problems: Active and Suspected Problems Conjunctivitis, acute, bilateral (Acute) - Physical Exam Vitals/I&O's: Vital Signs Temp Pulse Resp BP Pulse Ox 98.1 F 82 18 141/111 H 99 09/21/19 23:32 09/22/19 02:48 09/22/19 02:48 09/22/19 02:48 09/22/19 02:48 Oxygen Delivery Method Room Air Weight: 161 lb 9.581 oz Body Mass Index (BMI) 23.8 General: Alert, Oriented x3, Cooperative, - - Restless, anxious. HEENT: Atraumatic, PERRLA, Normocephalic, - - Significant conjunctival injection bilaterally, erythematous eyelid, mild edema. Oral: Moist Mucosa, No Gingival or Mucosal Lesions/ Ulcerations Neck: Supple, No JVD, Negative Carotid Bruits, Trachea Midline, Thyroid Normal Size and Texture Lungs: Clear to auscultation, Normal air movement, No rhonchi, No wheeze, No rales Cardiovascular: Regular rate, Regular Rhythm, Normal S1, Normal S2, PMI Normal Abdomen: Bowel Sounds Present, Soft, Non Tender, Non-Distended, No Hepato- splenomegaly Extremities: No clubbing, No cyanosis, No edema Skin: No rashes, No breakdown Lymphatic: No Cervical, Supraclavicular, or Inguinal Adenopathy Neurological: Cranial nerves II-XII grossly intact, Motor Exam 5/5 strength throughout Psych/Mental Status: Anxious, Restless, Alert and oriented to time, place, person, mood and affect Laboratory Results 09/22/19 01:20: WBC 7.6, RBC 4.96, Hgb 14.5, Hct 44.8, MCV 90.3, MCH 29.2, MCHC 32.4, RDW Std Deviation 41.4, RDW Coeff of Vanessa 12.5, Plt Count 232, MPV 9.4, Immature Gran % (Auto) 0.800, Neut % (Auto) 47.2, Lymph % (Auto) 41.2 H, Haywood % (Auto) 7.6, Eos % (Auto) 2.4, Baso % (Auto) 0.8, Absolute Neuts (auto) 3.6, Absolute Lymphs (auto) 3.14, Nucleated RBC % 0, Differential Comment SCANNED, Atypical Lymphocytes 1+ 09/22/19 01:20: Sodium 141, Potassium 4.0, Chloride 106, Carbon Dioxide 33.0 H, Anion Gap 2 L, BUN 17, Creatinine 0.74, Estim Creat Clear Calc 148.62, Est GFR (MDRD) Af Amer 162, Est GFR (MDRD) Non-Af 134, BUN/Creatinine Ratio 23.1 H, Glucose 99, Calcium 9.1, Total Bilirubin 0.30, Direct Bilirubin 0.08, AST 36, ALT 43, Alkaline Phosphatase 140 H, Total Protein 7.5, Albumin 3.6, Globulin 3.9 09/22/19 01:20: Ethyl Alcohol < 3.0 09/22/19 01:20: Urine Opiates Screen NEGATIVE, Urine Methadone Screen NEGATIVE, Ur Barbiturates Screen NEGATIVE, Ur Phencyclidine Scrn NEGATIVE, Ur Amphetamines Screen POSITIVE H, U Methamphetamin-MDMA NEGATIVE, U Benzodiazepines Scrn NEGATIVE, Urine Cocaine Screen NEGATIVE, U Cannabinoids Screen POSITIVE H, Ur Drug Screen Comment 09/22/19 02:05: PT 12.9, INR 1.0 Assessment/Plan All Active Problems Opioid withdrawal syndrome (Acute) Conjunctivitis, acute, bilateral (Acute) Is a 28 years old male patient presented to the emergency room because of eye symptoms, found to have acute bilateral conjunctivitis and he requested to be admitted for acute opioid withdrawal for medical stabilization. #1 acute opioid withdrawal: Patient has been using IV heroin daily, last use was 24 hours ago. He was admitted for medical stabilization twice in the past last year but he relapsed. Vital signs are stable. Routine blood work and urine drug screen reviewed as above. Plan: Admit to MedSurg floor, start medical stabilization protocol with tapering course of Subutex, PRN Catapres, Bentyl, Neurontin, Vistaril, ibuprofen, methocarbamol, Zofran, Tylenol. #2 acute bilateral conjunctivitis: Could be chemical conjunctivitis which may be complicated by secondary acute infection. Patient was on antibiotic ointment for 5 days. Plan: Start ciprofloxacin eyedrops, prednisolone eyedrops, recommend follow-up with ophthalmology as outpatient. #3 polysubstance abuse: Patient has been using IV heroin and amphetamines. Urine drug screen is positive for amphetamines and cannabinoids and strangely, it was negative for opioids. #4 chronic hepatitis C: Unknown if this was treated or not. LFT was unremarkable. #5 tobacco abuse: NicoDerm patch. #6 DVT prophylaxis: Low risk patient, no prophylaxis indicated. This note was generated with [employer] Fusion[employer] software. It may contain incorrect words, spelling, and punctuation that were not noted in checking the note before signing. Inpatient E&M: 17767 Init Hosp L2
[2019-09-22] MEDS: Ibuprofen 600 MG Tablet PO ×2 (04:23→17:12)
[2019-09-22] MEDS: Methocarbamol 750 MG Tablet 1500 MG PO ×2 (04:23→21:38)
[2019-09-22] MEDS: Gabapentin 300 MG Capsule PO ×2 (04:23→17:12)
[2019-09-22] MEDS: Ciprofloxacin 0.3% 2.5ml Bottle 2 DRP EACH EYE ×5 (04:30→21:39)
[2019-09-22] MEDS: prednisoLONE eye drops (1 mL) 1 DROP OPTH.BTL 1 DRP EACH EYE ×3 (04:31→21:39)
[2019-09-22] MEDS: Buprenorphine HCl 2 MG TAB.SUBL SL ×3 (04:33→21:32)
--- NOTE | 2019-09-22 09:46 | CASEMGMT ---
Social Work Note Pt is RAMP pt. SW placed a call to Christine at [facility] and left message stating pt will need to be seen. Pt is also listed as being self-pay. SW reviewed PFS notes. Per PFS notes, pt is ineligible for Medicaid, pt declined ER SP Deposit, and Declined HCAP form. [facility] 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
--- NOTE | 2019-09-22 12:28 | NURSING ---
called neil lyn with update
--- NOTE | 2019-09-22 12:50 | PN_ITS ---
Patient Problems: Active and Suspected Problems Conjunctivitis, acute, bilateral (Acute) Subjective: Patient seen and examined. Sitting up in bed eating breakfast. Denies current significant withdrawal symptoms. - Physical Exam Vitals/I&O's: Vital Signs Temp Pulse Resp BP Pulse Ox 98.1 F 76 16 150/97 H 100 09/22/19 12:24 09/22/19 12:24 09/22/19 12:24 09/22/19 12:24 09/22/19 12:24 Oxygen Delivery Method Room Air Weight: 159 lb 13.362 oz Body Mass Index (BMI) 23.6 Intake and Output for Last 24 Hours 09/20/19 09/21/19 09/22/19 23:59 23:59 23:59 Intake Total 400 / 400 Balance 400 / 400 General: Alert, Oriented x3, Cooperative HEENT: Atraumatic, PERRLA, EOMI, Normocephalic Neck: Supple, No JVD, Negative Carotid Bruits Lungs: Clear to auscultation, Normal air movement Cardiovascular: Regular rate, Regular Rhythm, Normal S1, Normal S2, No murmurs Abdomen: Bowel Sounds Present, Soft, Non Tender, Non-Distended Extremities: No clubbing, No cyanosis, No edema, Capillary Refill Less than 3 Seconds Skin: No rashes, No breakdown Musculoskeletal: No Tenderness to Palpation of Joints or Extremities Neurological: Cranial nerves II-XII grossly intact, Neuro grossly intact Psych/Mental Status: Normal Affect, Appropriate Laboratory Results 09/22/19 01:20: WBC 7.6, RBC 4.96, Hgb 14.5, Hct 44.8, MCV 90.3, MCH 29.2, MCHC 32.4, RDW Std Deviation 41.4, RDW Coeff of Vanessa 12.5, Plt Count 232, MPV 9.4, Immature Gran % (Auto) 0.800, Neut % (Auto) 47.2, Lymph % (Auto) 41.2 H, Trinity % (Auto) 7.6, Eos % (Auto) 2.4, Baso % (Auto) 0.8, Absolute Neuts (auto) 3.6, Absolute Lymphs (auto) 3.14, Nucleated RBC % 0, Differential Comment SCANNED, Atypical Lymphocytes 1+ 09/22/19 01:20: Sodium 141, Potassium 4.0, Chloride 106, Carbon Dioxide 33.0 H, Anion Gap 2 L, BUN 17, Creatinine 0.74, Estim Creat Clear Calc 148.62, Est GFR (MDRD) Af Amer 162, Est GFR (MDRD) Non-Af 134, BUN/Creatinine Ratio 23.1 H, Glucose 99, Calcium 9.1, Total Bilirubin 0.30, Direct Bilirubin 0.08, AST 36, ALT 43, Alkaline Phosphatase 140 H, Total Protein 7.5, Albumin 3.6, Globulin 3.9 09/22/19 01:20: Ethyl Alcohol < 3.0 09/22/19 01:20: Urine Opiates Screen NEGATIVE, Urine Methadone Screen NEGATIVE, Ur Barbiturates Screen NEGATIVE, Ur Phencyclidine Scrn NEGATIVE, Ur Amphetamines Screen POSITIVE H, U Methamphetamin-MDMA NEGATIVE, U Benzodiazepines Scrn NEGATIVE, Urine Cocaine Screen NEGATIVE, U Cannabinoids Screen POSITIVE H, Ur Drug Screen Comment 09/22/19 02:05: PT 12.9, INR 1.0 Current Medications Acetaminophen (Tylenol) 500 mg PO Q4H PRN PRN PRN Reason: Temp > 100.4 F Buprenorphine HCl (Buprenorphine Hcl) 4 mg SL Q8H LARA; Taper Stop: 09/25/19 04:29 Last Admin: 09/22/19 12:20 Dose: 4 mg Documented by: Ciprofloxacin HCl (Ciloxan) 2 drop EACH EYE Q4 LARA Last Admin: 09/22/19 10:55 Dose: 2 drop Documented by: Clonidine (Catapres) 0.1 mg PO Q8H PRN PRN PRN Reason: RESTLESSNESS Last Admin: 09/22/19 04:24 Dose: 0.1 mg Documented by: Dicyclomine HCl (Bentyl) 20 mg PO Q6H PRN PRN PRN Reason: Abdominal Discomfort Gabapentin (Neurontin) 300 mg PO Q8H PRN PRN PRN Reason: moderate to severe anxiety Last Admin: 09/22/19 04:23 Dose: 300 mg Documented by: Hydroxyzine Pamoate (Vistaril Pamoate Capsule) 50 mg PO Q6H PRN PRN PRN Reason: mild anxiety Ibuprofen (Motrin) 600 mg PO Q8H PRN PRN PRN Reason: Pain Score 1-10/10 Last Admin: 09/22/19 04:23 Dose: 600 mg Documented by: Loperamide HCl (Imodium) 2 mg PO Q4H PRN PRN PRN Reason: LOOSE STOOLS Methocarbamol (Methocarbamol) 1,500 mg PO Q6H PRN PRN PRN Reason: MUSCLE SPASM Last Admin: 09/22/19 04:23 Dose: 1,500 mg Documented by: Nicotine (Nicoderm Cq (Pbkc)) 21 mg TRANSDERM. DAILY [facility] Last Admin: 09/22/19 10:13 Dose: Not Given Documented by: Ondansetron HCl (Zofran Odt) 8 mg PO Q8H PRN PRN PRN Reason: NAUSEA Prednisolone Acetate (Pred Forte Eye Drops (1 Ml)) 1 drop EACH EYE TID [facility] Last Admin: 09/22/19 04:31 Dose: 1 drop Documented by: Sodium Chloride () 10 - 40 ml IV UD PRN PRN Reason: SALINE FLUSH Trazodone HCl (Desyrel) 100 mg PO QHS PRN PRN PRN Reason: INSOMNIA Medical Necessity - Tobacco Use Smoking Status: Current every day smoker Tobacco Use: Cigarettes Assessment/Plan All Active Problems Opioid withdrawal syndrome (Acute) Conjunctivitis, acute, bilateral (Acute) 1. Acute opioid withdrawal-medical stabilization per protocol. Subutex taper. PRN regimen for somatic complaints. [employer] consult. 2. Acute bilateral conjunctivitis-stable, continue ophthalmic Cipro and prednisone eyedrops. Outpatient follow-up with ophthalmology. 3. Polysubstance abuse-Tox screen positive for amphetamines, cannabinoids. Negative for opiates? 4. Chronic hepatitis C-outpatient follow-up. 5. Tobacco dependence-encouraged cessation. Nicotine replacement patch. DVT prophylaxis-not indicated, low risk This patient was seen by KAHLIL Reese under the supervision of Dr. Ochoa.
[2019-09-22] MEDS: 0.9% Saline Lock 10 ML Syringe IV (21:38)
[2019-09-22] MEDS: hydrOXYzine PAM 25 MG Capsule 50 MG PO (21:38)
[2019-09-22] MEDS: traZODone 100 MG Tablet PO (21:38)
[2019-09-23] MEDS: Ciprofloxacin 0.3% 2.5ml Bottle 2 DRP EACH EYE ×6 (02:09→20:30)
[2019-09-23 02:10] VITALS: BP 144/91; PULSE 65; RESP 16; TEMP 36.4; O2SAT 97
[2019-09-23] MEDS: 0.9% Saline Lock 10 ML Syringe IV (04:52)
[2019-09-23] MEDS: Gabapentin 300 MG Capsule PO (04:52)
[2019-09-23] MEDS: Buprenorphine HCl 2 MG TAB.SUBL SL ×3 (04:52→20:29)
[2019-09-23] MEDS: prednisoLONE eye drops (1 mL) 1 DROP OPTH.BTL 1 DRP EACH EYE ×3 (04:56→20:30)
[2019-09-23 09:02] VITALS: BP 153/86; PULSE 83; RESP 16; TEMP 36.9; O2SAT 97
[2019-09-23 09:06] VITALS: PULSE 90
--- NOTE | 2019-09-23 10:05 | PCM.PROGNOTE ---
<Samantha Pollock - Last Filed: 09/23/19 10:07> Patient Problems: Active and Suspected Problems Conjunctivitis, acute, bilateral (Acute) Subjective: Patient seen and examined. Flat affect. Patient has been unpleasant with the nursing staff this morning. When asking patient about withdrawal symptoms he became upset stating he was just asked these questions 5 minutes ago. He denies any symptoms at this time. - Physical Exam Vitals/I&O's: Vital Signs Temp Pulse Resp BP Pulse Ox 98.5 F 90 16 153/86 H 97 09/23/19 09:02 09/23/19 09:06 09/23/19 09:02 09/23/19 09:02 09/23/19 09:02 Oxygen Delivery Method Room Air Weight: 159 lb 13.362 oz Body Mass Index (BMI) 23.6 Intake and Output for Last 24 Hours 09/21/19 09/22/19 09/23/19 23:59 23:59 23:59 Intake Total 1050 / 1650 1000 / 1000 Balance 1050 / 1650 1000 / 1000 General: Alert, Oriented x3, Cooperative HEENT: Atraumatic, PERRLA, EOMI, Normocephalic Neck: Supple, No JVD, Negative Carotid Bruits Lungs: Clear to auscultation, Normal air movement Cardiovascular: Regular rate, No murmurs Abdomen: Bowel Sounds Present, Soft, Non Tender Extremities: No edema, Capillary Refill Less than 3 Seconds Skin: No rashes, No breakdown Musculoskeletal: No Tenderness to Palpation of Joints or Extremities Neurological: Cranial nerves II-XII grossly intact, Neuro grossly intact Psych/Mental Status: Flat Affect Current Medications Acetaminophen (Tylenol) 500 mg PO Q4H PRN PRN PRN Reason: Temp > 100.4 F Buprenorphine HCl (Buprenorphine Hcl) 2 mg SL Q8H LARA; Taper Stop: 09/25/19 04:29 Last Admin: 09/23/19 04:52 Dose: 2 mg Documented by: Ciprofloxacin HCl (Ciloxan) 2 drop EACH EYE Q4 LARA Last Admin: 09/23/19 09:11 Dose: 2 drop Documented by: Clonidine (Catapres) 0.1 mg PO Q8H PRN PRN PRN Reason: RESTLESSNESS Last Admin: 09/22/19 21:39 Dose: 0.1 mg Documented by: Dicyclomine HCl (Bentyl) 20 mg PO Q6H PRN PRN PRN Reason: Abdominal Discomfort Gabapentin (Neurontin) 300 mg PO Q8H PRN PRN PRN Reason: moderate to severe anxiety Last Admin: 09/23/19 04:52 Dose: 300 mg Documented by: Hydroxyzine Pamoate (Vistaril Pamoate Capsule) 50 mg PO Q6H PRN PRN PRN Reason: mild anxiety Last Admin: 09/22/19 21:38 Dose: 50 mg Documented by: Ibuprofen (Motrin) 600 mg PO Q8H PRN PRN PRN Reason: Pain Score 1-10/10 Last Admin: 09/22/19 17:12 Dose: 600 mg Documented by: Loperamide HCl (Imodium) 2 mg PO Q4H PRN PRN PRN Reason: LOOSE STOOLS Methocarbamol (Methocarbamol) 1,500 mg PO Q6H PRN PRN PRN Reason: MUSCLE SPASM Last Admin: 09/22/19 21:38 Dose: 1,500 mg Documented by: Nicotine (Nicoderm Cq (Pbkc)) 21 mg TRANSDERM. DAILY [facility] Last Admin: 09/22/19 17:09 Dose: 21 mg Documented by: Ondansetron HCl (Zofran Odt) 8 mg PO Q8H PRN PRN PRN Reason: NAUSEA Prednisolone Acetate (Pred Forte Eye Drops (1 Ml)) 1 drop EACH EYE TID [facility] Last Admin: 09/23/19 04:56 Dose: 1 drop Documented by: Sodium Chloride () 10 - 40 ml IV UD PRN PRN Reason: SALINE FLUSH Last Admin: 09/23/19 04:52 Dose: 10 ml Documented by: Trazodone HCl (Desyrel) 100 mg PO QHS PRN PRN PRN Reason: INSOMNIA Last Admin: 09/22/19 21:38 Dose: 100 mg Documented by: Medical Necessity - Tobacco Use Smoking Status: Current every day smoker Tobacco Use: Cigarettes Assessment/Plan All Active Problems Opioid withdrawal syndrome (Acute) Conjunctivitis, acute, bilateral (Acute) 1. Acute opioid withdrawal-medical stabilization per protocol. Subutex taper. PRN regimen for somatic complaints. [employer] consult. 2. Acute bilateral conjunctivitis-stable, continue ophthalmic Cipro and prednisone eyedrops. Outpatient follow-up with ophthalmology. 3. Polysubstance abuse-Tox screen positive for amphetamines, cannabinoids. Negative for opiates? 4. Chronic hepatitis C-outpatient follow-up. 5. Tobacco dependence-encouraged cessation. Nicotine replacement patch. DVT prophylaxis-not indicated, low risk This patient was seen by KAHLIL Reese under the supervision of Dr. Ochoa. <Jerrod Ochoa F - Last Filed: 09/23/19 12:41> - Physical Exam Vitals/I&O's: Vital Signs Temp Pulse Resp BP Pulse Ox 98.5 F 90 16 153/86 H 97 09/23/19 09:02 09/23/19 09:06 09/23/19 09:02 09/23/19 09:02 09/23/19 09:02 Oxygen Delivery Method Room Air Weight: 159 lb 13.362 oz Body Mass Index (BMI) 23.6 Intake and Output for Last 24 Hours 09/21/19 09/22/19 09/23/19 23:59 23:59 23:59 Intake Total 1050 / 1650 1000 / 1000 Balance 1050 / 1650 1000 / 1000 Current Medications Acetaminophen (Tylenol) 500 mg PO Q4H PRN PRN PRN Reason: Temp > 100.4 F Buprenorphine HCl (Buprenorphine Hcl) 2 mg SL Q8H LARA; Taper Stop: 09/25/19 04:29 Last Admin: 09/23/19 12:33 Dose: 2 mg Documented by: Ciprofloxacin HCl (Ciloxan) 2 drop EACH EYE Q4 LARA Last Admin: 09/23/19 09:11 Dose: 2 drop Documented by: Clonidine (Catapres) 0.1 mg PO Q8H PRN PRN PRN Reason: RESTLESSNESS Last Admin: 09/22/19 21:39 Dose: 0.1 mg Documented by: Dicyclomine HCl (Bentyl) 20 mg PO Q6H PRN PRN PRN Reason: Abdominal Discomfort Gabapentin (Neurontin) 300 mg PO Q8H PRN PRN PRN Reason: moderate to severe anxiety Last Admin: 09/23/19 04:52 Dose: 300 mg Documented by: Hydroxyzine Pamoate (Vistaril Pamoate Capsule) 50 mg PO Q6H PRN PRN PRN Reason: mild anxiety Last Admin: 09/22/19 21:38 Dose: 50 mg Documented by: Ibuprofen (Motrin) 600 mg PO Q8H PRN PRN PRN Reason: Pain Score 1-10/10 Last Admin: 09/22/19 17:12 Dose: 600 mg Documented by: Loperamide HCl (Imodium) 2 mg PO Q4H PRN PRN PRN Reason: LOOSE STOOLS Methocarbamol (Methocarbamol) 1,500 mg PO Q6H PRN PRN PRN Reason: MUSCLE SPASM Last Admin: 09/22/19 21:38 Dose: 1,500 mg Documented by: Nicotine (Nicoderm Cq (Pbkc)) 21 mg TRANSDERM. DAILY [facility] Last Admin: 09/23/19 12:33 Dose: Not Given Documented by: Ondansetron HCl (Zofran Odt) 8 mg PO Q8H PRN PRN PRN Reason: NAUSEA Prednisolone Acetate (Pred Forte Eye Drops (1 Ml)) 1 drop EACH EYE TID [facility] Last Admin: 09/23/19 04:56 Dose: 1 drop Documented by: Sodium Chloride () 10 - 40 ml IV UD PRN PRN Reason: SALINE FLUSH Last Admin: 09/23/19 04:52 Dose: 10 ml Documented by: Trazodone HCl (Desyrel) 100 mg PO QHS PRN PRN PRN Reason: INSOMNIA Last Admin: 09/22/19 21:38 Dose: 100 mg Documented by: Addendum: Dr. Ochoa I personally examined the patient and reviewed the chart. I agree with the above. 28-year-old male presents to the ER for left conjunctivitis that had begun about 2 weeks ago. He then started developing symptoms on the right eye. He initially did come to the ER 4 days prior to this current admission and left the ER AGAINST MEDICAL ADVICE. He was given eyedrops which she says he has been using. However he comes in because he has been using IV heroin daily for about 4 years and his last use was 24 hours prior to admission, and he would like detox for his opiate use. We will continue with the opiate withdrawal protocol, and recommend outpatient follow-up for his chronic hepatitis C. Will need to follow-up with 180 as an outpatient. Inpatient E&M: 64820 Subs Hosp L2
[2019-09-23 14:01] VITALS: BP 143/90; PULSE 89; RESP 18; TEMP 36.8; O2SAT 97
--- NOTE | 2019-09-23 14:37 | CASEMGMT ---
Social Work Note SW attempted to meet with pt to provide financial resources as pt is listed as self-pay, but pt soundly sleeping, didn't answer when this worker entered room. Per previous notes, PFS states pt ineligible for Medicaid, pt declined ER SP Deposit, and Declined HCAP form as pt was given these forms when pt was in the ED. Fang Valle CUT OFF MAN, CHILD LIFE ASSISTANT
--- NOTE | 2019-09-23 16:16 | ADDICTION ---
This social insurance adviser attempted to meet with patient on 09/22/2019 and 09/23/2019. Patient refused stating that this song writer has bad timing. I'm tired. This song writer will attempt to meet with patient at next visit.
[2019-09-23 17:43] VITALS: BP 149/90; PULSE 77; RESP 18; TEMP 36.8; O2SAT 97
[2019-09-23 20:33] VITALS: BP 150/96; PULSE 83; RESP 18; TEMP 36.9; O2SAT 96
[2019-09-23] MEDS: traZODone 100 MG Tablet PO (22:03)
[2019-09-23] MEDS: cloNIDine HCl 0.1 MG Tablet PO (22:03)
[2019-09-23] MEDS: Methocarbamol 750 MG Tablet 1500 MG PO (22:03)
[2019-09-24 02:29] VITALS: BP 143/91; PULSE 93; RESP 16; TEMP 36.8; O2SAT 97
[2019-09-24] MEDS: Ciprofloxacin 0.3% 2.5ml Bottle 2 DRP EACH EYE ×4 (02:33→13:47)
[2019-09-24] MEDS: Buprenorphine HCl 2 MG TAB.SUBL SL ×2 (04:54→16:19)
[2019-09-24] MEDS: prednisoLONE eye drops (1 mL) 1 DROP OPTH.BTL 1 DRP EACH EYE ×2 (04:56→13:47)
--- NOTE | 2019-09-24 09:59 | CASEMGMT ---
Social Work Note SW in to speak with pt regarding self-pay. Pt sleeping but did wake up when SW entered the room. SW introduced self and role at [facility]. Pt states I was sleeping and then proceeded to pull cover over his face when this worker began talking to him. SW provided pt with financial resources including HCAP, Medicaid Application, [employer], Susan Sousa, [employer], [employer]cription [employer] and Prescription assistance resources. Pt denied additional needs or concerns. [employer] to meet with pt again today. Fang Valle DRIER TENDER, DIESEL ENGINE ASSEMBLER
[2019-09-24 11:15] VITALS: BP 145/95; PULSE 68; RESP 16; TEMP 36.4; O2SAT 99
--- NOTE | 2019-09-24 12:12 | ADDICTION ---
This real estate underwriter attempted to meet with patient in his room to conduct ASAM assessment, discharge planning and to provide support. Upon this real estate underwriter's arrival, client stated I'd rather not do this and declined to complete assessment and discharge planning. He was not cooperative and this real estate underwriter was unable to evaluate ASAM during this patient's stay. This real estate underwriter informed his nurse, Cherri, of this visit as unit hospital social worker was not available.
--- NOTE | 2019-09-24 13:44 | PCM.PN.HOSP ---
Patient Problems: Active and Suspected Problems Conjunctivitis, acute, bilateral (Acute) Reason for Visit: opiate withdrawal Subjective: no complaints. pt denies active withdrawal symptoms. States he is tired and sleeping a lot. No n/v/d. no sob/cough/fever. No VERONICA. No anxiety/restlessness. No muscle cramps or musculoskeletal pain. Vitals/I&O's: Vital Signs Temp Pulse Resp BP Pulse Ox 97.6 F L 68 16 145/95 H 99 09/24/19 11:15 09/24/19 11:15 09/24/19 11:15 09/24/19 11:15 09/24/19 11:15 Oxygen Delivery Method Room Air Weight: 159 lb 13.362 oz Body Mass Index (BMI) 23.6 Intake and Output for Last 24 Hours 09/22/19 09/23/19 09/24/19 23:59 23:59 23:59 Intake Total 1050 / 1650 1000 / 1000 750 / 750 Balance 1050 / 1650 1000 / 1000 750 / 750 General: Alert, Oriented x3, Cooperative HEENT: Atraumatic, PERRLA, EOMI, Normocephalic Neck: Supple, No JVD, Negative Carotid Bruits Lungs: Clear to auscultation, Normal air movement Cardiovascular: Regular rate, No murmurs Abdomen: Bowel Sounds Present, Soft, Non Tender Extremities: No edema, Capillary Refill Less than 3 Seconds Skin: No rashes, No breakdown Musculoskeletal: No Tenderness to Palpation of Joints or Extremities Neurological: Cranial nerves II-XII grossly intact Psych/Mental Status: Normal Affect, Appropriate, Alert and oriented to time, place, person, mood and affect Current Medications Acetaminophen (Tylenol) 500 mg PO Q4H PRN PRN PRN Reason: Temp > 100.4 F Buprenorphine HCl (Buprenorphine Hcl) 2 mg SL Q12H LARA; Taper Stop: 09/25/19 04:29 Last Admin: 09/24/19 04:54 Dose: 2 mg Documented by: Ciprofloxacin HCl (Ciloxan) 2 drop EACH EYE Q4 LARA Last Admin: 09/24/19 11:11 Dose: 2 drop Documented by: Clonidine (Catapres) 0.1 mg PO Q8H PRN PRN PRN Reason: RESTLESSNESS Last Admin: 09/23/19 22:03 Dose: 0.1 mg Documented by: Dicyclomine HCl (Bentyl) 20 mg PO Q6H PRN PRN PRN Reason: Abdominal Discomfort Gabapentin (Neurontin) 300 mg PO Q8H PRN PRN PRN Reason: moderate to severe anxiety Last Admin: 09/23/19 04:52 Dose: 300 mg Documented by: Hydroxyzine Pamoate (Vistaril Pamoate Capsule) 50 mg PO Q6H PRN PRN PRN Reason: mild anxiety Last Admin: 09/22/19 21:38 Dose: 50 mg Documented by: Ibuprofen (Motrin) 600 mg PO Q8H PRN PRN PRN Reason: Pain Score 1-10/10 Last Admin: 09/22/19 17:12 Dose: 600 mg Documented by: Loperamide HCl (Imodium) 2 mg PO Q4H PRN PRN PRN Reason: LOOSE STOOLS Methocarbamol (Methocarbamol) 1,500 mg PO Q6H PRN PRN PRN Reason: MUSCLE SPASM Last Admin: 09/23/19 22:03 Dose: 1,500 mg Documented by: Nicotine (Nicoderm Cq (Pbkc)) 21 mg TRANSDERM. DAILY [facility] Last Admin: 09/24/19 11:11 Dose: 21 mg Documented by: Ondansetron HCl (Zofran Odt) 8 mg PO Q8H PRN PRN PRN Reason: NAUSEA Prednisolone Acetate (Pred Forte Eye Drops (1 Ml)) 1 drop EACH EYE TID [facility] Last Admin: 09/24/19 04:56 Dose: 1 drop Documented by: Sodium Chloride () 10 - 40 ml IV UD PRN PRN Reason: SALINE FLUSH Last Admin: 09/23/19 04:52 Dose: 10 ml Documented by: Trazodone HCl (Desyrel) 100 mg PO QHS PRN PRN PRN Reason: INSOMNIA Last Admin: 09/23/19 22:03 Dose: 100 mg Documented by: STROKE Vital Signs/Narrative: Vital Signs Temp Pulse Resp BP Pulse Ox 09/24/19 11:15 97.6 F L 68 16 145/95 H 99 Medical Necessity - Tobacco Use Smoking Status: Current every day smoker Tobacco Use: Cigarettes Assessment/Plan All Active Problems Opioid withdrawal syndrome (Acute) Conjunctivitis, acute, bilateral (Acute) 1. Acute opiate withdrawal - symptoms well controlled. continue subutex taper 2. BL conjunctivitis - cipro/prednisone. f/u opthalmo o/p 3. Polysubstance abuse - also with amphetamines and cannabis however negative for opiates 4. Chronic Hep C - f/u as o/p 5. Tobacco abuse - patch DVT ppx: early ambulation This patient was seen by Shabbir Solomon PA-C under the supervision of Doctor Ochoa.
--- NOTE | 2019-09-24 14:17 | CASEMGMT ---
Addendum entered by Fang Valle 09/24/19 14:52: ORVILLE received call from Christine at [facility]. Outpatient appointment has been scheduled for September 30, 2019 at 8:00am. Appointment added to discharge paperwork for pt. SW updated pt on appointment with [facility]. Pt states understanding, denied additional needs or concerns. Original Note: Social Work Note RN updated this worker that pt is now agreeable to outpatient appointment with [facility]. Per previous notes, [facility] did try and see pt today and pt didn't want to speak to [facility]. ORVILLE placed a call to Christine at [facility] and left message asking if outpatient appointment can be arranged for pt. SW waiting for call back. Fang Valle LUNG PULLER, CLINICAL DATA MANAGER
--- NOTE | 2019-09-24 14:30 | DCINST_ITS ---
- Discharge Diagnoses Current Active Problems: Current Active and Chronic Problems Polysubstance (including opioids) dependence, daily use (Chronic) Conjunctivitis, acute, bilateral (Acute) You will use the following diet at home:: No restrictions Your food should be the consistency of: Regular Your liquids should be the consistency of: Regular/Thin Discharge Activity: Return to Normal Activity Allergies/Adverse Reactions: Allergies latex Allergy (Verified 09/21/19 23:35) Hives Penicillins [PCN] Allergy (Verified 09/21/19 23:35) Anaphylaxis venom-honey bee [bee venom (honey bee)] Allergy (Verified 09/21/19 23:35) Swelling Medications to take at Discharge Ciprofloxacin 0.3% [Ciloxan] 2 drp EACH EYE Q4 bottle 09/24/19 Primary Care Physician: Care Physician,No Primary [Primary Care Provider] - Please follow up with your Primary Care Physician in: 1-2 weeks Test Results: Test results from this visit will be discussed in further detail at your follow- up appointment, if applicable. Please Follow Up With: [facility] Program When: 1 day Please Follow Up With: Opthalmology When: 1 week Proposed Discharge Date: 09/24/19
--- NOTE | 2019-09-24 14:31 | PCM.DC.SUM ---
<Shabbir Solomon - Last Filed: 09/24/19 14:31> Discharge Date and Diagnosis - Problem List Patient Problems: Active and Suspected Problems Conjunctivitis, acute, bilateral (Acute) Date of Admission: 09/22/19 Date of Discharge: 09/24/19 - Primary Discharge Diagnosis Acute Problems: Active Problems Opiate abuse with withdrawal Conjunctivitis, acute, bilateral (Acute) Polysubstance abuse Nicotine abuse Chronic Hep C - Secondary Discharge Diagnosis Chronic Problems: Chronic Problems Polysubstance (including opioids) dependence, daily use (Chronic) Heroin abuse (Chronic) Tobacco use (Chronic) Methamphetamine abuse (Chronic) Hepatitis C (Chronic) Hospital Course and Treatment Operations: None Procedures: None Summary of Care Provided: Hospital Course: The patient is a 28 year old M with pmhx of heroin abuse, hep C, nicotine abuse who presented to the ER for eye problems, and requesting detox from heroin. He was diagnosed with BL conjunctivitis and placed on cipro and pred forte drops and admitted to the detox program on subutex taper. He also admitted meth abuse and tested positive for amphetamines and cannabis. He completed the subutex taper over the course of an otherwise unremarkable admission. He was referred to the [facility] program at discharge. He has 5 more days of cipro drops to complete for conjunctivitis. He was discharged home in stable condition. This patient was seen by Shabbir Solomon PA-C under the supervision of Dr. Ochoa.[] Patient Problems: Active and Suspected Problems Conjunctivitis, acute, bilateral (Acute) - Physical Exam Vitals/I&O's: Vital Signs Temp Pulse Resp BP Pulse Ox 97.6 F L 68 16 145/95 H 99 09/24/19 11:15 09/24/19 11:15 09/24/19 11:15 09/24/19 11:15 09/24/19 11:15 Oxygen Delivery Method Room Air Weight: 159 lb 13.362 oz Body Mass Index (BMI) 23.6 Intake and Output for Last 24 Hours 09/22/19 09/23/19 09/24/19 23:59 23:59 23:59 Intake Total 1050 / 1650 1000 / 1000 750 / 750 Balance 1050 / 1650 1000 / 1000 750 / 750 General: Alert, Oriented x3, Cooperative HEENT: Atraumatic, PERRLA, EOMI, Normocephalic Neck: Supple, No JVD, Negative Carotid Bruits Lungs: Clear to auscultation, Normal air movement Cardiovascular: Regular rate, No murmurs Abdomen: Bowel Sounds Present, Soft, Non Tender Extremities: No edema, Capillary Refill Less than 3 Seconds Skin: No rashes, No breakdown Musculoskeletal: No Tenderness to Palpation of Joints or Extremities Neurological: Cranial nerves II-XII grossly intact Psych/Mental Status: Normal Affect, Appropriate Current Medications Acetaminophen (Tylenol) 500 mg PO Q4H PRN PRN PRN Reason: Temp > 100.4 F Buprenorphine HCl (Buprenorphine Hcl) 2 mg SL Q12H LARA; Taper Stop: 09/25/19 04:29 Last Admin: 09/24/19 04:54 Dose: 2 mg Documented by: Ciprofloxacin HCl (Ciloxan) 2 drop EACH EYE Q4 LARA Last Admin: 09/24/19 13:47 Dose: 2 drop Documented by: Clonidine (Catapres) 0.1 mg PO Q8H PRN PRN PRN Reason: RESTLESSNESS Last Admin: 09/23/19 22:03 Dose: 0.1 mg Documented by: Dicyclomine HCl (Bentyl) 20 mg PO Q6H PRN PRN PRN Reason: Abdominal Discomfort Gabapentin (Neurontin) 300 mg PO Q8H PRN PRN PRN Reason: moderate to severe anxiety Last Admin: 09/23/19 04:52 Dose: 300 mg Documented by: Hydroxyzine Pamoate (Vistaril Pamoate Capsule) 50 mg PO Q6H PRN PRN PRN Reason: mild anxiety Last Admin: 09/22/19 21:38 Dose: 50 mg Documented by: Ibuprofen (Motrin) 600 mg PO Q8H PRN PRN PRN Reason: Pain Score 1-10/10 Last Admin: 09/22/19 17:12 Dose: 600 mg Documented by: Loperamide HCl (Imodium) 2 mg PO Q4H PRN PRN PRN Reason: LOOSE STOOLS Methocarbamol (Methocarbamol) 1,500 mg PO Q6H PRN PRN PRN Reason: MUSCLE SPASM Last Admin: 09/23/19 22:03 Dose: 1,500 mg Documented by: Nicotine (Nicoderm Cq (Pbkc)) 21 mg TRANSDERM. DAILY [facility] Last Admin: 09/24/19 11:11 Dose: 21 mg Documented by: Ondansetron HCl (Zofran Odt) 8 mg PO Q8H PRN PRN PRN Reason: NAUSEA Prednisolone Acetate (Pred Forte Eye Drops (1 Ml)) 1 drop EACH EYE TID [facility] Last Admin: 09/24/19 13:47 Dose: 1 drop Documented by: Sodium Chloride () 10 - 40 ml IV UD PRN PRN Reason: SALINE FLUSH Last Admin: 09/23/19 04:52 Dose: 10 ml Documented by: Trazodone HCl (Desyrel) 100 mg PO QHS PRN PRN PRN Reason: INSOMNIA Last Admin: 09/23/19 22:03 Dose: 100 mg Documented by: Discharge Diet: No Restrictions Discharge Activity: Return to Normal Activity Home Medications: Medications to take at Discharge Ciprofloxacin 0.3% [Ciloxan] 2 drp EACH EYE Q4 bottle 09/24/19 Primary Care Physician: Care Physician,No Primary [Primary Care Provider] - Please follow up with your Primary Care Physician in: 1-2 weeks Please Follow Up With: [facility] Program When: 1 day Please Follow Up With: Opthalmology When: 1 week Disposition: Home Minutes spent on discharge:: 35 Patient Condition:: Stable Medical Necessity - Tobacco Use Smoking Status: Current every day smoker Tobacco Use: Cigarettes Meaningful Use Info Meaningful Use Diagnoses (Choose all that apply): None applicable <Jerrod Ochoa - Last Filed: 09/24/19 16:18> Discharge Date and Diagnosis - Primary Discharge Diagnosis Acute Problems: Active Problems Conjunctivitis, acute, bilateral (Acute) - Secondary Discharge Diagnosis Chronic Problems: Chronic Problems Polysubstance (including opioids) dependence, daily use (Chronic) Heroin abuse (Chronic) Tobacco use (Chronic) Methamphetamine abuse (Chronic) Hepatitis C (Chronic) Hospital Course and Treatment Summary of Care Provided: The patient is a 28 year old M [] - Physical Exam Vitals/I&O's: Vital Signs Temp Pulse Resp BP Pulse Ox 97.6 F L 68 16 145/95 H 99 09/24/19 11:15 09/24/19 11:15 09/24/19 11:15 09/24/19 11:15 09/24/19 11:15 Oxygen Delivery Method Room Air Weight: 159 lb 13.362 oz Body Mass Index (BMI) 23.6 Intake and Output for Last 24 Hours 09/22/19 09/23/19 09/24/19 23:59 23:59 23:59 Intake Total 1050 / 1650 1000 / 1000 750 / 750 Balance 1050 / 1650 1000 / 1000 750 / 750 Current Medications Acetaminophen (Tylenol) 500 mg PO Q4H PRN PRN PRN Reason: Temp > 100.4 F Buprenorphine HCl (Buprenorphine Hcl) 2 mg SL Q12H LARA; Taper Stop: 09/25/19 04:29 Last Admin: 09/24/19 04:54 Dose: 2 mg Documented by: Ciprofloxacin HCl (Ciloxan) 2 drop EACH EYE Q4 LARA Last Admin: 09/24/19 13:47 Dose: 2 drop Documented by: Clonidine (Catapres) 0.1 mg PO Q8H PRN PRN PRN Reason: RESTLESSNESS Last Admin: 09/23/19 22:03 Dose: 0.1 mg Documented by: Dicyclomine HCl (Bentyl) 20 mg PO Q6H PRN PRN PRN Reason: Abdominal Discomfort Gabapentin (Neurontin) 300 mg PO Q8H PRN PRN PRN Reason: moderate to severe anxiety Last Admin: 09/23/19 04:52 Dose: 300 mg Documented by: Hydroxyzine Pamoate (Vistaril Pamoate Capsule) 50 mg PO Q6H PRN PRN PRN Reason: mild anxiety Last Admin: 09/22/19 21:38 Dose: 50 mg Documented by: Ibuprofen (Motrin) 600 mg PO Q8H PRN PRN PRN Reason: Pain Score 1-10/10 Last Admin: 09/22/19 17:12 Dose: 600 mg Documented by: Loperamide HCl (Imodium) 2 mg PO Q4H PRN PRN PRN Reason: LOOSE STOOLS Methocarbamol (Methocarbamol) 1,500 mg PO Q6H PRN PRN PRN Reason: MUSCLE SPASM Last Admin: 09/23/19 22:03 Dose: 1,500 mg Documented by: Nicotine (Nicoderm Cq (Pbkc)) 21 mg TRANSDERM. DAILY [facility]ARA Last Admin: 09/24/19 11:11 Dose: 21 mg Documented by: Ondansetron HCl (Zofran Odt) 8 mg PO Q8H PRN PRN PRN Reason: NAUSEA Prednisolone Acetate (Pred Forte Eye Drops (1 Ml)) 1 drop EACH EYE TID LARA Last Admin: 09/24/19 13:47 Dose: 1 drop Documented by: Sodium Chloride () 10 - 40 ml IV UD PRN PRN Reason: SALINE FLUSH Last Admin: 09/23/19 04:52 Dose: 10 ml Documented by: Trazodone HCl (Desyrel) 100 mg PO QHS PRN PRN PRN Reason: INSOMNIA Last Admin: 09/23/19 22:03 Dose: 100 mg Documented by: Addendum: Dr. Ochoa I personally examined the patient and reviewed the chart. I agree with the above. 28-year-old male presents to the ER for left conjunctivitis that had begun about 2 weeks ago. He then started developing symptoms on the right eye. He initially did come to the ER 4 days prior to this current admission and left the ER AGAINST MEDICAL ADVICE. He was given eyedrops which she says he has been using. However he comes in because he has been using IV heroin daily for about 4 years and his last use was 24 hours prior to admission, and he would like detox for his opiate use. We will continue with the opiate withdrawal protocol, his last dose is this evening at 430 and he would like to go home. There was some issue with him not wanting to follow-up with any type of however it was stressed to him if he needs help he needs to see somebody as an outpatient he very reluctantly agreed to follow-up as an outpatient with 180. Inpatient E&M: [id number] [facility]
[2019-09-24 16:15] VITALS: BP 153/96; PULSE 90; RESP 18; TEMP 36.7; O2SAT 99
--- OUTSIDE RECORDS SUMMARY | 2020-02-09 16:49 | XMS RPT_ITS | CCD ---
:1990 External Reference #:[id number] Author Organization [facility] Care Team Providers Name Role Phone ALANNALISA, R Unavailable Unavailable PHYSICIAN Unavailable Unavailable Annie DIMAS Unavailable Unavailable Kim Dooley Unavailable Curtis Gilman Unavailable Unavailable Андрей Unavailable Unavailable PROVIDER Unavailable Unavailable No Unavailable Unavailable Kim Dooley Unavailable Allergies Reported Allergen Reaction(s) Severity Date of Onset Location Bee anaphylaxis Critical, Critical 09-13-2016 - [facility] (2 0243) penicillin anaphylaxis Critical, Critical 09-13-2016 [facility] (2 0369) Problems Active Problems Category Problem Name Status Date Location Fracture of upper limb Displaced fracture of Active [address] [place] [address] shaft of right Sports Medici ne and clavicle, initial Orthopaedi cs (91106) encounter for closed fracture Hepatitis Unspecified viral Active 11-12-2017 - [facility] hepatitis C without (14621) hepatic coma Sprains and strains Ulnar collateral Active 11-12-2017 - [facility] ligament sprain of (79402) left elbow, initial encounter Substance-related Nicotine dependence, Active 11-12-2017 - [facility] disorders unspecified, (86415) uncomplicated Unclassified 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 Results Result Name Value Range Unit Interpretation Flag Date [facility] CNPN Telephone (UCWSTR) Normal 12-29-2019 [facility] MARIELAAMOSENSLINDSAY ([id number]) 1990 [facility] Date Time Provider Department (61737) 12/29/19 LINETTE BRITO) [facility] During your visit today, we [...] - Swelling Date Reviewed: 12/28/2019 Reviewed by: Dnaica Ferrari Ma - Fully Assessed Reason for Visit: Results [95] Problem List As Of Date 12/29/2019 Noted Resolved Depressive disorder [F32.9] 08/30/2015 Anxiety disorder [F41.9] 08/30/2015 Daytime somnolence [R40.0] 08/30/2015 Hepatitis C virus infection without hepatic com*08/30/2015 Opioid dependence in remission (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 Clinical correlation is required. Comment: Performed By: #### SYPHTX ## ## [facility] [address] [place], [place] [address] Syphilis Screen Non Reactive Non Reactive Normal 12-28-19 [facility] Rslt [place] (95401) Comment: Performed By: #### SYPHTX ## ## [facility] [address] [place], [place] [address] progress on 2019-11 PROGRESS HNO ID: [id number] Normal 12-28-2019 [place] Author: Tristan Zhang [facility] Service: ? [place] Author Type: Physician ([id number]) Type: Progress Notes Filed: 12/28/2019 10:05 AM [...] 2019-12-28 CNOV Office Visit (UCWSTR) Normal 12-28-[address] [place] [address] LINDSAY Malagon ([id number]) 1990 [facility] Date Time Provider Department (68943) 12/28/19 9:30 AM TRISTAN ZHANG [facility] During your visit today, we [...] [A63.0] Order(s):SYPHILIS TOTAL W/REFLEX [SQSYPHTX] Order #: [id number] FUTURE CONSULT TO UROLOGY [9041] Order #: [id number]: 1 FUTURE Problem List As Of Date [...] CULTURE URINE --> Status: F Normal [facility]-2018 [facility] (<1,000 CFU/ml). (99140) Comment: Order Comment: Specimen Sour ce Comment:Urine, clean catch Performed By: #### C/UR #### [facility] [address] [place] [phone] drugs of abuse on Opiates, Ur Negative Normal 11-05-2018 [employer] [facility] (84548) Comment: Performed By: #### CUA2, DRG A4 #### [address] [place] [address] Phencyclidine (PCP), Ur Negative Normal 2018 [facility] (09129) Comment: Result Comment: The expected value for [...] Performed By: #### CUA2, DRG A4 #### [address] [address] Methadone, Ur Negative Normal 11-05-2018 [facility] (46627) Comment: Performed By: #### CUA2, DRG A4 #### [address] [place] [address] Benzodiazepines, Ur Negative Normal 11-05-2018 [facility] (59735) Comment: Performed By: #### CUA2, DRG A4 #### [address] [place] [address] Cocaine, Ur Negative Normal 11-05-2018 [facility] (70147) Comment: Performed By: #### CUA2, DRG A4 #### [address] [place] [address] Amphetamines, Ur Negative Normal 11-05-2018 [facility] (15932) Comment: Performed By: #### CUA2, DRG A4 #### [address] [place] [address] Barbiturates, Ur Negative Normal 11-05-2018 [facility] (19080) Comment: Performed By: #### CUA2, DRG A4 #### [facility] [address] [place] [address] Oxycodone/Oxymorphine,Ur Negative Normal 11-05 [facility] (21642) Comment: Performed By: #### CUA2, DRG A4 #### [facility] [address] [place] [address] ct abdomen/pelvis w/o contrast on 2018-11-05 CT Abdomen/Pelvis w/o Patient Name: LINDSAY DARLING Normal 11-05-2018 [facility] Contrast System (89317) CT Exam Date/Time 11/05/2018 12:58:[address] Abdomen/Pelvis (No PO, No IV) Ordering Physician MD ALEXYS, [facility] Accession Number [id number] CPT4 Codes 32900 (CT Abdomen/Pelvis (No PO, No IV)) Reason [...] 2018-11-05 Appearance (U) Sl. Cloudy Normal 11-05-2018 [facility] (86955) Comment: Result Comment: Reference Ra nge: Clear Performed By: #### CUA2, DRG A4 #### [facility] [address] [place] [address] Bilirubin,Urine Negative Normal 11-05-2018 [facility] (03999) Comment: Result Comment: Reference Ra nge: Negative Performed By: #### CUA2, DRG A4 #### [facility] [address] [facility] [place] [address] Color (U) Yellow Normal 11-05-2018 [facility] (47361) Comment: Result Comment: Reference Ra nge: Lt. Yellow Performed By: #### CUA2, DRG A4 #### [address] [facility] [place] [address] Glucose Ql (U) NEG (Normal) Normal 11-05-2018 [facility] (54300) Comment: Result Comment: Reference Ra nge: Normal (<70) Performed By: #### CUA2, DRG A4 #### [address] [address] Ketone,Urine Negative Normal 11-05-2018 [facility] (38411) Comment: Result Comment: Reference Ra nge: Negative Performed By: #### CUA2, DRG A4 #### [address] [address] Leukocytes,Urine NEG Normal 11-05-2018 [facility] (46512) Comment: Result Comment: Reference Ra nge: Negative Performed By: #### CUA2, DRG A4 #### [address] [address] Nitrites,Urine NEG Normal 11-05-2018 [facility] (20020) Comment: Result Comment: Reference Ra nge: Negative Performed By: #### CUA2, DRG A4 #### [address] [place] [address] Occult Blood,Urine Negative Normal 11-05-2018 [facility] (96154) Comment: Result Comment: Reference Ra nge: Negative Performed By: #### CUA2, DRG A4 #### [address] [place] [address] pH (U) 8.0 5.0-8.0 Normal 11-05-2018 [facility] (29160) Comment: Performed By: #### CUA2, DRG A4 #### [address] [address] Protein (U) [Mass/Vol] NEG mg/dL Normal 019 [facility] (09681) Comment: Result Comment: Reference Ra nge: Negative Performed By: #### CUA2, DRG A4 #### [address] [place] [address] Specific Fowler,Urine 1.010 1.005-1.030 Normal 11-05 [facility] (40722) Comment: Performed By: #### CUA2, DRG A4 #### [address] [place] [address] Urobilinogen,Urine Normal (0.2) Normal 11-06-19 [facility] (39764) Comment: Result Comment: Reference Ra nge: Normal (0-1) Performed By: #### CUA2, DRG A4 #### [address] [address] basic metabolic panel on 2018-11-05 Calcium [Mass/Vol] 9.4 8.4-10.4 mg/dL Normal 11-05-2018 [facility] (98977) Comment: Performed By: #### BMP3 #### [address] [address] Anion gap [Moles/Vol] 7 Normal 11-06-19 [facility] (64155) Comment: Performed By: #### BMP3 #### [address] [address] CO2 [Moles/Vol] 30 22-30 mmol/L Normal 11-05-2018 [facility] (29343) Comment: Performed By: #### BMP3 #### [address] [place] [address] Creatinine [Mass/Vol] 0.59 0.52-1.25 mg/dL Normal 11-06-19 [facility] (20904) Comment: Performed By: #### BMP3 #### [address] [place] [address] GFR/1.73 sq M > 60.0 >60 mL/min/{1.73_m2} Normal 9 [facility] predicted among Syst em (65500) blacks MDRD (S/P/Bld) [Vol rate/Area] Comment: Performed By: #### BMP3 #### [facility] [address] [place] [address] GFR/1.73 sq M > 60.0 >60 mL/min/{1.73_m2} Normal 9 [facility] predicted among Syst em (65793) non-blacks MDRD (S/P/Bld) [Vol rate/Area] Comment: Result Comment: Source- MDRD equation with creatinine calibration to IDMS(NKDEP) eGFR not recommended for carmine g dose adjustment Performed By: #### BMP3 #### [facility] [place] [address] Glucose [Mass/Vol] 105 70-100 mg/dL High 11-05-2018 [facility] (57163) Comment: Performed By: #### BMP3 #### [facility] [place] [address] Urea nitrogen [Mass/Vol] 12 7-20 mg/dL Normal 11-05 [facility] (54470) Comment: Performed By: #### BMP3 #### [facility] [place] [address] Chloride [Moles/Vol] 101 98-107 mmol/L Normal 9 [facility] (66685) Comment: Performed By: #### BMP3 #### [facility] [address] [place] [address] Potassium [Moles/Vol] 3.9 3.5-5.1 mmol/L Normal 11-06-19 19 [facility] (22105) Comment: Performed By: #### BMP3 #### [facility] [address] [place] [address] Sodium [Moles/Vol] 137 135-145 mmol/L Normal 11-05-2018 [facility] (18620) Comment: Performed By: #### BMP3 #### [facility] [address] [place] [address], [place] [address] replaced document: (p) culture, fungus w / [id number] on 2016-12-21 GE use only - for . Invalid Interpretation 12-21-2016 - [facility] [employer] import Code 12-21-2016 [facility] and when terms are not O rthopaedics (21474) otherwise specified wound culture on 13-12-18 WOUND CULTURE GRAM STAIN Normal 12-15-2016 [facility] FEW WBC'S [place] (00 000) FEW GRAM POSITIVE COCCI FEW GRAM POSITIVE BACILLUS ORGANISM 1: DIPHTHEROIDS QUANTITATION MODERATE ID TO FOLLOW NOT VIABLE FOR SENSITIVITY Comment: Order Comment: Boaz: M Performed By: #### L500.0140 0, L500.97276, L500.53343, L500.74580, L550.70361 ####[facility] [id number] [place], [place] [address]Xz# [phone] gfr est on IF AMER Greater than 60 Normal 12-16-[address] [place] [address] (23911) Comment: Order Comment: Boaz: M Performed By: #### L500.0140 0, L500.92374, L500.09911, L500.64370, L550.21207 ####[facility] [id number] [place] [address]Oa# [phone] IF non-AFR AMER Greater than 60 Normal 12-16-[address] [place] [address] (12693) Comment: Order Comment: Boaz: M Performed By: #### L500.0140 0, L500.56939, L500.05273, L500.37540, L550.66225 ####[facility] [address]VK2674 [place], [place] [address]Gq# [phone] cmp on 2016-12-15 Alanine aminotransferase (ALT) 45 13-61 IU/L Normal 12-15-2016 [facility] [place] (00 000) Comment: Order Comment: Boaz: M Performed By: #### L500.0140 0, L500.74554, L500.25599, L500.42911, L550.47380 ####[facility] [id number] [place], [place] [address]Zb# [phone] Albumin 3.4 3.2-5.0 GM/DL Normal 12-15-2016 [facility] (79750) Comment: Order Comment: Boaz: M Performed By: #### L500.0140 0, L500.90635, L500.42079, L500.02975, L550.02176 ####[facility] NDJRYRPQFD1762 [place], [place] [address]Kh# [phone] Albumin/Globulin Ratio 0.9 0.8-2.0 {ratio} Normal 017 [facility] (00 000) Comment: Order Comment: Boaz: M Performed By: #### L500.0140 0, L500.74924, L500.34247, L500.03396, L550.45861 ####[facility] [id number] [place], [place] [address]It# [phone] ALK PHOS 130 45-117 U/L High 12-15-2016 [facility] (45856) Comment: Order Comment: Boaz: M Performed By: #### L500.0140 0, L500.64724, L500.20304, L500.87271, L550.01357 ####[facility] [id number] [place], [place] [address]Lr# [phone] Anion gap 9 5-16 MMOL/L Normal 12-15-2016 [facility] (45940) Comment: Order Comment: Boaz: M Performed By: #### L500.0140 0, L500.77204, L500.19808, L500.85152, L550.34620 ####[facility] RCEPOLEZXU3994 [place], [place] [address]Ly# [phone] BILI TOTAL 0.3 0.2-1.0 MG/DL Normal 12-15-2016 [facility] (79360) Comment: Order Comment: Boaz: M Performed By: #### L500.0140 0, L500.19794, L500.21504, L500.54248, L550.37554 ####[facility] [id number] [place], [place] [address]Wq# [phone] BUN/Creatinine Ratio 18 15-24 mg/mg Normal 7 [facility] (51505) Comment: Order Comment: Boaz: M Performed By: #### L500.0140 0, L500.09378, L500.38477, L500.67512, L550.46115 ####[facility] CITAHHLBAW0622 [place], [place] [address]Yd# [phone] Calcium 9.8 8.5-10.1 MG/DL Normal 12-15-2016 [facility] (96308) Comment: Order Comment: Boaz: M Performed By: #### L500.0140 0, L500.66679, L500.77063, L500.27090, L550.73543 ####[facility] DRPLGEHEVR8824 [place], [place] [address]Sg# [phone] Chloride 100 98-107 MMOL/L Normal 12-15-2016 [facility] (67077) Comment: Order Comment: Boaz: M Performed By: #### L500.0140 0, L500.63131, L500.35773, L500.98656, L550.14807 ####[facility] [id number] [place], [place] [address]Pa# [phone] CO2 30 21-32 MMOL/L Normal 12-15-2016 [facility] (75501) Comment: Order Comment: Boaz: M Performed By: #### L500.0140 0, L500.05808, L500.37816, L500.65778, L550.33657 ####[facility] RYGKRBMZWL6836 [place], [place] [address]Em# [phone] Creatinine 0.867 0.670-1.170 MG/DL Normal 12-15-2016 [facility] (25260) Comment: Order Comment: Boaz: M Result Comment: Patients rec eiving either N-Acetylcysteine (NAC) orMetamizole prior to venipu ncture, may have falsely depressedresults. Performed By: #### L500.0140 0, L500.80401, L500.57814, L500.41082, L550.69526 ####[facility] LSYQTFSXSV7602 [place], [place] [address]Ht# [phone] Globulin 3.6 2.2-4.2 GM/DL Normal 12-15-2016 [facility] (06074) Comment: Order Comment: Boaz: M Performed By: #### L500.0140 0, L500.18774, L500.86475, L500.65707, L550.13886 ####[facility] TOQKTCTCDV9739 [place], [place] [address]Po# [phone] Glucose mass conc 98 70-100 MG/DL Normal 12-15-2016 [facility] (23199) Comment: Order Comment: Boaz: M Result Comment: 33-185-Kayed l Fasting; 441-222-Meruxlls Fasting; greaterthan 126 on more than one result- Diabetes. ADA guidelines Performed By: #### L500.0140 0, L500.04056, L500.64550, L500.95931, L550.46605 ####[facility] VNKWZIJUYW4193 [place], [place] [address]We# [phone] Potassium molar conc 4.3 3.5-5.1 MMOL/L Normal 7 [facility] (03103) Comment: Order Comment: Boaz: M Performed By: #### L500.0140 0, L500.39503, L500.71081, L500.99846, L550.87185 ####[facility] ELMHAWBIJE7379 [place], [place] [address]Vd# [phone] Protein 7.0 6.0-8.5 GM/DL Normal 12-15-2016 [facility] (96227) Comment: Order Comment: Boaz: M Performed By: #### L500.0140 0, L500.08491, L500.69355, L500.76019, L550.55838 ####[facility] CTEMNUSOIK4323 [place], [place] [address]Vk# [phone] SGOT (AST) 30 8-34 U/L Normal 12-15-2016 [facility] (20533) Comment: Order Comment: Boaz: M Performed By: #### L500.0140 0, L500.66533, L500.91265, L500.95066, L550.91078 ####[facility] [place] [address]Ex# [phone] Sodium 139 136-145 MMOL/L Normal 12-15-2016 [facility] (67539) Comment: Order Comment: Boaz: M Performed By: #### L500.0140 0, L500.98266, L500.73706, L500.67191, L550.64783 ####[address] [address]Dy# [phone] Urea nitrogen 16 7-26 MG/DL Normal 12-15-2016 [facility] (78696) Comment: Order Comment: Boaz: M Performed By: #### L500.0140 0, L500.22003, L500.11185, L500.66492, L550.11295 ####[facility] [place] [address]Zh# [phone] cbc w/diff on 12-15 BASO ABS 0.10 0-0.2 K/CU MM Normal 12-15-2016 [facility] (73588) Comment: Order Comment: Boaz: M Performed By: #### L500.0140 0, L500.21571, L500.57997, L500.99011, L550.42073 ####[address] [place], [place] [address]Dc# [phone] Basophils/100 WBC Auto (Bld) 1.4 0-2 % Normal 0 12-15-2016 [facility] (43357) Comment: Order Comment: Boaz: M Performed By: #### L500.0140 0, L500.83891, L500.64354, L500.17216, L550.53213 ####[facility] [id number] [place], [place] [address]Do# [phone] EOS ABS 0.40 0-0.5 K/CU MM Normal 12-15-2016 [facility] [place] (95573) Comment: Order Comment: Boaz: M Performed By: #### L500.0140 0, L500.22176, L500.43280, L500.96215, L550.15647 ####[facility] [id number] [place], [place] [address]Gz# [phone] Eosinophils/100 leukocytes 6.1 0-5 % High [facility] (54115) Comment: Order Comment: Boaz: M Performed By: #### L500.0140 0, L500.75316, L500.97554, L500.67759, L550.24584 ####[facility] [id number] [place], [place] [address]Tx# [phone] Erythrocyte distribution 13.1 11-14.5 % Normal 12-15 [facility] width Auto Ratio (RBC) [place] (08729) Comment: Order Comment: Boaz: M Performed By: #### L500.0140 0, L500.66180, L500.74475, L500.85483, L550.67873 ####[facility] [id number] [place], [place] [address]Zw# [phone] Erythrocytes (RBC) 4.41 4.50-6.00 M/CU MM Low 12-15-2016 [facility] (90002) Comment: Order Comment: Boaz: M Performed By: #### L500.0140 0, L500.86987, L500.06365, L500.42632, L550.21375 ####[facility] [id number] [place], [place] [address]Cn# [phone] Erythrocytes (RBC) 0.0 Less than 1 % Normal [address] [place] [address] (413[address]) Comment: Order Comment: Boaz: M Performed By: #### L500.0140 0, L500.01591, L500.11623, L500.07666, L550.74638 ####[facility] HHSHHDXFXC3924 [place], [place] [address]Na# [phone] Hematocrit (HCT) 37.4 41.0-53.0 % Low 12-15-2016 [facility] (62861) Comment: Order Comment: Boaz: M Performed By: #### L500.0140 0, L500.65564, L500.79778, L500.61308, L550.72606 ####[address] [address]Iy# [phone] Hemoglobin mass conc (Bld) 12.4 13.5-17.5 G/DL Low [facility] (00 000) Comment: Order Comment: Boaz: M Performed By: #### L500.0140 0, L500.41421, L500.19645, L500.51786, L550.70682 ####[facility] CODZPBIKWZ7413 [place], [place] [address]Yy# [phone] IMMATR GRAN ABS 0.10 Less than 2 K/CU MM Normal 12-15-2016 [facility] (00 000) Comment: Order Comment: Boaz: M Performed By: #### L500.0140 0, L500.82731, L500.38106, L500.42465, L550.64947 ####[facility] GOKFZSEXPH1496 [place], [place] [address]Wu# [phone] IMMATURE GRAN % 0.8 Less than 2 % Normal 12-15-2016 [facility] (93360) Comment: Order Comment: Boaz: M Performed By: #### L500.0140 0, L500.23901, L500.67103, L500.38167, L550.09487 ####[facility] ODQXXQMWLU7717 [place], [place] [address]Vx# [phone] Lymphocytes 3.60 0.9-4.4 K/CU MM Normal 12-15-2016 [facility] (62047) Comment: Order Comment: Boaz: M Performed By: #### L500.0140 0, L500.65525, L500.55737, L500.63619, L550.68744 ####[facility] [place], [place] [address]Xh# [phone] Lymphocytes/100 leukocytes 56.6 20-40 % High [facility] (99898) Comment: Order Comment: Boaz: M Performed By: #### L500.0140 0, L500.85793, L500.60493, L500.69280, L550.45643 ####[address] [place], [place] [address]Uj# [phone] MCHC mass conc (RBC) 33.2 32.0-36.0 GM/DL Normal 7 [facility] (00 000) Comment: Order Comment: Boaz: M Performed By: #### L500.0140 0, L500.03610, L500.92753, L500.90047, L550.27180 ####[facility] BBPFSPZXNV7689 [place], [place] [address]Jm# [phone] MCV 84.8 80.0-99.0 fl Normal 12-15-2016 [facility] (40578) Comment: Order Comment: Boaz: M Performed By: #### L500.0140 0, L500.34170, L500.36792, L500.18517, L550.95244 ####[facility] [id number] [place], [place] [address]Lk# [phone] MONO ABS 0.50 0.1-1.1 K/CU MM Normal 12-15-2016 [facility] (25846) Comment: Order Comment: Boaz: M Performed By: #### L500.0140 0, L500.12041, L500.58570, L500.55848, L550.37278 ####[facility] TRGQVHRPVJ4168 [place], [place] [address]Ra# [phone] Monocytes/100 leukocytes 8.5 2-10 % Normal 12-15 [facility] (43757) Comment: Order Comment: Boaz: M Performed By: #### L500.0140 0, L500.85713, L500.75347, L500.87208, L550.83317 ####[facility] [id number] [place], [place] [address]Mn# [phone] Neutrophils 1.70 2.0-8.3 K/CU MM Low 12-15-2016 [facility] (65457) Comment: Order Comment: Boaz: M Performed By: #### L500.0140 0, L500.43401, L500.68826, L500.38989, L550.57026 ####[facility] [address] [place] [address]At# [phone] Neutrophils/100 WBC Auto (Bld) 26.6 45-75 % Low 12-15-2016 [facility] (00 000) Comment: Order Comment: Boaz: M Performed By: #### L500.0140 0, L500.51261, L500.48810, L500.50166, L550.00971 ####[facility] [id number] [place], [place] [address]Hc# [phone] Platelet mean volume (PMV) 8.8 9.4-12.4 fL Low [facility] (21213) Comment: Order Comment: Boaz: M Performed By: #### L500.0140 0, L500.81115, L500.95745, L500.62130, L550.56425 ####[facility] [id number] [place], [place] [address]Ta# [phone] Platelets 242 150-450 K/CU MM Normal 12-15-2016 [facility] ([id number]) Comment: Order Comment: Boaz: M Performed By: #### L500.0140 0, L500.02498, L500.04093, L500.17339, L550.00041 ####[facility] [id number] [place], [place] [address]Ok# [phone] WBC (Leukocytes) 6.4 4.5-11.0 K/CU MM Normal 12-15-2016 [facility] ([id number]) Comment: Order Comment: Boaz: M Performed By: #### L500.0140 0, L500.17091, L500.60387, L500.64026, L550.58601 ####[facility] ZRUMYTSUNW7436 [place], [place] [address]Cv# [phone] gfr est on IF AMER Greater than 60 Normal 12-14-[address] [place] [address] (90151) Comment: Order Comment: Boaz: M Performed By: #### L500.0140 0, L500.31157, L500.23701, L500.56799, L550.96176 ####[facility] IWNUIKYZYL7005 [place], [place] [address]Vv# [phone] IF non-AFR AMER Greater than 60 Normal 12-14-[address] [place] [address] (46253) Comment: Order Comment: Boaz: M Performed By: #### L500.0140 0, L500.41385, L500.85996, L500.91168, L550.96941 ####[facility] [address] [place] [address]Sm# [phone] cmp on 2016-12-13 Alanine aminotransferase (ALT) 46 13-61 IU/L Normal 12-13-2016 [facility] (00 000) Comment: Order Comment: Boaz: M Performed By: #### L500.0140 0, L500.81103, L500.32231, L500.10318, L550.36982 ####[facility] TMQHMUZAAG5996 [place], [place] [address]Jb# [phone] Albumin 3.4 3.2-5.0 GM/DL Normal 12-13-2016 [facility] (41344) Comment: Order Comment: Boaz: M Performed By: #### L500.0140 0, L500.97635, L500.46871, L500.05939, L550.79806 ####[facility] DUHQGUJGFS8033 [place], [place] [address]Ot# [phone] Albumin/Globulin Ratio 1.0 0.8-2.0 {ratio} Normal 017 [facility] (00 000) Comment: Order Comment: Boaz: M Performed By: #### L500.0140 0, L500.65554, L500.90763, L500.54788, L550.01594 ####[facility] SOBXUPTBWI6326 [place], [place] [address]Xu# [phone] ALK PHOS 114 45-117 U/L Normal 12-13-2016 [facility] (48772) Comment: Order Comment: Boaz: M Performed By: #### L500.0140 0, L500.55032, L500.60281, L500.98599, L550.29940 ####[facility] GFLCNFKPWK9747 [place], [place] [address]Fw# [phone] Anion gap 9 5-16 MMOL/L Normal 12-13-2016 [facility] (64269) Comment: Order Comment: Boaz: M Performed By: #### L500.0140 0, L500.06910, L500.12152, L500.91584, L550.00712 ####[facility] LEAXQJILMS8128 [place], [place] [address]Jf# [phone] BILI TOTAL 0.3 0.2-1.0 MG/DL Normal 12-13-2016 [facility] (51906) Comment: Order Comment: Boaz: M Performed By: #### L500.0140 0, L500.89068, L500.51032, L500.59008, L550.99139 ####[facility] TXGZPADAJH8566 [place], [place] [address]Zi# [phone] BUN/Creatinine Ratio 19 15-24 mg/mg Normal 7 [facility] (70160) Comment: Order Comment: Boaz: M Performed By: #### L500.0140 0, L500.31058, L500.18803, L500.09527, L550.17307 ####[facility] ATIBLOFXNV2487 [place], [place] [address]Sf# [phone] Calcium 9.2 8.5-10.1 MG/DL Normal 12-13-2016 [facility] (83661) Comment: Order Comment: Boaz: M Performed By: #### L500.0140 0, L500.84346, L500.37481, L500.67504, L550.47871 ####[facility] AXAKEREYLZ9378 [place], [place] [address]Zv# [phone] Chloride 102 98-107 MMOL/L Normal 12-13-2016 [facility] (71294) Comment: Order Comment: Boaz: M Performed By: #### L500.0140 0, L500.89026, L500.16599, L500.27438, L550.93124 ####[facility] RBVTBEFDJV0924 [place], [place] [address]Gl# [phone] CO2 27 21-32 MMOL/L Normal 12-13-2016 [facility] (66928) Comment: Order Comment: Boaz: M Performed By: #### L500.0140 0, L500.31697, L500.17387, L500.57850, L550.81484 ####[facility] ZMKBLQNPLJ3574 [place], [place] [address]Hx# [phone] Creatinine 0.774 0.670-1.170 MG/DL Normal 12-13-2016 [facility] (72083) Comment: Order Comment: Boaz: M Result Comment: Patients rec eiving either N-Acetylcysteine (NAC) orMetamizole prior to venipu ncture, may have falsely depressedresults. Performed By: #### L500.0140 0, L500.06841, L500.46813, L500.93855, L550.60082 ####[facility] XZFOWJWHIK2882 [place], [place] [address]Gb# [phone] Globulin 3.3 2.2-4.2 GM/DL Normal 12-13-2016 [facility] (44469) Comment: Order Comment: Boaz: M Performed By: #### L500.0140 0, L500.26924, L500.88962, L500.02138, L550.01693 ####[facility] GTEXAVEDXZ3004 [place], [place] [address]Vz# [phone] Glucose mass conc 83 70-100 MG/DL Normal 12-13-2016 [facility] (00638) Comment: Order Comment: Boaz: M Result Comment: 13-704-Nbkne l Fasting; 265-154-Yjbnfhfr Fasting; greaterthan 126 on more than one result- Diabetes. ADA guidelines Performed By: #### L500.0140 0, L500.09337, L500.48992, L500.73080, L550.25443 ####[facility] XCENZSUPLF5529 [place], [place] [address]Yy# [phone] Potassium molar conc 4.5 3.5-5.1 MMOL/L Normal 7 [facility] (57184) Comment: Order Comment: Boaz: M Performed By: #### L500.0140 0, L500.80208, L500.58187, L500.08721, L550.94644 ####[facility] DUBLTWISLR6872 [place], [place] [address]Lv# [phone] Protein 6.7 6.0-8.5 GM/DL Normal 12-13-2016 [facility] (70420) Comment: Order Comment: Boaz: M Performed By: #### L500.0140 0, L500.66829, L500.28541, L500.83419, L550.72114 ####[facility] HMULTDHBNI0734 [place], [place] [address]Zc# [phone] SGOT (AST) 30 8-34 U/L Normal 12-13-2016 [facility] (18945) Comment: Order Comment: Boaz: M Performed By: #### L500.0140 0, L500.66043, L500.33093, L500.79251, L550.81359 ####[facility] XLYYYWUPIN3090 [place], [place] [address]Fh# [phone] Sodium 137 136-145 MMOL/L Normal 12-13-2016 [facility] (90355) Comment: Order Comment: Boaz: M Performed By: #### L500.0140 0, L500.93496, L500.22586, L500.52397, L550.03026 ####[facility] MGTLFUSDAP6725 [place], [place] [address]Dx# [phone] Urea nitrogen 15 7-26 MG/DL Normal 12-13-2016 [facility] (48591) Comment: Order Comment: Boaz: M Performed By: #### L500.0140 0, L500.94148, L500.51802, L500.23745, L550.68961 ####[facility] MTYNYBDNBC7600 [place], [place] [address]Sy# [phone] cbc w/diff on 12-13 BASO ABS 0.10 0-0.2 K/CU MM Normal 12-13-2016 [facility] (71132) Comment: Order Comment: Boaz: M Performed By: #### L500.0140 0, L500.61199, L500.92213, L500.58631, L550.60659 ####[facility] VJKQKWWILW9907 [place], [place] [address]Eq# [phone] Basophils/100 WBC Auto (Bld) 1.2 0-2 % Normal 0 12-13-2016 [facility] (08043) Comment: Order Comment: Boaz: M Performed By: #### L500.0140 0, L500.31955, L500.14664, L500.72465, L550.94825 ####[facility] MOYPTGCZIY0783 [place], [place] [address]Qm# [phone] EOS ABS 0.30 0-0.5 K/CU MM Normal 12-13-2016 [facility] [place] (16549) Comment: Order Comment: Boaz: M Performed By: #### L500.0140 0, L500.38030, L500.18686, L500.87998, L550.88839 ####[address] [address]Wd# [phone] Eosinophils/100 leukocytes 4.5 0-5 % Normal [facility] (31336) Comment: Order Comment: Boaz: M Performed By: #### L500.0140 0, L500.26297, L500.58748, L500.09795, L550.43262 ####[facility] VMTJYKZVSW5105 [place], [place] [address]Uf# [phone] Erythrocyte distribution 13.3 11-14.5 % Normal 12-13 [facility] width Auto Ratio (RBC) [place] (63865) Comment: Order Comment: Boaz: M Performed By: #### L500.0140 0, L500.06526, L500.85756, L500.57175, L550.89786 ####[facility] [address] [place] [address]Xw# [phone] Erythrocytes (RBC) 0.0 Less than 1 % Normal 7 [facility] (75338) Comment: Order Comment: Boaz: M Performed By: #### L500.0140 0, L500.73967, L500.13854, L500.27454, L550.86037 ####[facility] GFFRUXJIIM6889 [place], [place] [address]Eu# [phone] Erythrocytes (RBC) 4.24 4.50-6.00 M/CU MM Low 12-13-2016 [facility] (44631) Comment: Order Comment: Boaz: M Performed By: #### L500.0140 0, L500.21159, L500.06861, L500.98683, L550.96014 ####[facility] BUHREBBSXW6604 [place], [place] [address]In# [phone] Hematocrit (HCT) 36.8 41.0-53.0 % Low 12-13-2016 [facility] (81519) Comment: Order Comment: Boaz: M Performed By: #### L500.0140 0, L500.39648, L500.21031, L500.05147, L550.36290 ####[facility] OTKKIXSFAZ8504 [place], [place] [address]Ao# [phone] Hemoglobin mass conc (Bld) 12.0 13.5-17.5 G/DL Low [facility] (00 000) Comment: Order Comment: Boaz: M Performed By: #### L500.0140 0, L500.58050, L500.57368, L500.32962, L550.18227 ####[facility] LXCNXXYXFV9972 [place], [place] [address]Ff# [phone] IMMATR GRAN ABS 0.00 Less than 2 K/CU MM Normal 12-13-2016 [facility] (00 000) Comment: Order Comment: Boaz: M Performed By: #### L500.0140 0, L500.87810, L500.85638, L500.99106, L550.40097 ####[facility] STXXZAENHO5763 [place], [place] [address]Ac# [phone] IMMATURE GRAN % 0.5 Less than 2 % Normal 12-13-2016 [facility] (54249) Comment: Order Comment: Boaz: M Performed By: #### L500.0140 0, L500.81217, L500.02835, L500.11328, L550.48066 ####[facility] HVVDHBAUWZ8653 [place], [place] [address]Kz# [phone] Lymphocytes 4.10 0.9-4.4 K/CU MM Normal 12-13-2016 [facility] (87312) Comment: Order Comment: Boaz: M Performed By: #### L500.0140 0, L500.99446, L500.49126, L500.89589, L550.79690 ####[facility]13[address] [place], [place] [address]Lw# [phone] Lymphocytes/100 leukocytes 63.2 20-40 % High [facility] (25191) Comment: Order Comment: Boaz: M Performed By: #### L500.0140 0, L500.01232, L500.93936, L500.34569, L550.21271 ####[facility] JRKHOTQTXS0742 [place], [place] [address]Eq# [phone] MCHC mass conc (RBC) 32.6 32.0-36.0 GM/DL Normal 7 [facility] (00 000) Comment: Order Comment: Boaz: M Performed By: #### L500.0140 0, L500.10169, L500.72317, L500.41619, L550.81419 ####[facility] WBIHHMAQBD0951 [place], [place] [address]Pn# [phone] MCV 86.8 80.0-99.0 fl Normal 12-13-2016 [facility] (96938) Comment: Order Comment: Boaz: M Performed By: #### L500.0140 0, L500.82638, L500.49181, L500.76699, L550.76452 ####[facility] ABSTQYMBUP3009 [place], [place] [address]Lp# [phone] MONO ABS 0.50 0.1-1.1 K/CU MM Normal 12-13-2016 [facility] (80474) Comment: Order Comment: Boaz: M Performed By: #### L500.0140 0, L500.42451, L500.87354, L500.60838, L550.03764 ####[facility] WKLMAAHSQI1074 [place], [place] [address]Jt# [phone] Monocytes/100 leukocytes 7.6 2-10 % Normal 12-13 [facility] (35436) Comment: Order Comment: Boaz: M Performed By: #### L500.0140 0, L500.04657, L500.88588, L500.97463, L550.31816 ####[address] [address]Ug# [phone] Neutrophils 1.50 2.0-8.3 K/CU MM Low 12-13-2016 [facility] (48973) Comment: Order Comment: Boaz: M Performed By: #### L500.0140 0, L500.86662, L500.34516, L500.95291, L550.08838 ####[address] [address]Bi# [phone] Neutrophils/100 WBC Auto (Bld) 23.0 45-75 % Low 12-13-2016 [facility] (00 000) Comment: Order Comment: Boaz: M Performed By: #### L500.0140 0, L500.07433, L500.71063, L500.60728, L550.77849 ####[address] [address]Ev# [phone] Platelet mean volume (PMV) 9.1 9.4-12.4 fL Low [facility] (88988) Comment: Order Comment: Boaz: M Performed By: #### L500.0140 0, L500.90451, L500.72138, L500.44406, L550.40728 ####[facility] LYXWPFYAYE1862 [place], [place] [address]Mj# [phone] Platelets 233 150-450 K/CU MM Normal 12-13-2016 [facility] (15203) Comment: Order Comment: Boaz: M Performed By: #### L500.0140 0, L500.08034, L500.32448, L500.33813, L550.53611 ####[facility] KRTTSLLXQC7195 [place], [place] [address]Ez# [phone] WBC (Leukocytes) 6.5 4.5-11.0 K/CU MM Normal 12-13-2016 [facility] (14776) Comment: Order Comment: Boaz: M Performed By: #### L500.0140 0, L500.05266, L500.45011, L500.19071, L550.43275 ####[address] [address]Ho# [phone] mrsa pcr on 2016-11 MRSA PCR NEGATIVE NEGATIVE Normal 12-08-2016 [facility] (24246) Comment: Order Comment: Boaz: M Result Comment: PLEASE NOTE: TESTING DONE BY PCR TECHNOLOGY. Performed By: #### L500.0140 0, L500.43252, L500.82967, L500.80806, L550.73799 ####[facility] LKFVAODZRF1374 [place], [place] [address]Of# [phone] SA PCR NEGATIVE NEGATIVE Normal 12-08-2016 [facility] (87862) Comment: Order Comment: Boaz: M Result Comment: PLEASE NOTE: TESTING DONE BY PCR TECHNOLOGY. Performed By: #### L500.0140 0, L500.16863, L500.42824, L500.16519, L550.33953 ####[facility] [address] [place] [address]Cf# [phone] gfr est on IF AMER Greater than 60 Normal 12-09-[address] [place] [address] (16485) Comment: Order Comment: Boaz: M Performed By: #### L500.0140 0, L500.70142, L500.20977, L500.35434, L550.50684 ####[facility] YQBFWFOQAD2662 [place], [place] [address]He# [phone] IF non-AFR AMER Greater than 60 Normal 12-09-[address] [place] [address] (92284) Comment: Order Comment: Boaz: M Performed By: #### L500.0140 0, L500.54845, L500.59010, L500.88241, L550.44833 ####[facility] ILSPVHXTVU3989 [place], [place] [address]Pm# [phone] cmp on 2016-12-08 Alanine aminotransferase (ALT) 61 13-61 IU/L Normal 12-08-2016 [facility] (00 000) Comment: Order Comment: Boaz: M Performed By: #### L500.0140 0, L500.02576, L500.43952, L500.87925, L550.91898 ####[facility] FGUDNDZIUZ4746 [place], [place] [address]Ji# [phone] Albumin 4.0 3.2-5.0 GM/DL Normal 12-08-2016 [facility] (53161) Comment: Order Comment: Boaz: M Performed By: #### L500.0140 0, L500.95597, L500.71396, L500.81189, L550.08008 ####[facility] LLHUTPBERD2427 [place], [place] [address]Kv# [phone] Albumin/Globulin Ratio 1.0 0.8-2.0 {ratio} Normal [address] [place] [address] (00 000) Comment: Order Comment: Boaz: M Performed By: #### L500.0140 0, L500.56624, L500.86867, L500.72756, L550.47515 ####[facility] YFZVOULQBY8657 [place], [place] [address]Bm# [phone] ALK PHOS 139 45-117 U/L High 12-08-2016 [facility] (55672) Comment: Order Comment: Boaz: M Performed By: #### L500.0140 0, L500.94758, L500.94531, L500.59090, L550.30956 ####[facility] WXCHNCTTOU0940 [place], [place] [address]Qc# [phone] Anion gap 5 5-16 MMOL/L Normal 12-08-2016 [facility] (20972) Comment: Order Comment: Boaz: M Performed By: #### L500.0140 0, L500.15743, L500.69778, L500.95358, L550.43499 ####[facility] NVLZDANSTF[address] [place] [address]Oy# [phone] BILI TOTAL 0.4 0.2-1.0 MG/DL Normal 12-08-2016 [facility] (15048) Comment: Order Comment: Boaz: M Performed By: #### L500.0140 0, L500.57301, L500.14240, L500.30852, L550.11114 ####[facility] VEPMMIZEGW2451 [place], [place] [address]Te# [phone] BUN/Creatinine Ratio 17 15-24 mg/mg Normal 7 [facility] (81961) Comment: Order Comment: Boaz: M Performed By: #### L500.0140 0, L500.85619, L500.95594, L500.25915, L550.18364 ####[facility] OFLHICHLSU5486 [place], [place] [address]Hv# [phone] Calcium 9.4 8.5-10.1 MG/DL Normal 12-08-2016 [facility] (64980) Comment: Order Comment: Boaz: M Performed By: #### L500.0140 0, L500.03398, L500.24417, L500.47366, L550.22808 ####[facility] BCPCWCIGWR7786 [place], [place] [address]Pc# [phone] Chloride 99 98-107 MMOL/L Normal 12-08-2016 [facility] (67247) Comment: Order Comment: Boaz: M Performed By: #### L500.0140 0, L500.27065, L500.71829, L500.07308, L550.26627 ####[facility] NHXEJNYNKY6716 [place], [place] [address]Fu# [phone] CO2 32 21-32 MMOL/L Normal 12-08-2016 [facility] (19385) Comment: Order Comment: Boaz: M Performed By: #### L500.0140 0, L500.70625, L500.46834, L500.93429, L550.17863 ####[facility] ZWKWQCEXWR1414 [place], [place] [address]Ut# [phone] Creatinine 0.784 0.670-1.170 MG/DL Normal 12-08-2016 [facility] (76222) Comment: Order Comment: Boaz: M Result Comment: Patients rec eiving either N-Acetylcysteine (NAC) orMetamizole prior to venipu ncture, may have falsely depressedresults. Performed By: #### L500.0140 0, L500.80225, L500.83908, L500.21647, L550.03381 ####[facility] XFIMJHSPOR8290 [place], [place] [address]Df# [phone] Globulin 4.1 2.2-4.2 GM/DL Normal 12-08-2016 [facility] (96495) Comment: Order Comment: Boaz: M Performed By: #### L500.0140 0, L500.20043, L500.62423, L500.33438, L550.33651 ####[facility] EAGRLNJAWH5113 [place], [place] [address]Yk# [phone] Glucose mass conc 89 70-100 MG/DL Normal 12-08-2016 [facility] (43267) Comment: Order Comment: Boaz: M Result Comment: 21-189-Czhrc l Fasting; 600-795-Tckgusch Fasting; greaterthan 126 on more than one result- Diabetes. ADA guidelines Performed By: #### L500.0140 0, L500.83647, L500.14234, L500.76714, L550.78140 ####[facility] VEBUDWSFBL4069 [place], [place] [address]Vu# [phone] Potassium molar conc 4.5 3.5-5.1 MMOL/L Normal 7 [facility] (20832) Comment: Order Comment: Boaz: M Performed By: #### L500.0140 0, L500.49646, L500.71001, L500.78830, L550.07160 ####[facility] FSGWPDUNHD1270 [place], [place] [address]Rk# [phone] Protein 8.1 6.0-8.5 GM/DL Normal 12-08-2016 [facility] (18926) Comment: Order Comment: Boaz: M Performed By: #### L500.0140 0, L500.46687, L500.14127, L500.69563, L550.24516 ####[facility] ZXVMZLJMID2844 [place], [place] [address]Hp# [phone] SGOT (AST) 42 8-34 U/L High 12-08-2016 [facility] (17360) Comment: Order Comment: Boaz: M Performed By: #### L500.0140 0, L500.07955, L500.44641, L500.12896, L550.53429 ####[facility] SBROATPFCQ0500 [place], [place] [address]Pu# [phone] Sodium 136 136-145 MMOL/L Normal 12-08-2016 [facility] (40182) Comment: Order Comment: Boaz: M Performed By: #### L500.0140 0, L500.32082, L500.91848, L500.92449, L550.90152 ####[facility] IIZWBNDFOW7421 [place], [place] [address]Jt# [phone] Urea nitrogen 13 7-26 MG/DL Normal 12-08-2016 [facility] (81428) Comment: Order Comment: Boaz: M Performed By: #### L500.0140 0, L500.72838, L500.25451, L500.86563, L550.23844 ####[facility] FMRYVLXCEN1562 [place], [place] [address]Wp# [phone] cbc w/diff on 12-08 BASO ABS 0.10 0-0.2 K/CU MM Normal 12-08-2016 [facility] (77102) Comment: Order Comment: Boaz: M Performed By: #### L500.0140 0, L500.03937, L500.20455, L500.27254, L550.41569 ####[facility] WJQTVYIFIL7291 [place], [place] [address]Yj# [phone] Basophils/100 WBC Auto (Bld) 1.1 0-2 % Normal 0 12-08-2016 [facility] (19175) Comment: Order Comment: Boaz: M Performed By: #### L500.0140 0, L500.91569, L500.40598, L500.26085, L550.34445 ####[facility] ISUNWYYOUG4239 [place], [place] [address]Km# [phone] EOS ABS 0.30 0-0.5 K/CU MM Normal 12-08-2016 [facility] (29195) Comment: Order Comment: Boaz: M Performed By: #### L500.0140 0, L500.75156, L500.11964, L500.90649, L550.80041 ####[facility] TCHBXBKXIB3192 [place], [place] [address]Xe# [phone] Eosinophils/100 leukocytes 3.3 0-5 % Normal [facility] (96400) Comment: Order Comment: Boaz: M Performed By: #### L500.0140 0, L500.81575, L500.22997, L500.57845, L550.96344 ####[facility] HXTKJELJIF1887 [place], [place] [address]Zq# [phone] Erythrocyte distribution 13.3 11-14.5 % Normal 12-08 [facility] width Auto Ratio (RBC) [place] (23484) Comment: Order Comment: Boaz: M Performed By: #### L500.0140 0, L500.24010, L500.98594, L500.35046, L550.72974 ####[facility] [id number] [place], [place] [address]Im# [phone] Erythrocytes (RBC) 4.66 4.50-6.00 M/CU MM Normal 12-08-2016 [facility] (00 000) Comment: Order Comment: Boaz: M Performed By: #### L500.0140 0, L500.82968, L500.64968, L500.18477, L550.68751 ####[facility] [id number] [place], [place] [address]Yg# [phone] Erythrocytes (RBC) 0.0 Less than 1 % Normal [address] [place] [address] ([address]) Comment: Order Comment: Boaz: M Performed By: #### L500.0140 0, L500.41909, L500.30068, L500.57705, L550.52509 ####[facility] [id number] [place], [place] [address]Rx# [phone] Hematocrit (HCT) 39.8 41.0-53.0 % Low 12-08-2016 [facility] ([address]) Comment: Order Comment: Boaz: M Performed By: #### L500.0140 0, L500.09422, L500.48133, L500.85088, L550.87499 ####[facility] [id number] [place], [place] [address]He# [phone] Hemoglobin mass conc (Bld) 13.1 13.5-17.5 G/DL Low [facility] (00 000) Comment: Order Comment: Boaz: M Performed By: #### L500.0140 0, L500.25130, L500.74309, L500.81151, L550.36793 ####[facility] [id number] [place], [place] [address]Pk# [phone] IMMATR GRAN ABS 0.00 Less than 2 K/CU MM Normal 12-08-2016 [facility] (00 000) Comment: Order Comment: Boaz: M Performed By: #### L500.0140 0, L500.79156, L500.82187, L500.74716, L550.44730 ####[address] [place], [place] [address]Ot# [phone] IMMATURE GRAN % 0.5 Less than 2 % Normal 12-08-2016 [facility] ([address]) Comment: Order Comment: Boaz: M Performed By: #### L500.0140 0, L500.91317, L500.34599, L500.01816, L550.37709 ####[facility] [id number] [place], [place] [address]Ie# [phone] Lymphocytes 3.90 0.9-4.4 K/CU MM Normal 12-08-2016 [facility] ([address]74) Comment: Order Comment: Boaz: M Performed By: #### L500.0140 0, L500.52670, L500.68384, L500.83977, L550.24247 ####[facility] [id number] [place] [address]Oc# [phone] Lymphocytes/100 leukocytes 52.3 20-40 % High [facility] ([address]) Comment: Order Comment: Boaz: M Performed By: #### L500.0140 0, L500.83554, L500.62157, L500.32232, L550.46574 ####[facility] [id number] [place], [place] [address]Or# [phone] MCHC mass conc (RBC) 32.9 32.0-36.0 GM/DL Normal 7 [facility] (00 000) Comment: Order Comment: Boaz: M Performed By: #### L500.0140 0, L500.05349, L500.53256, L500.51494, L550.23742 ####[facility] [id number] [place], [place] [address]Ow# [phone] MCV 85.4 80.0-99.0 fl Normal 12-08-2016 [facility] ([address]) Comment: Order Comment: Boaz: M Performed By: #### L500.0140 0, L500.65430, L500.02752, L500.35042, L550.57066 ####[facility] [id number] [place], [place] [address]Vo# [phone] MONO ABS 0.70 0.1-1.1 K/CU MM Normal 12-08-2016 [facility] [facility] ([address]381) Comment: Order Comment: Boaz: M Performed By: #### L500.0140 0, L500.51457, L500.92173, L500.47937, L550.25247 ####[facility] VFDSADBFJD8758 [place], [place] [address]Gh# [phone] Monocytes/100 leukocytes 9.6 2-10 % Normal 12-08 [facility] (03920) Comment: Order Comment: Boaz: M Performed By: #### L500.0140 0, L500.94351, L500.95546, L500.34728, L550.88713 ####[facility] YMYJXICETA8343 [place], [place] [address]Tj# [phone] Neutrophils 2.50 2.0-8.3 K/CU MM Normal 12-08-2016 [facility] (87239) Comment: Order Comment: Boaz: M Performed By: #### L500.0140 0, L500.90449, L500.02853, L500.79504, L550.16784 ####[facility] CFEKYNAOAI5976 [place], [place] [address]Xa# [phone] Neutrophils/100 WBC Auto (Bld) 33.2 45-75 % Low 12-08-2016 [facility] (00 000) Comment: Order Comment: Boaz: M Performed By: #### L500.0140 0, L500.11127, L500.24221, L500.94097, L550.65241 ####[facility] EVEEGIVIPQ0833 [place], [place] [address]Ax# [phone] Platelet mean volume (PMV) 8.4 9.4-12.4 fL Low [facility] (75596) Comment: Order Comment: Boaz: M Performed By: #### L500.0140 0, L500.98542, L500.96079, L500.80717, L550.39243 ####[facility] KZFQNCEFCD2485 [place], [place] [address]Ki# [phone] Platelets 309 150-450 K/CU MM Normal 12-08-2016 [facility] [place] (28636) Comment: Order Comment: Boaz: M Performed By: #### L500.0140 0, L500.21215, L500.42416, L500.26654, L550.03637 ####[facility] MUPRXZAHDO3918 [place], [place] [address]Rz# [phone] WBC (Leukocytes) 7.5 4.5-11.0 K/CU MM Normal 12-08-2016 [facility] [place] (33372) Comment: Order Comment: Boaz: M Performed By: #### L500.0140 0, L500.88165, L500.01115, L500.30550, L550.75840 ####[facility] MUGPDRBORC4636 [place], [place] [address]Ju# [phone] gfr est on IF AMER Greater than 60 Normal 12-07-[address] [place] [address] (27818) Comment: Order Comment: Boaz: M Performed By: #### L500.0140 0, L500.43629, L500.07047, L500.59288, L550.95426 ####[facility] MKIFJQLPJJ6971 [place], [place] [address]Ou# [phone] IF non-AFR AMER Greater than 60 Normal 12-07-[address] [place] [address] (27080) Comment: Order Comment: Boaz: M Performed By: #### L500.0140 0, L500.65316, L500.68707, L500.63069, L550.50508 ####[facility] [address] [place] [address]Hq# [phone] cmp on 2016-12-06 Alanine aminotransferase (ALT) 52 13-61 IU/L Normal 12-06-2016 [facility] (00 000) Comment: Order Comment: Boaz: M Performed By: #### L500.0140 0, L500.84097, L500.00877, L500.74210, L550.54107 ####[facility] WLXYINHKID2076 [place], [place] [address]Zf# [phone] Albumin 3.2 3.2-5.0 GM/DL Normal 12-06-2016 [facility] (23177) Comment: Order Comment: Boaz: M Performed By: #### L500.0140 0, L500.82627, L500.51600, L500.15403, L550.35528 ####[facility] CVZAFFEKPU0822 [place], [place] [address]Dx# [phone] Albumin/Globulin Ratio 0.9 0.8-2.0 {ratio} Normal [address] [place] [address] (00 000) Comment: Order Comment: Boaz: M Performed By: #### L500.0140 0, L500.96377, L500.07808, L500.95497, L550.28365 ####[facility] JTHMOKUMUC1258 [place], [place] [address]Cc# [phone] ALK PHOS 127 45-117 U/L High 12-06-2016 [facility] (89458) Comment: Order Comment: Boaz: M Performed By: #### L500.0140 0, L500.32978, L500.09608, L500.88386, L550.36279 ####[facility] VUGXKUXUAH4555 [place], [place] [address]Kr# [phone] Anion gap 9 5-16 MMOL/L Normal 12-06-2016 [facility] (68599) Comment: Order Comment: Boaz: M Performed By: #### L500.0140 0, L500.25706, L500.69302, L500.82483, L550.87470 ####[facility] GQUUCLYOUY2951 [place], [place] [address]Wn# [phone] BILI TOTAL 0.4 0.2-1.0 MG/DL Normal 12-06-2016 [facility] (43180) Comment: Order Comment: Boaz: M Performed By: #### L500.0140 0, L500.60397, L500.25547, L500.89462, L550.75690 ####[facility] MPGNPWPVHA4492 [place], [place] [address]Zy# [phone] BUN/Creatinine Ratio 23 15-24 mg/mg Normal 7 [facility] (11812) Comment: Order Comment: Boaz: M Performed By: #### L500.0140 0, L500.48796, L500.67812, L500.84489, L550.30586 ####[facility] OVTEBZSVKQ0218 [place], [place] [address]Fy# [phone] Calcium 9.2 8.5-10.1 MG/DL Normal 12-06-2016 [facility] (17677) Comment: Order Comment: Boaz: M Performed By: #### L500.0140 0, L500.66561, L500.03653, L500.14915, L550.42889 ####[facility] WZFGCVOBDG1169 [place], [place] [address]Kp# [phone] Chloride 101 98-107 MMOL/L Normal 12-06-2016 [facility] (57132) Comment: Order Comment: Boaz: M Performed By: #### L500.0140 0, L500.25517, L500.92624, L500.21343, L550.77944 ####[facility] WAJXCGKYKI9588 [place], [place] [address]Fo# [phone] CO2 28 21-32 MMOL/L Normal 12-06-2016 [facility] (51306) Comment: Order Comment: Boaz: M Performed By: #### L500.0140 0, L500.84754, L500.20683, L500.84569, L550.41984 ####[facility] BIWNJNFHRV4034 [place], [place] [address]Kt# [phone] Creatinine 0.726 0.670-1.170 MG/DL Normal 12-06-2016 [facility] (25826) Comment: Order Comment: Boaz: M Result Comment: Patients rec eiving either N-Acetylcysteine (NAC) orMetamizole prior to venipu ncture, may have falsely depressedresults. Performed By: #### L500.0140 0, L500.99353, L500.65936, L500.47356, L550.47920 ####[facility] FQGHWWXPTB6174 [place], [place] [address]Xr# [phone] Globulin 3.5 2.2-4.2 GM/DL Normal 12-06-2016 [facility] (24436) Comment: Order Comment: Boaz: M Performed By: #### L500.0140 0, L500.98564, L500.87998, L500.92060, L550.09504 ####[facility] BWKILKFNWO1359 [place], [place] [address]Qr# [phone] Glucose mass conc 85 70-100 MG/DL Normal 12-06-2016 [facility] (85936) Comment: Order Comment: Boaz: M Result Comment: 62-164-Hfmnt l Fasting; 598-094-Jqybqcbp Fasting; greaterthan 126 on more than one result- Diabetes. ADA guidelines Performed By: #### L500.0140 0, L500.74120, L500.73931, L500.27152, L550.77583 ####[facility] MTQWFCGBKP9701 [place], [place] [address]Aj# [phone] Potassium molar conc 4.4 3.5-5.1 MMOL/L Normal 7 [facility] (96755) Comment: Order Comment: Boaz: M Performed By: #### L500.0140 0, L500.03073, L500.32225, L500.23315, L550.37414 ####[facility] GLQATVUZCC7798 [place], [place] [address]Am# [phone] Protein 6.7 6.0-8.5 GM/DL Normal 12-06-2016 [facility] (85814) Comment: Order Comment: Boaz: M Performed By: #### L500.0140 0, L500.45161, L500.44961, L500.17992, L550.85184 ####[facility] OJBLAMHLIP3710 [place], [place] [address]Lj# [phone] SGOT (AST) 37 8-34 U/L High 12-06-2016 [facility] (78805) Comment: Order Comment: Boaz: M Performed By: #### L500.0140 0, L500.09032, L500.81412, L500.01984, L550.49681 ####[facility] NXOHYCNVRI4756 [place], [place] [address]Hw# [phone] Sodium 138 136-145 MMOL/L Normal 12-06-2016 [facility] (24223) Comment: Order Comment: Boaz: M Performed By: #### L500.0140 0, L500.51624, L500.58710, L500.18839, L550.70993 ####[place] [place], [place] [address]Si# [phone] Urea nitrogen 17 7-26 MG/DL Normal 12-06-2016 [facility] (12169) Comment: Order Comment: Boaz: M Performed By: #### L500.0140 0, L500.44398, L500.41367, L500.12912, L550.42309 ####[address] [address]Oo# [phone] cbc w/diff on 12-06 EOS ABS 0.29 0-0.5 K/CU MM Normal 12-06-2016 [facility] (10815) Comment: Order Comment: Boaz: M Performed By: #### L500.0140 0, L500.97857, L500.08723, L500.54489, L550.23425 ####[address] [place], [place] [address]Ln# [phone] Eosinophils/100 leukocytes 4.0 0-5 % Normal [facility] (03729) Comment: Order Comment: Boaz: M Performed By: #### L500.0140 0, L500.25648, L500.00865, L500.26298, L550.25719 ####[facility] [place], [place] [address]Gv# [phone] Lymphocytes 3.96 0.9-4.4 K/CU MM Normal 12-06-2016 [facility] (16616) Comment: Order Comment: Boaz: M Performed By: #### L500.0140 0, L500.53237, L500.03749, L500.65690, L550.44677 ####[address] [address]Ml# [phone] Lymphocytes PRESENT Normal 12-06-2016 [facility] (50044) Comment: Order Comment: Boaz: M Performed By: #### L500.0140 0, L500.60867, L500.29908, L500.12253, L550.53502 ####[address] [address]Rr# [phone] Lymphocytes/100 leukocytes 55.0 20-40 % High [facility] (66698) Comment: Order Comment: Boaz: M Performed By: #### L500.0140 0, L500.91959, L500.69246, L500.34135, L550.34886 ####[address] [address]Yd# [phone] MONO ABS 0.72 0.1-1.1 K/CU MM Normal 12-06-2016 [facility] (33731) Comment: Order Comment: Boaz: M Performed By: #### L500.0140 0, L500.70919, L500.37403, L500.29200, L550.96128 ####[address] [address]Os# [phone] Monocytes/100 leukocytes 10.0 2-10 % Normal 12-06 [facility] (31427) Comment: Order Comment: Boaz: M Performed By: #### L500.0140 0, L500.51422, L500.86794, L500.26398, L550.51427 ####[address] [address]Ly# [phone] Neutrophils 2.23 2.0-8.3 K/CU MM Normal 12-06-2016 [facility] (24402) Comment: Order Comment: Boaz: M Performed By: #### L500.0140 0, L500.78002, L500.58950, L500.32226, L550.56331 ####[address] [address]Ya# [phone] Neutrophils/100 WBC Auto (Bld) 31.0 45-75 % Low 12-06-2016 [facility] (00 000) Comment: Order Comment: Boaz: M Performed By: #### L500.0140 0, L500.52591, L500.39685, L500.10712, L550.94546 ####[facility] ULNGOLJOKZ4762 [place], [place] [address]Tf# [phone] PLT EST ADEQUATE Normal 12-06-2016 [facility] (74538) Comment: Order Comment: Boaz: M Performed By: #### L500.0140 0, L500.36018, L500.76637, L500.43783, L550.79178 ####[facility] GLEVSSUGVD1373 [place], [place] [address]Ob# [phone] POLY 1+ Normal 12-06-2016 [facility] (26702) Comment: Order Comment: Boaz: M Performed By: #### L500.0140 0, L500.97798, L500.24383, L500.77345, L550.99514 ####[facility] YMJQOEAPGY8804 [place], [place] [address]Nl# [phone] Erythrocyte distribution 13.2 11-14.5 % Normal 12-06 [facility] width Auto Ratio (RBC) [place] (15583) Comment: Order Comment: Boaz: M Performed By: #### L500.0140 0, L500.98918, L500.15596, L500.75779, L550.87587 ####[facility] QDZXKTGTVY3205 [place], [place] [address]Pf# [phone] Erythrocytes (RBC) 0.0 Less than 1 % Normal 7 [facility] (37592) Comment: Order Comment: Boaz: M Performed By: #### L500.0140 0, L500.02286, L500.59573, L500.65825, L550.87004 ####[facility] PSPLURXFQJ4050 [place], [place] [address]Wm# [phone] Erythrocytes (RBC) 4.25 4.50-6.00 M/CU MM Low 12-06-2016 [facility] (33597) Comment: Order Comment: Boaz: M Performed By: #### L500.0140 0, L500.72873, L500.32028, L500.29691, L550.40586 ####[facility] AJRNCPVJFO7833 [place], [place] [address]Ue# [phone] Hematocrit (HCT) 36.3 41.0-53.0 % Low 12-06-2016 [facility] (64092) Comment: Order Comment: Boaz: M Performed By: #### L500.0140 0, L500.30959, L500.22305, L500.26623, L550.30801 ####[facility] GTZVGFASHB5930 [place], [place] [address]Jx# [phone] Hemoglobin mass conc (Bld) 12.1 13.5-17.5 G/DL Low [facility] (00 000) Comment: Order Comment: Boaz: M Performed By: #### L500.0140 0, L500.21882, L500.44787, L500.19327, L550.04395 ####[facility] OPMVHFGXQO8696 [place], [place] [address]Nr# [phone] MCHC mass conc (RBC) 33.3 32.0-36.0 GM/DL Normal 7 [facility] (00 000) Comment: Order Comment: Boaz: M Performed By: #### L500.0140 0, L500.86259, L500.48688, L500.52358, L550.60662 ####[facility] YUALGDWUYG8496 [place], [place] [address]Tl# [phone] MCV 85.4 80.0-99.0 fl Normal 12-06-2016 [facility] (16918) Comment: Order Comment: Boaz: M Performed By: #### L500.0140 0, L500.94026, L500.76208, L500.18485, L550.40570 ####[facility] RRERSGHLAX8127 [place], [place] [address]Tc# [phone] Platelet mean volume (PMV) 9.1 9.4-12.4 fL Low [facility] (32429) Comment: Order Comment: Boaz: M Performed By: #### L500.0140 0, L500.65406, L500.60617, L500.13127, L550.10622 ####[facility] BNTMJKEYJD8002 [place], [place] [address]Je# [phone] Platelets 259 150-450 K/CU MM Normal 12-06-2016 [facility] (54274) Comment: Order Comment: Boaz: M Performed By: #### L500.0140 0, L500.99896, L500.89263, L500.84376, L550.74403 ####[facility] RFHJTKAYHE1714 [place], [place] [address]Od# [phone] WBC (Leukocytes) 7.2 4.5-11.0 K/CU MM Normal 12-06-2016 [facility] (37284) Comment: Order Comment: Boaz: M Performed By: #### L500.0140 0, L500.55143, L500.83181, L500.77835, L550.36522 ####[facility] XXDBNYXTMY5317 [place], [place] [address]Gr# [phone] hcv genotyping on 2 HCV GENOTYPE TNP Normal 11-26-2016 [facility] (32216) Comment: Order Comment: Boaz: M Result Comment: Specimen has insufficient hepatitis C virus RNA to obtaingenotyping results. Th is genotyping assay should only beused for known HCV positive patients with H CV RNA levelsabove 1000 IU/mL. Performed By: #### L500.0140 0, L500.68149, L500.00193, L500.57351, L550.12421 ####[facility] GJHFGMJWRA3639 [place], [place] [address]Ll# [phone] NOTE HCV GTYPE: TNP Normal 11-26-2016 [facility] (26580) Comment: Order Comment: Boaz: M Result Comment: This test wa s developed and its performance characteristicsdetermined by [facility]. It has not been cleared or approvedby the U.S. Food and Drug Admin istration.The FDA has determined that such clearance or approval isnot necessary. This test is used for clinical purposes. Itshould not be re garded as investigational or for research.Performed At: [email or web address] [address] [id number] Joaquín Dougherty [id number] Performed By: #### L500.0140 0, L500.97885, L500.21896, L500.71418, L550.18893 ####[facility] XELAESMBTB9721 [place], [place] [address]Ug# [phone] gfr est on IF AMER Greater than 60 Normal 11-27-[address] [place] [address] (98008) Comment: Order Comment: Boaz: M Performed By: #### L500.0140 0, L500.89079, L500.81355, L500.12033, L550.21669 ####[facility] JYVSBEGHQQ7471 [place], [place] [address]Ho# [phone] IF non-AFR AMER Greater than 60 Normal 11-27-[address] [place] [address] (12539) Comment: Order Comment: Boaz: M Performed By: #### L500.0140 0, L500.76678, L500.52666, L500.88417, L550.85921 ####[facility] UGOIBNGCQT6884 [place], [place] [address]Px# [phone] cmp on 2016-11-26 Alanine aminotransferase (ALT) 37 13-61 IU/L Normal 11-26-2016 [facility] (00 000) Comment: Order Comment: Boaz: M Performed By: #### L500.0140 0, L500.30785, L500.34111, L500.76099, L550.64070 ####[facility] VBKTPFHLDT5413 [place], [place] [address]Uo# [phone] Albumin 2.9 3.2-5.0 GM/DL Low 11-26-2016 [facility] (73668) Comment: Order Comment: Boaz: M Performed By: #### L500.0140 0, L500.00933, L500.31465, L500.61119, L550.86373 ####[facility] EXELELJCLK2774 [place], [place] [address]Xt# [phone] Albumin/Globulin Ratio 0.9 0.8-2.0 {ratio} Normal 017 [facility] (00 000) Comment: Order Comment: Boaz: M Performed By: #### L500.0140 0, L500.43614, L500.08103, L500.32397, L550.33398 ####[facility] IFTRMDADTC6291 [place], [place] [address]Vx# [phone] ALK PHOS 127 45-117 U/L High 11-26-2016 [facility] (92078) Comment: Order Comment: Boaz: M Performed By: #### L500.0140 0, L500.22838, L500.80538, L500.15597, L550.04956 ####[facility] TVBOBVXHPY1658 [place], [place] [address]Ih# [phone] Anion gap 7 5-16 MMOL/L Normal 11-26-2016 [facility] (37166) Comment: Order Comment: Boaz: M Performed By: #### L500.0140 0, L500.81853, L500.19600, L500.67176, L550.11848 ####[facility] DWZDEQSFBM0350 [place], [place] [address]Fo# [phone] BILI TOTAL 0.3 0.2-1.0 MG/DL Normal 11-26-2016 [facility] (70342) Comment: Order Comment: Boaz: M Performed By: #### L500.0140 0, L500.99927, L500.59069, L500.40297, L550.27367 ####[facility] COKYXWRTQV9499 [place], [place] [address]Yy# [phone] BUN/Creatinine Ratio 12 15-24 mg/mg Low 7 [facility] (74722) Comment: Order Comment: Boaz: M Performed By: #### L500.0140 0, L500.02116, L500.13147, L500.22093, L550.41458 ####[facility] PJQICVMBGY2525 [place], [place] [address]Jy# [phone] Calcium 8.5 8.5-10.1 MG/DL Normal 11-26-2016 [facility] (62217) Comment: Order Comment: Boaz: M Performed By: #### L500.0140 0, L500.98259, L500.83448, L500.51345, L550.93576 ####[facility] AOGCLZUQGV0123 [place], [place] [address]Yz# [phone] Chloride 105 98-107 MMOL/L Normal 11-26-2016 [facility] (16630) Comment: Order Comment: Boaz: M Performed By: #### L500.0140 0, L500.00657, L500.31076, L500.71873, L550.98936 ####[facility] IVDXMYUSIZ9161 [place], [place] [address]Vq# [phone] CO2 28 21-32 MMOL/L Normal 11-26-2016 [facility] (98247) Comment: Order Comment: Boaz: M Performed By: #### L500.0140 0, L500.47638, L500.31027, L500.72782, L550.55776 ####[facility] PSZQUZSNOQ3222 [place], [place] [address]Jx# [phone] Creatinine 0.646 0.670-1.170 MG/DL Low 11-26-2016 [facility] (87985) Comment: Order Comment: Boaz: M Result Comment: Patients rec eiving either N-Acetylcysteine (NAC) orMetamizole prior to venipu ncture, may have falsely depressedresults. Performed By: #### L500.0140 0, L500.60405, L500.24124, L500.78489, L550.20316 ####[facility] RIRPCJBENF7769 [place], [place] [address]Ur# [phone] Globulin 3.1 2.2-4.2 GM/DL Normal 11-26-2016 [facility] (72282) Comment: Order Comment: Boaz: M Performed By: #### L500.0140 0, L500.68991, L500.58078, L500.42620, L550.69398 ####[facility] OFGEOKXDEW5378 [place], [place] [address]Li# [phone] Glucose mass conc 91 70-100 MG/DL Normal 11-26-2016 [facility] (94084) Comment: Order Comment: Boaz: M Result Comment: 28-682-Ylkvy l Fasting; 500-352-Zffkjsbw Fasting; greaterthan 126 on more than one result- Diabetes. ADA guidelines Performed By: #### L500.0140 0, L500.02351, L500.57229, L500.36473, L550.70195 ####[facility] LIXWVAUFTU3186 [place], [place] [address]Qq# [phone] Potassium molar conc 4.0 3.5-5.1 MMOL/L Normal 7 [facility] (92294) Comment: Order Comment: Boaz: M Performed By: #### L500.0140 0, L500.06654, L500.48241, L500.28365, L550.37890 ####[facility] IHJRNGIYIJ7904 [place], [place] [address]Ig# [phone] Protein 6.0 6.0-8.5 GM/DL Normal 11-26-2016 [facility] (44112) Comment: Order Comment: Boaz: M Performed By: #### L500.0140 0, L500.72949, L500.11918, L500.70143, L550.69341 ####[facility] RKNWEBDVGD5031 [place], [place] [address]Gy# [phone] SGOT (AST) 27 8-34 U/L Normal 11-26-2016 [facility] (72961) Comment: Order Comment: Boaz: M Performed By: #### L500.0140 0, L500.01680, L500.52289, L500.72368, L550.69357 ####[facility] FLRCUSWVIV1195 [place], [place] [address]Hm# [phone] Sodium 140 136-145 MMOL/L Normal 11-26-2016 [facility] (33099) Comment: Order Comment: Boaz: M Performed By: #### L500.0140 0, L500.38908, L500.45321, L500.39708, L550.56856 ####[facility] LAWYQDDNUT1100 [place], [place] [address]Fl# [phone] Urea nitrogen 8 7-26 MG/DL Normal 11-26-2016 [facility] (07443) Comment: Order Comment: Boaz: M Performed By: #### L500.0140 0, L500.73447, L500.23533, L500.74066, L550.50492 ####[facility] [id number] [place], [place] [address]Hs# [phone] cbc w/diff on 11-26 BASO ABS 0.10 0-0.2 K/CU MM Normal 11-26-2016 [facility] (80195) Comment: Order Comment: Boaz: M Performed By: #### L500.0140 0, L500.74250, L500.32104, L500.90307, L550.87536 ####[facility] [id number] [place], [place] [address]Lz# [phone] Basophils/100 WBC Auto (Bld) 1.0 0-2 % Normal 0 11-26-2016 [facility] ([address]) Comment: Order Comment: Boaz: M Performed By: #### L500.0140 0, L500.60940, L500.46343, L500.98489, L550.36687 ####[address] [address]Jz# [phone] EOS ABS 0.50 0-0.5 K/CU MM Normal 11-26-2016 [facility] ([address]3410) Comment: Order Comment: Boaz: M Performed By: #### L500.0140 0, L500.88664, L500.41862, L500.88281, L550.87425 ####[address] [address]Mg# [phone] Eosinophils/100 leukocytes 11.0 0-5 % High [facility] (86020) Comment: Order Comment: Boaz: M Performed By: #### L500.0140 0, L500.80596, L500.40096, L500.88890, L550.14280 ####[address] [address]Vw# [phone] IMMATR GRAN ABS 0.00 Less than 2 K/CU MM Normal 11-26-2016 [facility] (00 000) Comment: Order Comment: Boaz: M Performed By: #### L500.0140 0, L500.84502, L500.95556, L500.54453, L550.58365 ####[address] [address]Rr# [phone] IMMATURE GRAN % 0.8 Less than 2 % Normal 11-26-2016 [facility] (41529) Comment: Order Comment: Boaz: M Performed By: #### L500.0140 0, L500.76734, L500.74931, L500.04543, L550.83767 ####[facility] [place], [place] [address]Oi# [phone] Lymphocytes PRESENT Normal 11-26-2016 [facility] ([address]140) Comment: Order Comment: Boaz: M Performed By: #### L500.0140 0, L500.28509, L500.11397, L500.27692, L550.56873 ####[address] [address]Qu# [phone] Lymphocytes 2.30 0.9-4.4 K/CU MM Normal 11-26-2016 [facility] (50618) Comment: Order Comment: Boaz: M Performed By: #### L500.0140 0, L500.71098, L500.73168, L500.66828, L550.59229 ####[address] [address]Yl# [phone] Lymphocytes/100 leukocytes 47.9 20-40 % High [facility] (33456) Comment: Order Comment: Boaz: M Performed By: #### L500.0140 0, L500.22723, L500.74464, L500.42955, L550.23974 ####[address] [place], [place] [address]Yb# [phone] MONO ABS 0.30 0.1-1.1 K/CU MM Normal 11-26-2016 [facility] ([address]2799) Comment: Order Comment: Boaz: M Performed By: #### L500.0140 0, L500.59670, L500.46479, L500.65601, L550.70476 ####[address] [place], [place] [address]Mn# [phone] Monocytes/100 leukocytes 7.0 2-10 % Normal 11-26 [facility] ([address]351) Comment: Order Comment: Boaz: M Performed By: #### L500.0140 0, L500.79059, L500.38788, L500.80186, L550.26445 ####[facility] LGEJAOHSVE8172 [place], [place] [address]Ab# [phone] Neutrophils 1.60 2.0-8.3 K/CU MM Low 11-26-2016 [facility] (56949) Comment: Order Comment: Boaz: M Performed By: #### L500.0140 0, L500.52157, L500.90167, L500.03510, L550.33045 ####[facility] TXCWDXIOYG9665 [place], [place] [address]Nk# [phone] Neutrophils/100 WBC Auto (Bld) 32.3 45-75 % Low 11-26-2016 [facility] (00 000) Comment: Order Comment: Boaz: M Performed By: #### L500.0140 0, L500.42759, L500.51027, L500.84566, L550.09623 ####[facility] OWPSVMYTSL7127 [place], [place] [address]Xc# [phone] PLT EST SLT DECREASED Normal 11-26-2016 [facility] (07238) Comment: Order Comment: Boaz: M Performed By: #### L500.0140 0, L500.25439, L500.52382, L500.39349, L550.24441 ####[facility] MMHLUBLGJC5987 [place], [place] [address]Jv# [phone] POLY 1+ Normal 11-26-2016 [facility] (17023) Comment: Order Comment: Boaz: M Performed By: #### L500.0140 0, L500.33705, L500.97079, L500.84588, L550.78786 ####[facility] TGISHZQOKK0299 [place], [place] [address]Oq# [phone] Erythrocyte distribution 12.9 11-14.5 % Normal 11-26 [facility] width Auto Ratio (RBC) [place] (90441) Comment: Order Comment: Boaz: M Performed By: #### L500.0140 0, L500.51977, L500.31949, L500.30237, L550.26785 ####[facility] HYFNBVKNWY3409 [place], [place] [address]Zv# [phone] Erythrocytes (RBC) 3.81 4.50-6.00 M/CU MM Low 11-26-2016 [facility] (54798) Comment: Order Comment: Boaz: M Performed By: #### L500.0140 0, L500.44831, L500.99325, L500.93662, L550.71770 ####[facility] MNUXYVBRUP6797 [place], [place] [address]Hq# [phone] Erythrocytes (RBC) 0.0 Less than 1 % Normal 7 [facility] (83894) Comment: Order Comment: Boaz: M Performed By: #### L500.0140 0, L500.01067, L500.28507, L500.47523, L550.24834 ####[facility] HFFHYFEZYX1518 [place], [place] [address]Sx# [phone] Hematocrit (HCT) 31.9 41.0-53.0 % Low 11-26-2016 [facility] (82934) Comment: Order Comment: Boaz: M Performed By: #### L500.0140 0, L500.40355, L500.05001, L500.34499, L550.21577 ####[facility] QYOHNLZDQG3902 [place], [place] [address]Zj# [phone] Hemoglobin mass conc (Bld) 11.0 13.5-17.5 G/DL Low [facility] (00 000) Comment: Order Comment: Boaz: M Performed By: #### L500.0140 0, L500.13136, L500.05421, L500.65359, L550.14783 ####[facility] STKGHWTIMQ3641 [place], [place] [address]Ev# [phone] MCHC mass conc (RBC) 34.5 32.0-36.0 GM/DL Normal 7 [facility] (00 000) Comment: Order Comment: Boaz: M Performed By: #### L500.0140 0, L500.51966, L500.28677, L500.97157, L550.58282 ####[facility] UVFNLNQKAU3188 [place], [place] [address]Fp# [phone] MCV 83.7 80.0-99.0 fl Normal 11-26-2016 [facility] (62285) Comment: Order Comment: Boaz: M Performed By: #### L500.0140 0, L500.68202, L500.31286, L500.95280, L550.84821 ####[address] [place], [place] [address]Ox# [phone] Platelet mean volume (PMV) 9.3 9.4-12.4 fL Low [facility] (67275) Comment: Order Comment: Boaz: M Performed By: #### L500.0140 0, L500.62160, L500.28723, L500.44510, L550.36108 ####[facility] UPYOSTLAVK2287 [place], [place] [address]Jm# [phone] Platelets 148 150-450 K/CU MM Low 11-26-2016 [facility] (15918) Comment: Order Comment: Boaz: M Performed By: #### L500.0140 0, L500.39535, L500.62581, L500.45185, L550.35578 ####[facility] LTWOPLUSEE1849 [place], [place] [address]Jl# [phone] WBC (Leukocytes) 4.8 4.5-11.0 K/CU MM Normal 11-26-2016 [facility] (78352) Comment: Order Comment: Boaz: M Performed By: #### L500.0140 0, L500.66236, L500.88875, L500.40206, L550.63640 ####[facility] HGSFZZOMFH7280 [place], [place] [address]Zz# [phone] gfr est on IF AMER Greater than 60 Normal 11-25-[address] [place] [address] ([address]) Comment: Order Comment: Boaz: M Performed By: #### L500.0140 0, L500.01384, L500.42900, L500.07672, L550.52070 ####[facility] VDOTDZSVYY1148 [place], [place] [address]Ck# [phone] IF non-AFR AMER Greater than 60 Normal 11-25-[address] [place] [address] (81749) Comment: Order Comment: Boaz: M Performed By: #### L500.0140 0, L500.77656, L500.24787, L500.50769, L550.64300 ####[facility] VPCZEZBJVI1737 [place], [place] [address]Bv# [phone] cmp on 2016-11-24 Alanine aminotransferase (ALT) 36 13-61 IU/L Normal 11-24-2016 [facility] (00 000) Comment: Order Comment: Boaz: M Performed By: #### L500.0140 0, L500.59835, L500.19009, L500.46937, L550.19587 ####[facility] TBSLPLAPWA8307 [place], [place] [address]Jv# [phone] Albumin 3.1 3.2-5.0 GM/DL Low 11-24-2016 [facility] (19708) Comment: Order Comment: Boaz: M Performed By: #### L500.0140 0, L500.23904, L500.71002, L500.19911, L550.08208 ####[facility] EOXZYCVLWM5595 [place], [place] [address]Qg# [phone] Albumin/Globulin Ratio 1.0 0.8-2.0 {ratio} Normal [address] [place] [address] (00 000) Comment: Order Comment: Boaz: M Performed By: #### L500.0140 0, L500.12410, L500.56279, L500.12198, L550.19902 ####[facility] KKEOAAAWCZ4334 [place], [place] [address]Me# [phone] ALK PHOS 136 45-117 U/L High 11-24-2016 [facility] (78854) Comment: Order Comment: Boaz: M Performed By: #### L500.0140 0, L500.96459, L500.01874, L500.17858, L550.68395 ####[facility] BIDKVKPUEK3037 [place], [place] [address]Bm# [phone] Anion gap 6 5-16 MMOL/L Normal 11-24-2016 [facility] (23076) Comment: Order Comment: Boaz: M Performed By: #### L500.0140 0, L500.34754, L500.59089, L500.86250, L550.39605 ####[facility] AIETHCFBJD7730 [place], [place] [address]Pa# [phone] BILI TOTAL 0.4 0.2-1.0 MG/DL Normal 11-24-2016 [facility] (56410) Comment: Order Comment: Boaz: M Performed By: #### L500.0140 0, L500.29818, L500.89160, L500.23842, L550.26181 ####[facility] WGBWQMDUPB8641 [place], [place] [address]Dh# [phone] BUN/Creatinine Ratio 12 15-24 mg/mg Low 7 [facility] (95872) Comment: Order Comment: Boaz: M Performed By: #### L500.0140 0, L500.47371, L500.51805, L500.48397, L550.45907 ####[facility] CEPCNXBEDG2069 [place], [place] [address]Qw# [phone] Calcium 8.6 8.5-10.1 MG/DL Normal 11-24-2016 [facility] (24327) Comment: Order Comment: Boaz: M Performed By: #### L500.0140 0, L500.74111, L500.89005, L500.18149, L550.32655 ####[facility] XMYOYDAPDD0574 [place], [place] [address]Ow# [phone] Chloride 103 98-107 MMOL/L Normal 11-24-2016 [facility] (65288) Comment: Order Comment: Boaz: M Performed By: #### L500.0140 0, L500.53666, L500.07081, L500.53846, L550.43783 ####[facility] ARSXRWIUMZ6008 [place], [place] [address]Pu# [phone] CO2 30 21-32 MMOL/L Normal 11-24-2016 [facility] (11460) Comment: Order Comment: Boaz: M Performed By: #### L500.0140 0, L500.68805, L500.13737, L500.80339, L550.85535 ####[facility] LJXEMMDVIR9761 [place], [place] [address]Nv# [phone] Creatinine 0.992 0.670-1.170 MG/DL Normal 11-24-2016 [facility] (00631) Comment: Order Comment: Boaz: M Result Comment: Patients rec eiving either N-Acetylcysteine (NAC) orMetamizole prior to venipu ncture, may have falsely depressedresults. Performed By: #### L500.0140 0, L500.93273, L500.45627, L500.23670, L550.98376 ####[facility] VSKLJLMSAK6366 [place], [place] [address]Sn# [phone] Globulin 3.2 2.2-4.2 GM/DL Normal 11-24-2016 [facility] (61473) Comment: Order Comment: Boaz: M Performed By: #### L500.0140 0, L500.14436, L500.25264, L500.55105, L550.49012 ####[facility] INZTEFDJWT5229 [place], [place] [address]Bz# [phone] Glucose mass conc 99 70-100 MG/DL Normal 11-24-2016 [facility] (01231) Comment: Order Comment: Boaz: M Result Comment: 56-040-Irhbq l Fasting; 482-136-Rowkhmha Fasting; greaterthan 126 on more than one result- Diabetes. ADA guidelines Performed By: #### L500.0140 0, L500.30640, L500.93044, L500.77289, L550.70925 ####[facility] ZOJBXESIQR2009 [place], [place] [address]Sg# [phone] Potassium molar conc 4.0 3.5-5.1 MMOL/L Normal 7 [facility] (12495) Comment: Order Comment: Boaz: M Performed By: #### L500.0140 0, L500.36216, L500.02591, L500.46639, L550.98440 ####[facility] YMAYZDFKRV7842 [place], [place] [address]En# [phone] Protein 6.3 6.0-8.5 GM/DL Normal 11-24-2016 [facility] (09572) Comment: Order Comment: Boaz: M Performed By: #### L500.0140 0, L500.93476, L500.66274, L500.37945, L550.15667 ####[facility] RROGQIGZYZ2401 [place], [place] [address]Ha# [phone] SGOT (AST) 27 8-34 U/L Normal 11-24-2016 [facility] (11751) Comment: Order Comment: Boaz: M Performed By: #### L500.0140 0, L500.78909, L500.35690, L500.19660, L550.02076 ####[facility] CQVGCCMIOL2784 [place], [place] [address]Zi# [phone] Sodium 139 136-145 MMOL/L Normal 11-24-2016 [facility] (49897) Comment: Order Comment: Boaz: M Performed By: #### L500.0140 0, L500.55244, L500.86589, L500.38978, L550.63371 ####[facility] GXOTNJWGBX4183 [place], [place] [address]Hs# [phone] Urea nitrogen 12 7-26 MG/DL Normal 11-24-2016 [facility] (63979) Comment: Order Comment: Boaz: M Performed By: #### L500.0140 0, L500.57515, L500.93104, L500.32814, L550.82607 ####[address] [place], [place] [address]Bm# [phone] cbc w/diff on 11-24 BAND % 20.0 0-7 % High 11-24-2016 [facility] (85368) Comment: Order Comment: Boaz: M Performed By: #### L500.0140 0, L500.31743, L500.93577, L500.69496, L550.20235 ####[facility] [place], [place] [address]Qe# [phone] BAND ABS 0.90 K/CU MM Normal 11-24-2016 [facility] (47654) Comment: Order Comment: Boaz: M Performed By: #### L500.0140 0, L500.60410, L500.36652, L500.22328, L550.45867 ####[facility] AOOHZNQMDM7687 [place], [place] [address]Hh# [phone] EOS ABS 0.50 0-0.5 K/CU MM Normal 11-24-2016 [facility] (95835) Comment: Order Comment: Boaz: M Performed By: #### L500.0140 0, L500.94870, L500.07873, L500.58663, L550.57700 ####[facility] DSKPUMSPLU6081 [place], [place] [address]Dc# [phone] Eosinophils/100 leukocytes 11.0 0-5 % High [facility] (83153) Comment: Order Comment: Boaz: M Performed By: #### L500.0140 0, L500.26647, L500.39018, L500.89333, L550.37907 ####[facility] [address] [place] [address]Tn# [phone] Lymphocytes PRESENT Normal 11-24-2016 [facility] (40510) Comment: Order Comment: Boaz: M Performed By: #### L500.0140 0, L500.49333, L500.02842, L500.19405, L550.16099 ####[address] [address]Sa# [phone] Lymphocytes 1.98 0.9-4.4 K/CU MM Normal 11-24-2016 [facility] (47871) Comment: Order Comment: Boaz: M Performed By: #### L500.0140 0, L500.64809, L500.58446, L500.32707, L550.05712 ####[address] [place], [place] [address]Uf# [phone] Lymphocytes/100 leukocytes 44.0 20-40 % High [facility] (83654) Comment: Order Comment: Boaz: M Performed By: #### L500.0140 0, L500.76479, L500.61211, L500.50258, L550.92294 ####[address] [address]Mh# [phone] MONO ABS 0.27 0.1-1.1 K/CU MM Normal 11-24-2016 [facility] (68861) Comment: Order Comment: Boaz: M Performed By: #### L500.0140 0, L500.24926, L500.46058, L500.66062, L550.44222 ####[facility] SDSKFVVPFB3956 [place], [place] [address]Xv# [phone] Monocytes/100 leukocytes 6.0 2-10 % Normal 11-24 [facility] (03173) Comment: Order Comment: Boaz: M Performed By: #### L500.0140 0, L500.30154, L500.65575, L500.40964, L550.03188 ####[address] [place], [place] [address]Ys# [phone] Neutrophils 0.86 2.0-8.3 K/CU MM Low 11-24-2016 [facility] (18338) Comment: Order Comment: Boaz: M Performed By: #### L500.0140 0, L500.73271, L500.91775, L500.93276, L550.13974 ####[address] [place], [place] [address]Sc# [phone] Neutrophils/100 WBC Auto (Bld) 19.0 45-75 % Low 11-24-2016 [facility] (00 000) Comment: Order Comment: Boaz: M Performed By: #### L500.0140 0, L500.89310, L500.62138, L500.15463, L550.14123 ####[facility] EMOURJDNHG2087 [place], [place] [address]Eh# [phone] PLT EST ADEQUATE Normal 11-24-2016 [facility] (20629) Comment: Order Comment: Boaz: M Performed By: #### L500.0140 0, L500.07160, L500.71554, L500.19561, L550.56828 ####[facility] ONDFNTWUDJ3256 [place], [place] [address]Mx# [phone] POLY 1+ Normal 11-24-2016 [facility] (57726) Comment: Order Comment: Boaz: M Performed By: #### L500.0140 0, L500.41620, L500.24898, L500.40572, L550.85517 ####[facility] SAQFLBQVNS1941 [place], [place] [address]Kh# [phone] Erythrocyte distribution 13.1 11-14.5 % Normal 11-24 [facility] width Auto Ratio (RBC) [place] (26889) Comment: Order Comment: Boaz: M Performed By: #### L500.0140 0, L500.00998, L500.50977, L500.35329, L550.72591 ####[facility] MHAWQUCQFH9692 [place], [place] [address]Kp# [phone] Erythrocytes (RBC) 3.85 4.50-6.00 M/CU MM Low 11-24-2016 [facility] (22244) Comment: Order Comment: Boaz: M Performed By: #### L500.0140 0, L500.33067, L500.68015, L500.62126, L550.48333 ####[facility] WRDNQNUDVI3332 [place], [place] [address]Ki# [phone] Erythrocytes (RBC) 0.0 Less than 1 % Normal [address] [place] [address] (586[address]) Comment: Order Comment: Boaz: M Performed By: #### L500.0140 0, L500.68000, L500.54470, L500.41051, L550.89040 ####[facility] URTDEJVWTA3735 [place], [place] [address]Of# [phone] Hematocrit (HCT) 33.0 41.0-53.0 % Low 11-24-2016 [facility] (45177) Comment: Order Comment: Boaz: M Performed By: #### L500.0140 0, L500.84823, L500.35058, L500.61085, L550.00823 ####[facility] VRVQFTCSJA1315 [place], [place] [address]Fb# [phone] Hemoglobin mass conc (Bld) 11.1 13.5-17.5 G/DL Low [facility] (00 000) Comment: Order Comment: Boaz: M Performed By: #### L500.0140 0, L500.86905, L500.61897, L500.69740, L550.04203 ####[facility] OVMXGUZPFS8272 [place], [place] [address]Lp# [phone] MCHC mass conc (RBC) 33.6 32.0-36.0 GM/DL Normal 201 7 [facility] ( 000) Comment: Order Comment: Boaz: M Performed By: #### L500.0140 0, L500.40786, L500.13730, L500.57426, L550.28278 ####[facility] OFQTMBBMRK0030 [place], [place] [address]Ac# [phone] MCV 85.7 80.0-99.0 fl Normal 11-24-2016 [facility] (78560) Comment: Order Comment: Boaz: M Performed By: #### L500.0140 0, L500.66679, L500.63266, L500.41779, L550.33146 ####[facility] BVTEELMBVA1273 [place], [place] [address]Pn# [phone] Platelet mean volume (PMV) 9.4 9.4-12.4 fL Normal [facility] ( 000) Comment: Order Comment: Boaz: M Performed By: #### L500.0140 0, L500.93338, L500.93417, L500.24672, L550.84474 ####[facility] OJXWQDZCVK9322 [place], [place] [address]Bp# [phone] Platelets 163 150-450 K/CU MM Normal 11-24-2016 [facility] (25915) Comment: Order Comment: Boaz: M Performed By: #### L500.0140 0, L500.91446, L500.53668, L500.30698, L550.14163 ####[facility] RYBOFBLQKV9241 [place], [place] [address]Jg# [phone] WBC (Leukocytes) 4.5 4.5-11.0 K/CU MM Normal 11-24-2016 [facility] [place] (16999) Comment: Order Comment: Boaz: M Performed By: #### L500.0140 0, L500.59405, L500.87777, L500.71369, L550.17042 ####[facility] ZOOGCXNZWQ9808 [place], [place] [address]Dh# [phone] wound culture on 13-11-27 WOUND CULTURE GRAM STAIN RARE WBC'S NO ORGANISMS N ormal 11-23-2016 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 RJTNDWLILJ2505 [place], [place] [address]Ho# [phone] microbiology: (p) acid fast bact cult/sm on 2016-11-23 AFBCS . 11-23-11-23-2 017 [facility] (50237) gfr est on IF AMER Greater than 60 Normal 11-23-[address] [place] [address] (07978) Comment: Order Comment: Boaz: M Performed By: #### L500.0140 0, L500.61340, L500.18199, L500.11867, L550.76746 ####[facility] OSETHZXIAF1093 [place], [place] [address]Nt# [phone] IF non-AFR AMER Greater than 60 Normal 11-23-[address] [place] [address] (08728) Comment: Order Comment: Boaz: M Performed By: #### L500.0140 0, L500.20347, L500.07314, L500.12718, L550.88046 ####[facility] SHLILEFPJP2913 [place], [place] [address]In# [phone] cmp on 2016-11-22 Alanine aminotransferase (ALT) 37 13-61 IU/L Normal 11-22-2016 [facility] (00 000) Comment: Order Comment: Boaz: M Performed By: #### L500.0140 0, L500.41957, L500.77349, L500.47016, L550.80318 ####[facility] VZYSMVZFBI6176 [place], [place] [address]Gc# [phone] Albumin 3.4 3.2-5.0 GM/DL Normal 11-22-2016 [facility] (80095) Comment: Order Comment: Boaz: M Performed By: #### L500.0140 0, L500.00864, L500.41072, L500.01955, L550.74043 ####[facility] IVEXZQGGCS5953 [place], [place] [address]Sk# [phone] Albumin/Globulin Ratio 1.0 0.8-2.0 {ratio} Normal [address] [place] [address] (00 000) Comment: Order Comment: Boaz: M Performed By: #### L500.0140 0, L500.31028, L500.83608, L500.21506, L550.89309 ####[facility] RIWLBQSZJO2755 [place], [place] [address]Jm# [phone] ALK PHOS 148 45-117 U/L High 11-22-2016 [facility] (03883) Comment: Order Comment: Boaz: M Performed By: #### L500.0140 0, L500.07902, L500.25436, L500.60092, L550.38438 ####[facility] KEKIJXXJOS5339 [place], [place] [address]Vj# [phone] Anion gap 5 5-16 MMOL/L Normal 11-22-2016 [facility] (75899) Comment: Order Comment: Boaz: M Performed By: #### L500.0140 0, L500.24055, L500.01389, L500.37664, L550.18862 ####[facility] BSEYHGKKMJ2352 [place], [place] [address]Vh# [phone] BILI TOTAL 0.4 0.2-1.0 MG/DL Normal 11-22-2016 [facility] (81785) Comment: Order Comment: Boaz: M Performed By: #### L500.0140 0, L500.95379, L500.03166, L500.92811, L550.99720 ####[facility] EOCOZXTBOJ7381 [place], [place] [address]Sn# [phone] BUN/Creatinine Ratio 19 15-24 mg/mg Normal 7 [facility] (44658) Comment: Order Comment: Boaz: M Performed By: #### L500.0140 0, L500.89369, L500.48298, L500.01256, L550.49369 ####[facility] SKYGHTPVPD8344 [place], [place] [address]Aj# [phone] Calcium 9.1 8.5-10.1 MG/DL Normal 11-22-2016 [facility] (77967) Comment: Order Comment: Boaz: M Performed By: #### L500.0140 0, L500.86005, L500.16546, L500.25701, L550.47847 ####[facility] WWGOAVRROL4540 [place], [place] [address]Py# [phone] Chloride 101 98-107 MMOL/L Normal 11-22-2016 [facility] (99127) Comment: Order Comment: Boaz: M Performed By: #### L500.0140 0, L500.66164, L500.67583, L500.65946, L550.19785 ####[facility] [id number] [place], [place] [address]Rr# [phone] CO2 31 21-32 MMOL/L Normal 11-22-2016 [facility] ([id number]) Comment: Order Comment: Boaz: M Performed By: #### L500.0140 0, L500.88675, L500.65339, L500.75855, L550.58703 ####[facility] [id number] [place], [place] [address]Rr# [phone] Creatinine 0.738 0.670-1.170 MG/DL Normal 11-22-2016 [facility] ([id number]) Comment: Order Comment: Boaz: M Result Comment: Patients rec eiving either N-Acetylcysteine (NAC) orMetamizole prior to venipu ncture, may have falsely depressedresults. Performed By: #### L500.0140 0, L500.81618, L500.00658, L500.26787, L550.96346 ####[facility] [id number] [place], [place] [address]Aj# [phone] Globulin 3.3 2.2-4.2 GM/DL Normal 11-22-2016 [facility] ([id number]) Comment: Order Comment: Boaz: M Performed By: #### L500.0140 0, L500.42749, L500.64996, L500.65613, L550.58544 ####[facility] [id number] [place], [place] [address]We# [phone] Glucose mass conc 97 70-100 MG/DL Normal 11-22-2016 [facility] (19763) Comment: Order Comment: Boaz: M Result Comment: 46-362-Zxkvb l Fasting; 189-240-Jyriqalj Fasting; greaterthan 126 on more than one result- Diabetes. ADA guidelines Performed By: #### L500.0140 0, L500.64700, L500.81686, L500.03006, L550.02721 ####[facility] [id number] [place], [place] [address]Ui# [phone] Potassium molar conc 4.1 3.5-5.1 MMOL/L Normal 7 [facility] (78591) Comment: Order Comment: Boaz: M Performed By: #### L500.0140 0, L500.97191, L500.73590, L500.57059, L550.66034 ####[facility] [id number] [place], [place] [address]Bn# [phone] Protein 6.7 6.0-8.5 GM/DL Normal 11-22-2016 [facility] ([id number]) Comment: Order Comment: Boaz: M Performed By: #### L500.0140 0, L500.96587, L500.04820, L500.15776, L550.82287 ####[facility] [id number] [place], [place] [address]Uc# [phone] SGOT (AST) 30 8-34 U/L Normal 11-22-2016 [facility] ([id number]) Comment: Order Comment: Boaz: M Performed By: #### L500.0140 0, L500.33588, L500.17119, L500.90022, L550.34875 ####[facility] [id number] [place], [place] [address]Xr# [phone] Sodium 136 136-145 MMOL/L Normal 11-22-2016 [facility] ([id number]) Comment: Order Comment: Boaz: M Performed By: #### L500.0140 0, L500.38375, L500.31304, L500.68466, L550.48673 ####[address] [place], [place] [address]Fg# [phone] Urea nitrogen 14 7-26 MG/DL Normal 11-22-2016 [facility] (00849) Comment: Order Comment: Boaz: M Performed By: #### L500.0140 0, L500.16540, L500.80620, L500.77600, L550.84801 ####[address] [address]Is# [phone] cbc w/diff on 11-22 BASO ABS 0.10 0-0.2 K/CU MM Normal 11-22-2016 [facility] (08976) Comment: Order Comment: Boaz: M Performed By: #### L500.0140 0, L500.74597, L500.66799, L500.82659, L550.43100 ####[address] [address]Gp# [phone] Basophils/100 WBC Auto (Bld) 1.5 0-2 % Normal 0 11-22-2016 [facility] (43240) Comment: Order Comment: Boaz: M Performed By: #### L500.0140 0, L500.29893, L500.67159, L500.04948, L550.91375 ####[facility] SDJZAGPFSV7348 [place], [place] [address]Uz# [phone] EOS ABS 0.50 0-0.5 K/CU MM Normal 11-22-2016 [facility] (03262) Comment: Order Comment: Boaz: M Performed By: #### L500.0140 0, L500.46873, L500.89585, L500.38965, L550.28016 ####[address] [address]Eg# [phone] Eosinophils/100 leukocytes 9.0 0-5 % High [facility] (59292) Comment: Order Comment: Boaz: M Performed By: #### L500.0140 0, L500.91184, L500.03622, L500.32952, L550.66036 ####[facility] DCBUQSXJHK1706 [place], [place] [address]Zc# [phone] IMMATR GRAN ABS 0.00 Less than 2 K/CU MM Normal 11-22-2016 [facility] (00 000) Comment: Order Comment: Boaz: M Performed By: #### L500.0140 0, L500.82462, L500.93690, L500.85507, L550.67413 ####[address] [address]Gy# [phone] IMMATURE GRAN % 0.8 Less than 2 % Normal 11-22-2016 [facility] (77453) Comment: Order Comment: Boaz: M Performed By: #### L500.0140 0, L500.42620, L500.90057, L500.46944, L550.55536 ####[address] [address]Ou# [phone] Lymphocytes 2.40 0.9-4.4 K/CU MM Normal 11-22-2016 [facility] (70827) Comment: Order Comment: Boaz: M Performed By: #### L500.0140 0, L500.81949, L500.31255, L500.97646, L550.70582 ####[address] [address]Vd# [phone] Lymphocytes/100 leukocytes 46.3 20-40 % High [facility] (93219) Comment: Order Comment: Boaz: M Performed By: #### L500.0140 0, L500.25795, L500.08508, L500.99183, L550.76769 ####[address] [address]Rw# [phone] MONO ABS 0.40 0.1-1.1 K/CU MM Normal 11-22-2016 [facility] (97269) Comment: Order Comment: Boaz: M Performed By: #### L500.0140 0, L500.31054, L500.89884, L500.20897, L550.40991 ####[address] [place], [place] [address]Qy# [phone] Monocytes/100 leukocytes 7.5 2-10 % Normal 11-22 [facility] (93566) Comment: Order Comment: Boaz: M Performed By: #### L500.0140 0, L500.05430, L500.05843, L500.09393, L550.45269 ####[address] [address]Tw# [phone] NC/NC NORMOCYTIC Normal 11-22-2016 [facility] (13521) Comment: Order Comment: Boaz: M Performed By: #### L500.0140 0, L500.88354, L500.33202, L500.87715, L550.90213 ####[facility] [place], [place] [address]Sk# [phone] Neutrophils 1.80 2.0-8.3 K/CU MM Low 11-22-2016 [facility] (79203) Comment: Order Comment: Boaz: M Performed By: #### L500.0140 0, L500.97939, L500.63044, L500.01462, L550.12260 ####[facility] HGXXFDXTWK6060 [place], [place] [address]Cy# [phone] Neutrophils/100 WBC Auto (Bld) 34.9 45-75 % Low 11-22-2016 [facility] (00 000) Comment: Order Comment: Boaz: M Performed By: #### L500.0140 0, L500.25418, L500.46811, L500.20148, L550.79766 ####[facility] YIKFOMORYX7861 [place], [place] [address]Pi# [phone] PLT EST ADEQUATE Normal 11-22-2016 [facility] (83880) Comment: Order Comment: Boaz: M Performed By: #### L500.0140 0, L500.63491, L500.08346, L500.48789, L550.15696 ####[facility] ZWOLYCTHFI4982 [place], [place] [address]Dz# [phone] POLY 1+ Normal 11-22-2016 [facility] (08564) Comment: Order Comment: Boaz: M Performed By: #### L500.0140 0, L500.32564, L500.38497, L500.63979, L550.83813 ####[address] [address]Dn# [phone] Erythrocyte distribution 12.8 11-14.5 % Normal 11-22 [facility] width Auto Ratio (RBC) [place] (80887) Comment: Order Comment: Boaz: M Performed By: #### L500.0140 0, L500.15371, L500.87103, L500.95396, L550.44931 ####[facility] SVIXVTDEMO9782 [place], [place] [address]Kk# [phone] Erythrocytes (RBC) 4.24 4.50-6.00 M/CU MM Low 11-22-2016 [facility] (64576) Comment: Order Comment: Boaz: M Performed By: #### L500.0140 0, L500.96252, L500.65325, L500.52339, L550.11528 ####[facility] VSFDKVHFDA4345 [place], [place] [address]Rs# [phone] Erythrocytes (RBC) 0.0 Less than 1 % Normal 7 [facility] [place] (14141) Comment: Order Comment: Boaz: M Performed By: #### L500.0140 0, L500.06285, L500.12672, L500.89922, L550.41615 ####[facility] ZAJQNRXLRT2845 [place], [place] [address]Pa# [phone] Hematocrit (HCT) 35.9 41.0-53.0 % Low 11-22-2016 [facility] (54743) Comment: Order Comment: Boaz: M Performed By: #### L500.0140 0, L500.23375, L500.94490, L500.42995, L550.58827 ####[facility] CEDJIUNCFU4511 [place], [place] [address]Oi# [phone] Hemoglobin mass conc (Bld) 12.2 13.5-17.5 G/DL Low [facility] (00 000) Comment: Order Comment: Boaz: M Performed By: #### L500.0140 0, L500.99992, L500.32956, L500.35402, L550.81094 ####[facility] FIUZLEEYDH0049 [place], [place] [address]Vy# [phone] MCHC mass conc (RBC) 34.0 32.0-36.0 GM/DL Normal 7 [facility] (00 000) Comment: Order Comment: Boaz: M Performed By: #### L500.0140 0, L500.37079, L500.67261, L500.58916, L550.90841 ####[facility] ZFXVTXMXVO9957 [place], [place] [address]Xq# [phone] MCV 84.7 80.0-99.0 fl Normal 11-22-2016 [facility] (90315) Comment: Order Comment: Boaz: M Performed By: #### L500.0140 0, L500.43093, L500.77968, L500.07767, L550.66129 ####[facility] PZEOBFOALE7495 [place], [place] [address]Oa# [phone] Platelet mean volume (PMV) 9.0 9.4-12.4 fL Low [facility] (15827) Comment: Order Comment: Boaz: M Performed By: #### L500.0140 0, L500.79133, L500.61213, L500.47132, L550.80811 ####[facility] SFLPONNOTS5153 [place], [place] [address]Pm# [phone] Platelets 189 150-450 K/CU MM Normal 11-22-2016 [facility] (36392) Comment: Order Comment: Boaz: M Performed By: #### L500.0140 0, L500.91373, L500.78333, L500.06149, L550.15815 ####[address] [address]Ny# [phone] WBC (Leukocytes) 5.2 4.5-11.0 K/CU MM Normal 11-22-2016 [facility] (18852) Comment: Order Comment: Boaz: M Performed By: #### L500.0140 0, L500.49621, L500.16130, L500.87059, L550.26833 ####[address] [address]Az# [phone] ur drug abuse on 12-11-24 UR AMPH NEGATIVE Sqqbqc=7187 Normal 11-20-2016 [facility] (71969) Comment: Order Comment: Boaz: M Performed By: #### L500.0140 0, L500.12826, L500.00281, L500.36916, L550.73071 ####[facility] EXSMXMZGZH0076 [place], [place] [address]Rl# [phone] UR ANNA NEGATIVE Qxnmmc=345 Normal 11-20-2016 [facility] (21079) Comment: Order Comment: Boaz: M Performed By: #### L500.0140 0, L500.49359, L500.44311, L500.22574, L550.40876 ####[facility] [address]FT[address] [place] [address]Yz# [phone] UR JANIS NEGATIVE Ukercm=194 Normal 11-20-2016 [facility] (45615) Comment: Order Comment: Boaz: M Performed By: #### L500.0140 0, L500.75783, L500.15382, L500.90228, L550.60085 ####[facility] ZQHLTMGRBL5970 [place], [place] [address]Ju# [phone] UR MOY/THC NEGATIVE Cutoff=50 Normal 11-20-2016 [facility] (42022) Comment: Order Comment: Boaz: M Performed By: #### L500.0140 0, L500.19739, L500.35800, L500.38804, L550.75186 ####[address] [place], [place] [address]Cr# [phone] UR AFSHIN NEGATIVE Vigahe=075 Normal 11-20-2016 [facility] (20081) Comment: Order Comment: Boaz: M Performed By: #### L500.0140 0, L500.21088, L500.64936, L500.67081, L550.02177 ####[facility] PCMIRAKYDS7047 [place], [place] [address]Fz# [phone] UR OPIAT POSITIVE Rmlqib=413 Normal 11-20-2016 [facility] (29577) Comment: Order Comment: Boaz: M Performed By: #### L500.0140 0, L500.31201, L500.19320, L500.22265, L550.32943 ####[facility] QEPIDTDKTE9908 [place], [place] [address]Sp# [phone] UR PCP NEGATIVE Cutoff=25 Normal 11-20-2016 [facility] (30528) Comment: Order Comment: Boaz: M Performed By: #### L500.0140 0, L500.57468, L500.65708, L500.74321, L550.26104 ####[facility] RRXLGNPADF7335 [place], [place] [address]Cp# [phone] DRAB COMMENT Normal 11-20-2016 [facility] (62803) Comment: Order Comment: Boaz: M Result Comment: Urine Drugs of Abuse results are qualitative, providing apreliminary analytical resu lt. A positive result for anassay should be confirmed by another nonimmu nological,reference method. A negative result indicates that theassay mate rial is either not present, or present at levelsbelow the cutoff thres hold for the analytical method range(AMR) validation. Performed By: #### L500.0140 0, L500.77406, L500.75139, L500.20182, L550.43416 ####[facility] JOCKDDFIAE7490 [place], [place] [address]Jz# [phone] wsr/mod on WSR/MOD 16 0-15 MM/HR High 11-17-2016 [facility] (47335) Comment: Order Comment: Boaz: M: \ Performed By: #### L200.0720 0 ####[facility] NRRUVZBPFY0656 [place], [place] [address]Cd# zinc on 2016-11-16 ZINC 79 56-134 ug/dL Normal 11-16-2016 [facility] (69863) Comment: Order Comment: Boaz: M Result Comment: Detection Li jesus alberto = 5Performed At: [facility] [address]gszsx[address] [place], [place] [address]Klfxoxu Joaquín Hayden [id number] Performed By: #### L550.0740 0 ####[facility] FKKIIRE0444 [place] [address]Qg# prealb on 2016-10-27 9 PREALB 30 20-40 MG/DL Normal 11-14-2016 [facility] (53560) Comment: Order Comment: Boaz: M Performed By: #### L500.0140 0, L500.00897, L500.96239, L500.55771, L550.41639 ####[facility] FXYUSPPGWN2041 [place], [place] [address]Co# [phone] phos on 2016-11-14 Phosphate 4.9 2.5-4.9 MG/DL Normal 11-14-2016 [facility] (89384) Comment: Order Comment: Boaz: M Performed By: #### L500.0140 0, L500.65115, L500.94382, L500.72966, L550.34697 ####[facility] XZFBDECGIF7854 [place], [place] [address]Ul# [phone] magnesium on 11-14 Magnesium 2.2 1.6-2.6 MG/DL Normal 11-14-2016 [facility] (81191) Comment: Order Comment: Boaz: M Performed By: #### L500.0140 0, L500.65449, L500.57792, L500.86743, L550.72249 ####[facility] XSANCGRHMA4300 [place], [place] [address]Pu# [phone] hp.ims.con on 11-14 CONSULTATION-H&P This is a preliminary report Norm al 11-14-2016 [facility] only, as the practitioner review [facility] [place] and authentication has not ([address]4821) occurred. HP.IMS.CON [facility] Patient Normal 11-14-2016 [facility] Name: LINDSAY DARLING [address] [facility] [address] Date of : ([address]) [address] [address] Unit Number: [id number] Number: [id number] Patient Status: REG RCRAttending Doctor: Jeane Gilman DOService Date: 11/14/16 1258History of Present IllnessConsulted ProviderFiSierra murry MDHistory of Present IllnessSara is a 26 yr old male, with a history of IVDU as well as chronic Hep C (untreated), who has been transferred here from [facility] due to osteomyelitis of the rightclavicle, with [...] fevers.Finally, he went to the hospital in [place], where he was taken up to the [...] fracture) MRSA wound infection.He was admitted at [place] and is now s.p removal of hardware from the right clavicle, on11/07.He was treated with IV Vanc while at [place], and a wound vac has been placed.Today, [...] IF AMER Greater than 60 Normal 11-15-[address] [place] [address] ([address]) Comment: Order Comment: Boaz: M Performed By: #### L500.0140 0, L500.09304, L500.97612, L500.78543, L550.68827 ####[facility] DWUXEDCYFR4888 [place], [place] [address]Us# [phone] IF non-AFR AMER Greater than 60 Normal 11-15-[address] [place] [address] ([address]) Comment: Order Comment: Boaz: M Performed By: #### L500.0140 0, L500.82245, L500.02202, L500.47200, L550.34242 ####[facility] KAVOUFJQYU0167 [place], [place] [address]Of# [phone] cmp on 2016-11-14 Alanine aminotransferase (ALT) 33 13-61 IU/L Normal 11-14-2016 [facility] (00 000) Comment: Order Comment: Boaz: M Performed By: #### L500.0140 0, L500.59486, L500.21749, L500.15528, L550.33807 ####[facility] KLEBMEUXWC5868 [place], [place] [address]Jc# [phone] Albumin 3.8 3.2-5.0 GM/DL Normal 11-14-2016 [facility] (35709) Comment: Order Comment: Boaz: M Performed By: #### L500.0140 0, L500.80222, L500.96433, L500.17989, L550.21613 ####[facility] DHKWZFNOUE4968 [place], [place] [address]Uk# [phone] Albumin/Globulin Ratio 1.0 0.8-2.0 {ratio} Normal 017 [facility] (00 000) Comment: Order Comment: Boaz: M Performed By: #### L500.0140 0, L500.56678, L500.70408, L500.21857, L550.12458 ####[facility] HUHRZLDWZW9965 [place], [place] [address]Qa# [phone] ALK PHOS 123 45-117 U/L High 11-14-2016 [facility] (84236) Comment: Order Comment: Boaz: M Performed By: #### L500.0140 0, L500.19045, L500.59312, L500.01215, L550.53675 ####[facility] YMSORIFVFO8146 [place], [place] [address]Yl# [phone] Anion gap 8 5-16 MMOL/L Normal 11-14-2016 [facility] (34285) Comment: Order Comment: Boaz: M Performed By: #### L500.0140 0, L500.39984, L500.79923, L500.23993, L550.85092 ####[facility] NDMZXXBMRZ1518 [place], [place] [address]By# [phone] BILI TOTAL 0.2 0.2-1.0 MG/DL Normal 11-14-2016 [facility] (82871) Comment: Order Comment: Boaz: M Performed By: #### L500.0140 0, L500.04988, L500.96474, L500.94421, L550.11935 ####[facility] QQCDDYZYNB9480 [place], [place] [address]Gn# [phone] BUN/Creatinine Ratio 27 15-24 mg/mg High 7 [facility] (47939) Comment: Order Comment: Boaz: M Performed By: #### L500.0140 0, L500.17791, L500.03563, L500.36159, L550.23196 ####[facility] YBDIKVNTIS9650 [place], [place] [address]Fq# [phone] Calcium 9.5 8.5-10.1 MG/DL Normal 11-14-2016 [facility] (79099) Comment: Order Comment: Boaz: M Performed By: #### L500.0140 0,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
--- OUTSIDE RECORDS SUMMARY | 2020-02-09 16:49 | XMS RPT_ITS | CCD ---
:1990 External Reference #:[id number] Author Organization [facility] Care Team Providers Name Role Phone ALANNALISA, R Unavailable Unavailable PHYSICIAN Unavailable Unavailable Annie DIMAS Unavailable Unavailable Kim Dooley Unavailable Curtis Gilman Unavailable Unavailable Андрей Unavailable Unavailable PROVIDER Unavailable Unavailable No Unavailable Unavailable Kim Dooley Unavailable Allergies Reported Allergen Reaction(s) Severity Date of Onset Location Bee anaphylaxis Critical, Critical 09-13-2016 - [facility] (0 7320) penicillin anaphylaxis Critical, Critical 09-13-2016 [facility] (7 2757) Problems Active Problems Category Problem Name Status Date Location Fracture of upper limb Displaced fracture of Active [address] [place] [address] shaft of right Sports Medici ne and clavicle, initial Orthopaedi cs (14498) encounter for closed fracture Hepatitis Unspecified viral Active 11-12-2017 - [facility] hepatitis C without (06059) hepatic coma Sprains and strains Ulnar collateral Active 11-12-2017 - [facility] ligament sprain of (94557) left elbow, initial encounter Substance-related Nicotine dependence, Active 11-12-2017 - [facility] disorders unspecified, (98053) uncomplicated Unclassified 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 [place] (24506) Past or Other Problems Category Problem Name Status Date Location Unclassified RIGHT CLAVICLE 11-13-2016 - [facility] [place] BREAK,WOUND CARE,WOUND (0000 0) VAC,MRSA Unclassified POST SURGICAL 10-24-2016 - [facility] INFECTION/FRACTURE OF (57050 ) CLAVICLE,... Results Result Name Value Range Unit Interpretation Flag [facility] CNPN Telephone (UCWSTR) Normal 12-29-[address] [place] [facility] MARIELAAMOSENSLINDSAY ([id number]) 1990 [facility] Date Time Provider Department (13908) 12/29/19 LINETTE BRITO) [facility] During your visit today, we recorded [...] 2019-12-28 Syphilis Interp Cannot exclude recent Normal [facility] Treponemal infection if [place] (28937) specimen collected within 7 to 10 days after appearance of suspect lesions or 2 to 3 weeks after an exposure. Clinical correlation is required. Comment: Performed By: #### SYPHTX ## ## [facility] [address] [place], [place] [address] Syphilis Screen Non Reactive Non Reactive Normal 12-28-19 [facility] Rslt [place] (15155) Comment: Performed By: #### SYPHTX ## ## [facility] [address] [place], [place] [address] progress on 2019-11 PROGRESS HNO ID: [id number] Normal 12-28-2019 [place] Author: Tristan Zhang [facility] Service: ? [place] Author Type: Physician ([id number]) Type: Progress Notes Filed: 12/28/2019 10:05 AM [...] 2019-12-28 CNOV Office Visit (UCWSTR) Normal 12-28-[address] [place] [address] LINDSAY Malagon ([id number]) 1990 [facility] Date Time Provider Department (10380) 12/28/19 9:30 AM TRISTAN ZHANG [facility] During your visit today, we recorded [...] [A63.0] Order(s):SYPHILIS TOTAL W/REFLEX [SQSYPHTX] Order #: [id number] FUTURE CONSULT TO UROLOGY [9041] Order #: [id number]: 1 FUTURE Problem List As Of Date [...] CULTURE URINE --> Status: F Normal [facility]-06-2018 [facility] (<1,000 CFU/ml). (53011) Comment: Order Comment: Specimen Sour ce Comment:Urine, clean catch Performed By: #### C/UR #### [facility] [address] [place] [id number] drugs of abuse on Opiates, Ur Negative Normal 11-05-2018 [facility] (98487) Comment: Performed By: #### CUA2, DRG A4 #### [address] [place] [address] Phencyclidine (PCP), Ur Negative Normal 2018 [facility] (94146) Comment: Result Comment: The expected value for [...] Performed By: #### CUA2, DRG A4 #### [address] [address] Methadone, Ur Negative Normal 11-05-2018 [facility] (44484) Comment: Performed By: #### CUA2, DRG A4 #### [address] [place] [address] Benzodiazepines, Ur Negative Normal 11-05-2018 [facility] (30485) Comment: Performed By: #### CUA2, DRG A4 #### [address] [place] [address] Cocaine, Ur Negative Normal 11-05-2018 [facility] (30971) Comment: Performed By: #### CUA2, DRG A4 #### [address] [place] [address] Amphetamines, Ur Negative Normal 11-05-2018 [facility] (08696) Comment: Performed By: #### CUA2, DRG A4 #### [address] [place] [address] Barbiturates, Ur Negative Normal 11-05-2018 [facility] (20727) Comment: Performed By: #### CUA2, DRG A4 #### [facility] [address] [place] [address] Oxycodone/Oxymorphine,Ur Negative Normal 11-05 [facility] (01849) Comment: Performed By: #### CUA2, DRG A4 #### [facility] [address] [place] [address] ct abdomen/pelvis w/o contrast on 2018-11-05 CT Abdomen/Pelvis w/o Patient Name: LINDSAY DARLING Normal 11-05-2018 [facility] (20175) CT Exam Date/Time 11/05/2018 12:58:[address] Abdomen/Pelvis (No PO, No IV) Ordering Physician MD ALEXYS, [facility] Accession Number [id number] CPT4 Codes 71629 (CT Abdomen/Pelvis (No PO, No IV)) Reason [...] 2018-11-05 Appearance (U) Sl. Cloudy Normal 11-05-2018 [facility] (42785) Comment: Result Comment: Reference Ra nge: Clear Performed By: #### CUA2, DRG A4 #### [facility] [address] [place] [address] Bilirubin,Urine Negative Normal 11-05-2018 [facility] (08961) Comment: Result Comment: Reference Ra nge: Negative Performed By: #### CUA2, DRG A4 #### [facility] [address] [place] [address] Color (U) Yellow Normal 11-05-2018 [facility] (35600) Comment: Result Comment: Reference Ra nge: Lt. Yellow Performed By: #### CUA2, DRG A4 #### [address] [place] [address] Glucose Ql (U) NEG (Normal) Normal 11-05-2018 [facility] (00916) Comment: Result Comment: Reference Ra nge: Normal (<70) Performed By: #### CUA2, DRG A4 #### [address] [address] Ketone,Urine Negative Normal 11-05-2018 [facility] (16914) Comment: Result Comment: Reference Ra nge: Negative Performed By: #### CUA2, DRG A4 #### [address] [address] Leukocytes,Urine NEG Normal 11-05-2018 [facility] (86019) Comment: Result Comment: Reference Ra nge: Negative Performed By: #### CUA2, DRG A4 #### [address] [address] Nitrites,Urine NEG Normal 11-05-2018 [facility] (43507) Comment: Result Comment: Reference Ra nge: Negative Performed By: #### CUA2, DRG A4 #### [address] [place] [address] Occult Blood,Urine Negative Normal 11-05-2018 [facility] (50026) Comment: Result Comment: Reference Ra nge: Negative Performed By: #### CUA2, DRG A4 #### [address] [place] [address] pH (U) 8.0 5.0-8.0 Normal 11-05-2018 [facility] (94104) Comment: Performed By: #### CUA2, DRG A4 #### [address] [address] Protein (U) [Mass/Vol] NEG mg/dL Normal 019 [facility] (71597) Comment: Result Comment: Reference Ra nge: Negative Performed By: #### CUA2, DRG A4 #### [address] [place] [address] Specific [place],Urine 1.010 1.005-1.030 Normal 11-05 [facility] (07259) Comment: Performed By: #### CUA2, DRG A4 #### [address] [place] [address] Urobilinogen,Urine Normal (0.2) Normal 11-06-19 [facility] (66444) Comment: Result Comment: Reference Ra nge: Normal (0-1) Performed By: #### CUA2, DRG A4 #### [address] [address] basic metabolic panel on 2018-11-05 Calcium [Mass/Vol] 9.4 8.4-10.4 mg/dL Normal 11-05-2018 [facility] (58174) Comment: Performed By: #### BMP3 #### [address] [address] Anion gap [Moles/Vol] 7 Normal 11-06-19 [facility] (39999) Comment: Performed By: #### BMP3 #### [address] [address] CO2 [Moles/Vol] 30 22-30 mmol/L Normal 11-05-2018 [facility] (73013) Comment: Performed By: #### BMP3 #### [address] [place] [address] Creatinine [Mass/Vol] 0.59 0.52-1.25 mg/dL Normal 11-06-19 [facility] (09960) Comment: Performed By: #### BMP3 #### [address] [place] [address] GFR/1.73 sq M > 60.0 >60 mL/min/{1.73_m2} Normal 9 [facility] predicted among Syst em (50927) blacks MDRD (S/P/Bld) [Vol rate/Area] Comment: Performed By: #### BMP3 #### [facility] [address] [place] [address] GFR/1.73 sq M > 60.0 >60 mL/min/{1.73_m2} Normal 9 [facility] predicted among Syst em (69039) non-blacks MDRD (S/P/Bld) [Vol rate/Area] Comment: Result Comment: Source- MDRD equation with creatinine calibration to IDMS(NKDEP) eGFR not recommended for carmine g dose adjustment Performed By: #### BMP3 #### [facility] [place] [address] Glucose [Mass/Vol] 105 70-100 mg/dL High 11-05-2018 [facility] (39035) Comment: Performed By: #### BMP3 #### [facility] [place] [address] Urea nitrogen [Mass/Vol] 12 7-20 mg/dL Normal 11-05 [facility] (62732) Comment: Performed By: #### BMP3 #### [facility] [place] [address] Chloride [Moles/Vol] 101 98-107 mmol/L Normal 9 [facility] (55611) Comment: Performed By: #### BMP3 #### [address] [place] [address] Potassium [Moles/Vol] 3.9 3.5-5.1 mmol/L Normal 11-06-19 19 [facility] (56054) Comment: Performed By: #### BMP3 #### [address] [place] [address] Sodium [Moles/Vol] 137 135-145 mmol/L Normal 11-05-2018 [facility] (58515) Comment: Performed By: #### BMP3 #### [facility] [address] [place] [address], [place] [address] replaced document: (p) culture, fungus w / [id number] on 2016-12-21 GE use only - for . Invalid Interpretation 12-21-2016 - [facility] Link[employer]ic import Code 12-21-2016 [facility] and when terms are not O rthopaedics (98480) otherwise specified wound culture on 13-12-18 WOUND CULTURE GRAM STAIN Normal 12-15-2016 [facility] FEW WBC'S [place] (00 000) FEW GRAM POSITIVE COCCI FEW GRAM POSITIVE BACILLUS ORGANISM 1: DIPHTHEROIDS QUANTITATION MODERATE ID TO FOLLOW NOT VIABLE FOR SENSITIVITY Comment: Order Comment: Cameron: M Performed By: #### L500.0140 0, L500.59166, L500.54355, L500.66909, L550.99707 ####[facility] [id number] [place], [place] [address]Kw# [phone] gfr est on IF AMER Greater than 60 Normal 12-16-[address] [place] [address] (34164) Comment: Order Comment: Cameron: M Performed By: #### L500.0140 0, L500.73620, L500.54599, L500.18273, L550.90959 ####[facility] [address] [place] [address]Tw# [phone] IF non-AFR AMER Greater than 60 Normal 12-16-[address] [place] [address] (23493) Comment: Order Comment: Cameron: M Performed By: #### L500.0140 0, L500.52395, L500.76392, L500.27550, L550.94176 ####[facility] TIXHBFBUGH[address]2 [place], [place] [address]Vi# [phone] cmp on 2016-12-15 Alanine aminotransferase (ALT) 45 13-61 IU/L Normal 12-15-2016 [facility] [place] (00 000) Comment: Order Comment: Cameron: M Performed By: #### L500.0140 0, L500.74537, L500.08754, L500.74897, L550.02746 ####[facility] GKFQXMOQWM9375 [place], [place] [address]Rt# [phone] Albumin 3.4 3.2-5.0 GM/DL Normal 12-15-2016 [facility] (03385) Comment: Order Comment: Cameron: M Performed By: #### L500.0140 0, L500.77406, L500.61008, L500.89470, L550.14313 ####[facility] TAEECTWCYF2566 [place], [place] [address]Xe# [phone] Albumin/Globulin Ratio 0.9 0.8-2.0 {ratio} Normal 017 [facility] (00 000) Comment: Order Comment: Cameron: M Performed By: #### L500.0140 0, L500.85176, L500.39387, L500.54859, L550.92138 ####[facility] [id number] [place], [place] [address]Sv# [phone] ALK PHOS 130 45-117 U/L High 12-15-2016 [facility] (55376) Comment: Order Comment: Cameron: M Performed By: #### L500.0140 0, L500.32939, L500.92167, L500.00951, L550.24904 ####[facility] ABBNEZRXBC5239 [place], [place] [address]Ou# [phone] Anion gap 9 5-16 MMOL/L Normal 12-15-2016 [facility] (59580) Comment: Order Comment: Cameron: M Performed By: #### L500.0140 0, L500.45542, L500.76052, L500.55533, L550.74633 ####[facility] [id number] [place], [place] [address]Kl# [phone] BILI TOTAL 0.3 0.2-1.0 MG/DL Normal 12-15-2016 [facility] (78965) Comment: Order Comment: Cameron: M Performed By: #### L500.0140 0, L500.70377, L500.69998, L500.44225, L550.07006 ####[facility] BJWIPQMBBT5581 [place], [place] [address]Uz# [phone] BUN/Creatinine Ratio 18 15-24 mg/mg Normal 7 [facility] (43894) Comment: Order Comment: Cameron: M Performed By: #### L500.0140 0, L500.67561, L500.50567, L500.26881, L550.49255 ####[facility] MNKASACYWO9470 [place], [place] [address]Jd# [phone] Calcium 9.8 8.5-10.1 MG/DL Normal 12-15-2016 [facility] (33950) Comment: Order Comment: Cameron: M Performed By: #### L500.0140 0, L500.75440, L500.80272, L500.45268, L550.80703 ####[facility] YLVEIUXEAY8703 [place], [place] [address]Us# [phone] Chloride 100 98-107 MMOL/L Normal 12-15-2016 [facility] (34998) Comment: Order Comment: Cameron: M Performed By: #### L500.0140 0, L500.54505, L500.31560, L500.74673, L550.64171 ####[facility] SIJJQRVCVJ5097 [place], [place] [address]Qc# [phone] CO2 30 21-32 MMOL/L Normal 12-15-2016 [facility] (73233) Comment: Order Comment: Cameron: M Performed By: #### L500.0140 0, L500.89418, L500.67203, L500.23031, L550.85125 ####[facility] WPCZXVAOXX4285 [place], [place] [address]Gg# [phone] Creatinine 0.867 0.670-1.170 MG/DL Normal 12-15-2016 [facility] (75118) Comment: Order Comment: Cameron: M Result Comment: Patients rec eiving either N-Acetylcysteine (NAC) orMetamizole prior to venipu ncture, may have falsely depressedresults. Performed By: #### L500.0140 0, L500.64199, L500.85823, L500.57566, L550.57225 ####[facility] SMTMYIEXSR7652 [place], [place] [address]Fq# [phone] Globulin 3.6 2.2-4.2 GM/DL Normal 12-15-2016 [facility] (46078) Comment: Order Comment: Cameron: M Performed By: #### L500.0140 0, L500.64675, L500.97139, L500.74210, L550.09142 ####[facility] FDNPYCCEGE8715 [place], [place] [address]Tn# [phone] Glucose mass conc 98 70-100 MG/DL Normal 12-15-2016 [facility] (90757) Comment: Order Comment: Cameron: M Result Comment: 95-204-Kocfd l Fasting; 773-813-Ckskxbgh Fasting; greaterthan 126 on more than one result- Diabetes. ADA guidelines Performed By: #### L500.0140 0, L500.27075, L500.83514, L500.04473, L550.38602 ####[facility] LCNSICFBSK8317 [place], [place] [address]Th# [phone] Potassium molar conc 4.3 3.5-5.1 MMOL/L Normal 7 [facility] (63395) Comment: Order Comment: Cameron: M Performed By: #### L500.0140 0, L500.70953, L500.78503, L500.18221, L550.06854 ####[facility] BOCLCPUOQW9644 [place], [place] [address]Nq# [phone] Protein 7.0 6.0-8.5 GM/DL Normal 12-15-2016 [facility] (79154) Comment: Order Comment: Cameron: M Performed By: #### L500.0140 0, L500.80405, L500.13712, L500.09239, L550.93094 ####[facility] VUBHQFHHPU2752 [place], [place] [address]Um# [phone] SGOT (AST) 30 8-34 U/L Normal 12-15-2016 [facility] (90996) Comment: Order Comment: Cameron: M Performed By: #### L500.0140 0, L500.34716, L500.38282, L500.15662, L550.25798 ####[facility] [place] [address]Iv# [phone] Sodium 139 136-145 MMOL/L Normal 12-15-2016 [facility] (16486) Comment: Order Comment: Cameron: M Performed By: #### L500.0140 0, L500.23267, L500.55178, L500.55229, L550.38782 ####[address] [address]Yj# [phone] Urea nitrogen 16 7-26 MG/DL Normal 12-15-2016 [facility] (27462) Comment: Order Comment: Cameron: M Performed By: #### L500.0140 0, L500.32014, L500.96400, L500.14545, L550.60009 ####[facility] [place] [address]Ep# [phone] cbc w/diff on 12-15 BASO ABS 0.10 0-0.2 K/CU MM Normal 12-15-2016 [facility] (17346) Comment: Order Comment: Cameron: M Performed By: #### L500.0140 0, L500.32417, L500.90929, L500.24938, L550.55446 ####[address] [place], [place] [address]Rj# [phone] Basophils/100 WBC Auto (Bld) 1.4 0-2 % Normal 0 12-15-2016 [facility] (01354) Comment: Order Comment: Cameron: M Performed By: #### L500.0140 0, L500.71037, L500.64503, L500.58070, L550.66089 ####[facility] BBVREVMUDY5150 [place], [place] [address]Lo# [phone] EOS ABS 0.40 0-0.5 K/CU MM Normal 12-15-2016 [facility] [place] (83305) Comment: Order Comment: Cameron: M Performed By: #### L500.0140 0, L500.03076, L500.92761, L500.61067, L550.62562 ####[facility] JVTRHPZZWL3479 [place], [place] [address]Ht# [phone] Eosinophils/100 leukocytes 6.1 0-5 % High [facility] (92891) Comment: Order Comment: Cameron: M Performed By: #### L500.0140 0, L500.05825, L500.04781, L500.37452, L550.01620 ####[facility] LKWANBOIVN1727 [place], [place] [address]Ag# [phone] Erythrocyte distribution 13.1 11-14.5 % Normal 12-15 [facility] width Auto Ratio (RBC) [place] (06915) Comment: Order Comment: Cameron: M Performed By: #### L500.0140 0, L500.86002, L500.70503, L500.79657, L550.88269 ####[facility] GPHXJSQIJR5460 [place], [place] [address]Qy# [phone] Erythrocytes (RBC) 4.41 4.50-6.00 M/CU MM Low 12-15-2016 [facility] (74638) Comment: Order Comment: Cameron: M Performed By: #### L500.0140 0, L500.19150, L500.69041, L500.66026, L550.98442 ####[facility] HTRRMAQDRN6531 [place], [place] [address]Sa# [phone] Erythrocytes (RBC) 0.0 Less than 1 % Normal [address] [place] [address] ([address]24) Comment: Order Comment: Cameron: M Performed By: #### L500.0140 0, L500.79934, L500.44697, L500.33496, L550.48128 ####[facility] XPHVPKJKDF5792 [place], [place] [address]Xe# [phone] Hematocrit (HCT) 37.4 41.0-53.0 % Low 12-15-2016 [facility] (83789) Comment: Order Comment: Cameron: M Performed By: #### L500.0140 0, L500.08931, L500.35226, L500.38324, L550.70346 ####[address] [address]Qp# [phone] Hemoglobin mass conc (Bld) 12.4 13.5-17.5 G/DL Low [facility] (00 000) Comment: Order Comment: Cameron: M Performed By: #### L500.0140 0, L500.44215, L500.47073, L500.94137, L550.62257 ####[facility] SYHOFECJHB0857 [place], [place] [address]Rw# [phone] IMMATR GRAN ABS 0.10 Less than 2 K/CU MM Normal 12-15-2016 [facility] (00 000) Comment: Order Comment: Cameron: M Performed By: #### L500.0140 0, L500.13156, L500.52008, L500.73502, L550.79732 ####[facility] UQNKTXBFUE6381 [place], [place] [address]Vh# [phone] IMMATURE GRAN % 0.8 Less than 2 % Normal 12-15-2016 [facility] (41729) Comment: Order Comment: Cameron: M Performed By: #### L500.0140 0, L500.69675, L500.43087, L500.56995, L550.07698 ####[facility] DKUAZXHNBJ7186 [place], [place] [address]Ap# [phone] Lymphocytes 3.60 0.9-4.4 K/CU MM Normal 12-15-2016 [facility] (37242) Comment: Order Comment: Cameron: M Performed By: #### L500.0140 0, L500.93987, L500.59657, L500.70991, L550.15066 ####[facility] [place], [place] [address]Rk# [phone] Lymphocytes/100 leukocytes 56.6 20-40 % High [facility] (16576) Comment: Order Comment: Cameron: M Performed By: #### L500.0140 0, L500.10336, L500.48872, L500.58350, L550.39182 ####[address] [place], [place] [address]Zz# [phone] MCHC mass conc (RBC) 33.2 32.0-36.0 GM/DL Normal 7 [facility] (00 000) Comment: Order Comment: Cameron: M Performed By: #### L500.0140 0, L500.18298, L500.26390, L500.80970, L550.59841 ####[facility] HQAOEUSHKB6321 [place], [place] [address]Rx# [phone] MCV 84.8 80.0-99.0 fl Normal 12-15-2016 [facility] (31704) Comment: Order Comment: Cameron: M Performed By: #### L500.0140 0, L500.65879, L500.43444, L500.92260, L550.56585 ####[facility] OWVDTDMBTH0877 [place], [place] [address]Sb# [phone] MONO ABS 0.50 0.1-1.1 K/CU MM Normal 12-15-2016 [facility] (61606) Comment: Order Comment: Cameron: M Performed By: #### L500.0140 0, L500.33695, L500.87526, L500.56035, L550.26163 ####[facility] UOPKNIREET[address] [place], [place] [address]Kn# [phone] Monocytes/100 leukocytes 8.5 2-10 % Normal 12-15 [facility] (90324) Comment: Order Comment: Cameron: M Performed By: #### L500.0140 0, L500.29369, L500.55170, L500.21207, L550.57093 ####[facility] MUSJNPJDMO0599 [place], [place] [address]Yo# [phone] Neutrophils 1.70 2.0-8.3 K/CU MM Low 12-15-2016 [facility] (39194) Comment: Order Comment: Cameron: M Performed By: #### L500.0140 0, L500.23126, L500.89925, L500.59493, L550.13492 ####[facility] [address]TDGGNHOVF[address] [place] [address]Ip# [phone] Neutrophils/100 WBC Auto (Bld) 26.6 45-75 % Low 12-15-2016 [facility] (00 000) Comment: Order Comment: Cameron: M Performed By: #### L500.0140 0, L500.10722, L500.44139, L500.78335, L550.80431 ####[facility] JLJKUBOMSZ4739 [place], [place] [address]Vj# [phone] Platelet mean volume (PMV) 8.8 9.4-12.4 fL Low [facility] (75324) Comment: Order Comment: Cameron: M Performed By: #### L500.0140 0, L500.09666, L500.04226, L500.79907, L550.90642 ####[facility] [id number] [place], [place] [address]Lx# [phone] Platelets 242 150-450 K/CU MM Normal 12-15-2016 [facility] ([id number]) Comment: Order Comment: Cameron: M Performed By: #### L500.0140 0, L500.31000, L500.26907, L500.66083, L550.90247 ####[facility] [id number] [place], [place] [address]Vd# [phone] WBC (Leukocytes) 6.4 4.5-11.0 K/CU MM Normal 12-15-2016 [facility] ([id number]) Comment: Order Comment: Cameron: M Performed By: #### L500.0140 0, L500.15461, L500.56733, L500.87151, L550.43966 ####[facility] [id number] [place], [place] [address]Ks# [phone] gfr est on IF AMER Greater than 60 Normal 12-14-[address] [place] [address] ([id number]) Comment: Order Comment: Cameron: M Performed By: #### L500.0140 0, L500.25347, L500.57016, L500.22521, L550.31826 ####[facility] [id number] [place], [place] [address]Lg# [phone] IF non-AFR AMER Greater than 60 Normal 12-14-[address] [place] [address] ([id number]) Comment: Order Comment: Cameron: M Performed By: #### L500.0140 0, L500.55382, L500.83727, L500.70831, L550.86861 ####[facility] [id number] [place] [address]Uo# [phone] cmp on 2016-12-13 Alanine aminotransferase (ALT) 46 13-61 IU/L Normal 12-13-2016 [facility] (00 000) Comment: Order Comment: Cameron: M Performed By: #### L500.0140 0, L500.07516, L500.36187, L500.23794, L550.20136 ####[facility] CJXVQOPGEE2014 [place], [place] [address]Xz# [phone] Albumin 3.4 3.2-5.0 GM/DL Normal 12-13-2016 [facility] (89051) Comment: Order Comment: Cameron: M Performed By: #### L500.0140 0, L500.87505, L500.76376, L500.78083, L550.87444 ####[facility] XOZZNBDNML3264 [place], [place] [address]Zz# [phone] Albumin/Globulin Ratio 1.0 0.8-2.0 {ratio} Normal 017 [facility] (00 000) Comment: Order Comment: Cameron: M Performed By: #### L500.0140 0, L500.53429, L500.12482, L500.98318, L550.57384 ####[facility] HPKTJBYARE3202 [place], [place] [address]Gj# [phone] ALK PHOS 114 45-117 U/L Normal 12-13-2016 [facility] (70944) Comment: Order Comment: Cameron: M Performed By: #### L500.0140 0, L500.08153, L500.82070, L500.07289, L550.50874 ####[facility] KCDXBDNYLS8234 [place], [place] [address]Hs# [phone] Anion gap 9 5-16 MMOL/L Normal 12-13-2016 [facility] (16048) Comment: Order Comment: Cameron: M Performed By: #### L500.0140 0, L500.85154, L500.46691, L500.68392, L550.19793 ####[facility] XWDIGPJBBI7825 [place], [place] [address]Mr# [phone] BILI TOTAL 0.3 0.2-1.0 MG/DL Normal 12-13-2016 [facility] (56177) Comment: Order Comment: Cameron: M Performed By: #### L500.0140 0, L500.69667, L500.10730, L500.08648, L550.81782 ####[facility] VUAVTJYTIT6250 [place], [place] [address]Jl# [phone] BUN/Creatinine Ratio 19 15-24 mg/mg Normal 7 [facility] (26796) Comment: Order Comment: Cameron: M Performed By: #### L500.0140 0, L500.37254, L500.87375, L500.07192, L550.81092 ####[facility] UEVVIUMQON6420 [place], [place] [address]Lp# [phone] Calcium 9.2 8.5-10.1 MG/DL Normal 12-13-2016 [facility] (35073) Comment: Order Comment: Cameron: M Performed By: #### L500.0140 0, L500.96454, L500.48636, L500.86430, L550.41885 ####[facility] YUZFESJWEA0015 [place], [place] [address]Nv# [phone] Chloride 102 98-107 MMOL/L Normal 12-13-2016 [facility] (85574) Comment: Order Comment: Cameron: M Performed By: #### L500.0140 0, L500.63894, L500.81527, L500.04699, L550.18804 ####[facility] DGZKNUDVMF2141 [place], [place] [address]Qg# [phone] CO2 27 21-32 MMOL/L Normal 12-13-2016 [facility] (18185) Comment: Order Comment: Cameron: M Performed By: #### L500.0140 0, L500.02938, L500.72137, L500.23802, L550.01958 ####[facility] NDMKENQBYQ5491 [place], [place] [address]Xt# [phone] Creatinine 0.774 0.670-1.170 MG/DL Normal 12-13-2016 [facility] (31845) Comment: Order Comment: Cameron: M Result Comment: Patients rec eiving either N-Acetylcysteine (NAC) orMetamizole prior to venipu ncture, may have falsely depressedresults. Performed By: #### L500.0140 0, L500.06586, L500.50744, L500.39156, L550.93397 ####[facility] TXERVLQPLZ6765 [place], [place] [address]Om# [phone] Globulin 3.3 2.2-4.2 GM/DL Normal 12-13-2016 [facility] (23907) Comment: Order Comment: Cameron: M Performed By: #### L500.0140 0, L500.69015, L500.32605, L500.55732, L550.35133 ####[facility] OZAUIFJBPM7956 [place], [place] [address]Ey# [phone] Glucose mass conc 83 70-100 MG/DL Normal 12-13-2016 [facility] (16829) Comment: Order Comment: Cameron: M Result Comment: 99-293-Kjwfi l Fasting; 724-820-Gyivoxod Fasting; greaterthan 126 on more than one result- Diabetes. ADA guidelines Performed By: #### L500.0140 0, L500.65093, L500.56118, L500.47784, L550.56291 ####[facility] MXXMBODDFY4575 [place], [place] [address]Mc# [phone] Potassium molar conc 4.5 3.5-5.1 MMOL/L Normal 7 [facility] (26200) Comment: Order Comment: Cameron: M Performed By: #### L500.0140 0, L500.35454, L500.43953, L500.22755, L550.74455 ####[facility] PTAZGYHXBC4933 [place], [place] [address]Oi# [phone] Protein 6.7 6.0-8.5 GM/DL Normal 12-13-2016 [facility] (28681) Comment: Order Comment: Cameron: M Performed By: #### L500.0140 0, L500.02382, L500.32407, L500.26656, L550.85755 ####[facility] JXHDYLRCLV0899 [place], [place] [address]Xt# [phone] SGOT (AST) 30 8-34 U/L Normal 12-13-2016 [facility] (11422) Comment: Order Comment: Cameron: M Performed By: #### L500.0140 0, L500.48496, L500.66734, L500.65085, L550.69117 ####[facility] UIODKVYZIM6672 [place], [place] [address]Zt# [phone] Sodium 137 136-145 MMOL/L Normal 12-13-2016 [facility] (47975) Comment: Order Comment: Cameron: M Performed By: #### L500.0140 0, L500.73930, L500.78686, L500.48736, L550.94015 ####[facility] RRPDTOOUTA0306 [place], [place] [address]Rf# [phone] Urea nitrogen 15 7-26 MG/DL Normal 12-13-2016 [facility] (70822) Comment: Order Comment: Cameron: M Performed By: #### L500.0140 0, L500.48191, L500.28478, L500.05240, L550.66461 ####[facility] UOIJWEKCSI2634 [place], [place] [address]Zh# [phone] cbc w/diff on 12-13 BASO ABS 0.10 0-0.2 K/CU MM Normal 12-13-2016 [facility] (47187) Comment: Order Comment: Cameron: M Performed By: #### L500.0140 0, L500.34876, L500.11408, L500.77276, L550.52851 ####[facility] WYLZTMDGXN9721 [place], [place] [address]Ev# [phone] Basophils/100 WBC Auto (Bld) 1.2 0-2 % Normal 0 12-13-2016 [facility] (47232) Comment: Order Comment: Cameron: M Performed By: #### L500.0140 0, L500.60155, L500.90425, L500.19520, L550.12130 ####[facility] LKMSDDNXHI1394 [place], [place] [address]Ug# [phone] EOS ABS 0.30 0-0.5 K/CU MM Normal 12-13-2016 [facility] [place] (06643) Comment: Order Comment: Cameron: M Performed By: #### L500.0140 0, L500.06397, L500.53322, L500.67775, L550.80109 ####[address] [address]Gs# [phone] Eosinophils/100 leukocytes 4.5 0-5 % Normal [facility] (82251) Comment: Order Comment: Cameron: M Performed By: #### L500.0140 0, L500.44812, L500.45977, L500.85926, L550.72796 ####[facility] QLFBHSQZMN1920 [place], [place] [address]Vu# [phone] Erythrocyte distribution 13.3 11-14.5 % Normal 12-13 [facility] width Auto Ratio (RBC) [place] (90918) Comment: Order Comment: Cameron: M Performed By: #### L500.0140 0, L500.74528, L500.17866, L500.89359, L550.96027 ####[facility] [address] [place] [address]Ox# [phone] Erythrocytes (RBC) 0.0 Less than 1 % Normal 7 [facility] (46374) Comment: Order Comment: Cameron: M Performed By: #### L500.0140 0, L500.57305, L500.03212, L500.80564, L550.43004 ####[facility] YFGNWCHQTT5443 [place], [place] [address]Pt# [phone] Erythrocytes (RBC) 4.24 4.50-6.00 M/CU MM Low 12-13-2016 [facility] (51034) Comment: Order Comment: Cameron: M Performed By: #### L500.0140 0, L500.47579, L500.70905, L500.16218, L550.23893 ####[facility] SUZSEJVCVB1239 [place], [place] [address]Lb# [phone] Hematocrit (HCT) 36.8 41.0-53.0 % Low 12-13-2016 [facility] (82339) Comment: Order Comment: Cameron: M Performed By: #### L500.0140 0, L500.93051, L500.36943, L500.31642, L550.40890 ####[facility] MXJQKRKVIR2033 [place], [place] [address]Ct# [phone] Hemoglobin mass conc (Bld) 12.0 13.5-17.5 G/DL Low [facility] (00 000) Comment: Order Comment: Cameron: M Performed By: #### L500.0140 0, L500.67661, L500.51101, L500.18137, L550.99627 ####[facility] ATKAZUDDBS5315 [place], [place] [address]Rb# [phone] IMMATR GRAN ABS 0.00 Less than 2 K/CU MM Normal 12-13-2016 [facility] (00 000) Comment: Order Comment: Cameron: M Performed By: #### L500.0140 0, L500.30097, L500.99024, L500.36639, L550.19100 ####[facility] QPALAHMAFP1330 [place], [place] [address]We# [phone] IMMATURE GRAN % 0.5 Less than 2 % Normal 12-13-2016 [facility] (13237) Comment: Order Comment: Cameron: M Performed By: #### L500.0140 0, L500.73827, L500.59704, L500.84286, L550.81000 ####[facility] PCDAKYBGEH1853 [place], [place] [address]Il# [phone] Lymphocytes 4.10 0.9-4.4 K/CU MM Normal 12-13-2016 [facility] (65656) Comment: Order Comment: Cameron: M Performed By: #### L500.0140 0, L500.31589, L500.34496, L500.77755, L550.50108 ####[facility]13[address] [place], [place] [address]Ls# [phone] Lymphocytes/100 leukocytes 63.2 20-40 % High [facility] (38988) Comment: Order Comment: Cameron: M Performed By: #### L500.0140 0, L500.98471, L500.71529, L500.26125, L550.43605 ####[facility] YVGAILMIDV4973 [place], [place] [address]Sj# [phone] MCHC mass conc (RBC) 32.6 32.0-36.0 GM/DL Normal 7 [facility] (00 000) Comment: Order Comment: Cameron: M Performed By: #### L500.0140 0, L500.59880, L500.48865, L500.63230, L550.85010 ####[facility] BWAFIKKWGT2324 [place], [place] [address]Hu# [phone] MCV 86.8 80.0-99.0 fl Normal 12-13-2016 [facility] (09602) Comment: Order Comment: Cameron: M Performed By: #### L500.0140 0, L500.01984, L500.36182, L500.83704, L550.97989 ####[facility] SDPQMBENBD6421 [place], [place] [address]Ou# [phone] MONO ABS 0.50 0.1-1.1 K/CU MM Normal 12-13-2016 [facility] (48942) Comment: Order Comment: Cameron: M Performed By: #### L500.0140 0, L500.82837, L500.95559, L500.34973, L550.77007 ####[facility] ZFMPPYHMQQ8306 [place], [place] [address]Gn# [phone] Monocytes/100 leukocytes 7.6 2-10 % Normal 12-13 [facility] (35810) Comment: Order Comment: Cameron: M Performed By: #### L500.0140 0, L500.10433, L500.20104, L500.84083, L550.68183 ####[address] [address]Cp# [phone] Neutrophils 1.50 2.0-8.3 K/CU MM Low 12-13-2016 [facility] (75368) Comment: Order Comment: Cameron: M Performed By: #### L500.0140 0, L500.24283, L500.57860, L500.93123, L550.97905 ####[address] [address]Zz# [phone] Neutrophils/100 WBC Auto (Bld) 23.0 45-75 % Low 12-13-2016 [facility] (00 000) Comment: Order Comment: Cameron: M Performed By: #### L500.0140 0, L500.67065, L500.89818, L500.84864, L550.82064 ####[address] [address]Jd# [phone] Platelet mean volume (PMV) 9.1 9.4-12.4 fL Low [facility] (07175) Comment: Order Comment: Cameron: M Performed By: #### L500.0140 0, L500.24768, L500.31164, L500.46086, L550.55087 ####[facility] HXTQOCAQWY1469 [place], [place] [address]Pa# [phone] Platelets 233 150-450 K/CU MM Normal 12-13-2016 [facility] (24630) Comment: Order Comment: Cameron: M Performed By: #### L500.0140 0, L500.88950, L500.92024, L500.09792, L550.86123 ####[facility] MFPUMRXOIX2984 [place], [place] [address]Yj# [phone] WBC (Leukocytes) 6.5 4.5-11.0 K/CU MM Normal 12-13-2016 [facility] (88413) Comment: Order Comment: Cameron: M Performed By: #### L500.0140 0, L500.32433, L500.39257, L500.96229, L550.03722 ####[address] [address]Od# [phone] mrsa pcr on 2016-11 MRSA PCR NEGATIVE NEGATIVE Normal 12-08-2016 [facility] (75567) Comment: Order Comment: Cameron: M Result Comment: PLEASE NOTE: TESTING DONE BY PCR TECHNOLOGY. Performed By: #### L500.0140 0, L500.60333, L500.27286, L500.07958, L550.32113 ####[facility] MRPCUJCHTS1240 [place], [place] [address]Eg# [phone] SA PCR NEGATIVE NEGATIVE Normal 12-08-2016 [facility] (54529) Comment: Order Comment: Cameron: M Result Comment: PLEASE NOTE: TESTING DONE BY PCR TECHNOLOGY. Performed By: #### L500.0140 0, L500.36513, L500.77750, L500.35955, L550.50423 ####[facility] SE[address]RAXKFJ[address] [place] [address]Hb# [phone] gfr est on IF AMER Greater than 60 Normal 12-09-[address] [place] [address] (23191) Comment: Order Comment: Cameron: M Performed By: #### L500.0140 0, L500.71526, L500.44972, L500.88586, L550.67628 ####[facility] XAAXZJDMHR6551 [place], [place] [address]Qq# [phone] IF non-AFR AMER Greater than 60 Normal 12-09-[address] [place] [address] (66070) Comment: Order Comment: Cameron: M Performed By: #### L500.0140 0, L500.22329, L500.15500, L500.54718, L550.24317 ####[facility] FNPRWLFQFE6117 [place], [place] [address]Ow# [phone] cmp on 2016-12-08 Alanine aminotransferase (ALT) 61 13-61 IU/L Normal 12-08-2016 [facility] (00 000) Comment: Order Comment: Cameron: M Performed By: #### L500.0140 0, L500.85604, L500.16517, L500.88718, L550.54141 ####[facility] OXGKJUWKUR2847 [place], [place] [address]Tl# [phone] Albumin 4.0 3.2-5.0 GM/DL Normal 12-08-2016 [facility] (07346) Comment: Order Comment: Cameron: M Performed By: #### L500.0140 0, L500.79163, L500.62969, L500.30419, L550.73713 ####[facility] RKHOIQDVOM6375 [place], [place] [address]Wy# [phone] Albumin/Globulin Ratio 1.0 0.8-2.0 {ratio} Normal [address] [place] [address] (00 000) Comment: Order Comment: Cameron: M Performed By: #### L500.0140 0, L500.92561, L500.09556, L500.31269, L550.63081 ####[facility] AFCLVKRRLA4824 [place], [place] [address]Qu# [phone] ALK PHOS 139 45-117 U/L High 12-08-2016 [facility] (71437) Comment: Order Comment: Cameron: M Performed By: #### L500.0140 0, L500.30966, L500.93474, L500.43458, L550.77088 ####[facility] DIUSOXRRMA8087 [place], [place] [address]Od# [phone] Anion gap 5 5-16 MMOL/L Normal 12-08-2016 [facility] (34716) Comment: Order Comment: Cameron: M Performed By: #### L500.0140 0, L500.00114, L500.53107, L500.53276, L550.73483 ####[facility] CR[address]QT[address] [place] [address]Oi# [phone] BILI TOTAL 0.4 0.2-1.0 MG/DL Normal 12-08-2016 [facility] (28977) Comment: Order Comment: Cameron: M Performed By: #### L500.0140 0, L500.67422, L500.92745, L500.28857, L550.79375 ####[facility] WIVTPJERYN0611 [place], [place] [address]Kf# [phone] BUN/Creatinine Ratio 17 15-24 mg/mg Normal 7 [facility] (78980) Comment: Order Comment: Cameron: M Performed By: #### L500.0140 0, L500.25749, L500.24151, L500.62367, L550.38469 ####[facility] FZFYXAQEUQ1601 [place], [place] [address]Dk# [phone] Calcium 9.4 8.5-10.1 MG/DL Normal 12-08-2016 [facility] (51161) Comment: Order Comment: Cameron: M Performed By: #### L500.0140 0, L500.08327, L500.68793, L500.58541, L550.01115 ####[facility] PLIMUQGDZM2210 [place], [place] [address]Tv# [phone] Chloride 99 98-107 MMOL/L Normal 12-08-2016 [facility] (58683) Comment: Order Comment: Cameron: M Performed By: #### L500.0140 0, L500.28373, L500.94358, L500.20568, L550.63295 ####[facility] CTDTHPLHNW3902 [place], [place] [address]Vf# [phone] CO2 32 21-32 MMOL/L Normal 12-08-2016 [facility] (63451) Comment: Order Comment: Cameron: M Performed By: #### L500.0140 0, L500.29286, L500.64803, L500.38383, L550.26780 ####[facility] KICZORNWBH0045 [place], [place] [address]Et# [phone] Creatinine 0.784 0.670-1.170 MG/DL Normal 12-08-2016 [facility] (27556) Comment: Order Comment: Cameron: M Result Comment: Patients rec eiving either N-Acetylcysteine (NAC) orMetamizole prior to venipu ncture, may have falsely depressedresults. Performed By: #### L500.0140 0, L500.01140, L500.04578, L500.97753, L550.04323 ####[facility] SYQFNZUOXX7501 [place], [place] [address]Xd# [phone] Globulin 4.1 2.2-4.2 GM/DL Normal 12-08-2016 [facility] (90151) Comment: Order Comment: Cameron: M Performed By: #### L500.0140 0, L500.29546, L500.35541, L500.49301, L550.38599 ####[facility] YOBLJADQNY6165 [place], [place] [address]Cz# [phone] Glucose mass conc 89 70-100 MG/DL Normal 12-08-2016 [facility] (12102) Comment: Order Comment: Cameron: M Result Comment: 52-332-Mzbtj l Fasting; 389-173-Lwldturi Fasting; greaterthan 126 on more than one result- Diabetes. ADA guidelines Performed By: #### L500.0140 0, L500.20004, L500.84368, L500.90636, L550.32159 ####[facility] AUTRUWWTAV0976 [place], [place] [address]Wx# [phone] Potassium molar conc 4.5 3.5-5.1 MMOL/L Normal 7 [facility] (52273) Comment: Order Comment: Cameron: M Performed By: #### L500.0140 0, L500.99598, L500.26970, L500.15563, L550.29881 ####[facility] NKUJJTUJYZ7165 [place], [place] [address]Nf# [phone] Protein 8.1 6.0-8.5 GM/DL Normal 12-08-2016 [facility] (81006) Comment: Order Comment: Cameron: M Performed By: #### L500.0140 0, L500.36549, L500.00000, L500.70936, L550.87002 ####[facility] PWJBMJNMZQ9803 [place], [place] [address]Np# [phone] SGOT (AST) 42 8-34 U/L High 12-08-2016 [facility] (93430) Comment: Order Comment: Cameron: M Performed By: #### L500.0140 0, L500.89453, L500.54736, L500.98943, L550.54943 ####[facility] AFIJUNXHAH1118 [place], [place] [address]Dh# [phone] Sodium 136 136-145 MMOL/L Normal 12-08-2016 [facility] (24583) Comment: Order Comment: Cameron: M Performed By: #### L500.0140 0, L500.01930, L500.91394, L500.04473, L550.22507 ####[facility] VLDBRKXGLJ3976 [place], [place] [address]Jr# [phone] Urea nitrogen 13 7-26 MG/DL Normal 12-08-2016 [facility] (97353) Comment: Order Comment: Cameron: M Performed By: #### L500.0140 0, L500.67998, L500.82451, L500.60767, L550.41099 ####[facility] OTJTVKLLHB1742 [place], [place] [address]Ml# [phone] cbc w/diff on 12-08 BASO ABS 0.10 0-0.2 K/CU MM Normal 12-08-2016 [facility] (81274) Comment: Order Comment: Cameron: M Performed By: #### L500.0140 0, L500.93836, L500.15659, L500.48433, L550.45446 ####[facility] AJCAJBUVAI6565 [place], [place] [address]Zu# [phone] Basophils/100 WBC Auto (Bld) 1.1 0-2 % Normal 0 12-08-2016 [facility] (14196) Comment: Order Comment: Cameron: M Performed By: #### L500.0140 0, L500.73300, L500.29345, L500.73669, L550.97947 ####[facility] GVKGHLBPIW4669 [place], [place] [address]Wi# [phone] EOS ABS 0.30 0-0.5 K/CU MM Normal 12-08-2016 [facility] (32546) Comment: Order Comment: Cameron: M Performed By: #### L500.0140 0, L500.65205, L500.73621, L500.96954, L550.77555 ####[facility] FZJWMXLJKX2555 [place], [place] [address]Ly# [phone] Eosinophils/100 leukocytes 3.3 0-5 % Normal [facility] (20478) Comment: Order Comment: Cameron: M Performed By: #### L500.0140 0, L500.18075, L500.04361, L500.44901, L550.12292 ####[facility] EEGDWIIFPC8120 [place], [place] [address]Tz# [phone] Erythrocyte distribution 13.3 11-14.5 % Normal 12-08 [facility] width Auto Ratio (RBC) [place] (00018) Comment: Order Comment: Cameron: M Performed By: #### L500.0140 0, L500.64222, L500.33496, L500.36635, L550.07804 ####[facility] [id number] [place], [place] [address]Tt# [phone] Erythrocytes (RBC) 4.66 4.50-6.00 M/CU MM Normal 12-08-2016 [facility] (00 000) Comment: Order Comment: Cameron: M Performed By: #### L500.0140 0, L500.86935, L500.93072, L500.83432, L550.94140 ####[facility] [id number] [place], [place] [address]Rp# [phone] Erythrocytes (RBC) 0.0 Less than 1 % Normal [address] [place] [address] ([address]) Comment: Order Comment: Cameron: M Performed By: #### L500.0140 0, L500.22301, L500.36790, L500.18190, L550.42874 ####[facility] [id number] [place], [place] [address]Lh# [phone] Hematocrit (HCT) 39.8 41.0-53.0 % Low 12-08-2016 [facility] ([address]) Comment: Order Comment: Cameron: M Performed By: #### L500.0140 0, L500.57013, L500.72524, L500.69470, L550.09113 ####[facility] [id number] [place], [place] [address]Ut# [phone] Hemoglobin mass conc (Bld) 13.1 13.5-17.5 G/DL Low [facility] (00 000) Comment: Order Comment: Cameron: M Performed By: #### L500.0140 0, L500.27703, L500.05928, L500.74300, L550.25402 ####[facility] [id number] [place], [place] [address]Zj# [phone] IMMATR GRAN ABS 0.00 Less than 2 K/CU MM Normal 12-08-2016 [facility] (00 000) Comment: Order Comment: Cameron: M Performed By: #### L500.0140 0, L500.84813, L500.67212, L500.58470, L550.34558 ####[address] [id number] [place], [place] [address]Jo# [phone] IMMATURE GRAN % 0.5 Less than 2 % Normal 12-08-2016 [facility] (23447) Comment: Order Comment: Cameron: M Performed By: #### L500.0140 0, L500.05791, L500.61004, L500.58048, L550.86107 ####[facility] [id number] [place], [place] [address]Nm# [phone] Lymphocytes 3.90 0.9-4.4 K/CU MM Normal 12-08-2016 [facility] ([address]31) Comment: Order Comment: Cameron: M Performed By: #### L500.0140 0, L500.42577, L500.59546, L500.40281, L550.30463 ####[facility] [id number] [place] [address]At# [phone] Lymphocytes/100 leukocytes 52.3 20-40 % High [facility] (62925) Comment: Order Comment: Cameron: M Performed By: #### L500.0140 0, L500.62705, L500.62763, L500.34274, L550.57790 ####[facility] [id number] [place], [place] [address]Yc# [phone] MCHC mass conc (RBC) 32.9 32.0-36.0 GM/DL Normal 7 [facility] (00 000) Comment: Order Comment: Cameron: M Performed By: #### L500.0140 0, L500.31098, L500.96300, L500.02610, L550.23580 ####[facility] [id number] [place], [place] [address]Ub# [phone] MCV 85.4 80.0-99.0 fl Normal 12-08-2016 [facility] ([address]32) Comment: Order Comment: Cameron: M Performed By: #### L500.0140 0, L500.94891, L500.67015, L500.82997, L550.26542 ####[facility] [id number] [place], [place] [address]Mo# [phone] MONO ABS 0.70 0.1-1.1 K/CU MM Normal 12-08-2016 [facility] (51241) Comment: Order Comment: Cameron: M Performed By: #### L500.0140 0, L500.15589, L500.84417, L500.09830, L550.56541 ####[facility] [id number] [place], [place] [address]Zd# [phone] Monocytes/100 leukocytes 9.6 2-10 % Normal 12-08 [facility] (76862) Comment: Order Comment: Cameron: M Performed By: #### L500.0140 0, L500.20242, L500.44821, L500.92504, L550.33809 ####[facility] [id number] [place], [place] [address]Oa# [phone] Neutrophils 2.50 2.0-8.3 K/CU MM Normal 12-08-2016 [facility] (27848) Comment: Order Comment: Cameron: M Performed By: #### L500.0140 0, L500.31990, L500.70513, L500.39228, L550.93640 ####[facility] MCCCQUCORL3639 [place], [place] [address]Sk# [phone] Neutrophils/100 WBC Auto (Bld) 33.2 45-75 % Low 12-08-2016 [facility] (00 000) Comment: Order Comment: Cameron: M Performed By: #### L500.0140 0, L500.08443, L500.14050, L500.45442, L550.68003 ####[facility] AKAGYVQGGU3903 [place], [place] [address]Dn# [phone] Platelet mean volume (PMV) 8.4 9.4-12.4 fL Low [facility] (33758) Comment: Order Comment: Cameron: M Performed By: #### L500.0140 0, L500.23213, L500.75633, L500.03020, L550.90776 ####[facility] SORYDVFOVB7652 [place], [place] [address]Dm# [phone] Platelets 309 150-450 K/CU MM Normal 12-08-2016 [facility] [place] ([address]305) Comment: Order Comment: Cameron: M Performed By: #### L500.0140 0, L500.83295, L500.43775, L500.18381, L550.63194 ####[facility] MRNMVCNANC5323 [place], [place] [address]Qo# [phone] WBC (Leukocytes) 7.5 4.5-11.0 K/CU MM Normal 12-08-2016 [facility] [place] (42858) Comment: Order Comment: Cameron: M Performed By: #### L500.0140 0, L500.41990, L500.24347, L500.23737, L550.09508 ####[facility] FQYMEFGMSY2626 [place], [place] [address]Rz# [phone] gfr est on IF AMER Greater than 60 Normal 12-07-[address] [place] [address] ([address]47) Comment: Order Comment: Cameron: M Performed By: #### L500.0140 0, L500.47005, L500.61264, L500.29147, L550.16605 ####[facility] GDRTFATTPD7349 [place], [place] [address]Ky# [phone] IF non-AFR AMER Greater than 60 Normal 12-07-[address] [place] [address] ([address]) Comment: Order Comment: Cameron: M Performed By: #### L500.0140 0, L500.84759, L500.88948, L500.65723, L550.34565 ####[facility] CABLNRBOSU[address] [place] [address]Pa# [phone] cmp on 2016-12-06 Alanine aminotransferase (ALT) 52 13-61 IU/L Normal 12-06-2016 [facility] (00 000) Comment: Order Comment: Cameron: M Performed By: #### L500.0140 0, L500.06876, L500.97152, L500.26192, L550.42872 ####[facility] PMSALQUYPO6537 [place], [place] [address]Tu# [phone] Albumin 3.2 3.2-5.0 GM/DL Normal 12-06-2016 [facility] (64668) Comment: Order Comment: Cameron: M Performed By: #### L500.0140 0, L500.75565, L500.45441, L500.06461, L550.54516 ####[facility] FIBDGBPSWK0854 [place], [place] [address]Oy# [phone] Albumin/Globulin Ratio 0.9 0.8-2.0 {ratio} Normal [address] [place] [address] (00 000) Comment: Order Comment: Cameron: M Performed By: #### L500.0140 0, L500.44487, L500.04578, L500.31840, L550.64312 ####[facility] RAZKJSXWQL5709 [place], [place] [address]Cg# [phone] ALK PHOS 127 45-117 U/L High 12-06-2016 [facility] (55228) Comment: Order Comment: Cameron: M Performed By: #### L500.0140 0, L500.00830, L500.36404, L500.40682, L550.70792 ####[facility] PEWQKELXNJ9172 [place], [place] [address]Vp# [phone] Anion gap 9 5-16 MMOL/L Normal 12-06-2016 [facility] (68817) Comment: Order Comment: Cameron: M Performed By: #### L500.0140 0, L500.67269, L500.25966, L500.42231, L550.40587 ####[facility] SLGRPQGJKR5290 [place], [place] [address]Ks# [phone] BILI TOTAL 0.4 0.2-1.0 MG/DL Normal 12-06-2016 [facility] (89174) Comment: Order Comment: Cameron: M Performed By: #### L500.0140 0, L500.99809, L500.84937, L500.43866, L550.77515 ####[facility] ZPFDQINMJK5131 [place], [place] [address]Ng# [phone] BUN/Creatinine Ratio 23 15-24 mg/mg Normal 7 [facility] (12627) Comment: Order Comment: Cameron: M Performed By: #### L500.0140 0, L500.71629, L500.53725, L500.88404, L550.70066 ####[facility] HBFSNLUXKI4186 [place], [place] [address]Bf# [phone] Calcium 9.2 8.5-10.1 MG/DL Normal 12-06-2016 [facility] (23116) Comment: Order Comment: Cameron: M Performed By: #### L500.0140 0, L500.33324, L500.47263, L500.47109, L550.90426 ####[facility] DLMNEGPFHF1138 [place], [place] [address]Wz# [phone] Chloride 101 98-107 MMOL/L Normal 12-06-2016 [facility] (13633) Comment: Order Comment: Cameron: M Performed By: #### L500.0140 0, L500.99221, L500.79318, L500.65556, L550.64564 ####[facility] ZOMXXNOUSX2467 [place], [place] [address]Of# [phone] CO2 28 21-32 MMOL/L Normal 12-06-2016 [facility] (87399) Comment: Order Comment: Cameron: M Performed By: #### L500.0140 0, L500.38096, L500.69463, L500.89932, L550.83192 ####[facility] YWHCIDLRVT6748 [place], [place] [address]Dg# [phone] Creatinine 0.726 0.670-1.170 MG/DL Normal 12-06-2016 [facility] (58276) Comment: Order Comment: Cameron: M Result Comment: Patients rec eiving either N-Acetylcysteine (NAC) orMetamizole prior to venipu ncture, may have falsely depressedresults. Performed By: #### L500.0140 0, L500.83350, L500.06345, L500.21094, L550.15384 ####[facility] OUXEZEMNJR5751 [place], [place] [address]Uu# [phone] Globulin 3.5 2.2-4.2 GM/DL Normal 12-06-2016 [facility] (32396) Comment: Order Comment: Cameron: M Performed By: #### L500.0140 0, L500.33859, L500.25506, L500.56057, L550.87448 ####[facility] LYAAGVAVNB6895 [place], [place] [address]Lr# [phone] Glucose mass conc 85 70-100 MG/DL Normal 12-06-2016 [facility] (01331) Comment: Order Comment: Cameron: M Result Comment: 01-493-Ktcmi l Fasting; 516-491-Xqeveagq Fasting; greaterthan 126 on more than one result- Diabetes. ADA guidelines Performed By: #### L500.0140 0, L500.12500, L500.79613, L500.89423, L550.28336 ####[facility] ORVJANIABA7323 [place], [place] [address]In# [phone] Potassium molar conc 4.4 3.5-5.1 MMOL/L Normal 7 [facility] (01834) Comment: Order Comment: Cameron: M Performed By: #### L500.0140 0, L500.19797, L500.66460, L500.07611, L550.74559 ####[facility] RKMEECRFQK8548 [place], [place] [address]Jk# [phone] Protein 6.7 6.0-8.5 GM/DL Normal 12-06-2016 [facility] (22379) Comment: Order Comment: Cameron: M Performed By: #### L500.0140 0, L500.38666, L500.12956, L500.24207, L550.40246 ####[facility] RYCRTKNHNX3517 [place], [place] [address]An# [phone] SGOT (AST) 37 8-34 U/L High 12-06-2016 [facility] (02779) Comment: Order Comment: Cameron: M Performed By: #### L500.0140 0, L500.88491, L500.35989, L500.92595, L550.90003 ####[facility] KUWSDSNXLI2564 [place], [place] [address]Xo# [phone] Sodium 138 136-145 MMOL/L Normal 12-06-2016 [facility] (71306) Comment: Order Comment: Cameron: M Performed By: #### L500.0140 0, L500.73493, L500.24075, L500.20782, L550.72223 ####[place] [address] [place], [place] [address]Lp# [phone] Urea nitrogen 17 7-26 MG/DL Normal 12-06-2016 [facility] (79683) Comment: Order Comment: Cameron: M Performed By: #### L500.0140 0, L500.83368, L500.15658, L500.22452, L550.03557 ####[address] [address]Yz# [phone] cbc w/diff on 12-06 EOS ABS 0.29 0-0.5 K/CU MM Normal 12-06-2016 [facility] (86633) Comment: Order Comment: Cameron: M Performed By: #### L500.0140 0, L500.01552, L500.25980, L500.37306, L550.76237 ####[place] [address] [place], [place] [address]Ex# [phone] Eosinophils/100 leukocytes 4.0 0-5 % Normal [facility] (63189) Comment: Order Comment: Cameron: M Performed By: #### L500.0140 0, L500.21356, L500.22418, L500.46760, L550.49947 ####[facility] [place], [place] [address]Gz# [phone] Lymphocytes 3.96 0.9-4.4 K/CU MM Normal 12-06-2016 [facility] (19371) Comment: Order Comment: Cameron: M Performed By: #### L500.0140 0, L500.69145, L500.14759, L500.73632, L550.31932 ####[address] [address]Au# [phone] Lymphocytes PRESENT Normal 12-06-2016 [facility] (85262) Comment: Order Comment: Cameron: M Performed By: #### L500.0140 0, L500.07322, L500.63045, L500.19447, L550.71888 ####[address] [address]Pw# [phone] Lymphocytes/100 leukocytes 55.0 20-40 % High [facility] (80942) Comment: Order Comment: Cameron: M Performed By: #### L500.0140 0, L500.27378, L500.54353, L500.67141, L550.50179 ####[address] [address]Bj# [phone] MONO ABS 0.72 0.1-1.1 K/CU MM Normal 12-06-2016 [facility] (13255) Comment: Order Comment: Cameron: M Performed By: #### L500.0140 0, L500.52893, L500.79366, L500.99578, L550.59798 ####[address] [address]Zc# [phone] Monocytes/100 leukocytes 10.0 2-10 % Normal 12-06 [facility] (85822) Comment: Order Comment: Cameron: M Performed By: #### L500.0140 0, L500.60877, L500.98224, L500.34352, L550.12590 ####[address] [address]Ui# [phone] Neutrophils 2.23 2.0-8.3 K/CU MM Normal 12-06-2016 [facility] (38641) Comment: Order Comment: Cameron: M Performed By: #### L500.0140 0, L500.95701, L500.22832, L500.72750, L550.17845 ####[address] [address]Zz# [phone] Neutrophils/100 WBC Auto (Bld) 31.0 45-75 % Low 12-06-2016 [facility] (00 000) Comment: Order Comment: Cameron: M Performed By: #### L500.0140 0, L500.15658, L500.34065, L500.70922, L550.04767 ####[facility] SBIQFJFWRY2720 [place], [place] [address]Mz# [phone] PLT EST ADEQUATE Normal 12-06-2016 [facility] (13946) Comment: Order Comment: Cameron: M Performed By: #### L500.0140 0, L500.66805, L500.05740, L500.15503, L550.65874 ####[facility] NXRWGQNSUE2941 [place], [place] [address]Dn# [phone] POLY 1+ Normal 12-06-2016 [facility] (86723) Comment: Order Comment: Cameron: M Performed By: #### L500.0140 0, L500.57515, L500.71636, L500.45459, L550.06978 ####[facility] QQOFDITFFR7612 [place], [place] [address]Ht# [phone] Erythrocyte distribution 13.2 11-14.5 % Normal 12-06 [facility] width Auto Ratio (RBC) [place] (55635) Comment: Order Comment: Cameron: M Performed By: #### L500.0140 0, L500.72589, L500.33293, L500.15904, L550.72634 ####[facility] WVBFFPQXJC6906 [place], [place] [address]Ql# [phone] Erythrocytes (RBC) 0.0 Less than 1 % Normal 7 [facility] (73280) Comment: Order Comment: Cameron: M Performed By: #### L500.0140 0, L500.65227, L500.69541, L500.27336, L550.30048 ####[facility] RQCKKNYWDG9259 [place], [place] [address]Hg# [phone] Erythrocytes (RBC) 4.25 4.50-6.00 M/CU MM Low 12-06-2016 [facility] (15796) Comment: Order Comment: Cameron: M Performed By: #### L500.0140 0, L500.66039, L500.31737, L500.98010, L550.43825 ####[facility] QKQPDULOUD3436 [place], [place] [address]Xe# [phone] Hematocrit (HCT) 36.3 41.0-53.0 % Low 12-06-2016 [facility] (82396) Comment: Order Comment: Cameron: M Performed By: #### L500.0140 0, L500.17913, L500.29622, L500.36714, L550.61529 ####[facility] VQAMUJZSHT5792 [place], [place] [address]Om# [phone] Hemoglobin mass conc (Bld) 12.1 13.5-17.5 G/DL Low [facility] (00 000) Comment: Order Comment: Cameron: M Performed By: #### L500.0140 0, L500.49408, L500.69203, L500.86443, L550.40315 ####[facility] LGWLRCAERP9098 [place], [place] [address]Cj# [phone] MCHC mass conc (RBC) 33.3 32.0-36.0 GM/DL Normal 7 [facility] (00 000) Comment: Order Comment: Cameron: M Performed By: #### L500.0140 0, L500.35930, L500.32784, L500.16522, L550.56229 ####[facility] QSGPFPBNSL4926 [place], [place] [address]Gy# [phone] MCV 85.4 80.0-99.0 fl Normal 12-06-2016 [facility] (33650) Comment: Order Comment: Cameron: M Performed By: #### L500.0140 0, L500.37907, L500.78167, L500.86498, L550.12810 ####[facility] GASXKQIZCL4223 [place], [place] [address]Qg# [phone] Platelet mean volume (PMV) 9.1 9.4-12.4 fL Low [facility] (70209) Comment: Order Comment: Cameron: M Performed By: #### L500.0140 0, L500.44389, L500.37536, L500.75611, L550.88835 ####[facility] FPWBCXUPJS7595 [place], [place] [address]Mk# [phone] Platelets 259 150-450 K/CU MM Normal 12-06-2016 [facility] (93115) Comment: Order Comment: Cameron: M Performed By: #### L500.0140 0, L500.29503, L500.87260, L500.67674, L550.00557 ####[facility] QNGEBOLWVT5635 [place], [place] [address]Ms# [phone] WBC (Leukocytes) 7.2 4.5-11.0 K/CU MM Normal 12-06-2016 [facility] (73406) Comment: Order Comment: Cameron: M Performed By: #### L500.0140 0, L500.38819, L500.46628, L500.15150, L550.65308 ####[facility] GIQQFNDTSU3921 [place], [place] [address]Eb# [phone] hcv genotyping on 2 HCV GENOTYPE TNP Normal 11-26-2016 [facility] (95583) Comment: Order Comment: Cameron: M Result Comment: Specimen has insufficient hepatitis C virus RNA to obtaingenotyping results. Th is genotyping assay should only beused for known HCV positive patients with H CV RNA levelsabove 1000 IU/mL. Performed By: #### L500.0140 0, L500.81492, L500.27339, L500.44148, L550.45929 ####[facility] XWEDWNXADT0282 [place], [place] [address]Qm# [phone] NOTE HCV GTYPE: TNP Normal 11-26-2016 [facility] (68566) Comment: Order Comment: Cameron: M Result Comment: This test wa s developed and its performance characteristicsdetermined by [facility]. It has not been cleared or approvedby the U.S. Food and Drug Admin istration.The FDA has determined that such clearance or approval isnot necessary. This test is used for clinical purposes. Itshould not be re garded as investigational or for research.Performed At: [facility] [address] [id number] Joaquín Dougherty [id number] Performed By: #### L500.0140 0, L500.53448, L500.77481, L500.58484, L550.10926 ####[facility] TAWAIHUCAD4965 [place], [place] [address]Bc# [phone] gfr est on IF AMER Greater than 60 Normal 11-27-[address] [place] [address] (20589) Comment: Order Comment: Cameron: M Performed By: #### L500.0140 0, L500.89093, L500.50977, L500.62440, L550.81299 ####[facility] AGNCSISNRH6423 [place], [place] [address]Xz# [phone] IF non-AFR AMER Greater than 60 Normal 11-27-[address] [place] [address] (65969) Comment: Order Comment: Cameron: M Performed By: #### L500.0140 0, L500.71421, L500.29013, L500.02907, L550.23943 ####[facility] LLWXWQXPPH1285 [place], [place] [address]Bp# [phone] cmp on 2016-11-26 Alanine aminotransferase (ALT) 37 13-61 IU/L Normal 11-26-2016 [facility] (00 000) Comment: Order Comment: Cameron: M Performed By: #### L500.0140 0, L500.24431, L500.17596, L500.90746, L550.60416 ####[facility] JJKVDBDWDY4686 [place], [place] [address]Qu# [phone] Albumin 2.9 3.2-5.0 GM/DL Low 11-26-2016 [facility] (40737) Comment: Order Comment: Cameron: M Performed By: #### L500.0140 0, L500.67892, L500.64066, L500.54492, L550.66760 ####[facility] ESQQDUATAM3854 [place], [place] [address]Nq# [phone] Albumin/Globulin Ratio 0.9 0.8-2.0 {ratio} Normal 017 [facility] (00 000) Comment: Order Comment: Cameron: M Performed By: #### L500.0140 0, L500.57332, L500.59922, L500.83346, L550.20945 ####[facility] ISSHVZTTNK0272 [place], [place] [address]Pb# [phone] ALK PHOS 127 45-117 U/L High 11-26-2016 [facility] (01037) Comment: Order Comment: Cameron: M Performed By: #### L500.0140 0, L500.81914, L500.37956, L500.22821, L550.75967 ####[facility] JKSBGKFGDX7082 [place], [place] [address]Bq# [phone] Anion gap 7 5-16 MMOL/L Normal 11-26-2016 [facility] (71440) Comment: Order Comment: Cameron: M Performed By: #### L500.0140 0, L500.55131, L500.81967, L500.26122, L550.16128 ####[facility] AEYRDNWABM8656 [place], [place] [address]Yv# [phone] BILI TOTAL 0.3 0.2-1.0 MG/DL Normal 11-26-2016 [facility] (89287) Comment: Order Comment: Cameron: M Performed By: #### L500.0140 0, L500.86970, L500.62474, L500.96822, L550.49088 ####[facility] GGAWSLJNJP1061 [place], [place] [address]Jh# [phone] BUN/Creatinine Ratio 12 15-24 mg/mg Low 7 [facility] (79378) Comment: Order Comment: Cameron: M Performed By: #### L500.0140 0, L500.41928, L500.14110, L500.30580, L550.08444 ####[facility] AJDEVMECZA3175 [place], [place] [address]Tq# [phone] Calcium 8.5 8.5-10.1 MG/DL Normal 11-26-2016 [facility] (96127) Comment: Order Comment: Cameron: M Performed By: #### L500.0140 0, L500.90807, L500.60250, L500.85257, L550.38112 ####[facility] LUVDPYQCAX3657 [place], [place] [address]Tl# [phone] Chloride 105 98-107 MMOL/L Normal 11-26-2016 [facility] (20360) Comment: Order Comment: Cameron: M Performed By: #### L500.0140 0, L500.96862, L500.90323, L500.96002, L550.01823 ####[facility] QDSUFLBVMB8752 [place], [place] [address]Ba# [phone] CO2 28 21-32 MMOL/L Normal 11-26-2016 [facility] (39947) Comment: Order Comment: Cameron: M Performed By: #### L500.0140 0, L500.79977, L500.96038, L500.90591, L550.89505 ####[facility] PVBYZXZQPN8950 [place], [place] [address]Hr# [phone] Creatinine 0.646 0.670-1.170 MG/DL Low 11-26-2016 [facility] (26362) Comment: Order Comment: Cameron: M Result Comment: Patients rec eiving either N-Acetylcysteine (NAC) orMetamizole prior to venipu ncture, may have falsely depressedresults. Performed By: #### L500.0140 0, L500.86217, L500.25542, L500.98702, L550.97371 ####[facility] TTEMGMPJJL7443 [place], [place] [address]Kj# [phone] Globulin 3.1 2.2-4.2 GM/DL Normal 11-26-2016 [facility] (27674) Comment: Order Comment: Cameron: M Performed By: #### L500.0140 0, L500.63371, L500.27669, L500.78427, L550.28431 ####[facility] HSTRNKCVDQ9586 [place], [place] [address]Li# [phone] Glucose mass conc 91 70-100 MG/DL Normal 11-26-2016 [facility] (01730) Comment: Order Comment: Cameron: M Result Comment: 03-161-Ceghh l Fasting; 531-407-Aprtezuh Fasting; greaterthan 126 on more than one result- Diabetes. ADA guidelines Performed By: #### L500.0140 0, L500.50386, L500.33092, L500.89761, L550.96991 ####[facility] ACDZQSQWCP5502 [place], [place] [address]Pr# [phone] Potassium molar conc 4.0 3.5-5.1 MMOL/L Normal 7 [facility] (29864) Comment: Order Comment: Cameron: M Performed By: #### L500.0140 0, L500.51897, L500.14096, L500.29948, L550.93354 ####[facility] SMZRUXSNOV1629 [place], [place] [address]Fw# [phone] Protein 6.0 6.0-8.5 GM/DL Normal 11-26-2016 [facility] (52302) Comment: Order Comment: Cameron: M Performed By: #### L500.0140 0, L500.03812, L500.86814, L500.83177, L550.22610 ####[facility] LARHKMCIYU3862 [place], [place] [address]Vi# [phone] SGOT (AST) 27 8-34 U/L Normal 11-26-2016 [facility] (85972) Comment: Order Comment: Cameron: M Performed By: #### L500.0140 0, L500.86357, L500.94212, L500.94615, L550.78693 ####[facility] ZDJMORCQEG7182 [place], [place] [address]Xb# [phone] Sodium 140 136-145 MMOL/L Normal 11-26-2016 [facility] (92736) Comment: Order Comment: Cameron: M Performed By: #### L500.0140 0, L500.79716, L500.96210, L500.33157, L550.52158 ####[facility] JWSQQTHWHS4262 [place], [place] [address]Zo# [phone] Urea nitrogen 8 7-26 MG/DL Normal 11-26-2016 [facility] (92435) Comment: Order Comment: Cameron: M Performed By: #### L500.0140 0, L500.53110, L500.21567, L500.73167, L550.64731 ####[facility] [id number] [place], [place] [address]Zq# [phone] cbc w/diff on 11-26 BASO ABS 0.10 0-0.2 K/CU MM Normal 11-26-2016 [facility] (28899) Comment: Order Comment: Cameron: M Performed By: #### L500.0140 0, L500.87560, L500.16684, L500.30333, L550.69087 ####[facility] [id number] [place], [place] [address]Ya# [phone] Basophils/100 WBC Auto (Bld) 1.0 0-2 % Normal 0 11-26-2016 [facility] (01655) Comment: Order Comment: Cameron: M Performed By: #### L500.0140 0, L500.01360, L500.81000, L500.02799, L550.85343 ####[address] [address]Fz# [phone] EOS ABS 0.50 0-0.5 K/CU MM Normal 11-26-2016 [facility] (22396) Comment: Order Comment: Cameron: M Performed By: #### L500.0140 0, L500.01340, L500.40170, L500.16667, L550.72787 ####[address] [address]Fs# [phone] Eosinophils/100 leukocytes 11.0 0-5 % [facility] (66872) Comment: Order Comment: Cameron: M Performed By: #### L500.0140 0, L500.29764, L500.27770, L500.68056, L550.98827 ####[address] [address]Of# [phone] IMMATR GRAN ABS 0.00 Less than 2 K/CU MM Normal 11-26-2016 [facility] (00 000) Comment: Order Comment: Cameron: M Performed By: #### L500.0140 0, L500.11507, L500.46321, L500.60774, L550.77205 ####[address] [address]Ic# [phone] IMMATURE GRAN % 0.8 Less than 2 % Normal 11-26-2016 [facility] ([address]371) Comment: Order Comment: Cameron: M Performed By: #### L500.0140 0, L500.35900, L500.08775, L500.30295, L550.17300 ####[facility] [place], [place] [address]Vx# [phone] Lymphocytes PRESENT Normal 11-26-2016 [facility] (17124) Comment: Order Comment: Cameron: M Performed By: #### L500.0140 0, L500.16782, L500.62161, L500.87553, L550.08532 ####[address] [address]Sz# [phone] Lymphocytes 2.30 0.9-4.4 K/CU MM Normal 11-26-2016 [facility] (61388) Comment: Order Comment: Cameron: M Performed By: #### L500.0140 0, L500.90486, L500.24911, L500.01586, L550.71593 ####[address] [address]Wu# [phone] Lymphocytes/100 leukocytes 47.9 20-40 % High [facility] (87239) Comment: Order Comment: Cameron: M Performed By: #### L500.0140 0, L500.53870, L500.79724, L500.89290, L550.53388 ####[address] [place], [place] [address]Wi# [phone] MONO ABS 0.30 0.1-1.1 K/CU MM Normal 11-26-2016 [facility] ([address]) Comment: Order Comment: Cameron: M Performed By: #### L500.0140 0, L500.99958, L500.51851, L500.44171, L550.90332 ####[address] [place], [place] [address]Wg# [phone] Monocytes/100 leukocytes 7.0 2-10 % Normal 11-26 [facility] (17642) Comment: Order Comment: Cameron: M Performed By: #### L500.0140 0, L500.58178, L500.52471, L500.99182, L550.66178 ####[facility] [id number] [place], [place] [address]Kv# [phone] Neutrophils 1.60 2.0-8.3 K/CU MM Low 11-26-2016 [facility] (58405) Comment: Order Comment: Cameron: M Performed By: #### L500.0140 0, L500.41959, L500.22732, L500.61227, L550.13870 ####[facility] H[facility] [id number] [place], [place] [address]Fe# [phone] Neutrophils/100 WBC Auto (Bld) 32.3 45-75 % Low 11-26-2016 [facility] (00 000) Comment: Order Comment: Cameron: M Performed By: #### L500.0140 0, L500.60854, L500.07125, L500.20785, L550.94542 ####[facility] VXXOQYQDIJ0292 [place], [place] [address]Up# [phone] PLT EST SLT DECREASED Normal 11-26-2016 [facility] (71988) Comment: Order Comment: Cameron: M Performed By: #### L500.0140 0, L500.15587, L500.76610, L500.73934, L550.16935 ####[facility] XFYQNGUXZL2034 [place], [place] [address]Yg# [phone] POLY 1+ Normal 11-26-2016 [facility] (17073) Comment: Order Comment: Cameron: M Performed By: #### L500.0140 0, L500.62108, L500.37889, L500.78212, L550.47277 ####[facility] DUWPOBFOYK7101 [place], [place] [address]Jg# [phone] Erythrocyte distribution 12.9 11-14.5 % Normal 11-26 [facility] width Auto Ratio (RBC) [place] (51957) Comment: Order Comment: Cameron: M Performed By: #### L500.0140 0, L500.69692, L500.70783, L500.60983, L550.46478 ####[facility] YTQWUFNNKX2183 [place], [place] [address]Lv# [phone] Erythrocytes (RBC) 3.81 4.50-6.00 M/CU MM Low 11-26-2016 [facility] (08592) Comment: Order Comment: Cameron: M Performed By: #### L500.0140 0, L500.02798, L500.90749, L500.99271, L550.57909 ####[facility] NGMLUSIWUH3402 [place], [place] [address]Em# [phone] Erythrocytes (RBC) 0.0 Less than 1 % Normal 7 [facility] (35847) Comment: Order Comment: Cameron: M Performed By: #### L500.0140 0, L500.56933, L500.60972, L500.04704, L550.98359 ####[facility] NYMMWPENAA5323 [place], [place] [address]Qs# [phone] Hematocrit (HCT) 31.9 41.0-53.0 % Low 11-26-2016 [facility] (62994) Comment: Order Comment: Cameron: M Performed By: #### L500.0140 0, L500.72720, L500.15483, L500.10665, L550.60773 ####[facility] WLXNFGXQYP6855 [place], [place] [address]Lo# [phone] Hemoglobin mass conc (Bld) 11.0 13.5-17.5 G/DL Low [facility] (00 000) Comment: Order Comment: Cameron: M Performed By: #### L500.0140 0, L500.71815, L500.37014, L500.51164, L550.15124 ####[facility] CFSAMGUZUD8728 [place], [place] [address]Rx# [phone] MCHC mass conc (RBC) 34.5 32.0-36.0 GM/DL Normal 7 [facility] (00 000) Comment: Order Comment: Cameron: M Performed By: #### L500.0140 0, L500.48041, L500.37536, L500.54272, L550.11719 ####[facility] CCBSGRJEML2150 [place], [place] [address]Gd# [phone] MCV 83.7 80.0-99.0 fl Normal 11-26-2016 [facility] (31624) Comment: Order Comment: Cameron: M Performed By: #### L500.0140 0, L500.79951, L500.35997, L500.65768, L550.22307 ####[address] [place], [place] [address]Ly# [phone] Platelet mean volume (PMV) 9.3 9.4-12.4 fL Low [facility] (92396) Comment: Order Comment: Cameron: M Performed By: #### L500.0140 0, L500.21785, L500.43252, L500.56400, L550.76970 ####[facility] IZGAOIIFYU7309 [place], [place] [address]Vi# [phone] Platelets 148 150-450 K/CU MM Low 11-26-2016 [facility] (68910) Comment: Order Comment: Cameron: M Performed By: #### L500.0140 0, L500.03290, L500.56668, L500.60616, L550.96770 ####[facility] AYEHGBDVYZ8993 [place], [place] [address]Pl# [phone] WBC (Leukocytes) 4.8 4.5-11.0 K/CU MM Normal 11-26-2016 [facility] (12336) Comment: Order Comment: Cameron: M Performed By: #### L500.0140 0, L500.82378, L500.40347, L500.49615, L550.77926 ####[facility] TVJERYUKDO0339 [place], [place] [address]Rn# [phone] gfr est on IF AMER Greater than 60 Normal 11-25-[address] [place] [address] (23504) Comment: Order Comment: Cameron: M Performed By: #### L500.0140 0, L500.20703, L500.00458, L500.73668, L550.72349 ####[facility] CCMLSPCZXA5819 [place], [place] [address]Ef# [phone] IF non-AFR AMER Greater than 60 Normal 11-25-[address] [place] [address] (80736) Comment: Order Comment: Cameron: M Performed By: #### L500.0140 0, L500.73262, L500.94981, L500.29227, L550.94425 ####[facility] JZSYZKHHJZ9157 [place], [place] [address]Ez# [phone] cmp on 2016-11-24 Alanine aminotransferase (ALT) 36 13-61 IU/L Normal 11-24-2016 [facility] (00 000) Comment: Order Comment: Cameron: M Performed By: #### L500.0140 0, L500.43157, L500.57309, L500.31328, L550.20613 ####[facility] KPDMJLVPGH7713 [place], [place] [address]Ef# [phone] Albumin 3.1 3.2-5.0 GM/DL Low 11-24-2016 [facility] (37621) Comment: Order Comment: Cameron: M Performed By: #### L500.0140 0, L500.75661, L500.02915, L500.34515, L550.64614 ####[facility] XBKPDXUIEH3947 [place], [place] [address]Sk# [phone] Albumin/Globulin Ratio 1.0 0.8-2.0 {ratio} Normal [address] [place] [address] (00 000) Comment: Order Comment: Cameron: M Performed By: #### L500.0140 0, L500.78066, L500.28971, L500.88908, L550.18355 ####[facility] LNGRWZITPO9103 [place], [place] [address]Pt# [phone] ALK PHOS 136 45-117 U/L High 11-24-2016 [facility] (96971) Comment: Order Comment: Cameron: M Performed By: #### L500.0140 0, L500.91554, L500.41629, L500.75180, L550.99134 ####[facility] GABRRDWNMQ2930 [place], [place] [address]Ws# [phone] Anion gap 6 5-16 MMOL/L Normal 11-24-2016 [facility] (61566) Comment: Order Comment: Cameron: M Performed By: #### L500.0140 0, L500.89997, L500.02466, L500.21235, L550.30519 ####[facility] LOWXLBOYYB4745 [place], [place] [address]Bl# [phone] BILI TOTAL 0.4 0.2-1.0 MG/DL Normal 11-24-2016 [facility] (89434) Comment: Order Comment: Cameron: M Performed By: #### L500.0140 0, L500.59854, L500.93829, L500.01085, L550.60024 ####[facility] SALPFWSJFV6904 [place], [place] [address]Zw# [phone] BUN/Creatinine Ratio 12 15-24 mg/mg Low 7 [facility] (32232) Comment: Order Comment: Cameron: M Performed By: #### L500.0140 0, L500.27998, L500.85190, L500.45115, L550.69106 ####[facility] VCMYLQALLQ0054 [place], [place] [address]Ua# [phone] Calcium 8.6 8.5-10.1 MG/DL Normal 11-24-2016 [facility] (75736) Comment: Order Comment: Cameron: M Performed By: #### L500.0140 0, L500.52211, L500.68463, L500.68278, L550.48591 ####[facility] JMYAUBOTVA8377 [place], [place] [address]En# [phone] Chloride 103 98-107 MMOL/L Normal 11-24-2016 [facility] (08244) Comment: Order Comment: Cameron: M Performed By: #### L500.0140 0, L500.80809, L500.30446, L500.92082, L550.75655 ####[facility] TMCZVGGVPU1751 [place], [place] [address]Og# [phone] CO2 30 21-32 MMOL/L Normal 11-24-2016 [facility] (50485) Comment: Order Comment: Cameron: M Performed By: #### L500.0140 0, L500.83755, L500.78151, L500.24891, L550.10293 ####[facility] PRCKYHCACP9914 [place], [place] [address]Io# [phone] Creatinine 0.992 0.670-1.170 MG/DL Normal 11-24-2016 [facility] (11287) Comment: Order Comment: Cameron: M Result Comment: Patients rec eiving either N-Acetylcysteine (NAC) orMetamizole prior to venipu ncture, may have falsely depressedresults. Performed By: #### L500.0140 0, L500.39307, L500.43948, L500.01550, L550.11190 ####[facility] OPXWXGMOFS8625 [place], [place] [address]Ba# [phone] Globulin 3.2 2.2-4.2 GM/DL Normal 11-24-2016 [facility] (36532) Comment: Order Comment: Cameron: M Performed By: #### L500.0140 0, L500.93106, L500.59288, L500.31940, L550.89094 ####[facility] XVGAPBJZCM6573 [place], [place] [address]Sp# [phone] Glucose mass conc 99 70-100 MG/DL Normal 11-24-2016 [facility] (11920) Comment: Order Comment: Cameron: M Result Comment: 14-771-Fzdup l Fasting; 227-499-Mbwkioto Fasting; greaterthan 126 on more than one result- Diabetes. ADA guidelines Performed By: #### L500.0140 0, L500.48373, L500.44179, L500.82606, L550.59464 ####[facility] PRELGKHRPX3392 [place], [place] [address]Xz# [phone] Potassium molar conc 4.0 3.5-5.1 MMOL/L Normal 7 [facility] (32744) Comment: Order Comment: Cameron: M Performed By: #### L500.0140 0, L500.65736, L500.06961, L500.80074, L550.91388 ####[facility] BPFAERWNJY7207 [place], [place] [address]Lb# [phone] Protein 6.3 6.0-8.5 GM/DL Normal 11-24-2016 [facility] (45528) Comment: Order Comment: Cameron: M Performed By: #### L500.0140 0, L500.04982, L500.93958, L500.70304, L550.26655 ####[facility] KJEKNNFENL7622 [place], [place] [address]Mi# [phone] SGOT (AST) 27 8-34 U/L Normal 11-24-2016 [facility] (34934) Comment: Order Comment: Cameron: M Performed By: #### L500.0140 0, L500.93058, L500.75395, L500.91413, L550.30697 ####[facility] KCVFMXJEMN7048 [place], [place] [address]Lw# [phone] Sodium 139 136-145 MMOL/L Normal 11-24-2016 [facility] (16976) Comment: Order Comment: Cameron: M Performed By: #### L500.0140 0, L500.00231, L500.05462, L500.33237, L550.10995 ####[facility] KBNJKTZZQD8448 [place], [place] [address]Wm# [phone] Urea nitrogen 12 7-26 MG/DL Normal 11-24-2016 [facility] (13162) Comment: Order Comment: Cameron: M Performed By: #### L500.0140 0, L500.62304, L500.11886, L500.06634, L550.99539 ####[address] [place], [place] [address]Kx# [phone] cbc w/diff on 11-24 BAND % 20.0 0-7 % High 11-24-2016 [facility] (95794) Comment: Order Comment: Cameron: M Performed By: #### L500.0140 0, L500.86440, L500.24805, L500.63480, L550.66136 ####[facility] [place], [place] [address]Sp# [phone] BAND ABS 0.90 K/CU MM Normal 11-24-2016 [facility] (33079) Comment: Order Comment: Cameron: M Performed By: #### L500.0140 0, L500.63872, L500.58186, L500.78459, L550.00346 ####[facility] IKFITHPPHL6093 [place], [place] [address]Hq# [phone] EOS ABS 0.50 0-0.5 K/CU MM Normal 11-24-2016 [facility] (89356) Comment: Order Comment: Cameron: M Performed By: #### L500.0140 0, L500.12414, L500.41170, L500.83094, L550.52202 ####[facility] PHYROLNOQY3645 [place], [place] [address]Oq# [phone] Eosinophils/100 leukocytes 11.0 0-5 % High [facility] (02795) Comment: Order Comment: Cameron: M Performed By: #### L500.0140 0, L500.24868, L500.54387, L500.41127, L550.23522 ####[facility] KSSTPTIWSD[address] [place] [address]Wi# [phone] Lymphocytes PRESENT Normal 11-24-2016 [facility] (34593) Comment: Order Comment: Cameron: M Performed By: #### L500.0140 0, L500.23693, L500.88733, L500.94671, L550.51261 ####[address] [address]Va# [phone] Lymphocytes 1.98 0.9-4.4 K/CU MM Normal 11-24-2016 [facility] (20376) Comment: Order Comment: Cameron: M Performed By: #### L500.0140 0, L500.89204, L500.70917, L500.27357, L550.10255 ####[address] [place], [place] [address]Sx# [phone] Lymphocytes/100 leukocytes 44.0 20-40 % High [facility] (54364) Comment: Order Comment: Cameron: M Performed By: #### L500.0140 0, L500.43328, L500.66632, L500.47805, L550.65484 ####[address] [address]Wf# [phone] MONO ABS 0.27 0.1-1.1 K/CU MM Normal 11-24-2016 [facility] (65682) Comment: Order Comment: Cameron: M Performed By: #### L500.0140 0, L500.02469, L500.55522, L500.51279, L550.64028 ####[facility] BZIEDRKAMC3193 [place], [place] [address]Vr# [phone] Monocytes/100 leukocytes 6.0 2-10 % Normal 11-24 [facility] (27014) Comment: Order Comment: Cameron: M Performed By: #### L500.0140 0, L500.31042, L500.95582, L500.80068, L550.77138 ####[address] [place], [place] [address]Fj# [phone] Neutrophils 0.86 2.0-8.3 K/CU MM Low 11-24-2016 [facility] (51199) Comment: Order Comment: Cameron: M Performed By: #### L500.0140 0, L500.91158, L500.73961, L500.69772, L550.65772 ####[address] [place], [place] [address]Rd# [phone] Neutrophils/100 WBC Auto (Bld) 19.0 45-75 % Low 11-24-2016 [facility] (00 000) Comment: Order Comment: Cameron: M Performed By: #### L500.0140 0, L500.55670, L500.06125, L500.50575, L550.55813 ####[facility] ZRDYWHJDEJ1869 [place], [place] [address]Tr# [phone] PLT EST ADEQUATE Normal 11-24-2016 [facility] (53978) Comment: Order Comment: Cameron: M Performed By: #### L500.0140 0, L500.16531, L500.77319, L500.58175, L550.11474 ####[facility] RIZVDSFFRE4881 [place], [place] [address]Nv# [phone] POLY 1+ Normal 11-24-2016 [facility] (59994) Comment: Order Comment: Cameron: M Performed By: #### L500.0140 0, L500.33298, L500.28909, L500.58154, L550.72249 ####[facility] RKTEDNMEKN1671 [place], [place] [address]Kh# [phone] Erythrocyte distribution 13.1 11-14.5 % Normal 11-24 [facility] width Auto Ratio (RBC) [place] (02760) Comment: Order Comment: Cameron: M Performed By: #### L500.0140 0, L500.52088, L500.52638, L500.67805, L550.97094 ####[facility] FTKMHTIJGQ4173 [place], [place] [address]Fe# [phone] Erythrocytes (RBC) 3.85 4.50-6.00 M/CU MM Low 11-24-2016 [facility] (28422) Comment: Order Comment: Cameron: M Performed By: #### L500.0140 0, L500.38080, L500.02386, L500.72862, L550.55617 ####[facility] MJBXKNHOOJ1004 [place], [place] [address]Vj# [phone] Erythrocytes (RBC) 0.0 Less than 1 % Normal [address] [place] [address] ([address]) Comment: Order Comment: Cameron: M Performed By: #### L500.0140 0, L500.27177, L500.11328, L500.69460, L550.31716 ####[facility] EMKWZCYDRK4327 [place], [place] [address]To# [phone] Hematocrit (HCT) 33.0 41.0-53.0 % Low 11-24-2016 [facility] (47640) Comment: Order Comment: Cameron: M Performed By: #### L500.0140 0, L500.25903, L500.55023, L500.49626, L550.14134 ####[facility] OQRHFMAGYY3114 [place], [place] [address]He# [phone] Hemoglobin mass conc (Bld) 11.1 13.5-17.5 G/DL Low [facility] (00 000) Comment: Order Comment: Cameron: M Performed By: #### L500.0140 0, L500.20555, L500.23657, L500.36095, L550.04417 ####[facility] THRTUUMYGO9214 [place], [place] [address]Lb# [phone] MCHC mass conc (RBC) 33.6 32.0-36.0 GM/DL Normal 201 7 [facility] ( 000) Comment: Order Comment: Cameron: M Performed By: #### L500.0140 0, L500.52032, L500.30350, L500.95118, L550.92371 ####[facility] LBMPPTMGIC0573 [place], [place] [address]Gl# [phone] MCV 85.7 80.0-99.0 fl Normal 11-24-2016 [facility] (64141) Comment: Order Comment: Cameron: M Performed By: #### L500.0140 0, L500.78812, L500.73598, L500.82361, L550.83324 ####[facility] TWVZYERZFL9282 [place], [place] [address]Ko# [phone] Platelet mean volume (PMV) 9.4 9.4-12.4 fL Normal [facility] ( 000) Comment: Order Comment: Cameron: M Performed By: #### L500.0140 0, L500.15797, L500.34755, L500.73305, L550.88561 ####[facility] JFWMQQAGLJ9181 [place], [place] [address]Ik# [phone] Platelets 163 150-450 K/CU MM Normal 11-24-2016 [facility] (66015) Comment: Order Comment: Cameron: M Performed By: #### L500.0140 0, L500.78585, L500.44832, L500.94010, L550.53261 ####[facility] HKHGHYARDZ4084 [place], [place] [address]En# [phone] WBC (Leukocytes) 4.5 4.5-11.0 K/CU MM Normal 11-24-2016 [facility] [place] (55182) Comment: Order Comment: Cameron: M Performed By: #### L500.0140 0, L500.21326, L500.93022, L500.52358, L550.98457 ####[facility] DJFUZZQCNL4056 [place], [place] [address]Sb# [phone] wound culture on 13-11-27 WOUND CULTURE GRAM STAIN RARE WBC'S NO ORGANISMS N ormal 11-23-2016 [facility] SEENORGANISM 1: [facility] AUREUS,METHICILLIN ( 72006) 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 11-23-11-23-2 017 [facility] (87545) gfr est on IF AMER Greater than 60 Normal 11-23-[address] [place] [address] (47087) Comment: Order Comment: Cameron: M Performed By: #### L500.0140 0, L500.13685, L500.42915, L500.06299, L550.96428 ####[facility] YSABGJWUYU3642 [place], [place] [address]Ne# [phone] IF non-AFR AMER Greater than 60 Normal 11-23-[address] [place] [address] (31159) Comment: Order Comment: Cameron: M Performed By: #### L500.0140 0, L500.41426, L500.77183, L500.68951, L550.78075 ####[facility] DTTIZVOGXP1334 [place], [place] [address]Xx# [phone] cmp on 2016-11-22 Alanine aminotransferase (ALT) 37 13-61 IU/L Normal 11-22-2016 [facility] (00 000) Comment: Order Comment: Cameron: M Performed By: #### L500.0140 0, L500.69497, L500.84724, L500.09343, L550.53065 ####[facility] RAOFCZWMNY3038 [place], [place] [address]Rm# [phone] Albumin 3.4 3.2-5.0 GM/DL Normal 11-22-2016 [facility] (79442) Comment: Order Comment: Cameron: M Performed By: #### L500.0140 0, L500.27367, L500.34300, L500.43578, L550.67334 ####[facility] XBEWFXKTQG3228 [place], [place] [address]Fb# [phone] Albumin/Globulin Ratio 1.0 0.8-2.0 {ratio} Normal [address] [place] [address] (00 000) Comment: Order Comment: Cameron: M Performed By: #### L500.0140 0, L500.03006, L500.90483, L500.79756, L550.83815 ####[facility] FRNLNIMIOX0335 [place], [place] [address]Vl# [phone] ALK PHOS 148 45-117 U/L High 11-22-2016 [facility] (84841) Comment: Order Comment: Cameron: M Performed By: #### L500.0140 0, L500.09489, L500.91855, L500.53216, L550.90449 ####[facility] BAQXYXROJN3554 [place], [place] [address]Ei# [phone] Anion gap 5 5-16 MMOL/L Normal 11-22-2016 [facility] (21483) Comment: Order Comment: Cameron: M Performed By: #### L500.0140 0, L500.00231, L500.47162, L500.10880, L550.86296 ####[facility] AKNQMYBYII9188 [place], [place] [address]Lz# [phone] BILI TOTAL 0.4 0.2-1.0 MG/DL Normal 11-22-2016 [facility] (46236) Comment: Order Comment: Cameron: M Performed By: #### L500.0140 0, L500.32064, L500.38729, L500.17072, L550.27362 ####[facility] FYKIVPKMTT5524 [place], [place] [address]Mn# [phone] BUN/Creatinine Ratio 19 15-24 mg/mg Normal 7 [facility] (67043) Comment: Order Comment: Cameron: M Performed By: #### L500.0140 0, L500.87494, L500.96786, L500.82465, L550.88180 ####[facility] YRGMXQNKTP0778 [place], [place] [address]Ew# [phone] Calcium 9.1 8.5-10.1 MG/DL Normal 11-22-2016 [facility] (07437) Comment: Order Comment: Cameron: M Performed By: #### L500.0140 0, L500.82070, L500.15814, L500.65046, L550.44183 ####[facility] NHDDSDJWOE2220 [place], [place] [address]In# [phone] Chloride 101 98-107 MMOL/L Normal 11-22-2016 [facility] (11803) Comment: Order Comment: Cameron: M Performed By: #### L500.0140 0, L500.12147, L500.99739, L500.52232, L550.44533 ####[facility] [id number] [place], [place] [address]Kr# [phone] CO2 31 21-32 MMOL/L Normal 11-22-2016 [facility] (15245) Comment: Order Comment: Cameron: M Performed By: #### L500.0140 0, L500.48534, L500.93738, L500.93314, L550.50080 ####[facility] [id number] [place], [place] [address]Ir# [phone] Creatinine 0.738 0.670-1.170 MG/DL Normal 11-22-2016 [facility] (03082) Comment: Order Comment: Cameron: M Result Comment: Patients rec eiving either N-Acetylcysteine (NAC) orMetamizole prior to venipu ncture, may have falsely depressedresults. Performed By: #### L500.0140 0, L500.96876, L500.56306, L500.88116, L550.69709 ####[facility] [id number] [place], [place] [address]Gu# [phone] Globulin 3.3 2.2-4.2 GM/DL Normal 11-22-2016 [facility] (70044) Comment: Order Comment: Cameron: M Performed By: #### L500.0140 0, L500.90306, L500.14327, L500.72506, L550.80425 ####[facility] [id number] [place], [place] [address]Nc# [phone] Glucose mass conc 97 70-100 MG/DL Normal 11-22-2016 [facility] (77933) Comment: Order Comment: Cameron: M Result Comment: 20-920-Lmkpv l Fasting; 766-259-Mwifmaeq Fasting; greaterthan 126 on more than one result- Diabetes. ADA guidelines Performed By: #### L500.0140 0, L500.01633, L500.19604, L500.98309, L550.33864 ####[facility] [id number] [place], [place] [address]Ow# [phone] Potassium molar conc 4.1 3.5-5.1 MMOL/L Normal 7 [facility] (01769) Comment: Order Comment: Cameron: M Performed By: #### L500.0140 0, L500.81015, L500.02793, L500.95670, L550.55541 ####[facility] [id number] [place], [place] [address]Qr# [phone] Protein 6.7 6.0-8.5 GM/DL Normal 11-22-2016 [facility] (52453) Comment: Order Comment: Cameron: M Performed By: #### L500.0140 0, L500.67921, L500.73747, L500.40807, L550.21724 ####[facility] [id number] [place], [place] [address]Os# [phone] SGOT (AST) 30 8-34 U/L Normal 11-22-2016 [facility] (65295) Comment: Order Comment: Cameron: M Performed By: #### L500.0140 0, L500.19415, L500.62982, L500.77357, L550.09613 ####[facility] [id number] [place], [place] [address]Vy# [phone] Sodium 136 136-145 MMOL/L Normal 11-22-2016 [facility] (15066) Comment: Order Comment: Cameron: M Performed By: #### L500.0140 0, L500.39815, L500.91831, L500.76161, L550.60013 ####[id number] [place], [place] [address]Kc# [phone] Urea nitrogen 14 7-26 MG/DL Normal 11-22-2016 [facility] (93637) Comment: Order Comment: Cameron: M Performed By: #### L500.0140 0, L500.54389, L500.46092, L500.17867, L550.49998 ####[address] [address]Cl# [phone] cbc w/diff on 11-22 BASO ABS 0.10 0-0.2 K/CU MM Normal 11-22-2016 [facility] (32955) Comment: Order Comment: Cameron: M Performed By: #### L500.0140 0, L500.09835, L500.18585, L500.55216, L550.16219 ####[address] [address]Mk# [phone] Basophils/100 WBC Auto (Bld) 1.5 0-2 % Normal 0 11-22-2016 [facility] (63453) Comment: Order Comment: Cameron: M Performed By: #### L500.0140 0, L500.25055, L500.59113, L500.80855, L550.72685 ####[facility] [id number] [place], [place] [address]Wf# [phone] EOS ABS 0.50 0-0.5 K/CU MM Normal 11-22-2016 [facility] (05699) Comment: Order Comment: Cameron: M Performed By: #### L500.0140 0, L500.28033, L500.30005, L500.75854, L550.56787 ####[address] [address]Cu# [phone] Eosinophils/100 leukocytes 9.0 0-5 % High [facility] (32247) Comment: Order Comment: Cameron: M Performed By: #### L500.0140 0, L500.85472, L500.28993, L500.94437, L550.42826 ####[facility] ZZPYKFPWPE7670 [place], [place] [address]Sf# [phone] IMMATR GRAN ABS 0.00 Less than 2 K/CU MM Normal 11-22-2016 [facility] (00 000) Comment: Order Comment: Cameron: M Performed By: #### L500.0140 0, L500.10538, L500.29081, L500.22029, L550.61266 ####[address] [address]Ml# [phone] IMMATURE GRAN % 0.8 Less than 2 % Normal 11-22-2016 [facility] (68475) Comment: Order Comment: Cameron: M Performed By: #### L500.0140 0, L500.44553, L500.47113, L500.21218, L550.69833 ####[address] [address]Rb# [phone] Lymphocytes 2.40 0.9-4.4 K/CU MM Normal 11-22-2016 [facility] (70651) Comment: Order Comment: Cameron: M Performed By: #### L500.0140 0, L500.21552, L500.12214, L500.30862, L550.86405 ####[address] [address]Ky# [phone] Lymphocytes/100 leukocytes 46.3 20-40 % High [facility] (87396) Comment: Order Comment: Cameron: M Performed By: #### L500.0140 0, L500.75065, L500.92078, L500.18627, L550.71308 ####[address] [address]Yb# [phone] MONO ABS 0.40 0.1-1.1 K/CU MM Normal 11-22-2016 [facility] (10783) Comment: Order Comment: Cameron: M Performed By: #### L500.0140 0, L500.98565, L500.60707, L500.62873, L550.79782 ####[address] [place], [place] [address]Vj# [phone] Monocytes/100 leukocytes 7.5 2-10 % Normal 11-22 [facility] (90213) Comment: Order Comment: Cameron: M Performed By: #### L500.0140 0, L500.78864, L500.92444, L500.08997, L550.22998 ####[address] [address]Dr# [phone] NC/NC NORMOCYTIC Normal 11-22-2016 [facility] (14710) Comment: Order Comment: Cameron: M Performed By: #### L500.0140 0, L500.78904, L500.65849, L500.15582, L550.25030 ####[facility] [place], [place] [address]Pv# [phone] Neutrophils 1.80 2.0-8.3 K/CU MM Low 11-22-2016 [facility] (01329) Comment: Order Comment: Cameron: M Performed By: #### L500.0140 0, L500.05508, L500.88401, L500.91122, L550.45017 ####[facility] ERBPHKQTDV1140 [place], [place] [address]Ci# [phone] Neutrophils/100 WBC Auto (Bld) 34.9 45-75 % Low 11-22-2016 [facility] (00 000) Comment: Order Comment: Cameron: M Performed By: #### L500.0140 0, L500.77004, L500.06793, L500.87857, L550.36792 ####[facility] KEVXMBSIOP0470 [place], [place] [address]Hn# [phone] PLT EST ADEQUATE Normal 11-22-2016 [facility] (24552) Comment: Order Comment: Cameron: M Performed By: #### L500.0140 0, L500.28164, L500.21734, L500.31173, L550.55413 ####[facility] GOXWHVLOKU6017 [place], [place] [address]Wl# [phone] POLY 1+ Normal 11-22-2016 [facility] (21413) Comment: Order Comment: Cameron: M Performed By: #### L500.0140 0, L500.78512, L500.06917, L500.62401, L550.55821 ####[address] [address]Wu# [phone] Erythrocyte distribution 12.8 11-14.5 % Normal 11-22 [facility] width Auto Ratio (RBC) [facility] (20191) Comment: Order Comment: Cameron: M Performed By: #### L500.0140 0, L500.05625, L500.51042, L500.27488, L550.25686 ####[facility] LKHQYLWZVF9896 [place], [place] [address]Oi# [phone] Erythrocytes (RBC) 4.24 4.50-6.00 M/CU MM Low 11-22-2016 [facility] (94532) Comment: Order Comment: Cameron: M Performed By: #### L500.0140 0, L500.61158, L500.42154, L500.96075, L550.07643 ####[facility] TRVYDVAQDS5235 [place], [place] [address]Aq# [phone] Erythrocytes (RBC) 0.0 Less than 1 % Normal 7 [facility] [place] (56796) Comment: Order Comment: Cameron: M Performed By: #### L500.0140 0, L500.69223, L500.08959, L500.72698, L550.51668 ####[facility] DDBRTPERLE4821 [place], [place] [address]Hs# [phone] Hematocrit (HCT) 35.9 41.0-53.0 % Low 11-22-2016 [facility] (88977) Comment: Order Comment: Cameron: M Performed By: #### L500.0140 0, L500.94983, L500.91384, L500.53798, L550.04036 ####[facility] VGKYBZRJDV1427 [place], [place] [address]Wc# [phone] Hemoglobin mass conc (Bld) 12.2 13.5-17.5 G/DL Low [facility] (00 000) Comment: Order Comment: Cameron: M Performed By: #### L500.0140 0, L500.10185, L500.14367, L500.30499, L550.50343 ####[facility] QUBSFEXKNL7752 [place], [place] [address]Ns# [phone] MCHC mass conc (RBC) 34.0 32.0-36.0 GM/DL Normal 7 [facility] (00 000) Comment: Order Comment: Cameron: M Performed By: #### L500.0140 0, L500.16800, L500.37881, L500.11515, L550.62924 ####[facility] MXOSHVNNVI6165 [place], [place] [address]Qt# [phone] MCV 84.7 80.0-99.0 fl Normal 11-22-2016 [facility] (94238) Comment: Order Comment: Cameron: M Performed By: #### L500.0140 0, L500.20248, L500.49488, L500.89665, L550.73724 ####[facility] CPAUBJLDHX4997 [place], [place] [address]Ed# [phone] Platelet mean volume (PMV) 9.0 9.4-12.4 fL Low [facility] (37021) Comment: Order Comment: Cameron: M Performed By: #### L500.0140 0, L500.26343, L500.29651, L500.68983, L550.85916 ####[facility] SWVGDBMWCN5664 [place], [place] [address]Jt# [phone] Platelets 189 150-450 K/CU MM Normal 11-22-2016 [facility] (41079) Comment: Order Comment: Cameron: M Performed By: #### L500.0140 0, L500.07794, L500.65805, L500.33685, L550.51198 ####[address] [address]Nk# [phone] WBC (Leukocytes) 5.2 4.5-11.0 K/CU MM Normal 11-22-2016 [facility] (65149) Comment: Order Comment: Cameron: M Performed By: #### L500.0140 0, L500.52667, L500.83802, L500.42340, L550.22861 ####[address] [address]Br# [phone] ur drug abuse on 12-11-24 UR AMPH NEGATIVE Yifzdr=9677 Normal 11-20-2016 [facility] (08013) Comment: Order Comment: Cameron: M Performed By: #### L500.0140 0, L500.26418, L500.41442, L500.50905, L550.79960 ####[facility] VZWEGBEVSN3587 [place], [place] [address]Jr# [phone] UR ANNA NEGATIVE Pdeyzz=540 Normal 11-20-2016 [facility] (09031) Comment: Order Comment: Cameron: M Performed By: #### L500.0140 0, L500.15154, L500.43095, L500.54909, L550.27674 ####[facility] VTKHQSQHTB[address] [place] [address]Kl# [phone] UR JANIS NEGATIVE Ucuvod=354 Normal 11-20-2016 [facility] (76596) Comment: Order Comment: Cameron: M Performed By: #### L500.0140 0, L500.80726, L500.56851, L500.03994, L550.29515 ####[facility] CUUTJGFIIB3690 [place], [place] [address]Dh# [phone] UR MOY/THC NEGATIVE Cutoff=50 Normal 11-20-2016 [facility] (94445) Comment: Order Comment: Cameron: M Performed By: #### L500.0140 0, L500.50808, L500.92987, L500.83643, L550.28431 ####[address] [place], [place] [address]Qg# [phone] UR AFSHIN NEGATIVE Ceaywe=026 Normal 11-20-2016 [facility] (84871) Comment: Order Comment: Cameron: M Performed By: #### L500.0140 0, L500.31484, L500.61762, L500.96628, L550.45347 ####[facility] YHGJXAXJSA0986 [place], [place] [address]Tx# [phone] UR OPIAT POSITIVE Gbzipy=419 Normal 11-20-2016 [facility] (40076) Comment: Order Comment: Cameron: M Performed By: #### L500.0140 0, L500.23060, L500.46480, L500.10653, L550.08759 ####[facility] YUCKVIDXAH6027 [place], [place] [address]Fz# [phone] UR PCP NEGATIVE Cutoff=25 Normal 11-20-2016 [facility] (17804) Comment: Order Comment: Cameron: M Performed By: #### L500.0140 0, L500.74622, L500.29793, L500.82472, L550.55509 ####[facility] GYNPFPMCDW8723 [place], [place] [address]Jd# [phone] DRAB COMMENT Normal 11-20-2016 [facility] (01415) Comment: Order Comment: Cameron: M Result Comment: Urine Drugs of Abuse results are qualitative, providing apreliminary analytical resu lt. A positive result for anassay should be confirmed by another nonimmu nological,reference method. A negative result indicates that theassay mate rial is either not present, or present at levelsbelow the cutoff thres hold for the analytical method range(AMR) validation. Performed By: #### L500.0140 0, L500.95355, L500.76421, L500.38183, L550.59229 ####[facility] ZKONFRUPVG1875 [place], [place] [address]Wl# [phone] wsr/mod on WSR/MOD 16 0-15 MM/HR High 11-17-2016 [facility] (98522) Comment: Order Comment: Cameron: M: \ Performed By: #### L200.0720 0 ####[facility] ZIAHHYFQQH1284 [place], [place] [address]Sj# zinc on 2016-11-16 ZINC 79 56-134 ug/dL Normal 11-16-2016 [facility] (25251) Comment: Order Comment: Cameron: M Result Comment: Detection Li jesus alberto = 5Performed At: [facility] Imszpdyjge49[address] [place], [place] [address]Wslikyf Joaquín Hayden [id number] Performed By: #### L550.0740 0 ####[facility] ZUNPRCY0942 [place] [address]Hi# prealb on 2016-10-27 9 PREALB 30 20-40 MG/DL Normal 11-14-2016 [facility] (14283) Comment: Order Comment: Cameron: M Performed By: #### L500.0140 0, L500.23070, L500.55353, L500.99373, L550.89531 ####[facility] CKDFJZJFMB2413 [place], [place] [address]Gc# [phone] phos on 2016-11-14 Phosphate 4.9 2.5-4.9 MG/DL Normal 11-14-2016 [facility] (81678) Comment: Order Comment: Cameron: M Performed By: #### L500.0140 0, L500.81349, L500.10231, L500.78559, L550.75335 ####[facility] JQNNSCPXSA9627 [place], [place] [address]Jm# [phone] magnesium on 11-14 Magnesium 2.2 1.6-2.6 MG/DL Normal 11-14-2016 [facility] (47531) Comment: Order Comment: Cameron: M Performed By: #### L500.0140 0, L500.49939, L500.54796, L500.67399, L550.70449 ####[facility] SWKGGMGEFU8997 [place], [place] [address]Cy# [phone] hp.ims.con on 11-14 CONSULTATION-H&P This is a preliminary report Norm al 11-14-2016 [facility] only, as the practitioner review [facility] and authentication has not (84327) occurred. HP.IMS.CON [facility] Patient Normal 11-14-2016 [facility] Name: LINDSAY DARLING [id number] [facility] Date of : ([address]) [address] [address] Unit Number: [id number] Number: [id number] Patient Status: REG RCRAttending Doctor: Jeane Gilman DOService Date: 11/14/16 1258History of Present IllnessConsulted ProviderFiSierra murry MDHistory of Present IllnessSara is a 26 yr old male, with a history of IVDU as well as chronic Hep C (untreated), who has been transferred here from [facility] due to osteomyelitis of the rightclavicle, [...] fevers.Finally, he went to the hospital in [place], where he was taken up to the [...] fracture) MRSA wound infection.He was admitted at [place] and is now s.p removal of hardware from the right clavicle, on11/07.He was treated with IV Vanc while at [place], and a wound vac has been placed.Today, [...] IF AMER Greater than 60 Normal 11-15-[address] [place] [address] (45825) Comment: Order Comment: Cameron: M Performed By: #### L500.0140 0, L500.67350, L500.59380, L500.65311, L550.10853 ####[facility] MMKPSZQBAT1994 [place], [place] [address]Lx# [phone] IF non-AFR AMER Greater than 60 Normal 11-15-[address] [place] [address] (30688) Comment: Order Comment: Cameron: M Performed By: #### L500.0140 0, L500.00424, L500.13942, L500.40147, L550.48565 ####[facility] UIDESWQJFJ9809 [place], [place] [address]Ki# [phone] cmp on 2016-11-14 Alanine aminotransferase (ALT) 33 13-61 IU/L Normal 11-14-2016 [facility] (00 000) Comment: Order Comment: Cameron: M Performed By: #### L500.0140 0, L500.76662, L500.43663, L500.68042, L550.97855 ####[facility] DSKHRPLXVN1807 [place], [place] [address]Kf# [phone] Albumin 3.8 3.2-5.0 GM/DL Normal 11-14-2016 [facility] (76990) Comment: Order Comment: Cameron: M Performed By: #### L500.0140 0, L500.08134, L500.38976, L500.85363, L550.42386 ####[facility] QBYNDDJBEX7399 [place], [place] [address]Se# [phone] Albumin/Globulin Ratio 1.0 0.8-2.0 {ratio} Normal 017 [facility] (00 000) Comment: Order Comment: Cameron: M Performed By: #### L500.0140 0, L500.54074, L500.30350, L500.24027, L550.05681 ####[facility] JVMEBYGTYN4665 [place], [place] [address]Ow# [phone] ALK PHOS 123 45-117 U/L High 11-14-2016 [facility] (97256) Comment: Order Comment: Cameron: M Performed By: #### L500.0140 0, L500.35975, L500.56434, L500.94997, L550.08603 ####[facility] RIABAKOKNY9299 [place], [place] [address]Fv# [phone] Anion gap 8 5-16 MMOL/L Normal 11-14-2016 [facility] (32793) Comment: Order Comment: Cameron: M Performed By: #### L500.0140 0, L500.54371, L500.88801, L500.58574, L550.89908 ####[facility] VWQRETQHXB9834 [place], [place] [address]Re#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 of the accuracy or completeness of information in this document. UNRECOGNIZED CONTENT PROVIDED BELOW FOR UNRECOGNIZED SECTION No Status Records FoundNo Status Records FoundNo Status Records FoundNo Status Records FoundNo Status Records Found UNRECOGNIZED CONTENT PROVIDED BELOW FOR UNRECOGNIZED SECTION INFORMATION SOURCE DATE CREATED AUTHOR AUTHOR'S ORGANIZATIO N 10/23/2017 [facility] ation DATE CREATED AUTHOR AUTHOR'S ORGANIZATIO N 10/23/2017 [facility] DATE CREATED AUTHOR AUTHOR'S ORGANIZATIO N 11/16/2017 [facility] DATE CREATED AUTHOR AUTHOR'S ORGANIZATIO N 11/12/2018 [facility] DATE CREATED AUTHOR AUTHOR'S ORGANIZATIO N 12/29/2019 [facility] black
--- OUTSIDE RECORDS SUMMARY | 2020-02-09 16:50 | XMS RPT_ITS | CCD ---
:1990 External Reference #:[id number] Author Organization [facility] Care Team Providers Name Role Phone ALANNALISA, R Unavailable Unavailable PHYSICIAN Unavailable Unavailable Annie DIMAS Unavailable Unavailable Kim Dooley Unavailable Curtis Gilman Unavailable Unavailable Андрей Unavailable Unavailable PROVIDER Unavailable Unavailable No Unavailable Unavailable Kim Dooley Unavailable Allergies Reported Allergen Reaction(s) Severity Date of Onset Location Bee anaphylaxis Critical, Critical 09-13-2016 - [facility] (9 3195) penicillin anaphylaxis Critical, Critical 09-13-2016 [facility] (8 3037) Problems Active Problems Category Problem Name Status Date Location Fracture of upper limb Displaced fracture of Active [address] [place] [address] shaft of right Sports Medici ne and clavicle, initial Orthopaedi cs (24108) encounter for closed fracture Hepatitis Unspecified viral Active 11-12-2017 - [facility] hepatitis C without (74576) hepatic coma Sprains and strains Ulnar collateral Active 11-12-2017 - [facility] ligament sprain of (92996) left elbow, initial encounter Substance-related Nicotine dependence, Active 11-12-2017 - [facility] disorders unspecified, (18316) uncomplicated Unclassified 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 Results Result Name Value Range Unit Interpretation Flag [facility] 2019[facility] CNPN Telephone (UCWSTR) Normal 12-29-2019 [place] [facility] MARIELAAMOSENSLINDSAY ([id number]) 1990 [facility] Date Time Provider Department (79398) 12/29/19 LINETTE BRITO) [facility] During your visit today, we recorded [...] 2019-12-28 Syphilis Interp Cannot exclude recent Normal [facility] Treponemal infection if [place] (84223) specimen collected within 7 to 10 days after appearance of suspect lesions or 2 to 3 weeks after an exposure. Clinical correlation is required. Comment: Performed By: #### SYPHTX ## ## [facility] [address] [place], [place] [address] Syphilis Screen Non Reactive Non Reactive Normal 12-28-19 [facility] [place] (84266) Comment: Performed By: #### SYPHTX ## ## [facility] [address] [place], [place] [address] progress on 2019-11 PROGRESS HNO ID: [id number] Normal 12-28-2019 [place] Author: Tristan Zhang [facility] Service: ? [place] Author Type: Physician ([id number]) Type: Progress Notes Filed: 12/28/2019 10:05 AM [...] 2019-12-28 CNOV Office Visit (UCWSTR) Normal 12-28-[address] [place] [address] LINDSAY Malagon ([id number]) 1990 [facility] Date Time Provider Department ([id number]) 12/28/19 9:30 AM TRISTAN ZHANG [facility] During your visit today, we recorded [...] [A63.0] Order(s):SYPHILIS TOTAL W/REFLEX [SQSYPHTX] Order #: [id number] FUTURE CONSULT TO UROLOGY [9041] Order #: [id number]: 1 FUTURE Problem List As Of Date [...] CULTURE URINE --> Status: F Normal 11-06-2018 [facility] No growth (<1,000 CFU/ml). (89302) Comment: Order Comment: Specimen Sour ce Comment:Urine, clean catch Performed By: #### C/UR #### [facility] [address] [place] [address] drugs of abuse on Opiates, Ur Negative Normal 11-05-2018 [facility] (14427) Comment: Performed By: #### CUA2, DRG A4 #### [address] [place] [address] Phencyclidine (PCP), Ur Negative Normal 2018 [facility] (52994) Comment: Result Comment: The expected value for [...] By: #### CUA2, DRG A4 #### [address] [address] Methadone, Ur Negative Normal 11-05-2018 [facility] (90105) Comment: Performed By: #### CUA2, DRG A4 #### [address] [place] [address] Benzodiazepines, Ur Negative Normal 11-05-2018 [facility] (24124) Comment: Performed By: #### CUA2, DRG A4 #### [address] [place] [address] Cocaine, Ur Negative Normal 11-05-2018 [facility] (43415) Comment: Performed By: #### CUA2, DRG A4 #### [address] [place] [address] Amphetamines, Ur Negative Normal 11-05-2018 [facility] (20034) Comment: Performed By: #### CUA2, DRG A4 #### [address] [place] [address] Barbiturates, Ur Negative Normal 11-05-2018 [facility] (90417) Comment: Performed By: #### CUA2, DRG A4 #### [facility] [address] [place] [address] Oxycodone/Oxymorphine,Ur Negative Normal 11-05 [facility] (47013) Comment: Performed By: #### CUA2, DRG A4 #### [facility] [address] [place] [address] ct abdomen/pelvis w/o contrast on 2018-11-05 CT Abdomen/Pelvis w/o Patient Name: LINDSAY DARLING Normal 11-05-2018 [facility]rast System (22435) CT Exam Date/Time 11/05/2018 12:58:[address] Abdomen/Pelvis (No PO, No IV) Ordering Physician MD ALEXYS, [facility] Accession Number [id number] CPT4 Codes 79465 (CT Abdomen/Pelvis (No PO, No IV)) Reason [...] Appearance (U) Sl. Cloudy Normal 11-05-2018 [facility] (42588) Comment: Result Comment: Reference Ra nge: Clear Performed By: #### CUA2, DRG A4 #### [facility] [address] [place] [address] Bilirubin,Urine Negative Normal 11-05-2018 [facility] (56594) Comment: Result Comment: Reference Ra nge: Negative Performed By: #### CUA2, DRG A4 #### [facility] [address] [place] [address] Color (U) Yellow Normal 11-05-2018 [facility] (92976) Comment: Result Comment: Reference Ra nge: Lt. Yellow Performed By: #### CUA2, DRG A4 #### [address] [place] [address] Glucose Ql (U) NEG (Normal) Normal 11-05-2018 [facility] (82306) Comment: Result Comment: Reference Ra nge: Normal (<70) Performed By: #### CUA2, DRG A4 #### [address] [address] Ketone,Urine Negative Normal 11-05-2018 [facility] (37600) Comment: Result Comment: Reference Ra nge: Negative Performed By: #### CUA2, DRG A4 #### [address] [address] Leukocytes,Urine NEG Normal 11-05-2018 [facility] (59779) Comment: Result Comment: Reference Ra nge: Negative Performed By: #### CUA2, DRG A4 #### [address] [address] Nitrites,Urine NEG Normal 11-05-2018 [facility] (33915) Comment: Result Comment: Reference Ra nge: Negative Performed By: #### CUA2, DRG A4 #### [address] [place] [address] Occult Blood,Urine Negative Normal 11-05-2018 [facility] (37348) Comment: Result Comment: Reference Ra nge: Negative Performed By: #### CUA2, DRG A4 #### [address] [place] [address] pH (U) 8.0 5.0-8.0 Normal 11-05-2018 [facility] (94716) Comment: Performed By: #### CUA2, DRG A4 #### [address] [address] Protein (U) [Mass/Vol] NEG mg/dL Normal 019 [facility] (70756) Comment: Result Comment: Reference Ra nge: Negative Performed By: #### CUA2, DRG A4 #### [address] [place] [address] Specific [place],Urine 1.010 1.005-1.030 Normal 11-05 [facility] (75842) Comment: Performed By: #### CUA2, DRG A4 #### [address] [place] [address] Urobilinogen,Urine Normal (0.2) Normal 11-06-19 [facility] (06458) Comment: Result Comment: Reference Ra nge: Normal (0-1) Performed By: #### CUA2, DRG A4 #### [address] [address] basic metabolic panel on 2018-11-05 Calcium [Mass/Vol] 9.4 8.4-10.4 mg/dL Normal 11-05-2018 [facility] (68431) Comment: Performed By: #### BMP3 #### [address] [address] Anion gap [Moles/Vol] 7 Normal 11-06-19 [facility] (55697) Comment: Performed By: #### BMP3 #### [address] [address] CO2 [Moles/Vol] 30 22-30 mmol/L Normal 11-05-2018 [facility] (26947) Comment: Performed By: #### BMP3 #### [address] [place] [address] Creatinine [Mass/Vol] 0.59 0.52-1.25 mg/dL Normal 11-06-19 [facility] (75285) Comment: Performed By: #### BMP3 #### [address] [place] [address] GFR/1.73 sq M > 60.0 >60 mL/min/{1.73_m2} Normal 9 [facility] predicted among Syst em (89569) blacks MDRD (S/P/Bld) [Vol rate/Area] Comment: Performed By: #### BMP3 #### [facility] [address] [place] [address] GFR/1.73 sq M > 60.0 >60 mL/min/{1.73_m2} Normal 9 [facility] predicted among Syst em (54170) non-blacks MDRD (S/P/Bld) [Vol rate/Area] Comment: Result Comment: Source- MDRD equation with creatinine calibration to IDMS(NKDEP) eGFR not recommended for carmine g dose adjustment Performed By: #### BMP3 #### [facility] [place] [address] Glucose [Mass/Vol] 105 70-100 mg/dL High 11-05-2018 [facility] (43260) Comment: Performed By: #### BMP3 #### [facility] [place] [address] Urea nitrogen [Mass/Vol] 12 7-20 mg/dL Normal 11-05 [facility] (25064) Comment: Performed By: #### BMP3 #### [facility] [place] [address] Chloride [Moles/Vol] 101 98-107 mmol/L Normal 9 [facility] (47438) Comment: Performed By: #### BMP3 #### [facility] [address] [place] [address] Potassium [Moles/Vol] 3.9 3.5-5.1 mmol/L Normal 11-06-19 19 [facility] (82591) Comment: Performed By: #### BMP3 #### [facility] [address] [place] [address] Sodium [Moles/Vol] 137 135-145 mmol/L Normal 11-05-2018 [facility] (25896) Comment: Performed By: #### BMP3 #### [facility] [address] [place] [address], [place] [address] replaced document: (p) culture, fungus w / [id number] on 2016-12-21 GE use only - for . Invalid Interpretation 12-21-2016 - [facility] [employer] import Code 12-21-2016 [facility] and when terms are not O rthopaedics (73831) otherwise specified wound culture on 13-12-18 WOUND CULTURE GRAM STAIN Normal 12-15-2016 [facility] FEW WBC'S [place] (00 000) FEW GRAM POSITIVE COCCI FEW GRAM POSITIVE BACILLUS ORGANISM 1: DIPHTHEROIDS QUANTITATION MODERATE ID TO FOLLOW NOT VIABLE FOR SENSITIVITY Comment: Order Comment: [place]: M Performed By: #### L500.0140 0, L500.76413, L500.68325, L500.25087, L550.38708 ####[facility] [id number] [place], [place] [address]Yk# [phone] gfr est on IF AMER Greater than 60 Normal 12-16-[address] [place] [address] (96970) Comment: Order Comment: [place]: M Performed By: #### L500.0140 0, L500.00277, L500.10223, L500.91069, L550.08728 ####[facility] [id number] [place] [address]Mu# [phone] IF non-AFR AMER Greater than 60 Normal 12-16-[address] [place] [address] (87365) Comment: Order Comment: [place]: M Performed By: #### L500.0140 0, L500.38933, L500.70476, L500.37921, L550.02136 ####[facility] [id number] [place], [place] [address]Gd# [phone] cmp on 2016-12-15 Alanine aminotransferase (ALT) 45 13-61 IU/L Normal 12-15-2016 [facility] [place] (00 000) Comment: Order Comment: [place]: M Performed By: #### L500.0140 0, L500.06021, L500.93143, L500.82938, L550.77173 ####[facility] [id number] [place], [place] [address]Yq# [phone] Albumin 3.4 3.2-5.0 GM/DL Normal 12-15-2016 [facility] (81413) Comment: Order Comment: [place]: M Performed By: #### L500.0140 0, L500.70494, L500.95813, L500.01841, L550.12940 ####[facility] [id number] [place], [place] [address]Ft# [phone] Albumin/Globulin Ratio 0.9 0.8-2.0 {ratio} Normal 017 [facility] (00 000) Comment: Order Comment: [place]: M Performed By: #### L500.0140 0, L500.25861, L500.47678, L500.93075, L550.07861 ####[facility] [id number] [place], [place] [address]Gp# [phone] ALK PHOS 130 45-117 U/L High 12-15-2016 [facility] (40961) Comment: Order Comment: [place]: M Performed By: #### L500.0140 0, L500.47796, L500.92894, L500.92295, L550.11206 ####[facility] [id number] [place], [place] [address]Qy# [phone] Anion gap 9 5-16 MMOL/L Normal 12-15-2016 [facility] (49272) Comment: Order Comment: [place]: M Performed By: #### L500.0140 0, L500.07904, L500.14230, L500.45079, L550.78945 ####[facility] [id number] [place], [place] [address]Hh# [phone] BILI TOTAL 0.3 0.2-1.0 MG/DL Normal 12-15-2016 [facility] (95823) Comment: Order Comment: [place]: M Performed By: #### L500.0140 0, L500.65616, L500.09163, L500.07264, L550.40694 ####[facility] [id number] [place], [place] [address]Fw# [phone] BUN/Creatinine Ratio 18 15-24 mg/mg Normal 7 [facility] (53962) Comment: Order Comment: [place]: M Performed By: #### L500.0140 0, L500.40832, L500.56815, L500.71908, L550.27258 ####[facility] [id number] [place], [place] [address]Rk# [phone] Calcium 9.8 8.5-10.1 MG/DL Normal 12-15-2016 [facility] (15255) Comment: Order Comment: [place]: M Performed By: #### L500.0140 0, L500.73366, L500.54469, L500.31608, L550.29080 ####[facility] [id number] [place], [place] [address]Oa# [phone] Chloride 100 98-107 MMOL/L Normal 12-15-2016 [facility] (42448) Comment: Order Comment: [place]: M Performed By: #### L500.0140 0, L500.86538, L500.40926, L500.21674, L550.05120 ####[facility] [id number] [place], [place] [address]Ka# [phone] CO2 30 21-32 MMOL/L Normal 12-15-2016 [facility] (75025) Comment: Order Comment: [place]: M Performed By: #### L500.0140 0, L500.56539, L500.02591, L500.92825, L550.32760 ####[facility] [id number] [place], [place] [address]Ms# [phone] Creatinine 0.867 0.670-1.170 MG/DL Normal 12-15-2016 [facility] (03028) Comment: Order Comment: [place]: M Result Comment: Patients rec eiving either N-Acetylcysteine (NAC) orMetamizole prior to venipu ncture, may have falsely depressedresults. Performed By: #### L500.0140 0, L500.72341, L500.89486, L500.73063, L550.40628 ####[facility] [id number] [place], [place] [address]Ps# [phone] Globulin 3.6 2.2-4.2 GM/DL Normal 12-15-2016 [facility] (03851) Comment: Order Comment: [place]: M Performed By: #### L500.0140 0, L500.23829, L500.88312, L500.88208, L550.75971 ####[facility] [id number] [place], [place] [address]An# [phone] Glucose mass conc 98 70-100 MG/DL Normal 12-15-2016 [facility] (12269) Comment: Order Comment: [place]: M Result Comment: 57-999-Vqgpa l Fasting; 071-675-Tablpxkn Fasting; greaterthan 126 on more than one result- Diabetes. ADA guidelines Performed By: #### L500.0140 0, L500.98334, L500.06942, L500.02790, L550.36387 ####[facility] [id number] [place], [place] [address]Xb# [phone] Potassium molar conc 4.3 3.5-5.1 MMOL/L Normal 7 [facility] (00918) Comment: Order Comment: [place]: M Performed By: #### L500.0140 0, L500.34017, L500.29070, L500.66689, L550.20589 ####[facility] [id number] [place], [place] [address]Af# [phone] Protein 7.0 6.0-8.5 GM/DL Normal 12-15-2016 [facility] (71266) Comment: Order Comment: [place]: M Performed By: #### L500.0140 0, L500.93943, L500.86358, L500.01191, L550.75752 ####[facility] [id number] [place], [place] [address]Fr# [phone] SGOT (AST) 30 8-34 U/L Normal 12-15-2016 [facility] (05691) Comment: Order Comment: [place]: M Performed By: #### L500.0140 0, L500.94414, L500.15033, L500.18164, L550.12790 ####[facility] [place] [address]Ld# [phone] Sodium 139 136-145 MMOL/L Normal 12-15-2016 [facility] (54292) Comment: Order Comment: [place]: M Performed By: #### L500.0140 0, L500.19183, L500.84936, L500.79959, L550.32711 ####[address] [address]Ig# [phone] Urea nitrogen 16 7-26 MG/DL Normal 12-15-2016 [facility] (61269) Comment: Order Comment: [place]: M Performed By: #### L500.0140 0, L500.17766, L500.23065, L500.58104, L550.75147 ####[facility] [place] [address]Dr# [phone] cbc w/diff on 12-15 BASO ABS 0.10 0-0.2 K/CU MM Normal 12-15-2016 [facility] (21109) Comment: Order Comment: [place]: M Performed By: #### L500.0140 0, L500.77679, L500.62871, L500.59845, L550.06714 ####[address] [place], [place] [address]Zd# [phone] Basophils/100 WBC Auto (Bld) 1.4 0-2 % Normal 0 12-15-2016 [facility] (55222) Comment: Order Comment: [place]: M Performed By: #### L500.0140 0, L500.55331, L500.86798, L500.30973, L550.22073 ####[facility] [id number] [place], [place] [address]Ne# [phone] EOS ABS 0.40 0-0.5 K/CU MM Normal 12-15-2016 [facility] [place] (61092) Comment: Order Comment: [place]: M Performed By: #### L500.0140 0, L500.71742, L500.45675, L500.79184, L550.22806 ####[facility] [id number] [place], [place] [address]Lx# [phone] Eosinophils/100 leukocytes 6.1 0-5 % High [facility] (74122) Comment: Order Comment: [place]: M Performed By: #### L500.0140 0, L500.17904, L500.76933, L500.40761, L550.04265 ####[facility] [id number] [place], [place] [address]Gs# [phone] Erythrocyte distribution 13.1 11-14.5 % Normal 12-15 [facility] width Auto Ratio (RBC) [place] (24808) Comment: Order Comment: [place]: M Performed By: #### L500.0140 0, L500.01195, L500.58963, L500.97996, L550.03844 ####[facility] [id number] [place], [place] [address]Bp# [phone] Erythrocytes (RBC) 4.41 4.50-6.00 M/CU MM Low 12-15-2016 [facility] (61605) Comment: Order Comment: [place]: M Performed By: #### L500.0140 0, L500.74360, L500.03636, L500.44654, L550.60701 ####[facility] [id number] [place], [place] [address]Xg# [phone] Erythrocytes (RBC) 0.0 Less than 1 % Normal [address] [place] [address] (77916) Comment: Order Comment: [place]: M Performed By: #### L500.0140 0, L500.05700, L500.97294, L500.03908, L550.81887 ####[facility] [id number] [place], [place] [address]Mx# [phone] Hematocrit (HCT) 37.4 41.0-53.0 % Low 12-15-2016 [facility] (68330) Comment: Order Comment: [place]: M Performed By: #### L500.0140 0, L500.92974, L500.84409, L500.74222, L550.68551 ####[address] [address]Ye# [phone] Hemoglobin mass conc (Bld) 12.4 13.5-17.5 G/DL Low [facility] (00 000) Comment: Order Comment: [place]: M Performed By: #### L500.0140 0, L500.97958, L500.38923, L500.53195, L550.81802 ####[facility] [id number] [place], [place] [address]Ji# [phone] IMMATR GRAN ABS 0.10 Less than 2 K/CU MM Normal 12-15-2016 [facility] (00 000) Comment: Order Comment: [place]: M Performed By: #### L500.0140 0, L500.71032, L500.29872, L500.78666, L550.69532 ####[facility] LICJYZTAUY9482 [place], [place] [address]In# [phone] IMMATURE GRAN % 0.8 Less than 2 % Normal 12-15-2016 [facility] (97574) Comment: Order Comment: [place]: M Performed By: #### L500.0140 0, L500.05670, L500.36357, L500.82753, L550.47204 ####[facility] [id number] [place], [place] [address]Rd# [phone] Lymphocytes 3.60 0.9-4.4 K/CU MM Normal 12-15-2016 [facility] (05970) Comment: Order Comment: [place]: M Performed By: #### L500.0140 0, L500.89343, L500.52515, L500.50793, L550.01987 ####[facility] [place], [place] [address]Is# [phone] Lymphocytes/100 leukocytes 56.6 20-40 % High [facility] (66206) Comment: Order Comment: [place]: M Performed By: #### L500.0140 0, L500.22314, L500.58308, L500.81625, L550.60883 ####[address] [place], [place] [address]Mq# [phone] MCHC mass conc (RBC) 33.2 32.0-36.0 GM/DL Normal 7 [facility] (00 000) Comment: Order Comment: [place]: M Performed By: #### L500.0140 0, L500.90278, L500.73333, L500.94166, L550.32982 ####[facility] [id number] [place], [place] [address]Vt# [phone] MCV 84.8 80.0-99.0 fl Normal 12-15-2016 [facility] (89959) Comment: Order Comment: [place]: M Performed By: #### L500.0140 0, L500.76249, L500.29325, L500.86003, L550.20050 ####[facility] [id number] [place], [place] [address]Yz# [phone] MONO ABS 0.50 0.1-1.1 K/CU MM Normal 12-15-2016 [facility] (39804) Comment: Order Comment: [place]: M Performed By: #### L500.0140 0, L500.38123, L500.71515, L500.05192, L550.41691 ####[facility] [id number] [place], [place] [address]Lv# [phone] Monocytes/100 leukocytes 8.5 2-10 % Normal 12-15 [facility] (25402) Comment: Order Comment: [place]: M Performed By: #### L500.0140 0, L500.96690, L500.86719, L500.41136, L550.90216 ####[facility] [id number] [place], [place] [address]Tn# [phone] Neutrophils 1.70 2.0-8.3 K/CU MM Low 12-15-2016 [facility] (56162) Comment: Order Comment: [place]: M Performed By: #### L500.0140 0, L500.78153, L500.20223, L500.95199, L550.98827 ####[facility] [id number] [place] [address]Zw# [phone] Neutrophils/100 WBC Auto (Bld) 26.6 45-75 % Low 12-15-2016 [facility] (00 000) Comment: Order Comment: [place]: M Performed By: #### L500.0140 0, L500.75066, L500.73678, L500.52808, L550.51840 ####[facility] [id number] [place], [place] [address]Ac# [phone] Platelet mean volume (PMV) 8.8 9.4-12.4 fL Low [facility] (71759) Comment: Order Comment: [place]: M Performed By: #### L500.0140 0, L500.86709, L500.78431, L500.84794, L550.88700 ####[facility] [id number] [place], [place] [address]Zj# [phone] Platelets 242 150-450 K/CU MM Normal 12-15-2016 [facility] ([id number]) Comment: Order Comment: [place]: M Performed By: #### L500.0140 0, L500.98134, L500.95798, L500.33875, L550.64778 ####[facility] [id number] [place], [place] [address]Ag# [phone] WBC (Leukocytes) 6.4 4.5-11.0 K/CU MM Normal 12-15-2016 [facility] ([id number]) Comment: Order Comment: [place]: M Performed By: #### L500.0140 0, L500.73434, L500.13474, L500.13876, L550.39304 ####[facility] [id number] [place], [place] [address]Wr# [phone] gfr est on IF AMER Greater than 60 Normal 12-14-[address] [place] [address] (81747) Comment: Order Comment: [place]: M Performed By: #### L500.0140 0, L500.30646, L500.40711, L500.54724, L550.95819 ####[facility] ARLRSYTKPD9217 [place], [place] [address]Sz# [phone] IF non-AFR AMER Greater than 60 Normal 12-14-[address] [place] [address] (50807) Comment: Order Comment: [place]: M Performed By: #### L500.0140 0, L500.22895, L500.52392, L500.05488, L550.62941 ####[facility] [id number] [place] [address]Kp# [phone] cmp on 2016-12-13 Alanine aminotransferase (ALT) 46 13-61 IU/L Normal 12-13-2016 [facility] (00 000) Comment: Order Comment: [place]: M Performed By: #### L500.0140 0, L500.81960, L500.00167, L500.38789, L550.07340 ####[facility] FOUBKQFBPC9012 [place], [place] [address]Rg# [phone] Albumin 3.4 3.2-5.0 GM/DL Normal 12-13-2016 [facility] (26241) Comment: Order Comment: [place]: M Performed By: #### L500.0140 0, L500.21031, L500.50823, L500.04402, L550.10509 ####[facility] LNNKQJIELW4647 [place], [place] [address]Iy# [phone] Albumin/Globulin Ratio 1.0 0.8-2.0 {ratio} Normal 017 [facility] (00 000) Comment: Order Comment: [place]: M Performed By: #### L500.0140 0, L500.75682, L500.58641, L500.46038, L550.83263 ####[facility] CFEKXCSVVI2194 [place], [place] [address]Fn# [phone] ALK PHOS 114 45-117 U/L Normal 12-13-2016 [facility] (44858) Comment: Order Comment: [place]: M Performed By: #### L500.0140 0, L500.51910, L500.79630, L500.87724, L550.24368 ####[facility] CBTYIYGTZD6465 [place], [place] [address]Hq# [phone] Anion gap 9 5-16 MMOL/L Normal 12-13-2016 [facility] (18011) Comment: Order Comment: [place]: M Performed By: #### L500.0140 0, L500.88861, L500.96532, L500.49996, L550.74567 ####[facility] UTMKCLHASM8560 [place], [place] [address]Xi# [phone] BILI TOTAL 0.3 0.2-1.0 MG/DL Normal 12-13-2016 [facility] (09421) Comment: Order Comment: [place]: M Performed By: #### L500.0140 0, L500.85596, L500.46590, L500.24784, L550.33196 ####[facility] HTTDIPTNBI1012 [place], [place] [address]Zm# [phone] BUN/Creatinine Ratio 19 15-24 mg/mg Normal 7 [facility] (94508) Comment: Order Comment: [place]: M Performed By: #### L500.0140 0, L500.63481, L500.61197, L500.98778, L550.35450 ####[facility] LEATPFRRXZ6635 [place], [place] [address]Qn# [phone] Calcium 9.2 8.5-10.1 MG/DL Normal 12-13-2016 [facility] (45488) Comment: Order Comment: [place]: M Performed By: #### L500.0140 0, L500.71933, L500.11980, L500.35197, L550.46909 ####[facility] PGWWLHWQFW5638 [place], [place] [address]To# [phone] Chloride 102 98-107 MMOL/L Normal 12-13-2016 [facility] (77764) Comment: Order Comment: [place]: M Performed By: #### L500.0140 0, L500.49693, L500.59874, L500.93017, L550.72504 ####[facility] FCOTFPKVRQ1837 [place], [place] [address]Bl# [phone] CO2 27 21-32 MMOL/L Normal 12-13-2016 [facility] (48343) Comment: Order Comment: [place]: M Performed By: #### L500.0140 0, L500.45934, L500.03261, L500.95275, L550.90889 ####[facility] FYEHZHAKFV8101 [place], [place] [address]Nc# [phone] Creatinine 0.774 0.670-1.170 MG/DL Normal 12-13-2016 [facility] (75778) Comment: Order Comment: [place]: M Result Comment: Patients rec eiving either N-Acetylcysteine (NAC) orMetamizole prior to venipu ncture, may have falsely depressedresults. Performed By: #### L500.0140 0, L500.85685, L500.07342, L500.13682, L550.57818 ####[facility] XTDLVCQWWR5120 [place], [place] [address]Re# [phone] Globulin 3.3 2.2-4.2 GM/DL Normal 12-13-2016 [facility] (17322) Comment: Order Comment: [place]: M Performed By: #### L500.0140 0, L500.27452, L500.86359, L500.64829, L550.15642 ####[facility] ZDWLQDGVVF9620 [place], [place] [address]Wp# [phone] Glucose mass conc 83 70-100 MG/DL Normal 12-13-2016 [facility] (08119) Comment: Order Comment: [place]: M Result Comment: 83-915-Ppgli l Fasting; 792-084-Sfrxduwr Fasting; greaterthan 126 on more than one result- Diabetes. ADA guidelines Performed By: #### L500.0140 0, L500.11225, L500.61516, L500.01976, L550.49462 ####[facility] ZXKMCUXOLM4952 [place], [place] [address]Re# [phone] Potassium molar conc 4.5 3.5-5.1 MMOL/L Normal 7 [facility] (80809) Comment: Order Comment: [place]: M Performed By: #### L500.0140 0, L500.65147, L500.39132, L500.28030, L550.86153 ####[facility] IFNTGZTPXB0732 [place], [place] [address]Yn# [phone] Protein 6.7 6.0-8.5 GM/DL Normal 12-13-2016 [facility] (60079) Comment: Order Comment: [place]: M Performed By: #### L500.0140 0, L500.44762, L500.58561, L500.52541, L550.82467 ####[facility] ZCRBXVYMYQ4236 [place], [place] [address]Rt# [phone] SGOT (AST) 30 8-34 U/L Normal 12-13-2016 [facility] (48065) Comment: Order Comment: [place]: M Performed By: #### L500.0140 0, L500.18694, L500.33655, L500.07337, L550.49519 ####[facility] FSNQRQLWOR6578 [place], [place] [address]Bj# [phone] Sodium 137 136-145 MMOL/L Normal 12-13-2016 [facility] (28348) Comment: Order Comment: [place]: M Performed By: #### L500.0140 0, L500.68027, L500.82350, L500.10466, L550.18753 ####[facility] UARYHAUYEX2476 [place], [place] [address]Fc# [phone] Urea nitrogen 15 7-26 MG/DL Normal 12-13-2016 [facility] (07382) Comment: Order Comment: [place]: M Performed By: #### L500.0140 0, L500.58896, L500.60520, L500.65853, L550.60260 ####[facility] GANGHKUMKA3248 [place], [place] [address]Mr# [phone] cbc w/diff on 12-13 BASO ABS 0.10 0-0.2 K/CU MM Normal 12-13-2016 [facility] (52311) Comment: Order Comment: [place]: M Performed By: #### L500.0140 0, L500.63462, L500.06429, L500.34012, L550.41482 ####[facility] CKUDNRUKBR9409 [place], [place] [address]Xw# [phone] Basophils/100 WBC Auto (Bld) 1.2 0-2 % Normal 0 12-13-2016 [facility] (60441) Comment: Order Comment: [place]: M Performed By: #### L500.0140 0, L500.37683, L500.05542, L500.78813, L550.87824 ####[facility] QCMVEPKMCZ8231 [place], [place] [address]Sm# [phone] EOS ABS 0.30 0-0.5 K/CU MM Normal 12-13-2016 [facility] [place] (50234) Comment: Order Comment: [place]: M Performed By: #### L500.0140 0, L500.46521, L500.52740, L500.79022, L550.42747 ####[address] [address]Ec# [phone] Eosinophils/100 leukocytes 4.5 0-5 % Normal [facility] (38700) Comment: Order Comment: [place]: M Performed By: #### L500.0140 0, L500.73435, L500.04809, L500.99317, L550.79476 ####[facility] AGFTSWZGAG1923 [place], [place] [address]Ih# [phone] Erythrocyte distribution 13.3 11-14.5 % Normal 12-13 [facility] width Auto Ratio (RBC) [place] (05848) Comment: Order Comment: [place]: M Performed By: #### L500.0140 0, L500.50003, L500.70576, L500.17332, L550.44126 ####[facility] QGCSLTGVNF[address] [place] [address]Rf# [phone] Erythrocytes (RBC) 0.0 Less than 1 % Normal 7 [facility] (76581) Comment: Order Comment: [place]: M Performed By: #### L500.0140 0, L500.39419, L500.31269, L500.28234, L550.72439 ####[facility] JZSAIAVVCM4819 [place], [place] [address]Iv# [phone] Erythrocytes (RBC) 4.24 4.50-6.00 M/CU MM Low 12-13-2016 [facility] (23928) Comment: Order Comment: [place]: M Performed By: #### L500.0140 0, L500.05635, L500.09069, L500.31930, L550.97073 ####[facility] UVABPKONGZ8035 [place], [place] [address]Bp# [phone] Hematocrit (HCT) 36.8 41.0-53.0 % Low 12-13-2016 [facility] (18020) Comment: Order Comment: [place]: M Performed By: #### L500.0140 0, L500.93797, L500.54348, L500.48358, L550.23443 ####[facility] TZCKXKAURP5942 [place], [place] [address]Mw# [phone] Hemoglobin mass conc (Bld) 12.0 13.5-17.5 G/DL Low [facility] (00 000) Comment: Order Comment: [place]: M Performed By: #### L500.0140 0, L500.11609, L500.77720, L500.55272, L550.49034 ####[facility] LVVJDNLSWM7137 [place], [place] [address]Sp# [phone] IMMATR GRAN ABS 0.00 Less than 2 K/CU MM Normal 12-13-2016 [facility] (00 000) Comment: Order Comment: [place]: M Performed By: #### L500.0140 0, L500.89069, L500.72375, L500.05966, L550.39855 ####[facility] CKGAGYMWFX5836 [place], [place] [address]Yj# [phone] IMMATURE GRAN % 0.5 Less than 2 % Normal 12-13-2016 [facility] (86492) Comment: Order Comment: [place]: M Performed By: #### L500.0140 0, L500.90786, L500.23140, L500.47858, L550.77271 ####[facility] OBMBDULPJA4275 [place], [place] [address]Vd# [phone] Lymphocytes 4.10 0.9-4.4 K/CU MM Normal 12-13-2016 [facility] (29795) Comment: Order Comment: [place]: M Performed By: #### L500.0140 0, L500.28379, L500.83761, L500.70625, L550.71886 ####[facility]1320 [place], [place] [address]Ag# [phone] Lymphocytes/100 leukocytes 63.2 20-40 % High [facility] (60691) Comment: Order Comment: [place]: M Performed By: #### L500.0140 0, L500.95865, L500.17039, L500.03633, L550.21677 ####[facility] BUWDYDLGAY2595 [place], [place] [address]Hc# [phone] MCHC mass conc (RBC) 32.6 32.0-36.0 GM/DL Normal 7 [facility] (00 000) Comment: Order Comment: [place]: M Performed By: #### L500.0140 0, L500.03501, L500.10272, L500.52238, L550.15906 ####[facility] EHJTQAAVWB6619 [place], [place] [address]Lj# [phone] MCV 86.8 80.0-99.0 fl Normal 12-13-2016 [facility] (02365) Comment: Order Comment: [place]: M Performed By: #### L500.0140 0, L500.20852, L500.40391, L500.79081, L550.90323 ####[facility] CZXCBDNRSB9560 [place], [place] [address]Sq# [phone] MONO ABS 0.50 0.1-1.1 K/CU MM Normal 12-13-2016 [facility] (39969) Comment: Order Comment: [place]: M Performed By: #### L500.0140 0, L500.46498, L500.98246, L500.35327, L550.11469 ####[facility] CJKZJGFDQI6090 [place], [place] [address]Ru# [phone] Monocytes/100 leukocytes 7.6 2-10 % Normal 12-13 [facility] (18603) Comment: Order Comment: [place]: M Performed By: #### L500.0140 0, L500.09683, L500.54737, L500.28973, L550.77404 ####[address] [address]Fk# [phone] Neutrophils 1.50 2.0-8.3 K/CU MM Low 12-13-2016 [facility] (18120) Comment: Order Comment: [place]: M Performed By: #### L500.0140 0, L500.78687, L500.59526, L500.19026, L550.85489 ####[address] [address]Bm# [phone] Neutrophils/100 WBC Auto (Bld) 23.0 45-75 % Low 12-13-2016 [facility] (00 000) Comment: Order Comment: [place]: M Performed By: #### L500.0140 0, L500.31003, L500.53544, L500.14930, L550.42350 ####[address] [address]Bn# [phone] Platelet mean volume (PMV) 9.1 9.4-12.4 fL Low [facility] (29292) Comment: Order Comment: [place]: M Performed By: #### L500.0140 0, L500.17587, L500.09449, L500.66173, L550.07385 ####[facility] DEGGUJDSNK0872 [place], [place] [address]Wo# [phone] Platelets 233 150-450 K/CU MM Normal 12-13-2016 [facility] (28397) Comment: Order Comment: [place]: M Performed By: #### L500.0140 0, L500.22462, L500.70958, L500.83426, L550.05905 ####[facility] HROFDYBIQS6560 [place], [place] [address]Zj# [phone] WBC (Leukocytes) 6.5 4.5-11.0 K/CU MM Normal 12-13-2016 [facility] (04675) Comment: Order Comment: [place]: M Performed By: #### L500.0140 0, L500.31713, L500.11233, L500.89030, L550.49777 ####[address] [address]Ok# [phone] mrsa pcr on 2016-11 MRSA PCR NEGATIVE NEGATIVE Normal 12-08-2016 [facility] (76771) Comment: Order Comment: [place]: M Result Comment: PLEASE NOTE: TESTING DONE BY PCR TECHNOLOGY. Performed By: #### L500.0140 0, L500.61804, L500.84579, L500.74326, L550.03158 ####[facility] QDJGISCYGI3272 [place], [place] [address]Iw# [phone] SA PCR NEGATIVE NEGATIVE Normal 12-08-2016 [facility] (51475) Comment: Order Comment: [place]: M Result Comment: PLEASE NOTE: TESTING DONE BY PCR TECHNOLOGY. Performed By: #### L500.0140 0, L500.76381, L500.51067, L500.90494, L550.83549 ####[facility] [address]XFCWZXEHJ[address] [place] [address]Yh# [phone] gfr est on IF AMER Greater than 60 Normal 12-09-[address] [place] [address] (50699) Comment: Order Comment: [place]: M Performed By: #### L500.0140 0, L500.17190, L500.27134, L500.72761, L550.53415 ####[facility] HNEIGFAOWS8805 [place], [place] [address]Uy# [phone] IF non-AFR AMER Greater than 60 Normal 12-09-[address] [place] [address] (36585) Comment: Order Comment: [place]: M Performed By: #### L500.0140 0, L500.38280, L500.08988, L500.43153, L550.27023 ####[facility] TTMJSEHGTD3756 [place], [place] [address]Yd# [phone] cmp on 2016-12-08 Alanine aminotransferase (ALT) 61 13-61 IU/L Normal 12-08-2016 [facility] (00 000) Comment: Order Comment: [place]: M Performed By: #### L500.0140 0, L500.60120, L500.42456, L500.52627, L550.23828 ####[facility] NDHWWYTMCR7832 [place], [place] [address]La# [phone] Albumin 4.0 3.2-5.0 GM/DL Normal 12-08-2016 [facility] (16431) Comment: Order Comment: [place]: M Performed By: #### L500.0140 0, L500.74603, L500.00644, L500.08288, L550.46091 ####[facility] EXHTPGKRJU8311 [place], [place] [address]We# [phone] Albumin/Globulin Ratio 1.0 0.8-2.0 {ratio} Normal [address] [place] [address] (00 000) Comment: Order Comment: [place]: M Performed By: #### L500.0140 0, L500.40907, L500.99082, L500.19153, L550.28830 ####[facility] USCMVMZYJZ7525 [place], [place] [address]Bz# [phone] ALK PHOS 139 45-117 U/L High 12-08-2016 [facility] (90554) Comment: Order Comment: [place]: M Performed By: #### L500.0140 0, L500.28717, L500.13469, L500.38161, L550.33716 ####[facility] POLDVQIVAG8217 [place], [place] [address]Ox# [phone] Anion gap 5 5-16 MMOL/L Normal 12-08-2016 [facility] (09740) Comment: Order Comment: [place]: M Performed By: #### L500.0140 0, L500.22102, L500.58940, L500.17840, L550.75957 ####[facility] FRFYACMVQI[address] [place] [address]Kh# [phone] BILI TOTAL 0.4 0.2-1.0 MG/DL Normal 12-08-2016 [facility] (05346) Comment: Order Comment: [place]: M Performed By: #### L500.0140 0, L500.61877, L500.77980, L500.26497, L550.41122 ####[facility] QELXDTDVAL3186 [place], [place] [address]Xj# [phone] BUN/Creatinine Ratio 17 15-24 mg/mg Normal 7 [facility] (16261) Comment: Order Comment: [place]: M Performed By: #### L500.0140 0, L500.82226, L500.37946, L500.97812, L550.99982 ####[facility] ISSMENWNUL0148 [place], [place] [address]Gs# [phone] Calcium 9.4 8.5-10.1 MG/DL Normal 12-08-2016 [facility] (74281) Comment: Order Comment: [place]: M Performed By: #### L500.0140 0, L500.43356, L500.87594, L500.49590, L550.77579 ####[facility] IHEWFEGFVZ1003 [place], [place] [address]Rj# [phone] Chloride 99 98-107 MMOL/L Normal 12-08-2016 [facility] (08670) Comment: Order Comment: [place]: M Performed By: #### L500.0140 0, L500.36321, L500.44359, L500.37337, L550.62450 ####[facility] VAJLFWVPVZ8749 [place], [place] [address]Pf# [phone] CO2 32 21-32 MMOL/L Normal 12-08-2016 [facility] (83489) Comment: Order Comment: [place]: M Performed By: #### L500.0140 0, L500.87875, L500.65389, L500.22371, L550.53470 ####[facility] XGPLUOCUEP4474 [place], [place] [address]Cz# [phone] Creatinine 0.784 0.670-1.170 MG/DL Normal 12-08-2016 [facility] (19810) Comment: Order Comment: [place]: M Result Comment: Patients rec eiving either N-Acetylcysteine (NAC) orMetamizole prior to venipu ncture, may have falsely depressedresults. Performed By: #### L500.0140 0, L500.62720, L500.96707, L500.17531, L550.58128 ####[facility] WXTBLSKVGI3074 [place], [place] [address]Ur# [phone] Globulin 4.1 2.2-4.2 GM/DL Normal 12-08-2016 [facility] (59861) Comment: Order Comment: [place]: M Performed By: #### L500.0140 0, L500.25611, L500.75915, L500.92885, L550.26213 ####[facility] ANJJNKOHGY5833 [place], [place] [address]Go# [phone] Glucose mass conc 89 70-100 MG/DL Normal 12-08-2016 [facility] (85396) Comment: Order Comment: [place]: M Result Comment: 57-307-Ghkir l Fasting; 986-887-Snivvjlv Fasting; greaterthan 126 on more than one result- Diabetes. ADA guidelines Performed By: #### L500.0140 0, L500.41398, L500.49698, L500.64438, L550.77242 ####[facility] UIOXXIYVRH4540 [place], [place] [address]Dy# [phone] Potassium molar conc 4.5 3.5-5.1 MMOL/L Normal 7 [facility] (74905) Comment: Order Comment: [place]: M Performed By: #### L500.0140 0, L500.01712, L500.05161, L500.56726, L550.75516 ####[facility] KPJFRMVLZA4426 [place], [place] [address]Zr# [phone] Protein 8.1 6.0-8.5 GM/DL Normal 12-08-2016 [facility] (82012) Comment: Order Comment: [place]: M Performed By: #### L500.0140 0, L500.68639, L500.17100, L500.90995, L550.03622 ####[facility] SMKYTMLWKN7536 [place], [place] [address]Bd# [phone] SGOT (AST) 42 8-34 U/L High 12-08-2016 [facility] (13734) Comment: Order Comment: [place]: M Performed By: #### L500.0140 0, L500.48094, L500.91401, L500.00533, L550.16277 ####[facility] EPFJMMNBET0440 [place], [place] [address]Kn# [phone] Sodium 136 136-145 MMOL/L Normal 12-08-2016 [facility] (89089) Comment: Order Comment: [place]: M Performed By: #### L500.0140 0, L500.41449, L500.65365, L500.90350, L550.00128 ####[facility] QEZFNQDRPI4347 [place], [place] [address]Zb# [phone] Urea nitrogen 13 7-26 MG/DL Normal 12-08-2016 [facility] (85662) Comment: Order Comment: [place]: M Performed By: #### L500.0140 0, L500.27889, L500.18353, L500.65133, L550.04358 ####[facility] AAKCZTWCHD9838 [place], [place] [address]Fo# [phone] cbc w/diff on 12-08 BASO ABS 0.10 0-0.2 K/CU MM Normal 12-08-2016 [facility] (81990) Comment: Order Comment: [place]: M Performed By: #### L500.0140 0, L500.65170, L500.16297, L500.80180, L550.23377 ####[facility] IBURCOQLOA7454 [place], [place] [address]Oj# [phone] Basophils/100 WBC Auto (Bld) 1.1 0-2 % Normal 0 12-08-2016 [facility] (64995) Comment: Order Comment: [place]: M Performed By: #### L500.0140 0, L500.35179, L500.92205, L500.94257, L550.98321 ####[facility] HTLCKJKEKU3008 [place], [place] [address]Dt# [phone] EOS ABS 0.30 0-0.5 K/CU MM Normal 12-08-2016 [facility] (73533) Comment: Order Comment: [place]: M Performed By: #### L500.0140 0, L500.00119, L500.64499, L500.02600, L550.73899 ####[facility] FOCLJKRPNN1411 [place], [place] [address]Gk# [phone] Eosinophils/100 leukocytes 3.3 0-5 % Normal [facility] (39674) Comment: Order Comment: [place]: M Performed By: #### L500.0140 0, L500.94970, L500.04593, L500.02205, L550.23620 ####[facility] [id number] [place], [place] [address]Ii# [phone] Erythrocyte distribution 13.3 11-14.5 % Normal 12-08 [facility] width Auto Ratio (RBC) [place] (12573) Comment: Order Comment: [place]: M Performed By: #### L500.0140 0, L500.84760, L500.54692, L500.59714, L550.19346 ####[facility] [id number] [place], [place] [address]Fg# [phone] Erythrocytes (RBC) 4.66 4.50-6.00 M/CU MM Normal 12-08-2016 [facility] (00 000) Comment: Order Comment: [place]: M Performed By: #### L500.0140 0, L500.99362, L500.78806, L500.02746, L550.76963 ####[facility] [id number] [place], [place] [address]Cc# [phone] Erythrocytes (RBC) 0.0 Less than 1 % Normal [address] [place] [address] ([address]) Comment: Order Comment: [place]: M Performed By: #### L500.0140 0, L500.31310, L500.26259, L500.53366, L550.54001 ####[facility] [id number] [place], [place] [address]Pb# [phone] Hematocrit (HCT) 39.8 41.0-53.0 % Low 12-08-2016 [facility] (03480) Comment: Order Comment: [place]: M Performed By: #### L500.0140 0, L500.10354, L500.09017, L500.95769, L550.96749 ####[facility] [id number] [place], [place] [address]Kw# [phone] Hemoglobin mass conc (Bld) 13.1 13.5-17.5 G/DL Low [facility] (00 000) Comment: Order Comment: [place]: M Performed By: #### L500.0140 0, L500.44591, L500.36254, L500.19464, L550.06377 ####[facility] [id number] [place], [place] [address]Xk# [phone] IMMATR GRAN ABS 0.00 Less than 2 K/CU MM Normal 12-08-2016 [facility] (00 000) Comment: Order Comment: [place]: M Performed By: #### L500.0140 0, L500.30779, L500.49708, L500.09332, L550.54485 ####[address] [place], [place] [address]Sy# [phone] IMMATURE GRAN % 0.5 Less than 2 % Normal 12-08-2016 [facility] (81267) Comment: Order Comment: [place]: M Performed By: #### L500.0140 0, L500.28271, L500.89583, L500.84388, L550.42658 ####[facility] [id number] [place], [place] [address]Fr# [phone] Lymphocytes 3.90 0.9-4.4 K/CU MM Normal 12-08-2016 [facility] ([address]65) Comment: Order Comment: [place]: M Performed By: #### L500.0140 0, L500.74105, L500.15204, L500.98975, L550.17153 ####[facility] [id number] [place] [address]Fc# [phone] Lymphocytes/100 leukocytes 52.3 20-40 % High [facility] (73558) Comment: Order Comment: [place]: M Performed By: #### L500.0140 0, L500.39646, L500.12338, L500.26320, L550.21392 ####[facility] [id number] [place], [place] [address]Ai# [phone] MCHC mass conc (RBC) 32.9 32.0-36.0 GM/DL Normal 7 [facility] (00 000) Comment: Order Comment: [place]: M Performed By: #### L500.0140 0, L500.85867, L500.01145, L500.34479, L550.15756 ####[facility] [id number] [place], [place] [address]Bo# [phone] MCV 85.4 80.0-99.0 fl Normal 12-08-2016 [facility] ([address]762) Comment: Order Comment: [place]: M Performed By: #### L500.0140 0, L500.38082, L500.97397, L500.24880, L550.83991 ####[facility] GYPWGKJCNA6917 [place], [place] [address]Kq# [phone] MONO ABS 0.70 0.1-1.1 K/CU MM Normal 12-08-2016 [facility] (03981) Comment: Order Comment: [place]: M Performed By: #### L500.0140 0, L500.57221, L500.49865, L500.51335, L550.75239 ####[facility] AONWYIQRJH4682 [place], [place] [address]Ro# [phone] Monocytes/100 leukocytes 9.6 2-10 % Normal 12-08 [facility] (11563) Comment: Order Comment: [place]: M Performed By: #### L500.0140 0, L500.67106, L500.33100, L500.41865, L550.63002 ####[facility] EYTHXUGGYZ8043 [place], [place] [address]Te# [phone] Neutrophils 2.50 2.0-8.3 K/CU MM Normal 12-08-2016 [facility] (69771) Comment: Order Comment: [place]: M Performed By: #### L500.0140 0, L500.98419, L500.09692, L500.25935, L550.90183 ####[facility] CZMXHMNJOJ7646 [place], [place] [address]Xi# [phone] Neutrophils/100 WBC Auto (Bld) 33.2 45-75 % Low 12-08-2016 [facility] (00 000) Comment: Order Comment: [place]: M Performed By: #### L500.0140 0, L500.46795, L500.46694, L500.20193, L550.35317 ####[facility] QPEOHLLMEB6531 [place], [place] [address]Gc# [phone] Platelet mean volume (PMV) 8.4 9.4-12.4 fL Low [facility] (24065) Comment: Order Comment: [place]: M Performed By: #### L500.0140 0, L500.67400, L500.16980, L500.98851, L550.97046 ####[facility] XJHZMBTLWA5680 [place], [place] [address]Kr# [phone] Platelets 309 150-450 K/CU MM Normal 12-08-2016 [facility] [place] (59539) Comment: Order Comment: [place]: M Performed By: #### L500.0140 0, L500.59150, L500.58510, L500.14448, L550.49546 ####[facility] [id number] [place], [place] [address]Zg# [phone] WBC (Leukocytes) 7.5 4.5-11.0 K/CU MM Normal 12-08-2016 [facility] [place] (23692) Comment: Order Comment: [place]: M Performed By: #### L500.0140 0, L500.12237, L500.53047, L500.81138, L550.93464 ####[facility] EVJABRXFXD5024 [place], [place] [address]Xv# [phone] gfr est on IF AMER Greater than 60 Normal 12-07-[address] [place] [address] (17863) Comment: Order Comment: [place]: M Performed By: #### L500.0140 0, L500.31944, L500.09303, L500.31304, L550.29476 ####[facility] ZKYEEWBYBQ2746 [place], [place] [address]Aj# [phone] IF non-AFR AMER Greater than 60 Normal 12-07-[address] [place] [address] (75375) Comment: Order Comment: [place]: M Performed By: #### L500.0140 0, L500.31679, L500.57032, L500.70232, L550.51391 ####[facility] [address]IL[address] [place] [address]Ly# [phone] cmp on 2016-12-06 Alanine aminotransferase (ALT) 52 13-61 IU/L Normal 12-06-2016 [facility] (00 000) Comment: Order Comment: [place]: M Performed By: #### L500.0140 0, L500.47615, L500.91260, L500.61262, L550.69672 ####[facility] [id number] [place], [place] [address]Vr# [phone] Albumin 3.2 3.2-5.0 GM/DL Normal 12-06-2016 [facility] (00578) Comment: Order Comment: [place]: M Performed By: #### L500.0140 0, L500.30877, L500.47855, L500.91862, L550.95826 ####[facility] XRBLINHCHH6777 [place], [place] [address]Sf# [phone] Albumin/Globulin Ratio 0.9 0.8-2.0 {ratio} Normal [address] [place] [address] (00 000) Comment: Order Comment: [place]: M Performed By: #### L500.0140 0, L500.38830, L500.43788, L500.26975, L550.72436 ####[facility] [id number] [place], [place] [address]Il# [phone] ALK PHOS 127 45-117 U/L High 12-06-2016 [facility] (29891) Comment: Order Comment: [place]: M Performed By: #### L500.0140 0, L500.74079, L500.22976, L500.68654, L550.99313 ####[facility] IZPVWNEBJU6997 [place], [place] [address]Kf# [phone] Anion gap 9 5-16 MMOL/L Normal 12-06-2016 [facility] (42560) Comment: Order Comment: [place]: M Performed By: #### L500.0140 0, L500.23683, L500.26185, L500.58763, L550.27945 ####[facility] MGMDZRUSGF3565 [place], [place] [address]Gh# [phone] BILI TOTAL 0.4 0.2-1.0 MG/DL Normal 12-06-2016 [facility] (97914) Comment: Order Comment: [place]: M Performed By: #### L500.0140 0, L500.27829, L500.40121, L500.13909, L550.33308 ####[facility] CEBPGNLHJV7797 [place], [place] [address]Zo# [phone] BUN/Creatinine Ratio 23 15-24 mg/mg Normal 7 [facility] (64778) Comment: Order Comment: [place]: M Performed By: #### L500.0140 0, L500.88451, L500.24736, L500.72984, L550.04207 ####[facility] APNCVJEFWD6296 [place], [place] [address]Hs# [phone] Calcium 9.2 8.5-10.1 MG/DL Normal 12-06-2016 [facility] (80367) Comment: Order Comment: [place]: M Performed By: #### L500.0140 0, L500.02208, L500.58490, L500.56914, L550.03217 ####[facility] PVKDHDUJQB2449 [place], [place] [address]Go# [phone] Chloride 101 98-107 MMOL/L Normal 12-06-2016 [facility] (13836) Comment: Order Comment: [place]: M Performed By: #### L500.0140 0, L500.10871, L500.91832, L500.51625, L550.81047 ####[facility] GQXZDPTVLG6521 [place], [place] [address]Pn# [phone] CO2 28 21-32 MMOL/L Normal 12-06-2016 [facility] (25568) Comment: Order Comment: [place]: M Performed By: #### L500.0140 0, L500.08057, L500.09191, L500.62174, L550.62911 ####[facility] GJAFQNGMOF6990 [place], [place] [address]Db# [phone] Creatinine 0.726 0.670-1.170 MG/DL Normal 12-06-2016 [facility] (17337) Comment: Order Comment: [place]: M Result Comment: Patients rec eiving either N-Acetylcysteine (NAC) orMetamizole prior to venipu ncture, may have falsely depressedresults. Performed By: #### L500.0140 0, L500.05098, L500.59815, L500.33440, L550.22166 ####[facility] CQOWBSRWUR4200 [place], [place] [address]En# [phone] Globulin 3.5 2.2-4.2 GM/DL Normal 12-06-2016 [facility] (25708) Comment: Order Comment: [place]: M Performed By: #### L500.0140 0, L500.89857, L500.88534, L500.12681, L550.79897 ####[facility] IBUOWWWXBA8398 [place], [place] [address]Km# [phone] Glucose mass conc 85 70-100 MG/DL Normal 12-06-2016 [facility] (89909) Comment: Order Comment: [place]: M Result Comment: 84-613-Mqmcx l Fasting; 462-139-Zhsbinzv Fasting; greaterthan 126 on more than one result- Diabetes. ADA guidelines Performed By: #### L500.0140 0, L500.58340, L500.68278, L500.26160, L550.64891 ####[facility] GDDSQKMPHZ8728 [place], [place] [address]Ep# [phone] Potassium molar conc 4.4 3.5-5.1 MMOL/L Normal 7 [facility] (52370) Comment: Order Comment: [place]: M Performed By: #### L500.0140 0, L500.28767, L500.22315, L500.25302, L550.87574 ####[facility] MFOUDLYBRF0574 [place], [place] [address]Nb# [phone] Protein 6.7 6.0-8.5 GM/DL Normal 12-06-2016 [facility] (32661) Comment: Order Comment: [place]: M Performed By: #### L500.0140 0, L500.03789, L500.31044, L500.25502, L550.98896 ####[facility] YIWYNCIVCC4530 [place], [place] [address]Oe# [phone] SGOT (AST) 37 8-34 U/L High 12-06-2016 [facility] (96808) Comment: Order Comment: [place]: M Performed By: #### L500.0140 0, L500.55829, L500.45563, L500.06085, L550.24627 ####[facility] CEFIQZHUZQ5886 [place], [place] [address]Px# [phone] Sodium 138 136-145 MMOL/L Normal 12-06-2016 [facility] (92352) Comment: Order Comment: [place]: M Performed By: #### L500.0140 0, L500.52959, L500.91752, L500.68130, L550.72084 ####[address] [place], [place] [address]Te# [phone] Urea nitrogen 17 7-26 MG/DL Normal 12-06-2016 [facility] (22877) Comment: Order Comment: [place]: M Performed By: #### L500.0140 0, L500.47884, L500.05113, L500.47285, L550.37115 ####[address] [address]Cw# [phone] cbc w/diff on 12-06 EOS ABS 0.29 0-0.5 K/CU MM Normal 12-06-2016 [facility] (62133) Comment: Order Comment: [place]: M Performed By: #### L500.0140 0, L500.56440, L500.03501, L500.65839, L550.52536 ####[address] [place], [place] [address]Ks# [phone] Eosinophils/100 leukocytes 4.0 0-5 % Normal [facility] (05399) Comment: Order Comment: [place]: M Performed By: #### L500.0140 0, L500.76837, L500.31720, L500.34470, L550.20116 ####[facility] [place], [place] [address]Dj# [phone] Lymphocytes 3.96 0.9-4.4 K/CU MM Normal 12-06-2016 [facility] (47414) Comment: Order Comment: [place]: M Performed By: #### L500.0140 0, L500.96676, L500.14471, L500.00808, L550.66711 ####[address] [address]Bb# [phone] Lymphocytes PRESENT Normal 12-06-2016 [facility] (06860) Comment: Order Comment: [place]: M Performed By: #### L500.0140 0, L500.10202, L500.37001, L500.84032, L550.26580 ####[address] [address]Ub# [phone] Lymphocytes/100 leukocytes 55.0 20-40 % High [facility] (69818) Comment: Order Comment: [place]: M Performed By: #### L500.0140 0, L500.94284, L500.29244, L500.91908, L550.81421 ####[address] [address]Wq# [phone] MONO ABS 0.72 0.1-1.1 K/CU MM Normal 12-06-2016 [facility] (34118) Comment: Order Comment: [place]: M Performed By: #### L500.0140 0, L500.70553, L500.08897, L500.83138, L550.51420 ####[address] [address]Eh# [phone] Monocytes/100 leukocytes 10.0 2-10 % Normal 12-06 [facility] (53527) Comment: Order Comment: [place]: M Performed By: #### L500.0140 0, L500.47511, L500.18312, L500.69289, L550.71020 ####[address] [address]Vv# [phone] Neutrophils 2.23 2.0-8.3 K/CU MM Normal 12-06-2016 [facility] (50150) Comment: Order Comment: [place]: M Performed By: #### L500.0140 0, L500.46551, L500.79086, L500.24857, L550.84675 ####[address] [address]Du# [phone] Neutrophils/100 WBC Auto (Bld) 31.0 45-75 % Low 12-06-2016 [facility] (00 000) Comment: Order Comment: [place]: M Performed By: #### L500.0140 0, L500.21444, L500.15332, L500.86292, L550.40265 ####[facility] JTWGFQHQAX8650 [place], [place] [address]Su# [phone] PLT EST ADEQUATE Normal 12-06-2016 [facility] (02726) Comment: Order Comment: [place]: M Performed By: #### L500.0140 0, L500.79518, L500.86414, L500.31353, L550.32283 ####[facility] HDLPSKBQMN5943 [place], [place] [address]Es# [phone] POLY 1+ Normal 12-06-2016 [facility] (05294) Comment: Order Comment: [place]: M Performed By: #### L500.0140 0, L500.56877, L500.45469, L500.33958, L550.58317 ####[facility] HCIRWTKEYU6426 [place], [place] [address]Zq# [phone] Erythrocyte distribution 13.2 11-14.5 % Normal 12-06 [facility] width Auto Ratio (RBC) [place] (85546) Comment: Order Comment: [place]: M Performed By: #### L500.0140 0, L500.30753, L500.34569, L500.98945, L550.95085 ####[facility] SQKFELRTBE9570 [place], [place] [address]Bg# [phone] Erythrocytes (RBC) 0.0 Less than 1 % Normal 7 [facility] (78204) Comment: Order Comment: [place]: M Performed By: #### L500.0140 0, L500.19870, L500.65076, L500.29044, L550.82947 ####[facility] VZKXESCNRO5449 [place], [place] [address]Uj# [phone] Erythrocytes (RBC) 4.25 4.50-6.00 M/CU MM Low 12-06-2016 [facility] (71716) Comment: Order Comment: [place]: M Performed By: #### L500.0140 0, L500.43298, L500.17322, L500.59271, L550.38937 ####[facility] FXRSYDZHJY7479 [place], [place] [address]Ay# [phone] Hematocrit (HCT) 36.3 41.0-53.0 % Low 12-06-2016 [facility] (49686) Comment: Order Comment: [place]: M Performed By: #### L500.0140 0, L500.77821, L500.10020, L500.73962, L550.22567 ####[facility] JXBMMIXYNG5848 [place], [place] [address]Dw# [phone] Hemoglobin mass conc (Bld) 12.1 13.5-17.5 G/DL Low [facility] (00 000) Comment: Order Comment: [place]: M Performed By: #### L500.0140 0, L500.31053, L500.57442, L500.33415, L550.74083 ####[facility] WBWGJYYITO0367 [place], [place] [address]Yo# [phone] MCHC mass conc (RBC) 33.3 32.0-36.0 GM/DL Normal 7 [facility] (00 000) Comment: Order Comment: [place]: M Performed By: #### L500.0140 0, L500.57327, L500.32961, L500.87819, L550.60958 ####[facility] TMERKYTSCG7811 [place], [place] [address]Dx# [phone] MCV 85.4 80.0-99.0 fl Normal 12-06-2016 [facility] (20103) Comment: Order Comment: [place]: M Performed By: #### L500.0140 0, L500.66476, L500.37868, L500.24446, L550.20681 ####[facility] VMHZSRSZMB5474 [place], [place] [address]Oc# [phone] Platelet mean volume (PMV) 9.1 9.4-12.4 fL Low [facility] (67002) Comment: Order Comment: [place]: M Performed By: #### L500.0140 0, L500.93514, L500.35808, L500.47528, L550.59338 ####[facility] MUYMDHHPWN4077 [place], [place] [address]Lz# [phone] Platelets 259 150-450 K/CU MM Normal 12-06-2016 [facility] (67505) Comment: Order Comment: [place]: M Performed By: #### L500.0140 0, L500.86927, L500.11245, L500.87337, L550.01036 ####[facility] [id number] [place], [place] [address]Xd# [phone] WBC (Leukocytes) 7.2 4.5-11.0 K/CU MM Normal 12-06-2016 [facility] (44904) Comment: Order Comment: [place]: M Performed By: #### L500.0140 0, L500.00840, L500.76166, L500.90519, L550.50762 ####[facility] DMDWBGJDJT6136 [place], [place] [address]Xa# [phone] hcv genotyping on 2 HCV GENOTYPE TNP Normal 11-26-2016 [facility] (66472) Comment: Order Comment: [place]: M Result Comment: Specimen has insufficient hepatitis C virus RNA to obtaingenotyping results. Th is genotyping assay should only beused for known HCV positive patients with H CV RNA levelsabove 1000 IU/mL. Performed By: #### L500.0140 0, L500.95835, L500.54750, L500.04040, L550.68449 ####[facility] VKGUPGDBHH7184 [place], [place] [address]El# [phone] NOTE HCV GTYPE: TNP Normal 11-26-2016 [facility] (53292) Comment: Order Comment: [place]: M Result Comment: This test wa s developed and its performance characteristicsdetermined by [facility]. It has not been cleared or approvedby the U.S. Food and Drug Admin istration.The FDA has determined that such clearance or approval isnot necessary. This test is used for clinical purposes. Itshould not be re garded as investigational or for research.Performed At: [facility] [address] [id number] Joaquín Dougherty [id number] Performed By: #### L500.0140 0, L500.77123, L500.24333, L500.68037, L550.37377 ####[facility] XULDBSIJGQ7565 [place], [place] [address]Vs# [phone] gfr est on IF AMER Greater than 60 Normal 11-27-[address] [place] [address] (80422) Comment: Order Comment: [place]: M Performed By: #### L500.0140 0, L500.18993, L500.65824, L500.64489, L550.72014 ####[facility] EHETACQNVX3406 [place], [place] [address]Oz# [phone] IF non-AFR AMER Greater than 60 Normal 11-27-[address] [place] [address] (81377) Comment: Order Comment: [place]: M Performed By: #### L500.0140 0, L500.12800, L500.85291, L500.84916, L550.51028 ####[facility] GKKCUARPPE9652 [place], [place] [address]Ge# [phone] cmp on 2016-11-26 Alanine aminotransferase (ALT) 37 13-61 IU/L Normal 11-26-2016 [facility] (00 000) Comment: Order Comment: [place]: M Performed By: #### L500.0140 0, L500.26023, L500.27698, L500.88496, L550.51662 ####[facility] AXGRLNUFTS7689 [place], [place] [address]El# [phone] Albumin 2.9 3.2-5.0 GM/DL Low 11-26-2016 [facility] (21397) Comment: Order Comment: [place]: M Performed By: #### L500.0140 0, L500.49439, L500.80878, L500.30026, L550.55453 ####[facility] GCZTVAWOLV5289 [place], [place] [address]Kq# [phone] Albumin/Globulin Ratio 0.9 0.8-2.0 {ratio} Normal 017 [facility] (00 000) Comment: Order Comment: [place]: M Performed By: #### L500.0140 0, L500.67717, L500.83715, L500.39974, L550.93171 ####[facility] KAGVMDWNKO3729 [place], [place] [address]Jb# [phone] ALK PHOS 127 45-117 U/L High 11-26-2016 [facility] (00746) Comment: Order Comment: [place]: M Performed By: #### L500.0140 0, L500.24436, L500.39117, L500.32566, L550.22697 ####[facility] IPVCJYWPSK6428 [place], [place] [address]Ob# [phone] Anion gap 7 5-16 MMOL/L Normal 11-26-2016 [facility] (22652) Comment: Order Comment: [place]: M Performed By: #### L500.0140 0, L500.71214, L500.63022, L500.54239, L550.20763 ####[facility] GCDGNYSPJN5373 [place], [place] [address]Lu# [phone] BILI TOTAL 0.3 0.2-1.0 MG/DL Normal 11-26-2016 [facility] (72081) Comment: Order Comment: [place]: M Performed By: #### L500.0140 0, L500.09499, L500.99831, L500.93797, L550.78462 ####[facility] HBAIEHMAAW5827 [place], [place] [address]Fd# [phone] BUN/Creatinine Ratio 12 15-24 mg/mg Low 7 [facility] (61740) Comment: Order Comment: [place]: M Performed By: #### L500.0140 0, L500.71620, L500.78161, L500.84374, L550.06002 ####[facility] UMDUFRALJW1470 [place], [place] [address]Cm# [phone] Calcium 8.5 8.5-10.1 MG/DL Normal 11-26-2016 [facility] (16579) Comment: Order Comment: [place]: M Performed By: #### L500.0140 0, L500.88881, L500.23364, L500.60243, L550.20678 ####[facility] RWLPEEZSEN2979 [place], [place] [address]Wg# [phone] Chloride 105 98-107 MMOL/L Normal 11-26-2016 [facility] (82889) Comment: Order Comment: [place]: M Performed By: #### L500.0140 0, L500.78863, L500.49767, L500.01462, L550.73344 ####[facility] MHSZHPWMOL0262 [place], [place] [address]Gw# [phone] CO2 28 21-32 MMOL/L Normal 11-26-2016 [facility] (62302) Comment: Order Comment: [place]: M Performed By: #### L500.0140 0, L500.85571, L500.17697, L500.03743, L550.70291 ####[facility] GIOGLHCIFR2018 [place], [place] [address]Dg# [phone] Creatinine 0.646 0.670-1.170 MG/DL Low 11-26-2016 [facility] (59293) Comment: Order Comment: [place]: M Result Comment: Patients rec eiving either N-Acetylcysteine (NAC) orMetamizole prior to venipu ncture, may have falsely depressedresults. Performed By: #### L500.0140 0, L500.98085, L500.52905, L500.68694, L550.79209 ####[facility] BTHZJZBNDT9455 [place], [place] [address]Wc# [phone] Globulin 3.1 2.2-4.2 GM/DL Normal 11-26-2016 [facility] (37716) Comment: Order Comment: [place]: M Performed By: #### L500.0140 0, L500.91692, L500.72345, L500.76500, L550.39201 ####[facility] TMSSMPIIGB7549 [place], [place] [address]Ag# [phone] Glucose mass conc 91 70-100 MG/DL Normal 11-26-2016 [facility] (89791) Comment: Order Comment: [place]: M Result Comment: 35-561-Mlbmm l Fasting; 580-179-Wrifzqus Fasting; greaterthan 126 on more than one result- Diabetes. ADA guidelines Performed By: #### L500.0140 0, L500.72366, L500.33795, L500.36122, L550.70221 ####[facility] IBWGPLHTMZ9835 [place], [place] [address]Rp# [phone] Potassium molar conc 4.0 3.5-5.1 MMOL/L Normal 7 [facility] (06844) Comment: Order Comment: [place]: M Performed By: #### L500.0140 0, L500.31294, L500.83984, L500.10012, L550.90311 ####[facility] VXCLQGPHFX1746 [place], [place] [address]Yw# [phone] Protein 6.0 6.0-8.5 GM/DL Normal 11-26-2016 [facility] (81373) Comment: Order Comment: [place]: M Performed By: #### L500.0140 0, L500.81290, L500.40608, L500.49623, L550.58077 ####[facility] [id number] [place], [place] [address]Ms# [phone] SGOT (AST) 27 8-34 U/L Normal 11-26-2016 [facility] (21703) Comment: Order Comment: [place]: M Performed By: #### L500.0140 0, L500.37914, L500.09307, L500.05372, L550.95073 ####[facility] [id number] [place], [place] [address]Dz# [phone] Sodium 140 136-145 MMOL/L Normal 11-26-2016 [facility] (84210) Comment: Order Comment: [place]: M Performed By: #### L500.0140 0, L500.71334, L500.76164, L500.55745, L550.33680 ####[facility] [id number] [place], [place] [address]Fg# [phone] Urea nitrogen 8 7-26 MG/DL Normal 11-26-2016 [facility] (76902) Comment: Order Comment: [place]: M Performed By: #### L500.0140 0, L500.15198, L500.58649, L500.89652, L550.75843 ####[facility] [id number] [place], [place] [address]Xt# [phone] cbc w/diff on 11-26 BASO ABS 0.10 0-0.2 K/CU MM Normal 11-26-2016 [facility] (11762) Comment: Order Comment: [place]: M Performed By: #### L500.0140 0, L500.31598, L500.67768, L500.46674, L550.83030 ####[facility] [id number] [place], [place] [address]Go# [phone] Basophils/100 WBC Auto (Bld) 1.0 0-2 % Normal 0 11-26-2016 [facility] (65288) Comment: Order Comment: [place]: M Performed By: #### L500.0140 0, L500.75823, L500.75870, L500.84915, L550.62742 ####[address] [address]Lt# [phone] EOS ABS 0.50 0-0.5 K/CU MM Normal 11-26-2016 [facility] (29932) Comment: Order Comment: [place]: M Performed By: #### L500.0140 0, L500.28603, L500.74681, L500.59527, L550.38356 ####[address] [address]Bx# [phone] Eosinophils/100 leukocytes 11.0 0-5 % [facility] (39670) Comment: Order Comment: [place]: M Performed By: #### L500.0140 0, L500.25868, L500.12355, L500.95989, L550.70026 ####[address] [address]Gy# [phone] IMMATR GRAN ABS 0.00 Less than 2 K/CU MM Normal 11-26-2016 [facility] (00 000) Comment: Order Comment: [place]: M Performed By: #### L500.0140 0, L500.83456, L500.00510, L500.01915, L550.73948 ####[address] [address]Cp# [phone] IMMATURE GRAN % 0.8 Less than 2 % Normal 11-26-2016 [facility] (09448) Comment: Order Comment: [place]: M Performed By: #### L500.0140 0, L500.76555, L500.96645, L500.50242, L550.69027 ####[facility] [place], [place] [address]Iv# [phone] Lymphocytes PRESENT Normal 11-26-2016 [facility] (50497) Comment: Order Comment: [place]: M Performed By: #### L500.0140 0, L500.37137, L500.90156, L500.23524, L550.02968 ####[address] [address]Gp# [phone] Lymphocytes 2.30 0.9-4.4 K/CU MM Normal 11-26-2016 [facility] (06832) Comment: Order Comment: [place]: M Performed By: #### L500.0140 0, L500.81066, L500.00395, L500.60354, L550.70554 ####[address] [address]Da# [phone] Lymphocytes/100 leukocytes 47.9 20-40 % [facility] (21443) Comment: Order Comment: [place]: M Performed By: #### L500.0140 0, L500.14519, L500.54701, L500.78414, L550.37388 ####[address] [place], [place] [address]Wv# [phone] MONO ABS 0.30 0.1-1.1 K/CU MM Normal 11-26-2016 [facility] (89004) Comment: Order Comment: [place]: M Performed By: #### L500.0140 0, L500.80797, L500.37742, L500.55532, L550.79647 ####[address] [place], [place] [address]Pc# [phone] Monocytes/100 leukocytes 7.0 2-10 % Normal 11-26 [facility] (54513) Comment: Order Comment: [place]: M Performed By: #### L500.0140 0, L500.09528, L500.14418, L500.02154, L550.23443 ####[facility] [id number] [place], [place] [address]Lh# [phone] Neutrophils 1.60 2.0-8.3 K/CU MM Low 11-26-2016 [facility] (63450) Comment: Order Comment: [place]: M Performed By: #### L500.0140 0, L500.01378, L500.87337, L500.62424, L550.23968 ####[facility] [id number] [place], [place] [address]Bf# [phone] Neutrophils/100 WBC Auto (Bld) 32.3 45-75 % Low 11-26-2016 [facility] (00 000) Comment: Order Comment: [place]: M Performed By: #### L500.0140 0, L500.73870, L500.44163, L500.02312, L550.08552 ####[facility] [id number] [place], [place] [address]Dl# [phone] PLT EST SLT DECREASED Normal 11-26-2016 [facility] (92323) Comment: Order Comment: [place]: M Performed By: #### L500.0140 0, L500.85276, L500.08740, L500.62702, L550.13032 ####[facility] [id number] [place], [place] [address]Ib# [phone] POLY 1+ Normal 11-26-2016 [facility] (98992) Comment: Order Comment: [place]: M Performed By: #### L500.0140 0, L500.80813, L500.38665, L500.63083, L550.44819 ####[facility] [id number] [place], [place] [address]On# [phone] Erythrocyte distribution 12.9 11-14.5 % Normal 11-26 [facility] width Auto Ratio (RBC) [place] (61731) Comment: Order Comment: [place]: M Performed By: #### L500.0140 0, L500.57469, L500.75311, L500.62315, L550.76422 ####[facility] [id number] [place], [place] [address]Cs# [phone] Erythrocytes (RBC) 3.81 4.50-6.00 M/CU MM Low 11-26-2016 [facility] (16056) Comment: Order Comment: [place]: M Performed By: #### L500.0140 0, L500.49099, L500.69161, L500.07189, L550.19100 ####[facility] [id number] [place], [place] [address]Ha# [phone] Erythrocytes (RBC) 0.0 Less than 1 % Normal 7 [facility] (66279) Comment: Order Comment: [place]: M Performed By: #### L500.0140 0, L500.69138, L500.53192, L500.69425, L550.32096 ####[facility] OGOMZWZHYT0632 [place], [place] [address]Ol# [phone] Hematocrit (HCT) 31.9 41.0-53.0 % Low 11-26-2016 [facility] (43115) Comment: Order Comment: [place]: M Performed By: #### L500.0140 0, L500.74743, L500.82646, L500.07135, L550.13037 ####[facility] RDNVMVYROZ2128 [place], [place] [address]Bk# [phone] Hemoglobin mass conc (Bld) 11.0 13.5-17.5 G/DL Low [facility] (00 000) Comment: Order Comment: [place]: M Performed By: #### L500.0140 0, L500.55014, L500.72709, L500.67072, L550.06430 ####[facility] [id number] [place], [place] [address]Bq# [phone] MCHC mass conc (RBC) 34.5 32.0-36.0 GM/DL Normal 7 [facility] (00 000) Comment: Order Comment: [place]: M Performed By: #### L500.0140 0, L500.13411, L500.25171, L500.46116, L550.72951 ####[facility] [id number] [place], [place] [address]Nh# [phone] MCV 83.7 80.0-99.0 fl Normal 11-26-2016 [facility] (91540) Comment: Order Comment: [place]: M Performed By: #### L500.0140 0, L500.50853, L500.21613, L500.82350, L550.59001 ####[address] [place], [place] [address]Gv# [phone] Platelet mean volume (PMV) 9.3 9.4-12.4 fL Low [facility] (25037) Comment: Order Comment: [place]: M Performed By: #### L500.0140 0, L500.70699, L500.42454, L500.82395, L550.72565 ####[facility] [id number] [place], [place] [address]As# [phone] Platelets 148 150-450 K/CU MM Low 11-26-2016 [facility] (53189) Comment: Order Comment: [place]: M Performed By: #### L500.0140 0, L500.11989, L500.85918, L500.45608, L550.37572 ####[facility] CWBBEHWGJW2486 [place], [place] [address]Vb# [phone] WBC (Leukocytes) 4.8 4.5-11.0 K/CU MM Normal 11-26-2016 [facility] (88705) Comment: Order Comment: [place]: M Performed By: #### L500.0140 0, L500.24711, L500.22268, L500.02775, L550.48002 ####[facility] GDJYKQMCJM5125 [place], [place] [address]Sy# [phone] gfr est on IF AMER Greater than 60 Normal 11-25-[address] [place] [address] (37619) Comment: Order Comment: [place]: M Performed By: #### L500.0140 0, L500.87576, L500.98671, L500.56941, L550.66409 ####[facility] LEQNGFMXYF7881 [place], [place] [address]Iq# [phone] IF non-AFR AMER Greater than 60 Normal 11-25-[address] [place] [address] (61506) Comment: Order Comment: [place]: M Performed By: #### L500.0140 0, L500.13107, L500.02028, L500.12558, L550.39708 ####[facility] NQAHKRFNGA6878 [place], [place] [address]Lm# [phone] cmp on 2016-11-24 Alanine aminotransferase (ALT) 36 13-61 IU/L Normal 11-24-2016 [facility] (00 000) Comment: Order Comment: [place]: M Performed By: #### L500.0140 0, L500.09677, L500.23000, L500.08206, L550.61892 ####[facility] NCRFYMYMOF7599 [place], [place] [address]Jq# [phone] Albumin 3.1 3.2-5.0 GM/DL Low 11-24-2016 [facility] (76744) Comment: Order Comment: [place]: M Performed By: #### L500.0140 0, L500.63798, L500.69064, L500.10120, L550.29544 ####[facility] SKWJTEZXYJ7694 [place], [place] [address]Db# [phone] Albumin/Globulin Ratio 1.0 0.8-2.0 {ratio} Normal [address] [place] [address] (00 000) Comment: Order Comment: [place]: M Performed By: #### L500.0140 0, L500.56861, L500.86202, L500.70103, L550.53759 ####[facility] TCEVOXONQC0148 [place], [place] [address]Eu# [phone] ALK PHOS 136 45-117 U/L High 11-24-2016 [facility] (53961) Comment: Order Comment: [place]: M Performed By: #### L500.0140 0, L500.81885, L500.98123, L500.80347, L550.85220 ####[facility] VOZMXEAMED9915 [place], [place] [address]Ee# [phone] Anion gap 6 5-16 MMOL/L Normal 11-24-2016 [facility] (81304) Comment: Order Comment: [place]: M Performed By: #### L500.0140 0, L500.09093, L500.10018, L500.18915, L550.54758 ####[facility] AGZXPJYEFZ6993 [place], [place] [address]Kn# [phone] BILI TOTAL 0.4 0.2-1.0 MG/DL Normal 11-24-2016 [facility] (84374) Comment: Order Comment: [place]: M Performed By: #### L500.0140 0, L500.68988, L500.79529, L500.24270, L550.21447 ####[facility] GXTVRIJBDW3070 [place], [place] [address]Fu# [phone] BUN/Creatinine Ratio 12 15-24 mg/mg Low 7 [facility] (65147) Comment: Order Comment: [place]: M Performed By: #### L500.0140 0, L500.40948, L500.33177, L500.71631, L550.48727 ####[facility] NJNLRMVEYN9620 [place], [place] [address]Zj# [phone] Calcium 8.6 8.5-10.1 MG/DL Normal 11-24-2016 [facility] (31503) Comment: Order Comment: [place]: M Performed By: #### L500.0140 0, L500.79687, L500.08725, L500.04697, L550.59908 ####[facility] GTFZMIQYQU0153 [place], [place] [address]Ok# [phone] Chloride 103 98-107 MMOL/L Normal 11-24-2016 [facility] (60575) Comment: Order Comment: [place]: M Performed By: #### L500.0140 0, L500.36156, L500.95691, L500.18557, L550.85752 ####[facility] GNYGXJLDFO1917 [place], [place] [address]Pi# [phone] CO2 30 21-32 MMOL/L Normal 11-24-2016 [facility] (87094) Comment: Order Comment: [place]: M Performed By: #### L500.0140 0, L500.10205, L500.66375, L500.62259, L550.49654 ####[facility] [id number] [place], [place] [address]Aq# [phone] Creatinine 0.992 0.670-1.170 MG/DL Normal 11-24-2016 [facility] (09020) Comment: Order Comment: [place]: M Result Comment: Patients rec eiving either N-Acetylcysteine (NAC) orMetamizole prior to venipu ncture, may have falsely depressedresults. Performed By: #### L500.0140 0, L500.89402, L500.17952, L500.10303, L550.82915 ####[facility] YFUYIANXVB1540 [place], [place] [address]Sc# [phone] Globulin 3.2 2.2-4.2 GM/DL Normal 11-24-2016 [facility] (40161) Comment: Order Comment: [place]: M Performed By: #### L500.0140 0, L500.05836, L500.90264, L500.33972, L550.45937 ####[facility] YCQQXNGYKW2729 [place], [place] [address]Hu# [phone] Glucose mass conc 99 70-100 MG/DL Normal 11-24-2016 [facility] (04612) Comment: Order Comment: [place]: M Result Comment: 09-405-Vdtlx l Fasting; 941-923-Vhxxwcyx Fasting; greaterthan 126 on more than one result- Diabetes. ADA guidelines Performed By: #### L500.0140 0, L500.32166, L500.52561, L500.12481, L550.74742 ####[facility] TIZOYWICPE8178 [place], [place] [address]El# [phone] Potassium molar conc 4.0 3.5-5.1 MMOL/L Normal 7 [facility] (06204) Comment: Order Comment: [place]: M Performed By: #### L500.0140 0, L500.53590, L500.41074, L500.41335, L550.88360 ####[facility] CCJVNYJKUY3046 [place], [place] [address]Cz# [phone] Protein 6.3 6.0-8.5 GM/DL Normal 11-24-2016 [facility] (06019) Comment: Order Comment: [place]: M Performed By: #### L500.0140 0, L500.64681, L500.11578, L500.38598, L550.43916 ####[facility] BQHAJAKYEG4184 [place], [place] [address]Rh# [phone] SGOT (AST) 27 8-34 U/L Normal 11-24-2016 [facility] (28999) Comment: Order Comment: [place]: M Performed By: #### L500.0140 0, L500.94564, L500.60474, L500.74872, L550.37349 ####[facility] NTQKNFZIJX9251 [place], [place] [address]Xq# [phone] Sodium 139 136-145 MMOL/L Normal 11-24-2016 [facility] (14254) Comment: Order Comment: [place]: M Performed By: #### L500.0140 0, L500.79949, L500.93087, L500.01039, L550.17715 ####[facility] OLLPTTOKFG0240 [place], [place] [address]Gy# [phone] Urea nitrogen 12 7-26 MG/DL Normal 11-24-2016 [facility] (80839) Comment: Order Comment: [place]: M Performed By: #### L500.0140 0, L500.21471, L500.12993, L500.19994, L550.89514 ####[address] [place], [place] [address]Jc# [phone] cbc w/diff on 11-24 BAND % 20.0 0-7 % High 11-24-2016 [facility] (61441) Comment: Order Comment: [place]: M Performed By: #### L500.0140 0, L500.02717, L500.10198, L500.80418, L550.13951 ####[facility] [place], [place] [address]Ho# [phone] BAND ABS 0.90 K/CU MM Normal 11-24-2016 [facility] (78657) Comment: Order Comment: [place]: M Performed By: #### L500.0140 0, L500.92105, L500.37315, L500.43800, L550.01057 ####[facility] SBNJAXECBJ3612 [place], [place] [address]Kk# [phone] EOS ABS 0.50 0-0.5 K/CU MM Normal 11-24-2016 [facility] (73025) Comment: Order Comment: [place]: M Performed By: #### L500.0140 0, L500.47671, L500.28397, L500.91882, L550.58847 ####[facility] OVFRJQVEKK6970 [place], [place] [address]Rn# [phone] Eosinophils/100 leukocytes 11.0 0-5 % High [facility] (28526) Comment: Order Comment: [place]: M Performed By: #### L500.0140 0, L500.67483, L500.18146, L500.90342, L550.85186 ####[facility] I[address] [place] [address]Yd# [phone] Lymphocytes PRESENT Normal 11-24-2016 [facility] (76940) Comment: Order Comment: [place]: M Performed By: #### L500.0140 0, L500.59418, L500.60800, L500.37516, L550.67200 ####[address] [address]Rz# [phone] Lymphocytes 1.98 0.9-4.4 K/CU MM Normal 11-24-2016 [facility] (48750) Comment: Order Comment: [place]: M Performed By: #### L500.0140 0, L500.28155, L500.12854, L500.45577, L550.70496 ####[address] [place], [place] [address]Fj# [phone] Lymphocytes/100 leukocytes 44.0 20-40 % High [facility] (25105) Comment: Order Comment: [place]: M Performed By: #### L500.0140 0, L500.68256, L500.69085, L500.00917, L550.04662 ####[address] [address]Ia# [phone] MONO ABS 0.27 0.1-1.1 K/CU MM Normal 11-24-2016 [facility] (90868) Comment: Order Comment: [place]: M Performed By: #### L500.0140 0, L500.92068, L500.95357, L500.59231, L550.60898 ####[facility] QSPRZLCDNX1222 [place], [place] [address]Fl# [phone] Monocytes/100 leukocytes 6.0 2-10 % Normal 11-24 [facility] (15569) Comment: Order Comment: [place]: M Performed By: #### L500.0140 0, L500.64933, L500.25550, L500.11871, L550.09095 ####[address] [place], [place] [address]Di# [phone] Neutrophils 0.86 2.0-8.3 K/CU MM Low 11-24-2016 [facility] (41022) Comment: Order Comment: [place]: M Performed By: #### L500.0140 0, L500.87389, L500.07013, L500.05234, L550.01728 ####[address] [place], [place] [address]Ty# [phone] Neutrophils/100 WBC Auto (Bld) 19.0 45-75 % Low 11-24-2016 [facility] (00 000) Comment: Order Comment: [place]: M Performed By: #### L500.0140 0, L500.73300, L500.43607, L500.29393, L550.93600 ####[facility] NPNEKWSBWF8204 [place], [place] [address]Wl# [phone] PLT EST ADEQUATE Normal 11-24-2016 [facility] (67488) Comment: Order Comment: [place]: M Performed By: #### L500.0140 0, L500.07840, L500.93358, L500.48808, L550.85390 ####[facility] FLOASDWPGC4263 [place], [place] [address]Lj# [phone] POLY 1+ Normal 11-24-2016 [facility] (84718) Comment: Order Comment: [place]: M Performed By: #### L500.0140 0, L500.28150, L500.04382, L500.61619, L550.64955 ####[facility] ZHSBMXPXNW5370 [place], [place] [address]Wj# [phone] Erythrocyte distribution 13.1 11-14.5 % Normal 11-24 [facility] width Auto Ratio (RBC) [place] (14617) Comment: Order Comment: [place]: M Performed By: #### L500.0140 0, L500.14894, L500.86309, L500.89914, L550.51552 ####[facility] DKTNSJSROW4158 [place], [place] [address]Rv# [phone] Erythrocytes (RBC) 3.85 4.50-6.00 M/CU MM Low 11-24-2016 [facility] (37106) Comment: Order Comment: [place]: M Performed By: #### L500.0140 0, L500.04460, L500.90481, L500.62782, L550.80310 ####[facility] RJJSUMIVKG4699 [place], [place] [address]Ly# [phone] Erythrocytes (RBC) 0.0 Less than 1 % Normal [address] [place] [address] ([address]) Comment: Order Comment: [place]: M Performed By: #### L500.0140 0, L500.03675, L500.84975, L500.13337, L550.77897 ####[facility] GDWIMPVLQV6793 [place], [place] [address]Uf# [phone] Hematocrit (HCT) 33.0 41.0-53.0 % Low 11-24-2016 [facility] (46211) Comment: Order Comment: [place]: M Performed By: #### L500.0140 0, L500.04278, L500.04328, L500.92741, L550.19647 ####[facility] UQKNHHCEOP7152 [place], [place] [address]Gu# [phone] Hemoglobin mass conc (Bld) 11.1 13.5-17.5 G/DL Low [facility] (00 000) Comment: Order Comment: [place]: M Performed By: #### L500.0140 0, L500.23803, L500.34429, L500.28145, L550.40708 ####[facility] TNUKRZFEYG8416 [place], [place] [address]Qt# [phone] MCHC mass conc (RBC) 33.6 32.0-36.0 GM/DL Normal 201 7 [facility] ( 000) Comment: Order Comment: [place]: M Performed By: #### L500.0140 0, L500.95259, L500.30461, L500.06043, L550.61205 ####[facility] CJOHACVHWM5451 [place], [place] [address]Rv# [phone] MCV 85.7 80.0-99.0 fl Normal 11-24-2016 [facility] (71375) Comment: Order Comment: [place]: M Performed By: #### L500.0140 0, L500.96931, L500.32978, L500.67481, L550.95121 ####[facility] IZPXPXYZHB3418 [place], [place] [address]Dw# [phone] Platelet mean volume (PMV) 9.4 9.4-12.4 fL Normal [facility] ( 000) Comment: Order Comment: [place]: M Performed By: #### L500.0140 0, L500.41922, L500.70546, L500.57911, L550.47321 ####[facility] VMIEHGIYXH7200 [place], [place] [address]Ap# [phone] Platelets 163 150-450 K/CU MM Normal 11-24-2016 [facility] (25630) Comment: Order Comment: [place]: M Performed By: #### L500.0140 0, L500.38156, L500.15359, L500.95748, L550.15757 ####[facility] GWNQDPQRXI7104 [place], [place] [address]An# [phone] WBC (Leukocytes) 4.5 4.5-11.0 K/CU MM Normal 11-24-2016 [facility] [place] (46379) Comment: Order Comment: [place]: M Performed By: #### L500.0140 0, L500.98491, L500.04151, L500.40189, L550.26906 ####[facility] HAMKDOJXJJ7875 [place], [place] [address]Lm# [phone] wound culture on 13-11-27 WOUND CULTURE GRAM STAIN RARE WBC'S NO ORGANISMS N ormal 11-23-2016 [facility] SEENORGANISM 1: [facility] AUREUS,METHICILLIN ( 15690) 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 11-23-11-23-2 017 [facility] (91940) gfr est on IF AMER Greater than 60 Normal 11-23-[address] [place] [address] (26765) Comment: Order Comment: [place]: M Performed By: #### L500.0140 0, L500.49695, L500.66030, L500.06339, L550.98705 ####[facility] JGZMUHJSEY2342 [place], [place] [address]Di# [phone] IF non-AFR AMER Greater than 60 Normal 11-23-[address] [place] [address] (35046) Comment: Order Comment: [place]: M Performed By: #### L500.0140 0, L500.05889, L500.21676, L500.93983, L550.04083 ####[facility] VKFASKTBPE4916 [place], [place] [address]Nc# [phone] cmp on 2016-11-22 Alanine aminotransferase (ALT) 37 13-61 IU/L Normal 11-22-2016 [facility] (00 000) Comment: Order Comment: [place]: M Performed By: #### L500.0140 0, L500.41777, L500.54154, L500.03955, L550.36415 ####[facility] DIJZTCBTLL0749 [place], [place] [address]Ru# [phone] Albumin 3.4 3.2-5.0 GM/DL Normal 11-22-2016 [facility] (33352) Comment: Order Comment: [place]: M Performed By: #### L500.0140 0, L500.71994, L500.64488, L500.17841, L550.91432 ####[facility] NMAYZGDZSY3438 [place], [place] [address]Ry# [phone] Albumin/Globulin Ratio 1.0 0.8-2.0 {ratio} Normal [address] [place] [address] (00 000) Comment: Order Comment: [place]: M Performed By: #### L500.0140 0, L500.21382, L500.51243, L500.47390, L550.81636 ####[facility] PWHJOHMTKA8585 [place], [place] [address]Tb# [phone] ALK PHOS 148 45-117 U/L High 11-22-2016 [facility] (96963) Comment: Order Comment: [place]: M Performed By: #### L500.0140 0, L500.66600, L500.49836, L500.55422, L550.37836 ####[facility] NZSQOZYLUH1002 [place], [place] [address]Gi# [phone] Anion gap 5 5-16 MMOL/L Normal 11-22-2016 [facility] (06088) Comment: Order Comment: [place]: M Performed By: #### L500.0140 0, L500.24426, L500.14069, L500.25387, L550.03988 ####[facility] [id number] [place], [place] [address]Dg# [phone] BILI TOTAL 0.4 0.2-1.0 MG/DL Normal 11-22-2016 [facility] (64002) Comment: Order Comment: [place]: M Performed By: #### L500.0140 0, L500.59768, L500.00135, L500.17248, L550.58720 ####[facility] [id number] [place], [place] [address]Ds# [phone] BUN/Creatinine Ratio 19 15-24 mg/mg Normal 7 [facility] (67752) Comment: Order Comment: [place]: M Performed By: #### L500.0140 0, L500.93970, L500.93845, L500.31391, L550.37907 ####[facility] [id number] [place], [place] [address]Yx# [phone] Calcium 9.1 8.5-10.1 MG/DL Normal 11-22-2016 [facility] (98938) Comment: Order Comment: [place]: M Performed By: #### L500.0140 0, L500.68182, L500.08206, L500.66304, L550.39588 ####[facility] [id number] [place], [place] [address]Wq# [phone] Chloride 101 98-107 MMOL/L Normal 11-22-2016 [facility] (26056) Comment: Order Comment: [place]: M Performed By: #### L500.0140 0, L500.02963, L500.60640, L500.38319, L550.65012 ####[facility] [id number] [place], [place] [address]Es# [phone] CO2 31 21-32 MMOL/L Normal 11-22-2016 [facility] (35525) Comment: Order Comment: [place]: M Performed By: #### L500.0140 0, L500.12737, L500.45744, L500.83136, L550.04443 ####[facility] [id number] [place], [place] [address]Yj# [phone] Creatinine 0.738 0.670-1.170 MG/DL Normal 11-22-2016 [facility] (30535) Comment: Order Comment: [place]: M Result Comment: Patients rec eiving either N-Acetylcysteine (NAC) orMetamizole prior to venipu ncture, may have falsely depressedresults. Performed By: #### L500.0140 0, L500.55753, L500.69492, L500.02061, L550.00471 ####[facility] [id number] [place], [place] [address]Mf# [phone] Globulin 3.3 2.2-4.2 GM/DL Normal 11-22-2016 [facility] (18410) Comment: Order Comment: [place]: M Performed By: #### L500.0140 0, L500.83602, L500.29264, L500.11511, L550.82674 ####[facility] [id number] [place], [place] [address]Ud# [phone] Glucose mass conc 97 70-100 MG/DL Normal 11-22-2016 [facility] (68070) Comment: Order Comment: [place]: M Result Comment: 07-017-Xcqok l Fasting; 129-357-Gcyksyvf Fasting; greaterthan 126 on more than one result- Diabetes. ADA guidelines Performed By: #### L500.0140 0, L500.68757, L500.35278, L500.46286, L550.77954 ####[facility] [id number] [place], [place] [address]Vt# [phone] Potassium molar conc 4.1 3.5-5.1 MMOL/L Normal 7 [facility] (72856) Comment: Order Comment: [place]: M Performed By: #### L500.0140 0, L500.94594, L500.31537, L500.32116, L550.39835 ####[facility] [id number] [place], [place] [address]Pz# [phone] Protein 6.7 6.0-8.5 GM/DL Normal 11-22-2016 [facility] (71997) Comment: Order Comment: [place]: M Performed By: #### L500.0140 0, L500.78551, L500.66627, L500.54126, L550.24945 ####[facility] [id number] [place], [place] [address]Pk# [phone] SGOT (AST) 30 8-34 U/L Normal 11-22-2016 [facility] (20931) Comment: Order Comment: [place]: M Performed By: #### L500.0140 0, L500.18638, L500.30415, L500.94560, L550.86311 ####[facility] [id number] [place], [place] [address]We# [phone] Sodium 136 136-145 MMOL/L Normal 11-22-2016 [facility] (02875) Comment: Order Comment: [place]: M Performed By: #### L500.0140 0, L500.08457, L500.95696, L500.01709, L550.02972 ####[address] [place], [place] [address]Xu# [phone] Urea nitrogen 14 7-26 MG/DL Normal 11-22-2016 [facility] (86986) Comment: Order Comment: [place]: M Performed By: #### L500.0140 0, L500.89729, L500.20679, L500.16305, L550.34102 ####[address] [address]Ju# [phone] cbc w/diff on 11-22 BASO ABS 0.10 0-0.2 K/CU MM Normal 11-22-2016 [facility] (06736) Comment: Order Comment: [place]: M Performed By: #### L500.0140 0, L500.18609, L500.45861, L500.32574, L550.60242 ####[address] [address]Wd# [phone] Basophils/100 WBC Auto (Bld) 1.5 0-2 % Normal 0 11-22-2016 [facility] (23603) Comment: Order Comment: [place]: M Performed By: #### L500.0140 0, L500.76560, L500.50194, L500.92555, L550.62887 ####[facility] QSTDVPJQKQ9017 [place], [place] [address]Qm# [phone] EOS ABS 0.50 0-0.5 K/CU MM Normal 11-22-2016 [facility] (42280) Comment: Order Comment: [place]: M Performed By: #### L500.0140 0, L500.83585, L500.02971, L500.12972, L550.61176 ####[address] [address]Kr# [phone] Eosinophils/100 leukocytes 9.0 0-5 % High [facility] (28436) Comment: Order Comment: [place]: M Performed By: #### L500.0140 0, L500.73262, L500.18976, L500.91941, L550.99200 ####[facility] OOWYADHHQH9757 [place], [place] [address]In# [phone] IMMATR GRAN ABS 0.00 Less than 2 K/CU MM Normal 11-22-2016 [facility] (00 000) Comment: Order Comment: [place]: M Performed By: #### L500.0140 0, L500.07810, L500.51437, L500.88534, L550.96062 ####[address] [address]Ke# [phone] IMMATURE GRAN % 0.8 Less than 2 % Normal 11-22-2016 [facility] (65356) Comment: Order Comment: [place]: M Performed By: #### L500.0140 0, L500.08457, L500.17302, L500.89008, L550.06013 ####[address] [address]Yh# [phone] Lymphocytes 2.40 0.9-4.4 K/CU MM Normal 11-22-2016 [facility] (07756) Comment: Order Comment: [place]: M Performed By: #### L500.0140 0, L500.33280, L500.56404, L500.45272, L550.53453 ####[address] [address]Ml# [phone] Lymphocytes/100 leukocytes 46.3 20-40 % High [facility] (23208) Comment: Order Comment: [place]: M Performed By: #### L500.0140 0, L500.16692, L500.89200, L500.61820, L550.71431 ####[address] [address]Ni# [phone] MONO ABS 0.40 0.1-1.1 K/CU MM Normal 11-22-2016 [facility] (68622) Comment: Order Comment: [place]: M Performed By: #### L500.0140 0, L500.97603, L500.87454, L500.55997, L550.60107 ####[address] [place], [place] [address]Bc# [phone] Monocytes/100 leukocytes 7.5 2-10 % Normal 11-22 [facility] (10149) Comment: Order Comment: [place]: M Performed By: #### L500.0140 0, L500.11368, L500.99359, L500.94217, L550.22006 ####[address] [address]Vm# [phone] [place] NORMOCYTIC Normal 11-22-2016 [facility] (81923) Comment: Order Comment: [place]: M Performed By: #### L500.0140 0, L500.36325, L500.17432, L500.66093, L550.11420 ####[facility] [place], [place] [address]Gb# [phone] Neutrophils 1.80 2.0-8.3 K/CU MM Low 11-22-2016 [facility] (40498) Comment: Order Comment: [place]: M Performed By: #### L500.0140 0, L500.44612, L500.93774, L500.35541, L550.83482 ####[facility] [id number] [place], [place] [address]Qj# [phone] Neutrophils/100 WBC Auto (Bld) 34.9 45-75 % Low 11-22-2016 [facility] (00 000) Comment: Order Comment: [place]: M Performed By: #### L500.0140 0, L500.09810, L500.17894, L500.27029, L550.90308 ####[facility] RNPACWHTCF4605 [place], [place] [address]Zm# [phone] PLT EST ADEQUATE Normal 11-22-2016 [facility] (38058) Comment: Order Comment: [place]: M Performed By: #### L500.0140 0, L500.31365, L500.99543, L500.89982, L550.57782 ####[facility] SBQPQGMFHD4073 [place], [place] [address]Kz# [phone] POLY 1+ Normal 11-22-2016 [facility] (89350) Comment: Order Comment: [place]: M Performed By: #### L500.0140 0, L500.49130, L500.25996, L500.04721, L550.64728 ####[address] [address]Ww# [phone] Erythrocyte distribution 12.8 11-14.5 % Normal 11-22 [facility] width Auto Ratio (RBC) [place] (89982) Comment: Order Comment: [place]: M Performed By: #### L500.0140 0, L500.19243, L500.26469, L500.59433, L550.14980 ####[facility] TCULMDYKFM9936 [place], [place] [address]Fo# [phone] Erythrocytes (RBC) 4.24 4.50-6.00 M/CU MM Low 11-22-2016 [facility] (15762) Comment: Order Comment: [place]: M Performed By: #### L500.0140 0, L500.42991, L500.77937, L500.60981, L550.11864 ####[facility] JOJDDCRNCM8474 [place], [place] [address]Yn# [phone] Erythrocytes (RBC) 0.0 Less than 1 % Normal 7 [facility] [place] (06410) Comment: Order Comment: [place]: M Performed By: #### L500.0140 0, L500.30327, L500.86619, L500.42651, L550.50967 ####[facility] FUBFFCHWCD5521 [place], [place] [address]Or# [phone] Hematocrit (HCT) 35.9 41.0-53.0 % Low 11-22-2016 [facility] (30508) Comment: Order Comment: [place]: M Performed By: #### L500.0140 0, L500.80539, L500.64963, L500.17919, L550.16167 ####[facility] SGNIATEVQQ7945 [place], [place] [address]Qz# [phone] Hemoglobin mass conc (Bld) 12.2 13.5-17.5 G/DL Low [facility] (00 000) Comment: Order Comment: [place]: M Performed By: #### L500.0140 0, L500.06275, L500.59211, L500.42646, L550.53000 ####[facility] XSSJCNEPCW5219 [place], [place] [address]Gt# [phone] MCHC mass conc (RBC) 34.0 32.0-36.0 GM/DL Normal 7 [facility] (00 000) Comment: Order Comment: [place]: M Performed By: #### L500.0140 0, L500.12983, L500.24725, L500.35246, L550.55531 ####[facility] PPQZTKJNFS8777 [place], [place] [address]Fo# [phone] MCV 84.7 80.0-99.0 fl Normal 11-22-2016 [facility] (12579) Comment: Order Comment: [place]: M Performed By: #### L500.0140 0, L500.14270, L500.93790, L500.17863, L550.95230 ####[facility] ZTVUYAHWHH0645 [place], [place] [address]Uc# [phone] Platelet mean volume (PMV) 9.0 9.4-12.4 fL Low [facility] (06880) Comment: Order Comment: [place]: M Performed By: #### L500.0140 0, L500.60821, L500.46527, L500.31686, L550.46658 ####[facility] GWJKIKRXEP6192 [place], [place] [address]Mm# [phone] Platelets 189 150-450 K/CU MM Normal 11-22-2016 [facility] (05429) Comment: Order Comment: [place]: M Performed By: #### L500.0140 0, L500.59869, L500.28225, L500.27716, L550.67996 ####[address] [address]Qw# [phone] WBC (Leukocytes) 5.2 4.5-11.0 K/CU MM Normal 11-22-2016 [facility] (56576) Comment: Order Comment: [place]: M Performed By: #### L500.0140 0, L500.26227, L500.49225, L500.12732, L550.13961 ####[address] [address]Hq# [phone] ur drug abuse on 12-11-24 UR AMPH NEGATIVE Suibrd=1298 Normal 11-20-2016 [facility] (67592) Comment: Order Comment: [place]: M Performed By: #### L500.0140 0, L500.56174, L500.88055, L500.68148, L550.42404 ####[facility] IVHRSDMSRM9468 [place], [place] [address]Nz# [phone] UR ANNA NEGATIVE Cgaeck=259 Normal 11-20-2016 [facility] (97395) Comment: Order Comment: [place]: M Performed By: #### L500.0140 0, L500.57897, L500.28986, L500.33796, L550.13914 ####[facility] [address]NEH[address] [place] [address]Hk# [phone] UR JANIS NEGATIVE Mfwalu=457 Normal 11-20-2016 [facility] (88480) Comment: Order Comment: [place]: M Performed By: #### L500.0140 0, L500.51992, L500.97666, L500.48277, L550.86404 ####[facility] GRAFIGQBNM6013 [place], [place] [address]He# [phone] UR MOY/THC NEGATIVE Cutoff=50 Normal 11-20-2016 [facility] (70120) Comment: Order Comment: [place]: M Performed By: #### L500.0140 0, L500.81719, L500.38490, L500.77873, L550.01487 ####[address] [place], [place] [address]Ef# [phone] UR AFSHIN NEGATIVE Tfpagk=059 Normal 11-20-2016 [facility] (42129) Comment: Order Comment: [place]: M Performed By: #### L500.0140 0, L500.97300, L500.96531, L500.49577, L550.40671 ####[facility] PAJHKDASAN4267 [place], [place] [address]Wy# [phone] UR OPIAT POSITIVE Umrsbg=929 Normal 11-20-2016 [facility] (61846) Comment: Order Comment: [place]: M Performed By: #### L500.0140 0, L500.39569, L500.92554, L500.13433, L550.90004 ####[facility] CEYFBODYLD3328 [place], [place] [address]Xj# [phone] UR PCP NEGATIVE Cutoff=25 Normal 11-20-2016 [facility] (48531) Comment: Order Comment: [place]: M Performed By: #### L500.0140 0, L500.75743, L500.83018, L500.73935, L550.08195 ####[facility] KGSUCYSPBW5821 [place], [place] [address]Sh# [phone] DRAB COMMENT Normal 11-20-2016 [facility] (71780) Comment: Order Comment: [place]: M Result Comment: Urine Drugs of Abuse results are qualitative, providing apreliminary analytical resu lt. A positive result for anassay should be confirmed by another nonimmu nological,reference method. A negative result indicates that theassay mate rial is either not present, or present at levelsbelow the cutoff thres hold for the analytical method range(AMR) validation. Performed By: #### L500.0140 0, L500.80348, L500.13120, L500.29599, L550.32513 ####[facility] QALLUSZEOV4704 [place], [place] [address]Fb# [phone] wsr/mod on WSR/MOD 16 0-15 MM/HR High 11-17-2016 [facility] (83136) Comment: Order Comment: [place]: M: \ Performed By: #### L200.0720 0 ####[facility] XPPRBMGTMH8999 [place], [place] [address]Vf# zinc on 2016-11-16 ZINC 79 56-134 ug/dL Normal 11-16-2016 [facility] (55890) Comment: Order Comment: [place]: M Result Comment: Detection Li jesus alberto = 5Performed At: [facility] Usxkekqlgz[address] [place], [place] [address]Hmpbvqr Joaquín Hayden [id number] Performed By: #### L550.0740 0 ####[facility] CLNLHFK6959 [place] [address]Qa# prealb on 2016-10-27 9 PREALB 30 20-40 MG/DL Normal 11-14-2016 [facility] (69351) Comment: Order Comment: [place]: M Performed By: #### L500.0140 0, L500.65566, L500.57245, L500.77821, L550.10971 ####[facility] UTBPGGBERG0282 [place], [place] [address]Sn# [phone] phos on 2016-11-14 Phosphate 4.9 2.5-4.9 MG/DL Normal 11-14-2016 [facility] (02068) Comment: Order Comment: [place]: M Performed By: #### L500.0140 0, L500.98791, L500.12117, L500.62055, L550.46888 ####[facility] NHOYIJSLHQ1633 [place], [place] [address]Mn# [phone] magnesium on 11-14 Magnesium 2.2 1.6-2.6 MG/DL Normal 11-14-2016 [facility] (15242) Comment: Order Comment: [place]: M Performed By: #### L500.0140 0, L500.52935, L500.68495, L500.63483, L550.61934 ####[facility] BUHXMDHRWN3578 [place], [place] [address]Vy# [phone] hp.ims.con on 11-14 CONSULTATION-H&P This is a preliminary report Norm al 11-14-2016 [facility] only, as the practitioner review [facility] [place] and authentication has not (23777) occurred. HP.IMS.CON [facility] Patient Normal 11-14-2016 [facility] Name: LINDSAY DARLING [id number] [facility] [address] Date of : ([address]) [address] [address] Unit Number: [id number] Number: [id number] Patient Status: REG RCRAttending Doctor: Jeane Gilman DOService Date: 11/14/16 1258History of Present IllnessConsulted ProviderFiSierra murry MDHistory of Present IllnessSara is a 26 yr old male, with a history of IVDU as well as chronic Hep C (untreated), who has been transferred here from [facility] due to osteomyelitis of the rightclavicle, [...] fevers.Finally, he went to the hospital in [place], where he was taken up to the [...] fracture) MRSA wound infection.He was admitted at [place] and is now s.p removal of hardware from the right clavicle, on11/07.He was treated with IV Vanc while at [place], and a wound vac has been placed.Today, [...] IF AMER Greater than 60 Normal 11-15-[address] [place] [address] (04010) Comment: Order Comment: [place]: M Performed By: #### L500.0140 0, L500.49579, L500.62590, L500.79637, L550.22286 ####[facility] GIGTBDFXDA7802 [place], [place] [address]Hu# [phone] IF non-AFR AMER Greater than 60 Normal 11-15-[address] [place] [address] (56258) Comment: Order Comment: [place]: M Performed By: #### L500.0140 0, L500.20222, L500.18743, L500.34013, L550.50710 ####[facility] FRVYDQGKQO4285 [place], [place] [address]Pz# [phone] cmp on 2016-11-14 Alanine aminotransferase (ALT) 33 13-61 IU/L Normal 11-14-2016 [facility] (00 000) Comment: Order Comment: [place]: M Performed By: #### L500.0140 0, L500.82352, L500.60470, L500.32337, L550.55653 ####[facility] XVRAWTEWQX0475 [place], [place] [address]Go# [phone] Albumin 3.8 3.2-5.0 GM/DL Normal 11-14-2016 [facility] (11103) Comment: Order Comment: [place]: M Performed By: #### L500.0140 0, L500.19632, L500.55720, L500.49545, L550.66452 ####[facility] DIMRCAMQTB4825 [place], [place] [address]Kj# [phone] Albumin/Globulin Ratio 1.0 0.8-2.0 {ratio} Normal 017 [facility] (00 000) Comment: Order Comment: [place]: M Performed By: #### L500.0140 0, L500.98977, L500.79538, L500.48253, L550.48544 ####[facility] AZBKUSPYCA9933 [place], [place] [address]Kc# [phone] ALK PHOS 123 45-117 U/L High 11-14-2016 [facility] (97819) Comment: Order Comment: [place]: M Performed By: #### L500.0140 0, L500.32330, L500.40427, L500.13439, L550.88938 ####[facility] BVIAKPYXVA2257 [place], [place] [address]Rb# [phone] Anion gap 8 5-16 MMOL/L Normal 11-14-2016 [facility] (47910) Comment: Order Comment: [place]: M Performed By: #### L500.0140 0, L500.33620, L500.46207, L500.69566, L550.00502 ####[facility] WIJIJLELLM5689 [place], [place] [address]Ss# [phone] BILI TOTAL 0.2 0.2-1.0 MG/DL Normal 11-14-2016 [facility] (97429) Comment: Order Comment: [place]: M Performed By: #### L500.0140 0, L500.29169, L500.64982,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 UNRECOGNIZED SECTION INFORMATION SOURCE DATE CREATED AUTHOR AUTHOR'S ORGANIZATIO N 10/23/2017 [facility] ation DATE CREATED AUTHOR AUTHOR'S ORGANIZATIO N 10/23/2017 [facility] DATE CREATED AUTHOR AUTHOR'S ORGANIZATIO N 11/16/2017 [facility] DATE CREATED AUTHOR AUTHOR'S ORGANIZATIO N 11/12/2018 [facility] DATE CREATED AUTHOR AUTHOR'S ORGANIZATIO N 12/29/2019 [facility] black
--- OUTSIDE RECORDS SUMMARY | 2020-02-09 16:51 | XMS RPT_ITS | CCD ---
:1990 External Reference #:[id number] Author Organization [facility] Care Team Providers Name Role Phone ALANNALISA, R Unavailable Unavailable PHYSICIAN Unavailable Unavailable Annie DIMAS Unavailable Unavailable Kim Dooley Unavailable Curtis Gilman Unavailable Unavailable Андрей Unavailable Unavailable PROVIDER Unavailable Unavailable No Unavailable Unavailable Kim Dooley Unavailable Allergies Reported Allergen Reaction(s) Severity Date of Onset Location Bee anaphylaxis Critical, Critical 09-13-2016 - [facility] (1 6395) penicillin anaphylaxis Critical, Critical 09-13-2016 [facility] (7 1733) Problems Active Problems Category Problem Name Status Date Location Fracture of upper limb Displaced fracture of Active [address] [place] [address] shaft of right Sports Medici ne and clavicle, initial Orthopaedi cs (13184) encounter for closed fracture Hepatitis Unspecified viral Active 11-12-2017 - [facility] hepatitis C without (67271) hepatic coma Sprains and strains Ulnar collateral Active 11-12-2017 - [facility] ligament sprain of (18032) left elbow, initial encounter Substance-related Nicotine dependence, Active 11-12-2017 - [facility] disorders unspecified, (85881) uncomplicated Unclassified 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 Results Result Name Value Range Unit Interpretation Flag [facility] CNPN Telephone (UCWSTR) Normal 12-29-2019 [place] [facility] MARIELAAMOSENSLINDSAY ([id number]) 1990 [facility] Date Time Provider Department (54294) 12/29/19 LINETTE BRITO) [facility] During your visit today, we [...] 2019-12-28 Syphilis Interp Cannot exclude recent Normal [facility] Treponemal infection if [place] ([address]30) specimen collected within 7 to 10 days after appearance of suspect lesions or 2 to 3 weeks after an exposure. Clinical correlation is required. Comment: Performed By: #### SYPHTX ## ## [facility] [address] [place], [place] [address] Syphilis Screen Non Reactive Non Reactive Normal 12-28-19 [facility] [place] (33919) Comment: Performed By: #### SYPHTX ## ## [facility] [address] [place], [place] [address] progress on 2019-11 PROGRESS HNO ID: [id number] Normal 12-28-2019 [place] Author: Tristan Zhang [facility]: ? [place] Author Type: Physician ([id number]) Type: Progress Notes Filed: 12/28/2019 10:05 AM [...] 2019-12-28 CNOV Office Visit (UCWSTR) Normal 12-28-[address] [place] [address] LINDSAY Malagon ([id number]) 1990 [facility] Date Time Provider Department (34167) 12/28/19 9:30 AM TRISTAN ZHANG [facility] During your visit today, we [...] [A63.0] Order(s):SYPHILIS TOTAL W/REFLEX [SQSYPHTX] Order #: [id number] FUTURE CONSULT TO UROLOGY [9041] Order #: [id number]: 1 FUTURE Problem List As Of Date [...] CULTURE URINE --> Status: F Normal 11-06-2018 [facility] growth (<1,000 CFU/ml). (72076) Comment: Order Comment: Specimen Sour ce Comment:Urine, clean catch Performed By: #### C/UR #### [facility] [address] [place] [phone] drugs of abuse on Opiates, Ur Negative Normal 11-05-2018 [facility] (67092) Comment: Performed By: #### CUA2, DRG A4 #### [address] [place] [address] Phencyclidine (PCP), Ur Negative Normal 2018 [facility] (05232) Comment: Result Comment: The expected value for [...] Performed By: #### CUA2, DRG A4 #### [address] [address] Methadone, Ur Negative Normal 11-05-2018 [facility] (00274) Comment: Performed By: #### CUA2, DRG A4 #### [address] [place] [address] Benzodiazepines, Ur Negative Normal 11-05-2018 [facility] (54868) Comment: Performed By: #### CUA2, DRG A4 #### [address] [place] [address] Cocaine, Ur Negative Normal 11-05-2018 [facility] (49065) Comment: Performed By: #### CUA2, DRG A4 #### [address] [place] [address] Amphetamines, Ur Negative Normal 11-05-2018 [facility] (96761) Comment: Performed By: #### CUA2, DRG A4 #### [address] [place] [address] Barbiturates, Ur Negative Normal 11-05-2018 [facility] (64626) Comment: Performed By: #### CUA2, DRG A4 #### [facility] [address] [place] [address] Oxycodone/Oxymorphine,Ur Negative Normal 11-05 [facility] (08391) Comment: Performed By: #### CUA2, DRG A4 #### [facility] [address] [place] [address] ct abdomen/pelvis w/o contrast on 2018-11-05 CT Abdomen/Pelvis w/o Patient Name: LINDSAY DARLING Normal 11-05-2018 [facility] Contrast System (01678) CT Exam Date/Time 11/05/2018 12:58:[address] Abdomen/Pelvis (No PO, No IV) Ordering Physician MD ALEXYS, [facility] Accession Number [id number] CPT4 Codes 24433 (CT Abdomen/Pelvis (No PO, No IV)) Reason [...] (U) Sl. Cloudy Normal 11-05-2018 [facility] (06029) Comment: Result Comment: Reference Ra nge: Clear Performed By: #### CUA2, DRG A4 #### [facility] [address] [place] [address] Bilirubin,Urine Negative Normal 11-05-2018 [facility] (10390) Comment: Result Comment: Reference Ra nge: Negative Performed By: #### CUA2, DRG A4 #### [facility] [address] [place] [address] Color (U) Yellow Normal 11-05-2018 [facility] (98604) Comment: Result Comment: Reference Ra nge: Lt. Yellow Performed By: #### CUA2, DRG A4 #### [address] [place] [address] Glucose Ql (U) NEG (Normal) Normal 11-05-2018 [facility] (82191) Comment: Result Comment: Reference Ra nge: Normal (<70) Performed By: #### CUA2, DRG A4 #### [address] [address] Ketone,Urine Negative Normal 11-05-2018 [facility] (30241) Comment: Result Comment: Reference Ra nge: Negative Performed By: #### CUA2, DRG A4 #### [address] [address] Leukocytes,Urine NEG Normal 11-05-2018 [facility] (67365) Comment: Result Comment: Reference Ra nge: Negative Performed By: #### CUA2, DRG A4 #### [address] [address] Nitrites,Urine NEG Normal 11-05-2018 [facility] (72646) Comment: Result Comment: Reference Ra nge: Negative Performed By: #### CUA2, DRG A4 #### [address] [place] [address] Occult Blood,Urine Negative Normal 11-05-2018 [facility] (70816) Comment: Result Comment: Reference Ra nge: Negative Performed By: #### CUA2, DRG A4 #### [address] [place] [address] pH (U) 8.0 5.0-8.0 Normal 11-05-2018 [facility] (01919) Comment: Performed By: #### CUA2, DRG A4 #### [address] [address] Protein (U) [Mass/Vol] NEG mg/dL Normal 019 [facility] (95025) Comment: Result Comment: Reference Ra nge: Negative Performed By: #### CUA2, DRG A4 #### [address] [place] [address] Specific [place],Urine 1.010 1.005-1.030 Normal 11-05 [facility] (07262) Comment: Performed By: #### CUA2, DRG A4 #### [address] [place] [address] Urobilinogen,Urine Normal (0.2) Normal 11-06-19 [facility] (80566) Comment: Result Comment: Reference Ra nge: Normal (0-1) Performed By: #### CUA2, DRG A4 #### [address] [address] basic metabolic panel on 2018-11-05 Calcium [Mass/Vol] 9.4 8.4-10.4 mg/dL Normal 11-05-2018 [facility] (50840) Comment: Performed By: #### BMP3 #### [address] [address] Anion gap [Moles/Vol] 7 Normal 11-06-19 [facility] (77206) Comment: Performed By: #### BMP3 #### [address] [address] CO2 [Moles/Vol] 30 22-30 mmol/L Normal 11-05-2018 [facility] (53515) Comment: Performed By: #### BMP3 #### [address] [place] [address] Creatinine [Mass/Vol] 0.59 0.52-1.25 mg/dL Normal 11-06-19 [facility] (40057) Comment: Performed By: #### BMP3 #### [address] [place] [address] GFR/1.73 sq M > 60.0 >60 mL/min/{1.73_m2} Normal 9 [facility] predicted among Syst em (92395) blacks MDRD (S/P/Bld) [Vol rate/Area] Comment: Performed By: #### BMP3 #### [facility] [address] [place] [address] GFR/1.73 sq M > 60.0 >60 mL/min/{1.73_m2} Normal 9 [facility] predicted among Syst em (80061) non-blacks MDRD (S/P/Bld) [Vol rate/Area] Comment: Result Comment: Source- MDRD equation with creatinine calibration to IDMS(NKDEP) eGFR not recommended for carmine g dose adjustment Performed By: #### BMP3 #### [facility] [place] [address] Glucose [Mass/Vol] 105 70-100 mg/dL High 11-05-2018 [facility] (48782) Comment: Performed By: #### BMP3 #### [facility] [place] [address] Urea nitrogen [Mass/Vol] 12 7-20 mg/dL Normal 11-05 [facility] (99308) Comment: Performed By: #### BMP3 #### [facility] [place] [address] Chloride [Moles/Vol] 101 98-107 mmol/L Normal 9 [facility] (16412) Comment: Performed By: #### BMP3 #### [facility] [address] [place] [address] Potassium [Moles/Vol] 3.9 3.5-5.1 mmol/L Normal 11-06-19 19 [facility] (54255) Comment: Performed By: #### BMP3 #### [facility] [address] [place] [address] Sodium [Moles/Vol] 137 135-145 mmol/L Normal 11-05-2018 [facility] (01256) Comment: Performed By: #### BMP3 #### [facility] [address] [place] [address], [place] [address] replaced document: (p) culture, fungus w / [id number] on 2016-12-21 GE use only - for . Invalid Interpretation 12-21-2016 - [facility] [employer] import Code 12-21-2016 [facility] and when terms are not O rthopaedics (85318) otherwise specified wound culture on 13-12-18 WOUND CULTURE GRAM STAIN Normal 12-15-2016 [facility] FEW WBC'S [place] (00 000) FEW GRAM POSITIVE COCCI FEW GRAM POSITIVE BACILLUS ORGANISM 1: DIPHTHEROIDS QUANTITATION MODERATE ID TO FOLLOW NOT VIABLE FOR SENSITIVITY Comment: Order Comment: [place]: M Performed By: #### L500.0140 0, L500.12957, L500.43178, L500.77200, L550.80119 ####[facility] X[address]OMPGFKY4392 [place], [place] [address]Pt# [phone] gfr est on IF AMER Greater than 60 Normal 12-16-[address] [place] [address] (26490) Comment: Order Comment: [place]: M Performed By: #### L500.0140 0, L500.17547, L500.14761, L500.51784, L550.81679 ####[facility] F[address] [place] [address]Mc# [phone] IF non-AFR AMER Greater than 60 Normal 12-16-[address] [place] [address] (20702) Comment: Order Comment: [place]: M Performed By: #### L500.0140 0, L500.72598, L500.68987, L500.87855, L550.63227 ####[facility] U[address]NXCSCWG4405 [place], [place] [address]Tg# [phone] cmp on 2016-12-15 Alanine aminotransferase (ALT) 45 13-61 IU/L Normal 12-15-2016 [facility] [place] (00 000) Comment: Order Comment: [place]: M Performed By: #### L500.0140 0, L500.99618, L500.22062, L500.47554, L550.45226 ####[facility] WOGTUTYFYV2037 [place], [place] [address]Lx# [phone] Albumin 3.4 3.2-5.0 GM/DL Normal 12-15-2016 [facility] (72502) Comment: Order Comment: [place]: M Performed By: #### L500.0140 0, L500.09709, L500.50769, L500.74027, L550.36148 ####[facility] BJNFXTLQUR4624 [place], [place] [address]Gk# [phone] Albumin/Globulin Ratio 0.9 0.8-2.0 {ratio} Normal 017 [facility] (00 000) Comment: Order Comment: [place]: M Performed By: #### L500.0140 0, L500.20859, L500.12796, L500.07397, L550.46556 ####[facility] CVVEHSFYTU9396 [place], [place] [address]Hu# [phone] ALK PHOS 130 45-117 U/L High 12-15-2016 [facility] (02498) Comment: Order Comment: [place]: M Performed By: #### L500.0140 0, L500.19396, L500.67368, L500.18745, L550.85564 ####[facility] QCSHTUANJX2544 [place], [place] [address]Yv# [phone] Anion gap 9 5-16 MMOL/L Normal 12-15-2016 [facility] (02469) Comment: Order Comment: [place]: M Performed By: #### L500.0140 0, L500.86563, L500.03104, L500.74723, L550.86680 ####[facility] WZFQICAZXW0576 [place], [place] [address]Bd# [phone] BILI TOTAL 0.3 0.2-1.0 MG/DL Normal 12-15-2016 [facility] (82724) Comment: Order Comment: [place]: M Performed By: #### L500.0140 0, L500.44229, L500.30771, L500.03983, L550.62789 ####[facility] REOFQZSMWO1337 [place], [place] [address]Mw# [phone] BUN/Creatinine Ratio 18 15-24 mg/mg Normal 7 [facility] (01603) Comment: Order Comment: [place]: M Performed By: #### L500.0140 0, L500.46768, L500.94622, L500.69965, L550.97399 ####[facility] JJSNIXBCPN4998 [place], [place] [address]Ek# [phone] Calcium 9.8 8.5-10.1 MG/DL Normal 12-15-2016 [facility] (04356) Comment: Order Comment: [place]: M Performed By: #### L500.0140 0, L500.19553, L500.11844, L500.36434, L550.84743 ####[facility] BBRXESUWSD2241 [place], [place] [address]Xv# [phone] Chloride 100 98-107 MMOL/L Normal 12-15-2016 [facility] (21230) Comment: Order Comment: [place]: M Performed By: #### L500.0140 0, L500.51889, L500.22345, L500.68071, L550.32038 ####[facility] QKISWULYUG2137 [place], [place] [address]Om# [phone] CO2 30 21-32 MMOL/L Normal 12-15-2016 [facility] (06784) Comment: Order Comment: [place]: M Performed By: #### L500.0140 0, L500.07532, L500.22658, L500.01186, L550.48172 ####[facility] OBANSEMRCT3712 [place], [place] [address]Yq# [phone] Creatinine 0.867 0.670-1.170 MG/DL Normal 12-15-2016 [facility] (79391) Comment: Order Comment: [place]: M Result Comment: Patients rec eiving either N-Acetylcysteine (NAC) orMetamizole prior to venipu ncture, may have falsely depressedresults. Performed By: #### L500.0140 0, L500.98516, L500.78143, L500.35088, L550.64975 ####[facility] QHGCDATJUW3548 [place], [place] [address]Uf# [phone] Globulin 3.6 2.2-4.2 GM/DL Normal 12-15-2016 [facility] (82722) Comment: Order Comment: [place]: M Performed By: #### L500.0140 0, L500.11093, L500.07256, L500.10539, L550.90241 ####[facility] IOCVVUKOEJ3205 [place], [place] [address]Nl# [phone] Glucose mass conc 98 70-100 MG/DL Normal 12-15-2016 [facility] (13682) Comment: Order Comment: [place]: M Result Comment: 84-957-Euimv l Fasting; 761-918-Jmfvsibf Fasting; greaterthan 126 on more than one result- Diabetes. ADA guidelines Performed By: #### L500.0140 0, L500.44669, L500.71502, L500.68666, L550.28806 ####[facility] GWXWCPQNXV5865 [place], [place] [address]Lw# [phone] Potassium molar conc 4.3 3.5-5.1 MMOL/L Normal 7 [facility] (11327) Comment: Order Comment: [place]: M Performed By: #### L500.0140 0, L500.97055, L500.74687, L500.08693, L550.80258 ####[facility] OAHJVGXIDZ4030 [place], [place] [address]Hu# [phone] Protein 7.0 6.0-8.5 GM/DL Normal 12-15-2016 [facility] (09495) Comment: Order Comment: [place]: M Performed By: #### L500.0140 0, L500.14494, L500.46073, L500.77145, L550.86942 ####[facility] IUJQHBKEFS1549 [place], [place] [address]So# [phone] SGOT (AST) 30 8-34 U/L Normal 12-15-2016 [facility] (60888) Comment: Order Comment: [place]: M Performed By: #### L500.0140 0, L500.03163, L500.42302, L500.01963, L550.45430 ####[facility] [place] [address]Ku# [phone] Sodium 139 136-145 MMOL/L Normal 12-15-2016 [facility] (03853) Comment: Order Comment: [place]: M Performed By: #### L500.0140 0, L500.68993, L500.08172, L500.17339, L550.71210 ####[address] [address]Tx# [phone] Urea nitrogen 16 7-26 MG/DL Normal 12-15-2016 [facility] (86788) Comment: Order Comment: [place]: M Performed By: #### L500.0140 0, L500.61252, L500.90241, L500.64434, L550.36104 ####[facility] [place] [address]By# [phone] cbc w/diff on 12-15 BASO ABS 0.10 0-0.2 K/CU MM Normal 12-15-2016 [facility] (56655) Comment: Order Comment: [place]: M Performed By: #### L500.0140 0, L500.23494, L500.75670, L500.50805, L550.28099 ####[address] [place], [place] [address]Mm# [phone] Basophils/100 WBC Auto (Bld) 1.4 0-2 % Normal 0 12-15-2016 [facility] (81465) Comment: Order Comment: [place]: M Performed By: #### L500.0140 0, L500.73056, L500.36658, L500.70020, L550.56218 ####[facility] VYTEKUVWQL2170 [place], [place] [address]Rk# [phone] EOS ABS 0.40 0-0.5 K/CU MM Normal 12-15-2016 [facility] [place] (40310) Comment: Order Comment: [place]: M Performed By: #### L500.0140 0, L500.98181, L500.04651, L500.22865, L550.95838 ####[facility] VRJVBQASZP5859 [place], [place] [address]Bi# [phone] Eosinophils/100 leukocytes 6.1 0-5 % High [facility] (94892) Comment: Order Comment: [place]: M Performed By: #### L500.0140 0, L500.81181, L500.22476, L500.07148, L550.07402 ####[facility] DLCWGNKTZO9283 [place], [place] [address]Ks# [phone] Erythrocyte distribution 13.1 11-14.5 % Normal 12-15 [facility] width Auto Ratio (RBC) [place] (54160) Comment: Order Comment: [place]: M Performed By: #### L500.0140 0, L500.72206, L500.31538, L500.98938, L550.14836 ####[facility] SPUDBJEXKY7198 [place], [place] [address]Ri# [phone] Erythrocytes (RBC) 4.41 4.50-6.00 M/CU MM Low 12-15-2016 [facility] (26295) Comment: Order Comment: [place]: M Performed By: #### L500.0140 0, L500.32057, L500.52188, L500.35426, L550.09447 ####[facility] VNCKRFHLAN4744 [place], [place] [address]Vd# [phone] Erythrocytes (RBC) 0.0 Less than 1 % Normal [address] [place] [address] (01492) Comment: Order Comment: [place]: M Performed By: #### L500.0140 0, L500.60457, L500.05638, L500.38158, L550.56454 ####[facility] WABZJASFYI4961 [place], [place] [address]Rw# [phone] Hematocrit (HCT) 37.4 41.0-53.0 % Low 12-15-2016 [facility] (78778) Comment: Order Comment: [place]: M Performed By: #### L500.0140 0, L500.45950, L500.20589, L500.56892, L550.98991 ####[address] [address]Yv# [phone] Hemoglobin mass conc (Bld) 12.4 13.5-17.5 G/DL Low [facility] (00 000) Comment: Order Comment: [place]: M Performed By: #### L500.0140 0, L500.77809, L500.32955, L500.55901, L550.36023 ####[facility] DHFFFLNTBS7503 [place], [place] [address]Ev# [phone] IMMATR GRAN ABS 0.10 Less than 2 K/CU MM Normal 12-15-2016 [facility] (00 000) Comment: Order Comment: [place]: M Performed By: #### L500.0140 0, L500.76259, L500.42862, L500.70083, L550.27390 ####[facility] VARFACCGUB4924 [place], [place] [address]Ic# [phone] IMMATURE GRAN % 0.8 Less than 2 % Normal 12-15-2016 [facility] (25141) Comment: Order Comment: [place]: M Performed By: #### L500.0140 0, L500.97417, L500.00185, L500.52179, L550.10323 ####[facility] FCYQKFTFXF6015 [place], [place] [address]Ky# [phone] Lymphocytes 3.60 0.9-4.4 K/CU MM Normal 12-15-2016 [facility] (36870) Comment: Order Comment: [place]: M Performed By: #### L500.0140 0, L500.67218, L500.40664, L500.94766, L550.82290 ####[facility] [place], [place] [address]Cw# [phone] Lymphocytes/100 leukocytes 56.6 20-40 % High [facility] (36305) Comment: Order Comment: [place]: M Performed By: #### L500.0140 0, L500.27527, L500.86246, L500.39201, L550.54184 ####[address] [place], [place] [address]Ir# [phone] MCHC mass conc (RBC) 33.2 32.0-36.0 GM/DL Normal 7 [facility] (00 000) Comment: Order Comment: [place]: M Performed By: #### L500.0140 0, L500.13014, L500.66630, L500.81041, L550.18238 ####[facility] ZQCMWJSOZL0258 [place], [place] [address]Dw# [phone] MCV 84.8 80.0-99.0 fl Normal 12-15-2016 [facility] (17440) Comment: Order Comment: [place]: M Performed By: #### L500.0140 0, L500.16109, L500.07340, L500.98076, L550.69935 ####[facility] KXXJTNKDSW2987 [place], [place] [address]Jb# [phone] MONO ABS 0.50 0.1-1.1 K/CU MM Normal 12-15-2016 [facility] (70697) Comment: Order Comment: [place]: M Performed By: #### L500.0140 0, L500.51481, L500.67571, L500.80597, L550.94095 ####[facility] DDRKHNXXKJ5051 [place], [place] [address]Cw# [phone] Monocytes/100 leukocytes 8.5 2-10 % Normal 12-15 [facility] (56446) Comment: Order Comment: [place]: M Performed By: #### L500.0140 0, L500.21242, L500.78567, L500.47636, L550.69530 ####[facility] GBSFXXBAAR6201 [place], [place] [address]Vv# [phone] Neutrophils 1.70 2.0-8.3 K/CU MM Low 12-15-2016 [facility] (74999) Comment: Order Comment: [place]: M Performed By: #### L500.0140 0, L500.23743, L500.64680, L500.79987, L550.45199 ####[facility] [address]GOGC[address] [place] [address]Gp# [phone] Neutrophils/100 WBC Auto (Bld) 26.6 45-75 % Low 12-15-2016 [facility] (00 000) Comment: Order Comment: [place]: M Performed By: #### L500.0140 0, L500.63908, L500.13509, L500.60993, L550.15563 ####[facility] IJUTEJLLEC9205 [place], [place] [address]Lp# [phone] Platelet mean volume (PMV) 8.8 9.4-12.4 fL Low [facility] (65516) Comment: Order Comment: [place]: M Performed By: #### L500.0140 0, L500.40671, L500.61333, L500.02270, L550.42090 ####[facility] VZCPEMWOIA4516 [place], [place] [address]Sx# [phone] Platelets 242 150-450 K/CU MM Normal 12-15-2016 [facility] ([id number]) Comment: Order Comment: [place]: M Performed By: #### L500.0140 0, L500.92283, L500.16863, L500.73554, L550.55099 ####[facility] [id number] [place], [place] [address]Lv# [phone] WBC (Leukocytes) 6.4 4.5-11.0 K/CU MM Normal 12-15-2016 [facility] ([id number]) Comment: Order Comment: [place]: M Performed By: #### L500.0140 0, L500.84987, L500.21091, L500.46628, L550.16778 ####[facility] [id number] [place], [place] [address]Pz# [phone] gfr est on IF AMER Greater than 60 Normal 12-14-[address] [place] [address] ([id number]) Comment: Order Comment: [place]: M Performed By: #### L500.0140 0, L500.61557, L500.25284, L500.60148, L550.37001 ####ST. [facility] ISKIYNEQCA4457 [place], [place] [address]Ns# [phone] IF non-AFR AMER Greater than 60 Normal 12-14-[address] [place] [address] ([address]) Comment: Order Comment: [place]: M Performed By: #### L500.0140 0, L500.86225, L500.51830, L500.56896, L550.58370 ####[facility] PCQJIGPEPN[address] [place] [address]Pa# [phone] cmp on 2016-12-13 Alanine aminotransferase (ALT) 46 13-61 IU/L Normal 12-13-2016 [facility] (00 000) Comment: Order Comment: [place]: M Performed By: #### L500.0140 0, L500.41336, L500.05262, L500.00769, L550.34965 ####[facility] QAPQTGLRRR5548 [place], [place] [address]Gk# [phone] Albumin 3.4 3.2-5.0 GM/DL Normal 12-13-2016 [facility] (12209) Comment: Order Comment: [place]: M Performed By: #### L500.0140 0, L500.45205, L500.17111, L500.63323, L550.09194 ####[facility] RCGDKGNGAX4508 [place], [place] [address]Nd# [phone] Albumin/Globulin Ratio 1.0 0.8-2.0 {ratio} Normal 017 [facility] (00 000) Comment: Order Comment: [place]: M Performed By: #### L500.0140 0, L500.71239, L500.38019, L500.76660, L550.65487 ####[facility] ZVNFFBDAHI6134 [place], [place] [address]Kj# [phone] ALK PHOS 114 45-117 U/L Normal 12-13-2016 [facility] (03499) Comment: Order Comment: [place]: M Performed By: #### L500.0140 0, L500.99471, L500.23751, L500.73713, L550.13711 ####[facility] LGPAGOYJXA7874 [place], [place] [address]Zk# [phone] Anion gap 9 5-16 MMOL/L Normal 12-13-2016 [facility] (89367) Comment: Order Comment: [place]: M Performed By: #### L500.0140 0, L500.68637, L500.71270, L500.92008, L550.97150 ####[facility] NDCIYYKVRF5060 [place], [place] [address]Rr# [phone] BILI TOTAL 0.3 0.2-1.0 MG/DL Normal 12-13-2016 [facility] (73392) Comment: Order Comment: [place]: M Performed By: #### L500.0140 0, L500.12270, L500.15640, L500.25766, L550.11612 ####[facility] ZXILJZCKME8450 [place], [place] [address]Wt# [phone] BUN/Creatinine Ratio 19 15-24 mg/mg Normal 7 [facility] (93334) Comment: Order Comment: [place]: M Performed By: #### L500.0140 0, L500.76127, L500.11407, L500.92194, L550.42331 ####[facility] JGGAUFEWSN2654 [place], [place] [address]De# [phone] Calcium 9.2 8.5-10.1 MG/DL Normal 12-13-2016 [facility] (48843) Comment: Order Comment: [place]: M Performed By: #### L500.0140 0, L500.76493, L500.72708, L500.98863, L550.37395 ####[facility] IOBGIOZCQS1143 [place], [place] [address]Rt# [phone] Chloride 102 98-107 MMOL/L Normal 12-13-2016 [facility] (79939) Comment: Order Comment: [place]: M Performed By: #### L500.0140 0, L500.24014, L500.57220, L500.12359, L550.50004 ####[facility] VYGBTVCKSE0172 [place], [place] [address]Pi# [phone] CO2 27 21-32 MMOL/L Normal 12-13-2016 [facility] (68181) Comment: Order Comment: [place]: M Performed By: #### L500.0140 0, L500.23884, L500.06297, L500.64146, L550.50458 ####[facility] VHKKUJXXNS6676 [place], [place] [address]Lc# [phone] Creatinine 0.774 0.670-1.170 MG/DL Normal 12-13-2016 [facility] (23140) Comment: Order Comment: [place]: M Result Comment: Patients rec eiving either N-Acetylcysteine (NAC) orMetamizole prior to venipu ncture, may have falsely depressedresults. Performed By: #### L500.0140 0, L500.87680, L500.71129, L500.05166, L550.05657 ####[facility] ZOWCTWKOAH8774 [place], [place] [address]Pl# [phone] Globulin 3.3 2.2-4.2 GM/DL Normal 12-13-2016 [facility] (43002) Comment: Order Comment: [place]: M Performed By: #### L500.0140 0, L500.29245, L500.93815, L500.05591, L550.98318 ####[facility] RILVSJOGZC6471 [place], [place] [address]Ep# [phone] Glucose mass conc 83 70-100 MG/DL Normal 12-13-2016 [facility] (95430) Comment: Order Comment: [place]: M Result Comment: 81-416-Edbjv l Fasting; 294-748-Ymtbpbeg Fasting; greaterthan 126 on more than one result- Diabetes. ADA guidelines Performed By: #### L500.0140 0, L500.38737, L500.42582, L500.72606, L550.32923 ####[facility] POXSXUOMGI9491 [place], [place] [address]Vt# [phone] Potassium molar conc 4.5 3.5-5.1 MMOL/L Normal 7 [facility] (90477) Comment: Order Comment: [place]: M Performed By: #### L500.0140 0, L500.61364, L500.07558, L500.66132, L550.72386 ####[facility] OJQERDLFJH8885 [place], [place] [address]Gn# [phone] Protein 6.7 6.0-8.5 GM/DL Normal 12-13-2016 [facility] (86868) Comment: Order Comment: [place]: M Performed By: #### L500.0140 0, L500.52473, L500.86666, L500.47723, L550.26790 ####[facility] SCFCKSIKXQ0212 [place], [place] [address]Qc# [phone] SGOT (AST) 30 8-34 U/L Normal 12-13-2016 [facility] (92864) Comment: Order Comment: [place]: M Performed By: #### L500.0140 0, L500.70853, L500.20991, L500.96775, L550.31342 ####[facility] YBNDKUURVM9820 [place], [place] [address]Iv# [phone] Sodium 137 136-145 MMOL/L Normal 12-13-2016 [facility] (83138) Comment: Order Comment: [place]: M Performed By: #### L500.0140 0, L500.25328, L500.77287, L500.76801, L550.94692 ####[facility] CEIHRTQHHH0179 [place], [place] [address]Fa# [phone] Urea nitrogen 15 7-26 MG/DL Normal 12-13-2016 [facility] (58126) Comment: Order Comment: [place]: M Performed By: #### L500.0140 0, L500.67498, L500.67478, L500.79683, L550.83840 ####[facility] XZIENCGNRG3898 [place], [place] [address]Op# [phone] cbc w/diff on 12-13 BASO ABS 0.10 0-0.2 K/CU MM Normal 12-13-2016 [facility] (74891) Comment: Order Comment: [place]: M Performed By: #### L500.0140 0, L500.94582, L500.65202, L500.43280, L550.97420 ####[facility] OEYSQPPOHC5924 [place], [place] [address]Av# [phone] Basophils/100 WBC Auto (Bld) 1.2 0-2 % Normal 0 12-13-2016 [facility] (76815) Comment: Order Comment: [place]: M Performed By: #### L500.0140 0, L500.27529, L500.75325, L500.82363, L550.40267 ####[facility] XYYKLQEMDN9918 [place], [place] [address]Ma# [phone] EOS ABS 0.30 0-0.5 K/CU MM Normal 12-13-2016 [facility] [place] (95644) Comment: Order Comment: [place]: M Performed By: #### L500.0140 0, L500.98539, L500.41366, L500.53308, L550.80706 ####[address] [address]Lg# [phone] Eosinophils/100 leukocytes 4.5 0-5 % Normal [facility] (61855) Comment: Order Comment: [place]: M Performed By: #### L500.0140 0, L500.95169, L500.88751, L500.43227, L550.10749 ####[facility] HTZDQNKNPD0030 [place], [place] [address]Eh# [phone] Erythrocyte distribution 13.3 11-14.5 % Normal 12-13 [facility] width Auto Ratio (RBC) [place] (96042) Comment: Order Comment: [place]: M Performed By: #### L500.0140 0, L500.28997, L500.70689, L500.00391, L550.81513 ####[facility] EOLKZDIEGJ[address] [place] [address]Hv# [phone] Erythrocytes (RBC) 0.0 Less than 1 % Normal 7 [facility] (68016) Comment: Order Comment: [place]: M Performed By: #### L500.0140 0, L500.05429, L500.25338, L500.08039, L550.86477 ####[facility] ZBKHIEHLHX4925 [place], [place] [address]Mb# [phone] Erythrocytes (RBC) 4.24 4.50-6.00 M/CU MM Low 12-13-2016 [facility] (10941) Comment: Order Comment: [place]: M Performed By: #### L500.0140 0, L500.31826, L500.31475, L500.80239, L550.62527 ####[facility] PJUMZTNUTQ3282 [place], [place] [address]Xc# [phone] Hematocrit (HCT) 36.8 41.0-53.0 % Low 12-13-2016 [facility] (44993) Comment: Order Comment: [place]: M Performed By: #### L500.0140 0, L500.76046, L500.99277, L500.42586, L550.08124 ####[facility] UUJSHRGQFM1108 [place], [place] [address]Tg# [phone] Hemoglobin mass conc (Bld) 12.0 13.5-17.5 G/DL Low [facility] (00 000) Comment: Order Comment: [place]: M Performed By: #### L500.0140 0, L500.90848, L500.55404, L500.68792, L550.62449 ####[facility] ZLZPTMZJPG9485 [place], [place] [address]Ux# [phone] IMMATR GRAN ABS 0.00 Less than 2 K/CU MM Normal 12-13-2016 [facility] (00 000) Comment: Order Comment: [place]: M Performed By: #### L500.0140 0, L500.69657, L500.18062, L500.46200, L550.71315 ####[facility] QPFTLMTFVW9246 [place], [place] [address]Pi# [phone] IMMATURE GRAN % 0.5 Less than 2 % Normal 12-13-2016 [facility] (87086) Comment: Order Comment: [place]: M Performed By: #### L500.0140 0, L500.65438, L500.25497, L500.60373, L550.90240 ####[facility] VOCVJOEMIJ9031 [place], [place] [address]Ga# [phone] Lymphocytes 4.10 0.9-4.4 K/CU MM Normal 12-13-2016 [facility] (16486) Comment: Order Comment: [place]: M Performed By: #### L500.0140 0, L500.85426, L500.22439, L500.65292, L550.77852 ####[facility] [place], [place] [address]Jx# [phone] Lymphocytes/100 leukocytes 63.2 20-40 % High [facility] (46887) Comment: Order Comment: [place]: M Performed By: #### L500.0140 0, L500.01461, L500.92438, L500.41047, L550.12662 ####[facility] WBEJOZTVRS3545 [place], [place] [address]Gk# [phone] MCHC mass conc (RBC) 32.6 32.0-36.0 GM/DL Normal 7 [facility] (00 000) Comment: Order Comment: [place]: M Performed By: #### L500.0140 0, L500.22215, L500.60545, L500.20449, L550.14437 ####[facility] DTOVBKJNKR1255 [place], [place] [address]Ic# [phone] MCV 86.8 80.0-99.0 fl Normal 12-13-2016 [facility] (70018) Comment: Order Comment: [place]: M Performed By: #### L500.0140 0, L500.48613, L500.25661, L500.77360, L550.25179 ####[facility] SXBXKEIOIT6271 [place], [place] [address]Ho# [phone] MONO ABS 0.50 0.1-1.1 K/CU MM Normal 12-13-2016 [facility] (40275) Comment: Order Comment: [place]: M Performed By: #### L500.0140 0, L500.32796, L500.45968, L500.09159, L550.44520 ####[facility] DVZZGFBXKR9207 [place], [place] [address]Kr# [phone] Monocytes/100 leukocytes 7.6 2-10 % Normal 12-13 [facility] (85106) Comment: Order Comment: [place]: M Performed By: #### L500.0140 0, L500.38322, L500.75467, L500.28608, L550.45399 ####[address] [address]Uc# [phone] Neutrophils 1.50 2.0-8.3 K/CU MM Low 12-13-2016 [facility] (42356) Comment: Order Comment: [place]: M Performed By: #### L500.0140 0, L500.79474, L500.92091, L500.53651, L550.36530 ####[address] [address]Wh# [phone] Neutrophils/100 WBC Auto (Bld) 23.0 45-75 % Low 12-13-2016 [facility] (00 000) Comment: Order Comment: [place]: M Performed By: #### L500.0140 0, L500.09733, L500.39856, L500.28360, L550.06300 ####[address] [address]Ak# [phone] Platelet mean volume (PMV) 9.1 9.4-12.4 fL Low [facility] (41910) Comment: Order Comment: [place]: M Performed By: #### L500.0140 0, L500.14501, L500.37532, L500.63019, L550.20330 ####[facility] OZMXOXKBYN7067 [place], [place] [address]Hn# [phone] Platelets 233 150-450 K/CU MM Normal 12-13-2016 [facility] (88701) Comment: Order Comment: [place]: M Performed By: #### L500.0140 0, L500.21403, L500.10230, L500.53347, L550.23458 ####[facility] ZOEPSKRRIR6165 [place], [place] [address]Dp# [phone] WBC (Leukocytes) 6.5 4.5-11.0 K/CU MM Normal 12-13-2016 [facility] (12830) Comment: Order Comment: [place]: M Performed By: #### L500.0140 0, L500.61198, L500.16068, L500.51108, L550.76572 ####[address] [address]Qz# [phone] mrsa pcr on 2016-11 MRSA PCR NEGATIVE NEGATIVE Normal 12-08-2016 [facility] (77530) Comment: Order Comment: [place]: M Result Comment: PLEASE NOTE: TESTING DONE BY PCR TECHNOLOGY. Performed By: #### L500.0140 0, L500.09509, L500.87240, L500.04196, L550.22612 ####[facility] NPLADWHACE1841 [place], [place] [address]Gs# [phone] SA PCR NEGATIVE NEGATIVE Normal 12-08-2016 [facility] (37432) Comment: Order Comment: [place]: M Result Comment: PLEASE NOTE: TESTING DONE BY PCR TECHNOLOGY. Performed By: #### L500.0140 0, L500.58759, L500.13203, L500.34470, L550.34889 ####[facility] UWIOHUUSIH9[address] [place] [address]Sc# [phone] gfr est on IF AMER Greater than 60 Normal 12-09-[address] [place] [address] (75340) Comment: Order Comment: [place]: M Performed By: #### L500.0140 0, L500.02405, L500.56637, L500.30124, L550.75710 ####[facility] CZLEXEFBAL1764 [place], [place] [address]Us# [phone] IF non-AFR AMER Greater than 60 Normal 12-09-[address] [place] [address] (32207) Comment: Order Comment: [place]: M Performed By: #### L500.0140 0, L500.53702, L500.39982, L500.99105, L550.06499 ####[facility] LEOAPCHWZU0699 [place], [place] [address]Wo# [phone] cmp on 2016-12-08 Alanine aminotransferase (ALT) 61 13-61 IU/L Normal 12-08-2016 [facility] (00 000) Comment: Order Comment: [place]: M Performed By: #### L500.0140 0, L500.86228, L500.05039, L500.01641, L550.73654 ####[facility] IBPTHKVUSP7872 [place], [place] [address]Dy# [phone] Albumin 4.0 3.2-5.0 GM/DL Normal 12-08-2016 [facility] (20743) Comment: Order Comment: [place]: M Performed By: #### L500.0140 0, L500.29884, L500.01429, L500.68303, L550.06005 ####[facility] IYCUAZFCPJ7827 [place], [place] [address]Yt# [phone] Albumin/Globulin Ratio 1.0 0.8-2.0 {ratio} Normal [address] [place] [address] (00 000) Comment: Order Comment: [place]: M Performed By: #### L500.0140 0, L500.17116, L500.41570, L500.30211, L550.17680 ####[facility] DBMZWUCJCM5767 [place], [place] [address]Qb# [phone] ALK PHOS 139 45-117 U/L High 12-08-2016 [facility] (41760) Comment: Order Comment: [place]: M Performed By: #### L500.0140 0, L500.59020, L500.25876, L500.19169, L550.81831 ####[facility] GWCYRKDUUT3783 [place], [place] [address]Ep# [phone] Anion gap 5 5-16 MMOL/L Normal 12-08-2016 [facility] (22750) Comment: Order Comment: [place]: M Performed By: #### L500.0140 0, L500.46852, L500.21738, L500.93407, L550.71560 ####[facility] FMDPRQHRTN85[address] [place] [address]Ry# [phone] BILI TOTAL 0.4 0.2-1.0 MG/DL Normal 12-08-2016 [facility] (64865) Comment: Order Comment: [place]: M Performed By: #### L500.0140 0, L500.37910, L500.95635, L500.90028, L550.87314 ####[facility] DEGSNCXYRJ3696 [place], [place] [address]Dn# [phone] BUN/Creatinine Ratio 17 15-24 mg/mg Normal 7 [facility] (69550) Comment: Order Comment: [place]: M Performed By: #### L500.0140 0, L500.91710, L500.27439, L500.23969, L550.86266 ####[facility] KJHJRNHDNO0134 [place], [place] [address]Op# [phone] Calcium 9.4 8.5-10.1 MG/DL Normal 12-08-2016 [facility] (93572) Comment: Order Comment: [place]: M Performed By: #### L500.0140 0, L500.15970, L500.66171, L500.79269, L550.22004 ####[facility] OSXZRSSITP4577 [place], [place] [address]Nn# [phone] Chloride 99 98-107 MMOL/L Normal 12-08-2016 [facility] (62881) Comment: Order Comment: [place]: M Performed By: #### L500.0140 0, L500.74229, L500.28259, L500.23629, L550.59731 ####[facility] NHRLZYPQAV5055 [place], [place] [address]Ez# [phone] CO2 32 21-32 MMOL/L Normal 12-08-2016 [facility] (88815) Comment: Order Comment: [place]: M Performed By: #### L500.0140 0, L500.54413, L500.32354, L500.45389, L550.09638 ####[facility] LJRGQTEOAO9526 [place], [place] [address]Ee# [phone] Creatinine 0.784 0.670-1.170 MG/DL Normal 12-08-2016 [facility] (56999) Comment: Order Comment: [place]: M Result Comment: Patients rec eiving either N-Acetylcysteine (NAC) orMetamizole prior to venipu ncture, may have falsely depressedresults. Performed By: #### L500.0140 0, L500.45611, L500.90185, L500.87800, L550.95761 ####[facility] BMOYUKDWDF4624 [place], [place] [address]Fn# [phone] Globulin 4.1 2.2-4.2 GM/DL Normal 12-08-2016 [facility] (16826) Comment: Order Comment: [place]: M Performed By: #### L500.0140 0, L500.44204, L500.54053, L500.63782, L550.20055 ####[facility] LKTEHRSSKT9474 [place], [place] [address]Hw# [phone] Glucose mass conc 89 70-100 MG/DL Normal 12-08-2016 [facility] (19614) Comment: Order Comment: [place]: M Result Comment: 89-611-Ciuci l Fasting; 967-240-Pyehjqbq Fasting; greaterthan 126 on more than one result- Diabetes. ADA guidelines Performed By: #### L500.0140 0, L500.05186, L500.85917, L500.14799, L550.51458 ####[facility] TBQBVJXXDJ9352 [place], [place] [address]Lh# [phone] Potassium molar conc 4.5 3.5-5.1 MMOL/L Normal 7 [facility] (84340) Comment: Order Comment: [place]: M Performed By: #### L500.0140 0, L500.83405, L500.18600, L500.09630, L550.19224 ####[facility] GDPWRQIOQR9924 [place], [place] [address]Zb# [phone] Protein 8.1 6.0-8.5 GM/DL Normal 12-08-2016 [facility] (55962) Comment: Order Comment: [place]: M Performed By: #### L500.0140 0, L500.36421, L500.64802, L500.49193, L550.00916 ####[facility] HSKCJSJQZM3389 [place], [place] [address]Jy# [phone] SGOT (AST) 42 8-34 U/L High 12-08-2016 [facility] (50370) Comment: Order Comment: [place]: M Performed By: #### L500.0140 0, L500.61286, L500.90795, L500.99484, L550.38355 ####[facility] JFLUIRPIBV3957 [place], [place] [address]Md# [phone] Sodium 136 136-145 MMOL/L Normal 12-08-2016 [facility] (47072) Comment: Order Comment: [place]: M Performed By: #### L500.0140 0, L500.99799, L500.68408, L500.36796, L550.60220 ####[facility] YXSBUTPQTX2261 [place], [place] [address]Yq# [phone] Urea nitrogen 13 7-26 MG/DL Normal 12-08-2016 [facility] (66199) Comment: Order Comment: [place]: M Performed By: #### L500.0140 0, L500.89626, L500.22113, L500.43022, L550.24701 ####[facility] LSRGOFYHDJ6158 [place], [place] [address]Bs# [phone] cbc w/diff on 12-08 BASO ABS 0.10 0-0.2 K/CU MM Normal 12-08-2016 [facility] (93466) Comment: Order Comment: [place]: M Performed By: #### L500.0140 0, L500.00947, L500.92222, L500.11354, L550.13492 ####[facility] INENOCOOZW7633 [place], [place] [address]El# [phone] Basophils/100 WBC Auto (Bld) 1.1 0-2 % Normal 0 12-08-2016 [facility] (52652) Comment: Order Comment: [place]: M Performed By: #### L500.0140 0, L500.57218, L500.60560, L500.34378, L550.08104 ####[facility] QFQPYELMIR0086 [place], [place] [address]Uj# [phone] EOS ABS 0.30 0-0.5 K/CU MM Normal 12-08-2016 [facility] (48102) Comment: Order Comment: [place]: M Performed By: #### L500.0140 0, L500.03479, L500.74076, L500.39422, L550.05951 ####[facility] ZKZTLMXTWH2728 [place], [place] [address]Pg# [phone] Eosinophils/100 leukocytes 3.3 0-5 % Normal [facility] (94734) Comment: Order Comment: [place]: M Performed By: #### L500.0140 0, L500.60337, L500.80853, L500.94581, L550.57816 ####[facility] QJFZEFNQFV9535 [place], [place] [address]Qh# [phone] Erythrocyte distribution 13.3 11-14.5 % Normal 12-08 [facility] width Auto Ratio (RBC) [place] ([address]231) Comment: Order Comment: [place]: M Performed By: #### L500.0140 0, L500.86698, L500.83117, L500.41680, L550.66359 ####[facility] [id number] [place], [place] [address]Zg# [phone] Erythrocytes (RBC) 4.66 4.50-6.00 M/CU MM Normal 12-08-2016 [facility] (00 000) Comment: Order Comment: [place]: M Performed By: #### L500.0140 0, L500.48893, L500.18892, L500.69378, L550.13935 ####[facility] [id number] [place], [place] [address]Js# [phone] Erythrocytes (RBC) 0.0 Less than 1 % Normal [address] [place] [address] ([address]) Comment: Order Comment: [place]: M Performed By: #### L500.0140 0, L500.32010, L500.90576, L500.98381, L550.47815 ####[facility] [id number] [place], [place] [address]Yc# [phone] Hematocrit (HCT) 39.8 41.0-53.0 % Low 12-08-2016 [facility] ([address]) Comment: Order Comment: [place]: M Performed By: #### L500.0140 0, L500.78679, L500.12679, L500.40207, L550.33623 ####[facility] [id number] [place], [place] [address]Cl# [phone] Hemoglobin mass conc (Bld) 13.1 13.5-17.5 G/DL Low [facility] (00 000) Comment: Order Comment: [place]: M Performed By: #### L500.0140 0, L500.14742, L500.11058, L500.57563, L550.52851 ####[facility] [id number] [place], [place] [address]Jb# [phone] IMMATR GRAN ABS 0.00 Less than 2 K/CU MM Normal 12-08-2016 [facility] (00 000) Comment: Order Comment: [place]: M Performed By: #### L500.0140 0, L500.05984, L500.98301, L500.99679, L550.94558 ####[place] [address] [place], [place] [address]Vz# [phone] IMMATURE GRAN % 0.5 Less than 2 % Normal 12-08-2016 [facility] ([address]) Comment: Order Comment: [place]: M Performed By: #### L500.0140 0, L500.73065, L500.49511, L500.18659, L550.20855 ####[facility] [id number] [place], [place] [address]Nv# [phone] Lymphocytes 3.90 0.9-4.4 K/CU MM Normal 12-08-2016 [facility] ([address]) Comment: Order Comment: [place]: M Performed By: #### L500.0140 0, L500.60806, L500.24076, L500.28524, L550.72889 ####[facility] [id number] [place] [address]Ws# [phone] Lymphocytes/100 leukocytes 52.3 20-40 % High [facility] ([address]) Comment: Order Comment: [place]: M Performed By: #### L500.0140 0, L500.92285, L500.56766, L500.72167, L550.99694 ####[facility] [id number] [place], [place] [address]Az# [phone] MCHC mass conc (RBC) 32.9 32.0-36.0 GM/DL Normal 7 [facility] (00 000) Comment: Order Comment: [place]: M Performed By: #### L500.0140 0, L500.14633, L500.12766, L500.80533, L550.53983 ####[facility] [id number] [place], [place] [address]Cb# [phone] MCV 85.4 80.0-99.0 fl Normal 12-08-2016 [facility] and [facility] ([address]013[facility] Comment: Order Comment: [place]: M Performed By: #### L500.0140 0, L500.22067, L500.26024, L500.75783, L550.15775 ####[facility] ZJTYKJOSGH5702 [place], [place] [address]Yy# [phone] MONO ABS 0.70 0.1-1.1 K/CU MM Normal 12-08-2016 [facility] (50818) Comment: Order Comment: [place]: M Performed By: #### L500.0140 0, L500.07309, L500.11942, L500.34668, L550.94550 ####[facility] HFRSVSHUGM8415 [place], [place] [address]Ly# [phone] Monocytes/100 leukocytes 9.6 2-10 % Normal 12-08 [facility] (69600) Comment: Order Comment: [place]: M Performed By: #### L500.0140 0, L500.89956, L500.50593, L500.19156, L550.66924 ####[facility] QFFDEMJCYA6676 [place], [place] [address]Xo# [phone] Neutrophils 2.50 2.0-8.3 K/CU MM Normal 12-08-2016 [facility] (16762) Comment: Order Comment: [place]: M Performed By: #### L500.0140 0, L500.33942, L500.86485, L500.56631, L550.15348 ####[facility] LWESLCXYBM1979 [place], [place] [address]Gi# [phone] Neutrophils/100 WBC Auto (Bld) 33.2 45-75 % Low 12-08-2016 [facility] (00 000) Comment: Order Comment: [place]: M Performed By: #### L500.0140 0, L500.04250, L500.61249, L500.37470, L550.64905 ####[facility] SCLECCVDHP8318 [place], [place] [address]Gg# [phone] Platelet mean volume (PMV) 8.4 9.4-12.4 fL Low [facility] (10625) Comment: Order Comment: [place]: M Performed By: #### L500.0140 0, L500.28506, L500.30188, L500.15207, L550.18346 ####[facility] MSZZGOFBSO4533 [place], [place] [address]Ci# [phone] Platelets 309 150-450 K/CU MM Normal 12-08-2016 [facility] [place] (23479) Comment: Order Comment: [place]: M Performed By: #### L500.0140 0, L500.98976, L500.72390, L500.41989, L550.59111 ####[facility] IYSLMKVBAH3784 [place], [place] [address]Py# [phone] WBC (Leukocytes) 7.5 4.5-11.0 K/CU MM Normal 12-08-2016 [facility] [place] (47309) Comment: Order Comment: [place]: M Performed By: #### L500.0140 0, L500.46031, L500.73452, L500.65771, L550.67593 ####[facility] WMYXHMNMSL4093 [place], [place] [address]Nq# [phone] gfr est on IF AMER Greater than 60 Normal 12-07-[address] [place] [address] (16018) Comment: Order Comment: [place]: M Performed By: #### L500.0140 0, L500.17957, L500.10718, L500.47604, L550.66541 ####[facility] PQTPJMEGBS1000 [place], [place] [address]Bs# [phone] IF non-AFR AMER Greater than 60 Normal 12-07-[address] [place] [address] (16958) Comment: Order Comment: [place]: M Performed By: #### L500.0140 0, L500.69062, L500.73110, L500.97738, L550.29683 ####[facility] NPZEZVKAGX7[address] [place] [address]Dd# [phone] cmp on 2016-12-06 Alanine aminotransferase (ALT) 52 13-61 IU/L Normal 12-06-2016 [facility] (00 000) Comment: Order Comment: [place]: M Performed By: #### L500.0140 0, L500.74359, L500.58567, L500.59779, L550.53049 ####[facility] JSEUJYDHYG0351 [place], [place] [address]Ws# [phone] Albumin 3.2 3.2-5.0 GM/DL Normal 12-06-2016 [facility] (77701) Comment: Order Comment: [place]: M Performed By: #### L500.0140 0, L500.08152, L500.99117, L500.31763, L550.68074 ####[facility] ZYVTPAPAAL4313 [place], [place] [address]La# [phone] Albumin/Globulin Ratio 0.9 0.8-2.0 {ratio} Normal [address] [place] [address] (00 000) Comment: Order Comment: [place]: M Performed By: #### L500.0140 0, L500.42824, L500.64811, L500.74973, L550.93606 ####[facility] QWQCNOQVDG8405 [place], [place] [address]Df# [phone] ALK PHOS 127 45-117 U/L High 12-06-2016 [facility] (71259) Comment: Order Comment: [place]: M Performed By: #### L500.0140 0, L500.63771, L500.36883, L500.74296, L550.43343 ####[facility] TDESDGIPTY7283 [place], [place] [address]Sw# [phone] Anion gap 9 5-16 MMOL/L Normal 12-06-2016 [facility] (58278) Comment: Order Comment: [place]: M Performed By: #### L500.0140 0, L500.23256, L500.90009, L500.97203, L550.31075 ####[facility] SONWUMUYQY0593 [place], [place] [address]Sc# [phone] BILI TOTAL 0.4 0.2-1.0 MG/DL Normal 12-06-2016 [facility] (90607) Comment: Order Comment: [place]: M Performed By: #### L500.0140 0, L500.84928, L500.93099, L500.14312, L550.98605 ####[facility] CHUIEXDPNW9052 [place], [place] [address]Kq# [phone] BUN/Creatinine Ratio 23 15-24 mg/mg Normal 7 [facility] (15384) Comment: Order Comment: [place]: M Performed By: #### L500.0140 0, L500.38863, L500.65195, L500.12534, L550.30011 ####[facility] HARZDECYBM4375 [place], [place] [address]Vq# [phone] Calcium 9.2 8.5-10.1 MG/DL Normal 12-06-2016 [facility] (67547) Comment: Order Comment: [place]: M Performed By: #### L500.0140 0, L500.93327, L500.52027, L500.81103, L550.90980 ####[facility] WZETJNTASU0473 [place], [place] [address]Bi# [phone] Chloride 101 98-107 MMOL/L Normal 12-06-2016 [facility] (15171) Comment: Order Comment: [place]: M Performed By: #### L500.0140 0, L500.80443, L500.10165, L500.33781, L550.65027 ####[facility] UTNBAWINHD9277 [place], [place] [address]Nm# [phone] CO2 28 21-32 MMOL/L Normal 12-06-2016 [facility] (36805) Comment: Order Comment: [place]: M Performed By: #### L500.0140 0, L500.61670, L500.92595, L500.63680, L550.62597 ####[facility] MCGSEBBTNU1139 [place], [place] [address]Ei# [phone] Creatinine 0.726 0.670-1.170 MG/DL Normal 12-06-2016 [facility] (51479) Comment: Order Comment: [place]: M Result Comment: Patients rec eiving either N-Acetylcysteine (NAC) orMetamizole prior to venipu ncture, may have falsely depressedresults. Performed By: #### L500.0140 0, L500.78615, L500.82368, L500.62520, L550.35358 ####[facility] AAFIIRHPBY4182 [place], [place] [address]Ib# [phone] Globulin 3.5 2.2-4.2 GM/DL Normal 12-06-2016 [facility] (73700) Comment: Order Comment: [place]: M Performed By: #### L500.0140 0, L500.18807, L500.30036, L500.09673, L550.22249 ####[facility] VGTUIYSNKQ2232 [place], [place] [address]Qm# [phone] Glucose mass conc 85 70-100 MG/DL Normal 12-06-2016 [facility] (23956) Comment: Order Comment: [place]: M Result Comment: 52-264-Ciqga l Fasting; 652-899-Aoavwkfj Fasting; greaterthan 126 on more than one result- Diabetes. ADA guidelines Performed By: #### L500.0140 0, L500.89302, L500.28906, L500.63740, L550.09809 ####[facility] VRMDDVYMMA3991 [place], [place] [address]Py# [phone] Potassium molar conc 4.4 3.5-5.1 MMOL/L Normal 7 [facility] (58872) Comment: Order Comment: [place]: M Performed By: #### L500.0140 0, L500.78057, L500.38150, L500.88812, L550.57752 ####[facility] XBYXFRNCUU3458 [place], [place] [address]Jx# [phone] Protein 6.7 6.0-8.5 GM/DL Normal 12-06-2016 [facility] (23736) Comment: Order Comment: [place]: M Performed By: #### L500.0140 0, L500.57219, L500.66289, L500.94682, L550.72217 ####[facility] UWAQQUVWKD9826 [place], [place] [address]Va# [phone] SGOT (AST) 37 8-34 U/L High 12-06-2016 [facility] (38458) Comment: Order Comment: [place]: M Performed By: #### L500.0140 0, L500.84178, L500.11286, L500.48698, L550.78375 ####[facility] JKBMNVFLLE7100 [place], [place] [address]Ix# [phone] Sodium 138 136-145 MMOL/L Normal 12-06-2016 [facility] (74164) Comment: Order Comment: [place]: M Performed By: #### L500.0140 0, L500.07977, L500.06934, L500.72777, L550.49557 ####[address] [place], [place] [address]Lv# [phone] Urea nitrogen 17 7-26 MG/DL Normal 12-06-2016 [facility] (56819) Comment: Order Comment: [place]: M Performed By: #### L500.0140 0, L500.52991, L500.49369, L500.87980, L550.48325 ####[address] [address]Rh# [phone] cbc w/diff on 12-06 EOS ABS 0.29 0-0.5 K/CU MM Normal 12-06-2016 [facility] (92029) Comment: Order Comment: [place]: M Performed By: #### L500.0140 0, L500.43207, L500.63918, L500.28803, L550.64287 ####[address] [place], [place] [address]Ns# [phone] Eosinophils/100 leukocytes 4.0 0-5 % Normal [facility] (95797) Comment: Order Comment: [place]: M Performed By: #### L500.0140 0, L500.66137, L500.94912, L500.65384, L550.94603 ####[facility] [place], [place] [address]Mi# [phone] Lymphocytes 3.96 0.9-4.4 K/CU MM Normal 12-06-2016 [facility] (84036) Comment: Order Comment: [place]: M Performed By: #### L500.0140 0, L500.83254, L500.73045, L500.89794, L550.38333 ####[address] [address]Iu# [phone] Lymphocytes PRESENT Normal 12-06-2016 [facility] (98208) Comment: Order Comment: [place]: M Performed By: #### L500.0140 0, L500.81261, L500.57379, L500.74333, L550.88051 ####[address] [address]Ex# [phone] Lymphocytes/100 leukocytes 55.0 20-40 % High [facility] (49714) Comment: Order Comment: [place]: M Performed By: #### L500.0140 0, L500.44684, L500.26312, L500.30822, L550.58245 ####[address] [address]Bk# [phone] MONO ABS 0.72 0.1-1.1 K/CU MM Normal 12-06-2016 [facility] (03666) Comment: Order Comment: [place]: M Performed By: #### L500.0140 0, L500.20993, L500.23900, L500.57052, L550.30840 ####[address] [address]Fw# [phone] Monocytes/100 leukocytes 10.0 2-10 % Normal 12-06 [facility] (18030) Comment: Order Comment: [place]: M Performed By: #### L500.0140 0, L500.84835, L500.04121, L500.78504, L550.46501 ####[address] [address]Ec# [phone] Neutrophils 2.23 2.0-8.3 K/CU MM Normal 12-06-2016 [facility] (94170) Comment: Order Comment: [place]: M Performed By: #### L500.0140 0, L500.15725, L500.45585, L500.34949, L550.48548 ####[address] [address]Pz# [phone] Neutrophils/100 WBC Auto (Bld) 31.0 45-75 % Low 12-06-2016 [facility] (00 000) Comment: Order Comment: [place]: M Performed By: #### L500.0140 0, L500.69250, L500.12800, L500.64088, L550.10308 ####[facility] DFUWDKLMEB0566 [place], [place] [address]Gw# [phone] PLT EST ADEQUATE Normal 12-06-2016 [facility] (38278) Comment: Order Comment: [place]: M Performed By: #### L500.0140 0, L500.74203, L500.55237, L500.18692, L550.09627 ####[facility] GDSJLCZLTR4304 [place], [place] [address]Lv# [phone] POLY 1+ Normal 12-06-2016 [facility] (31247) Comment: Order Comment: [place]: M Performed By: #### L500.0140 0, L500.06932, L500.15912, L500.45205, L550.93752 ####[facility] IKGKFTAWXM1507 [place], [place] [address]Ym# [phone] Erythrocyte distribution 13.2 11-14.5 % Normal 12-06 [facility] width Auto Ratio (RBC) [place] (98152) Comment: Order Comment: [place]: M Performed By: #### L500.0140 0, L500.19944, L500.47182, L500.05803, L550.84612 ####[facility] ESRKXJOYVY2942 [place], [place] [address]Vp# [phone] Erythrocytes (RBC) 0.0 Less than 1 % Normal 7 [facility] (58318) Comment: Order Comment: [place]: M Performed By: #### L500.0140 0, L500.91941, L500.73372, L500.28906, L550.39720 ####[facility] MYNTRSITUT8940 [place], [place] [address]Hw# [phone] Erythrocytes (RBC) 4.25 4.50-6.00 M/CU MM Low 12-06-2016 [facility] (93961) Comment: Order Comment: [place]: M Performed By: #### L500.0140 0, L500.43299, L500.77355, L500.06536, L550.35545 ####[facility] HVMRNKYZKD5443 [place], [place] [address]Jd# [phone] Hematocrit (HCT) 36.3 41.0-53.0 % Low 12-06-2016 [facility] (23604) Comment: Order Comment: [place]: M Performed By: #### L500.0140 0, L500.16574, L500.57385, L500.42087, L550.90375 ####[facility] IWTFKAGTUG0815 [place], [place] [address]Zp# [phone] Hemoglobin mass conc (Bld) 12.1 13.5-17.5 G/DL Low [facility] (00 000) Comment: Order Comment: [place]: M Performed By: #### L500.0140 0, L500.29191, L500.12733, L500.83476, L550.84980 ####[facility] JENDZLULGN7759 [place], [place] [address]Pj# [phone] MCHC mass conc (RBC) 33.3 32.0-36.0 GM/DL Normal 7 [facility] (00 000) Comment: Order Comment: [place]: M Performed By: #### L500.0140 0, L500.39748, L500.42786, L500.74375, L550.01272 ####[facility] XZLVRPDKQQ2475 [place], [place] [address]Yv# [phone] MCV 85.4 80.0-99.0 fl Normal 12-06-2016 [facility] (08931) Comment: Order Comment: [place]: M Performed By: #### L500.0140 0, L500.76208, L500.54497, L500.24042, L550.23903 ####[facility] JOBSYHQFEX0994 [place], [place] [address]Hp# [phone] Platelet mean volume (PMV) 9.1 9.4-12.4 fL Low [facility] (14099) Comment: Order Comment: [place]: M Performed By: #### L500.0140 0, L500.11863, L500.23385, L500.44917, L550.33190 ####[facility] NBQWNALFPX6701 [place], [place] [address]Ro# [phone] Platelets 259 150-450 K/CU MM Normal 12-06-2016 [facility] (66759) Comment: Order Comment: [place]: M Performed By: #### L500.0140 0, L500.45363, L500.48745, L500.21863, L550.96738 ####[facility] EGKSVRTETG0517 [place], [place] [address]Gj# [phone] WBC (Leukocytes) 7.2 4.5-11.0 K/CU MM Normal 12-06-2016 [facility] (30459) Comment: Order Comment: [place]: M Performed By: #### L500.0140 0, L500.48786, L500.83121, L500.06480, L550.12620 ####[facility] HGHQFCXUQI0274 [place], [place] [address]Sx# [phone] hcv genotyping on 2 HCV GENOTYPE TNP Normal 11-26-2016 [facility] (24252) Comment: Order Comment: [place]: M Result Comment: Specimen has insufficient hepatitis C virus RNA to obtaingenotyping results. Th is genotyping assay should only beused for known HCV positive patients with H CV RNA levelsabove 1000 IU/mL. Performed By: #### L500.0140 0, L500.03062, L500.69007, L500.43828, L550.44143 ####[facility] HDVDWQHJBR7512 [place], [place] [address]Om# [phone] NOTE HCV GTYPE: TNP Normal 11-26-2016 [facility] (79374) Comment: Order Comment: [place]: M Result Comment: This test wa s developed and its performance characteristicsdetermined by [facility]. It has not been cleared or approvedby the U.S. Food and Drug Admin istration.The FDA has determined that such clearance or approval isnot necessary. This test is used for clinical purposes. Itshould not be re garded as investigational or for research.Performed At: [facility] [address] [id number] Joaquín Dougherty [id number] Performed By: #### L500.0140 0, L500.56734, L500.70422, L500.53265, L550.72755 ####[facility] GDIOJJDRSZ3231 [place], [place] [address]Ju# [phone] gfr est on IF AMER Greater than 60 Normal 11-27-[address] [place] [address] (33754) Comment: Order Comment: [place]: M Performed By: #### L500.0140 0, L500.52287, L500.62258, L500.21296, L550.73666 ####[facility] POKZUUGOKO9234 [place], [place] [address]Qn# [phone] IF non-AFR AMER Greater than 60 Normal 11-27-[address] [place] [address] (62319) Comment: Order Comment: [place]: M Performed By: #### L500.0140 0, L500.47145, L500.38081, L500.22756, L550.38522 ####[facility] UPWIZAZCLZ4236 [place], [place] [address]Xt# [phone] cmp on 2016-11-26 Alanine aminotransferase (ALT) 37 13-61 IU/L Normal 11-26-2016 [facility] (00 000) Comment: Order Comment: [place]: M Performed By: #### L500.0140 0, L500.93069, L500.82023, L500.69221, L550.82661 ####[facility] LUHWKRYEHE4674 [place], [place] [address]Zz# [phone] Albumin 2.9 3.2-5.0 GM/DL Low 11-26-2016 [facility] (92329) Comment: Order Comment: [place]: M Performed By: #### L500.0140 0, L500.26734, L500.38202, L500.46031, L550.80960 ####[facility] EPMWCSCQEC5794 [place], [place] [address]Oo# [phone] Albumin/Globulin Ratio 0.9 0.8-2.0 {ratio} Normal 017 [facility] (00 000) Comment: Order Comment: [place]: M Performed By: #### L500.0140 0, L500.59129, L500.05205, L500.18352, L550.89419 ####[facility] FZHIDMLJXZ9536 [place], [place] [address]Yy# [phone] ALK PHOS 127 45-117 U/L High 11-26-2016 [facility] (26703) Comment: Order Comment: [place]: M Performed By: #### L500.0140 0, L500.43022, L500.45285, L500.19287, L550.91063 ####[facility] BJPISGTQZN1319 [place], [place] [address]Xl# [phone] Anion gap 7 5-16 MMOL/L Normal 11-26-2016 [facility] (51029) Comment: Order Comment: [place]: M Performed By: #### L500.0140 0, L500.39726, L500.98129, L500.50243, L550.60001 ####[facility] BRFOFDRPPS2622 [place], [place] [address]Cw# [phone] BILI TOTAL 0.3 0.2-1.0 MG/DL Normal 11-26-2016 [facility] (12054) Comment: Order Comment: [place]: M Performed By: #### L500.0140 0, L500.02834, L500.51062, L500.01715, L550.35456 ####[facility] EGQTEAHVAR9569 [place], [place] [address]Ga# [phone] BUN/Creatinine Ratio 12 15-24 mg/mg Low 7 [facility] (85272) Comment: Order Comment: [place]: M Performed By: #### L500.0140 0, L500.03184, L500.11345, L500.71966, L550.40813 ####[facility] DQVDRTNMUJ6853 [place], [place] [address]Jm# [phone] Calcium 8.5 8.5-10.1 MG/DL Normal 11-26-2016 [facility] (40428) Comment: Order Comment: [place]: M Performed By: #### L500.0140 0, L500.82229, L500.32021, L500.11704, L550.87577 ####[facility] IDCHIJKZYK4536 [place], [place] [address]Fh# [phone] Chloride 105 98-107 MMOL/L Normal 11-26-2016 [facility] (01477) Comment: Order Comment: [place]: M Performed By: #### L500.0140 0, L500.20526, L500.92918, L500.40358, L550.81239 ####[facility] KHEJLLLRTC6289 [place], [place] [address]Lc# [phone] CO2 28 21-32 MMOL/L Normal 11-26-2016 [facility] (01230) Comment: Order Comment: [place]: M Performed By: #### L500.0140 0, L500.93419, L500.74844, L500.98404, L550.00861 ####[facility] NAQCJTGJGI1625 [place], [place] [address]Mb# [phone] Creatinine 0.646 0.670-1.170 MG/DL Low 11-26-2016 [facility] (03219) Comment: Order Comment: [place]: M Result Comment: Patients rec eiving either N-Acetylcysteine (NAC) orMetamizole prior to venipu ncture, may have falsely depressedresults. Performed By: #### L500.0140 0, L500.30252, L500.82473, L500.17746, L550.37650 ####[facility] GVDXIBZKQS4519 [place], [place] [address]Bq# [phone] Globulin 3.1 2.2-4.2 GM/DL Normal 11-26-2016 [facility] (14468) Comment: Order Comment: [place]: M Performed By: #### L500.0140 0, L500.01480, L500.60371, L500.67620, L550.82348 ####[facility] VKNJVCZHMZ0326 [place], [place] [address]Hw# [phone] Glucose mass conc 91 70-100 MG/DL Normal 11-26-2016 [facility] (94963) Comment: Order Comment: [place]: M Result Comment: 48-814-Ucafm l Fasting; 895-913-Dvyjlnqu Fasting; greaterthan 126 on more than one result- Diabetes. ADA guidelines Performed By: #### L500.0140 0, L500.50682, L500.86942, L500.74913, L550.03169 ####[facility] MOMWNCWVBY0838 [place], [place] [address]Go# [phone] Potassium molar conc 4.0 3.5-5.1 MMOL/L Normal 7 [facility] (26085) Comment: Order Comment: [place]: M Performed By: #### L500.0140 0, L500.93395, L500.89067, L500.62741, L550.04923 ####[facility] HDOYCKAHQX9067 [place], [place] [address]Vd# [phone] Protein 6.0 6.0-8.5 GM/DL Normal 11-26-2016 [facility] (63741) Comment: Order Comment: [place]: M Performed By: #### L500.0140 0, L500.85592, L500.69296, L500.38967, L550.93672 ####[facility] [id number] [place], [place] [address]Si# [phone] SGOT (AST) 27 8-34 U/L Normal 11-26-2016 [facility] ([address]138) Comment: Order Comment: [place]: M Performed By: #### L500.0140 0, L500.14069, L500.08278, L500.28943, L550.56947 ####[facility] [id number] [place], [place] [address]Cq# [phone] Sodium 140 136-145 MMOL/L Normal 11-26-2016 [facility] (34393) Comment: Order Comment: [place]: M Performed By: #### L500.0140 0, L500.92993, L500.82199, L500.33935, L550.32244 ####[facility] [id number] [place], [place] [address]Vd# [phone] Urea nitrogen 8 7-26 MG/DL Normal 11-26-2016 [facility] (19334) Comment: Order Comment: [place]: M Performed By: #### L500.0140 0, L500.09306, L500.92677, L500.88734, L550.75889 ####[facility] [id number] [place], [place] [address]Nq# [phone] cbc w/diff on 11-26 BASO ABS 0.10 0-0.2 K/CU MM Normal 11-26-2016 [facility] ([address]808) Comment: Order Comment: [place]: M Performed By: #### L500.0140 0, L500.42549, L500.54243, L500.22738, L550.51967 ####[facility] [id number] [place], [place] [address]Su# [phone] Basophils/100 WBC Auto (Bld) 1.0 0-2 % Normal 0 11-26-2016 [facility] (11277) Comment: Order Comment: [place]: M Performed By: #### L500.0140 0, L500.00259, L500.63246, L500.97534, L550.54646 ####[address] [address]Nz# [phone] EOS ABS 0.50 0-0.5 K/CU MM Normal 11-26-2016 [facility] (24280) Comment: Order Comment: [place]: M Performed By: #### L500.0140 0, L500.45169, L500.60546, L500.39262, L550.55540 ####[address] [address]Az# [phone] Eosinophils/100 leukocytes 11.0 0-5 % High [facility] (47478) Comment: Order Comment: [place]: M Performed By: #### L500.0140 0, L500.66552, L500.87513, L500.08322, L550.52381 ####[address] [address]Rr# [phone] IMMATR GRAN ABS 0.00 Less than 2 K/CU MM Normal 11-26-2016 [facility] (00 000) Comment: Order Comment: [place]: M Performed By: #### L500.0140 0, L500.19349, L500.79317, L500.69938, L550.91397 ####[address] [address]Gm# [phone] IMMATURE GRAN % 0.8 Less than 2 % Normal 11-26-2016 [facility] (85737) Comment: Order Comment: [place]: M Performed By: #### L500.0140 0, L500.55738, L500.06783, L500.98162, L550.89895 ####[facility] [place], [place] [address]Cp# [phone] Lymphocytes PRESENT Normal 11-26-2016 [facility] ([address]288) Comment: Order Comment: [place]: M Performed By: #### L500.0140 0, L500.76113, L500.63629, L500.04983, L550.46387 ####[address] [address]Iz# [phone] Lymphocytes 2.30 0.9-4.4 K/CU MM Normal 11-26-2016 [facility] (04726) Comment: Order Comment: [place]: M Performed By: #### L500.0140 0, L500.69912, L500.19411, L500.52966, L550.84004 ####[address] [address]Vt# [phone] Lymphocytes/100 leukocytes 47.9 20-40 % High [facility] (92601) Comment: Order Comment: [place]: M Performed By: #### L500.0140 0, L500.44494, L500.37658, L500.78544, L550.07152 ####[address] [place], [place] [address]Om# [phone] MONO ABS 0.30 0.1-1.1 K/CU MM Normal 11-26-2016 [facility] (85272) Comment: Order Comment: [place]: M Performed By: #### L500.0140 0, L500.92760, L500.28894, L500.50279, L550.03144 ####[address] [place], [place] [address]Go# [phone] Monocytes/100 leukocytes 7.0 2-10 % Normal 11-26 [facility] (62190) Comment: Order Comment: [place]: M Performed By: #### L500.0140 0, L500.71497, L500.52586, L500.82223, L550.16961 ####[facility] CZANJHKWJU8316 [place], [place] [address]Nh# [phone] Neutrophils 1.60 2.0-8.3 K/CU MM Low 11-26-2016 [facility] (96134) Comment: Order Comment: [place]: M Performed By: #### L500.0140 0, L500.51683, L500.11478, L500.42090, L550.75928 ####[facility] OBUVRVZNWH2095 [place], [place] [address]Sj# [phone] Neutrophils/100 WBC Auto (Bld) 32.3 45-75 % Low 11-26-2016 [facility] (00 000) Comment: Order Comment: [place]: M Performed By: #### L500.0140 0, L500.90179, L500.17925, L500.61060, L550.00511 ####[facility] VAMRYZCMAC1868 [place], [place] [address]So# [phone] PLT EST SLT DECREASED Normal 11-26-2016 [facility] (90936) Comment: Order Comment: [place]: M Performed By: #### L500.0140 0, L500.40767, L500.92694, L500.25768, L550.10386 ####[facility] HYCXXXDFWL8779 [place], [place] [address]Fw# [phone] POLY 1+ Normal 11-26-2016 [facility] (54457) Comment: Order Comment: [place]: M Performed By: #### L500.0140 0, L500.01098, L500.16574, L500.11248, L550.89307 ####[facility] IBVSTXRUWB6436 [place], [place] [address]Vi# [phone] Erythrocyte distribution 12.9 11-14.5 % Normal 11-26 [facility] width Auto Ratio (RBC) [place] (44082) Comment: Order Comment: [place]: M Performed By: #### L500.0140 0, L500.70372, L500.76779, L500.03390, L550.35450 ####[facility] MAQOIOMZOD0920 [place], [place] [address]Om# [phone] Erythrocytes (RBC) 3.81 4.50-6.00 M/CU MM Low 11-26-2016 [facility] (55132) Comment: Order Comment: [place]: M Performed By: #### L500.0140 0, L500.51034, L500.37084, L500.90830, L550.61335 ####[facility] JXLSTYXNZX9800 [place], [place] [address]Vo# [phone] Erythrocytes (RBC) 0.0 Less than 1 % Normal 7 [facility] (74282) Comment: Order Comment: [place]: M Performed By: #### L500.0140 0, L500.06886, L500.81698, L500.01067, L550.17548 ####[facility] WMXFCSHLCT5443 [place], [place] [address]Nt# [phone] Hematocrit (HCT) 31.9 41.0-53.0 % Low 11-26-2016 [facility] (61998) Comment: Order Comment: [place]: M Performed By: #### L500.0140 0, L500.06861, L500.56578, L500.25014, L550.70584 ####[facility] FDVERNMSGK0684 [place], [place] [address]Yu# [phone] Hemoglobin mass conc (Bld) 11.0 13.5-17.5 G/DL Low [facility] (00 000) Comment: Order Comment: [place]: M Performed By: #### L500.0140 0, L500.70074, L500.33117, L500.43869, L550.99211 ####[facility] WSRLCWFATZ4826 [place], [place] [address]Xp# [phone] MCHC mass conc (RBC) 34.5 32.0-36.0 GM/DL Normal 7 [facility] (00 000) Comment: Order Comment: [place]: M Performed By: #### L500.0140 0, L500.55203, L500.55802, L500.74057, L550.03603 ####[facility] YJQHMAEBDX6386 [place], [place] [address]Qx# [phone] MCV 83.7 80.0-99.0 fl Normal 11-26-2016 [facility] (29446) Comment: Order Comment: [place]: M Performed By: #### L500.0140 0, L500.93482, L500.23299, L500.31181, L550.76335 ####[address] [place], [place] [address]Oi# [phone] Platelet mean volume (PMV) 9.3 9.4-12.4 fL Low [facility] (82394) Comment: Order Comment: [place]: M Performed By: #### L500.0140 0, L500.42644, L500.87509, L500.84295, L550.29182 ####[facility] IOUIHDBDWF4749 [place], [place] [address]Ad# [phone] Platelets 148 150-450 K/CU MM Low 11-26-2016 [facility] (20294) Comment: Order Comment: [place]: M Performed By: #### L500.0140 0, L500.67504, L500.68234, L500.21177, L550.65258 ####[facility] GIPMTTTMPM7751 [place], [place] [address]Oj# [phone] WBC (Leukocytes) 4.8 4.5-11.0 K/CU MM Normal 11-26-2016 [facility] (43101) Comment: Order Comment: [place]: M Performed By: #### L500.0140 0, L500.05966, L500.61066, L500.50111, L550.35826 ####[facility] PKGFYRZRFP1003 [place], [place] [address]Xx# [phone] gfr est on IF AMER Greater than 60 Normal 11-25-[address] [place] [address] (49918) Comment: Order Comment: [place]: M Performed By: #### L500.0140 0, L500.58957, L500.77457, L500.10546, L550.01910 ####[facility] CWYTWWDLQL2002 [place], [place] [address]Nf# [phone] IF non-AFR AMER Greater than 60 Normal 11-25-[address] [place] [address] ([address]600) Comment: Order Comment: [place]: M Performed By: #### L500.0140 0, L500.17972, L500.65631, L500.59029, L550.85234 ####[facility] SXFWUCUSQT3848 [place], [place] [address]Ti# [phone] cmp on 2016-11-24 Alanine aminotransferase (ALT) 36 13-61 IU/L Normal 11-24-2016 [facility] (00 000) Comment: Order Comment: [place]: M Performed By: #### L500.0140 0, L500.66629, L500.30386, L500.74726, L550.52342 ####[facility] JKAKIHQHMV3745 [place], [place] [address]Ls# [phone] Albumin 3.1 3.2-5.0 GM/DL Low 11-24-2016 [facility] (32651) Comment: Order Comment: [place]: M Performed By: #### L500.0140 0, L500.76650, L500.64927, L500.68367, L550.06799 ####[facility] KNEFYRHMLK4179 [place], [place] [address]Iy# [phone] Albumin/Globulin Ratio 1.0 0.8-2.0 {ratio} Normal [address] [place] [address] (00 000) Comment: Order Comment: [place]: M Performed By: #### L500.0140 0, L500.04205, L500.44734, L500.60978, L550.97656 ####[facility] EZWMYZLTAD6404 [place], [place] [address]Ht# [phone] ALK PHOS 136 45-117 U/L High 11-24-2016 [facility] (11470) Comment: Order Comment: [place]: M Performed By: #### L500.0140 0, L500.83221, L500.00565, L500.98859, L550.44317 ####[facility] OVPSUOQRDH1674 [place], [place] [address]Wb# [phone] Anion gap 6 5-16 MMOL/L Normal 11-24-2016 [facility] (29394) Comment: Order Comment: [place]: M Performed By: #### L500.0140 0, L500.01829, L500.49064, L500.10619, L550.24210 ####[facility] ESKNLLBFOQ2698 [place], [place] [address]Bd# [phone] BILI TOTAL 0.4 0.2-1.0 MG/DL Normal 11-24-2016 [facility] (69732) Comment: Order Comment: [place]: M Performed By: #### L500.0140 0, L500.55432, L500.36112, L500.53780, L550.10670 ####[facility] OHVWQRAEIF3309 [place], [place] [address]Mu# [phone] BUN/Creatinine Ratio 12 15-24 mg/mg Low 7 [facility] (52865) Comment: Order Comment: [place]: M Performed By: #### L500.0140 0, L500.92896, L500.36634, L500.17619, L550.31256 ####[facility] NKXAJQDIOJ7142 [place], [place] [address]Fq# [phone] Calcium 8.6 8.5-10.1 MG/DL Normal 11-24-2016 [facility] (39746) Comment: Order Comment: [place]: M Performed By: #### L500.0140 0, L500.30686, L500.72001, L500.64582, L550.36678 ####[facility] TNGSJBCMOC8088 [place], [place] [address]Ll# [phone] Chloride 103 98-107 MMOL/L Normal 11-24-2016 [facility] (71728) Comment: Order Comment: [place]: M Performed By: #### L500.0140 0, L500.09549, L500.16936, L500.74993, L550.27218 ####[facility] XHPAHMHEVB4559 [place], [place] [address]Xs# [phone] CO2 30 21-32 MMOL/L Normal 11-24-2016 [facility] (42918) Comment: Order Comment: [place]: M Performed By: #### L500.0140 0, L500.82049, L500.99391, L500.15831, L550.06380 ####[facility] MRYPXASBUI0455 [place], [place] [address]Gb# [phone] Creatinine 0.992 0.670-1.170 MG/DL Normal 11-24-2016 [facility] (06897) Comment: Order Comment: [place]: M Result Comment: Patients rec eiving either N-Acetylcysteine (NAC) orMetamizole prior to venipu ncture, may have falsely depressedresults. Performed By: #### L500.0140 0, L500.34578, L500.33653, L500.82504, L550.99816 ####[facility] XQIKSWWHGO5576 [place], [place] [address]Wn# [phone] Globulin 3.2 2.2-4.2 GM/DL Normal 11-24-2016 [facility] (55197) Comment: Order Comment: [place]: M Performed By: #### L500.0140 0, L500.86372, L500.46206, L500.31311, L550.21275 ####[facility] IFFGABSSWF2431 [place], [place] [address]Ko# [phone] Glucose mass conc 99 70-100 MG/DL Normal 11-24-2016 [facility] (19463) Comment: Order Comment: [place]: M Result Comment: 36-182-Mltrb l Fasting; 195-629-Vdrgucld Fasting; greaterthan 126 on more than one result- Diabetes. ADA guidelines Performed By: #### L500.0140 0, L500.04094, L500.75989, L500.67499, L550.44581 ####[facility] JHQXIUFIJX7956 [place], [place] [address]Xr# [phone] Potassium molar conc 4.0 3.5-5.1 MMOL/L Normal 7 [facility] (22430) Comment: Order Comment: [place]: M Performed By: #### L500.0140 0, L500.80531, L500.98907, L500.14500, L550.54924 ####[facility] KXPEFDTOSW5880 [place], [place] [address]Ib# [phone] Protein 6.3 6.0-8.5 GM/DL Normal 11-24-2016 [facility] (01105) Comment: Order Comment: [place]: M Performed By: #### L500.0140 0, L500.59299, L500.69464, L500.26373, L550.03871 ####[facility] CXKOUQLGMB9225 [place], [place] [address]Pr# [phone] SGOT (AST) 27 8-34 U/L Normal 11-24-2016 [facility] (81825) Comment: Order Comment: [place]: M Performed By: #### L500.0140 0, L500.94820, L500.44110, L500.59663, L550.95144 ####[facility] AYZFHFZDQZ4372 [place], [place] [address]Ek# [phone] Sodium 139 136-145 MMOL/L Normal 11-24-2016 [facility] (11302) Comment: Order Comment: [place]: M Performed By: #### L500.0140 0, L500.10445, L500.05216, L500.85241, L550.82208 ####[facility] RQSFCZHOZC0107 [place], [place] [address]Nv# [phone] Urea nitrogen 12 7-26 MG/DL Normal 11-24-2016 [facility] (81232) Comment: Order Comment: [place]: M Performed By: #### L500.0140 0, L500.60059, L500.87345, L500.40529, L550.26613 ####[address] [place], [place] [address]Xz# [phone] cbc w/diff on 11-24 BAND % 20.0 0-7 % High 11-24-2016 [facility] (44721) Comment: Order Comment: [place]: M Performed By: #### L500.0140 0, L500.25327, L500.74532, L500.84446, L550.66007 ####[facility] [place], [place] [address]Fc# [phone] BAND ABS 0.90 K/CU MM Normal 11-24-2016 [facility] (80452) Comment: Order Comment: [place]: M Performed By: #### L500.0140 0, L500.11899, L500.27200, L500.66463, L550.62892 ####[facility] FDJHLJAQMR2656 [place], [place] [address]Td# [phone] EOS ABS 0.50 0-0.5 K/CU MM Normal 11-24-2016 [facility] (38510) Comment: Order Comment: [place]: M Performed By: #### L500.0140 0, L500.31069, L500.19767, L500.04136, L550.00331 ####[facility] WREXZYTNZO7372 [place], [place] [address]Tb# [phone] Eosinophils/100 leukocytes 11.0 0-5 % High [facility] (25428) Comment: Order Comment: [place]: M Performed By: #### L500.0140 0, L500.64763, L500.93875, L500.54262, L550.48634 ####[facility] IHIQQYBJUI[address] [place] [address]Ms# [phone] Lymphocytes PRESENT Normal 11-24-2016 [facility] (07224) Comment: Order Comment: [place]: M Performed By: #### L500.0140 0, L500.25633, L500.18295, L500.73647, L550.06215 ####[address] [address]Kk# [phone] Lymphocytes 1.98 0.9-4.4 K/CU MM Normal 11-24-2016 [facility] (03266) Comment: Order Comment: [place]: M Performed By: #### L500.0140 0, L500.92217, L500.53794, L500.10626, L550.15595 ####[address] [place], [place] [address]Lc# [phone] Lymphocytes/100 leukocytes 44.0 20-40 % High [facility] (59427) Comment: Order Comment: [place]: M Performed By: #### L500.0140 0, L500.00850, L500.82073, L500.95209, L550.38423 ####[address] [address]Ix# [phone] MONO ABS 0.27 0.1-1.1 K/CU MM Normal 11-24-2016 [facility] (45419) Comment: Order Comment: [place]: M Performed By: #### L500.0140 0, L500.32364, L500.53886, L500.18491, L550.98784 ####[facility] YCZBQREQJG0349 [place], [place] [address]Rn# [phone] Monocytes/100 leukocytes 6.0 2-10 % Normal 11-24 [facility] (98357) Comment: Order Comment: [place]: M Performed By: #### L500.0140 0, L500.68586, L500.57339, L500.93803, L550.32375 ####[address] [place], [place] [address]Od# [phone] Neutrophils 0.86 2.0-8.3 K/CU MM Low 11-24-2016 [facility] (53866) Comment: Order Comment: [place]: M Performed By: #### L500.0140 0, L500.90654, L500.91132, L500.02854, L550.02587 ####[address] [place], [place] [address]Hz# [phone] Neutrophils/100 WBC Auto (Bld) 19.0 45-75 % Low 11-24-2016 [facility] (00 000) Comment: Order Comment: [place]: M Performed By: #### L500.0140 0, L500.62117, L500.48859, L500.84679, L550.07548 ####[facility] BGVBVCTTIW3364 [place], [place] [address]Yy# [phone] PLT EST ADEQUATE Normal 11-24-2016 [facility] (80958) Comment: Order Comment: [place]: M Performed By: #### L500.0140 0, L500.38240, L500.59877, L500.68089, L550.53422 ####[facility] SOAFYTLLGG7554 [place], [place] [address]Bd# [phone] POLY 1+ Normal 11-24-2016 [facility] (09673) Comment: Order Comment: [place]: M Performed By: #### L500.0140 0, L500.10785, L500.42709, L500.58621, L550.71622 ####[facility] TWJXWELYJU5741 [place], [place] [address]Hl# [phone] Erythrocyte distribution 13.1 11-14.5 % Normal 11-24 [facility] width Auto Ratio (RBC) [place] (27733) Comment: Order Comment: [place]: M Performed By: #### L500.0140 0, L500.50634, L500.13274, L500.08178, L550.75700 ####[facility] QJTOBIUCXI8470 [place], [place] [address]Aa# [phone] Erythrocytes (RBC) 3.85 4.50-6.00 M/CU MM Low 11-24-2016 [facility] (88826) Comment: Order Comment: [place]: M Performed By: #### L500.0140 0, L500.48823, L500.89584, L500.83944, L550.46416 ####[facility] CYZIHRGORB2240 [place], [place] [address]Sv# [phone] Erythrocytes (RBC) 0.0 Less than 1 % Normal [address] [place] [address] (85356) Comment: Order Comment: [place]: M Performed By: #### L500.0140 0, L500.93286, L500.11622, L500.28150, L550.37707 ####[facility] YDOASWLOME7612 [place], [place] [address]Em# [phone] Hematocrit (HCT) 33.0 41.0-53.0 % Low 11-24-2016 [facility] (64476) Comment: Order Comment: [place]: M Performed By: #### L500.0140 0, L500.78973, L500.89719, L500.65000, L550.84289 ####[facility] TMPEHLBZNV5112 [place], [place] [address]Th# [phone] Hemoglobin mass conc (Bld) 11.1 13.5-17.5 G/DL Low [facility] (00 000) Comment: Order Comment: [place]: M Performed By: #### L500.0140 0, L500.48145, L500.12632, L500.42442, L550.40914 ####[facility] LRPPAJBOSV1955 [place], [place] [address]Hn# [phone] MCHC mass conc (RBC) 33.6 32.0-36.0 GM/DL Normal 201 7 [facility] ( 000) Comment: Order Comment: [place]: M Performed By: #### L500.0140 0, L500.81262, L500.51012, L500.37260, L550.77573 ####[facility] YOMXPDKRNX7177 [place], [place] [address]Ti# [phone] MCV 85.7 80.0-99.0 fl Normal 11-24-2016 [facility] (36209) Comment: Order Comment: [place]: M Performed By: #### L500.0140 0, L500.98046, L500.64710, L500.52919, L550.86751 ####[facility] IPAWSNFDAS7400 [place], [place] [address]Fl# [phone] Platelet mean volume (PMV) 9.4 9.4-12.4 fL Normal [facility] ( 000) Comment: Order Comment: [place]: M Performed By: #### L500.0140 0, L500.10704, L500.85714, L500.67158, L550.34506 ####[facility] JQVNUUOBGT0824 [place], [place] [address]Sv# [phone] Platelets 163 150-450 K/CU MM Normal 11-24-2016 [facility] (20880) Comment: Order Comment: [place]: M Performed By: #### L500.0140 0, L500.73749, L500.52370, L500.43510, L550.98311 ####[facility] NCMHGBTGJX0355 [place], [place] [address]Ai# [phone] WBC (Leukocytes) 4.5 4.5-11.0 K/CU MM Normal 11-24-2016 [facility] [place] (80720) Comment: Order Comment: [place]: M Performed By: #### L500.0140 0, L500.46657, L500.92562, L500.81108, L550.25662 ####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 RILPWYUSCI5270 [place], [place] [address]Wm# [phone] microbiology: (p) acid fast bact cult/sm on 2016-11-23 AFBCS . 11-23-11-23-2 017 [facility] (92269) gfr est on IF AMER Greater than 60 Normal 11-23-[address] [place] [address] (28042) Comment: Order Comment: [place]: M Performed By: #### L500.0140 0, L500.04937, L500.76920, L500.05333, L550.57873 ####[facility] MZFYEZIEEU0181 [place], [place] [address]Qq# [phone] IF non-AFR AMER Greater than 60 Normal 11-23-[address] [place] [address] (14767) Comment: Order Comment: [place]: M Performed By: #### L500.0140 0, L500.94846, L500.12644, L500.14480, L550.32869 ####[facility] ZNWNYSDAMA6110 [place], [place] [address]Ul# [phone] cmp on 2016-11-22 Alanine aminotransferase (ALT) 37 13-61 IU/L Normal 11-22-2016 [facility] (00 000) Comment: Order Comment: [place]: M Performed By: #### L500.0140 0, L500.23922, L500.19899, L500.11472, L550.07231 ####[facility] JNSHTFQTHY2965 [place], [place] [address]Nn# [phone] Albumin 3.4 3.2-5.0 GM/DL Normal 11-22-2016 [facility] (39516) Comment: Order Comment: [place]: M Performed By: #### L500.0140 0, L500.77678, L500.07174, L500.33362, L550.84624 ####[facility] EZUMXOABUJ1528 [place], [place] [address]Cg# [phone] Albumin/Globulin Ratio 1.0 0.8-2.0 {ratio} Normal [address] [place] [address] (00 000) Comment: Order Comment: [place]: M Performed By: #### L500.0140 0, L500.78189, L500.71912, L500.84838, L550.23049 ####[facility] JLAYDLOZBF4648 [place], [place] [address]Wr# [phone] ALK PHOS 148 45-117 U/L High 11-22-2016 [facility] (99061) Comment: Order Comment: [place]: M Performed By: #### L500.0140 0, L500.37609, L500.82140, L500.27316, L550.77489 ####[facility] HTABTJXGPE4156 [place], [place] [address]Cl# [phone] Anion gap 5 5-16 MMOL/L Normal 11-22-2016 [facility] ([id number]) Comment: Order Comment: [place]: M Performed By: #### L500.0140 0, L500.69058, L500.17869, L500.43890, L550.87347 ####[facility] [id number] [place], [place] [address]Yx# [phone] BILI TOTAL 0.4 0.2-1.0 MG/DL Normal 11-22-2016 [facility] ([id number]) Comment: Order Comment: [place]: M Performed By: #### L500.0140 0, L500.74939, L500.01828, L500.14576, L550.84840 ####[facility] [id number] [place], [place] [address]Uy# [phone] BUN/Creatinine Ratio 19 15-24 mg/mg Normal 7 [facility] (81284) Comment: Order Comment: [place]: M Performed By: #### L500.0140 0, L500.27188, L500.26800, L500.77938, L550.37199 ####[facility] [id number] [place], [place] [address]Zy# [phone] Calcium 9.1 8.5-10.1 MG/DL Normal 11-22-2016 [facility] (47200) Comment: Order Comment: [place]: M Performed By: #### L500.0140 0, L500.18033, L500.74026, L500.47416, L550.23355 ####[facility] [id number] [place], [place] [address]Wn# [phone] Chloride 101 98-107 MMOL/L Normal 11-22-2016 [facility] (15201) Comment: Order Comment: [place]: M Performed By: #### L500.0140 0, L500.34955, L500.20900, L500.35335, L550.88250 ####[facility] [id number] [place], [place] [address]Dn# [phone] CO2 31 21-32 MMOL/L Normal 11-22-2016 [facility] (02660) Comment: Order Comment: [place]: M Performed By: #### L500.0140 0, L500.38731, L500.95076, L500.60236, L550.93219 ####[facility] [id number] [place], [place] [address]Ol# [phone] Creatinine 0.738 0.670-1.170 MG/DL Normal 11-22-2016 [facility] ([address]2690) Comment: Order Comment: [place]: M Result Comment: Patients rec eiving either N-Acetylcysteine (NAC) orMetamizole prior to venipu ncture, may have falsely depressedresults. Performed By: #### L500.0140 0, L500.96887, L500.47874, L500.74594, L550.27554 ####[facility] [id number] [place], [place] [address]Or# [phone] Globulin 3.3 2.2-4.2 GM/DL Normal 11-22-2016 [facility] (28588) Comment: Order Comment: [place]: M Performed By: #### L500.0140 0, L500.76841, L500.72995, L500.12135, L550.74732 ####[facility] [id number] [place], [place] [address]Vr# [phone] Glucose mass conc 97 70-100 MG/DL Normal 11-22-2016 [facility] (49170) Comment: Order Comment: [place]: M Result Comment: 04-649-Vmxyu l Fasting; 512-945-Pygvmank Fasting; greaterthan 126 on more than one result- Diabetes. ADA guidelines Performed By: #### L500.0140 0, L500.06859, L500.25338, L500.29221, L550.81453 ####[facility] [id number] [place], [place] [address]Qa# [phone] Potassium molar conc 4.1 3.5-5.1 MMOL/L Normal 7 [facility] (01492) Comment: Order Comment: [place]: M Performed By: #### L500.0140 0, L500.51631, L500.49948, L500.02760, L550.82039 ####[facility] [facility] FZQANUMSUF7144 [place], [place] [address]Tm# [phone] Protein 6.7 6.0-8.5 GM/DL Normal 11-22-2016 [facility] (21628) Comment: Order Comment: [place]: M Performed By: #### L500.0140 0, L500.10468, L500.64932, L500.35794, L550.16434 ####[facility] UFNENTZHKB5777 [place], [place] [address]Nl# [phone] SGOT (AST) 30 8-34 U/L Normal 11-22-2016 [facility] (68967) Comment: Order Comment: [place]: M Performed By: #### L500.0140 0, L500.55164, L500.49794, L500.76634, L550.73202 ####[facility] GWTYQGABMM8764 [place], [place] [address]Ll# [phone] Sodium 136 136-145 MMOL/L Normal 11-22-2016 [facility] (42620) Comment: Order Comment: [place]: M Performed By: #### L500.0140 0, L500.22704, L500.44873, L500.45250, L550.68984 ####[address] [place], [place] [address]Tt# [phone] Urea nitrogen 14 7-26 MG/DL Normal 11-22-2016 [facility] (14184) Comment: Order Comment: [place]: M Performed By: #### L500.0140 0, L500.83575, L500.78595, L500.66058, L550.98785 ####[address] [address]Er# [phone] cbc w/diff on 11-22 BASO ABS 0.10 0-0.2 K/CU MM Normal 11-22-2016 [facility] (45971) Comment: Order Comment: [place]: M Performed By: #### L500.0140 0, L500.31832, L500.89323, L500.92345, L550.91998 ####[address] [address]Zy# [phone] Basophils/100 WBC Auto (Bld) 1.5 0-2 % Normal 0 11-22-2016 [facility] (29279) Comment: Order Comment: [place]: M Performed By: #### L500.0140 0, L500.69628, L500.75470, L500.22255, L550.49656 ####[facility] XXDQEZHFZP9887 [place], [place] [address]Du# [phone] EOS ABS 0.50 0-0.5 K/CU MM Normal 11-22-2016 [facility] (29154) Comment: Order Comment: [place]: M Performed By: #### L500.0140 0, L500.59898, L500.15762, L500.78733, L550.33049 ####[address] [address]Jx# [phone] Eosinophils/100 leukocytes 9.0 0-5 % High [facility] (45798) Comment: Order Comment: [place]: M Performed By: #### L500.0140 0, L500.26510, L500.76236, L500.48762, L550.22069 ####[facility] LXPMLQFDWC8352 [place], [place] [address]Wb# [phone] IMMATR GRAN ABS 0.00 Less than 2 K/CU MM Normal 11-22-2016 [facility] (00 000) Comment: Order Comment: [place]: M Performed By: #### L500.0140 0, L500.65416, L500.92656, L500.43419, L550.12641 ####[address] [address]Oh# [phone] IMMATURE GRAN % 0.8 Less than 2 % Normal 11-22-2016 [facility] (64458) Comment: Order Comment: [place]: M Performed By: #### L500.0140 0, L500.77313, L500.03164, L500.56454, L550.66674 ####[address] [address]Bs# [phone] Lymphocytes 2.40 0.9-4.4 K/CU MM Normal 11-22-2016 [facility] (30343) Comment: Order Comment: [place]: M Performed By: #### L500.0140 0, L500.17748, L500.21168, L500.33462, L550.75530 ####[address] [address]Hh# [phone] Lymphocytes/100 leukocytes 46.3 20-40 % High [facility] (13331) Comment: Order Comment: [place]: M Performed By: #### L500.0140 0, L500.49278, L500.98916, L500.93684, L550.08200 ####[address] [address]Nv# [phone] MONO ABS 0.40 0.1-1.1 K/CU MM Normal 11-22-2016 [facility] (50500) Comment: Order Comment: [place]: M Performed By: #### L500.0140 0, L500.32511, L500.43060, L500.14247, L550.14541 ####[address] [place], [place] [address]Mi# [phone] Monocytes/100 leukocytes 7.5 2-10 % Normal 11-22 [facility] (53841) Comment: Order Comment: [place]: M Performed By: #### L500.0140 0, L500.35899, L500.88623, L500.14402, L550.78428 ####[address] [address]Ls# [phone] NC/NC NORMOCYTIC Normal 11-22-2016 [facility] (66972) Comment: Order Comment: [place]: M Performed By: #### L500.0140 0, L500.56079, L500.47397, L500.79863, L550.04997 ####[facility] [place], [place] [address]Dt# [phone] Neutrophils 1.80 2.0-8.3 K/CU MM Low 11-22-2016 [facility] (00994) Comment: Order Comment: [place]: M Performed By: #### L500.0140 0, L500.05974, L500.11056, L500.86832, L550.71217 ####[facility] BHRQZYLEQV1989 [place], [place] [address]Ci# [phone] Neutrophils/100 WBC Auto (Bld) 34.9 45-75 % Low 11-22-2016 [facility] (00 000) Comment: Order Comment: [place]: M Performed By: #### L500.0140 0, L500.93568, L500.72114, L500.11316, L550.28736 ####[facility] YBOQWUJZQS9111 [place], [place] [address]Kv# [phone] PLT EST ADEQUATE Normal 11-22-2016 [facility] (20241) Comment: Order Comment: [place]: M Performed By: #### L500.0140 0, L500.14086, L500.14792, L500.39356, L550.40889 ####[facility] MMXEVYMGOA1096 [place], [place] [address]Ps# [phone] POLY 1+ Normal 11-22-2016 [facility] (16400) Comment: Order Comment: [place]: M Performed By: #### L500.0140 0, L500.69323, L500.86777, L500.55501, L550.28138 ####[address] [address]Vd# [phone] Erythrocyte distribution 12.8 11-14.5 % Normal 11-22 [facility] width Auto Ratio (RBC) [place] (77386) Comment: Order Comment: [place]: M Performed By: #### L500.0140 0, L500.92909, L500.02039, L500.06880, L550.02973 ####[facility] XHFIYKRGKI6879 [place], [place] [address]Ud# [phone] Erythrocytes (RBC) 4.24 4.50-6.00 M/CU MM Low 11-22-2016 [facility] (10012) Comment: Order Comment: [place]: M Performed By: #### L500.0140 0, L500.47095, L500.57858, L500.43638, L550.05972 ####[facility] SABPLWJEYX9899 [place], [place] [address]Hp# [phone] Erythrocytes (RBC) 0.0 Less than 1 % Normal 7 [facility] [place] (85976) Comment: Order Comment: [place]: M Performed By: #### L500.0140 0, L500.05283, L500.53909, L500.41123, L550.97282 ####[facility] YBOGUDTKLY2446 [place], [place] [address]Fz# [phone] Hematocrit (HCT) 35.9 41.0-53.0 % Low 11-22-2016 [facility] (74192) Comment: Order Comment: [place]: M Performed By: #### L500.0140 0, L500.64945, L500.71891, L500.03116, L550.12491 ####[facility] PSDJUCBUET8963 [place], [place] [address]He# [phone] Hemoglobin mass conc (Bld) 12.2 13.5-17.5 G/DL Low [facility] (00 000) Comment: Order Comment: [place]: M Performed By: #### L500.0140 0, L500.82711, L500.60351, L500.84589, L550.52831 ####[facility] JZZDLKZJIE5855 [place], [place] [address]Cq# [phone] MCHC mass conc (RBC) 34.0 32.0-36.0 GM/DL Normal 7 [facility] (00 000) Comment: Order Comment: [place]: M Performed By: #### L500.0140 0, L500.21619, L500.07377, L500.20539, L550.48779 ####[facility] JJTGENUJRY4683 [place], [place] [address]Uu# [phone] MCV 84.7 80.0-99.0 fl Normal 11-22-2016 [facility] (26005) Comment: Order Comment: [place]: M Performed By: #### L500.0140 0, L500.53124, L500.38921, L500.38945, L550.25790 ####[facility] FXQAGJXMWU0628 [place], [place] [address]Db# [phone] Platelet mean volume (PMV) 9.0 9.4-12.4 fL Low [facility] (75865) Comment: Order Comment: [place]: M Performed By: #### L500.0140 0, L500.30003, L500.16908, L500.29649, L550.50996 ####[facility] ZZXNIPCDXQ6789 [place], [place] [address]Ha# [phone] Platelets 189 150-450 K/CU MM Normal 11-22-2016 [facility] (38894) Comment: Order Comment: [place]: M Performed By: #### L500.0140 0, L500.85885, L500.18006, L500.60785, L550.59742 ####[address] [address]La# [phone] WBC (Leukocytes) 5.2 4.5-11.0 K/CU MM Normal 11-22-2016 [facility] (57079) Comment: Order Comment: [place]: M Performed By: #### L500.0140 0, L500.05319, L500.88966, L500.51339, L550.70325 ####[address] [address]Cs# [phone] ur drug abuse on 12-11-24 UR AMPH NEGATIVE Hdtscc=3216 Normal 11-20-2016 [facility] (99214) Comment: Order Comment: [place]: M Performed By: #### L500.0140 0, L500.99675, L500.80070, L500.00124, L550.30501 ####[facility] XSTEHSVCGB7557 [place], [place] [address]Tf# [phone] UR ANNA NEGATIVE Ksmreu=137 Normal 11-20-2016 [facility] (57060) Comment: Order Comment: [place]: M Performed By: #### L500.0140 0, L500.14635, L500.68764, L500.71291, L550.56870 ####[facility] JDLXXFNHHH[address] [place] [address]Qq# [phone] UR JANIS NEGATIVE Gvuvqx=875 Normal 11-20-2016 [facility] (79328) Comment: Order Comment: [place]: M Performed By: #### L500.0140 0, L500.03121, L500.12743, L500.92100, L550.36030 ####[facility] JQBNQLFSAJ5605 [place], [place] [address]Mn# [phone] UR MOY/THC NEGATIVE Cutoff=50 Normal 11-20-2016 [facility] (81774) Comment: Order Comment: [place]: M Performed By: #### L500.0140 0, L500.68236, L500.79649, L500.53655, L550.76316 ####[address] [place], [place] [address]Bi# [phone] UR AFSHIN NEGATIVE Ttkrfs=894 Normal 11-20-2016 [facility] (44835) Comment: Order Comment: [place]: M Performed By: #### L500.0140 0, L500.72005, L500.62269, L500.86256, L550.11764 ####[facility] TZEXATFZLA9582 [place], [place] [address]Om# [phone] UR OPIAT POSITIVE Vzxwwn=246 Normal 11-20-2016 [facility] (31414) Comment: Order Comment: [place]: M Performed By: #### L500.0140 0, L500.61103, L500.66734, L500.38501, L550.98159 ####[facility] HNETOJTOYE4415 [place], [place] [address]Fb# [phone] UR PCP NEGATIVE Cutoff=25 Normal 11-20-2016 [facility] (47722) Comment: Order Comment: [place]: M Performed By: #### L500.0140 0, L500.91226, L500.36260, L500.61388, L550.17581 ####[facility] QTYESSMOAV2648 [place], [place] [address]Kh# [phone] DRAB COMMENT Normal 11-20-2016 [facility] (77454) Comment: Order Comment: [place]: M Result Comment: Urine Drugs of Abuse results are qualitative, providing apreliminary analytical resu lt. A positive result for anassay should be confirmed by another nonimmu nological,reference method. A negative result indicates that theassay mate rial is either not present, or present at levelsbelow the cutoff thres hold for the analytical method range(AMR) validation. Performed By: #### L500.0140 0, L500.69801, L500.15117, L500.87191, L550.43553 ####[facility] PFQBNISVTX9100 [place], [place] [address]Yb# [phone] wsr/mod on WSR/MOD 16 0-15 MM/HR High 11-17-2016 [facility] (85317) Comment: Order Comment: [place]: M: \ Performed By: #### L200.0720 0 ####[facility] LCDOGPGCKZ5475 [place], [place] [address]Pt# zinc on 2016-11-16 ZINC 79 56-134 ug/dL Normal 11-16-2016 [facility] (20934) Comment: Order Comment: [place]: M Result Comment: Detection Li jesus alberto = 5Performed At: [facility] Yyslykmube[address] [place], [place] [address]Tsuyjzs Joaquín Hayden [id number] Performed By: #### L550.0740 0 ####[facility] YVNRZXP7858 [place] [address]Hn# prealb on 2016-10-27 9 PREALB 30 20-40 MG/DL Normal 11-14-2016 [facility] (52251) Comment: Order Comment: [place]: M Performed By: #### L500.0140 0, L500.45137, L500.28080, L500.44952, L550.64469 ####[facility] SQNRRYGFHI3907 [place], [place] [address]Fu# [phone] phos on 2016-11-14 Phosphate 4.9 2.5-4.9 MG/DL Normal 11-14-2016 [facility] (30521) Comment: Order Comment: [place]: M Performed By: #### L500.0140 0, L500.24719, L500.98512, L500.17225, L550.82059 ####[facility] CYACDLFUQF3336 [place], [place] [address]Is# [phone] magnesium on 11-14 Magnesium 2.2 1.6-2.6 MG/DL Normal 11-14-2016 [facility] (75647) Comment: Order Comment: [place]: M Performed By: #### L500.0140 0, L500.96370, L500.67418, L500.01273, L550.82414 ####[facility] OCLUIEQUOM6446 [place], [place] [address]Qa# [phone] hp.ims.con on 11-14 CONSULTATION-H&P This is a preliminary report Norm al 11-14-2016 [facility] only, as the practitioner review [facility] [place] and authentication has not (66134) occurred. HP.IMS.CON [facility] Patient Normal 11-14-2016 [facility] Name: LINDSAY DARLING [id number] [facility] [address] Date of : ([address]) [address] [address] Unit Number: [id number] Number: [id number] Patient Status: REG RCRAttending Doctor: Jeane Gilman DOService Date: 11/14/16 1258History of Present IllnessConsulted ProviderFiSierra murry MDHistory of Present IllnessSara is a 26 yr old male, with a history of IVDU as well as chronic Hep C (untreated), who has been transferred here from [facility] due to osteomyelitis of the rightclavicle, with [...] fevers.Finally, he went to the hospital in [place], where he was taken up to the [...] fracture) MRSA wound infection.He was admitted at [place] and is now s.p removal of hardware from the right clavicle, on11/07.He was treated with IV Vanc while at [place], and a wound vac has been placed.Today, [...] IF AMER Greater than 60 Normal 11-15-[address] [place] [address] ([address]84) Comment: Order Comment: [place]: M Performed By: #### L500.0140 0, L500.85875, L500.71372, L500.46840, L550.64677 ####[facility] BNVXGLLLGF8674 [place], [place] [address]Gm# [phone] IF non-AFR AMER Greater than 60 Normal 11-15-[address] [place] [address] ([address]31) Comment: Order Comment: [place]: M Performed By: #### L500.0140 0, L500.75011, L500.33067, L500.80481, L550.18212 ####[facility] EKFNSPMEAH8577 [place], [place] [address]Bk# [phone] cmp on 2016-11-14 Alanine aminotransferase (ALT) 33 13-61 IU/L Normal 11-14-2016 [facility] (00 000) Comment: Order Comment: [place]: M Performed By: #### L500.0140 0, L500.33283, L500.29359, L500.65224, L550.22838 ####[facility] TDVNWTNFSU0757 [place], [place] [address]Vh# [phone] Albumin 3.8 3.2-5.0 GM/DL Normal 11-14-2016 [facility] (71008) Comment: Order Comment: [place]: M Performed By: #### L500.0140 0, L500.17728, L500.69871, L500.14625, L550.89869 ####[facility] REOSLVGRPF1490 [place], [place] [address]Hw# [phone] Albumin/Globulin Ratio 1.0 0.8-2.0 {ratio} Normal 017 [facility] (00 000) Comment: Order Comment: [place]: M Performed By: #### L500.0140 0, L500.29686, L500.13352, L500.14326, L550.00867 ####[facility] WFJYPHTQFD4004 [place], [place] [address]Wx# [phone] ALK PHOS 123 45-117 U/L High 11-14-2016 [facility] (05282) Comment: Order Comment: [place]: M Performed By: #### L500.0140 0, L500.43141, L500.17797, L500.48855, L550.67467 ####[facility] OHUKYCQAEZ8152 [place], [place] [address]Wu# [phone] Anion gap 8 5-16 MMOL/L Normal 11-14-2016 [facility] (54287) Comment: Order Comment: [place]: M Performed By: #### L500.0140 0, L500.52214,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 information is from the original [...] BE BASED ON THE PRIMARY CLINICAL RECORDS. [facility] provides no warranty or guarantee of the accuracy or completeness of information in this document. UNRECOGNIZED CONTENT PROVIDED BELOW FOR UNRECOGNIZED SECTION No Status Records FoundNo Status Records FoundNo Status Records FoundNo Status Records FoundNo Status Records Found UNRECOGNIZED CONTENT PROVIDED BELOW FOR UNRECOGNIZED SECTION INFORMATION SOURCE DATE CREATED AUTHOR AUTHOR'S ORGANIZATIO N 10/23/2017 [facility] ation DATE CREATED AUTHOR AUTHOR'S ORGANIZATIO N 10/23/2017 [facility] DATE CREATED AUTHOR AUTHOR'S ORGANIZATIO N 11/16/2017 [facility] DATE CREATED AUTHOR AUTHOR'S ORGANIZATIO N 11/12/2018 [facility] DATE CREATED AUTHOR AUTHOR'S ORGANIZATIO N 12/29/2019 [facility] black
== END 2019-09-24 16:26 | disposition home or self-care (01) | DRG 897 ==
LOC: ED 09-22 02:24 → MS3 09-22 04:06
PROVIDERS: Admitting Provider Hospitalist; Emergency Provider Emergency Medicine; Referring Provider Hospitalist; Visit Provider Family Medicine
DX: F11.23 Opioid dependence with withdrawal (principal); B18.2 Chronic viral hepatitis C; H10.33 Unspecified acute conjunctivitis, bilateral; F17.210 Nicotine dependence, cigarettes, uncomplicated; F15.10 Other stimulant abuse, uncomplicated; F12.10 Cannabis abuse, uncomplicated
CPT/HCPCS: 80048; 80076; 80307; 80320; 85025; 85610; 99285; 99406; A4216; G0480

== ENCOUNTER 2021-06-03 15:07 | Emergency (ER) | payer MEDICAID, SELFPAY ==
[2021-06-03 15:10] VITALS: BP 182/106; PULSE 74; RESP 18; TEMP 36.7; O2SAT 97; BMI 31.0
--- NOTE | 2021-06-03 15:21 | EDS_ITS ---
HPI History of Present Illness Chief Complaint: Dental Informant: patient Onset/Context/Timing Onset: Today Context: Sudden Onset Timing: Continuous Quality: Sharp and dull Location: Left upper premolars and molars Worsened by: Nothing Relieved by: - (Nothing) Associated Symptoms Assocated Symptom - Dental: jaw swelling, cold sensitivity and hot sensitivity; Negative for fever or face swelling Narrative Narrative: Patient presents with left upper dental pain that began today. Patient states he has had a fractured tooth for a while but the pain began suddenly today. Patient states his pain is sharp and dull. Patient states the pain is over the left upper premolar molar area. Patient states nothing makes it worse and nothing makes it better. Patient admits to hot and cold sensitivity. Patient admits to sensation of jaw swelling but denies any visible swelling. Patient denies any discharge or drainage. Patient denies any difficulty swallowing. [facility] Medical History (Updated 06/03/21 @ 15:[address] Piter Carias DO) Depression Home Medications ciprofloxacin HCl 2 drp EACH EYE Q4 bottle 09/24/19 [Rx Last Taken Unknown] clindamycin HCl [Cleocin HCl] 300 mg PO Q6H #40 capsule 06/03/21 [Rx Last Taken Unknown] naproxen 500 mg PO BID PRN #20 tab 06/03/21 [Rx Last Taken Unknown] Allergy/AdvReac Type Severity Reaction Status Date / Time latex Allergy Hives Verified 06/03/21 15:10 Penicillins [PCN] Allergy Anaphylaxis Verified 06/03/21 15:10 venom-honey bee Allergy Swelling Verified 06/03/21 15:10 [bee venom (honey bee)] narcotics AdvReac Other Uncoded 06/03/21 15:10 Social History Smoking Status: Current every day smoker tobacco type: cigarettes ROS ROS ED Constitutional Constitutional ED: Denies chills or fever(s) Eyes Eyes: Denies blurry vision or change in vision ENT ENT ED: Denies rhinorrhea or sore throat Cardiovascular Cardiovascular: Denies chest pain or palpitations Respiratory/Chest Respiratory/Chest: Denies cough or dyspnea Gastrointestinal Gastrointestinal: Denies nausea or vomiting Genitourinary Genitourinary ED: Denies dysuria or hematuria Musculoskeletal Musculoskeletal: Reports neck pain; Denies back pain Integumentary Denies abscess or rash Neurologic Neurologic: Reports headache(s); Denies weakness Allergic/Immunologic Allergic/Immunologic ED: Denies mouth swelling or urticaria EXAM Physical Exam Const Vital Signs: 06/03/21 15:10 Temperature 98.0 F Temperature Source Temporal Pulse Rate 74 Respiratory Rate 18 Blood Pressure 182/106 H Blood Pressure Mean 131 Pulse Ox 97 Oxygen Delivery Method Room Air Positive well nourished and well developed General Appearance ED: well developed HEENT HEENT Narrative: There are dental caries noted over the left upper second premolar and first molar. There is some mild gingival edema around these teeth. There is no discharge or drainage. There is no fluctuance. There is tenderness to percussion over these teeth. Mouth ED: Yes oral and palatal mucosa normal, Yes lips normal and Yes tongue normal Mouth: oral and palatal mucosa normal, lips normal and tongue normal Teeth and Gingiva: abnormal tooth and associated gingiva Positive for tenderness, dentin fractured and pulp exposed and caries Throat: posterior oropharynx normal Neck supple and no JVD General: Negative for anterior neck swelling or submandibular swelling Lymph Lymphatic: no lymphadenopathy noted Neuro oriented x3, CN's II-XII intact bilaterally, moves all extremities, no focal motor deficits and no sensory deficits noted Sensorium / Orientation: alert Psych mental status grossly normal Skin no rashes or lesions noted MDM MDM MDM Narrative Medical decision making narrative: Patient was started on clindamycin and Naprosyn. Patient was given his first dose here. Patient was given prescriptions for these. Patient was instructed to follow-up with his dentist as scheduled. Patient was instructed to return if worse in any way. Patient understood and was agreeable with the plan. All questions were answered. Discharge Plan Triage Chief Complaint: Dental ED Provider: Piter Carias Dx/Rx/DC Orders Clinical Impression: Infected dental caries Instructions: ED Dental Cavity Prescriptions: New clindamycin HCl [Cleocin HCl] 300 MG capsule 300 mg PO Q6H Qty: 40 RF: 0 naproxen 500 MG tablet 500 mg PO BID PRN Qty: 20 RF: 0 No Action ciprofloxacin HCl 1 DROP bottle 2 drp EACH EYE Q4 RF: 0 Primary Care Provider: Care Physician,No Primary Referrals: Care Physician,No Primary [Primary Care Provider] - Dentist,Your [STAFF PHYSICIAN] - 3-5 Days Disposition Disposition: Home, Self Care
[2021-06-03] MEDS: Naproxen 250 MG Tablet 500 MG PO (15:41)
[2021-06-03] MEDS: Clindamycin HCl 150 MG Capsule 300 MG PO (15:42)
[2021-06-03 15:45] VITALS: PULSE 77; RESP 17; O2SAT 97
== END 2021-06-03 15:46 | disposition home or self-care (01) ==
PROVIDERS: Emergency Provider Emergency Medicine; Visit Provider Emergency Medicine
DX: K04.7 Periapical abscess without sinus (principal); K02.9 Dental caries, unspecified; F17.210 Nicotine dependence, cigarettes, uncomplicated
CPT/HCPCS: 99283

== ENCOUNTER 2021-08-17 17:08 | Emergency (ER) | payer MEDICAID, SELFPAY ==
[2021-08-17 17:09] VITALS: BP 122/90; PULSE 107; RESP 18; TEMP 37; O2SAT 97; BMI 31.8
--- NOTE | 2021-08-17 17:47 | EX.ED.GENINJ ---
HPI <KAHLIL Kline - Last Filed: 08/17/21 18:58> History of Present Illness Chief Complaint: Nausea/Vomiting/Diarrhea Narrative Narrative: 30-year-old male with history of anxiety, depression, history of opiate abuse presents to the emergency department with 1 day of nausea, vomiting, diarrhea. Patient states he continues to have watery like diarrhea, patient has had multiple nausea and vomiting while trying to eat. Patient went to work today however continued to experience nausea, vomiting, diarrhea and is here for evaluation. Patient denies any generalized abdominal pain, states that his epigastric area mari secondary to retching. Patient denies any fevers however states to have chills and sweats. PFSH <KAHLIL Kline - Last Filed: 08/17/21 18:58> PFSH Medical History (Updated 08/17/21 @ 23:[address] Erik Ruvalcaba, DO) Depression Home Medications fluoxetine 20 mg PO DAILY 08/17/21 [History Last Taken Unknown] ondansetron 4 mg PO Q8H PRN #10 tab 08/17/21 [Rx Last Taken Unknown] Allergy/AdvReac Type Severity Reaction Status Date / Time latex Allergy Hives Verified 08/17/21 17:10 Penicillins [PCN] Allergy Anaphylaxis Verified 08/17/21 17:10 venom-honey bee Allergy Swelling Verified 08/17/21 17:10 [bee venom (honey bee)] narcotics AdvReac Other Uncoded 08/17/21 17:10 Social History Smoking Status: Current every day smoker tobacco type: cigarettes ROS <KAHLIL Kline - Last Filed: 08/17/21 18:58> ROS ED ROS Narrative Constitutional: Negative for fever, chills, weight loss, weakness Eyes: Negative for vision loss, vision change, double vision ENT: Negative for any sore throat, ear pain, congestion Cardiovascular: Negative for any chest pain, tightness, palpitations, racing heartbeat Respiratory: Negative for any cough, sputum production, hemoptysis, shortness of breath, shortness of breath on exertion, orthopnea Gastrointestinal: Negative for any constipation, blood in stool, blood in vomit. Positive for abdominal pain, nausea vomiting diarrhea : Negative for any urinary frequency, incontinence, dysuria, retention, blood in urine Muscle skeletal: Negative for any muscle joint pain, stiffness, myalgias, arthralgias, neck pain, back pain Neurological: Negative for any headache, dizziness, syncope, numbness or tingling Skin: Negative for any rashes, lumps, itching, abrasions, lacerations Psychiatric: Negative for any depression, anxiety, stress, suicidal ideation, homicidal ideation Hematologic: Negative for any easy bruising, excessive bruising, easy bleeding Allergies: Negative for any eczema, hives, rash EXAM <KAHLIL Kline - Last Filed: 08/17/21 18:58> Physical Exam Narrative Exam Narrative: Vital signs reviewed. HEET: Head normocephalic atraumatic, TMs clear bilaterally. Posterior pharynx is clear, dry mucous membranes. Nares clear bilaterally. Neck: Supple with no lymphadenopathy or tenderness. No signs of meningismus, negative jolt sign. Cardiac: Regular rate and rhythm no murmurs gallops or rubs, equal peripheral pulses bilaterally. Respiratory: Lungs clear to auscultation bilaterally. No chest tenderness. Abdomen: Soft, nontender, nondistended. No abdominal bruit or pulsatile masses. No hepatosplenomegaly Extremities: No peripheral edema, no signs of gross trauma or deformity. Active full range of motion of all extremities. Neuro: Cranial nerves II through XII intact, no focal neurological deficits. Skin: Clean dry and intact with no rash, purpura, petechiae, vesicles or pustules. Backslash flank: No CVA tenderness, no midline spinal tenderness, no deformity. Psych: Normal mood and affect. No SI, HI or acute psychosis. Const Vital Signs: 08/17/21 17:09 08/17/21 19:51 Temperature 98.6 F Temperature Source Temporal Pulse Rate 107 H 81 Respiratory Rate 18 18 Blood Pressure 122/90 H Blood Pressure Mean 100 Pulse Ox 97 96 Oxygen Delivery Method Room Air Positive well nourished and well developed General Appearance ED: well developed <Dr. Erik Ruvalcaba DO - Last Filed: 08/17/21 23:11> Physical Exam Const Vital Signs: 08/17/21 17:09 08/17/21 19:51 Temperature 98.6 F Temperature Source Temporal Pulse Rate 107 H 81 Respiratory Rate 18 18 Blood Pressure 122/90 H Blood Pressure Mean 100 Pulse Ox 97 96 Oxygen Delivery Method Room Air [facility] <Ravi TellezNEVIN-C - Last Filed: 08/17/21 18:58> [facility] Narrative Medical decision making narrative: Patient appears well, patient appears nontoxic, vital signs are stable. Patient presents to the emergency department with 1 day of nausea, vomiting, diarrhea. Patient does have past history of drug abuse has been clean for 23 months. Patient did receive IV fluids, IV Zofran, he did improve after these medications. 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 However his liver enzymes are lower than they have been in the past. Patient is feeling much better, and is able to drink by mouth fluids. At this time, patient instructed to follow-up outpatient, he will be given a prescription for Zofran, instructed to maintain hydration and to advance his diet as tolerated. Patient given return precautions and instructed return for worsening symptoms Lab Data Labs: Laboratory Results - last 24 hr 08/17/21 08/17/21 17:45 17:45 WBC 5.6 RBC 6.16 Hgb 18.7 H* Hct 54.0 MCV 87.7 MCH 30.4 MCHC 34.6 RDW Std Deviation 39.0 RDW Coeff of Vanessa 12.1 Plt Count 196 MPV 10.2 Immature Gran % (Auto) 0.500 Neut % (Auto) 82.1 H Lymph % (Auto) 8.9 L [place] % (Auto) 6.8 Eos % (Auto) 1.2 Baso % (Auto) 0.5 Absolute Neuts (auto) 4.6 Absolute Lymphs (auto) 0.50 L Nucleated RBC % 0 Differential Comment Diff Path Review May foll Sodium 137 Potassium 4.0 Chloride 105 Carbon Dioxide 27.0 Anion Gap 5 BUN 17 Creatinine 1.08 Estim Creat Clear Calc 100.01 Est GFR (MDRD) Af Amer 103 Est GFR (MDRD) Non-Af 85 BUN/Creatinine Ratio 15.7 Glucose 118 H Calcium 8.7 Total Bilirubin 1.50 H AST 105 H ALT 134 H Alkaline Phosphatase 126 H Total Protein 8.3 H Albumin 4.5 Globulin 3.8 Albumin/Globulin Ratio 1.2 Lipase 78 <Dr. Erik Ruvalcaba, DO - Last Filed: 08/17/21 23:11> [facility] MDM Narrative Medical decision making narrative: Attending note: Patient seen and evaluated with yield clerk. I perform my own [id number] evaluation. I agree with the plan of work-up., Acute vomiting diarrhea no hematemesis, melena, hematochezia. No urinary symptoms. No fevers. Abdomen moist mucosal membranes soft. Mild tachycardia. IV established fluids Zofran, labs normal white count. Slight transaminitis normal lipase, bilirubin 1.5. Clinically improving tolerating oral fluids. Hepatitis panel sent for further evaluation due to his diarrhea. Nontoxic. Discharged with outpatient follow-up. Lab Data Attestation: I reviewed the patient's lab results. Labs: Laboratory Results - last 24 hr 08/17/21 08/17/21 17:45 17:45 WBC 5.6 RBC 6.16 Hgb 18.7 H* Hct 54.0 MCV 87.7 MCH 30.4 MCHC 34.6 RDW Std Deviation 39.0 RDW Coeff of Vanessa 12.1 Plt Count 196 MPV 10.2 Immature Gran % (Auto) 0.500 Neut % (Auto) 82.1 H Lymph % (Auto) 8.9 L [place] % (Auto) 6.8 Eos % (Auto) 1.2 Baso % (Auto) 0.5 Absolute Neuts (auto) 4.6 Absolute Lymphs (auto) 0.50 L Nucleated RBC % 0 Differential Comment Diff Path Review May foll Sodium 137 Potassium 4.0 Chloride 105 Carbon Dioxide 27.0 Anion Gap 5 BUN 17 Creatinine 1.08 Estim Creat Clear Calc 100.01 Est GFR (MDRD) Af Amer 103 Est GFR (MDRD) Non-Af 85 BUN/Creatinine Ratio 15.7 Glucose 118 H Calcium 8.7 Total Bilirubin 1.50 H AST 105 H ALT 134 H Alkaline Phosphatase 126 H Total Protein 8.3 H Albumin 4.5 Globulin 3.8 Albumin/Globulin Ratio 1.2 Lipase 78 Discharge Plan Triage Chief Complaint: Nausea/Vomiting/Diarrhea ED Midlevel Provider: aRvi Tellez ED Provider: Erik Ruvalcaba Dx/Rx/DC Orders Clinical Impression: Gastroenteritis, Transaminitis Instructions: ED Gastroenteritis, Noninfectious Prescriptions: New ondansetron 4 mg tablet,disintegrating 4 mg PO Q8H PRN (Reason: nausea and vomiting) Qty: 10 RF: 0 No Action fluoxetine 20 mg capsule 20 mg PO DAILY RF: 0 Primary Care Provider: Care Physician,No Primary Referrals: Friend,DO Baljeet [STAFF PHYSICIAN] - Anil Jones MD [STAFF PHYSICIAN] - 3-5 Days if not improving Care Physician,No Primary [Primary Care Provider] - Activity Restrictions/Additional Instructions: You had elevated liver enzymes, this is chronic, please follow-up with staple laster to keep an eye on this. Please advance her diet as tolerated. Use Zofran as needed. Print Language: Macanese Disposition Disposition: Home, Self Care Discharge Date/Time: 08/17/21 19:52
[2021-08-17] MEDS: Ketorolac 15 MG/ML Vial IV (17:54)
[2021-08-17] MEDS: Ondansetron 4 MG/2 ML Vial IV (17:54)
[2021-08-17] MEDS: 0.9% Normal Saline 1,000 ML 1000 ML IV (17:55)
[2021-08-17 17:56] LABS: Absolute Neutrophil Count 4.6 X10^3/uL (2.0-7.7); Basophil# 0.03 X10^3/uL; Basophil% 0.5 % (0-1); Eosinophil# 0.07 X10^3/uL; Eosinophils% 1.2 % (0-5); Hemoglobin 18.7 g/dL (13.0-16.5); Lymphocyte % 8.9 % (19-41); Mean Corp Hgb Conc 34.6 g/dL (32-36); Mean Corpuscular Hgb 30.4 pg (27.0-32.0); Mean Corpuscular Volume 87.7 fL (80-94); Mean Platelet Vol. 10.2 fl (6.2-12.0); Monocyte# 0.38 X10^3/uL; Monocyte% 6.8 % (0-10); NRBC Flagged by Analyzer 0 % (0-5); Neutrophil % 82.1 % (47-70); POSITIVE DIFFERENTIAL YES; Platelet Count 196 K/mm3 (150-450); RBC Distribution Width CV 12.1 % (11.6-14.6); Red Blood Count 6.16 M/mm3 (4.6-6.2); White Blood Count 5.6 K/mm3 (4.4-11.0)
[2021-08-17 17:58] LABS: Differential Indicated SCAN CRITERIA MET
[2021-08-17 18:21] LABS: ALB/GLOB Ratio 1.2 RATIO (0.9-2.4); AST(SGOT) 105 U/L (15-37); Alanine Aminotransfer ALT/SGPT 134 U/L (16-61); Albumin, Serum 4.5 g/dL (3.2-5.0); Alkaline Phosphatase 126 U/L (45-117); Anion Gap 5 (5-15); BUN 17 mg/dL (7-18); BUN/Creat Ratio 15.7 RATIO (10-20); Calcium,Total 8.7 mg/dL (8.5-10.1); Chloride 105 mmol/L (98-107); Creatinine, Serum 1.08 mg/dL (0.70-1.30); EST Glomerular Filtration Rate 85 mL/min (>60); Est Glom Filt Rate - Afr Amer 103 mL/min (>60); Estimated Creatinine Clearance 100.01 ml/min; Globulin 3.8 g/dL (2.2-4.2); Glucose 118 mg/dL (74-106); Lipase 78 U/L (73-393); Protein, Total 8.3 g/dL (6.4-8.2); Sodium Level 137 mmol/L (136-145)
[2021-08-17 19:51] VITALS: PULSE 81; RESP 18; O2SAT 96
[2021-08-18 13:58] LABS: Pathologist Review Reviewed
[2021-08-19 04:07] LABS: HEPATITIS B SURFACE AG Negative (Negative); Hepatitis A IgM Antibody Negative (Negative); Hepatitis B Core AB IgM Negative (Negative)
[2021-08-19 11:23] LABS: Hep C Antibodies >11.0 s/co ratio (0.0-0.9)
== END 2021-08-17 19:52 | disposition home or self-care (01) ==
PROVIDERS: Nurse Practitioner; Emergency Provider Emergency Medicine; Visit Provider Emergency Medicine
DX: K52.9 Noninfective gastroenteritis and colitis, unspecified (principal); F41.9 Anxiety disorder, unspecified; F17.210 Nicotine dependence, cigarettes, uncomplicated; F32.A Depression, unspecified; Z79.899 Other long term (current) drug therapy; R74.01 Elevation of levels of liver transaminase levels; Z87.898 Personal history of other specified conditions
CPT/HCPCS: 80053; 80074; 83690; 85025; 96361; 96374; 96375; 99284; J7030; A4216; J2405

== ENCOUNTER 2021-12-12 01:33 | Emergency (ER) | payer BC, MEDICAID, SELFPAY ==
[2021-12-12 01:34] VITALS: BP 164/105; PULSE 79; RESP 18; TEMP 36.4; O2SAT 99; BMI 30.2
--- NOTE | 2021-12-12 01:47 | EDS_ITS ---
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 He bent over and thinks he bent and twisted. He got sharp pain in his back but he was able to finish the shift. He did not think it was that bad at the time. But since then has been still slowly worsening.'s in his left mid lumbar area. Gets worse with more activity and bending. He does not have any bowel or bladder dysfunction. He states it was sore when he sat on the toilet he had to strain a little bit to move his bowels but no incontinence. And no difficulty urinating. He has never had radicular symptoms. He has had occasional back issues before before but normally he can just take an aspirin and its gone. Never anything significant. Patient did want to let us know that he is on Vivitrol and has prior history of opioid abuse and does not want opioids. Patient also has not had fevers chills or recent infections. [facility] Medical History Depression Home Medications fluoxetine 20 mg capsule (Prozac) 20 mg PO DAILY 08/17/21 [History Last Taken Unknown] cyclobenzaprine 10 mg tablet 10 mg PO BID PRN muscle spasm #10 tabs 12/12/21 [Rx Last Taken Unknown] naltrexone microspheres 380 mg intramuscular suspension,extended release (Vivitrol) mg IM 12/12/21 [History Last Taken Unknown] naproxen 500 mg tablet 500 mg PO BID #20 tabs 12/12/21 [Rx Last Taken Unknown] Allergy/AdvReac Type Severity Reaction Status Date / Time latex Allergy Hives Verified 08/17/21 17:10 Penicillins [PCN] Allergy Anaphylaxis Verified 08/17/21 17:10 venom-honey bee Allergy Swelling Verified 08/17/21 17:10 [bee venom (honey bee)] narcotics AdvReac Other Uncoded 08/17/21 17:10 Social History Smoking Status: Current every day smoker tobacco type: cigarettes ROS ROS ED Constitutional Constitutional ED: Denies fever(s) ENT ENT ED: Denies rhinorrhea Cardiovascular Cardiovascular: Denies chest pain or palpitations Respiratory/Chest Respiratory/Chest: Denies cough Gastrointestinal Gastrointestinal: Denies abdominal pain, constipation, diarrhea, melena, nausea or vomiting Genitourinary Genitourinary ED: Denies dysuria, hematuria or urinary frequency Musculoskeletal Musculoskeletal: Reports back pain; Denies neck pain Integumentary Denies rash Neurologic Neurologic: Denies headache(s), paresthesias or weakness Hematologic/Lymphatic Hematologic/Lymphatic: Denies easy bleeding or easy bruising Allergic/Immunologic Allergic/Immunologic ED: Denies urticaria EXAM Physical Exam Const Vital Signs: 12/12/21 01:34 Temperature 97.5 F L Temperature Source Temporal Pulse Rate 79 Respiratory Rate 18 Blood Pressure 164/105 H Blood Pressure Mean 124 Pulse Ox 99 Oxygen Delivery Method Room Air Positive well nourished and well developed General Appearance ED: well developed and NAD HEENT atraumatic Chest Wall inspection of chest normal Resp normal respiratory effort and clear to auscultation bilaterally Auscultation: Negative for rales, rhonchi or wheezes Cardio regular rhythm and no murmurs Rate: regular rate GI normal to inspection, nondistended, normoactive bowel sounds, non-tender and non-distended Auscultation: normoactive bowel sounds Back/Spine normal to inspection Back/Spine Narrative: No visible spasm. But he does have some palpable muscular spasm in the left paraspinals in the mid lumbar area. He states this is where it sore. There is no bruising or rashes. No midline bony tenderness or percussion tenderness. No tenderness on the right side. Neuro oriented x3 Neuro Narrative: Patient has normal gait strength. He has brisk reflexes both patellar and Achilles. No sensory changes. Sensorium / Orientation: alert Deep Tendon Reflexes: Rt Patellar (L4): 2+, Lt Patellar (L4): 2+, Rt Ankle (S1): 2+ and Lt Ankle (S1): 2+ Deep Tendon Reflexes Back: Rt Patellar (L4): 2+, Lt Patellar (L4): 2+, Rt Ankle (S1): 2+ and Lt Ankle (S1): 2+ Psych mental status grossly normal Skin no rashes or lesions noted MDM MDM MDM Narrative Medical decision making narrative: Patient has palpable muscle spasm. He does not have radicular symptoms at this time. No bowel or bladder dysfunction. I do not think this is acute disc pathology at this point. I think rest ice nonsteroidals and muscle relaxants will be appropriate. I will write him off of work for couple days to let this rest because he does a quite a bit of lifting and bending at work and I do not think this will improve until he has a break. We discussed returning with worsening pain, numbness, tingling, difficulty with bowel or bladder function. Discharge Plan Triage Chief Complaint: Back ED Provider: Tal Campuzano Dx/Rx/DC Orders Clinical Impression: Lumbar strain, Lumbar paraspinal muscle spasm Instructions: ED Back Sprain/Strain, ED Muscle Spasm Prescriptions: New cyclobenzaprine 10 mg tablet 10 mg PO BID PRN (Reason: muscle spasm) Qty: 10 0RF naproxen 500 mg tablet 500 mg PO BID Qty: 20 0RF No Action fluoxetine [Prozac] 20 mg capsule 20 mg PO DAILY Label Comments: take 1 capsule by mouth as directed Vivitrol 380 mg suspension,extended rel recon IM Label Comments: ADMINISTER VIVITROL 380MG SUSPENSION BY DEEP INTRAMUSCULAR INJECTION INTO A GLUTEAL MUSCLE, ALTERNATING BUTTOCKS PER MONTHLY INJECTION. KEEP REFRIGERATED. Primary Care Provider: Care Physician,No Primary Referrals: [facility] [Provider Group] - 2 Days for wound check Care Physician,No Primary [Primary Care Provider] - Disposition Disposition: Home, Self Care
[2021-12-12] MEDS: cycloBENZAPRine HCl 10 MG Tablet PO (02:48)
[2021-12-12] MEDS: Naproxen 500 MG Tablet PO (02:48)
== END 2021-12-12 02:49 | disposition home or self-care (01) ==
LOC: ED 01:59
PROVIDERS: Emergency Provider Emergency Medicine; Visit Provider Emergency Medicine
DX: S39.012A Strain of muscle, fascia and tendon of lower back, initial encounter (principal); F17.210 Nicotine dependence, cigarettes, uncomplicated; X50.1XXA Overexertion from prolonged static or awkward postures, initial encounter; F32.A Depression, unspecified; Z79.899 Other long term (current) drug therapy; M62.830 Muscle spasm of back
CPT/HCPCS: 99284

== ENCOUNTER 2022-04-04 16:58 | Emergency (ER) | payer BC, MEDICAID, SELFPAY ==
[2022-04-04 16:59] VITALS: BP 155/105; PULSE 83; RESP 18; TEMP 36.3; O2SAT 94; BMI 30.1
--- NOTE | 2022-04-04 17:08 | EKG12_ITS ---
Test Reason : PALPS Blood Pressure : / mmHG Vent. Rate : 075 BPM Atrial Rate : 075 BPM P-R Int : 164 ms QRS Dur : 116 ms QT Int : 384 ms P-R-T Axes : 058 062 054 degrees QTc Int : 428 ms Normal sinus rhythm Normal ECG Confirmed by DANNY MEZA, MATHEW ([id number]), state editor RONNELL BLACK ([id number]) on 04/10/2022 10:15:06 AM Referred By: TL Confirmed By:EILEEN DELGADO MD
--- NOTE | 2022-04-04 19:14 | EDS_ITS ---
HPI History of Present Illness Chief Complaint: Palpitations Detail of Chief Complaint: No chest pain Informant: patient Onset/Context/Timing Onset: Yesterday Activity at onset: sudden Timing: Intermittent Current Severity: Gone Worsened By: Nothing Relieved By: Nothing Associated Symptoms: Negative for Nausea, Vomiting, Diaphoresis, Dyspnea, Cough, Fever, Lightheadedness, Acid Reflux or Palpitations Narrative Narrative: 31-year-old male history of polysubstance abuse. No cardiac history. Suggested he had palpitations with a resting heart rate around 160. No chest pain or dyspnea lasted about 2 hours he was actually coming the ER to have it evaluated when his car broke down and he could not come to the emergency department yesterday. He denies any history of DVT or PE. No calf pain or swelling. He has no other symptoms. Currently he is symptom-free. Prior Similar Symptoms: Yes Recent Illness/Hospitalization: No CVD Risk Factors: Negative for Hypertension, Diabetes, Hypercholesterolemia or Smoking PE Risk Factors: Negative for Recent Travel/Surgery, Recent Immobilization, Prior DVT or PE, Cancer or OCP + Smoking + >/=35 TAD Risk Factors: Negative for Marfan's Syndrome [facility] Medical History Depression Opioid withdrawal syndrome Home Medications fluoxetine 20 mg capsule (Prozac) 20 mg PO DAILY 08/17/21 [History Last Taken Unknown] Allergy/AdvReac Type Severity Reaction Status Date / Time latex Allergy Hives Verified 04/04/22 17:00 Penicillins [PCN] Allergy Anaphylaxis Verified 04/04/22 17:00 venom-honey bee Allergy Swelling Verified 04/04/22 17:00 [bee venom (honey bee)] narcotics AdvReac Other Uncoded 04/04/22 17:00 Social History Smoking Status: Current every day smoker tobacco type: e-cigarettes ROS ROS ED ROS Narrative Palpitations. Review of Systems ROS Unobtainable: Denies due to encephalopathy Constitutional Constitutional ED: Denies chills or fever(s) Eyes Eyes: Reports none ENT ENT ED: Denies ear pain Cardiovascular Cardiovascular: Reports as per HPI, palpitations and racing heartbeat; Denies chest pain Respiratory/Chest Respiratory/Chest: Denies cough or dyspnea Gastrointestinal Gastrointestinal: Denies abdominal pain Genitourinary Genitourinary ED: Denies dysuria Musculoskeletal Musculoskeletal: Denies arthralgias Integumentary Denies abscess Neurologic Neurologic: Denies headache(s) Psychiatric Psychiatric: Denies anxiety Endocrine Endocrinology: Denies cold intolerance Hematologic/Lymphatic Hematologic/Lymphatic: Denies easy bleeding Allergic/Immunologic Allergic/Immunologic ED: Denies mouth swelling or tongue swelling EXAM Physical Exam Narrative Exam Narrative: Well-appearing 31-year-old male no acute distress vital signs stable afebrile heart rates 83. H EENT exam unremarkable. Neck nontender. Lungs clear to auscultation bilaterally. Heart regular rate and rhythm rate 80s no murmur. Chest wall nontender. Abdomen soft nontender. Moving all 4 extremities. Equal symmetrical radial pulses. Calves are nontender without edema or cords. Neurologic exam normal. Const Vital Signs: 04/04/22 16:59 04/04/22 18:43 Temperature 97.3 F L Temperature Source Temporal Pulse Rate 83 Respiratory Rate 18 Respiratory Effort Normal Non-Labored Blood Pressure 155/105 H Blood Pressure Mean 121 Pulse Ox 94 Oxygen Delivery Method Room Air Positive well nourished and well developed; Negative for obese, cachectic, contractures or unkempt General Appearance ED: well developed and NAD; Negative for unkempt, cachectic, contractures or pallor Nutritional Appearance: Negative for cachectic or obese HEENT Reports moist mucous membranes; Denies dry mucous membranes normocephalic and atraumatic; Negative for trauma or tenderness Mouth ED: No dry mucous membranes Mouth: No dry mucous membranes Eyes PERRL and EOMs intact bilaterally General Eye ED: Negative for pale conjunctiva or scleral icterus Neck no lymphadenopathy, supple and no JVD General: Negative for tenderness Chest Wall inspection of chest normal and palpation of chest normal Chest: Negative for tenderness Resp normal respiratory effort and clear to auscultation bilaterally Effort and Inspection: Negative for respiratory distress Auscultation: Negative for rales, rhonchi or wheezes Cardio regular rate, regular rhythm, S1 normal heart sound, S2 normal heart sound and no murmurs Rate: Negative for bradycardia or tachycardic Rhythm: Negative for abnormal rhythm Peripheral Pulses: pulses 2+ throughout GI normal to inspection, nondistended, normoactive bowel sounds, soft to palpation, non-tender, non-distended and no masses Auscultation: Negative for hyperactive bowel sounds Palpation: Negative for splenomegaly Back/Spine no CVA tenderness and no thoracic nor lumbar tenderness General Back: Negative for CVA tenderness Cervical Spine: Negative for cervical spine tenderness Extremity normal to inspection General Extremety ED: Negative for edema or pulses abnormal General Extremity: Negative for edema or pulses abnormal Neuro oriented x3 and CN's II-XII intact bilaterally Sensorium / Orientation: awake, alert, oriented to person, oriented to place and oriented to time; Negative for confused, lethargic or stuporous Motor Exam: strength 5/5 throughout Psych mental status grossly normal Appearance: Negative for unkempt Attitude: No agitated Mood & Affect: Negative for depressed, anxious or tearful Skin no rashes or lesions noted and no wounds General Skin Exam: Negative for jaundice or pallor Rashes: No rashes noted Trauma: Negative for abrasion or laceration MDM MDM MDM Narrative Medical decision making narrative: Young male with palpitations yesterday. EKG is normal. Exam is completely normal. He will be referred to outpatient follow-up for cardiac monitoring either event or Holter monitor. He has had recent labs in the last 6 months which were unremarkable other than elevated liver enzymes and he has a history of hepatitis. Rhythm Strip Rhythm Strip: Sinus Rhythm Rate: 75 Ectopy: None EKG Initial EKG: Attestation: I personally reviewed and interpreted this EKG as follows: Interpretation: Sinus Rhythm and No Acute Injury Pattern Comments: Normal sinus rhythm rate of 75 no acute signs of PA, ischemia or dysrhythmia. Discharge Plan Triage Chief Complaint: Palpitations ED Provider: Aniket Bucio Dx/Rx/DC Orders Clinical Impression: Heart palpitations Instructions: ED Palpitations Prescriptions: No Action fluoxetine [Prozac] 20 mg capsule 20 mg PO DAILY Label Comments: take 1 capsule by mouth as directed Primary Care Provider: Care Physician,No Primary Referrals: Cain Rick MD [Med Staff - Active Staff] - As soon as possible Care Physician,No Primary [Primary Care Provider] - Activity Restrictions/Additional Instructions: Your exam and EKG were normal today. You have some type of tachycardia. The only way to diagnose this is to catch it on either a monitor or EKG. Call and follow-up with the [facility] office they can get you on either a Holter or an event monitor to try to capture the fast heart rate and determine what it is and what is causing it. Disposition Disposition: Home, Self Care
[2022-04-04 19:58] VITALS: BP 141/97; PULSE 71; RESP 19; O2SAT 94
== END 2022-04-04 20:03 | disposition home or self-care (01) ==
PROVIDERS: Emergency Provider Emergency Medicine; Visit Provider Emergency Medicine
DX: R00.2 Palpitations (principal); R74.8 Abnormal levels of other serum enzymes; F17.290 Nicotine dependence, other tobacco product, uncomplicated; Z86.19 Personal history of other infectious and parasitic diseases
CPT/HCPCS: 93005; 99282

== ENCOUNTER 2022-04-17 11:38 | Emergency (ER) | payer BC, MEDICAID, SELFPAY ==
[2022-04-17 11:38] VITALS: BP 140/102; PULSE 99; RESP 16; TEMP 36.3; O2SAT 96; BMI 30.1
--- NOTE | 2022-04-17 12:10 | EDS_ITS ---
HPI <CON Young - Last Filed: 04/17/22 13:43> History of Present Illness Chief Complaint: Nausea/Vomiting/Diarrhea Narrative Narrative: Presents today with nausea, vomiting, and diarrhea that started last night. Patient states his son is sick with similar symptoms. Several members of his family are sick with similar symptoms after they all got together Saturday for a family dinner. Past abdominal surgeries include cholecystectomy. Patient also states he had chills last night. Patient states he did notice some red color in his vomit this morning, however, he ate a whole bag of flaming hot Cheetos last night and thinks that this might be why. Patient denies melena, hematochezia, and fever. PFSH <CON Young - Last Filed: 04/17/22 13:43> PFSH Medical History Depression Opioid withdrawal syndrome Home Medications fluoxetine 20 mg capsule (Prozac) 40 mg PO DAILY 08/17/21 [History Last Taken Unknown] ondansetron 4 mg disintegrating tablet 4 mg PO Q8H PRN nausea and vomiting #10 tabs 04/17/22 [Rx Last Taken Unknown] Allergy/AdvReac Type Severity Reaction Status Date / Time latex Allergy Hives Verified 04/17/22 11:40 Penicillins [PCN] Allergy Anaphylaxis Verified 04/17/22 11:40 venom-honey bee Allergy Swelling Verified 04/17/22 11:40 [bee venom (honey bee)] Opioids - Morphine Analogues AdvReac Other Verified 04/17/22 11:40 [narcotics] Social History Smoking Status: Current some day smoker tobacco type: e-cigarettes ROS <CON Young - Last Filed: 04/17/22 13:43> ROS ED Constitutional Constitutional ED: Reports chills and sweats; Denies fever(s) Eyes Eyes: Denies blurry vision or change in vision ENT ENT ED: Denies rhinorrhea or sore throat Cardiovascular Cardiovascular: Denies chest pain, palpitations or racing heartbeat Respiratory/Chest Respiratory/Chest: Denies cough, dyspnea or dyspnea on exertion Gastrointestinal Gastrointestinal: Reports abdominal pain, diarrhea, nausea and vomiting; Denies constipation, hematochezia or melena Genitourinary Genitourinary ED: Denies dysuria, hematuria or urinary frequency Musculoskeletal Musculoskeletal: Denies back pain, myalgias or neck pain Integumentary Denies abscess, Abrasions or rash Neurologic Neurologic: Denies headache(s), paresthesias or weakness Psychiatric Psychiatric: Denies anxiety, depression or suicidal ideation EXAM <CON Young - Last Filed: 04/17/22 13:43> Physical Exam Const Vital Signs: 04/17/22 11:38 Temperature 97.3 F L Temperature Source Temporal Pulse Rate 99 Respiratory Rate 16 Blood Pressure 140/102 H Blood Pressure Mean 114 Pulse Ox 96 Oxygen Delivery Method Room Air Positive well nourished and well developed General Appearance ED: well developed and NAD HEENT Reports moist mucous membranes Negative for trauma Eyes PERRL and EOMs intact bilaterally Neck no lymphadenopathy and supple Chest Wall inspection of chest normal Resp normal respiratory effort and clear to auscultation bilaterally Cardio regular rate, regular rhythm and no murmurs GI normal to inspection, nondistended, normoactive bowel sounds and no masses Palpation: soft Extremity normal to inspection Neuro oriented x3, CN's II-XII intact bilaterally and no sensory deficits noted Sensorium / Orientation: alert Motor Exam: strength 5/5 throughout Psych mental status grossly normal Skin no rashes or lesions noted, no wounds and skin turgor normal <Dr. Robert Briceno DO - Last Filed: 04/17/22 13:25> Physical Exam Const Vital Signs: 04/17/22 11:38 Temperature 97.3 F L Temperature Source Temporal Pulse Rate 99 Respiratory Rate 16 Blood Pressure 140/102 H Blood Pressure Mean 114 Pulse Ox 96 Oxygen Delivery Method Room Air MDM <CON Young - Last Filed: 04/17/22 13:43> [facility] Narrative Medical decision making narrative: I have personally performed a face to face assessment of the patient and have reviewed the ACACIA Note. I performed a substantive portion of the visit including all aspects of the following. My ibarra findings include: History is patient presents the emergency department with complaint of vomiting and diarrhea that started last evening around midnight. Patient states that he is thrown up more than 7 times and has had 7 watery stools. Patient was incontinent of stool at 1 point. Patient states that he was at a family get together 3 days ago and multiple people from their are ill. 's son also ill with vomiting and diarrhea. Patient has had chills and body aches. He denies fever as he does not have a thermometer but at times felt hot. Patient denies abdominal pain. Exam is [HEENT-PERRLA, EOMI. Cranial nerves II through XII grossly intact. TMs clear. Mucous membranes moist. No adenopathy. Cardiovascular-regular rate and rhythm without murmur or ectopy Lungs-clear to auscultation, chest wall stable without crepitus or subcu emphysema Abdomen-normoactive bowel sounds, soft, nontender, no rebound or rigidity, no peritoneal signs. Extremities-intact ?4, normal range of motion, normal pulses, atraumatic] Medical Decison Making [patient received a liter normal same fluid bolus. Patient received Zofran and Imodium. He had no further vomiting. Patient is feeling improved and would like to go home. Patient given a prescription for Zofran and advised use Imodium as needed for persistent diarrhea. He is advised to push fluids. Patient to return if persistent vomiting, diarrhea, dehydration, severe abdominal pain, or condition worsen anyway. I suspect patient likely has a viral gastroenteritis.] Other additions or changes: [None] Patient was given Zofran and Imodium as well as a liter of fluids. Upon reex amination patient states he is feeling much better and thinks he can go home. Patient has been in a prescription for Zofran and advised to use Imodium as needed. I have encouraged him to drink plenty of fluids. He has been given return instructions. I am comfortable with patient discharging home and patient is comfortable with plan. Lab Data Attestation: I reviewed the patient's lab results. Lab results narrative: Elevated neutrophils, decreased lymphocytes. BUN 20. Labs: Laboratory Results - last 24 hr 04/17/22 04/17/22 12:20 12:20 WBC 8.0 RBC 5.19 Hgb 15.9 Hct 44.2 MCV 85.2 MCH 30.6 MCHC 36.0 RDW Std Deviation 37.2 RDW Coeff of Vanessa 12.0 Plt Count 226 MPV 9.4 Immature Gran % (Auto) 0.500 Neut % (Auto) 90.0 H Lymph % (Auto) 5.0 L Jasper % (Auto) 3.8 Eos % (Auto) 0.3 Baso % (Auto) 0.4 Absolute Neuts (auto) 7.2 Absolute Lymphs (auto) 0.40 L Nucleated RBC % 0 Sodium 139 Potassium 3.5 Chloride 105 Carbon Dioxide 27.0 Anion Gap 7 BUN 20 H Creatinine 0.84 Estim Creat Clear Calc 131.56 Est GFR (MDRD) Af Amer 136 Est GFR (MDRD) Non-Af 113 BUN/Creatinine Ratio 23.7 H Glucose 115 H Calcium 8.7 <Dr. Robert Bricneo, DO - Last Filed: 04/17/22 13:25> [facility] MDM Narrative Medical decision making narrative: I have personally performed a face to face assessment of the patient and have reviewed the ACACIA Note. I performed a substantive portion of the visit including all aspects of the following. My ibarra findings include: History is patient presents the emergency department with complaint of vomiting and diarrhea that started last evening around midnight. Patient states that he is thrown up more than 7 times and has had 7 watery stools. Patient was incontinent of stool at 1 point. Patient states that he was at a family get together 3 days ago and multiple people from their are ill. 's son also ill with vomiting and diarrhea. Patient has had chills and body aches. He denies fever as he does not have a thermometer but at times felt hot. Patient denies abdominal pain. Exam is [HEENT-PERRLA, EOMI. Cranial nerves II through XII grossly intact. TMs clear. Mucous membranes moist. No adenopathy. Cardiovascular-regular rate and rhythm without murmur or ectopy Lungs-clear to auscultation, chest wall stable without crepitus or subcu emphysema Abdomen-normoactive bowel sounds, soft, nontender, no rebound or rigidity, no peritoneal signs. Extremities-intact ?4, normal range of motion, normal pulses, atraumatic] Medical Decison Making [patient received a liter normal same fluid bolus. Patient received Zofran and Imodium. He had no further vomiting. Patient is feeling improved and would like to go home. Patient given a prescription for Zofran and advised use Imodium as needed for persistent diarrhea. He is advised to push fluids. Patient to return if persistent vomiting, diarrhea, dehydration, severe abdominal pain, or condition worsen anyway. I suspect patient likely has a viral gastroenteritis.] Other additions or changes: [None] Lab Data Labs: Laboratory Results - last 24 hr 04/17/22 04/17/22 12:20 12:20 WBC 8.0 RBC 5.19 Hgb 15.9 Hct 44.2 MCV 85.2 MCH 30.6 MCHC 36.0 RDW Std Deviation 37.2 RDW Coeff of Vanessa 12.0 Plt Count 226 MPV 9.4 Immature Gran % (Auto) 0.500 Neut % (Auto) 90.0 H Lymph % (Auto) 5.0 L Jasper % (Auto) 3.8 Eos % (Auto) 0.3 Baso % (Auto) 0.4 Absolute Neuts (auto) 7.2 Absolute Lymphs (auto) 0.40 L Nucleated RBC % 0 Sodium 139 Potassium 3.5 Chloride 105 Carbon Dioxide 27.0 Anion Gap 7 BUN 20 H Creatinine 0.84 Estim Creat Clear Calc 131.56 Est GFR (MDRD) Af Amer 136 Est GFR (MDRD) Non-Af 113 BUN/Creatinine Ratio 23.7 H Glucose 115 H Calcium 8.7 Discharge Plan Triage Chief Complaint: Nausea/Vomiting/Diarrhea ED Midlevel Provider: Shelley Little ED Provider: Robert Briceno Dx/Rx/DC Orders Clinical Impression: Gastroenteritis Instructions: ED Gastritis (Adult) Prescriptions: New ondansetron 4 mg tablet,disintegrating 4 mg PO Q8H PRN (Reason: nausea and vomiting) Qty: 10 0RF No Action fluoxetine [Prozac] 20 mg capsule 40 mg PO DAILY Label Comments: take 1 capsule by mouth as directed Primary Care Provider: Care Physician,No Primary Referrals: Anil Jones MD [Med Staff - Sr. Merchandise Planner] - 1 Week if not improving Care Physician,No Primary [Primary Care Provider] - Activity Restrictions/Additional Instructions: You can take Imodium [id number] for diarrhea. Make sure you are staying well-hydrated. Please return if symptoms worsen. Disposition Disposition: Home, Self Care Discharge Date/Time: 04/17/22 13:39
[2022-04-17] MEDS: 0.9% Normal Saline 1,000 ML 999 ML IV (12:32)
[2022-04-17] MEDS: Ondansetron 4 MG/2 ML Vial IV (12:32)
[2022-04-17] MEDS: Loperamide 2 MG Capsule 4 MG PO (12:32)
[2022-04-17 12:34] LABS: Absolute Neutrophil Count 7.2 X10^3/uL (2.0-7.7); Basophil# 0.03 X10^3/uL; Basophil% 0.4 % (0-1); Eosinophil# 0.02 X10^3/uL; Eosinophils% 0.3 % (0-5); Hematocrit 44.2 % (40-54); Hemoglobin 15.9 g/dL (13.0-16.5); Mean Corpuscular Hgb 30.6 pg (27.0-32.0); Mean Corpuscular Volume 85.2 fL (80-94); Mean Platelet Vol. 9.4 fl (6.2-12.0); Monocyte% 3.8 % (0-10); NRBC Flagged by Analyzer 0 % (0-5); Neutrophil # 7.17 X10^3/uL (2.7-7.7); POSITIVE DIFFERENTIAL YES; Platelet Count 226 K/mm3 (150-450); RBC Distribution Width SD 37.2 fl (35.1-43.9); Red Blood Count 5.19 M/mm3 (4.6-6.2)
[2022-04-17 12:42] LABS: Differential Indicated SCAN CRITERIA MET
[2022-04-17 12:44] LABS: Anion Gap 7 (5-15); BUN 20 mg/dL (7-18); BUN/Creat Ratio 23.7 RATIO (10-20); Calcium,Total 8.7 mg/dL (8.5-10.1); Chloride 105 mmol/L (98-107); Creatinine, Serum 0.84 mg/dL (0.70-1.30); EST Glomerular Filtration Rate 113 mL/min (>60); Est Glom Filt Rate - Afr Amer 136 mL/min (>60); Estimated Creatinine Clearance 131.56 ml/min; Glucose 115 mg/dL (74-106); Potassium 3.5 mmol/L (3.5-5.1); Sodium Level 139 mmol/L (136-145)
== END 2022-04-17 13:39 | disposition home or self-care (01) ==
PROVIDERS: Physician Assistant; Emergency Provider Emergency Medicine; Visit Provider Emergency Medicine
DX: K52.9 Noninfective gastroenteritis and colitis, unspecified (principal); F17.290 Nicotine dependence, other tobacco product, uncomplicated; F32.A Depression, unspecified; Z79.899 Other long term (current) drug therapy
CPT/HCPCS: 80048; 85025; 96374; 99283; J7030; A4216; J2405

== ENCOUNTER 2022-05-15 13:26 | Emergency (ER) | payer MEDICAID, SELFPAY ==
[2022-05-15 13:27] VITALS: BP 151/107; PULSE 95; RESP 16; TEMP 36.7; O2SAT 96; BMI 30.4
--- NOTE | 2022-05-15 14:00 | RAD_ITS ---
STUDY: X-RAY - LEFT ELBOW REASON FOR EXAM: Male, 31 years old. Pain. No history of trauma. Prior surgery. TECHNIQUE: 3 view(s) of the elbow. COMPARISON: Comparison is made with prior study dated 10/30/1999. FINDINGS: Deformity of the proximal ulna and cuboid healed fracture. There is degenerative arthrosis of the radiocapitellar and ulnotrochlear articulations. The soft tissue structures are unremarkable. RAD/Elbow min 3 Views IMPRESSION: Arthrosis of the elbow, as described above. No acute fracture is seen. Electronically Signed: Tae Sarmiento MD at 15:18 EST ,
--- NOTE | 2022-05-15 14:35 | EDS_ITS ---
HPI History of Present Illness Chief Complaint: Upper Extremity Injury Narrative Narrative: 31-year-old male presents with decreased range of motion of his left elbow and occasional pain that he has had over the last few days. He relays a remote history that he has broken his left elbow a few times in the last 20 years. He has had a few surgeries. He had good range of motion of his left elbow. He is right-hand dominant. He states that he developed pain on occasion in his posterior elbow. He now has decreased range of motion, especially with flexion of his elbow. He denies any fevers or chills. No recent injury. He states that he is here to be referred to the right doctor regarding his left elbow problem. He thinks he feels as if his left elbow might be dislocated. [facility] Medical History (Updated 05/15/22 @ 15:16 by Meseret Driver) Depression Left elbow fracture Opioid withdrawal syndrome Home Medications fluoxetine 20 mg capsule (Prozac) 40 mg PO DAILY 08/17/21 [History Last Taken Unknown] Allergy/AdvReac Type Severity Reaction Status Date / Time latex Allergy Hives Verified 05/15/22 15:16 Penicillins [PCN] Allergy Anaphylaxis Verified 05/15/22 15:16 venom-honey bee Allergy Swelling Verified 05/15/22 15:16 [bee venom (honey bee)] Opioids - Morphine Analogues AdvReac Other Verified 05/15/22 15:16 [narcotics] Social History Smoking Status: Current some day smoker tobacco type: e-cigarettes ROS ROS ED ROS Narrative Constitutional: No fever, no chills. HEENT: No sore throat. No neck pain. No loss of vision. No rhinorrhea. Cardiovascular: No chest pain. No palpitations. No pedal edema. Respiratory: No cough, no shortness of breath. Abdominal: No abdominal pain. No nausea. No vomiting. Genitourinary: No dysuria. No hematuria. Musculoskeletal: No myalgias. Intermittent left elbow pain. Decreased range of motion, especially flexion. Neurologic: No headaches. No dizziness. No lightheadedness. Skin: No rash. No change in color. Psychiatric: No depression. No anxiety. EXAM Physical Exam Narrative Exam Narrative: Afebrile. Vital signs noted. HEENT: Normocephalic. Atraumatic. PERRL, EOMI. Neck soft and supple. No point tenderness or step off. Cardiovascular: Regular rate and rhythm. No murmurs, rubs, or gallops appreciated. Respiratory: No tachypnea. Lungs clear to auscultation bilaterally. Gastrointestinal: Abdomen soft, nontender, with normoactive bowel sounds. No rebound or guarding. Neurological: Awake. Alert. Nonfocal, nonlateralizing. Skin: No rash. Normal color. No pallor. Musculoskeletal: No pedal edema. Able to flex, extend, pronate, and supinate left upper extremity. No erythema. No swelling. No olecranon tenderness. Palpable radial pulse. Const Vital Signs: 05/15/22 13:27 Temperature 98.1 F Temperature Source Temporal Pulse Rate 95 Respiratory Rate 16 Blood Pressure 151/107 H Blood Pressure Mean 121 Pulse Ox 96 Oxygen Delivery Method Room Air MDM MDM MDM Narrative Medical decision making narrative: Patient states that he does not have a primary care physician. He was told that he might need to start there and get physical therapy. I reviewed his prior outpatient record in an attempt to find out the physician that he saw 4 years ago when he broke his elbow. Regardless, Dr. Moore with [facility] is currently on-call. He had seen Dr. Dooley who is no longer in the area. RN ordered left elbow x-rays per protocol. I reviewed them and interpreted them. My interpretation of his left elbow x-rays show no evidence of acute fracture. There are post surgical changes and arthritic changes noted. At this point in time, I feel he can be discharged safely home with follow-up to her primary care physician for physical therapy as needed. He was also given the number to [facility]. He will take [id number] analgesics as needed for pain. Return instructions were reviewed. Disposition is discharged home in stable condition. Discharge Plan Triage Chief Complaint: Upper Extremity Injury ED Provider: Dylan Mcgill Dx/Rx/DC Orders Clinical Impression: Arthralgia of left elbow, Decreased range of motion of elbow Instructions: ED Arthralgia Prescriptions: No Action fluoxetine [Prozac] 20 mg capsule 40 mg PO DAILY Label Comments: take 1 capsule by mouth as directed Primary Care Provider: Care Physician,No Primary Referrals: Piter Mckenzie MD [Med Staff - Reclamation Worker] - As soon as possible Fortino Adrian, [Med Staff - Active Staff] - As soon as possible Care Physician,No Primary [Primary Care Provider] - Disposition Disposition: Home, Self Care
[2022-05-15 15:20] VITALS: BP 137/75; PULSE 75; RESP 18; TEMP 36.7; O2SAT 98
== END 2022-05-15 15:29 | disposition home or self-care (01) ==
PROVIDERS: Emergency Provider Emergency Medicine; Visit Provider Emergency Medicine
DX: M19.022 Primary osteoarthritis, left elbow (principal); F17.290 Nicotine dependence, other tobacco product, uncomplicated; F32.A Depression, unspecified; Z79.899 Other long term (current) drug therapy
CPT/HCPCS: 73080; 99282

== ENCOUNTER → 2023-02-04 | Outpatient (CLI) | payer OTHER, SELFPAY ==
[2023-02-04 13:44] LABS: Absolute Lymphocyte Count 2.38 X10^3/uL (0.83-4.51); Absolute Neutrophil Count 3.5 X10^3/uL (2.0-7.7); Basophil# 0.09 X10^3/uL; Basophil% 1.3 % (0-1); Eosinophil# 0.28 X10^3/uL; Eosinophils% 4.1 % (0-5); Hematocrit 44.4 % (40-54); Hemoglobin 15.3 g/dL (13.0-16.5); Lymphocyte # 2.38 X10^3/ul (0.83-4.51); Lymphocyte % 34.9 % (19-41); Mean Corp Hgb Conc 34.5 g/dL (32-36); Mean Corpuscular Hgb 28.5 pg (27.0-32.0); Mean Corpuscular Volume 82.7 fL (80-94); Mean Platelet Vol. 9.6 fl (6.2-12.0); Monocyte# 0.45 X10^3/uL; Monocyte% 6.6 % (0-10); NRBC Flagged by Analyzer 0 % (0-5); Neutrophil # 3.52 X10^3/uL (2.7-7.7); Neutrophil % 51.6 % (47-70); Platelet Count 257 K/mm3 (150-450); RBC Distribution Width CV 12.3 % (11.6-14.6); RBC Distribution Width SD 37.1 fl (35.1-43.9); Red Blood Count 5.37 M/mm3 (4.6-6.2); White Blood Count 6.8 K/mm3 (4.4-11.0)
[2023-02-04 14:17] LABS: Vitamin B12 933 pg/mL (211-911); Vitamin D,25 Hydroxy 18.6 ng/mL
[2023-02-04 14:27] LABS: ALB/GLOB Ratio 1.3 RATIO (0.9-2.4); AST(SGOT) 46 U/L (15-37); Alanine Aminotransfer ALT/SGPT 120 U/L (16-61); Albumin, Serum 4.3 g/dL (3.2-5.0); Alkaline Phosphatase 94 U/L (45-117); Anion Gap 4 (5-15); BUN 11 mg/dL (7-18); BUN/Creat Ratio 10.3 RATIO (10-20); Chloride 108 mmol/L (98-107); Creatinine, Serum 1.07 mg/dL (0.70-1.30); EST Glomerular Filtration Rate 85 mL/min (>60); Est Glom Filt Rate - Afr Amer 103 mL/min (>60); Free T3 3.4 pg/mL (2.18-3.98); Globulin 3.2 g/dL (2.2-4.2); Glucose 81 mg/dL (74-106); Potassium 3.9 mmol/L (3.5-5.1); Protein, Total 7.5 g/dL (6.4-8.2); Sodium Level 139 mmol/L (136-145); T4 Free Direct 1.01 ng/dL (0.76-1.46); T4 Total, Thyroxin 8.5 ug/dL (4.5-12.1); Thyroid Stim Hormone (TSH) 2.08 uIU/mL (0.358-3.74)
[2023-02-09 17:07] LABS: Testosterone, % Free 2.08 % (1.50-4.20); Testosterone, Free 4.49 ng/dL (5.00-21.00); Testosterone, Total 216 ng/dL (264-916)
== END | disposition home or self-care (01) ==
LOC: LAB 12:52
PROVIDERS: PCP Family Medicine; Referring Provider Family Medicine; Visit Provider Family Medicine
DX: Z01.89 Encounter for other specified special examinations (principal); F11.21 Opioid dependence, in remission
CPT/HCPCS: 36415; 80053; 82306; 82607; 82670; 84402; 84403; 84436; 84439; 84443; 84481; 85025